=== PATIENT | male | born 1940 | race Caucasian/White ===

== ENCOUNTER → 2017-10-30 | Outpatient (CLI) | payer MEDICARE ==
[~2017-10-30] MED LIST: CIPROFLOXACIN500 MG PO; GLUCOTROL; GLUCOTROL10 MG PO; HUMALOG MI100 UNITS/; IOPAMIDOL 370 MG/ML 200 ML INFUS..BTL INJ ONE; KEFLEX500 MG PO; LOSARTAN POTASS25 MG PO; METFORMIN HCL500 MG PO; METRONIDAZOLE500 MG PO; SIMVASTATIN40 MG PO; SODIUM CHLORIDE 0.9% 50ML 50 ML ONE; VENLAFAXINE HCL75 MG PO; ZOFRAN ODT4 MG PO; [UNRECOGNIZED DRUG - REMARK]
[2017-10-30 14:15] LABS: BLOOD UREA NITROGEN 10 mg/dL (7-26); BUN/CREATININE RATIO 9 (6-25); CREATININE, SERUM 1.06 mg/dL (0.72-1.25); EST GLOMERULAR FILTRATION RATE > 60 ML/MIN (60-)
--- NOTE | 2017-10-31 08:22 | Diagnostic Imaging Report ---
TECHNIQUE: Abdominopelvic and lower extremity CT with and without IV contrast. 3D reconstructions were also performed. COMPARISON: CT abdomen 04/04/2015 (report available but not images not available for review). FINDINGS: Abdominal Vasculature: Extensive calcified and non-calcified atherosclerotic plaque throughout the abdominal aorta and its major branches. The abdominal aorta is normal in caliber without aneurysm. Atherosclerotic changes with mild stenosis of the origin of the celiac artery. The SMA and JASMIN are patent. There are single patent renal arteries bilaterally. Venous phase images are not available for evaluation of the IVC. Kidneys: The kidneys are unremarkable. Abdominal Viscera: The liver, spleen, and adrenal glands are unremarkable on arterial phase images. Mild fatty atrophy of the pancreas. There is no intra-abdominal or retroperitoneal adenopathy. Possible subcentimeter distal periesophageal lymph nodes versus small distal esophageal varices. Mild nonspecific stranding in the small bowel mesentery. Normal appendix. Skeleton: There are no suspicious lytic or blastic lesions. Thorax: The visualized lungs demonstrated patchy dependent atelectasis. There are no pleural effusions. Bilateral lower extremities: The bilateral common femoral artery, superficial femoral artery, and popliteal artery are patent. Mild atherosclerotic changes are noted in the bilateral superficial femoral artery. The bilateral proximal and mid anterior and posterior tibial and peroneal arteries demonstrate atherosclerotic changes with multifocal mild to moderate stenoses, but appear patent; however there is poor opacification of the distal vessels. No delayed images were obtained. IMPRESSION No evidence of aortic aneurysm or dissection. 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 Patent celiac, SMA, and JASMIN. Patent bilateral WIRE DRAWING DIE MAKER, SFA, and popliteal arteries. Patent bilateral proximal and mid anterior and posterior tibial arteries and peroneal arteries, however the distal vessels are not opacified. Delayed images were not obtained, therefore evaluation is limited of this area (lack of opacification may reflect slow flow and evaluation for occlusion is limited). Signed by: Dr. Trina Bailey MD on 10/31/2017 8:19 AM
== END ==
LOC: CT 13:37
PROVIDERS: ATTEND Family Medicine
DX: I73.9 Peripheral vascular disease, unspecified (principal)
CPT/HCPCS: 36415; 75635; 82565; 84520; Q9967

== ENCOUNTER 2018-12-05 16:32 | Observation (INO) | payer MEDICARE ==
[~2018-12-05] VITALS: Ht 177.8 cm; Wt 81.4 kg
[~2018-12-05 16:32] MED LIST changes: -IOPAMIDOL 370 MG/ML 200 ML INFUS..BTL INJ ONE; -SODIUM CHLORIDE 0.9% 50ML 50 ML ONE
--- OUTSIDE RECORDS SUMMARY | 2018-12-05 16:35 | XMS REPORT | Summary of Care ---
Author Author [facility] Organization [facility] Address Unknown Phone Unavailable Encounter HQ Encntr_alias(FIN) [id number] Date(s): 09/21/18 - 09/21/18 [facility] [address] [place] [address]- [phone] Discharge Disposition: Home or Self Care Attending Physician: Etienne Emerson DPM Referring Physician: Etienne Emerson DPM Vital Signs No data available for this section Problem List No data available for this section Allergies, Adverse Reactions, Alerts No data available for this section Medications No data available for this section Results No data available for this section Immunizations No data available for this section Procedures No data available for this section Social History No data available for this section Assessment and Plan No data available for this section
--- OUTSIDE RECORDS SUMMARY | 2018-12-05 16:35 | XMS REPORT | Continuity of Care Document ---
Author Author [facility] [employer] [facility] [employer] Address Unknown Phone Unavailable Care Team Providers Care Hot Dip Galvanizer Name Role Phone [facility] [employer] Unavailable Unavailable Problems Problem Status Onset Date Classification Date Reported Comments Source DX: ULCER LT 1ST Active 09/07/2018 [facility] Medications No Data Provided for This Section Allergies, Adverse Reactions, Alerts No Known Medication Allergies Immunizations No Data Provided for This Section Results No Data Provided for This Section Pathology Reports No Data Provided for This Section Diagnostic Reports Report Value Date Source Foot wo contrast MRI Exam: Left Foot wo contrast MRI Clinical Indication: - L97.412 Non-pressure chronic ulcer of right heel and midfoot with fat layer exposed. Lump on plantar region near 1st metatarsal. Pain and trouble bearing weight. Comparison: None TECHNIQUE: Multiplanar, multisequence noncontrast magnetic resonance imaging of the left forefoot. IV contrast: None. FINDINGS: Bones: Visualized bone marrow signal is within normal limits. No abnormal marrow edema or decreased T1 signal to suggest osteomyelitis. No acute fracture. Soft tissues: Mild diffuse subcutaneous edema present throughout the forefoot. No focal fluid collection identified. No soft tissue mass identified. Muscles: Moderate fatty atrophy of the intrinsic muscles of the foot with mild heterogeneous increased T2/STIR signal most likely relating to chronic denervation/neuropathic change. No intramuscular fluid collection. Tendons: There is nodular thickening along the visualized portion of the plantar fascia consistent with fibromatosis. No other focal tendon signal abnormality, or evidence for tenosynovitis. IMPRESSION: 1. No evidence of osteomyelitis in the left foot. 2. Mild diffuse subcutaneous edema without focal fluid collection. 3. Plantar fascia fibromatosis. 4. Moderate foot muscle atrophy most likely relating to chronic denervation/neuropathic change. SL: [id number] 09/21/2018 [facility] Consultation Notes No Data Provided for This Section Discharge Summaries No Data Provided for This Section History and Physicals No Data Provided for This Section Vital Signs No Data Provided for This Section Encounters Location Location Details Encounter Type Encounter Number Reason For Visit Attending Provider ADM Date DC Date Status Source [facility] [id number] Etienne Emerson 09/21/2018 09/22/2018 [facility] Procedures No Data Provided for This Section Assessment and Plan No Data Provided for This Section Plan of Care No Data Provided for This Section Social History Social History Date Source No data available for this section 09/22/2018 [facility] Family History No Data Provided for This Section Advance Directives No Data Provided for This Section Functional Status No Data Provided for This Section
--- OUTSIDE RECORDS SUMMARY | 2018-12-05 16:35 | XMS REPORT ---
Author Author [facility] Address Unknown Phone Unavailable Care Team Providers Care Precision Dancer Name Role Phone Shelly PONCE Unavailable Unavailable Cristiana HERRERA Unavailable Unavailable Payers Payer Name Policy Type Policy Number Effective Date Expiration Date Problems This patient has no known problems. Allergies, Adverse Reactions, Alerts Allergy Name Allergy Type Status Severity Reaction(s) Onset Date Inactive Date Treating Clinician Comments No Known Allergies DA Active U 2017-04-12 00:00:00 Medications This patient has no known medications. Encounters Start Date/Time End Date/Time Encounter Type Admission Type Attending Clinicians Care Facility Care Department Encounter ID 2018-09-21 18:34:00 2018-09-21 18:34:00 Outpatient [id number] Results Test Description Test Time Test Comments Text Results Atomic Results Result Comments BASIC METABOLIC PANEL 2018-12-04 12:59:00 SODIUM (test code=NA) 140 mmol/L 136-145 POTASSIUM (test code=K) 4.0 mmol/L 3.5-5.1 CHLORIDE (test code=CL) 104.0 mmol/L 98-107 CARBON DIOXIDE (test code=CO2) 25.0 mmol/L 21-32 ANION GAP (test code=GAP) 15.0 10-20 GLUCOSE (test code=GLU) 239 mg/dL 74-106 BLOOD UREA NITROGEN (test code=BUN) 20 mg/dL 7-18 GLOMERULAR FILTRATION RATE (test code=GFR) > 60 mL/min >=60 Estimated GFR by using Modified MDRD formula.Chronic kidney disease is defined as either kidney damageor GFR <60 mL/min/1.73 m2 for >3 months. CREATININE (test code=CREAT) 1.00 mg/dL 0.7-1.3 BUN/CREATININE RATIO (test code=BUN/CREA) 19.2 10-20 CALCIUM (test code=CA) 8.8 mg/dL 8.5-10.1 HEPATIC FUNCTION [id number] 12:59:00* Test Item Value Reference Range Comments TOTAL PROTEIN (test code=PROT) 6.7 gram/dL 6.4-8.2 ALBUMIN (test code=ALB) 3.5 g/dL 3.4-5.0 GLOBULIN (test code=GLOB) 3.2 gram/dL 2.7-4.2 ALBUMIN/GLOBULIN RATIO (test code=A/G) 1.1 0.75-1.50 BILIRUBIN TOTAL (test code=BILT) 0.90 mg/dL 0.0-1.0 BILIRUBIN DIRECT (test code=BILD) 0.27 mg/dL 0.0-0.20 SGOT/AST (test code=AST) 28 IUnit/L 15-37 SGPT/ALT (test code=ALT) 27 IUnit/L 12-78 ALKALINE PHOSPHATASE TOTAL (test code=ALKP) 106 IUnit/L 45-117 Note change in reference range due to change in reagent. [id number] 12:59:00* Test Item Value Reference Range Comments TROPONIN-I (test code=TROPI) <0.015 ng/mL 0-0.045 [id number] 12:55:00* Test Item Value Reference Range Comments AMMONIA (test code=AMM) 21 umol/L 11-32 BASIC METABOLIC [id number] 12:48:00* Test Item Value Reference Range Comments SODIUM (test code=NA) 140 mmol/L 136-145 POTASSIUM (test code=K) 4.0 mmol/L 3.5-5.1 CHLORIDE (test code=CL) 104.0 mmol/L 98-107 CARBON DIOXIDE (test code=CO2) mmol/L 21-32 ANION GAP (test code=GAP) 10-20 GLUCOSE (test code=GLU) mg/dL 74-106 BLOOD UREA NITROGEN (test code=BUN) mg/dL 7-18 GLOMERULAR FILTRATION RATE (test code=GFR) mL/min >=60 CREATININE (test code=CREAT) mg/dL 0.7-1.3 BUN/CREATININE RATIO (test code=BUN/CREA) 10-20 CALCIUM (test code=CA) mg/dL 8.5-10.1 HEPATIC FUNCTION [id number] 12:48:00* Test Item Value Reference Range Comments TOTAL PROTEIN (test code=PROT) gram/dL 6.4-8.2 ALBUMIN (test code=ALB) g/dL 3.4-5.0 GLOBULIN (test code=GLOB) gram/dL 2.7-4.2 ALBUMIN/GLOBULIN RATIO (test code=A/G) 0.75-1.50 BILIRUBIN TOTAL (test code=BILT) mg/dL 0.0-1.0 BILIRUBIN DIRECT (test code=BILD) mg/dL 0.0-0.20 SGOT/AST (test code=AST) IUnit/L 15-37 SGPT/ALT (test code=ALT) IUnit/L 12-78 ALKALINE PHOSPHATASE TOTAL (test code=ALKP) IUnit/L 45-117 [id number] 12:48:00* Test Item Value Reference Range Comments TROPONIN-I (test code=TROPI) ng/mL 0-0.045 CBC W/O [id number] 12:46:00* Test Item Value Reference Range Comments WHITE BLOOD CELL (test code=WBC) 10.6 K/mm3 4.5-12.5 RED BLOOD CELL (test code=RBC) 3.98 mill/mm3 4.0-5.8 HEMOGLOBIN (test code=HGB) 8.7 gram/dL 13.0-17.5 HEMATOCRIT (test code=HCT) 29.6 % 42.0-52.0 MEAN CELL VOLUME (test code=MCV) 74.4 fL 80-98 MEAN CELL HGB (test code=MCH) 21.9 picogram 27.0-33.0 MEAN CELL HGB CONCETRATION (test code=MCHC) 29.4 gram/dL 33.0-36.0 RED CELL DISTRIBUTION WIDTH (test code=RDW) 18.7 % 11.6-16.2 PLATELET COUNT (test code=PLT) 218 K/mm3 150-450 MEAN PLATELET VOLUME (test code=MPV) 10.6 fL 6.7-11.0 - XR CHEST 1 [id number] 11:02:00 FAX: Giuliana Ames [phone] [place]: St: REG FAX: Mulugeta Hadley DO Name: OTILIA ROCKJANE CARRILLO [facility] : 1940 Age/S: 78/M [address] [facility] Unit #: [id number] Loc: [place] [address] Phys: Mulugeta Hadley DO Acct: [id number] Dis Date: Status: REG ER PHONE #: [phone] Exam Date: 12/04/2018 1051 FAX #: [phone] Reason: Altered Mental Status EXAMS: CPT CODE: [id number] XR CHEST 1 V 25472 HISTORY: Confusion. COMPARISON: X-ray from March 15, 2005. No acute infiltrates, effusion or congestion is noted. Hyperinflation. The cardiac and mediastinal silhouette are within normal limits. IMPRESSION: No acute infiltrates, effusion or congestion. at 1102 Reported and signed by: Alphonso Gonzalez M.D. CC: Giuliana Miguel MD; Mulugeta Hadley DO Technologist: HENRY CASTILLO JR Trnscrd Date/Time/By: 12/04/2018 (1102) : By: [email or web address] Orig Print D/T: S: 12/04/2018 (7624) PAGE 1 Signed Report URINALYSIS [id number] 11:01:00* Test Item Value Reference Range Comments UA COLOR (test code=COLU) YELLOW YELLOW UA APPEARANCE (test code=APPU) CLEAR CLEAR UA GLUCOSE DIPSTICK (test code=DGLUU) >1000 (4+) mg/dL NEGATIVE UA BILIRUBIN DIPSTICK (test code=BILU) NEGATIVE mg/dL NEGATIVE UA KETONE DIPSTICK (test code=KETU) 40 (2+) mg/dL NEGATIVE UA SPECIFIC GRAVITY (test code=SGU) 1.033 1.001-1.035 UA BLOOD DIPSTICK (test code=GEORGINA) Negative mg/dL NEGATIVE UA PH DIPSTICK (test code=NARESH) 5.5 5.0-8.0 UA PROTEIN DIPSTICK (test code=PROU) 20 (Trace) mg/dL NEGATIVE UA UROBILINIOGEN DIPSTICK (test code=URO) Normal mg/dL NEGATIVE UA NITRITE DIPSTICK (test code=AMY) NEGATIVE NEGATIVE UA LEUKOCYTE ESTERASE W REFLEX (test code=LEUUR) NEGATIVE Uriel/uL NEGATIVE UA WBC (test code=WBCU) 0-5 per HPF 0-5 UA RBC (test code=RBCU) 0-2 #/HPF 0-5 UA EPITHELIAL CELLS (test code=EPIU) FEW per HPF FEW UA BACTERIA (test code=BACU) FEW #/HPF NONE UA MUCUS (test code=MUCU) FEW #/LPF FEW Urine Source? Clean CatchCTA ABD/PEL/RUN [id number] 07:45:00 [place] [address] Patient Name: CARLITO ROCK MR #: [id number] : 1940 Age/Sex: 77/M Req #: [id number] Adm Physician: Ordered by: LEOLA PONCE MD Report #: [id number] Location: CT Room/Bed: Procedure: [id number] CT/CTA ABD/PEL/RUN OFF Exam Date: 10/30/17 Exam Time: 1450 REPORT STATUS: Signed TECHNIQUE: Abdominopelvic and lower extremity CT with and without IV c ontrast. 3D reconstructions were also performed. COMPARISON: CT abdomen 04/04/2015 (report available but not images not available for review). F INDINGS: Abdominal Vasculature: Extensive calcified and non-calcified atherosc lerotic plaque throughout the abdominal aorta and its major branches. The abd ominal aorta is normal in caliber without aneurysm. Atherosclerotic changes w ith mild stenosis of the origin of the celiac artery. The SMA and JASMIN are jaramillo nt. There are single patent renal arteries bilaterally. Venous phase images a re not available for evaluation of the IVC. Kidneys: The kidneys are unre markable. Abdominal Viscera: The liver, spleen, and adrenal glands are unre markable on arterial phase images. Mild fatty atrophy of the pancreas. There i s no intra-abdominal or retroperitoneal adenopathy. Possible subcentimeter dis travis periesophageal lymph nodes versus small distal esophageal varices. Mild nonspecific stranding in the small bowel mesentery. Normal appendix. Skele ton: There are no suspicious lytic or blastic lesions. Thorax: The visualiz ed lungs demonstrated patchy dependent atelectasis. There are no pleural effus ions. Bilateral lower extremities: The bilateral common femoral artery, s uperficial femoral artery, and popliteal artery are patent. Mild atherosclerot ic changes are noted in the bilateral superficial femoral artery. The bilatera l proximal and mid anterior and posterior tibial and peroneal arteries demonst rate atherosclerotic changes with multifocal mild to moderate stenoses, but ap pear patent; however there is poor opacification of the distal vessels. No del ayed images were obtained. IMPRESSION No evidence of aortic aneurysm or dissection. 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 Patent celiac, S MA, and JASMIN. Patent bilateral MANAGER CONTINUOUS IMPROVEMENT, SFA, and popliteal arteries. Patent nevin ateral proximal and mid anterior and posterior tibial arteries and peroneal ar teries, however the distal vessels are not opacified. Delayed images were not obtained, therefore evaluation is limited of this area (lack of opacification may reflect slow flow and evaluation for occlusion is limited). Signed by : Dr. Chris Ayala MD on 10/31/2017 8:19 AM Dictated By: CHRIS AYALA MD Radha ctronically Signed By: CHRIS AYALA MD on 10/31/17818 Transcribed By: FISH raines 10/31/17818 COPY TO: LEOLA PONCE MD MRI SHOULDER LEFT WO [facility] [address] [address] Patient Name: CARLITO ROCK MR #: [id number] : 1940 Age/Sex: 76/M Req #: [id number] Adm Physician: Ordered by: REDDY HERRERA MD Report #: [id number] Location: MRI Room/Bed: Procedure: [id number] MRI/MRI SHOULDER L EFT WO Exam Date: 03/03/17 Exam Time: 1430 REP ORT STATUS: Signed TECHNIQUE: Magnetic resonance imaging of the LEFT SHOULD ER was performed WITHOUT injected contrast. COMPARISON: None available. HISTORY: Pain FINDINGS: MUSCLES AND TENDONS: Rotator Cuff: Tendons: Large focus of globular bursal surface calcific tendinopathy involving the supraspinatus and infraspinatus extending 3 cm in transverse dimension. Bursal surface fraying without full-thickness rotator cuff tear. Muscles: No focal muscle atrophy. Biceps Tendon: The long head of the biceps tendon is intact and within the intertube rcular groove. GLENOHUMERAL JOINT: Glenoid Labrum: No displaced tea r. Articular Cartilage: No focal defect. AC JOINT AND ACROMION: Mild hypertrophic degenerative changes of the acromioclavicular joint. The acromion is unremarkable. BONE: None No acute fracture. SOFT TISSUES: Subacromial subdeltoid bursitis. IMPRESSION: Large focus of bur tolu surface calcific tendinopathy of the supraspinatus/infraspinatus with burs al surface fraying and subacromial subdeltoid bursitis. No full thickness rotator cuff tear. Signed by: Dr. Nohelia Fuller M.D. on 03/03/2017 3:31 PM Dictated By: NOHELIA FULLER MD 153 Transcribed By: FISH on 03/03/171530 COPY TO: REDDY HERRERA MD SHOULDER LEFT COMPLETE [place] [address] Patient Name: CARLITO ROCK MR #: [id number] : 1940 Age/Sex: 76/M Req #: [id number] Adm Physician: Ordered by: REDDY HERRERA MD Report #: [id number] Location: [facility] Room/Bed: Procedure: [id number] DX/SHOULDER LEFT C OMPLETE Exam Date: 01/20/17 Exam Time: 1210 RE PORT STATUS: Signed PROCEDURE: SHOULDER LEFT COMPLETE TECHNIQUE: Roller Coaster Operator al and external rotation AP views left shoulder INDICATION: Shoulder pain COMPARISON: None. FINDINGS: The left shoulder is intact. Mild glenohum eral joint space narrowing with marginal osteophytosis. Calcification at the greater tubercle soft tissues. Mild acromioclavicular joint space narrowing w ith osteophytosis. Intact regional skeleton. Normal soft tissues. C ONCLUSION: 1. Mild glenohumeral and acromioclavicular degenerative change. 2 . Calcification superior to the greater tubercle suggesting calcific tendinos is Dictated by: Kris Olivas M.D. on 01/20/2017 at 12:42 Electronically approved by: Kris Olivas M.D. on 01/20/2017 at 12:42 Dictated By: KRIS OLIVAS MD 1242 Transcribed By: CLAUDETTE on 01/20/17 1242 COPY TO: REDDY HERRERA MD
[2018-12-05 17:15] VITALS: BP 146/60
[2018-12-05 17:27] LABS: BASOPHILS % 0.2 % (0.0-1.0); EOSINOPHILS # (AUTO) 0.3 (0.0-0.4); EOSINOPHILS % 2.7 % (0.0-6.0); HEMATOCRIT 30.8 % (38.2-49.6); HEMOGLOBIN 8.9 g/dL (14.0-18.0); LYMPHOCYTES # (AUTO) 4.7 (1.0-3.2); LYMPHOCYTES % 36.7 % (18.0-39.1); MEAN CORPUSCULAR HEMOGLOBIN 21.8 pg (28-32); MEAN CORPUSCULAR HGB CONC 28.9 g/dL (31-35); MEAN CORPUSCULAR VOLUME 75.3 fL (81-99); MONOCYTES # (AUTO) 0.8 (0.2-0.8); MONOCYTES % 6.1 % (4.4-11.3); NEUTROPHILS # (AUTO) 6.9 (2.1-6.9); NEUTROPHILS % 53.9 % (38.7-80.0); PLATELET COUNT 223 x10e3/uL (140-360); RED BLOOD COUNT 4.09 x10e6/uL (4.3-5.7); RED CELL DISTRIBUTION WIDTH 19.1 % (11.7-14.4)
[2018-12-05 17:41] VITALS: BP 146/60
[2018-12-05 17:42] VITALS: BP 146/60
[2018-12-05 17:46] LABS: ALANINE AMINOTRANSFERASE 18 IU/L (0-55); ALBUMIN 3.2 g/dL (3.5-5.0); ALBUMIN/GLOBULIN RATIO 1.1 (0.8-2.0); ALKALINE PHOSPHATASE 94 IU/L (40-150); ANION GAP 12.4 mmol/L (8-16); BLOOD UREA NITROGEN 15 mg/dL (7-26); BUN/CREATININE RATIO 15 (6-25); CALCIUM 8.6 mg/dL (8.4-10.2); CARBON DIOXIDE 25 mmol/L (22-29); CHLORIDE 101 mmol/L (98-107); CREATININE, SERUM 0.97 mg/dL (0.72-1.25); EST GLOMERULAR FILTRATION RATE > 60 ML/MIN (60-); GLUCOSE 174 mg/dL (74-118); POTASSIUM 3.4 mmol/L (3.5-5.1); SODIUM 135 mmol/L (136-145)
[2018-12-05] MEDS ORDERED: VITAMIN B-121000 MCG PO (17:48)
[2018-12-05 18:04] LABS: % IRON SATURATION 5 % (15-50); IRON 28 ug/dL (65-175); TOTAL IRON BINDING CAPACITY 587 ug/dL (261-478); TRANSFERRIN 419 mg/dL (174-364)
--- NOTE | 2018-12-05 19:05 | NUR ---
RECEIVED REPORT FROM PREVIOUS NURSE. CALL LIGHT WITHIN REACH. PATIENT IN BED. DAUGHTER AT BEDSIDE
[2018-12-05] MEDS ORDERED: HUMALOG100 UNIT/1 (19:07)
[2018-12-05] MEDS ORDERED: OZEMPIC SQ (19:11)
[2018-12-05] MEDS ORDERED: ZOFRAN4 MG PO (19:16)
[2018-12-05] MEDS ORDERED: DEXTROSE 50% SYRINGE 50 ML IV PRN ×2 (19:30)
[2018-12-05] MEDS ORDERED: ONDANSETRON HCL 4 MG ORAL DISINTEGRATING TAB PO PRN (19:45)
[2018-12-05 20:00] VITALS: BP 163/65
[2018-12-05 20:31] LABS: ANISOCYTOSIS MODERATE; EOSINOPHILS % (MANUAL) 2 % (0-7); LYMPHOCYTES % (MANUAL) 35 % (19-48); MONOCYTES % (MANUAL) 3 % (3.4-9.0); NEUTROPHILS % (MANUAL) 60 % (40-74)
[2018-12-05 20:32] LABS: HYPOCHROMASIA MODERATE; PLATELET ESTIMATE ADEQUATE; PLATELET MORPHOLOGY COMMENT NORMAL; RBC MORPHOLOGY COMMENT ABNORMAL
[2018-12-05 20:44] VITALS: BP 163/65
[2018-12-05] MEDS ORDERED: INSULIN LISPRO 100 UNIT/1 ML 3ML VIAL SQ SCH (21:00)
[2018-12-05] MEDS: INSULIN LISPRO 100 UNIT/1 ML 3ML VIAL SQ SCH (21:04)
[2018-12-05] MEDS ORDERED: SODIUM CHLORIDE 0.9% 50ML 50 ML ONE (23:37)
[2018-12-05] MEDS ORDERED: IOPAMIDOL 370 MG/ML 200 ML INFUS..BTL INJ ONE (23:37)
[2018-12-06] VITALS (7 sets, daily range): BP systolic 141–166; BP diastolic 61–66
--- NOTE | 2018-12-06 00:11 | Consultation ---
DATE OF CONSULTATION: 12/05/2018 GI consult note REASON FOR CONSULT: 1. Microcytic anemia, likely iron deficiency. 2. Cryptogenic liver cirrhosis with esophageal varices. HISTORY OF PRESENT ILLNESS: A 78 years old very pleasant male, who got admitted with probable hepatic encephalopathy, blood work revealed significant anemia with microcytic indices. Hemoglobin 8.9, MCV 75.3. He sees Dr. Mccall, my associate, as an outpatient. No episode of any heparin, hematemesis, hematochezia, or melena reported. The patient denies any abdominal pain. Tolerating oral diet. He has had several loose BM today this morning. REVIEW OF SYSTEMS: 12-point system reviewed, symptomatology is limited as per HPI. PAST MEDICAL HISTORY: Diabetes, hypertension, dyslipidemia, and depression, cryptogenic liver cirrhosis, and esophageal varices. PAST SURGICAL HISTORY: Noncontributory. FAMILY HISTORY: Negative for any GI or DIRECTOR OF STRATEGIC ALLIANCES malignancies. SOCIAL HISTORY: No smoking, alcohol, or any illicit drug use. ALLERGIES: NONE. HOME MEDICATIONS: Vitamin B12, insulin lispro, metformin, Zofran, and venlafaxine. PHYSICAL EXAMINATION: VITAL SIGNS: Temperature 98.2, pulse 58, respirations 17, and blood pressure 163/65, and oxygen saturation 100% on room air. GENERAL: Alert, awake, oriented, and coherent. HEENT: Oral mucosa is moist. Anicteric sclerae. CARDIOVASCULAR SYSTEM: S1, S2. Regular. LUNGS: Bilaterally grossly clear. ABDOMEN: Soft, nontender. No palpable mass or hernia, no palpable shifting dullness. No mass or hernia. Bowel sounds present. EXTREMITIES: Warm. No leg edema. LABORATORY DATA: Sodium 135, potassium 3.4, chloride 101, bicarb 25, BUN 15, creatinine 0.97, and glucose 174. Liver enzymes showed a total bilirubin 0.9, AST 19, ALT 18, alkaline phosphatase 94, and ammonia level 91. Iron profile showed serum iron 28, TIBC of 587, iron saturation 5. No imaging studies performed. IMPRESSION: 1. Microcytic anemia, iron profile suggestive of iron deficiency. 2. Documented cryptogenic liver cirrhosis, (likely due to underlying nonalcoholic steatohepatitis), one of the CT scan performed in 2017 showed idiopathic esophageal varices without radiographic evidence of any liver cirrhosis, ascites, or portal hypertension. PLAN: Check stool for occult blood. If stool for occult blood is positive, then this will warrant further workup with bidirectional endoscopy. This can electively be done as an outpatient. Low-salt diet and lactulose to ensure one or two bowel movement daily. Contrast enhanced CT of the abdomen and pelvis to check liver morphology, ascites and an evidence of any portal hypertension. The patient's platelet count is normal. Therefore, likelihood of portal hypertension is less. However, the patient's platelet count was noted quite low in 2014. Therefore, portal hypertension cannot be completely excluded. I thank Dr. Hickman for allowing me to participate in the care of this patient. Mika Conde MD SA/BART /[id number]
--- NOTE | 2018-12-06 01:33 | Diagnostic Imaging Report ---
EXAM: CT Abdomen and Pelvis WITH contrast INDICATION: ^Liver cirrhosis, portal hypertension , weakness vomiting COMPARISON: Abdominal CT 10/30/2017 TECHNIQUE: Abdomen and pelvis were scanned utilizing a multidetector helical scanner from the lung base to the pubic symphysis after administration of IV contrast. Coronal and sagittal reformations were obtained. Routine protocol was performed. Scan was performed when during portal venous phase. IV CONTRAST: 100 mL of Isovue 370 ORAL CONTRAST: None COMPLICATIONS: None RADIATION DOSE: Total DLP: 434 mGy*cm Estimated effective dose: (DLP x 0.015 x size factor) mSv CTDIvol has been reviewed. It is below the limits set by the Radiation Protocol Committee (RPC). Dose modulation, iterative reconstruction, and/or weight based adjustment of the mA/kV was utilized to reduce the radiation dose to as low as reasonably achievable. FINDINGS: LINES and TUBES: None. LOWER THORAX: There is bibasilar atelectasis. HEPATOBILIARY: Widened hepatic fissure. No focal hepatic lesions. No biliary ductal dilation. GALLBLADDER: A small radiopaque gallstone in the gallbladder neck. No wall thickening. SPLEEN: Mild splenomegaly, measures up to 13 cm in maximum dimension. PANCREAS: No focal masses or ductal dilatation. ADRENALS: No adrenal nodules KIDNEYS/URETERS: Kidneys enhance symmetrically. No hydronephrosis. No cystic or solid mass lesions. No stones. GI TRACT: No abnormal distention, wall thickening, or evidence of bowel obstruction. There are diverticula within the colon without evidence of diverticulitis. Appendix is normal. PELVIC ORGANS/BLADDER: Circumferential bladder wall thickening. Mild prostatomegaly. LYMPH NODES: No lymphadenopathy. VESSELS: Esophageal varices. Calcifications of the abdominal aorta and major branches. Main portal vein measures 1.5 cm in diameter, slightly dilated. PERITONEUM / RETROPERITONEUM: No free air or fluid. BONES: There are degenerative changes in the lumbar spine. SOFT TISSUES: Rectus diastases. IMPRESSION: 1. Findings of hepatic cirrhosis with portal hypertension including gastroesophageal varices and mild splenomegaly. 2. Circumferential urinary bladder wall thickening, correlate for cystitis. Signed by: Buzz Rodríguez DO on 12/06/2018 1:29 AM
--- NOTE | 2018-12-06 07:13 | History and Physical ---
HISTORY OF PRESENT ILLNESS: This is a 78-year-old gentleman who comes in with intractable nausea, vomiting, and has been in the ER recently, was sent home. The patient comes to the office yesterday with nausea, vomiting and excessive tiredness and fatigue. He was admitted directly to the hospital for observation for possible fluids and also for possible endoscopy secondary to microcytic anemia. PAST MEDICAL HISTORY: History of cirrhosis of the liver. The patient has a history of diabetes mellitus, uncontrolled, hypertension, hyperlipidemia, depression and history of esophageal varices about two years ago. FAMILY HISTORY: The patient is positive for diabetes and hypertension. SOCIAL HISTORY: No EtOH. No history of IV drug abuse. No history of alcohol either. ALLERGIES: NO RECORDED ALLERGIES. MEDICATIONS: He takes at home are insulin lispro, insulin Lantus, metformin 500 mg twice a day, Zofran 4 mg was given recently, venlafaxine 75 mg daily. The patient also takes Ozempic 1 unit subcutaneously daily. REVIEW OF SYSTEMS: Negative for chest pain. No shortness of breath. Positive for extreme fatigue. Positive for nausea. Positive for vomiting. No diarrhea. No constipation. No rectal bleeding. No hematochezia. No hematemesis. The patient has no diplopia. No blurry vision. Positive for repeated falls and also decreased sensory perception in the lower extremity with frequent falls. PHYSICAL EXAMINATION: GENERAL: The patient is alert and oriented x3. VITAL SIGNS: The patient's temperature is 99.3, pulse of 66, respirations of 16, and blood pressure is 152/61. HEENT: Normocephalic, atraumatic. Pupils are reactive to light and accommodation. The patient does not have any icterus. CVS: S1, S2 normal. Regular rate and rhythm. ABDOMEN: Nontender, nondistended. EXTREMITIES: No clubbing. No cyanosis. No edema. MENTAL STATUS: Alert and oriented x3. Slow in processing. LAB[place]ATORY [place]: [place] [address], hemoglobin is 8.9, hematocrit of 30.8, platelet count is 223. No left shift present. The patient's chemistry show a sodium of 135, potassium of 3.4, BUN was 15, creatinine 0.97, glucose of 174. Iron was 28, TIBC 587, percent saturation of 5, transferrin is 519. Ammonia was 91. ASSESSMENT: A 78-year-old male with history of cryptogenic cirrhosis with dehydration. PLAN: 1. To give the patient IV fluids with potassium in it, give a L to 2 L. 2. Check labs tomorrow. 3. Dr. Mika Conde has seen the patient for cirrhosis and also probably for idiopathic varices. The patient will probably warrant works for varices. 4. Hepatic encephalopathy. We will continue the patient on lactulose to ensure 2-3 bowel movements a day. 5. CT scan shows cirrhosis and mild splenomegaly. We will continue monitoring the patient's liver status. 6. Diabetes mellitus. Continue on current home medication. We will hold off on Ozempic, this might have caused nausea and vomiting. 7. Portal hypertension secondary to liver with cirrhosis and splenomegaly. We will continue monitoring it. Further recommendation per clinical course. We will continue to monitor the patient. Possible discharge in 1 to 2 days. We will keep the patient on observation. MD JC Hameed/ANATOLIYL /[id number]
--- NOTE | 2018-12-06 07:24 | NUR ---
GAVE REPORT TO ONCOMING NURSE. CALL LIGHT WITHIN REACH. PATIENT IN BED ASLEEP.
[2018-12-06] MEDS: METFORMIN HCL 500 MG TAB PO SCH ×2 (08:35→17:18)
[2018-12-06] MEDS: VENLAFAXINE HCL 75 MG TAB PO SCH (08:36)
[2018-12-06] MEDS: CYANOCOBALAMIN 1,000 MCG TAB PO SCH (08:36)
[2018-12-06] MEDS: IRON SUCROSE 100 MG in SODIUM CHLORIDE 0.9% 100 ML 100 ML IV SCH (08:56)
[2018-12-06] MEDS: KCL 20MEQ/.9 SOD CHL 1,000 ML IV SCH ×2 (08:57→22:28)
[2018-12-06] MEDS: INSULIN LISPRO 100 UNIT/1 ML 3ML VIAL SQ SCH ×4 (09:03→21:26)
[2018-12-06 14:24] LABS: BILIRUBIN,URINE NEGATIVE (NEGATIVE); CLARITY,URINE SL CLOUDY (CLEAR); COLOR,URINE YELLOW (YELLOW); KETONES,URINE NEGATIVE (NEGATIVE); LEUKOCYTE ESTERASE ,URINE NEGATIVE (NEGATIVE); NITRITE,URINE NEGATIVE (NEGATIVE); PROTEIN,URINE DIPSTICK NEGATIVE (NEGATIVE); URINE UROBILINOGEN 0.2 mg/dL (0.2 - 1)
[2018-12-06 14:36] LABS: BACTERIA,URINE MODERATE /HPF; EPITHELIAL CELLS,URINE FEW /LPF; MUCUS,URINE MODERATE (RARE)
--- NOTE | 2018-12-06 19:00 | NUR ---
Received report from previous nurse. call light within reach. patient in bed.
[2018-12-07] VITALS (8 sets, daily range): BP systolic 124–162; BP diastolic 44–73
[2018-12-07 05:29] LABS: BASOPHILS % 0.1 % (0.0-1.0); EOSINOPHILS % 10.5 % (0.0-6.0); HEMOGLOBIN 7.5 g/dL (14.0-18.0); LYMPHOCYTES # (AUTO) 4.6 (1.0-3.2); MEAN CORPUSCULAR HEMOGLOBIN 21.6 pg (28-32); MEAN CORPUSCULAR HGB CONC 28.8 g/dL (31-35); MEAN CORPUSCULAR VOLUME 74.9 fL (81-99); MONOCYTES # (AUTO) 0.7 (0.2-0.8); MONOCYTES % 7.2 % (4.4-11.3); NEUTROPHILS # (AUTO) 3.3 (2.1-6.9); NEUTROPHILS % 33.8 % (38.7-80.0); PLATELET COUNT 188 x10e3/uL (140-360); RED BLOOD COUNT 3.47 x10e6/uL (4.3-5.7); RED CELL DISTRIBUTION WIDTH 19.1 % (11.7-14.4)
[2018-12-07 05:45] LABS: ALANINE AMINOTRANSFERASE 16 IU/L (0-55); ALBUMIN 2.9 g/dL (3.5-5.0); ALBUMIN/GLOBULIN RATIO 1.3 (0.8-2.0); ALKALINE PHOSPHATASE 79 IU/L (40-150); ANION GAP 10.6 mmol/L (8-16); BLOOD UREA NITROGEN 5 mg/dL (7-26); BUN/CREATININE RATIO 7 (6-25); CALCIUM 8.2 mg/dL (8.4-10.2); CARBON DIOXIDE 26 mmol/L (22-29); CHLORIDE 109 mmol/L (98-107); CREATININE, SERUM 0.75 mg/dL (0.72-1.25); EST GLOMERULAR FILTRATION RATE > 60 ML/MIN (60-); GLUCOSE 97 mg/dL (74-118); POTASSIUM 3.6 mmol/L (3.5-5.1); SODIUM 142 mmol/L (136-145)
--- NOTE | 2018-12-07 06:05 | NUR ---
PATIENT RECEIVED FROM [facility] PER WHEEL CHAIR. ALERT AND VERBALLY RESPONSIVE. REQUESTED AND RECEIVED A CUP OF ICE WATER. IN BED WITH CALL LIGHT AT REACH. INSTRUCTED TO CALL FOR ASSISTANCE NEEDED.
--- NOTE | 2018-12-07 07:09 | NUR ---
Gave report to oncoming nurse. call light within reach. patient asleep in bed.
--- NOTE | 2018-12-07 07:14 | Progress Note ---
DATE: SUBJECTIVE: The patient is a 78-year-old male, who comes in with dehydration, hyperkalemia, chronic liver disease, cirrhosis of the liver, and anemia. Currently, the patient is still feeling a little nauseous. No other complaints. No chest pain or shortness of breath. No nausea, vomiting, diarrhea and no constipation. LABORATORY VALUES: White count is down today at 9.6, however, his hemoglobin has dropped a point to 7.5 and hematocrit is 26.7. The patient has microcytic anemia. MCV is 74.9 and MCH 21.6. Chemistry shows sodium of 142, potassium 3.6, BUN of 5 and creatinine 0.75. Iron panel, transferrin is 419, percentage saturation of 5, and TIBC 587. OBJECTIVE: VITAL SIGNS: Temperature is 96.8, pulse of 66, respirations of 16, and blood pressure is 128/62. HEENT: Normocephalic and atraumatic. Pupils are reactive to light and accommodation. CVS: S1 and S2 normal. Regular rate and rhythm. ABDOMEN: Nontender and nondistended. EXTREMITIES: No clubbing. No cyanosis. Positive for trace edema. ASSESSMENT: 1. 78-year-old male with cryptogenic cirrhosis. 2. Dehydration. 3. Anemia. 4. Encephalopathy. 5. Debility. 6. Probable portal hypertension. 7. Diabetes mellitus. PLAN: 1. Discontinue the fluids today. 2. Advance his diet. 3. Check a CBC tomorrow for trend of hemoglobin. 4. Continue with iron infusion. 5. Continue with lactulose to ensure 2-3 bowel movements a day. The patient is progressing. No signs of bleeding noted. Hemoccult was negative. Further recommendation per clinical course. We will continue to monitor the patient and also we will follow up with GI. Possible discharge tomorrow depending on the trend of hemoglobin. MD JC Hameed/ANATOLIYL /[id number]
[2018-12-07] MEDS: INSULIN LISPRO 100 UNIT/1 ML 3ML VIAL SQ SCH ×4 (07:30→21:46)
[2018-12-07 08:01] LABS: EOSINOPHILS % (MANUAL) 9 % (0-7); LYMPHOCYTES % (MANUAL) 55 % (19-48); NEUTROPHILS % (MANUAL) 36 % (40-74)
[2018-12-07 08:02] LABS: PLATELET ESTIMATE MODERATELY DECREASED; RBC MORPHOLOGY COMMENT NORMAL
[2018-12-07 08:13] LABS: ALANINE AMINOTRANSFERASE 17 IU/L (0-55); ALBUMIN 2.9 g/dL (3.5-5.0); ALBUMIN/GLOBULIN RATIO 1.2 (0.8-2.0); ALKALINE PHOSPHATASE 80 IU/L (40-150); ANION GAP 11.6 mmol/L (8-16); BLOOD UREA NITROGEN 5 mg/dL (7-26); BUN/CREATININE RATIO 6 (6-25); CALCIUM 8.5 mg/dL (8.4-10.2); CARBON DIOXIDE 25 mmol/L (22-29); CHLORIDE 108 mmol/L (98-107); CREATININE, SERUM 0.78 mg/dL (0.72-1.25); EST GLOMERULAR FILTRATION RATE > 60 ML/MIN (60-); GLUCOSE 100 mg/dL (74-118); POTASSIUM 3.6 mmol/L (3.5-5.1); SODIUM 141 mmol/L (136-145)
[2018-12-07] MEDS: IRON SUCROSE 100 MG in SODIUM CHLORIDE 0.9% 100 ML 100 ML IV SCH (09:48)
[2018-12-07] MEDS: CYANOCOBALAMIN 1,000 MCG TAB PO SCH (09:48)
[2018-12-07] MEDS: VENLAFAXINE HCL 75 MG TAB PO SCH (09:48)
[2018-12-07] MEDS: METFORMIN HCL 500 MG TAB PO SCH ×2 (09:48→17:36)
[2018-12-08 00:18] VITALS: BP 151/69
--- NOTE | 2018-12-08 01:09 | Progress Note ---
DATE: 12/07/2018 SUBJECTIVE: The patient is much coherent, tolerating oral diet. Regular bowel movement. Denies any abdominal pain. REVIEW OF SYSTEMS: GENERAL: No fever or chills. CVS: No chest pain or palpitation. RESPIRATORY: No cough or expectoration. MEDICATIONS: Reviewed as per JUN. OBJECTIVE: VITAL SIGNS: Temperature 98, pulse 54, respirations 17, blood pressure 129/56, oxygen saturation 97% on room air. GENERAL: Not in any acute distress. HEENT: Oral mucosa is moist. Anicteric sclerae. ABDOMEN: Soft, nondistended. No palpable mass or hernia. No appreciable shifting dullness. Bowel sounds present. LABORATORY DATA: Sodium 141, potassium 3.6, chloride 108, bicarb 25, BUN 5 and creatinine 0.78. Liver enzymes showed AST 27, ALT 17, alkaline phosphatase 80, and total bilirubin 0.6. WBC 9.6, hemoglobin 7.5, down from 8.9, hematocrit 26.0, MCV 74.9, and platelet count 188. Stool occult blood negative. CT of the abdomen and pelvis on 12/05/2018 with IV contrast showed a cirrhotic morphology of the liver, underlying portal hypertension, circumferential urinary bladder wall thickening. IMPRESSION: Microcytic anemia, stool occult blood is negative. Cryptogenic liver cirrhosis. The patient's hemoglobin is relatively stable. No gross GI bleeding. Stool occult is heme negative. We will continue testing stool for occult blood. Dr. Mccall is his library services assistant. Once patient discharged then, he can follow with Dr. Mccall. The patient is having regular BM without any lactulose. Consider lactulose if patient develops any constipation. Mika Conde MD SA/MODL /[id number]
[2018-12-08 05:03] VITALS: BP 133/63
[2018-12-08 05:29] LABS: BASOPHILS % 0.3 % (0.0-1.0); EOSINOPHILS # (AUTO) 1.6 (0.0-0.4); EOSINOPHILS % 14.2 % (0.0-6.0); HEMOGLOBIN 7.8 g/dL (14.0-18.0); LYMPHOCYTES % 44.9 % (18.0-39.1); MEAN CORPUSCULAR HEMOGLOBIN 21.7 pg (28-32); MEAN CORPUSCULAR HGB CONC 28.9 g/dL (31-35); MEAN CORPUSCULAR VOLUME 75.2 fL (81-99); MONOCYTES # (AUTO) 0.6 (0.2-0.8); MONOCYTES % 5.8 % (4.4-11.3); NEUTROPHILS # (AUTO) 3.8 (2.1-6.9); PLATELET COUNT 183 x10e3/uL (140-360); RED BLOOD COUNT 3.59 x10e6/uL (4.3-5.7); RED CELL DISTRIBUTION WIDTH 19.3 % (11.7-14.4)
--- NOTE | 2018-12-08 07:17 | NUR ---
PATIENT IN BED RESTING WITH EYES CLOSED, NO RESPIRATORY DISTRESS OBSERVED. BED IN LOWER POSITION AND LOCKED. CALL LIGHT AT REACH.
[2018-12-08] MEDS: INSULIN LISPRO 100 UNIT/1 ML 3ML VIAL SQ SCH (07:30)
[2018-12-08 07:35] VITALS: BP 143/68
[2018-12-08 07:47] LABS: EOSINOPHILS % (MANUAL) 10 % (0-7); LYMPHOCYTES % (MANUAL) 34 % (19-48); MONOCYTES % (MANUAL) 10 % (3.4-9.0); NEUTROPHILS % (MANUAL) 46 % (40-74)
[2018-12-08 07:51] LABS: ANISOCYTOSIS SLIGHT; MICROCYTOSIS SLIGHT; PLATELET ESTIMATE ADEQUATE; PLATELET MORPHOLOGY COMMENT NORMAL; RBC MORPHOLOGY COMMENT NORMAL
[2018-12-08 08:11] VITALS: BP 143/68
--- NOTE | 2018-12-08 08:41 | Operative Report ---
progress note Joao Hickman MD SUBJECTIVE: This patient comes in with acute mental status changes, dehydration, and anemia. The patient has been seen by Dr. Mika Conde, partner of Dr. Mccall. Endoscopy has been refrained from the patient, coags were negative. The patient was found to have iron deficiency anemia. Venofer has been given to the patient and the patient is feeling better. Discussed with the patient in detail about the need for having 3-4 soft bowel movements a day to decrease the ammonia level. Currently asymptomatic. No chest pain. No shortness of breath. Still wobbly on his feet secondary to diabetic neuropathy. OBJECTIVE: VITAL SIGNS: Temperature is 98.2, pulse of 70, respirations of 18, blood pressure is 133/63, pulse oximetry of 98% and he is on room air. HEENT: Normocephalic, atraumatic. Pupils are reactive to light and accommodation. CVS: S1, S2 normal. Regular rate and rhythm. ABDOMEN: Soft, protuberant. No ascites. EXTREMITIES: No clubbing, no cyanosis. Trace edema. LABORATORY VALUES: The patient's white count is 11,000, hemoglobin of 7.8, hematocrit of 37, platelet count is 183, neutrophil count of 34. Chemistry show a sodium of 141, potassium of 3.6, CO2 of 25, BUN of 5, creatinine 0.78, glucose is 196, calcium 8.5. ALT and AST within normal limits. The patient's iron was 28. The patient's CT scan shows hepatic cirrhosis with portal hypertension and circumferential urinary bladder wall thickening and cholecystitis. ASSESSMENT: A 78-year-old gentleman with: 1. Cryptogenic cirrhosis. 2. Portal hypertension. 3. Dehydration. 4. Iron deficiency anemia. 5. Encephalopathy. 6. Debility. 7. Diabetes mellitus. 8. Portal hypertension. PLAN: Fluids have been discontinued. Diet has been advanced. Again, the patient has been asked to use his lactulose to have 2-3 bowel movements a day, soft. bowel movements discharged on iron nine tablets. For further information, look in the chart. The patient can be discharged today. The patient has no signs of bleeding and will be followed up by Dr. Mccall as an outpatient for possible endoscopy. MD JC Hameed/MODL /[id number] MTDD
--- NOTE | 2018-12-08 08:49 | NUR ---
CHANGED TO OBSERVATION ORDERED AND DISCUSSED WITH HIS DAUGHTER ALFRED JACKSON, AND GALDINO LETTER. VERBAL UNDERSTANDING OBTAINED. PT DISCHARGING HOME TODAY.
[2018-12-08] MEDS: CYANOCOBALAMIN 1,000 MCG TAB PO SCH (09:03)
[2018-12-08] MEDS: VENLAFAXINE HCL 75 MG TAB PO SCH (09:03)
[2018-12-08] MEDS: METFORMIN HCL 500 MG TAB PO SCH (09:03)
[2018-12-08] MEDS: IRON SUCROSE 100 MG in SODIUM CHLORIDE 0.9% 100 ML 100 ML IV SCH (10:00)
--- NOTE | 2018-12-08 11:14 | NUR ---
PATIENT HAS A DISCHARGE ORDER, AWAITING FOR HIS RIDE. IN BED WITH CALL LIGHT AT REACH. INSTRUCTED TO CALL FOR ASSISTANCE NEEDED.
[2018-12-08 12:13] VITALS: BP 138/67
--- NOTE | 2018-12-08 12:25 | NUR ---
PATIENT DISCHARGED HOME. DISCHARGE INSTRUCTIONS AND FOLLOW UP GIVEN TO PATIENT AND DAUGHTER, THEY VERBALIZED UNDERSTANDING. IV TO RIGHT FOREARM REMOVED WITH TIP INTACT. ALL PERSONAL ITEMS TAKEN WITH PATIENT. LEFT UNIT PER WHEEL CHAIR TO FRONT LOBBY IN STABLE CONDITION.
== END 2018-12-08 12:20 | disposition home or self-care (01) ==
LOC: IMCU 16:32 → OBSVTOIN 12-07 12:57 → INTOOBSV 12-07 12:57 → MED/SURG2 12-07 16:01
PROVIDERS: ADMIT Family Medicine; ATTEND Family Medicine
DX: K74.69 Other cirrhosis of liver (principal); E86.0 Dehydration; D50.9 Iron deficiency anemia, unspecified; K72.90 Hepatic failure, unspecified without coma; E11.9 Type 2 diabetes mellitus without complications; I10 Essential (primary) hypertension; E78.5 Hyperlipidemia, unspecified; F32.9 Major depressive disorder, single episode, unspecified; Z83.3 Family history of diabetes mellitus; Z82.49 Family history of ischemic heart disease and other diseases of the circulatory system; Z79.4 Long term (current) use of insulin; R16.1 Splenomegaly, not elsewhere classified; K76.6 Portal hypertension; R53.81 Other malaise
CPT/HCPCS: 36415 ×3; 74177; 80053 ×2; 81001; 82140 ×2; 82270; 82948 ×2; 83540; 84466; 85025 ×3; 87086; G0378 ×4; J1756 ×3; Q9967

== ENCOUNTER 2018-12-19 08:17 | Inpatient (IN) | payer MEDICARE ==
[~2018-12-19] VITALS: Ht 177.8 cm; Wt 81.9 kg
[~2018-12-19 08:17] MED LIST changes: +HUMALOG100 UNIT/1; +OZEMPIC SQ; +VITAMIN B-121000 MCG PO; +ZOFRAN4 MG PO
--- OUTSIDE RECORDS SUMMARY | 2018-12-19 08:20 | XMS REPORT | Continuity of Care Document ---
Author Author [email or web address] [employer] Address Unknown Phone Unavailable Care Team Providers Care Plug Stitcher Name Role Phone [facility] Unavailable Unavailable Problems Problem Status Onset Date Classification Date Reported Comments Source DX: ULCER LT 1ST Active 09/07/2018 [facility] Medications No Data Provided for This Section [...] likely relating to chronic denervation/neuropathic change. SL: [id number] 09/21/2018 [facility] Consultation Notes No Data Provided for This Section Discharge Summaries No Data Provided for This Section History and Physicals No Data Provided for This Section Vital Signs No Data Provided for This Section Encounters Location Location Details Encounter Type Encounter Number Reason For Visit Attending Provider ADM Date DC Date Status Source [facility] Out[facility] [id number] Etienne Emerson 09/21/2018 09/22/2018 [facility] Procedures No Data Provided for This Section Assessment and Plan No Data Provided for This Section Plan of Care No Data Provided for This Section Social History Social History Date Source No data available for this section 09/22/2018 [facility] Family History No Data Provided for This Section Advance Directives No Data Provided for This Section Functional Status No Data Provided for This Section
[2018-12-19] MEDS ORDERED: SODIUM CHLORIDE 0.9% 1000ML 1,000 ML IV STA ×3 (08:45→09:53)
[2018-12-19] MEDS ORDERED: SODIUM CHLORIDE 0.9% 1000ML 1,000 ML IV SCH (08:48)
[2018-12-19 08:58] LABS: BASOPHILS # (AUTO) 0.2 (0.0-0.1); BASOPHILS % 0.6 % (0.0-1.0); EOSINOPHILS # (AUTO) 12.6 (0.0-0.4); HEMATOCRIT 41.5 % (38.2-49.6); HEMOGLOBIN 12.7 g/dL (14.0-18.0); LYMPHOCYTES # (AUTO) 9.6 (1.0-3.2); LYMPHOCYTES % 31.1 % (18.0-39.1); MEAN CORPUSCULAR HEMOGLOBIN 23.6 pg (28-32); MEAN CORPUSCULAR HGB CONC 30.6 g/dL (31-35); MEAN CORPUSCULAR VOLUME 77.1 fL (81-99); MONOCYTES # (AUTO) 1.1 (0.2-0.8); MONOCYTES % 3.6 % (4.4-11.3); NEUTROPHILS # (AUTO) 7.1 (2.1-6.9); NEUTROPHILS % 23.3 % (38.7-80.0); PLATELET COUNT 267 x10e3/uL (140-360); RED BLOOD COUNT 5.38 x10e6/uL (4.3-5.7); RED CELL DISTRIBUTION WIDTH 25.2 % (11.7-14.4)
[2018-12-19] MEDS ORDERED: MORPHINE SULFATE 2 MG/ML SYR 1ML IV PRN (09:00)
[2018-12-19] MEDS ORDERED: ONDANSETRON HCL INJ 2MG/ML 2ML 2 MG/ML VIAL IV PRN (09:00)
[2018-12-19 09:01] LABS: BILIRUBIN,URINE NEGATIVE (NEGATIVE); CLARITY,URINE SL CLOUDY (CLEAR); COLOR,URINE ORANGE (YELLOW); KETONES,URINE 1+ (NEGATIVE); LEUKOCYTE ESTERASE ,URINE NEGATIVE (NEGATIVE); NITRITE,URINE NEGATIVE (NEGATIVE); PROTEIN,URINE DIPSTICK 1+ (NEGATIVE); URINE UROBILINOGEN 0.2 mg/dL (0.2 - 1)
[2018-12-19 09:06] LABS: INR 1.13
[2018-12-19] MEDS: PANTOPRAZOLE 40 MG 10ML VIAL IV SCH (09:06)
[2018-12-19 09:07] LABS: PARTIAL THROMBOPLASTIN TIME 37.2 seconds (23.8-35.5)
--- NOTE | 2018-12-19 09:14 | Diagnostic Imaging Report ---
EXAM: CHEST SINGLE (PORTABLE) DATE: 12/19/2018 8:45 AM INDICATION: Diarrhea, vomiting COMPARISON: None FINDINGS: The trachea is midline. The lungs are symmetrically expanded without evidence for focal consolidation, pneumothorax, or significant pleural effusion. The cardiomediastinal silhouette and pulmonary vasculature are within normal limits. No acute osseous abnormality is identified. IMPRESSION: No acute cardiopulmonary process identified. Signed by: Dr. Rodolfo Hodge MD on 12/19/2018 9:10 AM
[2018-12-19 09:17] LABS: ALBUMIN 3.6 g/dL (3.5-5.0); ANION GAP 17.7 mmol/L (8-16); CALCIUM 10.1 mg/dL (8.4-10.2); CREATININE, SERUM 1.3 mg/dL (0.72-1.25); POTASSIUM 3.7 mmol/L (3.5-5.1)
[2018-12-19] MEDS ORDERED: ONDANSETRON HCL INJ 2MG/ML 2ML 2 MG/ML VIAL IV ONE (09:30)
[2018-12-19] MEDS ORDERED: PANTOPRAZOLE 40 MG 10ML VIAL IV ONE (09:30)
--- OUTSIDE RECORDS SUMMARY | 2018-12-19 09:53 | XMS REPORT | Continuity of Care Document ---
Author Author [facility] [employer] Address Unknown Phone Unavailable Care Team Providers Care Padding Machine Operator Name Role Phone [facility] Unavailable Unavailable Problems Problem Status Onset Date Classification Date Reported Comments Source DX: ULCER LT 1ST Active 09/07/2018 [facility] Medications No Data Provided for This Section [...] likely relating to chronic denervation/neuropathic change. SL: [id number] 09/21/2018 [facility] Consultation Notes No Data Provided for This Section Discharge Summaries No Data Provided for This Section History and Physicals No Data Provided for This Section Vital Signs No Data Provided for This Section Encounters Location Location Details Encounter Type Encounter Number Reason For Visit Attending Provider ADM Date DC Date Status Source [facility] [id number] Etienne Emerson 09/21/2018 09/22/2018 [facility] Procedures No Data Provided for This Section Assessment and Plan No Data Provided for This Section Plan of Care No Data Provided for This Section Social History Social History Date Source No data available for this section 09/22/2018 [facility] Family History No Data Provided for This Section Advance Directives No Data Provided for This Section Functional Status No Data Provided for This Section
[2018-12-19 09:59] LABS: BACTERIA,URINE MODERATE /HPF; EPITHELIAL CELLS,URINE MODERATE /LPF; MUCUS,URINE MANY (RARE); RBC,URINE 0-5 /HPF (0-5)
[2018-12-19] MEDS ORDERED: METRONIDAZOLE 500MG/NS 100ML 100 ML IV ONE (10:30)
[2018-12-19] MEDS ORDERED: LEVOFLOXACIN 500MG/D5W 100ML 100 ML IV ONE (10:30)
[2018-12-19 11:07] LABS: MAGNESIUM 1.7 MG/DL (1.3-2.1)
[2018-12-19 11:13] LABS: CREATINE KINASE MB 1.3 ng/mL (0-5.0)
[2018-12-19 11:38] LABS: EOSINOPHILS % (MANUAL) 26 % (0-7); LYMPHOCYTES % (MANUAL) 26 % (19-48); MONOCYTES % (MANUAL) 1 % (3.4-9.0); NEUTROPHILS % (MANUAL) 47 % (40-74); PLATELET ESTIMATE ADEQUATE; PLATELET MORPHOLOGY COMMENT NORMAL; RBC MORPHOLOGY COMMENT NORMAL
--- NOTE | 2018-12-19 12:12 | Diagnostic Imaging Report ---
CT of the abdomen and pelvis, with contrast. History: Abdominal pain, nausea. Comparison: CT abdomen/pelvis with contrast from 12/05/2018. Technique: Multidetector CT scanning of the abdomen and pelvis was performed from the level of the lung bases to the inferior pubic rami after intravenous and oral administration of contrast. Coronal and sagittal multiplanar reformations were obtained. RADIATION DOSE: Total DLP: 442.21 mGy*cm Dose modulation, iterative reconstruction, and/or weight based adjustment of the mA/kV was utilized to reduce the radiation dose to as low as reasonably achievable. FINDINGS: The visualized lungs are remarkable for bibasilar atelectasis. The imaged portion of the heart demonstrates no significant abnormalities. The liver is normal in size and attenuation without evidence for focal abnormality. The gallbladder is unremarkable. There is no biliary ductal dilatation. The portal venous system, SMV, and splenic vein are patent. Again noted are esophageal varices, similar to the prior examination. The stomach, pancreas, and bilateral adrenal glands are unremarkable. The spleen appears mildly enlarged, similar to the prior examination. The kidneys are normal in size and location concentrate contrast material properly. There is no evidence for hydronephrosis. The ureters are normal in caliber. The urinary bladder demonstrates no significant abnormalities. The prostate is unremarkable. The abdominal aorta is normal in caliber with atherosclerotic calcifications within course and branch vessels. The IVC is unremarkable. Please note evaluation the bowel is limited without the use of enteric contrast material. The visualized small and large bowel demonstrate no evidence of obstruction or inflammation. The appendix is visualized and appears unremarkable. There is no ascites or intraperitoneal free air. No abnormally enlarged lymph nodes are identified within the abdomen or pelvis. The osseous structures demonstrate stable degenerative changes without evidence for acute fracture or destructive process. The extraperitoneal soft tissues are unremarkable. IMPRESSION: No acute abdominopelvic process or significant interval change identified from 12/05/2018. Again identified are esophageal varices and mild splenomegaly which can be seen in the setting of portal hypertension/hepatic dysfunction. Signed by: Dr. Rodolfo Hodge MD on 12/19/2018 12:08 PM
[2018-12-19 13:52] VITALS: BP 127/64
--- NOTE | 2018-12-19 14:02 | NUR ---
Received patient via stretcher from ER. AAOx3 to time, person, place. Respirations even and unlabored. NS 125ml/hr via left AC IV. Tele #[id number]. Oriented patient and daughter to room. Instructed patient to use call light for assistance. Side rails upx2, call light within reach, bed alarm on.
[2018-12-19] MEDS ORDERED: LACTULOSE20 GM/30 M PO (14:17)
[2018-12-19 14:19] VITALS: BP 127/64
[2018-12-19] MEDS ORDERED: IOPAMIDOL 370 MG/ML 200 ML INFUS..BTL INJ ONE (14:23)
[2018-12-19] MEDS ORDERED: SODIUM CHLORIDE 0.9% 50ML 50 ML ONE (14:23)
[2018-12-19 14:27] VITALS: BP 127/64
--- NOTE | 2018-12-19 14:56 | NUR ---
aware of WBC 30.71. See orders. States "I will review medications when I see patient"
[2018-12-19 16:00] VITALS: BP 138/62
[2018-12-19] MEDS: METRONIDAZOLE 500MG/NS 100ML 100 ML IV SCH ×3 (16:00→23:00)
[2018-12-19 18:14] LABS: BASOPHILS # (AUTO) 0.1 (0.0-0.1); BASOPHILS % 0.5 % (0.0-1.0); EOSINOPHILS # (AUTO) 8.7 (0.0-0.4); EOSINOPHILS % 47.4 % (0.0-6.0); HEMATOCRIT 32.2 % (38.2-49.6); HEMOGLOBIN 9.7 g/dL (14.0-18.0); LYMPHOCYTES % 27.6 % (18.0-39.1); MEAN CORPUSCULAR HEMOGLOBIN 23.5 pg (28-32); MEAN CORPUSCULAR HGB CONC 30.1 g/dL (31-35); MONOCYTES # (AUTO) 0.7 (0.2-0.8); MONOCYTES % 3.8 % (4.4-11.3); NEUTROPHILS # (AUTO) 3.7 (2.1-6.9); NEUTROPHILS % 20.5 % (38.7-80.0); PLATELET COUNT 156 x10e3/uL (140-360); RED BLOOD COUNT 4.13 x10e6/uL (4.3-5.7); RED CELL DISTRIBUTION WIDTH 24.7 % (11.7-14.4)
--- NOTE | 2018-12-19 19:00 | NUR ---
received report from day nurse. patient is resting comfortably in bed. bed is in lowest position and call lomeli is within reach. will continue to monitor patient.
--- NOTE | 2018-12-19 19:10 | NUR ---
Report given to oncoming nurse of patient's status. Resting in bed. AAOX3 to time, person, place. Respirations even and unlabored. Side rails upx2, call light within reach, bed alarm on.
[2018-12-19 19:41] LABS: BAND NEUTROPHILS % (MANUAL) 1 %; EOSINOPHILS % (MANUAL) 51 % (0-7); LYMPHOCYTES % (MANUAL) 24 % (19-48); MONOCYTES % (MANUAL) 1 % (3.4-9.0); NEUTROPHILS % (MANUAL) 18 % (40-74)
[2018-12-19 19:42] LABS: ANISOCYTOSIS MODERATE; HYPOCHROMASIA SLIG; PLATELET ESTIMATE ADEQUATE; PLATELET MORPHOLOGY COMMENT NORMAL; POIKILOCYTOSIS SLIGHT; RBC MORPHOLOGY COMMENT ABNORMAL
[2018-12-19] MEDS ORDERED: DEXTROSE 50% SYRINGE 50 ML IV PRN (19:45)
[2018-12-19 20:00] VITALS: BP 127/66
[2018-12-19 21:03] VITALS: BP 127/66
[2018-12-19] MEDS: INSULIN LISPRO 100 UNIT/1 ML 3ML VIAL SQ SCH (21:20)
[2018-12-20] VITALS (8 sets, daily range): BP systolic 125–153; BP diastolic 63–72
--- NOTE | 2018-12-20 02:07 | History and Physical ---
The patient is a 78-year-old male, who comes in with symptoms of nausea, vomiting, and also diarrhea. HISTORY OF PRESENT ILLNESS: Mr. Harpreet Joseph with a history of cirrhosis of the liver, history of anemia, history of depression, and diabetes mellitus, was in his usual state of health until the patient had some seafood on Monday and the patient had a lot of shellfish and felt nauseous, felt that he had an abdominal pain and also had diarrhea and yesterday, the patient was feeling some better and did eat some tuna fish at [employer] and after this, the patient started to have copious amount of diarrhea and also nausea. The patient came into the emergency room, was found to be septic, and also had signs of acute dehydration, and admitted for the same. PAST MEDICAL HISTORY: History of diabetes mellitus, history of anemia, history of depression, history of cirrhosis, history of hepatic encephalopathy, and history of depression. MEDICINES: He takes at home are cyanocobalamin 1000 mcg daily, insulin lispro daily, lactulose 20 mg per 30 mL b.i.d. p.r.n., metformin 500 mg daily, Zofran 4 mg daily and also venlafaxine 75 mg daily. The patient also takes Ozempic 1 unit subcu 7 days. PAST SURGICAL HISTORY: Noncontributory. The patient had an EGD with Dr. Mccall last week. The patient also had cataract surgeries. ALLERGIES: THE PATIENT IS ALLERGIC TO NO DRUG ALLERGIES NOTED. SOCIAL HISTORY: No EtOH, no IV drug abuse and no history of smoking either. REVIEW OF SYSTEMS: Negative for chest pain. No shortness of breath. Positive for nausea, vomiting, and diarrhea is noted. No constipation. No rectal bleeding. No hematochezia. No hematemesis. Positive for some mental status changes that have been ongoing for about one to two years. No diplopia. No blurry vision. No other neurological findings. Positive for sensory neuropathy, secondary to diabetes mellitus. PHYSICAL EXAMINATION: VITAL SIGNS: Temperature is 97.5, pulse 72, respirations of 14, blood pressure is 138/62, and pulse oximetry of 98%. HEENT: Normocephalic and atraumatic. No icterus present. CARDIOVASCULAR SYSTEM: S1 and S2 normal. Regular rate and rhythm. ABDOMEN: Slightly distended. EXTREMITIES: No clubbing. No cyanosis. Decreased vibratory sensation in lower extremities. LABORATORY VALUES: White count is 30,000 on arrival. Second set showed decrease in 18,000. No left shift present, was 23.3, lymphocyte count was 9.6 and repeat was 5.0. The patient's initial chemistry showed a sodium of 136, potassium of 3.7, BUN of 13, creatinine of 1.30 with a lactic acid of 34 with a calcium of 10.1, and bilirubin of 1.4. The patient's repeat lactic acid was 16.5. IMAGING STUDIES: Abdominal CT shows no acute abdominopelvic processes noted. Again, identified is esophageal varices and mild splenomegaly is seen for in the CT. Chest CT shows no acute cardiopulmonary process identified. ASSESSMENT: Here, 1. Gastroenteritis. 2. Sepsis. 3. Leukocytosis, possibly reactive. 4. Dehydration. 5. Cirrhosis of the liver. 6. Esophageal varices. 7. 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 8. Acute kidney injury. PLAN: Continue with hydration. The patient is on Zofran for nausea and vomiting. The patient is also currently on Flagyl and levofloxacin. Clostridium difficile stool has been sent to the lab already. We will monitor CBC and CMP. Further recommendation per clinical course. We will continue to monitor the patient. The patient is clinically stable at this time and further recommendation per clinical course. We will continue the patient on venlafaxine from his home. Otherwise, the patient is on insulin sliding scale. MD DONTRELL HameedJ/MODL /[id number]
--- NOTE | 2018-12-20 02:17 | Consultation ---
DATE OF CONSULTATION: 12/19/2018 HISTORY OF PRESENT ILLNESS: This is a 78-year-old known to me with history of cirrhosis, presented to the hospital because of abdominal pain, nausea, and vomiting. The patient also has some diarrhea apparently, but denies any bleeding along with this problem. His workup revealed that he had leukocytosis with WBC of 30,000 on admissions and mild anemia with hemoglobin of 12. This has dropped to 9.7 with hydration. His chemistry; lactic acid 134, bilirubin 1.4 with normal liver enzymes. He did have a CAT scan of the abdomen and pelvis, which shows esophageal varices, splenomegaly and a normal gallbladder. He has had an EGD recently, which only shows some gastritis. PAST MEDICAL PROBLEM: Significant for history of diabetes, history of anemia, history of depression, history of cirrhosis with encephalopathy. ALLERGIES: NONE. SOCIAL HISTORY: No alcohol. FAMILY HISTORY: Noncontributory. REVIEW OF SYSTEMS: At this point, denies any chest pain or shortness of breath. Denies any dysphagia or odynophagia. Denies any dysuria or hematuria, or any kind of syncopal episodes. CURRENT MEDICATIONS: Including Flagyl, Protonix, and Levaquin. PHYSICAL EXAMINATION: GENERAL: The patient is awake and alert, appears to be stable, in no acute distress at this point. VITAL SIGNS: Afebrile, currently with stable vital signs. HEAD, EYES, EARS, AND THROAT: Normocephalic and atraumatic. Sclerae are anicteric. NECK: Supple. HEART: Regular. ABDOMEN: Soft. There is distention at this point. Nontender at this point. EXTREMITIES: No clubbing or cyanosis. LABORATORY DATA: As of this morning, BUN 13, creatinine 1.3. Lactic acid 34,000. WBC of 30.71, this morning it is down to 18.28, hemoglobin 12.7 this morning down to 9.7 with hydration with MCV of 78, and platelet count was 267, down to 156. CAT scan of the abdomen and pelvis shows evidence of cirrhosis. No acute disease esophageal varices, splenomegaly. IMPRESSION: 1. Abdominal pain. The patient has some nausea, vomiting, and probably some diarrhea. Rule out possibility of acute gastroenteritis. 2. Cirrhosis with portal hypertension. 3. Leukocytosis. 4. Anemia probably mostly from hydration, at this point and antibiotic. Agree with obtaining stool study. Follow labs clinically. MD NONA Taipa/BART /[id number] cc: Joao Hickman MD
[2018-12-20 05:17] LABS: BASOPHILS # (AUTO) 0.1 (0.0-0.1); BASOPHILS % 0.5 % (0.0-1.0); EOSINOPHILS # (AUTO) 9.2 (0.0-0.4); EOSINOPHILS % 52.2 % (0.0-6.0); HEMATOCRIT 29.9 % (38.2-49.6); LYMPHOCYTES # (AUTO) 5.7 (1.0-3.2); LYMPHOCYTES % 32.2 % (18.0-39.1); MEAN CORPUSCULAR HEMOGLOBIN 23.6 pg (28-32); MEAN CORPUSCULAR HGB CONC 30.1 g/dL (31-35); MEAN CORPUSCULAR VOLUME 78.5 fL (81-99); MONOCYTES # (AUTO) 0.7 (0.2-0.8); NEUTROPHILS # (AUTO) 1.9 (2.1-6.9); PLATELET COUNT 146 x10e3/uL (140-360); RED BLOOD COUNT 3.81 x10e6/uL (4.3-5.7)
[2018-12-20] MEDS: METRONIDAZOLE 500MG/NS 100ML 100 ML IV SCH ×3 (05:24→17:01)
[2018-12-20 06:07] LABS: ALANINE AMINOTRANSFERASE 15 IU/L (0-55); ALBUMIN 2.8 g/dL (3.5-5.0); ALBUMIN/GLOBULIN RATIO 1.2 (0.8-2.0); ALKALINE PHOSPHATASE 82 IU/L (40-150); ANION GAP 12.8 mmol/L (8-16); BLOOD UREA NITROGEN 8 mg/dL (7-26); BUN/CREATININE RATIO 9 (6-25); CALCIUM 8.3 mg/dL (8.4-10.2); CARBON DIOXIDE 24 mmol/L (22-29); CHLORIDE 107 mmol/L (98-107); CREATININE, SERUM 0.87 mg/dL (0.72-1.25); EST GLOMERULAR FILTRATION RATE > 60 ML/MIN (60-); GLUCOSE 97 mg/dL (74-118); LIPASE 25 U/L (8-78); POTASSIUM 3.8 mmol/L (3.5-5.1); SODIUM 140 mmol/L (136-145)
--- NOTE | 2018-12-20 06:45 | NUR ---
report given to day nurse. patient is resting comfortably in bed. bed is in lowest position and call lomeli is within reach.
[2018-12-20] MEDS: INSULIN LISPRO 100 UNIT/1 ML 3ML VIAL SQ SCH ×4 (07:30→20:11)
[2018-12-20 07:59] LABS: CREATINE KINASE MB 0.6 ng/mL (0-5.0)
[2018-12-20] MEDS: PANTOPRAZOLE 40 MG 10ML VIAL IV SCH (08:11)
[2018-12-20] MEDS: VENLAFAXINE HCL 75 MG TAB PO SCH (08:11)
[2018-12-20 08:36] LABS: EOSINOPHILS % (MANUAL) 37 % (0-7); LYMPHOCYTES % (MANUAL) 31 % (19-48); MONOCYTES % (MANUAL) 1 % (3.4-9.0); NEUTROPHILS % (MANUAL) 31 % (40-74)
[2018-12-20 08:37] LABS: ANISOCYTOSIS SLIGHT; ELLIPTOCYTE, RBC SLIGHT; OVALOCYTES FEW; PLATELET ESTIMATE ADEQUATE; PLATELET MORPHOLOGY COMMENT NORMAL; POIKILOCYTOSIS MODERATE; RBC MORPHOLOGY COMMENT ABNORMAL
[2018-12-20] MEDS: LEVOFLOXACIN 500MG/D5W 100ML 100 ML IV SCH (10:00)
--- NOTE | 2018-12-20 10:04 | Progress Note ---
DATE: SUBJECTIVE: This is a 78-year-old male, who comes in with acute gastroenteritis, sepsis, nausea, vomiting, and diarrhea. The patient is currently asymptomatic, wanting to eat. The patient has been on clear liquid diet and wants to advance his diet, feeling hungry. No chest pain. No shortness of breath. Diarrhea is limited, no nausea, no vomiting. OBJECTIVE: VITAL SIGNS: Temperature is 97.1, pulse of 64, blood pressure is 153/63, pulse oximetry of 95%. HEENT: Normocephalic, atraumatic. No jaundice present. CVS: S1, S2 normal. Regular rate and rhythm. ABDOMEN: Slightly distended. No abdominal tenderness present. EXTREMITIES: No clubbing, no cyanosis, no edema. LABORATORY VALUES: The patient's white count 17,000 with a hemoglobin of 9.0, hematocrit of 29.2, neutrophil count is 11, and platelets of 146. Chemistries show sodium of 140, potassium is 3.8, BUN of 8, creatinine 0.87. Glucoses have been running in the 170 to 190. Troponins have been negative and trended negative. Lipase is negative. MICROBIOLOGY: Urine culture and blood culture are pending. Urine culture; preliminary culture in progress with re-incubation required. ASSESSMENT: 1. Gastroenteritis. 2. Sepsis. 3. Leukocytosis. 4. Dehydration. 5. Cirrhosis of liver. 6. Esophageal varices. 7. Diabetes with neuropathy. 8. Acute kidney injury. PLAN: Continue with Flagyl and Levaquin. The patient seems to have responded to it. We will continue monitoring his white count for his leukocytosis and continue on his insulin sliding scale for diabetes mellitus and CV medications for his hypertension and hyperlipidemia. Further recommendations per clinical course. We will continue to monitor the patient along with Dr. Mccall, Gastroenterology. Joao Hickman MD ASJ/MODL /[id number]
--- NOTE | 2018-12-20 19:06 | NUR ---
Report given to oncoming nurse of patient's status. Resting in bed, side rails upx2, call light within reach , bed alarm on. No s/s of acute distress noted.
[2018-12-21] VITALS (8 sets, daily range): BP systolic 113–156; BP diastolic 51–64
[2018-12-21] MEDS: METRONIDAZOLE 500MG/NS 100ML 100 ML IV SCH ×4 (05:13→22:05)
[2018-12-21 05:39] LABS: BASOPHILS # (AUTO) 0.1 (0.0-0.1); BASOPHILS % 0.3 % (0.0-1.0); EOSINOPHILS # (AUTO) 9.3 (0.0-0.4); EOSINOPHILS % 57.6 % (0.0-6.0); HEMATOCRIT 30.5 % (38.2-49.6); HEMOGLOBIN 9.3 g/dL (14.0-18.0); LYMPHOCYTES # (AUTO) 4.3 (1.0-3.2); LYMPHOCYTES % 26.7 % (18.0-39.1); MEAN CORPUSCULAR HEMOGLOBIN 23.9 pg (28-32); MEAN CORPUSCULAR HGB CONC 30.5 g/dL (31-35); MEAN CORPUSCULAR VOLUME 78.4 fL (81-99); MONOCYTES # (AUTO) 0.7 (0.2-0.8); MONOCYTES % 4.1 % (4.4-11.3); NEUTROPHILS # (AUTO) 1.8 (2.1-6.9); NEUTROPHILS % 11.2 % (38.7-80.0); PLATELET COUNT 147 x10e3/uL (140-360); RED BLOOD COUNT 3.89 x10e6/uL (4.3-5.7); RED CELL DISTRIBUTION WIDTH 24.9 % (11.7-14.4)
[2018-12-21 06:01] LABS: ANION GAP 11.6 mmol/L (8-16); BLOOD UREA NITROGEN 8 mg/dL (7-26); BUN/CREATININE RATIO 9 (6-25); CALCIUM 8.8 mg/dL (8.4-10.2); CARBON DIOXIDE 23 mmol/L (22-29); CHLORIDE 107 mmol/L (98-107); CREATININE, SERUM 0.86 mg/dL (0.72-1.25); EST GLOMERULAR FILTRATION RATE > 60 ML/MIN (60-); GLUCOSE 134 mg/dL (74-118); POTASSIUM 3.6 mmol/L (3.5-5.1); SODIUM 138 mmol/L (136-145)
--- NOTE | 2018-12-21 06:49 | NUR ---
report given to day nurse. patient is resting comfortably in bed. bed is in lowest position and call light is within reach.
[2018-12-21] MEDS: INSULIN LISPRO 100 UNIT/1 ML 3ML VIAL SQ SCH ×4 (07:30→21:30)
[2018-12-21] MEDS: VENLAFAXINE HCL 75 MG TAB PO SCH (09:56)
[2018-12-21] MEDS: PANTOPRAZOLE 40 MG 10ML VIAL IV SCH (09:56)
[2018-12-21] MEDS: LEVOFLOXACIN 500MG/D5W 100ML 100 ML IV SCH (09:56)
--- NOTE | 2018-12-21 10:27 | Progress Note ---
DATE: SUBJECTIVE: The patient is a 78-year-old male, who comes in with gastroenteritis. The patient is tolerating GI soft diet. Consult with Dr. Miguel was done yesterday. No additional findings. OBJECTIVE: VITAL SIGNS: Temperature is 98, pulse of 72, respirations of 18, blood pressure is 142/62. HEENT: Normocephalic, atraumatic. Pupils are reactive to light and accommodation. Anicteric. CVS: S1, S2 normal. Regular rate and rhythm. ABDOMEN: Nontender, nondistended. EXTREMITIES: No clubbing, no cyanosis, no edema. LABORATORY DATA: [place] [address], hemoglobin of 9.3, hematocrit of 30.5, platelet count is 147, neutrophil count 11.2. Chemistries all within normal limits. Coags; PT 15, INR is 1.13. ASSESSMENT: 1. Gastroenteritis. 2. Sepsis. 3. Leukocytosis. 4. Dehydration. 5. Cirrhosis of the liver and acute kidney injury, which is resolved. PLAN: Continue with Levaquin and Flagyl. The patient seems to be responding well to antibiotics. Leukocytosis is improving. Continue medications. Continue CV medications. The patient has urged to walk today. We will take him off the telemetry monitoring. Further recommendations per clinical course. Plan to discharge soon. MD JC Hameed/MODL /[id number]
--- NOTE | 2018-12-21 11:27 | NUR ---
EDUCATED ABOUT IMM, SIGNED, FILED IN CHART, WITH COPY LEFT WITH FAMILY AT BEDSIDE.
--- NOTE | 2018-12-21 13:07 | NUR ---
Nutrition Screen Note RD Recommendation for Physician: -Rec adding ADA 1800 to GI soft diet Plan of Care: RD following, monitoring for tolerance and adequacy Nutrition reason for involvement: Nutrition risk trigger MST Primary Diagnose(s): gastroenteritis, sepsis, leukocytosis PMH: DM, anemia, depression, cirrhosis, hepatic encephalopathy Ht: 70in Wt: 179lb BMI: 25.7kg/m2 IBW: 166lb +/- 10% RD Assessment: (12/21) Chart reviewed. Labs and meds reviewed. 78yo M, who was admitted for abdominal pain with nausea, diarrhea and vomiting. Visited pt in the room. Pt reported good appetite. PCT recorded average of 100% meal intake. Pt denied any nausea or vomiting today. LBM 12/21. No chewing or swallowing difficulty reported. Pt has had some intentional weight loss within the last 3 months through lifestyle changes; pt was happy with weight loss. No concern at this time. Current Diet: GI soft diet Malnutrition Evaluation (12/21/2018) The patient does not meet criteria for a specified degree of malnutrition at this time. Will re-evaluate at follow-up as appropriate. Diet Education Needs Assessment: Diet education not indicated. Nutrition Care Level: low Signed: Violet Grajeda, MS, RD, LD
[2018-12-22 00:01] VITALS: BP 148/64
[2018-12-22 04:20] VITALS: BP 130/47
[2018-12-22] MEDS: METRONIDAZOLE 500MG/NS 100ML 100 ML IV SCH (05:09)
[2018-12-22 05:56] LABS: BASOPHILS # (AUTO) 0.1 (0.0-0.1); BASOPHILS % 0.4 % (0.0-1.0); EOSINOPHILS # (AUTO) 6.5 (0.0-0.4); HEMATOCRIT 28.9 % (38.2-49.6); HEMOGLOBIN 8.8 g/dL (14.0-18.0); LYMPHOCYTES # (AUTO) 3.1 (1.0-3.2); MEAN CORPUSCULAR HGB CONC 30.4 g/dL (31-35); MEAN CORPUSCULAR VOLUME 78.7 fL (81-99); MONOCYTES # (AUTO) 0.5 (0.2-0.8); MONOCYTES % 4.2 % (4.4-11.3); NEUTROPHILS # (AUTO) 1.3 (2.1-6.9); NEUTROPHILS % 11.3 % (38.7-80.0); PLATELET COUNT 142 x10e3/uL (140-360); RED BLOOD COUNT 3.67 x10e6/uL (4.3-5.7); RED CELL DISTRIBUTION WIDTH 25.1 % (11.7-14.4)
[2018-12-22] MEDS ORDERED: CIPRO500 MG PO (07:10)
[2018-12-22] MEDS ORDERED: FLAGYL250 MG PO (07:11)
[2018-12-22] MEDS ORDERED: ZOFRAN8 MG PO (07:12)
[2018-12-22] MEDS ORDERED: LOMOTIL TABLET1 EACH PO (07:13)
[2018-12-22 07:46] VITALS: BP 142/63
[2018-12-22 08:05] VITALS: BP 142/63
[2018-12-22 08:42] LABS: EOSINOPHILS % (MANUAL) 56 % (0-7); LYMPHOCYTES % (MANUAL) 28 % (19-48); MONOCYTES % (MANUAL) 4 % (3.4-9.0); NEUTROPHILS % (MANUAL) 12 % (40-74); PLATELET ESTIMATE MODERATELY DECREASED; PLATELET MORPHOLOGY COMMENT FEW GIANT
[2018-12-22 08:43] LABS: RBC MORPHOLOGY COMMENT NORMAL
--- NOTE | 2018-12-22 09:10 | Progress Note ---
DATE: SUBJECTIVE: 78-year-old comes in with gastroenteritis with history of cirrhosis, doing well now. No complaints of chest pain. No shortness of breath. No nausea. No vomiting. No diarrhea. The patient is coherent, has been eating a full meal. OBJECTIVE: VITAL SIGNS: Temperature is 97.9, pulse of 66, respirations of 16, and blood pressure is 130/47. HEENT: Normocephalic and atraumatic. Pupils are reactive to light and accommodation. CVS: S1 and S2 normal. Regular rate and rhythm. ABDOMEN: Nontender and nondistended. EXTREMITIES: No clubbing, no cyanosis, no edema. LABORATORY VALUES: White count is down to 11,000, hemoglobin of 8.8, hematocrit 28.7, RDW 25.1. Chemistries; blood sugars are running within normal range. BUN and creatinine is 8 and 0.86. Coags are normal. Microbiology; blood cultures, no growth; urine cultures, mixed lex with contamination. ASSESSMENT: 78-year-old male with. 1. Gastroenteritis. 2. Sepsis. 3. Leukocytosis with leukemoid reaction. 4. Dehydration. 5. Cirrhosis of the liver. 6. Acute kidney injury. 7. Diabetes with neuropathy. PLAN: Continue with medication. The patient can be discharged home on p.o. Flagyl and Levaquin or Cipro. We will continue to monitor the patient as an outpatient and monitor his leukocytosis and leukemoid reaction as an outpatient. Continue with medicines for diabetes mellitus and CV medications for hypertension. Further recommendation per clinical course as an outpatient. We will follow the patient as an outpatient. Follow up with Dr. Mccall, Gastroenterology and Dr. Miguel Hematology has been advised. MD DONTRELL HameedJ/MODL /[id number]
== END 2018-12-22 08:32 | disposition home or self-care (01) | DRG 872 ==
LOC: ER 08:17 → ERHOLD 08:48 → MED/SURG2 14:33
PROVIDERS: ADMIT Family Medicine; ATTEND Family Medicine
DX: A41.9 Sepsis, unspecified organism (principal); K76.6 Portal hypertension; E87.2 Acidosis; I85.00 Esophageal varices without bleeding; N17.9 Acute kidney failure, unspecified; D64.9 Anemia, unspecified; E11.9 Type 2 diabetes mellitus without complications; F32.9 Major depressive disorder, single episode, unspecified; D72.829 Elevated white blood cell count, unspecified; R16.1 Splenomegaly, not elsewhere classified; E11.40 Type 2 diabetes mellitus with diabetic neuropathy, unspecified; K52.9 Noninfective gastroenteritis and colitis, unspecified; E78.5 Hyperlipidemia, unspecified; E86.0 Dehydration; D72.823 Leukemoid reaction; K70.30 Alcoholic cirrhosis of liver without ascites; D73.2 Chronic congestive splenomegaly
CPT/HCPCS: 36415; 71045; 74177; 80048; 80053; 81001; 82140; 82550; 82553; 82948; 83605; 83690; 83735; 83880; 84484; 85025; 85610; 85730; 86850; 86900; 87040; 87086; 87493; 93005; 96372; 99284; J1956; J2405; J7030; Q9967

== ENCOUNTER 2019-05-20 14:33 | Outpatient (RCR) | payer MEDICARE ==
[~2019-05-20 14:33] MED LIST changes: +ASPIR 8181 MG PO; +CIPRO500 MG PO; +CRESTOR10 MG PO; +FLAGYL250 MG PO; +LACTULOSE20 GM/30 M PO; +LOMOTIL TABLET1 EACH PO; +MULTI-VITAMIN1 EACH; +PLAVIX75 MG PO; +ZOFRAN8 MG PO
[2019-05-27] MEDS ORDERED: NOVOLOG100 UNITS1 SC (21:20)
== END 2019-06-15 ==
LOC: PT 14:33
PROVIDERS: ATTEND Family Medicine
DX: I63.341 Cerebral infarction due to thrombosis of right cerebellar artery (principal); M62.81 Muscle weakness (generalized); R26.2 Difficulty in walking, not elsewhere classified

== ENCOUNTER 2019-05-23 10:05 | Emergency (ER) | payer MEDICARE ==
[~2019-05-23] VITALS: Ht 177.8 cm; Wt 79.4 kg
[2019-05-23 11:03] LABS: BASOPHILS % 0.5 % (0.0-1.0); EOSINOPHILS # (AUTO) 0.4 (0.0-0.4); EOSINOPHILS % 6.2 % (0.0-6.0); LYMPHOCYTES # (AUTO) 3.5 (1.0-3.2); LYMPHOCYTES % 51.8 % (18.0-39.1); MEAN CORPUSCULAR HEMOGLOBIN 26.8 pg (28-32); MEAN CORPUSCULAR HGB CONC 29.9 g/dL (31-35); MEAN CORPUSCULAR VOLUME 89.7 fL (81-99); MONOCYTES # (AUTO) 0.4 (0.2-0.8); MONOCYTES % 5.7 % (4.4-11.3); NEUTROPHILS # (AUTO) 2.4 (2.1-6.9); NEUTROPHILS % 35.8 % (38.7-80.0); PLATELET COUNT 158 x10e3/uL (140-360); RED BLOOD COUNT 2.24 x10e6/uL (4.3-5.7); RED CELL DISTRIBUTION WIDTH 14.5 % (11.7-14.4)
[2019-05-23 11:07] LABS: HEMATOCRIT 20.1 % (38.2-49.6)
[2019-05-23 11:16] LABS: ALANINE AMINOTRANSFERASE 29 IU/L (0-55); ALBUMIN 3.2 g/dL (3.5-5.0); ALBUMIN/GLOBULIN RATIO 1.1 (0.8-2.0); ALKALINE PHOSPHATASE 116 IU/L (40-150); BLOOD UREA NITROGEN 11 mg/dL (7-26); BUN/CREATININE RATIO 12 (6-25); CALCIUM 8.6 mg/dL (8.4-10.2); CARBON DIOXIDE 21 mmol/L (22-29); CHLORIDE 105 mmol/L (98-107); CREATININE, SERUM 0.92 mg/dL (0.72-1.25); EST GLOMERULAR FILTRATION RATE > 60 ML/MIN (60-); GLUCOSE 202 mg/dL (74-118); SODIUM 137 mmol/L (136-145)
[2019-05-23 11:38] LABS: INR 1.04; PROTHROMBIN TIME 13.8 seconds (11.9-14.5)
[2019-05-23 11:39] LABS: PARTIAL THROMBOPLASTIN TIME 34.9 seconds (23.8-35.5)
[2019-05-23 13:38] LABS: EOSINOPHILS % (MANUAL) 4 % (0-7); LYMPHOCYTES % (MANUAL) 56 % (19-48); MONOCYTES % (MANUAL) 4 % (3.4-9.0); NEUTROPHILS % (MANUAL) 36 % (40-74)
[2019-05-23] MEDS ORDERED: SODIUM CHLORIDE 0.9% 250ML 250 ML ONE (13:47)
--- NOTE | 2019-05-23 13:52 | NUR ---
sodium chloride 250 mL administered with blood transfusion
[2019-05-23 15:12] VITALS: BP 116/54
--- NOTE | 2019-05-23 15:18 | NUR ---
protonix 40 mg iv ordered by tk nash administered by madhuri carrillo
[2019-05-23] MEDS ORDERED: PANTOPRAZOLE 40 MG 10ML VIAL ONE (15:20)
[2019-05-23 15:48] LABS: BASOPHILS % 0.5 % (0.0-1.0); EOSINOPHILS # (AUTO) 0.4 (0.0-0.4); EOSINOPHILS % 6.5 % (0.0-6.0); HEMATOCRIT 21.8 % (38.2-49.6); LYMPHOCYTES # (AUTO) 3.5 (1.0-3.2); LYMPHOCYTES % 53.9 % (18.0-39.1); MEAN CORPUSCULAR HEMOGLOBIN 27.8 pg (28-32); MEAN CORPUSCULAR HGB CONC 30.7 g/dL (31-35); MEAN CORPUSCULAR VOLUME 90.5 fL (81-99); MONOCYTES # (AUTO) 0.5 (0.2-0.8); MONOCYTES % 8.3 % (4.4-11.3); NEUTROPHILS % 30.6 % (38.7-80.0); PLATELET COUNT 135 x10e3/uL (140-360); RED BLOOD COUNT 2.41 x10e6/uL (4.3-5.7); RED CELL DISTRIBUTION WIDTH 14.3 % (11.7-14.4)
[2019-05-23 16:07] LABS: HEMOGLOBIN 6.7 g/dL (14.0-18.0)
== END 2019-05-23 16:23 | disposition home or self-care (01) ==
LOC: ER 10:05
DX: D64.9 Anemia, unspecified (principal); K92.1 Melena; E11.9 Type 2 diabetes mellitus without complications; I10 Essential (primary) hypertension; B18.2 Chronic viral hepatitis C; K72.90 Hepatic failure, unspecified without coma; K74.60 Unspecified cirrhosis of liver; Z79.4 Long term (current) use of insulin
CPT/HCPCS: 36415; 36430; 80053; 85025; 85610; 85730; 86850; 86900; 86920; 99283; C9113; J7050; P9016

== ENCOUNTER 2019-05-27 18:19 | Observation (INO) | payer MEDICARE ==
[~2019-05-27] VITALS: Ht 177.8 cm; Wt 81.4 kg
[2019-05-27] MEDS ORDERED: LABETALOL HCL 5 MG/ML 20ML VIAL IV ONE (18:51)
[2019-05-27] MEDS ORDERED: FUROSEMIDE INJ 10 MG/ML 2 ML VIAL IV PRN (19:30)
[2019-05-27] MEDS ORDERED: SODIUM CHLORIDE 0.9% 250ML 250 ML IV ONE (19:30)
[2019-05-27 20:00] VITALS: BP 150/61
--- NOTE | 2019-05-27 20:00 | NUR ---
NOTIFIED DR PONCE THAT PATIENT IS HERE AT THE HOSPITAL, ROOM 204. NEW ORDER RECEIVED
[2019-05-27 20:05] LABS: HEMATOCRIT 22.8 % (38.2-49.6); MEAN CORPUSCULAR HEMOGLOBIN 26.2 pg (28-32); MEAN CORPUSCULAR HGB CONC 29.8 g/dL (31-35); MEAN CORPUSCULAR VOLUME 87.7 fL (81-99); PLATELET COUNT 151 x10e3/uL (140-360); RED CELL DISTRIBUTION WIDTH 14.8 % (11.7-14.4)
[2019-05-27 20:08] LABS: HEMOGLOBIN 6.8 g/dL (14.0-18.0)
[2019-05-27 20:15] LABS: PROTHROMBIN TIME 13.8 seconds (11.9-14.5)
[2019-05-27 20:16] LABS: PARTIAL THROMBOPLASTIN TIME 33.7 seconds (23.8-35.5)
[2019-05-27 20:21] LABS: % IRON SATURATION 2 % (15-50); IRON 10 ug/dL (65-175); TOTAL IRON BINDING CAPACITY 568 ug/dL (261-478); TRANSFERRIN 406 mg/dL (174-364)
[2019-05-27] MEDS ORDERED: NOVOLOG100 UNITS1 SC (21:20)
[2019-05-27 21:33] LABS: LYMPHOCYTES % (MANUAL) 67 % (19-48); MONOCYTES % (MANUAL) 3 % (3.4-9.0); NEUTROPHILS % (MANUAL) 30 % (40-74)
[2019-05-27 21:34] VITALS: BP 150/61
[2019-05-27 21:34] LABS: HYPOCHROMASIA SLIGHT; PLATELET ESTIMATE ADEQUATE; PLATELET MORPHOLOGY COMMENT NORMAL; RBC MORPHOLOGY COMMENT NORMAL
[2019-05-27] MEDS ORDERED: SODIUM CHLORIDE 0.9% 250ML 250 ML ONE (22:42)
--- NOTE | 2019-05-27 22:45 | NUR ---
INITIATED TRANSFUSION 1ST UNIT OF BLOOD. VITAL SIGN STABLE. VERIFIED WITH 2RD NURSE. CONTINUE TO MONITOR CLOSELY
[2019-05-27 23:20] VITALS: BP 150/61
[2019-05-28] VITALS (8 sets, daily range): BP systolic 118–138; BP diastolic 55–69
--- NOTE | 2019-05-28 01:00 | NUR ---
INITIATED TRANSFUSION 2ND UNIT OF BLOOD. VITAL SIGN STABLE. VERIFIED WITH 2RD NURSE. CONTINUE TO MONITOR CLOSELY
--- NOTE | 2019-05-28 07:00 | NUR ---
BEDSIDE SHIFT REPORT RECEIVED FROM THE WHEEL LACER AND TRUER RN. EDUCATED PT ABOUT FALL PRECAUTIONS. CALL LIGHT WITH IN EASY REACH. INSTRUCTED PT TO USE CALL LIGHT FOR ALL THE NEEDS. PT VERBALIZED UNDERSTANDING. BED IS LOW AND LOCKED. SIDE RAILS X2. PT DENIES NEEDS AT THIS TIME.
[2019-05-28] MEDS: INSULIN LISPRO 100 UNIT/1 ML 3ML VIAL SQ SCH ×2 (08:00→17:00)
[2019-05-28] MEDS: VENLAFAXINE HCL 37.5 MG TAB PO SCH (08:11)
[2019-05-28] MEDS: METFORMIN HCL 500 MG TAB PO SCH ×2 (08:11→17:14)
[2019-05-28] MEDS ORDERED: VENLAFAXINE HCL 75 MG TAB PO SCH (09:00)
[2019-05-28] MEDS ORDERED: SIMVASTATIN 40 MG TAB PO SCH (09:00)
[2019-05-28 09:59] LABS: BASOPHILS # (AUTO) 0.1 (0.0-0.1); BASOPHILS % 1.4 % (0.0-1.0); EOSINOPHILS # (AUTO) 0.4 (0.0-0.4); EOSINOPHILS % 6.1 % (0.0-6.0); HEMATOCRIT 27.7 % (38.2-49.6); HEMOGLOBIN 8.6 g/dL (14.0-18.0); LYMPHOCYTES % 52.2 % (18.0-39.1); MEAN CORPUSCULAR HEMOGLOBIN 26.8 pg (28-32); MEAN CORPUSCULAR VOLUME 86.3 fL (81-99); MONOCYTES # (AUTO) 0.5 (0.2-0.8); MONOCYTES % 9.4 % (4.4-11.3); NEUTROPHILS # (AUTO) 1.8 (2.1-6.9); NEUTROPHILS % 30.9 % (38.7-80.0); PLATELET COUNT 131 x10e3/uL (140-360); RED BLOOD COUNT 3.21 x10e6/uL (4.3-5.7); RED CELL DISTRIBUTION WIDTH 14.4 % (11.7-14.4)
[2019-05-28 11:08] LABS: INR 1.13; PROTHROMBIN TIME 15.2 seconds (11.9-14.5)
[2019-05-28] MEDS ORDERED: DEXAMETHASONE PHOS 10MG INJ 20 MG in SODIUM CHLORIDE 0.9% 50ML 50 ML IV ONE (11:30)
[2019-05-28] MEDS ORDERED: SODIUM CHLORIDE 0.9% 250ML 250 ML ONE (11:51)
[2019-05-28] MEDS ORDERED: DIPHENHYDRAMINE HCL INJ 25 MG in SODIUM CHLORIDE 0.9% 50ML 50 ML IV ONE (12:00)
[2019-05-28] MEDS ORDERED: FAMOTIDINE INJ 20 MG in SODIUM CHLORIDE 0.9% 50ML 50 ML IV ONE (12:30)
[2019-05-28] MEDS ORDERED: IRON DEXTRAN INJ 50 MG in SODIUM CHLORIDE 0.9% 100 ML IV ONE (13:00)
--- NOTE | 2019-05-28 14:10 | History and Physical ---
HISTORY OF PRESENT ILLNESS: The patient is a 78-year-old male, who came to the hospital about 3 days ago with hemoglobin 6.8. The patient was transfused 1 unit, sent home from the ER, but however the patient started to get more tired, more lethargic. Another repeat H and H post transfusion two days were done, was also again 6.8. The patient was continued on aspirin, clopidogrel. Currently, the patient is feeling down, feeling lethargic, feeling very pale. The patient was seen again and admitted to the hospital for acute GI bleed monitoring. PAST MEDICAL HISTORY: 1. Recent history of cerebrovascular accident. 2. History of cirrhosis of the liver. 3. Hypertension. 4. Hyperlipidemia. 5. Diabetes mellitus. 6. History of hepatitis C. 7. History of chronic alcoholism. SOCIAL HISTORY: At this time. No EtOH. No alcohol abuse. No smoking. No history of drug abuse. MEDICATIONS: Rosuvastatin 10 mg. The patient is on venlafaxine, metformin 1 g twice a day. The patient also is on Humalog 30 units twice a day for his diabetes. Currently taking Plavix and aspirin too. FAMILY HISTORY: Positive for Alzheimer's in father and mother. History of COPD in brother. PAST SURGICAL HISTORY: Two cataract surgeries. REVIEW OF SYSTEMS: Negative for chest pain. Positive for shortness of breath. Positive for some nausea. No vomiting. No diarrhea. No hematochezia. No hematemesis. No black tarry stools. ALLERGIES: NO KNOWN ALLERGIES. Currently the patient is on ADA diet. PHYSICAL EXAMINATION: GENERAL: The patient is alert and oriented x3. VITAL SIGNS: Temp is 96, pulse of 75, respirations 18, blood pressure is 118/55, pulse oximetry of 94%. HEENT: Normocephalic and atraumatic. The patient has pallor. CVS: S1 and S2 normal, regular rhythm. ABDOMEN: Nontender, nondistended. EXTREMITIES: No clubbing, no cyanosis, no edema. LABORATORY VALUES: White count is 5.14, hemoglobin 6.8, hematocrit of 22.8, and platelet count of 151. Chemistry showed a glucose of 295. Iron is 10, TIBC 568, percent saturation 2 and transferrin of 406. ASSESSMENT: 1. Acute GI bleed. 2. Possibly secondary to anticoagulation. 3. Hypertension. 4. Diabetes mellitus. 5. Hyperlipidemia. 6. History of cerebrovascular accident. 7. Cirrhosis. 8. Chronic hepatitis C. PLAN: Guaiac stools. Consult with Dr. Mccall has been done. Consult with Dr. Miguel has been done. The patient needs iron infusions. Plan is to continue to monitor the patient and probably scope him depending on Dr. Mccall's consult. Further recommendation per clinical course. Continue transfusion. MD JC Hameed/MODL /[id number]
[2019-05-28] MEDS ORDERED: IRON DEXTRAN INJ 500 MG in SODIUM CHLORIDE 0.9% 500ML 500 ML IV PRN (15:00)
--- NOTE | 2019-05-28 19:00 | NUR ---
BEDSIDE SHIFT REPORT GIVEN TO THE BRANCH LENDING OFFICER RN. PT DENIED FURTHER NEEDS.
[2019-05-28] MEDS: SIMVASTATIN 20 MG TAB PO SCH (21:24)
[2019-05-29] VITALS (7 sets, daily range): BP systolic 128–145; BP diastolic 65–81
--- NOTE | 2019-05-29 03:38 | Consultation ---
DATE OF CONSULTATION: 05/28/2019 HISTORY OF PRESENT ILLNESS: This 78-year-old who was admitted to the hospital because of problems with anemia. He presented to the ER about three days or so ago with hemoglobin of 6.8, and he was given 1 unit and was sent home from the ER, however, continued to be tired and more lethargic and on admissions, his hemoglobin was again 6.8. He said that he had a black stool about a month or so ago and his iron was 10. He denies any abdominal pain, nausea or vomiting along with this problem. blood transfusions and hemoglobin up to 8.6. His medical problem is significant for history of recent CVA, history of cirrhosis of the liver, history of hypertension, history of hepatitis C, history of diabetes. Medication on admission including rosuvastatin, Venlafaxine, metformin, Humalog, Plavix, and aspirin. FAMILY HISTORY: Alzheimer. SOCIAL HISTORY: No alcohol abuse. FAMILY HISTORY: Noncontributory. ALLERGIES: NONE. REVIEW OF SYSTEMS: At this point, he denies any chest pain. Denies any shortness of breath. Denies any dysphagia, odynophagia. Denies any dysuria, hematuria, or any kind of syncopal episode. PHYSICAL EXAMINATION: GENERAL: Awake, alert, appears to be stable. VITAL SIGNS: Afebrile currently with stable vital signs. HEAD, EYES, EARS, NOSE, AND THROAT: Normocephalic and atraumatic. Sclerae anicteric. NECK: Supple. HEART: Regular. ABDOMEN: Soft. There is no distention at this point and it is nontender. EXTREMITIES: No clubbing. LABORATORY VALUES: WBC 7.73, hemoglobin 8.6, hematocrit 27.7, and iron 10. IMPRESSION: 1. Anemia persistence. 2. History of cerebrovascular accident. 3. Diabetes. RECOMMENDATION: Continue current care at this point. Follow labs. We will proceed with EGD for further evaluation tomorrow and follow clinically. MD NONA Tapia/MODL /[id number] cc: Joao Hickman MD
[2019-05-29 05:25] LABS: BASOPHILS % 0.2 % (0.0-1.0); EOSINOPHILS # (AUTO) 0.1 (0.0-0.4); EOSINOPHILS % 2.3 % (0.0-6.0); HEMATOCRIT 26.8 % (38.2-49.6); HEMOGLOBIN 8.3 g/dL (14.0-18.0); LYMPHOCYTES # (AUTO) 1.7 (1.0-3.2); LYMPHOCYTES % 27.8 % (18.0-39.1); MEAN CORPUSCULAR HEMOGLOBIN 26.9 pg (28-32); MONOCYTES # (AUTO) 0.2 (0.2-0.8); MONOCYTES % 3.2 % (4.4-11.3); PLATELET COUNT 132 x10e3/uL (140-360); RED BLOOD COUNT 3.08 x10e6/uL (4.3-5.7); RED CELL DISTRIBUTION WIDTH 14.4 % (11.7-14.4)
[2019-05-29 05:48] LABS: ALANINE AMINOTRANSFERASE 33 IU/L (0-55); ALBUMIN 2.9 g/dL (3.5-5.0); ALBUMIN/GLOBULIN RATIO 1.1 (0.8-2.0); ALKALINE PHOSPHATASE 104 IU/L (40-150); ANION GAP 14.2 mmol/L (8-16); BLOOD UREA NITROGEN 19 mg/dL (7-26); BUN/CREATININE RATIO 18 (6-25); CALCIUM 8.9 mg/dL (8.4-10.2); CARBON DIOXIDE 21 mmol/L (22-29); CHLORIDE 107 mmol/L (98-107); CREATININE, SERUM 1.06 mg/dL (0.72-1.25); EST GLOMERULAR FILTRATION RATE > 60 ML/MIN (60-); GLUCOSE 314 mg/dL (74-118); POTASSIUM 4.2 mmol/L (3.5-5.1); SODIUM 138 mmol/L (136-145)
--- NOTE | 2019-05-29 07:00 | NUR ---
BEDSIDE SHIFT REPORT RECEIVED FROM THE SUPERVISOR PIPE FINISHING RN. EDUCATED PT ABOUT FALL PRECAUTIONS. CALL LIGHT WITH IN EASY REACH. INSTRUCTED PT TO USE CALL LIGHT FOR ALL THE NEEDS. PT VERBALIZED UNDERSTANDING. BED IS LOW AND LOCKED. SIDE RAILS X2. PT IS ON NPO FOR PROCEDURE. PT DENIES NEEDS AT THIS TIME.
--- NOTE | 2019-05-29 07:08 | Progress Note ---
DATE: SUBJECTIVE: This is a 78-year-old gentleman, who came in with acute GI bleed. The patient is currently status post 2 units of PRBC and is getting iron at this time. The patient has no chest pain, no shortness of breath, no rectal bleeding, no melena. At this time, the patient is scheduled for an EGD today to rule out upper GI bleed. Currently stable. OBJECTIVE: VITAL SIGNS: Temperature 97.0, pulse of 76, respirations of 18, blood pressure is 128/81, pulse oximetry of 91%. The patient is on room air. HEENT: Normocephalic and atraumatic. Pupils are reactive to light and accommodation. CVS: S1 and S2. Normal rate and rhythm. ABDOMEN: Nondistended, soft. EXTREMITIES: No clubbing, no cyanosis, no edema. LABORATORY VALUES: White count is 6, hemoglobin and hematocrit have jumped up to 8.3 and 26.8, and platelet count is 132. Coags; PT 15.2, INR of 1.13 on 05/28. Iron panels were noted yesterday and they are low. The patient is on infusion of iron. MICROBIOLOGY: None done. ASSESSMENT: Mr. Harpreet Joseph is a 78-year-old male with: 1. Acute gastrointestinal bleed. 2. Presence of anticoagulation. 3. Iron deficiency anemia. 4. History of cerebrovascular accident. 5. Cirrhosis of liver. 6. Chronic hepatitis C. PLAN: Guaiac stools positive. The patient is scheduled for EGD today. The patient is getting iron infusion at this time. Continue to monitor the patient and if possible and stable, the patient can be discharged tomorrow depending on consultants. Joao Hickman MD ASJ/MODL /[id number]
[2019-05-29] MEDS: METFORMIN HCL 500 MG TAB PO SCH ×2 (08:00→17:13)
[2019-05-29] MEDS: INSULIN LISPRO 100 UNIT/1 ML 3ML VIAL SQ SCH ×2 (08:00→17:00)
--- NOTE | 2019-05-29 08:30 | NUR ---
PAGED DR. PONCE AND REPORTED PT BLOOD SUGAR [id number]. PT IS ON NPO FOR EGD.
--- NOTE | 2019-05-29 09:00 | NUR ---
HOLD MORNING INSULIN HUMALOG 30 UNITS SINCE THE PT IS ON NPO PER DR. PONCE
--- NOTE | 2019-05-29 09:00 | NUR ---
[email or web address] AND ER REGARDING THE SAME .
--- NOTE | 2019-05-29 11:30 | NUR ---
PAGED OR AND REPORTED PT BLOOD SUGAR [id number]. SPOKE TO CHEMIST BIOLOGICAL. HOLD INSULIN PER THE CHEMIST BIOLOGICAL.
--- NOTE | 2019-05-29 12:00 | NUR ---
PT OFF UNIT FOR PROCEDURE IN SAFE CONDITION.
--- NOTE | 2019-05-29 14:25 | NUR ---
PT BACK TO UNIT AFTER PROCEDURE. FAMILY AT BEDSIDE. PT DENIES NEEDS AT THIS TIME.
[2019-05-29] MEDS: VENLAFAXINE HCL 37.5 MG TAB PO SCH (14:35)
[2019-05-29] MEDS ORDERED: PROPOFOL IV EMULSION 10 MG/ML 20 ML VIAL ONE (17:49)
[2019-05-29] MEDS ORDERED: LIDOCAINE HCL 2% LOCAL INJ 5 ML SDV VIAL INJ ONE (17:49)
[2019-05-29] MEDS ORDERED: FENTANYL CITRATE/PF 100MCG/2 ML INJ ONE (18:44)
--- NOTE | 2019-05-29 19:00 | NUR ---
BEDSIDE SHIFT REPORT GIVEN TO THE MIXER OPERATOR RN. PT DENIED FURTHER NEEDS.
--- NOTE | 2019-05-29 19:05 | NUR ---
Pt visited in room during nursing rounds. Patient alert and oriented x3. Pt ambulatory in room prn. Pt denies any pain or discomfort at this time. Call lomeli within reach. Will monitor pt closely.
--- NOTE | 2019-05-29 19:30 | NUR ---
Pt refused bed alarm. Pt aware of hospital policy.
[2019-05-29] MEDS: SIMVASTATIN 20 MG TAB PO SCH (20:15)
[2019-05-30] VITALS: BP 131/63
[2019-05-30 04:02] VITALS: BP 117/54
[2019-05-30 05:01] LABS: BASOPHILS % 0.3 % (0.0-1.0); EOSINOPHILS % 0.3 % (0.0-6.0); HEMATOCRIT 27.7 % (38.2-49.6); HEMOGLOBIN 8.4 g/dL (14.0-18.0); LYMPHOCYTES # (AUTO) 4.4 (1.0-3.2); LYMPHOCYTES % 38.1 % (18.0-39.1); MEAN CORPUSCULAR HEMOGLOBIN 26.5 pg (28-32); MEAN CORPUSCULAR HGB CONC 30.3 g/dL (31-35); MEAN CORPUSCULAR VOLUME 87.4 fL (81-99); MONOCYTES # (AUTO) 0.7 (0.2-0.8); MONOCYTES % 5.7 % (4.4-11.3); NEUTROPHILS # (AUTO) 6.4 (2.1-6.9); NEUTROPHILS % 55.3 % (38.7-80.0); PLATELET COUNT 157 x10e3/uL (140-360); RED BLOOD COUNT 3.17 x10e6/uL (4.3-5.7); RED CELL DISTRIBUTION WIDTH 14.7 % (11.7-14.4)
[2019-05-30 05:26] LABS: ANION GAP 15.9 mmol/L (8-16); BLOOD UREA NITROGEN 19 mg/dL (7-26); BUN/CREATININE RATIO 23 (6-25); CALCIUM 8.9 mg/dL (8.4-10.2); CARBON DIOXIDE 22 mmol/L (22-29); CHLORIDE 107 mmol/L (98-107); CREATININE, SERUM 0.82 mg/dL (0.72-1.25); EST GLOMERULAR FILTRATION RATE > 60 ML/MIN (60-); GLUCOSE 147 mg/dL (74-118); POTASSIUM 3.9 mmol/L (3.5-5.1); SODIUM 141 mmol/L (136-145)
--- NOTE | 2019-05-30 07:00 | NUR ---
BEDSIDE SHIFT REPORT RECEIVED FROM TALEND ETL DEVELOPER RN. PT DENIES NEEDS AT THIS TIME.
[2019-05-30] MEDS ORDERED: PANTOPRAZOLE SOD 40 MG TABEC PO SCH (07:30)
[2019-05-30 07:42] VITALS: BP 125/53
[2019-05-30 07:47] LABS: LYMPHOCYTES % (MANUAL) 34 % (19-48); MONOCYTES % (MANUAL) 4 % (3.4-9.0); NEUTROPHILS % (MANUAL) 62 % (40-74)
[2019-05-30] MEDS: METFORMIN HCL 500 MG TAB PO SCH (08:38)
[2019-05-30] MEDS: INSULIN LISPRO 100 UNIT/1 ML 3ML VIAL SQ SCH (08:42)
[2019-05-30] MEDS: VENLAFAXINE HCL 37.5 MG TAB PO SCH (09:15)
--- NOTE | 2019-05-30 09:17 | NUR ---
Spoke to Dr. Hickman regarding dc plan. Informed him that pt is day 3 obs. He said pt will discharge today.
[2019-05-30 10:20] VITALS: BP 125/53
[2019-05-30 11:41] VITALS: BP 146/62
[2019-05-30] MEDS ORDERED: PROPRANOLOL HCL 10 MG TAB PO SCH (14:00)
== END 2019-05-30 14:49 | disposition home or self-care (01) ==
LOC: INTOOBSV 18:50 → MED/SURG2 18:50
PROVIDERS: ADMIT Family Medicine; ATTEND Family Medicine
DX: K92.2 Gastrointestinal hemorrhage, unspecified (principal); Z86.73 Personal history of transient ischemic attack (TIA), and cerebral infarction without residual deficits; I10 Essential (primary) hypertension; E11.9 Type 2 diabetes mellitus without complications; K74.60 Unspecified cirrhosis of liver; B18.2 Chronic viral hepatitis C; D50.9 Iron deficiency anemia, unspecified; K29.70 Gastritis, unspecified, without bleeding; K44.9 Diaphragmatic hernia without obstruction or gangrene; I85.00 Esophageal varices without bleeding
CPT/HCPCS: 36415 ×4; 43239; 43244; 80048; 80053; 82140; 82948 ×4; 83540; 84466; 85007; 85025 ×3; 85027; 85610 ×2; 85730; 86850; 86900; 86920; 88305; 88312; G0378 ×4; J1100; J1200; J1750; J1940; J2001; J2704; J3010; J3490; J7040; J7050 ×3; P9016 ×2; S0164; 43255

== ENCOUNTER → 2019-06-24 | Outpatient (CLI) | payer MEDICARE ==
[~2019-06-24] MED LIST changes: +NOVOLOG100 UNITS1 SC
[2019-06-24 16:38] LABS: BASOPHILS % 0.7 % (0.0-1.0); EOSINOPHILS # (AUTO) 0.4 (0.0-0.4); EOSINOPHILS % 8.2 % (0.0-6.0); HEMATOCRIT 32.4 % (38.2-49.6); HEMOGLOBIN 10.2 g/dL (14.0-18.0); LYMPHOCYTES # (AUTO) 1.9 (1.0-3.2); LYMPHOCYTES % 44.8 % (18.0-39.1); MEAN CORPUSCULAR HEMOGLOBIN 28.9 pg (28-32); MEAN CORPUSCULAR HGB CONC 31.5 g/dL (31-35); MEAN CORPUSCULAR VOLUME 91.8 fL (81-99); MONOCYTES # (AUTO) 0.4 (0.2-0.8); MONOCYTES % 8.6 % (4.4-11.3); NEUTROPHILS # (AUTO) 1.6 (2.1-6.9); NEUTROPHILS % 37.7 % (38.7-80.0); PLATELET COUNT 114 x10e3/uL (140-360); RED BLOOD COUNT 3.53 x10e6/uL (4.3-5.7); RED CELL DISTRIBUTION WIDTH 18.9 % (11.7-14.4)
[2019-06-24 16:52] LABS: INR 1.02
[2019-06-24 16:53] LABS: PARTIAL THROMBOPLASTIN TIME 33.7 seconds (23.8-35.5)
[2019-06-24 16:59] LABS: ALANINE AMINOTRANSFERASE 30 IU/L (0-55); ALBUMIN 3.1 g/dL (3.5-5.0); ALBUMIN/GLOBULIN RATIO 1.1 (0.8-2.0); ALKALINE PHOSPHATASE 100 IU/L (40-150); ANION GAP 9.5 mmol/L (8-16); BLOOD UREA NITROGEN 12 mg/dL (7-26); BUN/CREATININE RATIO 10 (6-25); CALCIUM 9.6 mg/dL (8.4-10.2); CARBON DIOXIDE 29 mmol/L (22-29); CHLORIDE 104 mmol/L (98-107); CREATININE, SERUM 1.15 mg/dL (0.72-1.25); EST GLOMERULAR FILTRATION RATE > 60 ML/MIN (60-); GLUCOSE 305 mg/dL (74-118); POTASSIUM 4.5 mmol/L (3.5-5.1); SODIUM 138 mmol/L (136-145)
== END ==
LOC: DX 15:17 → EDSTATUS 06-26 12:30
PROVIDERS: ATTEND Internal Medicine Gastroenterology
DX: Z01.818 Encounter for other preprocedural examination (principal); K70.30 Alcoholic cirrhosis of liver without ascites; I85.00 Esophageal varices without bleeding; E11.9 Type 2 diabetes mellitus without complications; K29.00 Acute gastritis without bleeding; K44.9 Diaphragmatic hernia without obstruction or gangrene; I10 Essential (primary) hypertension; E66.3 Overweight; Z86.010 Personal history of colon polyps; Z87.891 Personal history of nicotine dependence; Z71.3 Dietary counseling and surveillance; Z53.8 Procedure and treatment not carried out for other reasons
CPT/HCPCS: 36415; 80053; 85025; 85610; 85730; 93005

== ENCOUNTER → 2019-09-04 | Day surgery (SDC) | payer MEDICARE, OTHER ==
[2019-08-30 15:40] LABS: BASOPHILS # (AUTO) 0.1 (0.0-0.1); EOSINOPHILS # (AUTO) 0.5 (0.0-0.4); EOSINOPHILS % 7.8 % (0.0-6.0); HEMATOCRIT 35.8 % (38.2-49.6); HEMOGLOBIN 11.2 g/dL (14.0-18.0); LYMPHOCYTES # (AUTO) 3.4 (1.0-3.2); LYMPHOCYTES % 54.8 % (18.0-39.1); MEAN CORPUSCULAR HEMOGLOBIN 28.6 pg (28-32); MEAN CORPUSCULAR HGB CONC 31.3 g/dL (31-35); MEAN CORPUSCULAR VOLUME 91.3 fL (81-99); MONOCYTES # (AUTO) 0.5 (0.2-0.8); NEUTROPHILS # (AUTO) 1.7 (2.1-6.9); NEUTROPHILS % 28.4 % (38.7-80.0); PLATELET COUNT 121 x10e3/uL (140-360); RED BLOOD COUNT 3.92 x10e6/uL (4.3-5.7); RED CELL DISTRIBUTION WIDTH 16.1 % (11.7-14.4)
[2019-08-30 15:49] LABS: INR 0.94; PROTHROMBIN TIME 13.1 seconds (11.9-14.5)
[2019-08-30 15:50] LABS: PARTIAL THROMBOPLASTIN TIME 32.6 seconds (23.8-35.5)
[2019-08-30 16:00] LABS: ALANINE AMINOTRANSFERASE 37 IU/L (0-55); ALBUMIN 3.4 g/dL (3.5-5.0); ALBUMIN/GLOBULIN RATIO 1.2 (0.8-2.0); ALKALINE PHOSPHATASE 104 IU/L (40-150); ANION GAP 13.9 mmol/L (8-16); BLOOD UREA NITROGEN 12 mg/dL (7-26); BUN/CREATININE RATIO 11 (6-25); CALCIUM 9.6 mg/dL (8.4-10.2); CARBON DIOXIDE 25 mmol/L (22-29); CHLORIDE 104 mmol/L (98-107); CREATININE, SERUM 1.13 mg/dL (0.72-1.25); EST GLOMERULAR FILTRATION RATE > 60 ML/MIN (60-); GLUCOSE 308 mg/dL (74-118); POTASSIUM 4.9 mmol/L (3.5-5.1); SODIUM 138 mmol/L (136-145)
[~2019-09-04] MED LIST changes: +FENTANYL CITRATE/PF 100MCG/2 ML INJ ONE; +INSULIN REGULAR, HUMAN 100 UNIT/1 ML 3ML VIAL ONE; +PROPOFOL IV EMULSION 10 MG/ML 20 ML VIAL ONE
[2019-09-04 12:00] VITALS: BP 189/86
--- OUTSIDE RECORDS SUMMARY | 2019-09-05 08:51 | XMS REPORT | Continuity of Care Document ---
Author Author [employer] CARLITO Hernandez [employer] Address Unknown Phone Unavailable Care Team Providers Care Director Of Preclinical Research Name Role Phone [email or web address] Unavailable Un available Problems Problem Status Onset Date Classification Date Reported Comments Source DX: ULCER LT 1ST Active 09/07/2018 [facility] Diabetes Mellitus Active 06/12/2013 [facility] Hypertension Active 06/12/2013 [facility] Hyperlipidemia Active 06/12/2013 [facility] Medications Medication Details Route Status Patient Instructions Ordering Provider Order Date Source Simvastatin 80 MG Oral Tablet (Active) Active [facility] GlipiZIDE XL 10 MG Oral Tablet Extended Release 24 Roderick r (Active) Active [facility] Losartan Potassium 50 MG Oral Tablet (Active) Active [facility] Venlafaxine HCl ER 75 MG Oral Capsule Ex tended Release 24 Hour (Active) A ctive [facility] MetFORMIN HCl 1000 MG Oral Tablet (Active) Active [facility] Desoximetasone 0.25 % External Cream (Active) Active [facility] Cinnamon 500 MG Oral Capsule (Active) Active [facility] Allergies, Adverse Reactions, Alerts Substance Category Reaction Severity Reaction type Status Date Reported Comments Source No Known Drug Allergies drug a llergy drug aller gy Active [facility] Immunizations Immunization Date Given Site Status Last Updated Comments Source Influenza completed [facility] Td completed [facility] Results No Data Provided for This Section Pathology Reports No Data Provided for This Section Diagnostic Reports Report Value Date Source Foot wo contrast MRI Exam: Lef t Foot wo contrast MRI Clinical Indication: - [...] left foot. 2. Mild diffuse subcutaneous edema with out focal fluid collection. 3. Plantar fascia fibromatosis. 4. Moderate foot muscle atrophy most li johnnie relating to chronic denervation/neuropathic change. SL: [id number] 09/21/2018 [facility] Consultation Notes No Data Provided for This Section Discharge Summaries No Data Provided for This Section History and Physicals No Data Provided for This Section Vital Signs No Data Provided for This Section Encounters Location Location Details Encounter Type Encounter Number Reason For Visit Attending Provider ADM Date DC Date Status Source AUDIT [id number] 06/12/2013 06/12/2013 [facility] [id number] Etienne Emerson 09/21/2018 09/22/2018 [facility] Procedures No Data Provided for This Section Assessment and Plan No Data Provided for This Section Plan of Care No Data Provided for This Section Social History Social History Date Source No data available for this section 09/22/2018 [facility] Marital History - Currently (Active) Alcohol Use (Active) No History of Drug Use (Denied) Never A Smoker (Active) Occupation: Retired (Active) 06/12/2013 [facility] Family History Value Date S ource Family history of Alzheimer Disease (Active) Paternal history of Diabetes Mellitus (V18.0); (Active) Maternal history of Hypertension (V17.49); (Active) Maternal history of Colon Cancer (V16.0); (Active) Family history of Asthma (V17.5); (Active) Family history of Depression (Active) 06/12/2013 [facility] Advance Directives Order Name Results Value Date Source Advance Directives Advance Dir ectives No Advance Directives available. 06/12/2013 [facility] Functional Status No Data Provided for This Section
--- OUTSIDE RECORDS SUMMARY | 2019-09-05 08:51 | XMS REPORT ---
Author Author CARLITO Delcid Organization Unknown Address Unknown Phone Care Team Providers Care Results Engineer Name Role Phone Bhavin Loida PP Reason for Referral No Reason for Referral was given. History of Present Illness No HPI available. Problems * Normal Routine History And Physical Senior Citizen (65-80) (V70.0); ( Active) * Diabetes Mellitus (250.00); (Active) * Hypertension (401.9); (Active) * Hyperlipidemia (272.4); (Active) Medication * Simvastatin 80 MG Oral Tablet; TAKE 1 TABLET DAILY. (Active) * GlipiZIDE XL 10 MG Oral Tablet Extended Release 24 Hour; TAKE 1 TABLET DAILY. (Active) * Losartan Potassium 50 MG Oral Tablet; TAKE 1 TABLET DAILY. (Active) * Venlafaxine HCl ER 75 MG Oral Capsule Extended Release 24 Hour; TAKE 1 CAPSULE DAILY. (Active) * MetFORMIN HCl 1000 MG Oral Tablet; TAKE 1 TABLET TWICE DAILY. (Active) * Desoximetasone 0.25 % External Cream (Active) * Cinnamon 500 MG Oral Capsule (Active) Allergies and Adverse Reactions * No Known Drug Allergies (Active) Past Medical History * History of Visit For: Routine Adult H&P (V70.0); (Resolved) Procedures Procedure Procedure Date Date Completed Status Complete Colonoscopy - - Resolved Immunization * Influenza * Td Family History * Family history of Alzheimer Disease (Active) * Paternal history of Diabetes Mellitus (V18.0); (Active) * Maternal history of Hypertension (V17.49); (Active) * Maternal history of Colon Cancer (V16.0); (Active) * Family history of Asthma (V17.5); (Active) * Family history of Depression (Active) Social History * Marital History - Currently (Active) * Alcohol Use (Active) * No History of Drug Use (Denied) * Never A Smoker (Active) * Occupation: Retired (Active) Advance Directives * No Advance Directives available. Encounters * AUDIT 06/12/2013
--- OUTSIDE RECORDS SUMMARY | 2019-09-05 08:52 | XMS REPORT ---
Author Author [facility] t Organization [facility] Address [address] [place] [address] Phone Unavailable Care Team Providers Care Pipe Caulker Name Role Phone Shelly PONCE MD PCP Shelly PONCE Attphys Unavailable Fahad Emerson Attphys Cristiana RIVAS Attphys Unavailable Shelly PONCE Admphys Unavailable Payers Payer Name Policy Type Policy Number Effective Date Expiration Date [facility] [id number] 2016 00:00:00 [facility] [id number] 2016 00:00:00 [facility] [id number] 2016 00:00:00 [facility] [id number] 2016 00:00:00 [facility] [id number] 2016 00:00:00 [facility] [id number] 2016 00:00:00 [facility] [id number] 2016 00:00:00 [facility] Problems Condition Name Condition Details Condition Category Status Onset Date Resolution Date Last Treatment Date Treating Clinician Comments Source DX: ULCER LT 1ST DX: ULCER LT 1ST Active 09/07/2018 [facility] Diagnosis Active 2018-09-07 00:00:00 2018-09-21 18:42:00 [facility] Elevated liver function tests Elevated LFTs Problem Active 201 08-26-17 00:00:00 [facility] Increased serum lipase level Elevated lipase Problem Active 20 31-03-18 00:00:00 [facility] Fever Fever Problem Active 2015-04-03 00:00:00 [facility] Hyponatremia Hyponatremia Problem Active 2015-04-03 00:00:00 [facility] Abdominal pain Abdominal pain Problem Active [facility] Hepatic cirrhosis Cirrhosis Problem Active [facility] Nausea Nausea Problem Active [facility] Volume depletion Volume depletion Problem Active [facility] Cerebrovascular accident (CVA) CVA (cerebral vascular accident) Pro blem Active [facility] Diabetes Mellitus Diab etes Mellitus Active 06/12/2013 [facility] Problem Active 2013-06-12 17:54:05 [facility] Hypertension Hype rtension Active 06/12/2013 [facility] Problem Active 2013-06-12 17:54:05 [facility] Hyperlipidemia Hype rlipidemia Active 06/12/2013 [facility] Problem Active 2013-06-12 17:54:05 [facility] Allergies, Adverse Reactions, Alerts Allergy Name Allergy Type Status Severity Reaction(s) Onset Date Inacti ve Date Treating Clinician Comments Source No Known Allergies DA Active U 2017-04-12 00:00:00 [facility] No Known Drug Allergies No Known Drug Allergies Active [facility] Social History Social Habit Start Date Stop Date Quantity Comments Source Social History 2013-06-12 17:54:05 2013-06-12 17:54:05 [facility] Medications Ordered Medication Name Filled Medication Name Start Date Stop Da te Current Medication? Ordering Clinician Indication Dosage Frequency Signature (SIG) Comments Components Source Ciprofloxacin Hcl 500 Mg Tablet, 500 Mg Oral Ciproflox acin Hcl 500 Mg Tablet, 500 Mg Oral 2015-04-07 00:00:00 2018-12-05 00:00:00 No Flavia Rivas Md 500 Twice A Day [facility] Metronidazole 500 Mg Tablet, 500 Mg Oral Metronidazole 500 Mg Tablet, 500 Mg Oral 2015-04-07 00:00:00 2018-12-05 00:00:00 No Gosia ellis Md 500 Three Times A Day [facility] Ondansetron (Zofran Odt) 4 Mg Tab.rapdis, 4 Mg Oral On dansetron (Zofran Odt) 4 Mg Tab.rapdis, 4 Mg Oral 2015-04-07 00:00:00 2018-12-05 00:00:00 An Rivas Md 4 Every 6 Hours as needed for Nausea A nd Vomiting [facility] Simvastatin 80 MG Oral Tablet 2013-06-12 17:54:05 Yes (Active) [facility] GlipiZIDE XL 10 MG Oral Tablet Extended Release 24 Hour 2013-06-12 17:54:05 Yes (Active) [facility] Losartan Potassium 50 MG Oral Tablet 2013-06-12 17:54:05 Ye s (Active) [facility] Venlafaxine HCl ER 75 MG Oral Capsule Extended Release 24 Ho ur 2013-06-12 17:54:05 Yes (Active) [facility] MetFORMIN HCl 1000 MG Oral Tablet 2013-06-12 17:54:05 Yes (Active) [facility] Desoximetasone 0.25 % External Cream 2013-06-12 17:54:05 Ye s (Active) [facility] Cinnamon 500 MG Oral Capsule 2013-06-12 17:54:05 Yes (Active) [facility] Insulin Aspart (Novolog) 100 Units/1 Ml Inj Insulin As part (Novolog) 100 Units/1 Ml Inj Yes 30 Twice Daily With Meals [facility] Metformin Hcl 500 Mg Tablet Metformin Hcl 500 Mg Tablet Yes 1000 Twice A Day [facility] Multivitamin (Multi-Vitamin Daily) 1 Each Tablet Multi vitamin (Multi-Vitamin Daily) 1 Each Tablet Yes [facility] Rosuvastatin Calcium (Crestor) 10 Mg Tab Rosuvastatin Calcium (Crestor) 10 Mg Tab Yes 20 Daily [facility] Venlafaxine Hcl 75 Mg Tab Venlafaxine Hcl 75 Mg Tab Yes 75 Daily [facility] Aspirin (Aspir 81) 81 Mg Tablet., 81 Mg Oral Aspirin (Aspir 81) 81 Mg Tablet., 81 Mg Oral 2019-05-30 00:00:00 No 81 Da chong [facility] Clopidogrel Bisulfate (Plavix) 75 Mg Tablet, 75 Mg Ora l Clopidogrel Bisulfate (Plavix) 75 Mg Tablet, 75 Mg Oral 2019-05-30 00:00:00 No 75 Daily [facility] Cyanocobalamin (Vitamin B-12) 1,000 Mcg Tab, 1000 Mcg Oral Cyanocobalamin (Vitamin B-12) 1,000 Mcg Tab, 1000 Mcg Oral 2019-05-27 00:00:00 No 1000 Daily [facility] Insulin Lispro (Humalog) 100 Unit/1 Ml Cartridge, Insu francis Lispro (Humalog) 100 Unit/1 Ml Cartridge, 2019-05-27 00:00:00 No Before Meals And At Bedtime [facility] Ciprofloxacin Hcl (Cipro) 500 Mg Tablet, 500 Mg Oral C iprofloxacin Hcl (Cipro) 500 Mg Tablet, 500 Mg Oral 2019-04-18 00:00:00 No 500 Every 12 Hours [facility] Diphenoxylate Hcl/Atropine (Lomotil Tablet) 1 Each Tab let, 1 Tab Oral Diphenoxylate Hcl/Atropine (Lomotil Tablet) 1 Each Tablet, 1 Tab Oral 2019-04-18 00:00:00 No 1 Every 6 Hours as nee ded for Diarrhea [facility] Ozempic , 1 Unit Sub-Q Ozempic , 1 Unit Sub-Q 2018-12-22 00:00:00 No 1 Q7days for Dm [facility] Glipizide (Glucotrol) 10 Mg Tablet, 10 Mg Oral Glipizi de (Glucotrol) 10 Mg Tablet, 10 Mg Oral 2018-12-05 00:00:00 No 10 Daily [facility] Insulin Lisp Protam/Lisp Human (Humalog Mix 75-25 Vial ) 100 Units/Ml Ml, Insulin Lisp Protam/Lisp Human (Humalog Mix 75-25 Vial) 100 Units/Ml Ml, 2018-12-05 00:00:00 No [facility] Losartan Potassium 25 Mg Tablet, 50 Mg Oral Losartan P otassium 25 Mg Tablet, 50 Mg Oral 2018-12-05 00:00:00 No 50 Daily [facility] Simvastatin 40 Mg Tablet, 40 Mg Oral Simvastatin 40 Mg Tablet, 4 0 Mg Oral 2018-12-05 00:00:00 No 40 Today At 9:00PM [facility] Cephalexin Monohydrate (Keflex) 500 Mg Capsule, 500 Mg Oral Cephalexin Monohydrate (Keflex) 500 Mg Capsule, 500 Mg Oral 2015-04-07 00:00:00 No 500 Twice A Day [facility] Glucotrol , Glucotrol , 2015-04-02 00:00:00 [facility] Unk Htn Pill , Unk Htn Pill , 2015-04-02 00:00:00 [facility] Procedures Procedure Date / Time Performed Performing Clinician Sourc e EGD BIOPSY SINGLE/MULTIPLE 2019-05-27 00:00:00 ALFRED MARTINEZ [facility] EGD VARICES LIGATION 2019-05-27 00:00:00 ALFRED MARTINEZ [facility] BLOOD TRANSFUSION SERVICE 2019-05-23 00:00:00 JASE Martines [facility] CT angiography of neck 2019-04-19 00:00:00 SARA OLIVAS [facility] Computed tomography angiography of brain 2019-04-19 00:00:00 SARA DOYLE [facility] Computed tomography of brain without radiopaque contrast 00:00:00 LUCIA SMYTH [facility] Magnetic resonance imaging of brain without contrast 2019-04 00:00:00 DEVANTE COLLINS [facility] Computed tomography of abdomen and pelvis with contrast 2018 00:00:00 SALLIE ANDRE [facility] Computed tomography of abdomen and pelvis with contrast 2018 00:00:00 JUAN RUIZ [facility] Encounters Start Date/Time End Date/Time [facility] ID Source 2019-05-20 14:33:00 2019-06-15 23:59:00 Discharged Recurring [facility] [id number] [facility] 2019-05-27 18:50:00 2019-05-30 14:49:00 Discharged Inpatient (obs) [facility] [id number] [facility] 2019-05-23 10:05:00 2019-05-23 16:23:00 Departed Emergency Room [facility] [id number] [facility] 2019-05-02 15:44:00 2019-05-17 23:59:00 Discharged Recurring [facility] [id number] [facility] 2019-04-19 10:04:00 2019-04-20 15:48:00 Discharged Inpatient 1 LEOLA PONCE [facility] [id number] [facility] 2019-03-21 14:23:00 2019-04-16 23:59:00 Discharged Recurring [facility] [id number] [facility] 2018-12-19 08:48:00 2018-12-22 08:32:00 Discharged Inpatient 1 LEOLA PONCE [facility] [id number] [facility] 2018-12-05 16:32:00 2018-12-08 12:20:00 Discharged Inpatient (obs) 3 LEOLA PONCE [facility] [id number] [facility] 2018-09-21 23:34:00 2018-09-22 04:59:00 Outpatient [facility] [id number] [facility] 2018-09-21 18:34:00 2018-09-21 23:59:00 Outpatient Marianela Emerson [facility] [id number] 2018-09-21 18:34:00 2018-09-21 18:34:00 Outpatient MHSE MHSE [id number] [facility] 2013-06-12 11:54:05 2013-06-12 17:54:05 AUDIT MHIEALT [facility] [id number] [facility] 2013-06-12 11:54:05 2013-06-12 11:54:05 Outpatient MHIEA [facility] [id number] Results Test Description Test Time Test Comments Results Result Comments Source Bedside Glucose 2019-05-30 12:20:00 Test Item Bedside Glucose (test code = 09634-5) 164 70-120 Meter ID: [id number] Hermann [facility] HospitalDifferential Total Cells Dbgqowm1348-19-76 07:50:00* Test Item Value Reference Range Interpretation Comments Differential Total Cells Counted (test code = Differen tial Total Cells Counted) 100 [facility] HospitalNeutrophils % (Manual)2019-05-30 07:50:00 * Test Item Value Reference Range Interpretation Comments Neutrophils % (Manual) (test code = 91380-9) 62 40-74 [facility] HospitalLymphocytes % (Manual)2019-05-30 07:50:00 * Test Item Value Reference Range Interpretation Comments Lymphocytes % (Manual) (test code = 737-7) 34 19-48 [facility] HospitalMonocytes % (Manual)2019-05-30 07:50:00* Test Item Value Reference Range Interpretation Comments Monocytes % (Manual) (test code = 744-3) 4 3.4-9.0 [facility] Tehsv6902-79-01 05:32:00* Test Item Value Reference Range Interpretation Comments Sodium Level (test code = 2951-2) 141 136-145 [facility] HospitalPotassium Qxwmz4113-05-31 05:32:00* Test Item Value Reference Range Interpretation Comments Potassium Level (test code = 2823-3) 3.9 3.5-5.1 [facility] HospitalChloride Hctdg6842-12-24 05:32:00* Test Item Value Reference Range Interpretation Comments Chloride Level (test code = 2075-0) 107 98-107 [facility] HospitalCarbon Dioxide Nwwph7397-82-54 05:32:00* Test Item Value Reference Range Interpretation Comments Carbon Dioxide Level (test code = 2028-9) 22 22-29 [facility] HospitalAnion Eog0332-36-42 05:32:00* Test Item Value Reference Range Interpretation Comments Anion Gap (test code = 94386-0) 15.9 8-16 [facility] HospitalBlood Urea Thufdegf6633-04-22 05:32:00* Test Item Value Reference Range Interpretation Comments Blood Urea Nitrogen (test code = 3094-0) 19 7-26 [facility] HospitalCreatinine2020-02-13 05:32:00* Test Item Value Reference Range Interpretation Comments Creatinine (test code = 2160-0) 0.82 0.72-1.25 [facility] HospitalBUN/Creatinine Owefx1007-67-39 05:32:00* Test Item Value Reference Range Interpretation Comments BUN/Creatinine Ratio (test code = 3097-3) 23 6-25 [facility] HospitalEstimat Glomerular Filtration Rate 2019-05-30 05:32:00* Test Item Value Reference Range Interpretation Comments Estimat Glomerular Filtration Rate (test code = 696558304) > 60 >60 Ranges were taken from the National Kidney Disease Education Program and the [facility] [employer] literature.Reference ranges:60 or greater: Scnrlu27-46 ( for 3 consecutive months): Chronic kidney disease 15 or less: Kidney failureMemorial Hermann Southeast HospitalGlucose Jgleb3981-15-19 05:32:00* Test Item Value Reference Range Interpretation Comments Glucose Level (test code = XPG8727) 147 74-118 [facility] HospitalCalcium Iqekd2634-28-19 05:32:00* Test Item Value Reference Range Interpretation Comments Calcium Level (test code = 96117-8) 8.9 8.4-10.2 [facility] HospitalWhite Blood Qtvnh3272-14-20 05:07:00* Test Item Value Reference Range Interpretation Comments White Blood Count (test code = 6690-2) 11.59 4.8-10.8 [facility] HospitalRed Blood Qypay4192-47-54 05:07:00* Test Item Value Reference Range Interpretation Comments Red Blood Count (test code = 789-8) 3.17 4.3-5.7 [facility] HospitalHemoglobin2020-02-13 05:07:00* Test Item Value Reference Range Interpretation Comments Hemoglobin (test code = 36742-5) 8.4 14.0-18.0 [facility] HospitalHematocrit2020-02-13 05:07:00* Test Item Value Reference Range Interpretation Comments Hematocrit (test code = 4544-3) 27.7 38.2-49.6 [facility] HospitalMean Corpuscular Hxvnzn6587-17-89 05:07:00* Test Item Value Reference Range Interpretation Comments Mean Corpuscular Volume (test code = 787-2) 87.4 81-99 [facility] HospitalMean Corpuscular Vxhhdcnehn6311-69-82 05:07:00* Test Item Value Reference Range Interpretation Comments Mean Corpuscular Hemoglobin (test code = 785-6) 26.5 28-32 [facility] HospitalMean Corpuscular Hemoglobin Concent 2019-05-30 05:07:00* Test Item Value Reference Range Interpretation Comments Mean Corpuscular Hemoglobin Concent (test code = 786-4) 30.3 31-35 [facility] HospitalRed Cell Distribution Rpybm3684-66-96 05:07:00* Test Item Value Reference Range Interpretation Comments Red Cell Distribution Width (test code = 41806-2) 14.7 11.7 -14.4 [facility] HospitalPlatelet Smqlh2525-72-13 05:07:00* Test Item Value Reference Range Interpretation Comments Platelet Count (test code = 777-3) 157 140-360 [facility] HospitalNeutrophils (%) (Auto)2019-05-30 05:07:00 * Test Item Value Reference Range Interpretation Comments Neutrophils (%) (Auto) (test code = 79893-0) 55.3 38.7-80.0 [facility] HospitalLymphocytes (%) (Auto)2019-05-30 05:07:00 * Test Item Value Reference Range Interpretation Comments Lymphocytes (%) (Auto) (test code = 736-9) 38.1 18.0-39.1 [facility] HospitalMonocytes (%) (Auto)2019-05-30 05:07:00* Test Item Value Reference Range Interpretation Comments Monocytes (%) (Auto) (test code = 5905-5) 5.7 4.4-11.3 [facility] HospitalEosinophils (%) (Auto)2019-05-30 05:07:00 * Test Item Value Reference Range Interpretation Comments Eosinophils (%) (Auto) (test code = 713-8) 0.3 0.0-6.0 [facility] HospitalBasophils (%) (Auto)2019-05-30 05:07:00* Test Item Value Reference Range Interpretation Comments Basophils (%) (Auto) (test code = 706-2) 0.3 0.0-1.0 [facility] HospitalIM GRANULOCYTES %2019-05-30 05:07:00* Test Item Value Reference Range Interpretation Comments IM GRANULOCYTES % (test code = IM GRANULOCYTES %) 0.3 0.0- 1.0 [facility] HospitalNeutrophils # (Auto)2019-05-30 05:07:00* Test Item Value Reference Range Interpretation Comments Neutrophils # (Auto) (test code = 751-8) 6.4 2.1-6.9 [facility] HospitalLymphocytes # (Auto)2019-05-30 05:07:00* Test Item Value Reference Range Interpretation Comments Lymphocytes # (Auto) (test code = 72997-8) 4.4 1.0-3.2 [facility] HospitalMonocytes # (Auto)2019-05-30 05:07:00* Test Item Value Reference Range Interpretation Comments Monocytes # (Auto) (test code = 742-7) 0.7 0.2-0.8 [facility] HospitalEosinophils # (Auto)2019-05-30 05:07:00* Test Item Value Reference Range Interpretation Comments Eosinophils # (Auto) (test code = 711-2) 0.0 0.0-0.4 [facility] HospitalBasophils # (Auto)2019-05-30 05:07:00* Test Item Value Reference Range Interpretation Comments Basophils # (Auto) (test code = 704-7) 0.0 0.0-0.1 [facility] HospitalAbsolute Immature Granulocyte (auto 2019-05-30 05:07:00* Test Item Value Reference Range Interpretation Comments Absolute Immature Granulocyte (auto (anurag t code = Absolute Immature Granulocyte (auto) 0.03 0-0.1 [facility] HospitalTotal Gmkvvrhni8860-22-64 05:49:00* Test Item Value Reference Range Interpretation Comments Total Bilirubin (test code = 1975-2) 0.8 0.2-1.2 [facility] HospitalAspartate Amino Transf (AST/SGOT) 2019-05-29 05:49:00* Test Item Value Reference Range Interpretation Comments Aspartate Amino Transf (AST/SGOT) (test code = Aspartate Amino Transf (AST/SGOT)) 33 5-34 [facility] HospitalAlanine Aminotransferase (ALT/SGPT) 2019-05-29 05:49:00* Test Item Value Reference Range Interpretation Comments Alanine Aminotransferase (ALT/SGPT) (test code = 1742-6) 33 0-55 [facility] HospitalTotal Akfeofu0581-26-22 05:49:00* Test Item Value Reference Range Interpretation Comments Total Protein (test code = 2885-2) 5.6 6.5-8.1 [facility] HospitalAlbumin2020-02-12 05:49:00* Test Item Value Reference Range Interpretation Comments Albumin (test code = 1751-7) 2.9 3.5-5.0 [facility] HospitalGlobulin2020-02-12 05:49:00* Test Item Value Reference Range Interpretation Comments Globulin (test code = 36481-4) 2.7 2.3-3.5 [facility] HospitalAlbumin/Globulin Vbhbq4959-46-31 05:49:00 * Test Item Value Reference Range Interpretation Comments Albumin/Globulin Ratio (test code = 1759-0) 1.1 0.8-2.0 [facility] HospitalAlkaline Bpdhzavdwwh9350-92-59 05:49:00* Test Item Value Reference Range Interpretation Comments Alkaline Phosphatase (test code = 6768-6) 104 40-150 [facility] HospitalAmmonia2020-02-11 11:23:00* Test Item Value Reference Range Interpretation Comments Ammonia (test code = 06716-1) 126 31-123 [facility] HospitalProthrombin Nysy6177-05-36 11:11:00* Test Item Value Reference Range Interpretation Comments Prothrombin Time (test code = 5902-2) 15.2 11.9-14.5 [facility] HospitalProthromb Time International Ratio 2019-05-28 11:11:00* Test Item Value Reference Range Interpretation Comments Prothromb Time International Ratio (test code = 6301-6) 1.13 Oral Anticoagulant Therapy INR Values:1. Low Intensity Therapy 1.5 - 2.02 . Moderate Intensity Therapy 2.0 - 3.03. High Intensity Therapy(1) 2.5 - 3. 54. High Intensity Therapy(2) 3.0 - 4.05. Panic Value INR > 5.0 [facility] HospitalPlatelet Chemxblc6684-09-35 21:34:00* Test Item Value Reference Range Interpretation Comments Platelet Estimate (test code = 17394-1) ADEQUATE [facility] HospitalPlatelet Morphology Ifphaoz6434-04-40 21:34:00* Test Item Value Reference Range Interpretation Comments Platelet Morphology Comment (test code = 21150-3) NORMAL [facility] HospitalHypochromasia2020-02-10 21:34:00* Test Item Value Reference Range Interpretation Comments Hypochromasia (test code = 728-6) SLIGHT [facility] HospitalRed Cell Morphology Rzvxjtl3676-61-54 21:34:00* Test Item Value Reference Range Interpretation Comments Red Cell Morphology Comment (test code = 6742-1) NORMAL [facility] HospitalIron Irnxa5194-70-86 20:22:00* Test Item Value Reference Range Interpretation Comments Iron Level (test code = 2498-4) 10 65-175 [facility] HospitalTotal Iron Binding Kpurolfm5524-34-08 20:22:00* Test Item Value Reference Range Interpretation Comments Total Iron Binding Capacity (test code = 2500-7) 568 261-4 78 [facility] HospitalPercent Iron Fgkbxzprcw8242-96-50 20:22:00* Test Item Value Reference Range Interpretation Comments Percent Iron Saturation (test code = 2502-3) 2 15-50 [facility] HospitalTransferrin2020-02-10 20:22:00* Test Item Value Reference Range Interpretation Comments Transferrin (test code = 3034-6) 406 174-364 [facility] HospitalActivated Partial Thromboplast Time 2019-05-27 20:19:00* Test Item Value Reference Range Interpretation Comments Activated Partial Thromboplast Time (test code = 47671-6) 33.7 23.8-35.5 [facility] HospitalEosinophils % (Manual)2019-05-23 13:38:00 * Test Item Value Reference Range Interpretation Comments Eosinophils % (Manual) (test code = 714-6) 4 0-7 [facility] HospitalCTA HPQV6444-92-09 14:49:00 [facility] [address] [address] Patient Name: CARLITO ROCK MR #: [id number] : 1940 Age/Sex: 78/M Req #: [id number] Adm Physician: LEOLA PONCE MD Ordered by: SARA OLIVAS MD Report #: [id number] Location: MED/SURG3 Room/Bed: [facility] Procedure: 0103-[address]/CTA NECK Exam Date: 04/19/19 Exam Time: 1630 REPORT STATUS: Signed EXAMINATION: CT angiogram of the alutiiq of Cid and neck with contrast CLINICAL HIST ORY: Possible stroke, weakness, left leg numbness. COMPARISON: Head CT 0 TECHNIQUE: The head and neck was scanned utilizing a multidetector helical scanner from the thoracic inlet to the vertex after the I.V contrast admini stration of 100 mL of Isovue-370. Multiplanar sagittal and coronal reconstruct ions were performed as well. For optimization of of anatomic evaluation, multi -planar reconstructions, maximum intensity projections, and advanced 3D off-li ne post-processing was obtained and performed on a dedicated stand-alone works tation under the direct supervision of the interpreting physician. Dose m odulation, iterative reconstruction, and/or weight based adjustment of the mA/ kV was utilized to reduce the radiation dose to as low as reasonably achievabl e. CT ANGIOGRAM OF THE CHITIMACHA OF CID FINDINGS: Atherosclerotic calcifi cation of the bilateral pattern of ICA. Otherwise the remaining internal carot id artery segments as well as the middle cerebral and anterior cerebral arteri es are normal in caliber. The vertebro-basilar circulation is normal. No vascu lar malformation or aneurysmal dilatation is seen. The draining venous struc tures are normal and patent. Anatomic variation: Anterior Communicating A rtery: Patent Posterior Communicating Arteries: Not well visualized Vertebra l arteries: Codominant CT ANGIOGRAM OF THE NECK FINDINGS: If present, stenosis of the carotid bulbs is measured based on NASCET criteria i.e area of maximum stenosis compared to the cervical ICA distal to the bulb. Calcified atherosclerotic changes at the origin of the right vertebral artery results in mild stenoses. The origin of the remaining vessels are patent bilaterally. Right Carotid Artery: Soft and calcified atherosclerotic plaque in the right carotid bifurcation and carotid bulb results in mild stenosis (less than 50%). Otherwise the common carotid, internal and external carotid arteries at the level of the neck are normal in caliber, and patent, no evidence of sten oses. Left carotid artery: Soft and calcified atherosclerotic plaque in the left carotid bifurcation and carotid bulb results in mild stenosis (less t giles 50%). Otherwise the common carotid, internal and external carotid arteries at the level of the neck are normal in caliber, and patent, no evidence of st enoses. Vertebral Arteries: Both are normal in morphology and caliber. Kemar th are codominant. No significant stenosis is seen. IMPRESSION: 1. No large vessel occlusion of the intracranial or neck vessels. 2. Mild stenos is of the bilateral carotid bulbs (less than 50%). 3. No vascular malformatio ns or aneurysmal dilatations. Signed by: Dr. Carolann Heath M.D. on 04/20/2019 3:01 PM Dictated By: CAROLANN HEATH MD 1501 Transcribed By: FISH on 04/20/19 1501 COPY TO: SARA OLIVAS MD CTA [id number] 14:49:00 [place] [address] Patient Name: CARLITO ROCK MR #: [id number] : 1940 Age/Sex: 78/M Req #: [id number] Adm Physician: LEOLA PONCE MD Ordered by: SARA OLIVAS MD Report #: [id number] Location: [facility] Room/Bed: [facility] Procedure: 0103-[address]/CTA BRAIN Exam Date: 04/19/19 Exam Time: 1630 REPORT STATUS: Signed EXAMINATION: CT angiogram of the alutiiq of Cid and neck with contrast CLINICAL HIS TORY: Possible stroke, weakness, left leg numbness. COMPARISON: Head CT 04/18/19 TECHNIQUE: The head and neck was scanned utilizing a multidetector helical scanner from the thoracic inlet to the vertex after the I.V contrast admin istration of 100 mL of Isovue-370. Multiplanar sagittal and coronal reconstruc tions were performed as well. For optimization of of anatomic evaluation, mult i-planar reconstructions, maximum intensity projections, and advanced 3D off-l ine post-processing was obtained and performed on a dedicated stand-alone work station under the direct supervision of the interpreting physician. Dose modulation, iterative reconstruction, and/or weight based adjustment of the mA /kV was utilized to reduce the radiation dose to as low as reasonably achievab le. CT ANGIOGRAM OF THE CHITIMACHA OF CID FINDINGS: Atherosclerotic calcif ication of the bilateral pattern of ICA. Otherwise the remaining internal ybarra tid artery segments as well as the middle cerebral and anterior cerebral arter ies are normal in caliber. The vertebro-basilar circulation is normal. No vasc ular malformation or aneurysmal dilatation is seen. The draining venous stru ctures are normal and patent. Anatomic variation: Anterior Communicating Artery: Patent Posterior Communicating Arteries: Not well visualized Vertebr al arteries: Codominant CT ANGIOGRAM OF THE NECK FINDINGS: If present, stenosis of the carotid bulbs is measured based on NASCET criteria i.e area of maximum stenosis compared to the cervical ICA distal to the bulb. Calcified atherosclerotic changes at the origin of the right vertebral artery results in mild stenoses. The origin of the remaining vessels are patent bilaterally. Right Carotid Artery: Soft and calcified atherosclerotic plaque in the right carotid bifurcation and carotid bulb results in mild stenosis (less than 50%). Otherwise the common carotid, internal and external carotid arteries at the level of the neck are normal in caliber, and patent, no evidence of mallory noses. Left carotid artery: Soft and calcified atherosclerotic plaque in the left carotid bifurcation and carotid bulb results in mild stenosis (less than 50%). Otherwise the common carotid, internal and external carotid arterie s at the level of the neck are normal in caliber, and patent, no evidence of s tenoses. Vertebral Arteries: Both are normal in morphology and caliber. B oth are codominant. No significant stenosis is seen. IMPRESSION: 1. No large vessel occlusion of the intracranial or neck vessels. 2. Mild steno sis of the bilateral carotid bulbs (less than 50%). 3. No vascular malformati ons or aneurysmal dilatations. Signed by: Dr. Carolann Heath M.D. on 04/20/2019 3:01 PM Dictated By: CAROLANN HEATH MD 1501 Transcribed By: FISH on 04/20/19 1501 COPY TO: SARA OLIVAS MD Vitamin B12 Ychnt4429-69-88 21:46:00* Test Item Value Reference Range Interpretation Comments Vitamin B12 Level (test code = 65713-7) 1037 213-816 [facility] Hospital[facility]ig[facility] Xlphc3201-86-06 21:02:00* Test Item Value Reference Range Interpretation Comments Triglycerides Level (test code = 2571-8) 101 0-149 [facility] HospitalCholesterol Qkjnt8406-30-58 21:02:00* Test Item Value Reference Range Interpretation Comments Cholesterol Level (test code = 2093-3) 196 0-199 Less than 200 mg/dL Low Rnfl185 - 239 mg/dL Borderline Svlh390 m g/dl and greater High Risk [facility] HospitalLDL Zuodurnxoxk1228-36-84 21:02:00* Test Item Value Reference Range Interpretation Comments LDL Cholesterol (test code = 2089-1) 101 60-130 [facility] HospitalHDL Yjavnurcymm6893-94-21 21:02:00* Test Item Value Reference Range Interpretation Comments HDL Cholesterol (test code = 2085-9) 75 40-60 [facility]Cholesterol/HDL Meqvh4368-98-33 21:02:00 * Test Item Value Reference Range Interpretation Comments Cholesterol/HDL Ratio (test code = 9830-1) 2.6 3.9-4.7 [facility] HospitalMRI BRAIN HH1512-09-76 16:59:00 [facility] [address] [place], [place] [address] Patient Name: CARLITO ROCK MR #: [id number] : 1940 Age/Sex: 78/M Req #: [id number] Adm Physician: LEOLA PONCE MD Ordered by: DEVANTE COLLINS DO Report #: [id number] Location: MED/SURG3 Room/Bed: 293-1 Procedure: MRI/MRI BRAIN WO Exam Date: Exam Time: REPORT STATUS: Signed History: Left leg weakness for one week Comparison studies: CT head 04/18/2019 Techniqu e: Sagittal T2; axial DWI, FLAIR, MPGR, T1, Coronal FLAIR. Intravenous cont rast: None Findings: Scalp: Normal in signal . No masses . Bone estuardo ow: Normal in signal intensity. Extra-axial: No masses or fluid collectio ns. Brain sulci: Mildly prominent. Ventricles: Mild compensatory dilatati on. No hydrocephalus. Parenchyma: 9 mm focus of diffusion restriction wit hin the right parietal kim radiata with associated T2/flair signal elevatio n is consistent with a acute lacunar infarction. No additional foci of diffusi on restriction. No evidence of hemorrhage or mass effect. Patchy T2/FLAIR hy perintensity within the periventricular white matter is consistent with mild c hronic microvascular ischemic changes. No masses or acute or chronic cortical ischemic insults. Suprasellar region: No abnormalities. Craniocervical ju nction: No abnormalities. Patent foramen magnum. No Chiari one malformation. Vessels: Normal flow-voids in the arteries and sinuses. IMPRESSION: Small (subcentimeter) acute lacunar infarct within the right parietal kim radiata. Chronic findings: 1. Mild chronic microvascular ischemic change s. 2. Mild global parenchymal volume loss. A preliminary report was gail tompkins by Neuroradiology fellow Dr. Keller at 5:08 PM on 04/18/2019. I have revie wed the images and agree with findings in the preliminary report. Signed by : Dr. Meche Dougherty M.D. on 04/18/2019 8:02 PM Dictated By: MECHE ANDRADE MD 01 Transcrib ed By: FISH on 04/18/192001 COPY TO: DEVANTE COLLINS DO B- Type Natriuretic Lwvygky4842-53-90 16:46:00* Test Item Value Reference Range Interpretation Comments B-Type Natriuretic Peptide (test code = 36274-3) 34.3 0-100 [facility] HospitalCreatine Kinase TQ8660-30-78 16:46:00* Test Item Value Reference Range Interpretation Comments Creatine Kinase MB (test code = 01650-3) 1.70 0-5.0 [facility] HospitalTroponin Q5252-11-35 16:46:00* Test Item Value Reference Range Interpretation Comments Troponin I (test code = ZIR4843) 0.059 0-0.300 [facility] HospitalCreatine Wyimom9188-15-48 15:53:00* Test Item Value Reference Range Interpretation Comments Creatine Kinase (test code = 2157-6) 50 30-200 [facility] HospitalCHE[facility] SINGLE (PORTABLE)2019-04-18 15:51:00 [place] [address] Patient Name: CARLITO ROCK MR #: [id number] : 1940 Age/Sex: 78/M Req #: [id number] Adm Physician: LEOLA PONCE MD Ordered by: LUCIA SMYTH IT SPECIALIST Report #: [id number] Location: [facility] Room/Bed: [place] [address] Procedure: 010004 2 DX/CHEST SINGLE (PORTABLE) Exam Date: Exam Time: REPORT STATUS: Signed EXAMINATI ON: CHEST SINGLE (PORTABLE) INDICATION: Left leg weakness COMPARI SON: Chest radiograph 12/19/2018 FINDINGS: LINES/TUBES:EKG leads ov erlie the chest. LUNGS:The lungs are well-inflated. No focal consolidation or pulmonary edema. Mild bibasilar subsegmental atelectasis. PLEURA:No pl eural effusion or pneumothorax. MEDIASTINUM:The cardiomediastinal silhouett e appears unchanged in size and shape. BONES/SOFT TISSUES:No acute osseou s injury. ABDOMEN:No free air under the diaphragm. IMPRESSION: M ild bibasilar subsegmental atelectasis. No focal pneumonia or pulmonary edema. Signed by: Stas Matt MD on 04/18/2019 3:52 PM Dictated By: STAS MATT MD 51 Transcribed By: Liliana VEGA on 04/18/191551 COPY TO: LUCIA SMYTH IT SPECIALIST CT BRAIN WO 2019-04-18 14:35:00 [place] [address] Patient Name: CARLITO ROCK MR #: [id number] : 1940 Age/Sex: 78/M Req #: [id number] Adm Physician: Ordered by: LUCIA SMYTH IT SPECIALIST Report #: [id number] Location: ER Room/Bed: Procedure: [id number] CT/CT BRAIN WO Exam Date: Exam Time: REPORT STATUS: Signed Exam: Head CT without c ontrast History: Possible stroke, fall, weakness, left leg numbness. Com parison studies: None Technique: Axial images were obtained from the sku ll base to the vertex. Coronal and sagittal images reconstructed from the axia l data. Dose modulation, iterative reconstruction, and/or weight based adjust ment of the mA/kV was utilized to reduce the radiation dose to as low as reaso nably achievable. Radiation dose: Total DLP: 832 mGy*cm. Estimate d effective dose: DLP x 0.015 Intravenous contrast: None Findings: Scalp: No abnormalities. Bones: No fractures, blastic or lytic lesions. B rain sulci: Mildly prominent. Ventricles: Moderate compensatory dilatation. No hydrocephalus. Extra-axial spaces: No masses, no fluid collection. Pare nchyma: No mass, acute hemorrhage or cortical insult. Small chronic-appearing lacunar infarct is present in the anterior right parietal kim radiata. Sellar/suprasellar region: No abnormalities. Craniocervical junction: Patent foramen magnum. No Chiari one malformation. Incidental findings: Bilate ral lens replacements related to previous cataract surgery. Atherosclerotic ca lcifications in the carotid siphons. IMPRESSION: 1. No acute abnorm alities. 2. Mild generalized parenchymal volume loss. 3. Small chronic-trista earing right parietal kim radiata lacunar infarct. Brain MRI may further evaluate if there remains persistent concern for acute ischemia. Signed by: Dr. Meliza Matias M.D. on 04/18/2019 2:54 PM Dictated By: MELIZA OLIVO MD 1438 Transcrib ed By: FISH on 04/18/19 8502 COPY TO: LUCIA SMYTH NP Blood Aheclax5561-58-57 10:24:00* Test Item Value Reference Range Interpretation Comments Blood Culture (test code = 58641332) NO GROWTH AFTER 5 DAYS, FINAL REPORT [facility] HospitalPoikilocytosis2019-09-05 08:37:00* Test Item Value Reference Range Interpretation Comments Poikilocytosis (test code = 779-9) MODERATE [facility] HospitalAnisocytosis2019-09-05 08:37:00* Test Item Value Reference Range Interpretation Comments Anisocytosis (test code = 702-1) SLIGHT [facility] HospitalOvalocytes2019-09-05 08:37:00* Test Item Value Reference Range Interpretation Comments Ovalocytes (test code = 774-0) FEW [facility] HospitalElliptocytes2019-09-05 08:37:00* Test Item Value Reference Range Interpretation Comments Elliptocytes (test code = 08208-0) SLIGHT [facility] HospitalClostridium Difficile Toxin A & B 2018-12-20 06:33:00* Test Item Value Reference Range Interpretation Comments Clostridium Difficile Toxin A & B (test code = 915571755) NEGATIVE NEGATIVE Testing on stool aspirate specimens is outside assembler trim claims since specime n type not validated on this assay.[facility] HospitalLipase 2018-12-20 06:09:00* Test Item Value Reference Range Interpretation Comments Lipase (test code = 3040-3) 25 8-78 [facility] HospitalBand Neutrophils %2018-12-19 19:42:00* Test Item Value Reference Range Interpretation Comments Band Neutrophils % (test code = 764-1) 1 [facility] HospitalBasophils % (Manual)2018-12-19 19:42:00* Test Item Value Reference Range Interpretation Comments Basophils % (Manual) (test code = 29650-8) 1 0-1.5 [facility] HospitalReactive Wyxkjncyrtx3116-08-83 19:42:00* Test Item Value Reference Range Interpretation Comments Reactive Lymphocytes (test code = 70699-3) 4 [facility] HospitalLactic Acid Esfdl8973-51-34 14:20:00* Test Item Value Reference Range Interpretation Comments Lactic Acid Level (test code = Lactic Acid Level) 16.5 4.5- 19.8 [facility] HospitalCT ABDOMEN/PELVIS A8030-24-54 12:00:00 [facility] [address] [place] [address] Patient Name: CARLITO ROCK MR #: [id number] : 1940 Age/Sex: 78/M Req #: [id number] Adm Physician: LEOLA PONCE MD Ordered by: SALLIE ANDRE MD, MD Report #: [id number] Location: [facility] Room/Bed: [facility]- Procedure: 0904-[address]/CT ABDOMEN/PELVIS W Exam Date: 12/19/18 Exam Time: 1100 REPORT STATUS: Signed CT of the abdomen and pelvis, with contrast. History: Abdominal pain, nausea. Comparison: CT abdomen/pelvis with contrast from 12/05/2018. Te chnique: Multidetector CT scanning of the abdomen and pelvis was performed fro m the level of the lung bases to the inferior pubic rami after intravenous and oral administration of contrast. Coronal and sagittal multiplanar reformatio ns were obtained. RADIATION DOSE: Total DLP: 442.21 mGy*cm Dose modulation, iterative reconstruction, and/or weight based adjustment of the mA/kV was utilized to reduce the radiation dose to as low as reasonably ac hievable. FINDINGS: The visualized lungs are remarkable for bibasilar at electasis. The imaged portion of the heart demonstrates no significant abnorma lities. The liver is normal in size and attenuation without evidence for fo connor abnormality. The gallbladder is unremarkable. There is no biliary ductal dilatation. The portal venous system, SMV, and splenic vein are patent. Again noted are esophageal varices, similar to the prior examination. The stomac h, pancreas, and bilateral adrenal glands are unremarkable. The spleen appears mildly enlarged, similar to the prior examination. The kidneys are normal in size and location concentrate contrast material properly. There is no evide nce for hydronephrosis. The ureters are normal in caliber. The urinary bladder demonstrates no significant abnormalities. The prostate is unremarkable. The abdominal aorta is normal in caliber with atherosclerotic calcifications within course and branch vessels. The IVC is unremarkable. Please note eval uation the bowel is limited without the use of enteric contrast material. The visualized small and large bowel demonstrate no evidence of obstruction or inf lammation. The appendix is visualized and appears unremarkable. There is no as cites or intraperitoneal free air. No abnormally enlarged lymph nodes are iden tified within the abdomen or pelvis. The osseous structures demonstrate sta ble degenerative changes without evidence for acute fracture or destructive pr ocess. The extraperitoneal soft tissues are unremarkable. IMPRESSION: No acute abdominopelvic process or significant interval change identified f rom 12/05/2018. Again identified are esophageal varices and mild splenomeg miranda which can be seen in the setting of portal hypertension/hepatic dysfunctio n. Signed by: Dr. Rodolfo Hodge MD on 12/19/2018 12:08 PM Dictated By: RODOLFO HODGE MD 1208 Tr anscribed By: FISH on 12/19/18 1208 COPY TO: SALLIE ANDRE Magnesium Safhu2119-23-76 11:09:00* Test Item Value Reference Range Interpretation Comments Magnesium Level (test code = 66245-7) 1.7 1.3-2.1 [facility] HospitalUrine UFT6665-34-17 09:59:00* Test Item Value Reference Range Interpretation Comments Urine WBC (test code = 5821-4) 6-10 0-5 [facility] HospitalU[facility] JIL5825-00-78 09:59:00* Test Item Value Reference Range Interpretation Comments Urine RBC (test code = 74034-9) 0-5 0-5 [facility] Hospital[facility] Lebaqxpj6229-59-16 09:59:00* Test Item Value Reference Range Interpretation Comments Urine Bacteria (test code = 91609-2) MODERATE NONE [facility] HospitalU[facility] Epithelial Fvffj5658-25-53 09:59:00 * Test Item Value Reference Range Interpretation Comments Urine Epithelial Cells (test code = 66913-1) MODERATE NONE [facility] HospitalU[facility] Nzjmh8920-88-23 09:59:00* Test Item Value Reference Range Interpretation Comments Urine Mucus (test code = 8247-9) MANY RARE [facility] HospitalU[facility] Hmssr8709-45-90 09:49:00* Test Item Value Reference Range Interpretation Comments Urine Color (test code = 5778-6) ORANGE YELLOW [facility] Hospital[facility] Gptsojp9643-30-89 09:49:00* Test Item Value Reference Range Interpretation Comments Urine Clarity (test code = 07937-6) SL CLOUDY CLEAR [facility] HospitalU[facility] Specific Vatekdp0779-91-21 09:49:00 * Test Item Value Reference Range Interpretation Comments Urine Specific [place] (test code = 5811-5) >=1.030 1.010-1.02 5 [facility] HospitalU[facility] xA6999-03-01 09:49:00* Test Item Value Reference Range Interpretation Comments Urine pH (test code = 69513-1) 6 5-7 [facility] Leukocyte Qoclgluw8000-86-44 09:49:00* Test Item Value Reference Range Interpretation Comments Urine Leukocyte Esterase (test code = 27520-8) NEGATIVE NEGATIV E [facility] Xkavnoj4482-09-96 09:49:00* Test Item Value Reference Range Interpretation Comments Urine Nitrite (test code = 25967-4) NEGATIVE NEGATIVE [facility] Nyiblys3474-87-87 09:49:00* Test Item Value Reference Range Interpretation Comments Urine Protein (test code = 88531-2) 1+ NEGATIVE [facility] HospitalU[facility] Glucose (UA)2018-12-19 09:49:00* Test Item Value Reference Range Interpretation Comments Urine Glucose (UA) (test code = 61957-6) NEGATIVE NEGATIVE [facility] Iogzaoy1086-28-37 09:49:00* Test Item Value Reference Range Interpretation Comments Urine Ketones (test code = 11237-6) 1+ NEGATIVE [facility] Kwlwapcxxmyw7242-53-94 09:49:00* Test Item Value Reference Range Interpretation Comments Urine Urobilinogen (test code = 47730-3) 0.2 0.2-1 [facility] Myievkuza8366-26-44 09:49:00* Test Item Value Reference Range Interpretation Comments Urine Bilirubin (test code = 1977-8) NEGATIVE NEGATIVE [facility] Vayia5219-55-69 09:49:00* Test Item Value Reference Range Interpretation Comments Urine Blood (test code = 15744-5) NEGATIVE NEGATIVE [facility]2018-12-19 09:09:00 [facility] [address] [place] [address] Patient Name: CARLITO ROCK MR #: [id number] : 1940 Age/Sex: 78/M Req #: [id number] Adm Physician: Ordered by: SALLIE ANDRE MD, MD Report #: [id number] Location: ER Room/Bed: Procedure: 0904-002 4 DX/CHEST SINGLE (PORTABLE) Exam Date: 12/19/18 Exa m Time: 851 REPORT STATUS: Signed EXAM: CHEST SINGLE (PORTABLE) DATE: 12/19/2018 8:45 AM INDICATION: Diarrhea, vomiting COMPARISON: None FINDINGS: The trachea is midl ine. The lungs are symmetrically expanded without evidence for focal consolida tion, pneumothorax, or significant pleural effusion. The cardiomediastinal silhouette and pulmonary vasculature are within normal limits. No acute osseou s abnormality is identified. IMPRESSION: No acute cardiopulmonary p rocess identified. Signed by: Dr. Rodolfo Hodge MD on 12/19/2018 9:10 AM Dictated By: RODOLFO HODGE MD 9 COPY TO: SALLIE ANDRE Afjhnrpgphwv3095-12-71 07:52:00* Test Item Value Reference Range Interpretation Comments Microcytosis (test code = 741-9) SLIGHT [facility] Center[facility]rocytosis2019-08-24 07:52:00* Test Item Value Reference Range Interpretation Comments Macrocytosis (test code = 738-5) SLIGHT [facility] Dallastool Occult Sropw1512-06-29 10:48:00* Test Item Value Reference Range Interpretation Comments Stool Occult Blood (test code = 2335-8) NEGATIVE NEGATIVE [facility]/PELVIS Q6975-25-20 01:19:00 [facility] [address] [place] [address] Patient Name: CARLITO ROCK MR #: [id number] : 1940 Age/Sex: 78/M Req #: [id number] Adm Physician: LEOLA PONCE MD Ordered by: JUAN RUIZ MD Report #: [id number] Location: [facility] Room/Bed: [place] [address] Procedure: 5627-3900 CT/ CT ABDOMEN/PELVIS W Exam Date: Exam Time: REPORT STATUS: Signed EXAM: CT Abdomen a nd Pelvis WITH contrast INDICATION: Liver cirrhosis, portal hypertension , weakness vomiting COMPARISON: Abdominal CT 10/30/2017 TECHNIQUE: Abdomen and pelvis were scanned utilizing a multidetector helical scanner from the lung ba se to the pubic symphysis after administration of IV contrast. Coronal and sag ittal reformations were obtained. Routine protocol was performed. Scan was per formed when during portal venous phase. IV CONTRAST: 100 mL of Isovue 370 ORAL CONTRAST: None COMPLICATIONS: None RADIAT ION DOSE: Total DLP: 434 mGy*cm Estimated effective dose: (DLP x 0 .015 x size factor) mSv CTDIvol has been reviewed. It is below the limits set by the Radiation Protocol Committee (RPC). Dose modulation, iterat inez reconstruction, and/or weight based adjustment of the mA/kV was utilized t o reduce the radiation dose to as low as reasonably achievable. FINDINGS : LINES and TUBES: None. LOWER THORAX: There is bibasilar atelectasis . HEPATOBILIARY: Widened hepatic fissure. No focal hepatic lesions. No nevin iary ductal dilation. GALLBLADDER: A small radiopaque gallstone in the g allbladder neck. No wall thickening. SPLEEN: Mild splenomegaly, measures up to 13 cm in maximum dimension. PANCREAS: No focal masses or ductal dil atation. ADRENALS: No adrenal nodules KIDNEYS/URETERS: Kidneys e nhance symmetrically. No hydronephrosis. No cystic or solid mass lesions. No stones. GI TRACT: No abnormal distention, wall thickening, or evidence of bowel obstruction. There are diverticula within the colon without evidence of diverticulitis. Appendix is normal. PELVIC ORGANS/BLADDER: Circumferent ial bladder wall thickening. Mild prostatomegaly. LYMPH NODES: No lymphad enopathy. VESSELS: Esophageal varices. Calcifications of the abdominal aort a and major branches. Main portal vein measures 1.5 cm in diameter, slightly d ilated. PERITONEUM / RETROPERITONEUM: No free air or fluid. BONES: The re are degenerative changes in the lumbar spine. SOFT TISSUES: Rectus diast ases. IMPRESSION: 1. Findings of hepatic cirrhosis with portal hypertension including gastroesophageal varices and mild splenomegaly. 2. Circumferential urinary bladder wall thickening, correlate for cystitis. Signed by: Buzz Goff DO on 12/06/2018 1:29 AM Dictated By: UBZZ GOFF DO 8 Transcribed By: FISH on 12/06/18128 COPY TO: JUAN RUIZ MD Yylbcl6837-75-60 20:32:00* Test Item Value Reference Range Interpretation Comments Dohle Bodies (test code = 7792-5) [facility] METABOLIC PLGHW9703-82-64 12:59:00 * Test Item Value Reference Range Interpretation Comments SODIUM (test code = NA) 140 mmol/L 136-145 N POTASSIUM (test code = K) 4.0 mmol/L 3.5-5.1 N CHLORIDE (test code = CL) 104.0 mmol/L 98-107 N CARBON DIOXIDE (test code = CO2) 25.0 mmol/L 21-32 N ANION GAP (test code = GAP) 15.0 10-20 N GLUCOSE (test code = GLU) 239 mg/dL 74-106 H BLOOD UREA NITROGEN (test code = BUN) 20 mg/dL 7-18 H GLOMERULAR FILTRATION RATE (test code = GFR) > 60 mL/min >=60 Estimated GFR by using Modified MDRD formula.Chronic kidney disease is defined as either kidney damageor GFR <60 mL/min/1.73 m2 for >3 months. CREATININE (test code = CREAT) 1.00 mg/dL 0.7-1.3 N BUN/CREATININE RATIO (test code = BUN/CREA) 19.2 10-20 N CALCIUM (test code = CA) 8.8 mg/dL 8.5-10.1 N HEPATIC FUNCTION [id number] 12:59:00* Test Item Value Reference Range Interpretation Comments TOTAL PROTEIN (test code = PROT) 6.7 gram/dL 6.4-8.2 N ALBUMIN (test code = ALB) 3.5 g/dL 3.4-5.0 N GLOBULIN (test code = GLOB) 3.2 gram/dL 2.7-4.2 N ALBUMIN/GLOBULIN RATIO (test code = A/G) 1.1 0.75-1.50 N BILIRUBIN TOTAL (test code = BILT) 0.90 mg/dL 0.0-1.0 N BILIRUBIN DIRECT (test code = BILD) 0.27 mg/dL 0.0-0.20 H SGOT/AST (test code = AST) 28 IUnit/L 15-37 N SGPT/ALT (test code = ALT) 27 IUnit/L 12-78 N ALKALINE PHOSPHATASE TOTAL (test code = ALKP) 106 IUnit/L 45-117 N Note change in reference range due to change in reagent. [id number] 12:59:00* Test Item Value Reference Range Interpretation Comments TROPONIN-I (test code = TROPI) <0.015 ng/mL 0-0.045 N [id number] 12:55:00* Test Item Value Reference Range Interpretation Comments AMMONIA (test code = AMM) 21 umol/L 11-32 N BASIC METABOLIC [id number] 12:48:00* Test Item Value Reference Range Interpretation Comments SODIUM (test code = NA) 140 mmol/L 136-145 N POTASSIUM (test code = K) 4.0 mmol/L 3.5-5.1 N CHLORIDE (test code = CL) 104.0 mmol/L 98-107 N CARBON DIOXIDE (test code = CO2) mmol/L 21-32 ANION GAP (test code = GAP) 10-20 GLUCOSE (test code = GLU) mg/dL 74-106 BLOOD UREA NITROGEN (test code = BUN) mg/dL 7-18 GLOMERULAR FILTRATION RATE (test code = GFR) mL/min >=60 CREATININE (test code = CREAT) mg/dL 0.7-1.3 BUN/CREATININE RATIO (test code = BUN/CREA) 10-20 CALCIUM (test code = CA) mg/dL 8.5-10.1 HEPATIC FUNCTION [id number] 12:48:00* Test Item Value Reference Range Interpretation Comments TOTAL PROTEIN (test code = PROT) gram/dL 6.4-8.2 ALBUMIN (test code = ALB) g/dL 3.4-5.0 GLOBULIN (test code = GLOB) gram/dL 2.7-4.2 ALBUMIN/GLOBULIN RATIO (test code = A/G) 0.75-1.50 BILIRUBIN TOTAL (test code = BILT) mg/dL 0.0-1.0 BILIRUBIN DIRECT (test code = BILD) mg/dL 0.0-0.20 SGOT/AST (test code = AST) IUnit/L 15-37 SGPT/ALT (test code = ALT) IUnit/L 12-78 ALKALINE PHOSPHATASE TOTAL (test code = ALKP) IUnit/L 45-117 [id number] 12:48:00* Test Item Value Reference Range Interpretation Comments TROPONIN-I (test code = TROPI) ng/mL 0-0.045 CBC W/O [id number] 12:46:00* Test Item Value Reference Range Interpretation Comments WHITE BLOOD CELL (test code = WBC) 10.6 K/mm3 4.5-12.5 N RED BLOOD CELL (test code = RBC) 3.98 mill/mm3 4.0-5.8 L HEMOGLOBIN (test code = HGB) 8.7 gram/dL 13.0-17.5 L HEMATOCRIT (test code = HCT) 29.6 % 42.0-52.0 L MEAN CELL VOLUME (test code = MCV) 74.4 fL 80-98 L MEAN CELL HGB (test code = MCH) 21.9 picogram 27.0-33.0 L MEAN CELL HGB CONCETRATION (test code = MCHC) 29.4 gram/dL 33.0-36. 0 L RED CELL DISTRIBUTION WIDTH (test code = RDW) 18.7 % 11.6-16. 2 H PLATELET COUNT (test code = PLT) 218 K/mm3 150-450 N MEAN PLATELET VOLUME (test code = MPV) 10.6 fL 6.7-11.0 N - XR CHEST 1 [id number] 11:02:00 FAX: Giuliana Ames [phone] [place]: St: [facility] FAX: Mulugeta Hadley DO Name: CARLITO ROCK [facility] [place] : 1940 Age/S: 78/M [address] [facility] Unit #: [id number] Loc: [place] [address] Phys: Mulugeta Hadley DO Acct: [id number] Dis Date: Status: REG ER PHONE #: [phone] Exam Date: 12/04/2018 1051 FAX #: [phone] Reason: Altered Mental Status EXAMS: CPT CODE: [id number] XR CHEST 1 V 44866 HISTORY: Confusion. COMPARISON: X-ray from March 15, 2005. No acute infiltrates, effusion or congestion is noted. Hyperinflation. The cardiac and mediastinal silhouette are within normal limits. IMPRESSION: No acute infiltrates, effusion or congestion. at 1102 Reported and signed by: Alphonso Gonzalez M.D. CC: Giuliana Miguel MD; Mulugeta Hadley DO Technologist: HENRY CASTILLO JR Trnscrd Date/Time/By: 12/04/2018 (1108) : By: [email or web address] Orig Print D/T: S: 12/04/2018 (6452) PAGE 1 Signed Report URINALYSIS [id number] 11:01:00* Test Item Value Reference Range Interpretation Comments UA COLOR (test code = COLU) YELLOW YELLOW UA APPEARANCE (test code = APPU) CLEAR CLEAR UA GLUCOSE DIPSTICK (test code = DGLUU) >1000 (4+) mg/dL NEGATIVE UA BILIRUBIN DIPSTICK (test code = BILU) NEGATIVE mg/dL NEGATIVE UA KETONE DIPSTICK (test code = KETU) 40 (2+) mg/dL NEGATIVE A UA SPECIFIC GRAVITY (test code = SGU) 1.033 1.001-1.035 UA BLOOD DIPSTICK (test code = GEORGINA) Negative mg/dL NEGATIVE UA PH DIPSTICK (test code = NARESH) 5.5 5.0-8.0 UA PROTEIN DIPSTICK (test code = PROU) 20 (Trace) mg/dL NEGATIVE A UA UROBILINIOGEN DIPSTICK (test code = URO) Normal mg/dL NEGATIVE UA NITRITE DIPSTICK (test code = AMY) NEGATIVE NEGATIVE UA LEUKOCYTE ESTERASE W REFLEX (test code = LEUUR) NEGATIVE Uriel/uL NEGATIVE UA WBC (test code = WBCU) 0-5 per HPF 0-5 UA RBC (test code = RBCU) 0-2 #/HPF 0-5 UA EPITHELIAL CELLS (test code = EPIU) FEW per HPF FEW UA BACTERIA (test code = BACU) FEW #/HPF NONE UA MUCUS (test code = MUCU) FEW #/LPF FEW Urine Source? Clean CatchCTA ABD/PEL/RUN [id number] 07:45:00 [place] [address] Patient Name: CARLITO ROCK MR #: [id number] : 1940 Age/Sex: 77/M Req #: [id number] Adm Physician: Ordered by: LEOLA PONCE MD Report #: [id number] Location: CT Room/Bed: Procedure: [id number] CT/CTA ABD/PEL/RUN OFF Exam Date: 10/30/17 Exam [...] celiac, S MA, and JASMIN. Patent bilateral FOOD SALES CLERK, SFA, and popliteal arteries. Patent nevin ateral [...] LEOLA PONCE MD MRI SHOULDER LEFT WO [place] [address] Patient Name: CARLITO ROCK MR #: [id number] : 1940 Age/Sex: 76/M Req #: [id number] Adm Physician: Ordered by: GOSIA RIVAS MD Report #: [id number] Location: MRI Room/Bed: Procedure: [id number] MRI/MRI SHOULDER L EFT WO Exam Date: [...] FULLER MD 153 Transcribed By: FISH on 03/03/17 153 COPY TO: GOSIA RIVAS MD SHOULDER LEFT COMPLETE [place] [address] Patient Name: CARLITO ROCK MR #: [id number] : 1940 Age/Sex: 76/M Req #: [id number] Adm Physician: Ordered by: GOSIA RIVAS MD Report #: [id number] Location: [facility] Room/Bed: Procedure: [id number] DX/SHOULDER LEFT C OMPLETE Exam Date: 01/20/17 Exam Time: 1210 RE PORT STATUS: Signed PROCEDURE: SHOULDER LEFT COMPLETE TECHNIQUE: Marketing Strategy Lead al and external rotation AP views left [...] By: CLAUDETTE on 01/20/17 1242 COPY TO: GOSIA RIVAS MD
== END | disposition home or self-care (01) ==
LOC: OR 08:42
PROVIDERS: ATTEND Internal Medicine Gastroenterology
DX: K70.30 Alcoholic cirrhosis of liver without ascites (principal); K29.00 Acute gastritis without bleeding; I85.10 Secondary esophageal varices without bleeding; K29.50 Unspecified chronic gastritis without bleeding; K76.6 Portal hypertension; K31.89 Other diseases of stomach and duodenum; K44.9 Diaphragmatic hernia without obstruction or gangrene; E11.9 Type 2 diabetes mellitus without complications; Z86.010 Personal history of colon polyps; I10 Essential (primary) hypertension; Z71.3 Dietary counseling and surveillance; E66.3 Overweight; I69.354 Hemiplegia and hemiparesis following cerebral infarction affecting left non-dominant side; I49.1 Atrial premature depolarization; Z01.812 Encounter for preprocedural laboratory examination; Z11.59 Encounter for screening for other viral diseases; Z79.84 Long term (current) use of oral hypoglycemic drugs; Z79.02 Long term (current) use of antithrombotics/antiplatelets; Z79.4 Long term (current) use of insulin; Z68.25 Body mass index [BMI] 25.0-25.9, adult; Z87.891 Personal history of nicotine dependence
CPT/HCPCS: 36415 ×2; 43239; 43244; 80053; 82948; 85025; 85610; 85730; 87635; J2704; J3010; 43255; J1817

== ENCOUNTER → 2019-11-15 | Outpatient (RCR) | payer MEDICARE ==
[~2019-11-15] MED LIST changes: -FENTANYL CITRATE/PF 100MCG/2 ML INJ ONE; -INSULIN REGULAR, HUMAN 100 UNIT/1 ML 3ML VIAL ONE; -PROPOFOL IV EMULSION 10 MG/ML 20 ML VIAL ONE
== END ==
LOC: PT 11-08 10:42
PROVIDERS: ATTEND Family Medicine
DX: I69.341 Monoplegia of lower limb following cerebral infarction affecting right dominant side (principal); R26.81 Unsteadiness on feet; M62.81 Muscle weakness (generalized)

== ENCOUNTER 2019-11-29 14:58 | Outpatient (RCR) | payer MEDICARE | END 2019-12-16 | LOC: PT 14:58 | PROVIDERS: ATTEND Family Medicine | DX: I69.342 Monoplegia of lower limb following cerebral infarction affecting left dominant side (principal); R26.81 Unsteadiness on feet; M62.81 Muscle weakness (generalized) ==

== ENCOUNTER 2020-02-01 10:50 | Observation (INO) | payer MEDICARE ==
[~2020-02-01] VITALS: Ht 177.8 cm; Wt 81.2 kg
[2020-02-01] VITALS (7 sets, daily range): BP systolic 125–142; BP diastolic 49–58
[2020-02-01] MEDS ORDERED: ONDANSETRON HCL INJ 2MG/ML 2ML 2 MG/ML VIAL IV ONE (10:52)
[2020-02-01] MEDS ORDERED: PANTOPRAZOLE 40 MG 10ML VIAL IV ONE (10:52)
[2020-02-01] MEDS ORDERED: FUROSEMIDE INJ 10 MG/ML 2 ML VIAL IV PRN (11:00)
[2020-02-01] MEDS ORDERED: SODIUM CHLORIDE 0.9% 250ML 250 ML IV ONE (11:00)
[2020-02-01 11:54] LABS: BASOPHILS % 0.6 % (0.0-1.0); EOSINOPHILS # (AUTO) 0.7 (0.0-0.4); EOSINOPHILS % 15.1 % (0.0-6.0); LYMPHOCYTES % 41.9 % (18.0-39.1); MEAN CORPUSCULAR HGB CONC 29.3 g/dL (31-35); MEAN CORPUSCULAR VOLUME 85.4 fL (81-99); MONOCYTES # (AUTO) 0.4 (0.2-0.8); MONOCYTES % 9.4 % (4.4-11.3); NEUTROPHILS # (AUTO) 1.6 (2.1-6.9); PLATELET COUNT 141 x10e3/uL (140-360); RED BLOOD COUNT 2.12 x10e6/uL (4.3-5.7); RED CELL DISTRIBUTION WIDTH 14.8 % (11.7-14.4)
[2020-02-01] MEDS ORDERED: ONDANSETRON HCL INJ 2MG/ML 2ML 2 MG/ML VIAL IV PRN (12:00)
[2020-02-01 12:07] LABS: INR 1.04; PROTHROMBIN TIME 14.1 seconds (11.9-14.5)
[2020-02-01 12:08] LABS: HEMATOCRIT 18.1 % (38.2-49.6); HEMOGLOBIN 5.3 g/dL (14.0-18.0); PARTIAL THROMBOPLASTIN TIME 27.5 seconds (23.8-35.5)
[2020-02-01 12:15] LABS: ALANINE AMINOTRANSFERASE 30 IU/L (0-55); ALBUMIN 2.9 g/dL (3.5-5.0); ALBUMIN/GLOBULIN RATIO 1.1 (0.8-2.0); ALKALINE PHOSPHATASE 89 IU/L (40-150); ANION GAP 12.7 mmol/L (8-16); BLOOD UREA NITROGEN 12 mg/dL (7-26); BUN/CREATININE RATIO 12 (6-25); CALCIUM 8.6 mg/dL (8.4-10.2); CARBON DIOXIDE 23 mmol/L (22-29); CHLORIDE 107 mmol/L (98-107); CREATINE KINASE 73 IU/L (30-200); CREATININE, SERUM 0.99 mg/dL (0.72-1.25); EST GLOMERULAR FILTRATION RATE > 60 ML/MIN (60-); GLUCOSE 220 mg/dL (74-118); POTASSIUM 4.7 mmol/L (3.5-5.1); SODIUM 138 mmol/L (136-145)
--- NOTE | 2020-02-01 12:15 | Emergency Department Note ---
History of Present Illnes History of Present Illness Chief Complaint: General Medicine Complaints History of Present Illness This is a 79 year old male HAD LABS DRAWN ON MONDAY AND WAS TOLD TO COME TO THE ER FOR A BLOOD TRANSFUSION. C/O WEAKNESS, FATIGUE Historian: Patient Arrival Mode: Car Additional Treatment POULTRY OFFAL ICER: N/A Molder Wax Ball Required: No Onset (how long ago): week(s) Location: GENERALIZED Quality: WEAK, FATIGUE Severity: mild Onset quality: gradual Timing of current episode: constant Progression: worsening Chronicity: new Context: Denies recent illness Relieving factors: none Exacerbating factors: none Associated symptoms: Reports denies other symptoms, Reports malaise, Reports weakness Past Medical/Family History Physician Review I have reviewed the patient's past medical and family history. Any updates have been documented here. Past Medical History Recent Fever: No Clinical Suspicion of Infectio: No New/Unexplained Change in Ment: No Past Medical History: Hypertension, Diabetes, Hepatitis C, Liver Disease, Anemia Other Medical History: CIHRROSIS HEPATIC ENCEPHALOPATHY GI BLEEDS Past Surgical History: Cataract Removal Other Surgery: cataracs; Social History Smoking Cessation: Never Smoker Counseling Performed: No Alcohol Use: None Any Illegal Drug Use: No TB Exposure/Symptoms: No Physically hurt or threatened: No Family History Family history of heart diseas: No Other Last Tetanus: 3 years Any Pre-Existing Lines (PICC,: No Review of Systems Review of Systems Constitutional: Reports malaise, Reports weakness EENTM: Reports no symptoms Cardiovascular: Reports no symptoms Respiratory: Reports no symptoms Gastrointestinal: Reports no symptoms Genitourinary: Reports no symptoms Musculoskeletal: Reports no symptoms Integumentary: Reports no symptoms Neurological: Reports as per HPI, Reports weakness Psychological: Reports no symptoms Endocrine: Reports no symptoms Hematological/Lymphatic: Reports no symptoms Physical Exam Related Data Allergies: Coded Allergies: No Known Allergies (Unverified , 04/02/15) Triage Vital Signs Vital Signs Date Time Temp Pulse Resp B/P (MAP) Pulse Ox O2 Delivery O2 Flow Rate FiO2 02/01/20 11:08 98.3 82 16 153/56 100 Room Air Vital signs reviewed: Yes Physical Exam CONSTITUTIONAL Constitutional: Present well-developed, Present well-nourished HENT HENT: Present normocephalic, Present atraumatic, Present oropharynx clear/moist, Present nose normal HENT L/R: Present left ext ear normal, Present right ext ear normal EYES Eyes: Reports PERRL, Reports conjunctivae normal NECK Neck: Present ROM normal PULMONARY Pulmonary: Present effort normal, Present breath sounds normal CARDIOVASCULAR Cardiovascular: Present regular rhythm, Present heart sounds normal, Present capillary refill normal, Present normal rate GASTROINTESTINAL Abdominal: Present soft, Present nontender, Present bowel sounds normal GENITOURINARY Genitourinary: Present exam deferred SKIN Skin: Present warm, Present dry MUSCULOSKELETAL Musculoskeletal: Present ROM normal NEUROLOGICAL Neurological: Present alert, Present oriented x 3, Present weakness (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) PSYCHOLOGICAL Psychological: Present mood/affect normal, Present judgement normal Results Laboratory Result Diagram: 02/01/20 1145 Laboratory Laboratory Tests Test 02/01/20 11:45 White Blood Count 4.70 x10e3/uL (4.8-10.8) Red Blood Count 2.12 x10e6/uL (4.3-5.7) Hemoglobin 5.3 g/dL (14.0-18.0) Hematocrit 18.1 % (38.2-49.6) Mean Corpuscular Volume 85.4 fL (81-99) Mean Corpuscular Hemoglobin 25.0 pg (28-32) Mean Corpuscular Hemoglobin Concent 29.3 g/dL (31-35) Red Cell Distribution Width 14.8 % (11.7-14.4) Platelet Count 141 x10e3/uL (140-360) Neutrophils (%) (Auto) 33.0 % (38.7-80.0) Lymphocytes (%) (Auto) 41.9 % (18.0-39.1) Monocytes (%) (Auto) 9.4 % (4.4-11.3) Eosinophils (%) (Auto) 15.1 % (0.0-6.0) Basophils (%) (Auto) 0.6 % (0.0-1.0) Neutrophils # (Auto) 1.6 (2.1-6.9) Lymphocytes # (Auto) 2.0 (1.0-3.2) Monocytes # (Auto) 0.4 (0.2-0.8) Eosinophils # (Auto) 0.7 (0.0-0.4) Basophils # (Auto) 0.0 (0.0-0.1) Absolute Immature Granulocyte (auto 0 x10e3/uL (0-0.1) Prothrombin Time 14.1 seconds (11.9-14.5) Prothromb Time International Ratio 1.04 Activated Partial Thromboplast Time 27.5 seconds (23.8-35.5) Lab results reviewed: Yes Imaging Imaging results reviewed: Yes Procedures 12 Lead ECG Interpretation ECG Interpretation : ECG: ECG 1 Molder Wax Ball: Interpreted by ED physician Date: Feb 11, 2020 Time: 11:56 Rhythm: sinus rhythm Rate: normal BPM: 76 QRS axis: normal ST segments normal: Yes T waves normal: Yes Clinical Impression: non-specific ECG Additional Comments poor RWP Assessment & Plan Medical Decision Making MDM weak, fatigue, told he needed to come for a blood transfusion - check cbc, chem, T&C, cxr, ecg, cardiacs - eval for anemia, renal failure, stemi/nstemi Reassessment Reassessment ADMIT TO DR PONCE Assessment & Plan Final Impression: (1) Anemia Depart Disposition: ADMITTED Last Vital Signs Date Time Temp Pulse Resp B/P (MAP) Pulse Ox O2 Delivery O2 Flow Rate FiO2 02/01/20 11:08 98.3 82 16 153/56 100 Room Air Home Meds Reported Medications Simvastatin (SIMVASTATIN) 40 Mg Tablet, 40 MG PO 2100, #30 TAB 02/01/20 Insulin Aspart (NOVOLOG) 100 Units/1 Ml Inj, 30 UNITS SC BIDWM 05/27/19 Multivitamin (MULTI-VITAMIN DAILY) 1 Each Tablet 04/18/19 Venlafaxine Hcl (VENLAFAXINE HCL) 75 Mg Tab, 75 MG PO DAILY, #30 TAB 04/02/15 Metformin Hcl (METFORMIN HCL) 500 Mg Tablet, 1000 MG PO BID, #60 TAB 04/02/15 Medications in the ED Pantoprazole Sodium 40 mg ONCE ONCE IV Last administered on 02/01/20at 12:09; Admin Dose 40 MG; Start 02/01/20 at 10:52; Stop 02/01/20 at 10:59; Status DC Ondansetron HCl 4 mg ONCE ONCE IV ; Start 02/01/20 at 10:52; Stop 02/01/20 at 10:59; Status DC Sodium Chloride 250 ml @ 0 mls/hr ONCE ONCE IV ; Start 02/01/20 at 11:00; Stop 02/01/20 at 11:01; Status DC Furosemide 20 mg UD PRN IV SHORTNESS OF BREATH; Start 02/01/20 at 11:00; Stop 03/02/20 at 10:59 Ondansetron HCl 4 mg Q4H PRN IV NAUSEA AND VOMITING; Start 02/01/20 at 12:00; Stop 03/02/20 at 11:59 Sodium Chloride 1,000 ml @ 75 mls/hr [id number] IV ; Start 02/01/20 at 12:00; Stop 03/02/20 at 11:59 DERRELL VILCHIS MD Feb 01, 2020 12:15
--- OUTSIDE RECORDS SUMMARY | 2020-02-01 12:56 | XMS REPORT | Continuity of Care Document ---
Author Author Estefany Sunset Stadius CARLITO Hernandez Organization [employer] Address Unknown Phone Unavailable Care Team Providers Care Pulp And Paper Tester Name Role Phone [employer] Information AdKeeper Unavailable Un available Problems Problem Status Onset Date Classification Date Reported Comments Source DX: ULCER LT 1ST Active 09/07/2018 [facility] Diabetes Mellitus Active 06/12/2013 [facility] Hypertension Active 06/12/2013 [facility] Hyperlipidemia Active 06/12/2013 [facility] Medications Medication Details Route Status Patient Instructions Ordering Provider Order Date Source Simvastatin 80 MG Oral Tablet (Active) Active [facility] GlipiZIDE XL 10 MG Oral Tablet Extended Release 24 Roderick r (Active) Active [facility] Losartan Potassium 50 MG Oral Tablet [...] drug a llergy drug aller gy Active [facility] Immunizations Immunization Date Given Site Status Last Updated Comments Source Influenza completed [facility] Td completed [facility] Results No Data Provided for This [...] johnnie relating to chronic denervation/neuropathic change. SL: [id number] 09/21/2018 [facility] Consultation Notes No Data Provided for This Section Discharge Summaries No Data Provided for This Section History and Physicals No Data Provided for This Section Vital Signs No Data Provided for This Section Encounters Location Location Details Encounter Type Encounter Number Reason For Visit Attending Provider ADM Date DC Date Status Source AUDIT [id number] 06/12/2013 06/12/2013 [facility] Outpatient [id number] Etienne Emerson 09/21/2018 09/22/2018 [facility] Procedures No Data Provided for This Section Assessment and Plan No Data Provided for This Section Plan of Care No Data Provided for This Section Social History Social History Date Source No data available for this section 09/22/2018 [facility] Marital History - Currently (Active) Alcohol Use (Active) No History of Drug Use (Denied) Never A Smoker (Active) Occupation: Retired (Active) 06/12/2013 [facility] Family History Value Date S ource Family history of Alzheimer Disease (Active) Paternal history of Diabetes Mellitus (V18.0); (Active) Maternal history of Hypertension (V17.49); (Active) Maternal history of Colon Cancer (V16.0); (Active) Family history of Asthma (V17.5); (Active) Family history of Depression (Active) 06/12/2013 [facility] Advance Directives Order Name Results Value Date Source Advance Directives Advance Dir ectives No Advance Directives available. 06/12/2013 [facility] Functional Status No Data Provided for This Section
--- OUTSIDE RECORDS SUMMARY | 2020-02-01 12:57 | XMS REPORT | Continuity of Care Document ---
Author Author [facility] t Organization [facility] Address 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 Name Role Phone MD Shelly PONCE MD PCP Shelly PONCE Attphys Unavailable Fahad Emerson Attphys Cristiana HERRERA Attphys Unavailable Shelly PONCE Admphys Unavailable Payers Payer Name Policy Type Policy Number Effective Date Expiration Date dez [facility] [id number] 2016 00:00:00 [facility] Problems Condition Name Condition Details Condition Category Status Onset Date Resolution Date Last Treatment Date Treating Clinician Comments Source DX: ULCER LT 1ST DX: ULCER LT 1ST Active 09/07/2018 [facility] Active 2018-09-07 00:00:00 2018-09-21 18:42:00 [facility] Elevated liver function tests Elevated LFTs Problem Active 201 08-26-17 00:00:00 [facility] Fever Fever Problem Active 2015-04-03 00:00:00 [facility] Hyponatremia Hyponatremia Problem Active 2015-04-03 00:00:00 [facility] Increased serum lipase level Problem Active 2015-04-03 00:00:00 [facility] Diabetes Mellitus Diab etes Mellitus Active 06/12/2013 [facility] Problem Active 2013-06-12 17:54:05 M emorirao Saldana Hypertension Hype rtension Active 06/12/2013 [facility] Problem Active 2013-06-12 17:54:05 Meet Yiann Hyperlipidemia Hype rlipidemia Active 06/12/2013 [facility] Problem Active 2013-06-12 17:54:05 M linda Yiann Abdominal pain Abdominal pain Problem Active [facility] Hepatic cirrhosis Cirrhosis Problem Active [facility] Nausea Nausea Problem Active [facility] Cerebrovascular accident (CVA) CVA (cerebral vascular accident) Pro blem Active [facility] Volume depletion Problem Active [facility] Allergies, Adverse Reactions, Alerts Allergy Name Allergy Type Status Severity Reaction(s) Onset Date Inacti ve Date Treating Clinician Comments Source No Known Allergies DA Active U 2017-04-12 00:00:00 [facility] No Known Drug Allergies No Known Drug Allergies Active [facility] Family History Family Member Diagnosis Comments Start Date Stop Date Source Unknown Family Member Family History 2013-06-12 17:54:05 2 17:54:05 [facility] Social History Social Habit Start Date Stop Date Quantity Comments Source Social History 2013-06-12 17:54:05 2013-06-12 17:54:05 [facility] Sex Assigned At 1940 00:00:00 1940 00:00:00 Male [facility] Medications Ordered Medication Name Filled Medication Name Start Date Stop Da te Current Medication? Ordering Clinician Indication Dosage Frequency Signature (SIG) Comments Components Source Ciprofloxacin Hcl Ciprofloxacin Hcl 2015-04-07 11:25:00 2018-12-05 00 :00:00 No 500 Twice A Day [facility] Metronidazole Metronidazole 2015-04-07 11:25:00 2018-12-05 00:00:00 No 500 Three Times A Day [facility] Ondansetron (Zofran Odt) 4 Mg TAB.RAPDIS Ondansetron ( Zofran Odt) 4 Mg TAB.RAPDIS 2015-04-07 11:25:00 2018-12-05 00:00:00 No 4 Every 6 Hours as needed for Nausea And Vomiting [facility] Simvastatin 80 MG Oral Tablet 2013-06-12 17:54:05 Yes (Active) Estefany Saldana GlipiZIDE XL 10 MG Oral Tablet Extended Release 24 Hour 2013-06-12 17:54:05 Yes (Active) Estefany Wright nn Losartan Potassium 50 MG Oral Tablet 2013-06-12 17:54:05 Ye s (Active) Estefany Saldana Venlafaxine HCl ER 75 MG Oral Capsule Extended Release 24 Ho ur 2013-06-12 17:54:05 Yes (Active) Mikeivan Saldana MetFORMIN HCl 1000 MG Oral Tablet 2013-06-12 17:54:05 Yes (Active) Estefany Saldana Desoximetasone 0.25 % External Cream 2013-06-12 17:54:05 Ye s (Active) Estefany Saldana Cinnamon 500 MG Oral Capsule 2013-06-12 17:54:05 Yes (Active) Estefany Yiann Clopidogrel Bisulfate (Plavix) 75 Mg TABLET Clopidogre l Bisulfate (Plavix) 75 Mg TABLET Yes 75 Daily [facility] Insulin Aspart (Novolog) 100 Units/1 Ml INJ Insulin As part (Novolog) 100 Units/1 Ml INJ Yes 30 Twice Daily With Meals [facility] Metformin Hcl Metformin Hcl Yes 1000 Twice A Day [facility] Multivitamin (Multi-Vitamin Daily) 1 Each TABLET Multi vitamin (Multi-Vitamin Daily) 1 Each TABLET Yes [facility] Rosuvastatin Calcium (Crestor) 10 Mg TAB Rosuvastatin Calcium (Crestor) 10 Mg TAB Yes 20 Daily [facility] Venlafaxine Hcl Venlafaxine Hcl Yes 75 Daily [facility] Aspirin (Aspir 81) 81 Mg TABLET. Aspirin (Aspir 81) 81 Mg TABL ET. 2019-05-30 00:00:00 No 81 Daily [facility] Clopidogrel Bisulfate (Plavix) 75 Mg TABLET Clopidogre l Bisulfate (Plavix) 75 Mg TABLET 2019-05-30 00:00:00 No 75 Daily [facility] Cyanocobalamin (Vitamin B-12) 1,000 Mcg TAB Cyanocobal simeon (Vitamin B-12) 1,000 Mcg TAB 2019-05-27 00:00:00 No 1000 Daily [facility] Insulin Lispro (Humalog) 100 Unit/1 Ml CARTRIDGE Insul in Lispro (Humalog) 100 Unit/1 Ml CARTRIDGE 2019-05-27 00:00:00 No Before Meals And At Bedtime [facility] Ciprofloxacin Hcl (Cipro) 500 Mg TABLET Ciprofloxacin Hcl (C ipro) 500 Mg TABLET 2019-04-18 00:00:00 No 500 Every 12 Hours [facility] Diphenoxylate Hcl/Atropine (Lomotil Tablet) 1 Each TAB LET Diphenoxylate Hcl/Atropine (Lomotil Tablet) 1 Each TABLET 2019-04-18 00:00:00 No 1 Every 6 Hours as needed for Diarrhea [facility] Ozempic Ozempic 2018-12-22 00:00:00 No 1 Q7days fo r Dm [facility] Glipizide (Glucotrol) 10 Mg TABLET Glipizide (Glucotrol) 10 Mg T ABLET 2018-12-05 00:00:00 No 10 Daily [facility] Insulin Lisp Protam/Lisp Human (Humalog Mix 75-25 Vial ) 100 Units/Ml ML Insulin Lisp Protam/Lisp Human (Humalog Mix 75-25 Vial) 100 Units/Ml ML 2018-12-05 00:00:00 No [facility] Losartan Potassium Losartan Potassium 2018-12-05 00:00:00 No 50 Daily [facility] Simvastatin Simvastatin 2018-12-05 00:00:00 No 40 T katie At 9:00PM [facility] Cephalexin Monohydrate (Keflex) 500 Mg CAPSULE Cephale jaime Monohydrate (Keflex) 500 Mg CAPSULE 2015-04-07 00:00:00 No 500 Twice A D ay [facility] Glucotrol Glucotrol 2015-04-02 00:00:00 No [facility] Unk Htn Pill Unk Htn Pill 2015-04-02 00:00:00 No [facility] Vital Signs Vital Name Observation Time Observation Value Comments Source Body Temperature 2019-09-04 11:32:00 98.3 [degF] [facility] Procedures Procedure Date / Time Performed Performing Clinician Sourliliana e EGD BIOPSY SINGLE/MULTIPLE 2019-09-04 00:00:00 C [facility] EGD VARICES LIGATION 2019-09-04 00:00:00 [facility] EGD BIOPSY SINGLE/MULTIPLE 2019-05-27 00:00:00 C [facility] EGD VARICES LIGATION 2019-05-27 00:00:00 [facility] BLOOD TRANSFUSION SERVICE 2019-05-23 00:00:00 CH I [facility] CT angiography of neck 2019-04-19 00:00:00 SARA OLIVAS [facility] Computed tomography angiography of brain 2019-04-19 00:00:00 SARA DOYLE [facility] Computed tomography of brain without radiopaque contrast 00:00:00 LUCIA SMYTH [facility] Magnetic resonance imaging of brain without contrast 2019-04 00:00:00 DEVANTE COLLINS [facility] Encounters Start Date/Time End Date/Time Encounter Type [facility] Care Department Encounter ID Source 2019-11-29 14:58:00 2019-12-16 23:59:00 Discharged Recurring [facility] [id number] [facility] 2019-11-08 10:42:00 2019-11-15 23:59:00 Discharged Recurring [facility] [id number] [facility] 2019-09-04 08:42:00 2019-09-04 08:42:00 Registered Surgical Day Care [facility] [id number] [facility] 2019-06-24 15:17:00 2019-06-24 15:17:00 Registered Clinic [facility] [id number] [facility] 2019-05-20 13:33:00 2019-06-15 22:59:00 Discharged Recurring [facility] [id number] [facility] 2019-05-27 17:50:00 2019-05-30 13:49:00 Discharged Inpatient (obs) [facility] [id number] [facility] 2019-05-23 09:05:00 2019-05-23 15:23:00 Departed Emergency Room [facility] [id number] [facility] 2019-05-02 14:44:00 2019-05-17 22:59:00 Discharged Recurring [facility] [id number] [facility] 2019-04-19 09:04:00 2019-04-20 14:48:00 Discharged Inpatient 1 KYLE PONCEAHAM [facility] [id number] [facility] 2019-03-21 13:23:00 2019-04-16 22:59:00 Discharged Recurring [facility] [id number] [facility] 2018-12-19 08:48:00 2018-12-22 08:32:00 [facility] [id number] [facility] 2018-12-05 16:32:00 2018-12-08 12:20:00 Discharged Inpatient (obs) [address] [facility] [id number] [facility] 2018-09-21 18:34:00 2018-09-21 23:59:00 Outpatient Marianela Emerson [facility] [id number] 2018-09-21 18:34:00 2018-09-21 18:34:00 Outpatient [id number] 2013-06-12 11:54:2013-06-12 11:54:05 [id number] Results Test Description Test Time Test Comments Results Result Comments Source Capillary blood glucose measurement by glucometer (mas s/volume) 2019-09-04 11:47:00 Test Item Bedside Glucose (test code = 53239-1) 218 70-120 Meter ID: [id number] [facility] by glucometer (mass/volume)2019-09-04 11:47:00* Test Item Value Reference Range Interpretation Comments Bedside Glucose (test code = 90788-8) 218 70-120 Meter ID: [id number] [facility]or[facility] procedure less than one hour [id number] 15:45:00* Test Item Value Reference Range Interpretation Comments Coronavirus (PCR) (test code = Coronavirus (PCR)) NOT DETECTED NOTD ETECTED SARS-COV-2 (COVID19), HIGHRISK, RT-PCRNegative results do not preclude SARS-CoV- 2 infection and should not be used as the sole basis for patient management deci sions. Negative results must be combined with clinical observations, patient his tory, and epidemiological information. Optimum specimen types and timing for pea k viral levels during infections caused by SARS-CoV-2 have not been determined. Collection of multiple specimens ot types of specimens may be necessary to detec t virus. Improper specimen collection and handling, sequence variability under p rimers/probes, or organism present below the limit of detection may lead to fals e negative results. Positive and negative predictive values of testing are highl y dependent on prevalance. False negative test results are more likely when prev alence is high.The expected result is negative (not detected).The SARS-CoV-2 anurag t is intended for the qualitative detection of nucleic acid from SARS-CoV-2 in n asopharyngeal and oropharyngeal swab samples from patients who meet COVID-19 cli nical and or epidemiological criteria. For lower respiratory tract specimens, th e assay is submitted for authoriztion by FDA under an Emergency Use Authorizatio n (EUA). Testing methodology is real time RT-PCR. If received as separate collec tion devices, nasopharygeal and oropharyngeal specimens are combined for analysi s. Additional specimens may be split to a separate accession for analysi and rep orting as this test includes a single unit of service.Test results must be corre lated with clinical presentation and evaluated in the context of other laborator y and epidemiologic data. Test performance can be affected because the epidemiol ogy and clinical spectrum of infection caused by SARS-CoV-2 is not fully known. For example, the optimum types of specimens to collect and when during the cours e of infection these specimens are most likely to contain detectable viral RNA m ay not be known.This test has not been Food and Drug Administration (FDA) cleare d or approved and has been authorized by FDA under an Emergency Use Authorizatio n (EUA). The test is only authorized for the duration of the declaration that ci rcumstances exist justifying the authorization of emergency use of in vitro diag nostic tests for detection and/or diagnosis of SARS-CoV-2 under section 564(b) o f the Act, 21 U.S.C. section 360bbb-3(b)(1), unless the authorization is termina anju or revoked sooner. [facility] are certified under the C linical Laboratory Improvement Amendments of 1988 (CLIA), 42 U.S.C. section 263a , to perform high complexity tests.Testing performed by [facility] [id number] [phone] Director: Etienne Jeffery M.D.CLIA # [id number] [facility] Fluoroscopic procedure less than one hour [id number] 15:45:00* Test Item Value Reference Range Interpretation Comments Coronavirus (PCR) (test code = Coronavirus (PCR)) NOT DETECTED NOTD ETECTED SARS-COV-2 (COVID19), HIGHRISK, RT-PCRNegative results do not preclude SARS-CoV- 2 infection and should not be used as the sole basis for patient management deci sions. Negative results must be combined with clinical observations, patient his tory, and epidemiological information. Optimum specimen types and timing for pea k viral levels during infections caused by SARS-CoV-2 have not been determined. Collection of multiple specimens ot types of specimens may be necessary to detec t virus. Improper specimen collection and handling, sequence variability under p rimers/probes, or organism present below the limit of detection may lead to fals e negative results. Positive and negative predictive values of testing are highl y dependent on prevalance. False negative test results are more likely when prev alence is high.The expected result is negative (not detected).The SARS-CoV-2 anurag t is intended for the qualitative detection of nucleic acid from SARS-CoV-2 in n asopharyngeal and oropharyngeal swab samples from patients who meet COVID-19 cli nical and or epidemiological criteria. For lower respiratory tract specimens, th e assay is submitted for authoriztion by FDA under an Emergency Use Authorizatio n (EUA). Testing methodology is real time RT-PCR. If received as separate collec tion devices, nasopharygeal and oropharyngeal specimens are combined for analysi s. Additional specimens may be split to a separate accession for analysi and rep orting as this test includes a single unit of service.Test results must be corre lated with clinical presentation and evaluated in the context of other laborator y and epidemiologic data. Test performance can be affected because the epidemiol ogy and clinical spectrum of infection caused by SARS-CoV-2 is not fully known. For example, the optimum types of specimens to collect and when during the cours e of infection these specimens are most likely to contain detectable viral RNA m ay not be known.This test has not been Food and Drug Administration (FDA) cleare d or approved and has been authorized by FDA under an Emergency Use Authorizatio n (EUA). The test is only authorized for the duration of the declaration that ci rcumstances exist justifying the authorization of emergency use of in vitro diag nostic tests for detection and/or diagnosis of SARS-CoV-2 under section 564(b) o f the Act, 21 U.S.C. section 360bbb-3(b)(1), unless the authorization is termina anju or revoked sooner. [facility] are certified under the C linical Laboratory Improvement Amendments of 1988 (CLIA), 42 U.S.C. section 263a , to perform high complexity tests.Testing performed by [facility] [address] [phone] Director: Etienne Jeffery M.D.CLIA # [id number] HospitalBlood leukocytes automated count (number/volume)2019-08-30 15:27:00* Test Item Value Reference Range Interpretation Comments White Blood Count (test code = 6690-2) 6.13 4.8-10.8 [facility] erythrocytes automated count (number/volume)2019-08-30 15:27:00* Test Item Value Reference Range Interpretation Comments Red Blood Count (test code = 789-8) 3.92 4.3-5.7 [facility] hemoglobin measurement (moles/volume)2019-08-30 15:27:00* Test Item Value Reference Range Interpretation Comments Hemoglobin (test code = 27712-1) 11.2 14.0-18.0 [facility] HospitalAutomated blood hematocrit (volume fraction)2019-08-30 15:27:00* Test Item Value Reference Range Interpretation Comments Hematocrit (test code = 4544-3) 35.8 38.2-49.6 [facility] HospitalAutomated erythrocyte mean corpuscular [id number] 15:27:00* Test Item Value Reference Range Interpretation Comments Mean Corpuscular Volume (test code = 787-2) 91.3 81-99 [facility] erythrocyte mean corpuscular hemoglobin (mass per erythrocyte)2019-08-30 15:27:00* Test Item Value Reference Range Interpretation Comments Mean Corpuscular Hemoglobin (test code = 785-6) 28.6 28-32 [facility]Autom[facility] erythrocyte mean corpuscular hemoglobin concentration measurement (mass/volume)2019-08-30 15:27:00* Test Item Value Reference Range Interpretation Comments Mean Corpuscular Hemoglobin Concent (test code = 786-4) 31.3 31-35 [facility] HospitalRDW [id number] 15:27:00* Test Item Value Reference Range Interpretation Comments Red Cell Distribution Width (test code = 12325-1) 16.1 11.7 -14.4 [facility] platelet count (count/volume)2019-08-30 15:27:00* Test Item Value Reference Range Interpretation Comments Platelet Count (test code = 777-3) 121 140-360 [facility]Autom[facility] blood segmented neutrophil count as percentage of total [id number] 15:27:00* Test Item Value Reference Range Interpretation Comments Neutrophils (%) (Auto) (test code = 28554-7) 28.4 38.7-80.0 [facility] HospitalAutom[facility] blood lymphocyte count as percentage ot total [id number] 15:27:00* Test Item Value Reference Range Interpretation Comments Lymphocytes (%) (Auto) (test code = 736-9) 54.8 18.0-39.1 [facility]Autom[facility] blood monocyte count as percentage of total [id number] 15:27:00* Test Item Value Reference Range Interpretation Comments Monocytes (%) (Auto) (test code = 5905-5) 8.0 4.4-11.3 [facility]Autom[facility] blood eosinophil count as percentage of total [id number] 15:27:00* Test Item Value Reference Range Interpretation Comments Eosinophils (%) (Auto) (test code = 713-8) 7.8 0.0-6.0 [facility]Autom[facility] blood basophil count as percentage of total [id number] 15:27:00* Test Item Value Reference Range Interpretation Comments Basophils (%) (Auto) (test code = 706-2) 1.0 0.0-1.0 [facility] HospitalFluoroscopic procedure less than one hour [id number] 15:27:00* Test Item Value Reference Range Interpretation Comments IM GRANULOCYTES % (test code = IM GRANULOCYTES %) 0.0 0.0- 1.0 [facility] neutrophil count 2019-08-30 15:27:00* Test Item Value Reference Range Interpretation Comments Neutrophils # (Auto) (test code = 751-8) 1.7 2.1-6.9 [facility]Blood lymphocytes count (number/volume) 2019-08-30 15:27:00* Test Item Value Reference Range Interpretation Comments Lymphocytes # (Auto) (test code = 09018-9) 3.4 1.0-3.2 [facility]Blood monocytes automated count (number/volume)2019-08-30 15:27:00* Test Item Value Reference Range Interpretation Comments Monocytes # (Auto) (test code = 742-7) 0.5 0.2-0.8 [facility]Autom[facility] blood eosinophil count 2019-08-30 15:27:00* Test Item Value Reference Range Interpretation Comments Eosinophils # (Auto) (test code = 711-2) 0.5 0.0-0.4 [facility] HospitalAutom[facility] blood basophil count (count/volume)2019-08-30 15:27:00* Test Item Value Reference Range Interpretation Comments Basophils # (Auto) (test code = 704-7) 0.1 0.0-0.1 [facility] HospitalFluoroscopic procedure less than one hour [id number] 15:27:00* Test Item Value Reference Range Interpretation Comments Absolute Immature Granulocyte (auto (anurag t code = Absolute Immature Granulocyte (auto) 0 0-0.1 [facility] HospitalProthrombin time (PT) in platelet poor plasma by coagulation [id number] 15:27:00* Test Item Value Reference Range Interpretation Comments Prothrombin Time (test code = 5902-2) 13.1 11.9-14.5 [facility] HospitalINR in Platelet poor plasma by Coagulation [id number] 15:27:00* Test Item Value Reference Range Interpretation Comments Prothromb Time International Ratio (test code = 6301-6) 0.94 Oral Anticoagulant Therapy INR Values:1. Low Intensity Therapy 1.5 - 2.02 . Moderate Intensity Therapy 2.0 - 3.03. High Intensity Therapy(1) 2.5 - 3. 54. High Intensity Therapy(2) 3.0 - 4.05. Panic Value INR > 5.0 [facility] HospitalActivated partial thromboplastin time (aPTT) in platelet poor plasma by coagulation [id number] 15:27:00* Test Item Value Reference Range Interpretation Comments Activated Partial Thromboplast Time (test code = 63093-7) 32.6 23.8-35.5 [facility] sodium [facility] (moles/volume)2019-08-30 15:27:00* Test Item Value Reference Range Interpretation Comments Sodium Level (test code = 2951-2) 138 136-145 [facility] potassium measurement (moles/volume)2019-08-30 15:27:00* Test Item Value Reference Range Interpretation Comments Potassium Level (test code = 2823-3) 4.9 3.5-5.1 [facility] plasma chloride measurement (moles/volume)2019-08-30 15:27:00* Test Item Value Reference Range Interpretation Comments Chloride Level (test code = 2075-0) 104 98-107 [facility] or plasma carbon dioxide, total measurement (moles/volume)2019-08-30 15:27:00* Test Item Value Reference Range Interpretation Comments Carbon Dioxide Level (test code = 2028-9) 25 22-29 [facility] or plasma anion [id number] 15:27:00* Test Item Value Reference Range Interpretation Comments Anion Gap (test code = 25487-0) 13.9 8-16 [facility] urea nitrogen measurement (mass/volume)2019-08-30 15:27:00* Test Item Value Reference Range Interpretation Comments Blood Urea Nitrogen (test code = 3094-0) 12 7-26 [facility] plasma creatinine measurement (mass/volume)2019-08-30 15:27:00* Test Item Value Reference Range Interpretation Comments Creatinine (test code = 2160-0) 1.13 0.72-1.25 [facility] urea nitrogen/creatinine mass mzjsw9147-73-43 15:27:00* Test Item Value Reference Range Interpretation Comments BUN/Creatinine Ratio (test code = 3097-3) 11 6-25 [facility] HospitalEstimated glomerular filtration rate (GFR) dexcxjtzlwiuu4548-91-60 15:27:00* Test Item Value Reference Range Interpretation Comments Estimat Glomerular Filtration Rate (test code = 841946727) > 60 >60 Ranges were taken from the National Kidney Disease Education Program and the [facility] Kidney Foundation literature.Reference ranges:60 or greater: Bkvbge63-84 ( for 3 consecutive months): Chronic kidney disease 15 or less: Kidney failureEastland Memorial HospitalGlucose myerkfayhaf8732-86-69 15:27:00* Test Item Value Reference Range Interpretation Comments Glucose Level (test code = QHM4665) 308 74-118 [facility] calcium measurement (mass/volume)2019-08-30 15:27:00* Test Item Value Reference Range Interpretation Comments Calcium Level (test code = 49349-6) 9.6 8.4-10.2 [facility]ere[facility] or plasma total bilirubin measurement (mass/volume)2019-08-30 15:27:00* Test Item Value Reference Range Interpretation Comments Total Bilirubin (test code = 1975-2) 0.6 0.2-1.2 [facility] HospitalFluoroscopic procedure less than one hour ralyjwpr3631-95-16 15:27:00* Test Item Value Reference Range Interpretation Comments Aspartate Amino Transf (AST/SGOT) (test code = Aspartate Amino Transf (AST/SGOT)) 37 5-34 [facility]ererum or plasma alanine aminotransferase measurement (enzymatic activity/volume)2019-08-30 15:27:00* Test Item Value Reference Range Interpretation Comments Alanine Aminotransferase (ALT/SGPT) (test code = 1742-6) 37 0-55 [facility] protein measurement (mass/volume)2019-08-30 15:27:00* Test Item Value Reference Range Interpretation Comments Total Protein (test code = 2885-2) 6.3 6.5-8.1 [facility]ererum [facility] albumin measurement (mass/volume)2019-08-30 15:27:00* Test Item Value Reference Range Interpretation Comments Albumin (test code = 1751-7) 3.4 3.5-5.0 [facility] HospitalPlasma globulin measurement (mass/volume) 2019-08-30 15:27:00* Test Item Value Reference Range Interpretation Comments Globulin (test code = 87321-6) 2.9 2.3-3.5 [facility]ere[facility] or plasma albumin/globulin mass bkzjg2492-45-30 15:27:00* Test Item Value Reference Range Interpretation Comments Albumin/Globulin Ratio (test code = 1759-0) 1.2 0.8-2.0 [facility]ererum or plasma alkaline phosphatase measurement (enzymatic activity/volume)2019-08-30 15:27:00* Test Item Value Reference Range Interpretation Comments Alkaline Phosphatase (test code = 6768-6) 104 40-150 [facility] HospitalBlood leukocytes automated count (number/volume)2019-08-30 15:27:00* Test Item Value Reference Range Interpretation Comments White Blood Count (test code = 6690-2) 6.13 4.8-10.8 [facility] HospitalBlwase[facility] erythrocytes automated count (number/volume)2019-08-30 15:27:00* Test Item Value Reference Range Interpretation Comments Red Blood Count (test code = 789-8) 3.92 4.3-5.7 [facility] HospitalBlood hemoglobin measurement (moles/volume)2019-08-30 15:27:00* Test Item Value Reference Range Interpretation Comments Hemoglobin (test code = 71447-5) 11.2 14.0-18.0 [facility] HospitalAutomated blood hematocrit (volume fraction)2019-08-30 15:27:00* Test Item Value Reference Range Interpretation Comments Hematocrit (test code = 4544-3) 35.8 38.2-49.6 [facility] HospitalAutomated erythrocyte mean corpuscular okhyrr9302-27-90 15:27:00* Test Item Value Reference Range Interpretation Comments Mean Corpuscular Volume (test code = 787-2) 91.3 81-99 [facility] HospitalAutomated erythrocyte mean corpuscular hemoglobin (mass per erythrocyte)2019-08-30 15:27:00* Test Item Value Reference Range Interpretation Comments Mean Corpuscular Hemoglobin (test code = 785-6) 28.6 28-32 [facility] HospitalAutomated erythrocyte mean corpuscular hemoglobin concentration measurement (mass/volume)2019-08-30 15:27:00* Test Item Value Reference Range Interpretation Comments Mean Corpuscular Hemoglobin Concent (test code = 786-4) 31.3 31-35 [facility] HospitalRDW ZwdXo-Gpg7341-75-15 15:27:00* Test Item Value Reference Range Interpretation Comments Red Cell Distribution Width (test code = 89967-7) 16.1 11.7 -14.4 [facility] HospitalAutomated blood platelet count (count/volume)2019-08-30 15:27:00* Test Item Value Reference Range Interpretation Comments Platelet Count (test code = 777-3) 121 140-360 [facility] HospitalAutomated blood segmented neutrophil count as percentage of total kipdiinbpe3824-81-69 15:27:00* Test Item Value Reference Range Interpretation Comments Neutrophils (%) (Auto) (test code = 94128-4) 28.4 38.7-80.0 [facility] HospitalAutomated blood lymphocyte count as percentage ot total ndeyhibtfa2483-56-78 15:27:00* Test Item Value Reference Range Interpretation Comments Lymphocytes (%) (Auto) (test code = 736-9) 54.8 18.0-39.1 [facility] HospitalAutomated blood monocyte count as percentage of total ftkwwgbovi2392-44-04 15:27:00* Test Item Value Reference Range Interpretation Comments Monocytes (%) (Auto) (test code = 5905-5) 8.0 4.4-11.3 [facility] HospitalAutomated blood eosinophil count as percentage of total zpeejxkbnp4221-14-54 15:27:00* Test Item Value Reference Range Interpretation Comments Eosinophils (%) (Auto) (test code = 713-8) 7.8 0.0-6.0 [facility] HospitalAutomated blood basophil count as percentage of total wucevfdsuu0238-60-47 15:27:00* Test Item Value Reference Range Interpretation Comments Basophils (%) (Auto) (test code = 706-2) 1.0 0.0-1.0 [facility] HospitalFluoroscopic procedure less than one hour uwedpexm8977-01-69 15:27:00* Test Item Value Reference Range Interpretation Comments IM GRANULOCYTES % (test code = IM GRANULOCYTES %) 0.0 0.0- 1.0 [facility] HospitalAutomated blood neutrophil count 2019-08-30 15:27:00* Test Item Value Reference Range Interpretation Comments Neutrophils # (Auto) (test code = 751-8) 1.7 2.1-6.9 [facility] HospitalBlood lymphocytes count (number/volume) 2019-08-30 15:27:00* Test Item Value Reference Range Interpretation Comments Lymphocytes # (Auto) (test code = 21471-6) 3.4 1.0-3.2 [facility] HospitalBlwaseca [facility] monocytes automated count (number/volume)2019-08-30 15:27:00* Test Item Value Reference Range Interpretation Comments Monocytes # (Auto) (test code = 742-7) 0.5 0.2-0.8 [facility] HospitalAutomated blood eosinophil count 2019-08-30 15:27:00* Test Item Value Reference Range Interpretation Comments Eosinophils # (Auto) (test code = 711-2) 0.5 0.0-0.4 [facility] HospitalAutomated blood basophil count (count/volume)2019-08-30 15:27:00* Test Item Value Reference Range Interpretation Comments Basophils # (Auto) (test code = 704-7) 0.1 0.0-0.1 [facility] HospitalFluoroscopic procedure less than one hour tzmsxiwh1084-14-24 15:27:00* Test Item Value Reference Range Interpretation Comments Absolute Immature Granulocyte (auto (anurag t code = Absolute Immature Granulocyte (auto) 0 0-0.1 [facility] HospitalProthrombin time (PT) in platelet poor plasma by coagulation vqygi1128-89-25 15:27:00* Test Item Value Reference Range Interpretation Comments Prothrombin Time (test code = 5902-2) 13.1 11.9-14.5 [facility] HospitalINR in Platelet poor plasma by Coagulation amaeu0085-77-02 15:27:00* Test Item Value Reference Range Interpretation Comments Prothromb Time International Ratio (test code = 6301-6) 0.94 Oral Anticoagulant Therapy INR Values:1. Low Intensity Therapy 1.5 - 2.02 . Moderate Intensity Therapy 2.0 - 3.03. High Intensity Therapy(1) 2.5 - 3. 54. High Intensity Therapy(2) 3.0 - 4.05. Panic Value INR > 5.0 [facility] HospitalActivated partial thromboplastin time (aPTT) in platelet poor plasma by coagulation arfip1068-46-87 15:27:00* Test Item Value Reference Range Interpretation Comments Activated Partial Thromboplast Time (test code = 91698-6) 32.6 23.8-35.5 [facility] sodium measurement (moles/volume)2019-08-30 15:27:00* Test Item Value Reference Range Interpretation Comments Sodium Level (test code = 2951-2) 138 136-145 [facility]ererum or plasma potassium measurement (moles/volume)2019-08-30 15:27:00* Test Item Value Reference Range Interpretation Comments Potassium Level (test code = 2823-3) 4.9 3.5-5.1 [facility]ererum or plasma chloride measurement (moles/volume)2019-08-30 15:27:00* Test Item Value Reference Range Interpretation Comments Chloride Level (test code = 2075-0) 104 98-107 [facility]ererum or plasma carbon dioxide, total measurement (moles/volume)2019-08-30 15:27:00* Test Item Value Reference Range Interpretation Comments Carbon Dioxide Level (test code = 2028-9) 25 22-29 [facility]ererum or plasma anion egz0028-74-82 15:27:00* Test Item Value Reference Range Interpretation Comments Anion Gap (test code = 50185-3) 13.9 8-16 [facility]ererum or plasma urea nitrogen measurement (mass/volume)2019-08-30 15:27:00* Test Item Value Reference Range Interpretation Comments Blood Urea Nitrogen (test code = 3094-0) 12 7-26 [facility]ererum or plasma creatinine measurement (mass/volume)2019-08-30 15:27:00* Test Item Value Reference Range Interpretation Comments Creatinine (test code = 2160-0) 1.13 0.72-1.25 [facility]ererum or plasma urea nitrogen/creatinine mass rychn0832-90-29 15:27:00* Test Item Value Reference Range Interpretation Comments BUN/Creatinine Ratio (test code = 3097-3) 11 6-25 [facility] HospitalEstimated glomerular filtration rate (GFR) xsrpflwkvdupf3187-69-21 15:27:00* Test Item Value Reference Range Interpretation Comments Estimat Glomerular Filtration Rate (test code = 457341701) > 60 >60 Ranges were taken from the National Kidney Disease Education Program and the [facility] Kidney Foundation literature.Reference ranges:60 or greater: Zhbvvt67-37 ( for 3 consecutive months): Chronic kidney disease 15 or less: Kidney failureEastland Memorial HospitalGlucose magrfmaokct7443-95-54 15:27:00* Test Item Value Reference Range Interpretation Comments Glucose Level (test code = DRO9607) 308 74-118 [facility] plasma calcium measurement (mass/volume)2019-08-30 15:27:00* Test Item Value Reference Range Interpretation Comments Calcium Level (test code = 09224-1) 9.6 8.4-10.2 [facility]ererum or plasma total bilirubin measurement (mass/volume)2019-08-30 15:27:00* Test Item Value Reference Range Interpretation Comments Total Bilirubin (test code = 1975-2) 0.6 0.2-1.2 [facility] HospitalFluoroscopic procedure less than one hour hhtoxwxo4862-37-33 15:27:00* Test Item Value Reference Range Interpretation Comments Aspartate Amino Transf (AST/SGOT) (test code = Aspartate Amino Transf (AST/SGOT)) 37 5-34 [facility]ererum or plasma alanine aminotransferase measurement (enzymatic activity/volume)2019-08-30 15:27:00* Test Item Value Reference Range Interpretation Comments Alanine Aminotransferase (ALT/SGPT) (test code = 1742-6) 37 0-55 [facility]ererum or plasma protein measurement (mass/volume)2019-08-30 15:27:00* Test Item Value Reference Range Interpretation Comments Total Protein (test code = 2885-2) 6.3 6.5-8.1 [facility]ererum or plasma albumin measurement (mass/volume)2019-08-30 15:27:00* Test Item Value Reference Range Interpretation Comments Albumin (test code = 1751-7) 3.4 3.5-5.0 [facility] HospitalPlasma globulin measurement (mass/volume) 2019-08-30 15:27:00* Test Item Value Reference Range Interpretation Comments Globulin (test code = 10795-1) 2.9 2.3-3.5 [facility]ererum or plasma albumin/globulin mass bzmuy6126-39-57 15:27:00* Test Item Value Reference Range Interpretation Comments Albumin/Globulin Ratio (test code = 1759-0) 1.2 0.8-2.0 [facility]ererum or plasma alkaline phosphatase measurement (enzymatic activity/volume)2019-08-30 15:27:00* Test Item Value Reference Range Interpretation Comments Alkaline Phosphatase (test code = 6768-6) 104 40-150 [facility] Lxgwmed9821-44-90 12:20:00* Test Item Value Reference Range Interpretation Comments Bedside Glucose (test code = 81487-9) 164 70-120 H Meter ID: [id number] Glucose 2019-05-30 12:20:00* Test Item Value Reference Range Interpretation Comments Bedside Glucose (test code = 01590-4) 164 70-120 H Meter ID: [id number] Memorial HospitalDifferential Total Cells Uverwmn8154-17-17 07:50:00* Test Item Value Reference Range Interpretation Comments Differential Total Cells Counted (test code = Differen tial Total Cells Counted) 100 [facility] HospitalNeutrophils % (Manual)2019-05-30 07:50:00 * Test Item Value Reference Range Interpretation Comments Neutrophils % (Manual) (test code = 62674-7) 62 40-74 [facility] HospitalLymphocytes % (Manual)2019-05-30 07:50:00 * Test Item Value Reference Range Interpretation Comments Lymphocytes % (Manual) (test code = 737-7) 34 19-48 [facility] HospitalMonocytes % (Manual)2019-05-30 07:50:00* Test Item Value Reference Range Interpretation Comments Monocytes % (Manual) (test code = 744-3) 4 3.4-9.0 [facility] HospitalDifferential Total Cells Counted 2019-05-30 07:50:00* Test Item Value Reference Range Interpretation Comments Differential Total Cells Counted (test code = Differbipin tial Total Cells Counted) 100 [facility] HospitalNeutrophils % (Manual)2019-05-30 07:50:00 * Test Item Value Reference Range Interpretation Comments Neutrophils % (Manual) (test code = 73603-2) 62 40-74 [facility] HospitalLymphocytes % (Manual)2019-05-30 07:50:00 * Test Item Value Reference Range Interpretation Comments Lymphocytes % (Manual) (test code = 737-7) 34 19-48 [facility] HospitalMonocytes % (Manual)2019-05-30 07:50:00* Test Item Value Reference Range Interpretation Comments Monocytes % (Manual) (test code = 744-3) 4 3.4-9.0 [facility] Centerodium Aqbxx4850-18-72 05:32:00* Test Item Value Reference Range Interpretation Comments Sodium Level (test code = 2951-2) 141 136-145 [facility] HospitalPotassium Yrift8358-11-99 05:32:00* Test Item Value Reference Range Interpretation Comments Potassium Level (test code = 2823-3) 3.9 3.5-5.1 [facility] HospitalChloride Ihjmx5470-88-23 05:32:00* Test Item Value Reference Range Interpretation Comments Chloride Level (test code = 2075-0) 107 98-107 [facility] HospitalCarbon Dioxide Wvqic1107-67-61 05:32:00* Test Item Value Reference Range Interpretation Comments Carbon Dioxide Level (test code = 2028-9) 22 22-29 [facility] HospitalAnion Tnt1674-18-91 05:32:00* Test Item Value Reference Range Interpretation Comments Anion Gap (test code = 62697-3) 15.9 8-16 [facility] HospitalBlood Urea Jybkveru9246-44-70 05:32:00* Test Item Value Reference Range Interpretation Comments Blood Urea Nitrogen (test code = 3094-0) 19 7-26 [facility] HospitalCreatinine2020-02-13 05:32:00* Test Item Value Reference Range Interpretation Comments Creatinine (test code = 2160-0) 0.82 0.72-1.25 [facility] HospitalBUN/Creatinine Ypvzn2294-38-33 05:32:00* Test Item Value Reference Range Interpretation Comments BUN/Creatinine Ratio (test code = 3097-3) 23 6- [facility] HospitalEstimat Glomerular Filtration Rate 2019-05-30 05:32:00* Test Item Value Reference Range Interpretation Comments Estimat Glomerular Filtration Rate (test code = 539225350) > 60 >60 Ranges were taken from the National Kidney Disease Education Program and the [facility] Kidney Foundation literature.Reference ranges:60 or greater: Unvhlt12-13 ( for 3 consecutive months): Chronic kidney disease 15 or less: Kidney failureEastland Memorial HospitalGlucose Mawsm6286-45-75 05:32:00* Test Item Value Reference Range Interpretation Comments Glucose Level (test code = RBY9701) 147 74-118 H [facility] HospitalCalcium Jgknp7611-30-66 05:32:00* Test Item Value Reference Range Interpretation Comments Calcium Level (test code = 14770-8) 8.9 8.4-10.2 [facility] Centerodium Vjpel9509-62-20 05:32:00* Test Item Value Reference Range Interpretation Comments Sodium Level (test code = 2951-2) 141 136-145 [facility] HospitalPotassium Lozey7089-90-82 05:32:00* Test Item Value Reference Range Interpretation Comments Potassium Level (test code = 2823-3) 3.9 3.5-5.1 [facility] HospitalChloride Rdthe9340-84-31 05:32:00* Test Item Value Reference Range Interpretation Comments Chloride Level (test code = 2075-0) 107 98-107 [facility] HospitalCarbon Dioxide Cwmyb8139-61-74 05:32:00* Test Item Value Reference Range Interpretation Comments Carbon Dioxide Level (test code = 2028-9) 22 22-29 [facility] HospitalAnion Vlp7351-24-91 05:32:00* Test Item Value Reference Range Interpretation Comments Anion Gap (test code = 65511-2) 15.9 8-16 [facility] HospitalBlood Urea Pjlphird9987-40-98 05:32:00* Test Item Value Reference Range Interpretation Comments Blood Urea Nitrogen (test code = 3094-0) 19 7-26 [facility] HospitalCreatinine2020-02-13 05:32:00* Test Item Value Reference Range Interpretation Comments Creatinine (test code = 2160-0) 0.82 0.72-1.25 [facility] HospitalBUN/Creatinine Waezm1286-12-77 05:32:00* Test Item Value Reference Range Interpretation Comments BUN/Creatinine Ratio (test code = 3097-3) 23 6- [facility] HospitalEstimat Glomerular Filtration Rate 2019-05-30 05:32:00* Test Item Value Reference Range Interpretation Comments Estimat Glomerular Filtration Rate (test code = 323797892) > 60 >60 Ranges were taken from the National Kidney Disease Education Program and the [facility] Kidney Foundation literature.Reference ranges:60 or greater: Shxxkw30-67 ( for 3 consecutive months): Chronic kidney disease 15 or less: Kidney failureEastland Memorial HospitalGlucose Bvrxb7043-68-83 05:32:00* Test Item Value Reference Range Interpretation Comments Glucose Level (test code = ATF9346) 147 74-118 H [facility] HospitalCalcium Uaoib0743-83-66 05:32:00* Test Item Value Reference Range Interpretation Comments Calcium Level (test code = 86818-6) 8.9 8.4-10.2 [facility] HospitalWhite Blood Pplcy6390-46-63 05:07:00* Test Item Value Reference Range Interpretation Comments White Blood Count (test code = 6690-2) 11.59 4.8-10.8 H [facility] HospitalRed Blood Ikeox8756-48-70 05:07:00* Test Item Value Reference Range Interpretation Comments Red Blood Count (test code = 789-8) 3.17 4.3-5.7 L [facility] HospitalHemoglobin2020-02-13 05:07:00* Test Item Value Reference Range Interpretation Comments Hemoglobin (test code = 24930-0) 8.4 14.0-18.0 L [facility] HospitalHematocrit2020-02-13 05:07:00* Test Item Value Reference Range Interpretation Comments Hematocrit (test code = 4544-3) 27.7 38.2-49.6 L [facility] HospitalMean Corpuscular Gmyurt2560-78-00 05:07:00* Test Item Value Reference Range Interpretation Comments Mean Corpuscular Volume (test code = 787-2) 87.4 81-99 [facility] HospitalMean Corpuscular Gsexzqybjt9387-29-95 05:07:00* Test Item Value Reference Range Interpretation Comments Mean Corpuscular Hemoglobin (test code = 785-6) 26.5 28-32 L [facility] HospitalMean Corpuscular Hemoglobin Concent 2019-05-30 05:07:00* Test Item Value Reference Range Interpretation Comments Mean Corpuscular Hemoglobin Concent (test code = 786-4) 30.3 31-35 L [facility] HospitalRed Cell Distribution Oubpm7067-77-71 05:07:00* Test Item Value Reference Range Interpretation Comments Red Cell Distribution Width (test code = 85624-1) 14.7 11.7 -14.4 H [facility] HospitalPlatelet Tuwca6713-76-71 05:07:00* Test Item Value Reference Range Interpretation Comments Platelet Count (test code = 777-3) 157 140-360 [facility] HospitalNeutrophils (%) (Auto)2019-05-30 05:07:00 * Test Item Value Reference Range Interpretation Comments Neutrophils (%) (Auto) (test code = 51317-1) 55.3 38.7-80.0 [facility] HospitalLymphocytes (%) (Auto)2019-05-30 05:07:00 * Test Item Value Reference Range Interpretation Comments Lymphocytes (%) (Auto) (test code = 736-9) 38.1 18.0-39.1 [facility] HospitalMonocytes (%) (Auto)2019-05-30 05:07:00* Test Item Value Reference Range Interpretation Comments Monocytes (%) (Auto) (test code = 5905-5) 5.7 4.4-11.3 [facility] HospitalEosinophils (%) (Auto)2019-05-30 05:07:00 * Test Item Value Reference Range Interpretation Comments Eosinophils (%) (Auto) (test code = 713-8) 0.3 0.0-6.0 [facility] HospitalBasophils (%) (Auto)2019-05-30 05:07:00* Test Item Value Reference Range Interpretation Comments Basophils (%) (Auto) (test code = 706-2) 0.3 0.0-1.0 [facility] HospitalIM GRANULOCYTES %2019-05-30 05:07:00* Test Item Value Reference Range Interpretation Comments IM GRANULOCYTES % (test code = IM GRANULOCYTES %) 0.3 0.0- 1.0 [facility] HospitalNeutrophils # (Auto)2019-05-30 05:07:00* Test Item Value Reference Range Interpretation Comments Neutrophils # (Auto) (test code = 751-8) 6.4 2.1-6.9 [facility] HospitalLymphocytes # (Auto)2019-05-30 05:07:00* Test Item Value Reference Range Interpretation Comments Lymphocytes # (Auto) (test code = 34623-7) 4.4 1.0-3.2 H [facility] HospitalMonocytes # (Auto)2019-05-30 05:07:00* Test Item Value Reference Range Interpretation Comments Monocytes # (Auto) (test code = 742-7) 0.7 0.2-0.8 [facility] HospitalEosinophils # (Auto)2019-05-30 05:07:00* Test Item Value Reference Range Interpretation Comments Eosinophils # (Auto) (test code = 711-2) 0.0 0.0-0.4 [facility] HospitalBasophils # (Auto)2019-05-30 05:07:00* Test Item Value Reference Range Interpretation Comments Basophils # (Auto) (test code = 704-7) 0.0 0.0-0.1 [facility] HospitalAbsolute Immature Granulocyte (auto 2019-05-30 05:07:00* Test Item Value Reference Range Interpretation Comments Absolute Immature Granulocyte (auto (anurag t code = Absolute Immature Granulocyte (auto) 0.03 0-0.1 [facility] HospitalWhite Blood Psveg9420-31-23 05:07:00* Test Item Value Reference Range Interpretation Comments White Blood Count (test code = 6690-2) 11.59 4.8-10.8 H [facility] HospitalRed Blood Vothe2491-58-76 05:07:00* Test Item Value Reference Range Interpretation Comments Red Blood Count (test code = 789-8) 3.17 4.3-5.7 L [facility] HospitalHemoglobin2020-02-13 05:07:00* Test Item Value Reference Range Interpretation Comments Hemoglobin (test code = 03778-2) 8.4 14.0-18.0 L [facility] HospitalHematocrit2020-02-13 05:07:00* Test Item Value Reference Range Interpretation Comments Hematocrit (test code = 4544-3) 27.7 38.2-49.6 L [facility] HospitalMean Corpuscular Ggjzmx0364-49-30 05:07:00* Test Item Value Reference Range Interpretation Comments Mean Corpuscular Volume (test code = 787-2) 87.4 81-99 [facility] HospitalMean Corpuscular Nhjkmsojvi3363-29-13 05:07:00* Test Item Value Reference Range Interpretation Comments Mean Corpuscular Hemoglobin (test code = 785-6) 26.5 28-32 L [facility] HospitalMean Corpuscular Hemoglobin Concent 2019-05-30 05:07:00* Test Item Value Reference Range Interpretation Comments Mean Corpuscular Hemoglobin Concent (test code = 786-4) 30.3 31-35 L [facility] HospitalRed Cell Distribution Qmdrk8580-84-61 05:07:00* Test Item Value Reference Range Interpretation Comments Red Cell Distribution Width (test code = 78205-4) 14.7 11.7 -14.4 H [facility] HospitalPlatelet Cqgwk6438-00-41 05:07:00* Test Item Value Reference Range Interpretation Comments Platelet Count (test code = 777-3) 157 140-360 [facility] HospitalNeutrophils (%) (Auto)2019-05-30 05:07:00 * Test Item Value Reference Range Interpretation Comments Neutrophils (%) (Auto) (test code = 81231-5) 55.3 38.7-80.0 [facility] HospitalLymphocytes (%) (Auto)2019-05-30 05:07:00 * Test Item Value Reference Range Interpretation Comments Lymphocytes (%) (Auto) (test code = 736-9) 38.1 18.0-39.1 [facility] HospitalMonocytes (%) (Auto)2019-05-30 05:07:00* Test Item Value Reference Range Interpretation Comments Monocytes (%) (Auto) (test code = 5905-5) 5.7 4.4-11.3 [facility] HospitalEosinophils (%) (Auto)2019-05-30 05:07:00 * Test Item Value Reference Range Interpretation Comments Eosinophils (%) (Auto) (test code = 713-8) 0.3 0.0-6.0 [facility] HospitalBasophils (%) (Auto)2019-05-30 05:07:00* Test Item Value Reference Range Interpretation Comments Basophils (%) (Auto) (test code = 706-2) 0.3 0.0-1.0 [facility] HospitalIM GRANULOCYTES %2019-05-30 05:07:00* Test Item Value Reference Range Interpretation Comments IM GRANULOCYTES % (test code = IM GRANULOCYTES %) 0.3 0.0- 1.0 [facility] HospitalNeutrophils # (Auto)2019-05-30 05:07:00* Test Item Value Reference Range Interpretation Comments Neutrophils # (Auto) (test code = 751-8) 6.4 2.1-6.9 [facility] HospitalLymphocytes # (Auto)2019-05-30 05:07:00* Test Item Value Reference Range Interpretation Comments Lymphocytes # (Auto) (test code = 31169-3) 4.4 1.0-3.2 H [facility] HospitalMonocytes # (Auto)2019-05-30 05:07:00* Test Item Value Reference Range Interpretation Comments Monocytes # (Auto) (test code = 742-7) 0.7 0.2-0.8 [facility] HospitalEosinophils # (Auto)2019-05-30 05:07:00* Test Item Value Reference Range Interpretation Comments Eosinophils # (Auto) (test code = 711-2) 0.0 0.0-0.4 [facility] HospitalBasophils # (Auto)2019-05-30 05:07:00* Test Item Value Reference Range Interpretation Comments Basophils # (Auto) (test code = 704-7) 0.0 0.0-0.1 [facility] HospitalAbsolute Immature Granulocyte (auto 2019-05-30 05:07:00* Test Item Value Reference Range Interpretation Comments Absolute Immature Granulocyte (auto (anurag t code = Absolute Immature Granulocyte (auto) 0.03 0-0.1 [facility] HospitalFluoroscopic procedure less than one hour shfrdgke2665-07-35 03:45:00* Test Item Value Reference Range Interpretation Comments Differential Total Cells Counted (test code = Differen tial Total Cells Counted) 100 [facility] HospitalManual blood neutrophils/100 leukocytes 2019-05-30 03:45:00* Test Item Value Reference Range Interpretation Comments Neutrophils % (Manual) (test code = 82204-2) 62 40-74 [facility] blood lymphocytes/100 leukocytes 2019-05-30 03:45:00* Test Item Value Reference Range Interpretation Comments Lymphocytes % (Manual) (test code = 737-7) 34 19-48 [facility] HospitalManual blood monocytes/100 leukocytes 2019-05-30 03:45:00* Test Item Value Reference Range Interpretation Comments Monocytes % (Manual) (test code = 744-3) 4 3.4-9.0 [facility] HospitalFluoroscopic procedure less than one hour nxcixmaq7713-87-60 03:45:00* Test Item Value Reference Range Interpretation Comments Differential Total Cells Counted (test code = Differen tial Total Cells Counted) 100 [facility] leukocytes 2019-05-30 03:45:00* Test Item Value Reference Range Interpretation Comments Neutrophils % (Manual) (test code = 76401-8) 62 40-74 [facility] lymphocytes/100 leukocytes 2019-05-30 03:45:00* Test Item Value Reference Range Interpretation Comments Lymphocytes % (Manual) (test code = 737-7) 34 19-48 [facility] HospitalManual blood monocytes/100 leukocytes 2019-05-30 03:45:00* Test Item Value Reference Range Interpretation Comments Monocytes % (Manual) (test code = 744-3) 4 3.4-9.0 [facility] Pdjtbixlk4848-78-33 05:49:00* Test Item Value Reference Range Interpretation Comments Total Bilirubin (test code = 1975-2) 0.8 0.2-1.2 [facility] HospitalAspartate Amino Transf (AST/SGOT) 2019-05-29 05:49:00* Test Item Value Reference Range Interpretation Comments Aspartate Amino Transf (AST/SGOT) (test code = Aspartate Amino Transf (AST/SGOT)) 33 5-34 [facility] HospitalAlanine Aminotransferase (ALT/SGPT) 2019-05-29 05:49:00* Test Item Value Reference Range Interpretation Comments Alanine Aminotransferase (ALT/SGPT) (test code = 1742-6) 33 0-55 [facility] Dgeiytb8341-55-50 05:49:00* Test Item Value Reference Range Interpretation Comments Total Protein (test code = 2885-2) 5.6 6.5-8.1 L [facility] HospitalAlbumin2020-02-12 05:49:00* Test Item Value Reference Range Interpretation Comments Albumin (test code = 1751-7) 2.9 3.5-5.0 L [facility] HospitalGlobulin2020-02-12 05:49:00* Test Item Value Reference Range Interpretation Comments Globulin (test code = 82552-6) 2.7 2.3-3.5 [facility] HospitalAlbumin/Globulin Pvhlp2554-46-97 05:49:00 * Test Item Value Reference Range Interpretation Comments Albumin/Globulin Ratio (test code = 1759-0) 1.1 0.8-2.0 [facility] HospitalAlkaline Uopmycuhnwn7406-23-78 05:49:00* Test Item Value Reference Range Interpretation Comments Alkaline Phosphatase (test code = 6768-6) 104 40-150 [facility] HospitalTotal Bdjqqyjei1359-46-63 05:49:00* Test Item Value Reference Range Interpretation Comments Total Bilirubin (test code = 1975-2) 0.8 0.2-1.2 [facility] HospitalAspartate Amino Transf (AST/SGOT) 2019-05-29 05:49:00* Test Item Value Reference Range Interpretation Comments Aspartate Amino Transf (AST/SGOT) (test code = Aspartate Amino Transf (AST/SGOT)) 33 5-34 [facility] HospitalAlanine Aminotransferase (ALT/SGPT) 2019-05-29 05:49:00* Test Item Value Reference Range Interpretation Comments Alanine Aminotransferase (ALT/SGPT) (test code = 1742-6) 33 0-55 [facility] HospitalTotal Yeousof1045-09-40 05:49:00* Test Item Value Reference Range Interpretation Comments Total Protein (test code = 2885-2) 5.6 6.5-8.1 L [facility] HospitalAlbumin2020-02-12 05:49:00* Test Item Value Reference Range Interpretation Comments Albumin (test code = 1751-7) 2.9 3.5-5.0 L [facility] HospitalGlobulin2020-02-12 05:49:00* Test Item Value Reference Range Interpretation Comments Globulin (test code = 00390-0) 2.7 2.3-3.5 [facility] HospitalAlbumin/Globulin Csick0483-45-34 05:49:00 * Test Item Value Reference Range Interpretation Comments Albumin/Globulin Ratio (test code = 1759-0) 1.1 0.8-2.0 [facility] HospitalAlkaline Biyeixsqbzr4032-19-11 05:49:00* Test Item Value Reference Range Interpretation Comments Alkaline Phosphatase (test code = 6768-6) 104 40-150 [facility]2020-02-11 11:23:00* Test Item Value Reference Range Interpretation Comments Ammonia (test code = 25935-0) 126 31-123 H [facility]2020-02-11 11:23:00* Test Item Value Reference Range Interpretation Comments Ammonia (test code = 04197-9) 126 31-123 H [facility] HospitalProthrombin Rqaq3792-34-69 11:11:00* Test Item Value Reference Range Interpretation Comments Prothrombin Time (test code = 5902-2) 15.2 11.9-14.5 H [facility] HospitalProthromb Time International Ratio 2019-05-28 11:11:00* Test Item Value Reference Range Interpretation Comments Prothromb Time International Ratio (test code = 6301-6) 1.13 Oral Anticoagulant Therapy INR Values:1. Low Intensity Therapy 1.5 - 2.02 . Moderate Intensity Therapy 2.0 - 3.03. High Intensity Therapy(1) 2.5 - 3. 54. High Intensity Therapy(2) 3.0 - 4.05. Panic Value INR > 5.0 [facility] HospitalProthrombin Umqk2170-74-52 11:11:00* Test Item Value Reference Range Interpretation Comments Prothrombin Time (test code = 5902-2) 15.2 11.9-14.5 H [facility] HospitalProthromb Time International Ratio 2019-05-28 11:11:00* Test Item Value Reference Range Interpretation Comments Prothromb Time International Ratio (test code = 6301-6) 1.13 Oral Anticoagulant Therapy INR Values:1. Low Intensity Therapy 1.5 - 2.02 . Moderate Intensity Therapy 2.0 - 3.03. High Intensity Therapy(1) 2.5 - 3. 54. High Intensity Therapy(2) 3.0 - 4.05. Panic Value INR > 5.0 [facility]2020-02-11 09:50:00* Test Item Value Reference Range Interpretation Comments Ammonia (test code = 99375-3) 126 31-123 [facility]2020-02-11 09:50:00* Test Item Value Reference Range Interpretation Comments Ammonia (test code = 35047-0) 126 31-123 [facility] HospitalPlatelet Ptzzliqy0637-85-71 21:34:00* Test Item Value Reference Range Interpretation Comments Platelet Estimate (test code = 03196-4) ADEQUATE [facility] HospitalPlatelet Morphology Uwebrls6527-42-75 21:34:00* Test Item Value Reference Range Interpretation Comments Platelet Morphology Comment (test code = 14854-2) NORMAL [facility] HospitalHypochromasia2020-02-10 21:34:00* Test Item Value Reference Range Interpretation Comments Hypochromasia (test code = 728-6) SLIGHT [facility] HospitalRed Cell Morphology Lrptouk6046-72-86 21:34:00* Test Item Value Reference Range Interpretation Comments Red Cell Morphology Comment (test code = 6742-1) NORMAL [facility] HospitalPlatelet Ejlukdrh9560-08-38 21:34:00* Test Item Value Reference Range Interpretation Comments Platelet Estimate (test code = 09588-7) ADEQUATE [facility] HospitalPlatelet Morphology Wrpjskk0488-19-28 21:34:00* Test Item Value Reference Range Interpretation Comments Platelet Morphology Comment (test code = 28288-6) NORMAL [facility] HospitalHypochromasia2020-02-10 21:34:00* Test Item Value Reference Range Interpretation Comments Hypochromasia (test code = 728-6) SLIGHT [facility] HospitalRed Cell Morphology Rfugvxi1693-26-70 21:34:00* Test Item Value Reference Range Interpretation Comments Red Cell Morphology Comment (test code = 6742-1) NORMAL [facility]2020-02-10 20:22:00* Test Item Value Reference Range Interpretation Comments Iron Level (test code = 2498-4) 10 65-175 L [facility] HospitalTotal Iron Binding Zbutehoe2696-27-03 20:22:00* Test Item Value Reference Range Interpretation Comments Total Iron Binding Capacity (test code = 2500-7) 568 261-4 78 H [facility] HospitalPercent Iron Hyyaphrwkh8512-39-09 20:22:00* Test Item Value Reference Range Interpretation Comments Percent Iron Saturation (test code = 2502-3) 2 15-50 L [facility] HospitalTransferrin2020-02-10 20:22:00* Test Item Value Reference Range Interpretation Comments Transferrin (test code = 3034-6) 406 174-364 [facility] Pylxt3250-07-97 20:22:00* Test Item Value Reference Range Interpretation Comments Iron Level (test code = 2498-4) 10 65-175 L [facility] HospitalTotal Iron Binding Gfnwnjrt2026-91-86 20:22:00* Test Item Value Reference Range Interpretation Comments Total Iron Binding Capacity (test code = 2500-7) 568 261-4 78 H [facility] HospitalPercent Iron Ojxflilphr3900-85-00 20:22:00* Test Item Value Reference Range Interpretation Comments Percent Iron Saturation (test code = 2502-3) 2 15-50 L [facility] HospitalTransferrin2020-02-10 20:22:00* Test Item Value Reference Range Interpretation Comments Transferrin (test code = 3034-6) 406 174-364 H [facility] HospitalActivated Partial Thromboplast Time 2019-05-27 20:19:00* Test Item Value Reference Range Interpretation Comments Activated Partial Thromboplast Time (test code = 76621-7) 33.7 23.8-35.5 [facility] HospitalActivated Partial Thromboplast Time 2019-05-27 20:19:00* Test Item Value Reference Range Interpretation Comments Activated Partial Thromboplast Time (test code = 28366-8) 33.7 23.8-35.5 [facility] HospitalBlw[facility] platelets count by estimate (number/volume)2019-05-27 18:55:00* Test Item Value Reference Range Interpretation Comments Platelet Estimate (test code = 48823-0) ADEQUATE [facility] HospitalPlatelet bdexanizul6084-69-80 18:55:00* Test Item Value Reference Range Interpretation Comments Platelet Morphology Comment (test code = 93336-9) NORMAL [facility] hypochromia detection by light mcmtibqutf4373-55-45 18:55:00* Test Item Value Reference Range Interpretation Comments Hypochromasia (test code = 728-6) SLIGHT [facility] HospitalRB wdlucourso8867-39-02 18:55:00* Test Item Value Reference Range Interpretation Comments Red Cell Morphology Comment (test code = 6742-1) NORMAL [facility] iron [facility] (mass/volume)2019-05-27 18:55:00* Test Item Value Reference Range Interpretation Comments Iron Level (test code = 2498-4) 10 65-175 [facility] iron binding capacity measurement (mass/volume)2019-05-27 18:55:00* Test Item Value Reference Range Interpretation Comments Total Iron Binding Capacity (test code = 2500-7) 568 261-4 78 [facility]ererum [facility] plasma iron saturation measurement (mass fraction)2019-05-27 18:55:00* Test Item Value Reference Range Interpretation Comments Percent Iron Saturation (test code = 2502-3) 2 15-50 [facility]ererum [facility] plasma transferrin measurement (mass/volume)2019-05-27 18:55:00* Test Item Value Reference Range Interpretation Comments Transferrin (test code = 3034-6) 406 174-364 [facility] HospitalBlw[facility] platelets count by estimate (number/volume)2019-05-27 18:55:00* Test Item Value Reference Range Interpretation Comments Platelet Estimate (test code = 93284-0) ADEQUATE [facility] HospitalPlatelet lpshsktixu1774-08-88 18:55:00* Test Item Value Reference Range Interpretation Comments Platelet Morphology Comment (test code = 69847-0) NORMAL [facility] HospitalBlood hypochromia detection by light zcrzceohfj9435-28-28 18:55:00* Test Item Value Reference Range Interpretation Comments Hypochromasia (test code = 728-6) SLIGHT [facility] HospitalRBC mtvjqlnvlh7871-56-56 18:55:00* Test Item Value Reference Range Interpretation Comments Red Cell Morphology Comment (test code = 6742-1) NORMAL [facility] iron measurement (mass/volume)2019-05-27 18:55:00* Test Item Value Reference Range Interpretation Comments Iron Level (test code = 2498-4) 10 65-175 [facility]ererum [facility] iron binding capacity measurement (mass/volume)2019-05-27 18:55:00* Test Item Value Reference Range Interpretation Comments Total Iron Binding Capacity (test code = 2500-7) 568 261-4 78 [facility]ererum [facility] plasma iron saturation measurement (mass fraction)2019-05-27 18:55:00* Test Item Value Reference Range Interpretation Comments Percent Iron Saturation (test code = 2502-3) 2 15-50 [facility]ererum or plasma transferrin measurement (mass/volume)2019-05-27 18:55:00* Test Item Value Reference Range Interpretation Comments Transferrin (test code = 3034-6) 406 174-364 [facility] HospitalWhite Blood Hoitk9309-13-44 16:07:00* Test Item Value Reference Range Interpretation Comments White Blood Count (test code = 6690-2) 6.51 4.8-10.8 [facility] HospitalRed Blood Bbsxw3273-50-11 16:07:00* Test Item Value Reference Range Interpretation Comments Red Blood Count (test code = 789-8) 2.41 4.3-5.7 L [facility] HospitalHemoglobin2020-02-06 16:07:00* Test Item Value Reference Range Interpretation Comments Hemoglobin (test code = 63604-1) 6.7 14.0-18.0 LL Results called to ALEC MOORE at 1606 on 05/23/19 by NILTON RAMIREZ. RB O K.[facility] HospitalHematocrit2020-02-06 16:07:00* Test Item Value Reference Range Interpretation Comments Hematocrit (test code = 4544-3) 21.8 38.2-49.6 L [facility] HospitalMean Corpuscular Lipjie2054-12-03 16:07:00* Test Item Value Reference Range Interpretation Comments Mean Corpuscular Volume (test code = 787-2) 90.5 81-99 [facility] HospitalMean Corpuscular Obivzxxvqm6473-15-68 16:07:00* Test Item Value Reference Range Interpretation Comments Mean Corpuscular Hemoglobin (test code = 785-6) 27.8 28-32 L [facility] HospitalMean Corpuscular Hemoglobin Concent 2019-05-23 16:07:00* Test Item Value Reference Range Interpretation Comments Mean Corpuscular Hemoglobin Concent (test code = 786-4) 30.7 31-35 L [facility] HospitalRed Cell Distribution Scghj2461-23-69 16:07:00* Test Item Value Reference Range Interpretation Comments Red Cell Distribution Width (test code = 56332-5) 14.3 11.7 -14.4 [facility] HospitalPlatelet Wqedz6162-01-58 16:07:00* Test Item Value Reference Range Interpretation Comments Platelet Count (test code = 777-3) 135 140-360 L [facility] HospitalNeutrophils (%) (Auto)2019-05-23 16:07:00 * Test Item Value Reference Range Interpretation Comments Neutrophils (%) (Auto) (test code = 70904-2) 30.6 38.7-80.0 L [facility] HospitalLymphocytes (%) (Auto)2019-05-23 16:07:00 * Test Item Value Reference Range Interpretation Comments Lymphocytes (%) (Auto) (test code = 736-9) 53.9 18.0-39.1 H [facility] HospitalMonocytes (%) (Auto)2019-05-23 16:07:00* Test Item Value Reference Range Interpretation Comments Monocytes (%) (Auto) (test code = 5905-5) 8.3 4.4-11.3 [facility] HospitalEosinophils (%) (Auto)2019-05-23 16:07:00 * Test Item Value Reference Range Interpretation Comments Eosinophils (%) (Auto) (test code = 713-8) 6.5 0.0-6.0 H [facility] HospitalBasophils (%) (Auto)2019-05-23 16:07:00* Test Item Value Reference Range Interpretation Comments Basophils (%) (Auto) (test code = 706-2) 0.5 0.0-1.0 [facility] HospitalIM GRANULOCYTES %2019-05-23 16:07:00* Test Item Value Reference Range Interpretation Comments IM GRANULOCYTES % (test code = IM GRANULOCYTES %) 0.2 0.0- 1.0 [facility] HospitalNeutrophils # (Auto)2019-05-23 16:07:00* Test Item Value Reference Range Interpretation Comments Neutrophils # (Auto) (test code = 751-8) 2.0 2.1-6.9 L [facility] HospitalLymphocytes # (Auto)2019-05-23 16:07:00* Test Item Value Reference Range Interpretation Comments Lymphocytes # (Auto) (test code = 50757-8) 3.5 1.0-3.2 H [facility] HospitalMonocytes # (Auto)2019-05-23 16:07:00* Test Item Value Reference Range Interpretation Comments Monocytes # (Auto) (test code = 742-7) 0.5 0.2-0.8 [facility] HospitalEosinophils # (Auto)2019-05-23 16:07:00* Test Item Value Reference Range Interpretation Comments Eosinophils # (Auto) (test code = 711-2) 0.4 0.0-0.4 [facility] HospitalBasophils # (Auto)2019-05-23 16:07:00* Test Item Value Reference Range Interpretation Comments Basophils # (Auto) (test code = 704-7) 0.0 0.0-0.1 [facility] HospitalAbsolute Immature Granulocyte (auto 2019-05-23 16:07:00* Test Item Value Reference Range Interpretation Comments Absolute Immature Granulocyte (auto (anurag t code = Absolute Immature Granulocyte (auto) 0.01 0-0.1 [facility] HospitalDifferential Total Cells Counted 2019-05-23 13:38:00* Test Item Value Reference Range Interpretation Comments Differential Total Cells Counted (test code = Differen tial Total Cells Counted) 100 [facility] HospitalNeutrophils % (Manual)2019-05-23 13:38:00 * Test Item Value Reference Range Interpretation Comments Neutrophils % (Manual) (test code = 44475-3) 36 40-74 L [facility] HospitalLymphocytes % (Manual)2019-05-23 13:38:00 * Test Item Value Reference Range Interpretation Comments Lymphocytes % (Manual) (test code = 737-7) 56 19-48 H [facility] HospitalMonocytes % (Manual)2019-05-23 13:38:00* Test Item Value Reference Range Interpretation Comments Monocytes % (Manual) (test code = 744-3) 4 3.4-9.0 [facility] HospitalEosinophils % (Manual)2019-05-23 13:38:00 * Test Item Value Reference Range Interpretation Comments Eosinophils % (Manual) (test code = 714-6) 4 0-7 [facility] HospitalEosinophils % (Manual)2019-05-23 13:38:00 * Test Item Value Reference Range Interpretation Comments Eosinophils % (Manual) (test code = 714-6) 4 0-7 [facility] HospitalEosinophils % (Manual)2019-05-23 13:38:00 * Test Item Value Reference Range Interpretation Comments Eosinophils % (Manual) (test code = 714-6) 4 0-7 [facility] HospitalProthrombin Oazc6640-43-73 11:50:00* Test Item Value Reference Range Interpretation Comments Prothrombin Time (test code = 5902-2) 13.8 11.9-14.5 [facility] HospitalProthromb Time International Ratio 2019-05-23 11:50:00* Test Item Value Reference Range Interpretation Comments Prothromb Time International Ratio (test code = 6301-6) 1.04 Oral Anticoagulant Therapy INR Values:1. Low Intensity Therapy 1.5 - 2.02 . Moderate Intensity Therapy 2.0 - 3.03. High Intensity Therapy(1) 2.5 - 3. 54. High Intensity Therapy(2) 3.0 - 4.05. Panic Value INR > 5.0 [facility] HospitalActivated Partial Thromboplast Time 2019-05-23 11:50:00* Test Item Value Reference Range Interpretation Comments Activated Partial Thromboplast Time (test code = 83800-7) 34.9 23.8-35.5 [facility]odium Ailpe7986-14-56 11:17:00* Test Item Value Reference Range Interpretation Comments Sodium Level (test code = 2951-2) 137 136-145 [facility] HospitalPotassium Zfxbo4240-64-85 11:17:00* Test Item Value Reference Range Interpretation Comments Potassium Level (test code = 2823-3) 4.0 3.5-5.1 [facility] HospitalChloride Elfpt4283-11-55 11:17:00* Test Item Value Reference Range Interpretation Comments Chloride Level (test code = 2075-0) 105 98-107 [facility] HospitalCarbon Dioxide Gvjwo0160-74-83 11:17:00* Test Item Value Reference Range Interpretation Comments Carbon Dioxide Level (test code = 2028-9) 21 22-29 L [facility] HospitalAnion Frm4251-35-48 11:17:00* Test Item Value Reference Range Interpretation Comments Anion Gap (test code = 07305-2) 15.0 8-16 [facility] HospitalBlood Urea Cxasuxxf1273-63-19 11:17:00* Test Item Value Reference Range Interpretation Comments Blood Urea Nitrogen (test code = 3094-0) 11 7-26 [facility] HospitalCreatinine2020-02-06 11:17:00* Test Item Value Reference Range Interpretation Comments Creatinine (test code = 2160-0) 0.92 0.72-1.25 [facility] HospitalBUN/Creatinine Wgfzb1675-61-51 11:17:00* Test Item Value Reference Range Interpretation Comments BUN/Creatinine Ratio (test code = 3097-3) 12 6-25 [facility] HospitalEstimat Glomerular Filtration Rate 2019-05-23 11:17:00* Test Item Value Reference Range Interpretation Comments Estimat Glomerular Filtration Rate (test code = 871448143) > 60 >60 Ranges were taken from the National Kidney Disease Education Program and the [facility] Kidney Foundation literature.Reference ranges:60 or greater: Imjarx75-56 ( for 3 consecutive months): Chronic kidney disease 15 or less: Kidney failureEastland Memorial HospitalGlucose Hmjem4412-54-57 11:17:00* Test Item Value Reference Range Interpretation Comments Glucose Level (test code = CXA7854) 202 74-118 H [facility] HospitalCalcium Ewmnr8369-43-45 11:17:00* Test Item Value Reference Range Interpretation Comments Calcium Level (test code = 35529-5) 8.6 8.4-10.2 [facility] HospitalTotal Rodpnsiha6896-23-00 11:17:00* Test Item Value Reference Range Interpretation Comments Total Bilirubin (test code = 1975-2) 0.6 0.2-1.2 [facility] HospitalAspartate Amino Transf (AST/SGOT) 2019-05-23 11:17:00* Test Item Value Reference Range Interpretation Comments Aspartate Amino Transf (AST/SGOT) (test code = Aspartate Amino Transf (AST/SGOT)) 35 5-34 H [facility] HospitalAlanine Aminotransferase (ALT/SGPT) 2019-05-23 11:17:00* Test Item Value Reference Range Interpretation Comments Alanine Aminotransferase (ALT/SGPT) (test code = 1742-6) 29 0-55 [facility] HospitalTotal Modzwum6093-91-72 11:17:00* Test Item Value Reference Range Interpretation Comments Total Protein (test code = 2885-2) 6.1 6.5-8.1 L [facility] HospitalAlbumin2020-02-06 11:17:00* Test Item Value Reference Range Interpretation Comments Albumin (test code = 1751-7) 3.2 3.5-5.0 L [facility] HospitalGlobulin2020-02-06 11:17:00* Test Item Value Reference Range Interpretation Comments Globulin (test code = 82210-6) 2.9 2.3-3.5 [facility] HospitalAlbumin/Globulin Pdwmy8089-40-39 11:17:00 * Test Item Value Reference Range Interpretation Comments Albumin/Globulin Ratio (test code = 1759-0) 1.1 0.8-2.0 [facility] HospitalAlkaline Eevhtnkkrox2771-91-19 11:17:00* Test Item Value Reference Range Interpretation Comments Alkaline Phosphatase (test code = 6768-6) 116 40-150 [facility] count as percentage of total bsodsbhuuj0663-10-90 09:40:00* Test Item Value Reference Range Interpretation Comments Eosinophils % (Manual) (test code = 714-6) 4 0-7 [facility] blood eosinophil count as percentage of total fregbdazdl3432-01-35 09:40:00* Test Item Value Reference Range Interpretation Comments Eosinophils % (Manual) (test code = 714-6) 4 0-7 [facility] Vdvmgfb2387-58-75 15:08:00* Test Item Value Reference Range Interpretation Comments Bedside Glucose (test code = 64964-5) 333 70-120 H Meter ID: [id number] Glucose 2019-04-20 15:08:00* Test Item Value Reference Range Interpretation Comments Bedside Glucose (test code = 29321-1) 333 70-120 H Meter ID: [id number] Regional [facility] Center Glucose 2019-04-20 15:08:00* Test Item Value Reference Range Interpretation Comments Bedside Glucose (test code = 79552-9) 333 70-120 H Meter ID: [id number] Hospitals of Providence Sierra CampusCTA TOPE5512-11-89 14:49:00 [facility] [address] [place] [address] Patient Name: CARLITO ROCK MR #: [id number] : 1940 Age/Sex: 78/M Req #: [id number] [facility] Physician: LEOLA PONCE MD Ordered by: SARA OLIVAS MD Report #: [id number] Location: [place] [address] Room/Bed: 2931 Procedure: 0103-[address]/CTA NECK Exam Date: 04/19/19 Exam Time: 1630 REPORT STATUS: Signed EXAMINATION: CT angiogram of the [place] and neck with contrast CLINICAL [...] reasonably achievabl e. CT ANGIOGRAM OF THE NIGHTM[place] OF CID FINDINGS: Atherosclerotic calcifi cation of [...] the cervical ICA distal to the bulb. Calcifie d atherosclerotic changes at the origin of the right vertebral artery results in mild stenoses. The origin of the remaining vessels are patent bilaterally. Right Carotid Artery: Soft and calcified atherosclerotic plaque in the right carotid bifurcation and carotid bulb results in mild stenosis (less anjali n 50%). Otherwise the common carotid, internal and external carotid arteries a t the level of the neck are normal [...] 1501 COPY TO: SARA OLIVAS MD CTA KHYAG8571-21-94 14:49:00 [place] [address] Patient Name: CARLITO ROCK MR #: [id number] : 1940 Age/Sex: 78/M Req #: [id number] Adm Physician: LEOLA PONCE MD Ordered by: SARA OLIVAS MD Report #: [id number] Location: MED/SURG3 Room/Bed: 293 Procedure: 0103-[address]/CTA BRAIN Exam Date: 04/19/19 Exam Time: 1630 REPORT STATUS: Signed EXAMINATION : CT angiogram of the [place] and neck with contrast CLINICAL [...] reasonably achievab le. CT ANGIOGRAM OF THE [place] OF CID FINDINGS: Atherosclerotic calcif ication of [...] measured based on NASCET criteria i.e area o f maximum stenosis compared to the cervical ICA distal to the bulb. Calcifi ed atherosclerotic changes at the origin of the right vertebral artery results in mild stenoses. The origin of the remaining vessels are patent bilaterally. Right Carotid Artery: Soft and calcified atherosclerotic plaque in th e right carotid bifurcation and carotid bulb results in mild stenosis (less th an 50%). Otherwise the common carotid, internal and [...] COPY TO: SARA OLIVAS MD Vitamin B12 Diwxa4914-75-37 21:46:00* Test Item Value Reference Range Interpretation Comments Vitamin B12 Level (test code = 85449-0) [facility] 213-816 H [facility] HospitalVitamin B12 Hsvck1764-33-00 21:46:00* Test Item Value Reference Range Interpretation Comments Vitamin B12 Level (test code = 43025-3) 1037 213-816 H [facility] HospitalVitamin B12 Hmbaw8650-28-00 21:46:00* Test Item Value Reference Range Interpretation Comments Vitamin B12 Level (test code = 50427-3) 1036 213-816 H [facility] HospitalVitamin B12 Abxle0070-28-72 21:46:00* Test Item Value Reference Range Interpretation Comments Vitamin B12 Level (test code = 45830-6) 1037 213-816 H [facility] HospitalVitamin B12 Eosiv8924-43-08 21:46:00* Test Item Value Reference Range Interpretation Comments Vitamin B12 Level (test code = 15679-7) 1037 213-816 H [facility] HospitalTriglycerides Eveqq7519-40-10 21:02:00* Test Item Value Reference Range Interpretation Comments Triglycerides Level (test code = 2571-8) 101 0-149 [facility] HospitalCholesterol Ufvmw0999-12-04 21:02:00* Test Item Value Reference Range Interpretation Comments Cholesterol Level (test code = 2093-3) 196 0-199 Less than 200 mg/dL Low Evpl500 - 239 mg/dL Borderline Njox464 m g/dl and greater High Risk [facility] HospitalLDL Zqekfgfvodf8834-88-72 21:02:00* Test Item Value Reference Range Interpretation Comments LDL Cholesterol (test code = 2089-1) 101 60-130 [facility] HospitalHDL Ksqphllhmdz0785-58-85 21:02:00* Test Item Value Reference Range Interpretation Comments HDL Cholesterol (test code = 2085-9) 75 40-60 H [facility] HospitalCholesterol/HDL Cfzsp6571-45-70 21:02:00 * Test Item Value Reference Range Interpretation Comments Cholesterol/HDL Ratio (test code = 9830-1) 2.6 3.9-4.7 L [facility] HospitalTriglycerides Jjuni9623-24-71 21:02:00* Test Item Value Reference Range Interpretation Comments Triglycerides Level (test code = 2571-8) 101 0-149 [facility] HospitalCholesterol Wzphu6973-58-42 21:02:00* Test Item Value Reference Range Interpretation Comments Cholesterol Level (test code = 2093-3) 196 0-199 Less than 200 mg/dL Low Exhy180 - 239 mg/dL Borderline Wooz395 m g/dl and greater High Risk [facility] HospitalLDL Sgxpxhttskb5751-74-03 21:02:00* Test Item Value Reference Range Interpretation Comments LDL Cholesterol (test code = 2089-1) 101 60-130 [facility] Szhuyxnfhde4096-97-80 21:02:00* Test Item Value Reference Range Interpretation Comments HDL Cholesterol (test code = 2085-9) 75 40-60 H [facility] HospitalCholesterol/HDL Vnuhe8332-02-58 21:02:00 * Test Item Value Reference Range Interpretation Comments Cholesterol/HDL Ratio (test code = 9830-1) 2.6 3.9-4.7 L [facility] HospitalTriglycerides Mkzaa9049-92-88 21:02:00* Test Item Value Reference Range Interpretation Comments Triglycerides Level (test code = 2571-8) 101 0-149 [facility] HospitalCholesterol Wexvu3721-92-20 21:02:00* Test Item Value Reference Range Interpretation Comments Cholesterol Level (test code = 2093-3) 196 0-199 Less than 200 mg/dL Low Elpa745 - 239 mg/dL Borderline Tcjv492 m g/dl and greater High Risk [facility] HospitalLDL Gpapwdpvjlx0371-81-71 21:02:00* Test Item Value Reference Range Interpretation Comments LDL Cholesterol (test code = 2089-1) 101 60-130 [facility] Qvmfjemqztu4365-15-01 21:02:00* Test Item Value Reference Range Interpretation Comments HDL Cholesterol (test code = 2085-9) 75 40-60 H [facility] HospitalCholesterol/HDL Wuooy4938-50-39 21:02:00 * Test Item Value Reference Range Interpretation Comments Cholesterol/HDL Ratio (test code = 9830-1) 2.6 3.9-4.7 L [facility] HospitalTriglycerides Wmfpj5245-43-12 21:02:00* Test Item Value Reference Range Interpretation Comments Triglycerides Level (test code = 2571-8) 101 0-149 [facility] HospitalCholesterol Giqan1635-33-12 21:02:00* Test Item Value Reference Range Interpretation Comments Cholesterol Level (test code = 2093-3) 196 0-199 Less than 200 mg/dL Low Skmb945 - 239 mg/dL Borderline Wzhp821 m g/dl and greater High Risk [facility] HospitalLDL Rrtlkgmtwfk8828-94-00 21:02:00* Test Item Value Reference Range Interpretation Comments LDL Cholesterol (test code = 2089-1) 101 60-130 [facility] Abevluiqgkn4548-48-86 21:02:00* Test Item Value Reference Range Interpretation Comments HDL Cholesterol (test code = 2085-9) 75 40-60 H [facility] HospitalCholesterol/HDL Uezye0150-73-38 21:02:00 * Test Item Value Reference Range Interpretation Comments Cholesterol/HDL Ratio (test code = 9830-1) 2.6 3.9-4.7 L [facility] HospitalTriglycerides Cqxzi7542-09-21 21:02:00* Test Item Value Reference Range Interpretation Comments Triglycerides Level (test code = 2571-8) 101 0-149 [facility] HospitalCholesterol Zhcpy4863-30-12 21:02:00* Test Item Value Reference Range Interpretation Comments Cholesterol Level (test code = 2093-3) 196 0-199 Less than 200 mg/dL Low Hbjr261 - 239 mg/dL Borderline Cewt090 m g/dl and greater High Risk [facility] HospitalLDL Pmwnddjukfa9015-57-74 21:02:00* Test Item Value Reference Range Interpretation Comments LDL Cholesterol (test code = 2089-1) 101 60-130 [facility] HospitalHDL Uyiepalcrbh3355-50-63 21:02:00* Test Item Value Reference Range Interpretation Comments HDL Cholesterol (test code = 2085-9) 75 40-60 H [facility] HospitalCholesterol/HDL Jlaiu3094-17-50 21:02:00 * Test Item Value Reference Range Interpretation Comments Cholesterol/HDL Ratio (test code = 9830-1) 2.6 3.9-4.7 L [facility] HospitalMRI BRAIN IX4467-34-69 16:59:00 [facility] [address] [place] [address] Patient Name: CARLITO ROCK MR #: [id number] : 1940 Age/Sex: 78/M Req #: [id number] Adm Physician: LEOLA PONCE MD Ordered by: DEVANTE COLLINS DO Report #: [id number] Location: MED/SURG3 [facility] Procedure: 0102-00 06 MRI/MRI BRAIN WO Exam Date: Exam Time: [...] parenchymal volume loss. A preliminary report was g leda by Neuroradiology fellow Dr. Keller at 5:08 PM on 04/18/2019. I have revie wed the images and agree with findings in the preliminary report. Signed by : Dr. Maryann Dougherty M.D. on 04/18/2019 8:02 PM Dictated By: MARYANN ANDRADE MD 01 Transcrib ed By: FISH on 04/18/192001 COPY TO: DEVANTE COLLINS DO B- Type Natriuretic Plvdpja7834-86-34 16:46:00* Test Item Value Reference Range Interpretation Comments B-Type Natriuretic Peptide (test code = 37519-2) 34.3 0-100 [facility] HospitalCreatine Kinase SY4369-55-10 16:46:00* Test Item Value Reference Range Interpretation Comments Creatine Kinase MB (test code = 34847-8) 1.70 0-5.0 [place] 08503020-01-02 16:46:00* Test Item Value Reference Range Interpretation Comments Troponin I (test code = IQP7724) 0.059 0-0.300 [facility] HospitalB-Type Natriuretic Zaqumib3801-84-28 16:46:00* Test Item Value Reference Range Interpretation Comments B-Type Natriuretic Peptide (test code = 88821-1) 34.3 0-100 [facility] HospitalCreatine Kinase KP9283-20-57 16:46:00* Test Item Value Reference Range Interpretation Comments Creatine Kinase MB (test code = 32234-6) 1.70 0-5.0 [place] 08[address]3020-01-02 16:46:00* Test Item Value Reference Range Interpretation Comments Troponin I (test code = QQE1642) 0.059 0-0.300 [facility] HospitalB-Type Natriuretic Fkjmdiy1319-51-80 16:46:00* Test Item Value Reference Range Interpretation Comments B-Type Natriuretic Peptide (test code = 76786-6) 34.3 0-100 [facility] HospitalCreatine Kinase LK5146-83-29 16:46:00* Test Item Value Reference Range Interpretation Comments Creatine Kinase MB (test code = 08817-7) 1.70 0-5.0 [place] [address]3020-01-02 16:46:00* Test Item Value Reference Range Interpretation Comments Troponin I (test code = WFQ1512) 0.059 0-0.300 [facility] HospitalB-Type Natriuretic Evbkkhh4316-80-69 16:46:00* Test Item Value Reference Range Interpretation Comments B-Type Natriuretic Peptide (test code = 01379-6) 34.3 0-100 [facility] HospitalCreatine Kinase CN5495-62-80 16:46:00* Test Item Value Reference Range Interpretation Comments Creatine Kinase MB (test code = 29405-8) 1.70 0-5.0 [facility] HospitalTroponin I2619-01-24 16:46:00* Test Item Value Reference Range Interpretation Comments Troponin I (test code = FOO3342) 0.059 0-0.300 [facility] HospitalB-Type Natriuretic Sysmwsr5636-58-68 16:46:00* Test Item Value Reference Range Interpretation Comments B-Type Natriuretic Peptide (test code = 76436-3) 34.3 0-100 [facility] HospitalCreatine Kinase GM8058-84-75 16:46:00* Test Item Value Reference Range Interpretation Comments Creatine Kinase MB (test code = 99975-7) 1.70 0-5.0 [facility] S2930-83-79 16:46:00* Test Item Value Reference Range Interpretation Comments Troponin I (test code = PON5390) 0.059 0-0.300 [facility] Ekgpn1701-91-67 15:53:00* Test Item Value Reference Range Interpretation Comments Sodium Level (test code = 2951-2) 139 136-145 [facility] HospitalPotassium Dydmu2239-85-30 15:53:00* Test Item Value Reference Range Interpretation Comments Potassium Level (test code = 2823-3) 3.6 3.5-5.1 [facility] HospitalChloride Rsocp6385-03-07 15:53:00* Test Item Value Reference Range Interpretation Comments Chloride Level (test code = 2075-0) 102 98-107 [facility] HospitalCarbon Dioxide Usztr0669-96-35 15:53:00* Test Item Value Reference Range Interpretation Comments Carbon Dioxide Level (test code = 2028-9) 25 22-29 [facility] HospitalAnion Puj2272-67-22 15:53:00* Test Item Value Reference Range Interpretation Comments Anion Gap (test code = 22130-2) 15.6 8-16 [facility] HospitalBlood Urea Clrufbwz6720-54-07 15:53:00* Test Item Value Reference Range Interpretation Comments Blood Urea Nitrogen (test code = 3094-0) 9 7-26 [facility] HospitalCreatinine2020-01-02 15:53:00* Test Item Value Reference Range Interpretation Comments Creatinine (test code = 2160-0) 0.86 0.72-1.25 [facility] HospitalBUN/Creatinine Zwjkq3826-27-72 15:53:00* Test Item Value Reference Range Interpretation Comments BUN/Creatinine Ratio (test code = 3097-3) 10 6-25 [facility] HospitalEstimat Glomerular Filtration Rate 2019-04-18 15:53:00* Test Item Value Reference Range Interpretation Comments Estimat Glomerular Filtration Rate (test code = 025617548) > 60 >60 Ranges were taken from the National Kidney Disease Education Program and the [facility] Kid[facility] Foundation literature.Reference ranges:60 or greater: Fkoook50-15 ( for 3 consecutive months): Chronic kidney disease 15 or less: Kidney failureEastland Memorial HospitalGlucose Yrxlf9738-29-23 15:53:00* Test Item Value Reference Range Interpretation Comments Glucose Level (test code = OOZ6376) 95 74-118 [facility] HospitalCalcium Xoijw6441-10-82 15:53:00* Test Item Value Reference Range Interpretation Comments Calcium Level (test code = 51011-3) 9.6 8.4-10.2 [facility] HospitalTotal Tqmilpeps1683-02-59 15:53:00* Test Item Value Reference Range Interpretation Comments Total Bilirubin (test code = 1975-2) 0.7 0.2-1.2 [facility] HospitalAspartate Amino Transf (AST/SGOT) 2019-04-18 15:53:00* Test Item Value Reference Range Interpretation Comments Aspartate Amino Transf (AST/SGOT) (test code = Aspartate Amino Transf (AST/SGOT)) 51 5-34 H [facility] HospitalAlanine Aminotransferase (ALT/SGPT) 2019-04-18 15:53:00* Test Item Value Reference Range Interpretation Comments Alanine Aminotransferase (ALT/SGPT) (test code = 1742-6) 51 0-55 [facility] HospitalTotal Nulaeyg3031-62-30 15:53:00* Test Item Value Reference Range Interpretation Comments Total Protein (test code = 2885-2) 6.9 6.5-8.1 [facility] HospitalAlbumin2020-01-02 15:53:00* Test Item Value Reference Range Interpretation Comments Albumin (test code = 1751-7) 3.5 3.5-5.0 [facility] HospitalGlobulin2020-01-02 15:53:00* Test Item Value Reference Range Interpretation Comments Globulin (test code = 35026-8) 3.4 2.3-3.5 [facility] HospitalAlbumin/Globulin Csqfw5495-59-63 15:53:00 * Test Item Value Reference Range Interpretation Comments Albumin/Globulin Ratio (test code = 1759-0) 1.0 0.8-2.0 [facility] HospitalAlkaline Tmnsyofcekp7994-19-93 15:53:00* Test Item Value Reference Range Interpretation Comments Alkaline Phosphatase (test code = 6768-6) 117 40-150 [facility] HospitalCreatine Ikggwm1960-18-08 15:53:00* Test Item Value Reference Range Interpretation Comments Creatine Kinase (test code = 2157-6) 50 30-200 [facility] Centerodium Wwiwu2981-04-10 15:53:00* Test Item Value Reference Range Interpretation Comments Sodium Level (test code = 2951-2) 139 136-145 [facility] HospitalPotassium Uhvjl8940-08-67 15:53:00* Test Item Value Reference Range Interpretation Comments Potassium Level (test code = 2823-3) 3.6 3.5-5.1 [facility] HospitalChloride Tofpb9876-14-66 15:53:00* Test Item Value Reference Range Interpretation Comments Chloride Level (test code = 2075-0) 102 98-107 [facility] HospitalCarbon Dioxide Xehuq4664-73-55 15:53:00* Test Item Value Reference Range Interpretation Comments Carbon Dioxide Level (test code = 2028-9) 25 22-29 [facility] HospitalAnion Qux0558-15-42 15:53:00* Test Item Value Reference Range Interpretation Comments Anion Gap (test code = 66743-2) 15.6 8-16 [facility] HospitalBlood Urea Hrvinkbc6729-02-36 15:53:00* Test Item Value Reference Range Interpretation Comments Blood Urea Nitrogen (test code = 3094-0) 9 7-26 [facility] HospitalCreatinine2020-01-02 15:53:00* Test Item Value Reference Range Interpretation Comments Creatinine (test code = 2160-0) 0.86 0.72-1.25 [facility] HospitalBUN/Creatinine Eyxoh2048-24-72 15:53:00* Test Item Value Reference Range Interpretation Comments BUN/Creatinine Ratio (test code = 3097-3) 10 6-25 [facility] HospitalEstimat Glomerular Filtration Rate 2019-04-18 15:53:00* Test Item Value Reference Range Interpretation Comments Estimat Glomerular Filtration Rate (test code = 888530263) > 60 >60 Ranges were taken from the National Kidney Disease Education Program and the [place] Kid[employer] Foundation literature.Reference ranges:60 or greater: Dsotcv64-90 ( for 3 consecutive months): Chronic kidney disease 15 or less: Kidney failureEastland Memorial HospitalGlucose Tfrtw2252-73-80 15:53:00* Test Item Value Reference Range Interpretation Comments Glucose Level (test code = SVI0906) 95 74-118 [facility] HospitalCalcium Caahe9901-14-86 15:53:00* Test Item Value Reference Range Interpretation Comments Calcium Level (test code = 40326-8) 9.6 8.4-10.2 [facility] HospitalTotal Neexpvawa4686-53-98 15:53:00* Test Item Value Reference Range Interpretation Comments Total Bilirubin (test code = 1975-2) 0.7 0.2-1.2 [facility] HospitalAspartate Amino Transf (AST/SGOT) 2019-04-18 15:53:00* Test Item Value Reference Range Interpretation Comments Aspartate Amino Transf (AST/SGOT) (test code = Aspartate Amino Transf (AST/SGOT)) 51 5-34 H [facility] HospitalAlanine Aminotransferase (ALT/SGPT) 2019-04-18 15:53:00* Test Item Value Reference Range Interpretation Comments Alanine Aminotransferase (ALT/SGPT) (test code = 1742-6) 51 0-55 [facility] HospitalTotal Clxmtop1150-96-62 15:53:00* Test Item Value Reference Range Interpretation Comments Total Protein (test code = 2885-2) 6.9 6.5-8.1 [facility] HospitalAlbumin2020-01-02 15:53:00* Test Item Value Reference Range Interpretation Comments Albumin (test code = 1751-7) 3.5 3.5-5.0 [facility] HospitalGlobulin2020-01-02 15:53:00* Test Item Value Reference Range Interpretation Comments Globulin (test code = 46251-4) 3.4 2.3-3.5 [facility] HospitalAlbumin/Globulin Racti0877-83-04 15:53:00 * Test Item Value Reference Range Interpretation Comments Albumin/Globulin Ratio (test code = 1759-0) 1.0 0.8-2.0 [facility] HospitalAlkaline Mvkmpgsuilu3302-00-09 15:53:00* Test Item Value Reference Range Interpretation Comments Alkaline Phosphatase (test code = 6768-6) 117 40-150 [facility] HospitalCreatine Obizdf4644-02-42 15:53:00* Test Item Value Reference Range Interpretation Comments Creatine Kinase (test code = 2157-6) 50 30-200 [facility] HospitalCreatine Wbuyye2259-77-95 15:53:00* Test Item Value Reference Range Interpretation Comments Creatine Kinase (test code = 2157-6) 50 30-200 [facility] HospitalCreatine Hpoyvh4048-59-89 15:53:00* Test Item Value Reference Range Interpretation Comments Creatine Kinase (test code = 2157-6) 50 30-200 [facility] HospitalCreatine Khbajk1854-45-80 15:53:00* Test Item Value Reference Range Interpretation Comments Creatine Kinase (test code = 2157-6) 50 30-200 [facility] SINGLE (PORTABLE)2019-04-18 15:51:00 [facility] [address] [place] [address] Patient Name: CARLITO ROCK MR #: [id number] : 1940 Age/Sex: 78/M Req #: [id number] Adm Physician: LEOLA PONCE MD Ordered by: LUCIA SMYTH MACHINE II CUTTER Report #: [id number] [facility]: [facility] Room/Bed: [place] [address] Procedure: 0102-004 2 DX/CHEST SINGLE (PORTABLE) Exam Date: Exam [...] VEGA on 04/18/191551 COPY TO: LUCIA SMYTH MACHINE II CUTTER Activated Partial Thromboplast Sfgu9771-72-09 15:43:00* Test Item Value Reference Range Interpretation Comments Activated Partial Thromboplast Time (test code = 02791-1) 32.9 23.8-35.5 [facility] HospitalActivated Partial Thromboplast Time 2019-04-18 15:43:00* Test Item Value Reference Range Interpretation Comments Activated Partial Thromboplast Time (test code = 80014-3) 32.9 23.8-35.5 [facility] HospitalProthrombin Ffph1319-84-62 15:41:00* Test Item Value Reference Range Interpretation Comments Prothrombin Time (test code = 5902-2) 12.9 11.9-14.5 [facility] HospitalProthromb Time International Ratio 2019-04-18 15:41:00* Test Item Value Reference Range Interpretation Comments Prothromb Time International Ratio (test code = 6301-6) 0.92 Oral Anticoagulant Therapy INR Values:1. Low Intensity Therapy 1.5 - 2.02 . Moderate Intensity Therapy 2.0 - 3.03. High Intensity Therapy(1) 2.5 - 3. 54. High Intensity Therapy(2) 3.0 - 4.05. Panic Value INR > 5.0 [facility] HospitalProthrombin Goxz3107-96-12 15:41:00* Test Item Value Reference Range Interpretation Comments Prothrombin Time (test code = 5902-2) 12.9 11.9-14.5 [facility] HospitalProthromb Time International Ratio 2019-04-18 15:41:00* Test Item Value Reference Range Interpretation Comments Prothromb Time International Ratio (test code = 6301-6) 0.92 Oral Anticoagulant Therapy INR Values:1. Low Intensity Therapy 1.5 - 2.02 . Moderate Intensity Therapy 2.0 - 3.03. High Intensity Therapy(1) 2.5 - 3. 54. High Intensity Therapy(2) 3.0 - 4.05. Panic Value INR > 5.0 [facility] HospitalWhite Blood Dbjwp9386-66-28 15:36:00* Test Item Value Reference Range Interpretation Comments White Blood Count (test code = 6690-2) 7.03 4.8-10.8 [facility] HospitalRed Blood Gfaoo1277-93-01 15:36:00* Test Item Value Reference Range Interpretation Comments Red Blood Count (test code = 789-8) 3.90 4.3-5.7 L [facility] HospitalHemoglobin2020-01-02 15:36:00* Test Item Value Reference Range Interpretation Comments Hemoglobin (test code = 41207-1) 12.0 14.0-18.0 L [facility] HospitalHematocrit2020-01-02 15:36:00* Test Item Value Reference Range Interpretation Comments Hematocrit (test code = 4544-3) 36.6 38.2-49.6 L [facility] HospitalMean Corpuscular Oadkib9540-09-35 15:36:00* Test Item Value Reference Range Interpretation Comments Mean Corpuscular Volume (test code = 787-2) 93.8 81-99 [facility] HospitalMean Corpuscular Dbbzrrsiwc6116-51-80 15:36:00* Test Item Value Reference Range Interpretation Comments Mean Corpuscular Hemoglobin (test code = 785-6) 30.8 28-32 [facility] HospitalMean Corpuscular Hemoglobin Concent 2019-04-18 15:36:00* Test Item Value Reference Range Interpretation Comments Mean Corpuscular Hemoglobin Concent (test code = 786-4) 32.8 31-35 [facility] HospitalRed Cell Distribution Dkoyh8010-43-06 15:36:00* Test Item Value Reference Range Interpretation Comments Red Cell Distribution Width (test code = 92268-1) 13.8 11.7 -14.4 [facility] HospitalPlatelet Xaatr1879-27-18 15:36:00* Test Item Value Reference Range Interpretation Comments Platelet Count (test code = 777-3) 145 140-360 [facility]Neutrophils (%) (Auto)2019-04-18 15:36:00 * Test Item Value Reference Range Interpretation Comments Neutrophils (%) (Auto) (test code = 03035-4) 39.0 38.7-80.0 [facility] HospitalLymphocytes (%) (Auto)2019-04-18 15:36:00 * Test Item Value Reference Range Interpretation Comments Lymphocytes (%) (Auto) (test code = 736-9) 47.5 18.0-39.1 H [facility] HospitalMonocytes (%) (Auto)2019-04-18 15:36:00* Test Item Value Reference Range Interpretation Comments Monocytes (%) (Auto) (test code = 5905-5) 7.8 4.4-11.3 [facility] HospitalEosinophils (%) (Auto)2019-04-18 15:36:00 * Test Item Value Reference Range Interpretation Comments Eosinophils (%) (Auto) (test code = 713-8) 4.7 0.0-6.0 [facility] HospitalBasophils (%) (Auto)2019-04-18 15:36:00* Test Item Value Reference Range Interpretation Comments Basophils (%) (Auto) (test code = 706-2) 0.9 0.0-1.0 [facility] HospitalIM GRANULOCYTES %2019-04-18 15:36:00* Test Item Value Reference Range Interpretation Comments IM GRANULOCYTES % (test code = IM GRANULOCYTES %) 0.1 0.0- 1.0 [facility] HospitalNeutrophils # (Auto)2019-04-18 15:36:00* Test Item Value Reference Range Interpretation Comments Neutrophils # (Auto) (test code = 751-8) 2.7 2.1-6.9 [facility] HospitalLymphocytes # (Auto)2019-04-18 15:36:00* Test Item Value Reference Range Interpretation Comments Lymphocytes # (Auto) (test code = 43492-0) 3.3 1.0-3.2 H [facility] HospitalMonocytes # (Auto)2019-04-18 15:36:00* Test Item Value Reference Range Interpretation Comments Monocytes # (Auto) (test code = 742-7) 0.6 0.2-0.8 [facility] HospitalEosinophils # (Auto)2019-04-18 15:36:00* Test Item Value Reference Range Interpretation Comments Eosinophils # (Auto) (test code = 711-2) 0.3 0.0-0.4 [facility] HospitalBasophils # (Auto)2019-04-18 15:36:00* Test Item Value Reference Range Interpretation Comments Basophils # (Auto) (test code = 704-7) 0.1 0.0-0.1 [facility] HospitalAbsolute Immature Granulocyte (auto 2019-04-18 15:36:00* Test Item Value Reference Range Interpretation Comments Absolute Immature Granulocyte (auto (anurag t code = Absolute Immature Granulocyte (auto) 0.01 0-0.1 [facility] HospitalWhite Blood Omkwe2509-35-97 15:36:00* Test Item Value Reference Range Interpretation Comments White Blood Count (test code = 6690-2) 7.03 4.8-10.8 [facility] HospitalRed Blood Wuhpx5997-13-71 15:36:00* Test Item Value Reference Range Interpretation Comments Red Blood Count (test code = 789-8) 3.90 4.3-5.7 L [facility] HospitalHemoglobin2020-01-02 15:36:00* Test Item Value Reference Range Interpretation Comments Hemoglobin (test code = 75649-3) 12.0 14.0-18.0 L [facility] HospitalHematocrit2020-01-02 15:36:00* Test Item Value Reference Range Interpretation Comments Hematocrit (test code = 4544-3) 36.6 38.2-49.6 L [facility] HospitalMean Corpuscular Cbdtbg9766-81-48 15:36:00* Test Item Value Reference Range Interpretation Comments Mean Corpuscular Volume (test code = 787-2) 93.8 81-99 [facility] HospitalMean Corpuscular Fpgzwzditw6870-28-66 15:36:00* Test Item Value Reference Range Interpretation Comments Mean Corpuscular Hemoglobin (test code = 785-6) 30.8 28-32 [facility] HospitalMean Corpuscular Hemoglobin Concent 2019-04-18 15:36:00* Test Item Value Reference Range Interpretation Comments Mean Corpuscular Hemoglobin Concent (test code = 786-4) 32.8 31-35 [facility] HospitalRed Cell Distribution Zzzlh6501-06-98 15:36:00* Test Item Value Reference Range Interpretation Comments Red Cell Distribution Width (test code = 53335-1) 13.8 11.7 -14.4 [facility] HospitalPlatelet Esvkr7986-17-43 15:36:00* Test Item Value Reference Range Interpretation Comments Platelet Count (test code = 777-3) 145 140-360 [facility] HospitalNeutrophils (%) (Auto)2019-04-18 15:36:00 * Test Item Value Reference Range Interpretation Comments Neutrophils (%) (Auto) (test code = 84564-8) 39.0 38.7-80.0 [facility] HospitalLymphocytes (%) (Auto)2019-04-18 15:36:00 * Test Item Value Reference Range Interpretation Comments Lymphocytes (%) (Auto) (test code = 736-9) 47.5 18.0-39.1 H [facility] HospitalMonocytes (%) (Auto)2019-04-18 15:36:00* Test Item Value Reference Range Interpretation Comments Monocytes (%) (Auto) (test code = 5905-5) 7.8 4.4-11.3 [facility] HospitalEosinophils (%) (Auto)2019-04-18 15:36:00 * Test Item Value Reference Range Interpretation Comments Eosinophils (%) (Auto) (test code = 713-8) 4.7 0.0-6.0 [facility] HospitalBasophils (%) (Auto)2019-04-18 15:36:00* Test Item Value Reference Range Interpretation Comments Basophils (%) (Auto) (test code = 706-2) 0.9 0.0-1.0 [facility] HospitalIM GRANULOCYTES %2019-04-18 15:36:00* Test Item Value Reference Range Interpretation Comments IM GRANULOCYTES % (test code = IM GRANULOCYTES %) 0.1 0.0- 1.0 [facility] HospitalNeutrophils # (Auto)2019-04-18 15:36:00* Test Item Value Reference Range Interpretation Comments Neutrophils # (Auto) (test code = 751-8) 2.7 2.1-6.9 [facility] HospitalLymphocytes # (Auto)2019-04-18 15:36:00* Test Item Value Reference Range Interpretation Comments Lymphocytes # (Auto) (test code = 72281-5) 3.3 1.0-3.2 H [facility] HospitalMonocytes # (Auto)2019-04-18 15:36:00* Test Item Value Reference Range Interpretation Comments Monocytes # (Auto) (test code = 742-7) 0.6 0.2-0.8 [facility] HospitalEosinophils # (Auto)2019-04-18 15:36:00* Test Item Value Reference Range Interpretation Comments Eosinophils # (Auto) (test code = 711-2) 0.3 0.0-0.4 [facility] HospitalBasophils # (Auto)2019-04-18 15:36:00* Test Item Value Reference Range Interpretation Comments Basophils # (Auto) (test code = 704-7) 0.1 0.0-0.1 [facility] HospitalAbsolute Immature Granulocyte (auto 2019-04-18 15:36:00* Test Item Value Reference Range Interpretation Comments Absolute Immature Granulocyte (auto (anurag t code = Absolute Immature Granulocyte (auto) 0.01 0-0.1 [facility] HospitalCT BRAIN AT0442-08-61 14:35:00 [facility] [address] [place] [address] Patient Name: CARLITO ROCK MR #: [id number] : 1940 Age/Sex: 78/M Req #: [id number] Adm Physician: Ordered by: LUCIA SMYTH NP Report #: [id number] Location: ER Room/Bed: Procedure: [id number] CT/CT BRAIN WO Exam Date: Exam Time: [...] for acute ischemia. Signed by: Dr. Meliza aMtias M.D. on 04/18/2019 2:54 PM Dictated By: MELIZA OLIVO MD [id number] Transcrib ed By: FISH on 04/18/19 8190 COPY TO: LUCIA SMYTH NP Serum or plasma triglyceride measurement (mass/volume)2019-04-18 13:42:00* Test Item Value Reference Range Interpretation Comments Triglycerides Level (test code = 2571-8) 101 0-149 [facility] (mass/volume)2019-04-18 13:42:00* Test Item Value Reference Range Interpretation Comments Cholesterol Level (test code = 2093-3) 196 0-199 Less than 200 mg/dL Low Qqgq690 - 239 mg/dL Borderline Rhjs516 m g/dl and greater High Risk [facility]rum [facility] cholesterol in LDL measurement (mass/volume) 2019-04-18 13:42:00* Test Item Value Reference Range Interpretation Comments LDL Cholesterol (test code = 2089-1) 101 60-130 [facility]rum [facility] cholesterol in HDL measurement (mass/volume)2019-04-18 13:42:00* Test Item Value Reference Range Interpretation Comments HDL Cholesterol (test code = 2085-9) 75 40-60 [facility]rum [facility] total cholesterol/cholesterol in HDL mass epzcn5419-82-90 13:42:00* Test Item Value Reference Range Interpretation Comments Cholesterol/HDL Ratio (test code = 9830-1) 2.6 3.9-4.7 [facility] HospitalBNP Pvk-uDfx1587-74-02 13:42:00* Test Item Value Reference Range Interpretation Comments B-Type Natriuretic Peptide (test code = 08772-3) 34.3 0-100 [facility] creatine kinase measurement (enzymatic activity/volume)2019-04-18 13:42:00* Test Item Value Reference Range Interpretation Comments Creatine Kinase (test code = 2157-6) 50 30-200 [facility]ererum [facility] plasma creatine kinase MB measurement (mass/volume)2019-04-18 13:42:00* Test Item Value Reference Range Interpretation Comments Creatine Kinase MB (test code = 70101-2) 1.70 0-5.0 [facility] HospitalTroponin I measurement by highly sensitive enzyme pktynbbojfu4701-64-65 13:42:00* Test Item Value Reference Range Interpretation Comments Troponin I (test code = 70269-5) 0.059 0-0.300 [facility] HospitalBlood cobalamin (vitamin B12) measurement (mass/volume)2019-04-18 13:42:00* Test Item Value Reference Range Interpretation Comments Vitamin B12 Level (test code = 96511-8) 1037 213-816 [facility]ererum [facility] triglyceride measurement (mass/volume)2019-04-18 13:42:00* Test Item Value Reference Range Interpretation Comments Triglycerides Level (test code = 2571-8) 101 0-149 [facility] cholesterol measurement (mass/volume)2019-04-18 13:42:00* Test Item Value Reference Range Interpretation Comments Cholesterol Level (test code = 2093-3) 196 0-199 Less than 200 mg/dL Low Yaad707 - 239 mg/dL Borderline Jtlj816 m g/dl and greater High Risk [facility]ererum [facility] cholesterol in LDL measurement (mass/volume) 2019-04-18 13:42:00* Test Item Value Reference Range Interpretation Comments LDL Cholesterol (test code = 2089-1) 101 60-130 [facility]ererum [facility] cholesterol in HDL measurement (mass/volume)2019-04-18 13:42:00* Test Item Value Reference Range Interpretation Comments HDL Cholesterol (test code = 2085-9) 75 40-60 [facility]ererum [facility] plasma total cholesterol/cholesterol in HDL mass ivsrm8017-45-44 13:42:00* Test Item Value Reference Range Interpretation Comments Cholesterol/HDL Ratio (test code = 9830-1) 2.6 3.9-4.7 [facility] HospitalBNP Vzh-wRqo9509-94-02 13:42:00* Test Item Value Reference Range Interpretation Comments B-Type Natriuretic Peptide (test code = 80823-0) 34.3 0-100 [facility]ererum [facility] creatine kinase measurement (enzymatic activity/volume)2019-04-18 13:42:00* Test Item Value Reference Range Interpretation Comments Creatine Kinase (test code = 2157-6) 50 30-200 [facility]ererum or plasma creatine kinase MB measurement (mass/volume)2019-04-18 13:42:00* Test Item Value Reference Range Interpretation Comments Creatine Kinase MB (test code = 09566-6) 1.70 0-5.0 [facility] HospitalTroponin I measurement by highly sensitive enzyme aobzlkyaqxs8935-81-39 13:42:00* Test Item Value Reference Range Interpretation Comments Troponin I (test code = 65701-6) 0.059 0-0.300 [facility] cobalamin (vitamin B12) measurement (mass/volume)2019-04-18 13:42:00* Test Item Value Reference Range Interpretation Comments Vitamin B12 Level (test code = 33449-3) 1037 213816 [facility] Vjwyank1096-76-06 10:24:00* Test Item Value Reference Range Interpretation Comments Blood Culture (test code = 07924838) NO GROWTH AFTER 5 DAYS, FINAL REPORT [facility] Tzymyte5140-56-44 10:24:00* Test Item Value Reference Range Interpretation Comments Blood Culture (test code = 44845457) NO GROWTH AFTER 5 DAYS, FINAL REPORT [facility] Ilapscg6160-98-26 10:24:00* Test Item Value Reference Range Interpretation Comments Blood Culture (test code = 92591683) NO GROWTH AFTER 5 DAYS, FINAL REPORT [facility] Srnwchv2225-15-84 10:24:00* Test Item Value Reference Range Interpretation Comments Blood Culture (test code = 49642492) NO GROWTH AFTER 5 DAYS, FINAL REPORT [facility] Iezbujg9828-83-64 10:24:00* Test Item Value Reference Range Interpretation Comments Blood Culture (test code = 80781692) NO GROWTH AFTER 5 DAYS, FINAL REPORT [facility] Itkmktk5611-48-33 10:24:00* Test Item Value Reference Range Interpretation Comments Blood Culture (test code = 98280726) NO GROWTH AFTER 5 DAYS, FINAL REPORT [facility] HospitalDifferential Total Cells Counted 2018-12-22 08:43:00* Test Item Value Reference Range Interpretation Comments Differential Total Cells Counted (test code = Differen tial Total Cells Counted) 100 [facility] HospitalNeutrophils % (Manual)2018-12-22 08:43:00 * Test Item Value Reference Range Interpretation Comments Neutrophils % (Manual) (test code = 71296-7) 12 40-74 L [facility] HospitalLymphocytes % (Manual)2018-12-22 08:43:00 * Test Item Value Reference Range Interpretation Comments Lymphocytes % (Manual) (test code = 737-7) 28 19-48 [facility] ([facility])2018-12-22 08:43:00* Test Item Value Reference Range Interpretation Comments Monocytes % (Manual) (test code = 744-3) 4 3.4-9.0 [facility] HospitalEosinophils % (Manual)2018-12-22 08:43:00 * Test Item Value Reference Range Interpretation Comments Eosinophils % (Manual) (test code = 714-6) 56 0-7 H [facility] HospitalPlatelet Wtyfigvk3421-52-33 08:43:00* Test Item Value Reference Range Interpretation Comments Platelet Estimate (test code = 28693-0) MODERATELY DECREASED [facility] HospitalPlatelet Morphology Hsbdmyt0521-72-34 08:43:00* Test Item Value Reference Range Interpretation Comments Platelet Morphology Comment (test code = 30625-7) FEW GIANT [facility] HospitalRed Cell Morphology Hbhiiyw8273-06-32 08:43:00* Test Item Value Reference Range Interpretation Comments Red Cell Morphology Comment (test code = 6742-1) NORMAL [facility] HospitalDifferential Total Cells Counted 2018-12-22 08:43:00* Test Item Value Reference Range Interpretation Comments Differential Total Cells Counted (test code = Differbipin tial Total Cells Counted) 100 [facility] HospitalNeutrophils % (Manual)2018-12-22 08:43:00 * Test Item Value Reference Range Interpretation Comments Neutrophils % (Manual) (test code = 55708-0) 12 40-74 L [facility] HospitalLymphocytes % (Manual)2018-12-22 08:43:00 * Test Item Value Reference Range Interpretation Comments Lymphocytes % (Manual) (test code = 737-7) 28 19-48 [facility] CenterMon[facility] % (Manual)2018-12-22 08:43:00* Test Item Value Reference Range Interpretation Comments Monocytes % (Manual) (test code = 744-3) 4 3.4-9.0 [facility] HospitalEosinophils % (Manual)2018-12-22 08:43:00 * Test Item Value Reference Range Interpretation Comments Eosinophils % (Manual) (test code = 714-6) 56 0-7 H [facility] HospitalPlatelet Ojzswpdk4064-17-25 08:43:00* Test Item Value Reference Range Interpretation Comments Platelet Estimate (test code = 36665-4) MODERATELY DECREASED [facility] HospitalPlatelet Morphology Erbitpy4140-34-07 08:43:00* Test Item Value Reference Range Interpretation Comments Platelet Morphology Comment (test code = 16989-0) FEW GIANT [facility] HospitalRed Cell Morphology Rlcectq4959-73-38 08:43:00* Test Item Value Reference Range Interpretation Comments Red Cell Morphology Comment (test code = 6742-1) NORMAL [facility] HospitalDifferential Total Cells Counted 2018-12-22 08:43:00* Test Item Value Reference Range Interpretation Comments Differential Total Cells Counted (test code = Differbipin tial Total Cells Counted) 100 [facility] HospitalNeutrophils % (Manual)2018-12-22 08:43:00 * Test Item Value Reference Range Interpretation Comments Neutrophils % (Manual) (test code = 22079-7) 12 40-74 L [facility] HospitalLymphocytes % (Manual)2018-12-22 08:43:00 * Test Item Value Reference Range Interpretation Comments Lymphocytes % (Manual) (test code = 737-7) 28 19-48 [facility] HospitalMonocytes % (Manual)2018-12-22 08:43:00* Test Item Value Reference Range Interpretation Comments Monocytes % (Manual) (test code = 744-3) 4 3.4-9.0 [facility] HospitalEosinophils % (Manual)2018-12-22 08:43:00 * Test Item Value Reference Range Interpretation Comments Eosinophils % (Manual) (test code = 714-6) 56 0-7 H [facility] HospitalPlatelet Lrormxsb3105-06-70 08:43:00* Test Item Value Reference Range Interpretation Comments Platelet Estimate (test code = 02275-6) MODERATELY DECREASED [facility] HospitalPlatelet Morphology Hjialsb2712-20-70 08:43:00* Test Item Value Reference Range Interpretation Comments Platelet Morphology Comment (test code = 66104-7) FEW GIANT [facility] HospitalRed Cell Morphology Giyryiq6480-68-92 08:43:00* Test Item Value Reference Range Interpretation Comments Red Cell Morphology Comment (test code = 6742-1) NORMAL [facility] HospitalDifferential Total Cells Counted 2018-12-22 08:43:00* Test Item Value Reference Range Interpretation Comments Differential Total Cells Counted (test code = Differbipin tial Total Cells Counted) 100 [facility] HospitalNeutrophils % (Manual)2018-12-22 08:43:00 * Test Item Value Reference Range Interpretation Comments Neutrophils % (Manual) (test code = 58739-8) 12 40-74 L [facility] HospitalLymphocytes % (Manual)2018-12-22 08:43:00 * Test Item Value Reference Range Interpretation Comments Lymphocytes % (Manual) (test code = 737-7) 28 19-48 [facility] HospitalMonocytes % (Manual)2018-12-22 08:43:00* Test Item Value Reference Range Interpretation Comments Monocytes % (Manual) (test code = 744-3) 4 3.4-9.0 [facility] HospitalEosinophils % (Manual)2018-12-22 08:43:00 * Test Item Value Reference Range Interpretation Comments Eosinophils % (Manual) (test code = 714-6) 56 0-7 H [facility] HospitalPlatelet Avbtdjqt8081-91-46 08:43:00* Test Item Value Reference Range Interpretation Comments Platelet Estimate (test code = 95191-1) MODERATELY DECREASED [facility] HospitalPlatelet Morphology Amaclez3779-81-54 08:43:00* Test Item Value Reference Range Interpretation Comments Platelet Morphology Comment (test code = 61631-6) FEW GIANT [facility] HospitalRed Cell Morphology Slbdhiu7145-46-16 08:43:00* Test Item Value Reference Range Interpretation Comments Red Cell Morphology Comment (test code = 6742-1) NORMAL [facility] HospitalPlatelet Ymbsyuod6079-07-90 08:43:00* Test Item Value Reference Range Interpretation Comments Platelet Estimate (test code = 69088-0) MODERATELY DECREASED [facility] HospitalPlatelet Morphology Lllrnij0813-57-73 08:43:00* Test Item Value Reference Range Interpretation Comments Platelet Morphology Comment (test code = 46839-9) FEW GIANT [facility] HospitalRed Cell Morphology Hersioo5047-87-64 08:43:00* Test Item Value Reference Range Interpretation Comments Red Cell Morphology Comment (test code = 6742-1) NORMAL [facility] HospitalWhite Blood Bthyc3426-47-66 06:18:00* Test Item Value Reference Range Interpretation Comments White Blood Count (test code = 6690-2) 11.36 4.8-10.8 H [facility] HospitalRed Blood Pjfrj8335-23-57 06:18:00* Test Item Value Reference Range Interpretation Comments Red Blood Count (test code = 789-8) 3.67 4.3-5.7 L [facility] HospitalHemoglobin2019-09-07 06:18:00* Test Item Value Reference Range Interpretation Comments Hemoglobin (test code = 94676-7) 8.8 14.0-18.0 L [facility] HospitalHematocrit2019-09-07 06:18:00* Test Item Value Reference Range Interpretation Comments Hematocrit (test code = 4544-3) 28.9 38.2-49.6 L [facility] HospitalMean Corpuscular Kgdmxh5202-55-81 06:18:00* Test Item Value Reference Range Interpretation Comments Mean Corpuscular Volume (test code = 787-2) 78.7 81-99 L [facility] HospitalMean Corpuscular Ehrfjvvwje4387-35-09 06:18:00* Test Item Value Reference Range Interpretation Comments Mean Corpuscular Hemoglobin (test code = 785-6) 24.0 28-32 L [facility] HospitalMean Corpuscular Hemoglobin Concent 2018-12-22 06:18:00* Test Item Value Reference Range Interpretation Comments Mean Corpuscular Hemoglobin Concent (test code = 786-4) 30.4 31-35 L [facility] HospitalRed Cell Distribution Zomku3500-40-99 06:18:00* Test Item Value Reference Range Interpretation Comments Red Cell Distribution Width (test code = 26561-9) 25.1 11.7 -14.4 H [facility] HospitalPlatelet Tgzyd6879-91-10 06:18:00* Test Item Value Reference Range Interpretation Comments Platelet Count (test code = 777-3) 142 140-360 [facility] HospitalNeutrophils (%) (Auto)2018-12-22 06:18:00 * Test Item Value Reference Range Interpretation Comments Neutrophils (%) (Auto) (test code = 91461-1) 11.3 38.7-80.0 L [facility] HospitalLymphocytes (%) (Auto)2018-12-22 06:18:00 * Test Item Value Reference Range Interpretation Comments Lymphocytes (%) (Auto) (test code = 736-9) 27.0 18.0-39.1 [facility] HospitalMonocytes (%) (Auto)2018-12-22 06:18:00* Test Item Value Reference Range Interpretation Comments Monocytes (%) (Auto) (test code = 5905-5) 4.2 4.4-11.3 L [facility] HospitalEosinophils (%) (Auto)2018-12-22 06:18:00 * Test Item Value Reference Range Interpretation Comments Eosinophils (%) (Auto) (test code = 713-8) 57.0 0.0-6.0 H [facility] HospitalBasophils (%) (Auto)2018-12-22 06:18:00* Test Item Value Reference Range Interpretation Comments Basophils (%) (Auto) (test code = 706-2) 0.4 0.0-1.0 [facility] HospitalIM GRANULOCYTES %2018-12-22 06:18:00* Test Item Value Reference Range Interpretation Comments IM GRANULOCYTES % (test code = IM GRANULOCYTES %) 0.1 0.0- 1.0 [facility] HospitalNeutrophils # (Auto)2018-12-22 06:18:00* Test Item Value Reference Range Interpretation Comments Neutrophils # (Auto) (test code = 751-8) 1.3 2.1-6.9 L [facility] HospitalLymphocytes # (Auto)2018-12-22 06:18:00* Test Item Value Reference Range Interpretation Comments Lymphocytes # (Auto) (test code = 74136-7) 3.1 1.0-3.2 [facility] HospitalMonocytes # (Auto)2018-12-22 06:18:00* Test Item Value Reference Range Interpretation Comments Monocytes # (Auto) (test code = 742-7) 0.5 0.2-0.8 [facility] HospitalEosinophils # (Auto)2018-12-22 06:18:00* Test Item Value Reference Range Interpretation Comments Eosinophils # (Auto) (test code = 711-2) 6.5 0.0-0.4 H [facility] HospitalBasophils # (Auto)2018-12-22 06:18:00* Test Item Value Reference Range Interpretation Comments Basophils # (Auto) (test code = 704-7) 0.1 0.0-0.1 [facility] HospitalAbsolute Immature Granulocyte (auto 2018-12-22 06:18:00* Test Item Value Reference Range Interpretation Comments Absolute Immature Granulocyte (auto (anurag t code = Absolute Immature Granulocyte (auto) 0.01 0-0.1 [facility] HospitalWhite Blood Jbrlm3687-99-80 06:18:00* Test Item Value Reference Range Interpretation Comments White Blood Count (test code = 6690-2) 11.36 4.8-10.8 H [facility] HospitalRed Blood Drndn1792-66-58 06:18:00* Test Item Value Reference Range Interpretation Comments Red Blood Count (test code = 789-8) 3.67 4.3-5.7 L [facility] HospitalHemoglobin2019-09-07 06:18:00* Test Item Value Reference Range Interpretation Comments Hemoglobin (test code = 47281-6) 8.8 14.0-18.0 L [facility] HospitalHematocrit2019-09-07 06:18:00* Test Item Value Reference Range Interpretation Comments Hematocrit (test code = 4544-3) 28.9 38.2-49.6 L [facility] HospitalMean Corpuscular Uymdud9971-86-55 06:18:00* Test Item Value Reference Range Interpretation Comments Mean Corpuscular Volume (test code = 787-2) 78.7 81-99 L [facility] HospitalMean Corpuscular Sqcjzqunrl6933-17-36 06:18:00* Test Item Value Reference Range Interpretation Comments Mean Corpuscular Hemoglobin (test code = 785-6) 24.0 28-32 L [facility] HospitalMean Corpuscular Hemoglobin Concent 2018-12-22 06:18:00* Test Item Value Reference Range Interpretation Comments Mean Corpuscular Hemoglobin Concent (test code = 786-4) 30.4 31-35 L [facility] HospitalRed Cell Distribution Ssfer7793-29-79 06:18:00* Test Item Value Reference Range Interpretation Comments Red Cell Distribution Width (test code = 00054-9) 25.1 11.7 -14.4 H [facility] HospitalPlatelet Vmcsh9625-20-63 06:18:00* Test Item Value Reference Range Interpretation Comments Platelet Count (test code = 777-3) 142 140-360 [facility] [facility] ([facility])2018-12-22 06:18:00 * Test Item Value Reference Range Interpretation Comments Neutrophils (%) (Auto) (test code = 21956-2) 11.3 38.7-80.0 L [facility] HospitalLymphocytes (%) (Auto)2018-12-22 06:18:00 * Test Item Value Reference Range Interpretation Comments Lymphocytes (%) (Auto) (test code = 736-9) 27.0 18.0-39.1 [facility] HospitalMonocytes (%) (Auto)2018-12-22 06:18:00* Test Item Value Reference Range Interpretation Comments Monocytes (%) (Auto) (test code = 5905-5) 4.2 4.4-11.3 L [facility] HospitalEosinophils (%) (Auto)2018-12-22 06:18:00 * Test Item Value Reference Range Interpretation Comments Eosinophils (%) (Auto) (test code = 713-8) 57.0 0.0-6.0 H [facility] HospitalBasophils (%) (Auto)2018-12-22 06:18:00* Test Item Value Reference Range Interpretation Comments Basophils (%) (Auto) (test code = 706-2) 0.4 0.0-1.0 [facility] HospitalIM GRANULOCYTES %2018-12-22 06:18:00* Test Item Value Reference Range Interpretation Comments IM GRANULOCYTES % (test code = IM GRANULOCYTES %) 0.1 0.0- 1.0 [facility] HospitalNeutrophils # (Auto)2018-12-22 06:18:00* Test Item Value Reference Range Interpretation Comments Neutrophils # (Auto) (test code = 751-8) 1.3 2.1-6.9 L [facility] HospitalLymphocytes # (Auto)2018-12-22 06:18:00* Test Item Value Reference Range Interpretation Comments Lymphocytes # (Auto) (test code = 65301-3) 3.1 1.0-3.2 [facility] HospitalMonocytes # (Auto)2018-12-22 06:18:00* Test Item Value Reference Range Interpretation Comments Monocytes # (Auto) (test code = 742-7) 0.5 0.2-0.8 [facility] HospitalEosinophils # (Auto)2018-12-22 06:18:00* Test Item Value Reference Range Interpretation Comments Eosinophils # (Auto) (test code = 711-2) 6.5 0.0-0.4 H [facility] HospitalBasophils # (Auto)2018-12-22 06:18:00* Test Item Value Reference Range Interpretation Comments Basophils # (Auto) (test code = 704-7) 0.1 0.0-0.1 [facility] HospitalAbsolute Immature Granulocyte (auto 2018-12-22 06:18:00* Test Item Value Reference Range Interpretation Comments Absolute Immature Granulocyte (auto (anurag t code = Absolute Immature Granulocyte (auto) 0.01 0-0.1 [facility] Yvoejhk7625-39-07 20:16:00* Test Item Value Reference Range Interpretation Comments Bedside Glucose (test code = 94006-8) 238 70-120 H Meter ID: [id number] Medical Centerside Glucose 2018-12-21 20:16:00* Test Item Value Reference Range Interpretation Comments Bedside Glucose (test code = 13488-9) 238 70-120 H Meter ID: [id number] Memorial HospitalBlood Culture 2018-12-21 10:25:00* Test Item Value Reference Range Interpretation Comments Blood Culture (test code = 81531977) NO GROWTH AFTER 48 HOURS [facility] Leozo4737-98-01 06:03:00* Test Item Value Reference Range Interpretation Comments Sodium Level (test code = 2951-2) 138 136-145 [facility] HospitalPotassium Gkpox5510-97-60 06:03:00* Test Item Value Reference Range Interpretation Comments Potassium Level (test code = 2823-3) 3.6 3.5-5.1 [facility] HospitalChloride Dngjz6633-14-26 06:03:00* Test Item Value Reference Range Interpretation Comments Chloride Level (test code = 2075-0) 107 98-107 [facility] HospitalCarbon Dioxide Ggnxv3914-66-51 06:03:00* Test Item Value Reference Range Interpretation Comments Carbon Dioxide Level (test code = 2028-9) 23 22-29 [facility] HospitalAnion Nfb3756-82-51 06:03:00* Test Item Value Reference Range Interpretation Comments Anion Gap (test code = 41990-4) 11.6 8-16 [facility] HospitalBlood Urea Vqvcvjem4233-83-04 06:03:00* Test Item Value Reference Range Interpretation Comments Blood Urea Nitrogen (test code = 3094-0) 8 7-26 [facility] HospitalCreatinine2019-09-06 06:03:00* Test Item Value Reference Range Interpretation Comments Creatinine (test code = 2160-0) 0.86 0.72-1.25 [facility] HospitalBUN/Creatinine Qaodr9124-22-93 06:03:00* Test Item Value Reference Range Interpretation Comments BUN/Creatinine Ratio (test code = 3097-3) 9 6-25 [facility] HospitalEstimat Glomerular Filtration Rate 2018-12-21 06:03:00* Test Item Value Reference Range Interpretation Comments Estimat Glomerular Filtration Rate (test code = 760813413) > 60 >60 Ranges were taken from the National Kidney Disease Education Program and the [facility] Kidney Foundation literature.Reference ranges:60 or greater: Ftrzuy52-06 ( for 3 consecutive months): Chronic kidney disease 15 or less: Kidney failureEastland Memorial HospitalGlucose Vvmza3786-87-98 06:03:00* Test Item Value Reference Range Interpretation Comments Glucose Level (test code = KOS5567) 134 74-118 H [facility] HospitalCalcium Cozlg5296-92-67 06:03:00* Test Item Value Reference Range Interpretation Comments Calcium Level (test code = 04641-0) 8.8 8.4-10.2 [facility]odium Ukjam6073-38-86 06:03:00* Test Item Value Reference Range Interpretation Comments Sodium Level (test code = 2951-2) 138 136-145 [facility] HospitalPotassium Wdxvs1248-18-05 06:03:00* Test Item Value Reference Range Interpretation Comments Potassium Level (test code = 2823-3) 3.6 3.5-5.1 [facility] HospitalChloride Pvgto6109-65-77 06:03:00* Test Item Value Reference Range Interpretation Comments Chloride Level (test code = 2075-0) 107 98-107 [facility] HospitalCarbon Dioxide Vgsjv2579-08-07 06:03:00* Test Item Value Reference Range Interpretation Comments Carbon Dioxide Level (test code = 2028-9) 23 22-29 [facility] HospitalAnion Tig6197-19-22 06:03:00* Test Item Value Reference Range Interpretation Comments Anion Gap (test code = 57997-1) 11.6 8-16 [facility] HospitalBlood Urea Zkcnhtgf5524-60-71 06:03:00* Test Item Value Reference Range Interpretation Comments Blood Urea Nitrogen (test code = 3094-0) 8 7-26 [facility] HospitalCreatinine2019-09-06 06:03:00* Test Item Value Reference Range Interpretation Comments Creatinine (test code = 2160-0) 0.86 0.72-1.25 [facility] HospitalBUN/Creatinine Mvjpc3062-58-60 06:03:00* Test Item Value Reference Range Interpretation Comments BUN/Creatinine Ratio (test code = 3097-3) 9 6- [facility] HospitalEstimat Glomerular Filtration Rate 2018-12-21 06:03:00* Test Item Value Reference Range Interpretation Comments Estimat Glomerular Filtration Rate (test code = 624398145) > 60 >60 Ranges were taken from the National Kidney Disease Education Program and the [facility] Kidney Foundation literature.Reference ranges:60 or greater: Xysehy14-65 ( for 3 consecutive months): Chronic kidney disease 15 or less: Kidney failureEastland Memorial HospitalGlucose Oalko8610-90-90 06:03:00* Test Item Value Reference Range Interpretation Comments Glucose Level (test code = LQG6412) 134 74-118 H [facility] HospitalCalcium Nwnhs5080-38-50 06:03:00* Test Item Value Reference Range Interpretation Comments Calcium Level (test code = 51651-8) 8.8 8.4-10.2 [facility] HospitalPoikilocytosis2019-09-05 08:37:00* Test Item Value Reference Range Interpretation Comments Poikilocytosis (test code = 779-9) MODERATE [facility] HospitalAnisocytosis2019-09-05 08:37:00* Test Item Value Reference Range Interpretation Comments Anisocytosis (test code = 702-1) SLIGHT [facility] HospitalOvalocytes2019-09-05 08:37:00* Test Item Value Reference Range Interpretation Comments Ovalocytes (test code = 774-0) FEW [facility] HospitalElliptocytes2019-09-05 08:37:00* Test Item Value Reference Range Interpretation Comments Elliptocytes (test code = 36533-3) SLIGHT [facility] HospitalPoikilocytosis2019-09-05 08:37:00* Test Item Value Reference Range Interpretation Comments Poikilocytosis (test code = 779-9) MODERATE [facility] HospitalAnisocytosis2019-09-05 08:37:00* Test Item Value Reference Range Interpretation Comments Anisocytosis (test code = 702-1) SLIGHT [facility]2019-09-05 08:37:00* Test Item Value Reference Range Interpretation Comments Ovalocytes (test code = 774-0) FEW [facility]2019-09-05 08:37:00* Test Item Value Reference Range Interpretation Comments Elliptocytes (test code = 06513-5) SLIGHT [facility] HospitalPoikilocytosis2019-09-05 08:37:00* Test Item Value Reference Range Interpretation Comments Poikilocytosis (test code = 779-9) [facility]ATE [facility] 08:37:00* Test Item Value Reference Range Interpretation Comments Anisocytosis (test code = 702-1) SLIGHT [facility] HospitalOvalocytes2019-09-05 08:37:00* Test Item Value Reference Range Interpretation Comments Ovalocytes (test code = 774-0) FEW [facility] HospitalElliptocytes2019-09-05 08:37:00* Test Item Value Reference Range Interpretation Comments Elliptocytes (test code = 50380-3) [facility]IGHT [facility] 08:37:00* Test Item Value Reference Range Interpretation Comments Poikilocytosis (test code = 779-9) MODERATE [facility]2019-09-05 08:37:00* Test Item Value Reference Range Interpretation Comments Anisocytosis (test code = 702-1) SLIGHT [facility] HospitalOvalocytes2019-09-05 08:37:00* Test Item Value Reference Range Interpretation Comments Ovalocytes (test code = 774-0) FEW [facility] HospitalElliptocytes2019-09-05 08:37:00* Test Item Value Reference Range Interpretation Comments Elliptocytes (test code = 62944-5) SLIGHT [facility] HospitalPoikilocytosis2019-09-05 08:37:00* Test Item Value Reference Range Interpretation Comments Poikilocytosis (test code = 779-9) MODERATE [facility] HospitalAnisocytosis2019-09-05 08:37:00* Test Item Value Reference Range Interpretation Comments Anisocytosis (test code = 702-1) SLIGHT [facility]2019-09-05 08:37:00* Test Item Value Reference Range Interpretation Comments Ovalocytes (test code = 774-0) FEW [facility] HospitalElliptocytes2019-09-05 08:37:00* Test Item Value Reference Range Interpretation Comments Elliptocytes (test code = 42702-0) SLIGHT [facility] 08:37:00* Test Item Value Reference Range Interpretation Comments Poikilocytosis (test code = 779-9) MODERATE [facility]ocytosis2019-09-05 08:37:00* Test Item Value Reference Range Interpretation Comments Anisocytosis (test code = 702-1) SLIGHT [facility] HospitalOvalocytes2019-09-05 08:37:00* Test Item Value Reference Range Interpretation Comments Ovalocytes (test code = 774-0) FEW [facility] HospitalElliptocytes2019-09-05 08:37:00* Test Item Value Reference Range Interpretation Comments Elliptocytes (test code = 03293-6) SLIGHT [facility]2019-09-05 08:37:00* Test Item Value Reference Range Interpretation Comments Poikilocytosis (test code = 779-9) MODERATE [facility] HospitalAnisocytosis2019-09-05 08:37:00* Test Item Value Reference Range Interpretation Comments Anisocytosis (test code = 702-1) SLIGHT [facility] HospitalOvalocytes2019-09-05 08:37:00* Test Item Value Reference Range Interpretation Comments Ovalocytes (test code = 774-0) FEW [facility] HospitalElliptocytes2019-09-05 08:37:00* Test Item Value Reference Range Interpretation Comments Elliptocytes (test code = 42527-5) SLIGHT [facility] HospitalCreatine Kinase [id number] 07:59:00* Test Item Value Reference Range Interpretation Comments Creatine Kinase MB (test code = 08303-4) 0.60 0-5.0 [facility] HospitalTroponin Q7131-00-30 07:59:00* Test Item Value Reference Range Interpretation Comments Troponin I (test code = GBT1103) 0.006 0-0.300 [facility] HospitalCreatine Kinase RW0692-12-66 07:59:00* Test Item Value Reference Range Interpretation Comments Creatine Kinase MB (test code = 10395-4) 0.60 0-5.0 [place] 08503019-09-05 07:59:00* Test Item Value Reference Range Interpretation Comments Troponin I (test code = MRL2987) 0.006 0-0.300 [facility] HospitalCreatine Wuhcvz5703-16-58 07:53:00* Test Item Value Reference Range Interpretation Comments Creatine Kinase (test code = 2157-6) 46 30-200 [facility] HospitalCreatine Qnruqk4478-59-85 07:53:00* Test Item Value Reference Range Interpretation Comments Creatine Kinase (test code = 2157-6) 46 30-200 [facility] HospitalClostridium Difficile Toxin A & B 2018-12-20 06:33:00* Test Item Value Reference Range Interpretation Comments Clostridium Difficile Toxin A & B (test code = 447070920) NEGATIVE NEGATIVE Testing on stool aspirate specimens is outside director client claims since specime n type not validated on this assay.[facility] Clostridium Difficile Toxin A & [id number] 06:33:00* Test Item Value Reference Range Interpretation Comments Clostridium Difficile Toxin A & B (test code = 263590573) NEGATIVE NEGATIVE Testing on stool aspirate specimens is outside director client claims since specime n type not validated on this assay.[facility] Clostridium Difficile Toxin A & [id number] 06:33:00* Test Item Value Reference Range Interpretation Comments Clostridium Difficile Toxin A & B (test code = 649708163) NEGATIVE NEGATIVE Testing on stool aspirate specimens is outside director client claims since specime n type not validated on this assay.[facility] Clostridium Difficile Toxin A & [id number] 06:33:00* Test Item Value Reference Range Interpretation Comments Clostridium Difficile Toxin A & B (test code = 290591058) NEGATIVE NEGATIVE Testing on stool aspirate specimens is outside director client claims since specime n type not validated on this assay.[facility] Clostridium Difficile Toxin A & [id number] 06:33:00* Test Item Value Reference Range Interpretation Comments Clostridium Difficile Toxin A & B (test code = 943214293) NEGATIVE NEGATIVE Testing on stool aspirate specimens is outside director client claims since specime n type not validated on this assay.[facility] Clostridium Difficile Toxin A & [id number] 06:33:00* Test Item Value Reference Range Interpretation Comments Clostridium Difficile Toxin A & B (test code = 929864336) NEGATIVE NEGATIVE Testing on stool aspirate specimens is outside director client claims since specime n type not validated on this assay.[facility] Clostridium Difficile Toxin A & [id number] 06:33:00* Test Item Value Reference Range Interpretation Comments Clostridium Difficile Toxin A & B (test code = 462487686) NEGATIVE NEGATIVE Testing on stool aspirate specimens is outside director client claims since specime n type not validated on this assay.[facility] HospitalTotal Morufduzp9481-47-81 06:09:00* Test Item Value Reference Range Interpretation Comments Total Bilirubin (test code = 1975-2) 1.0 0.2-1.2 [facility] HospitalAspartate Amino Transf (AST/SGOT) 2018-12-20 06:09:00* Test Item Value Reference Range Interpretation Comments Aspartate Amino Transf (AST/SGOT) (test code = Aspartate Amino Transf (AST/SGOT)) 20 5-34 [facility] HospitalAlanine Aminotransferase (ALT/SGPT) 2018-12-20 06:09:00* Test Item Value Reference Range Interpretation Comments Alanine Aminotransferase (ALT/SGPT) (test code = 1742-6) 15 0-55 [facility] HospitalTotal Muyvhku0781-56-30 06:09:00* Test Item Value Reference Range Interpretation Comments Total Protein (test code = 2885-2) 5.2 6.5-8.1 L [facility] HospitalAlbumin2019-09-05 06:09:00* Test Item Value Reference Range Interpretation Comments Albumin (test code = 1751-7) 2.8 3.5-5.0 L [facility] HospitalGlobulin2019-09-05 06:09:00* Test Item Value Reference Range Interpretation Comments Globulin (test code = 68811-5) 2.4 2.3-3.5 [facility] HospitalAlbumin/Globulin Btpdt7717-75-95 06:09:00 * Test Item Value Reference Range Interpretation Comments Albumin/Globulin Ratio (test code = 1759-0) 1.2 0.8-2.0 [facility] HospitalAlkaline Vktpafzoabd0426-91-03 06:09:00* Test Item Value Reference Range Interpretation Comments Alkaline Phosphatase (test code = 6768-6) 82 40-150 [facility] HospitalLipase2019-09-05 06:09:00* Test Item Value Reference Range Interpretation Comments Lipase (test code = 3040-3) 25 8-78 [facility] HospitalTotal Yoyhotobb0883-80-76 06:09:00* Test Item Value Reference Range Interpretation Comments Total Bilirubin (test code = 1975-2) 1.0 0.2-1.2 [facility] HospitalAspartate Amino Transf (AST/SGOT) 2018-12-20 06:09:00* Test Item Value Reference Range Interpretation Comments Aspartate Amino Transf (AST/SGOT) (test code = Aspartate Amino Transf (AST/SGOT)) 20 5-34 [facility] HospitalAlanine Aminotransferase (ALT/SGPT) 2018-12-20 06:09:00* Test Item Value Reference Range Interpretation Comments Alanine Aminotransferase (ALT/SGPT) (test code = 1742-6) 15 0-55 [facility] HospitalTotal Rnuxcmi0516-61-71 06:09:00* Test Item Value Reference Range Interpretation Comments Total Protein (test code = 2885-2) 5.2 6.5-8.1 L [facility] HospitalAlbumin2019-09-05 06:09:00* Test Item Value Reference Range Interpretation Comments Albumin (test code = 1751-7) 2.8 3.5-5.0 L [facility] HospitalGlobulin2019-09-05 06:09:00* Test Item Value Reference Range Interpretation Comments Globulin (test code = 64786-2) 2.4 2.3-3.5 [facility] HospitalAlbumin/Globulin Fkcsf3018-19-54 06:09:00 * Test Item Value Reference Range Interpretation Comments Albumin/Globulin Ratio (test code = 1759-0) 1.2 0.8-2.0 [facility] HospitalAlkaline Eqrtmnjieaj0427-31-50 06:09:00* Test Item Value Reference Range Interpretation Comments Alkaline Phosphatase (test code = 6768-6) 82 40-150 [facility] HospitalLipase2019-09-05 06:09:00* Test Item Value Reference Range Interpretation Comments Lipase (test code = 3040-3) [facility] HospitalLipase2019-09-05 06:09:00* Test Item Value Reference Range Interpretation Comments Lipase (test code = 3040-3) [facility] HospitalLipase2019-09-05 06:09:00* Test Item Value Reference Range Interpretation Comments Lipase (test code = 3040-3) [facility] HospitalLipase2019-09-05 06:09:00* Test Item Value Reference Range Interpretation Comments Lipase (test code = 3040-3) [facility] HospitalLipase2019-09-05 06:09:00* Test Item Value Reference Range Interpretation Comments Lipase (test code = 3040-3) [facility] HospitalLipase2019-09-05 06:09:00* Test Item Value Reference Range Interpretation Comments Lipase (test code = 3040-3) [facility] HospitalBand Neutrophils %2018-12-19 19:42:00* Test Item Value Reference Range Interpretation Comments Band Neutrophils % (test code = 764-1) 1 [facility] HospitalBasophils % (Manual)2018-12-19 19:42:00* Test Item Value Reference Range Interpretation Comments Basophils % (Manual) (test code = 12385-7) 1 0-1.5 [facility] HospitalReactive Brlzzjcnelc1525-02-29 19:42:00* Test Item Value Reference Range Interpretation Comments Reactive Lymphocytes (test code = 60857-5) 4 [facility] HospitalHypochromasia2019-09-04 19:42:00* Test Item Value Reference Range Interpretation Comments Hypochromasia (test code = 728-6) [facility]-19 19:42:00* Test Item Value Reference Range Interpretation Comments Band Neutrophils % (test code = 764-1) 1 [facility] HospitalBasophils % (Manual)2018-12-19 19:42:00* Test Item Value Reference Range Interpretation Comments Basophils % (Manual) (test code = 82101-1) 1 0-1.5 [facility] HospitalReactive Qauwefsqjup7940-40-74 19:42:00* Test Item Value Reference Range Interpretation Comments Reactive Lymphocytes (test code = 74823-8) 4 [facility] 19:42:00* Test Item Value Reference Range Interpretation Comments Hypochromasia (test code = 728-6) [facility]Band [facility] %2018-12-19 19:42:00* Test Item Value Reference Range Interpretation Comments Band Neutrophils % (test code = 764-1) 1 [facility] HospitalBasophils % (Manual)2018-12-19 19:42:00* Test Item Value Reference Range Interpretation Comments Basophils % (Manual) (test code = 87063-8) 1 0-1.5 [facility] HospitalReactive Uwkehfetiul7425-31-59 19:42:00* Test Item Value Reference Range Interpretation Comments Reactive Lymphocytes (test code = 49380-1) 4 [facility] HospitalHypochromasia2019-09-04 19:42:00* Test Item Value Reference Range Interpretation Comments Hypochromasia (test code = 728-6) [facility] %2018-12-19 19:42:00* Test Item Value Reference Range Interpretation Comments Band Neutrophils % (test code = 764-1) 1 [facility] HospitalBasophils % (Manual)2018-12-19 19:42:00* Test Item Value Reference Range Interpretation Comments Basophils % (Manual) (test code = 55186-2) 1 0-1.5 [facility] HospitalRe[facility] Haxrutjuqqv8063-11-45 19:42:00* Test Item Value Reference Range Interpretation Comments Reactive Lymphocytes (test code = 90129-4) 4 [facility]* Test Item Value Reference Range Interpretation Comments Hypochromasia (test code = 728-6) [facility]ils %2018-12-19 19:42:00* Test Item Value Reference Range Interpretation Comments Band Neutrophils % (test code = 764-1) 1 [facility] HospitalBasophils % (Manual)2018-12-19 19:42:00* Test Item Value Reference Range Interpretation Comments Basophils % (Manual) (test code = 42715-3) 1 0-1.5 [facility] HospitalReactive Myyqegeovxl1591-05-21 19:42:00* Test Item Value Reference Range Interpretation Comments Reactive Lymphocytes (test code = 57934-2) 4 [facility] HospitalHypochromasia2019-09-04 19:42:00* Test Item Value Reference Range Interpretation Comments Hypochromasia (test code = 728-6) SLIG [facility] HospitalBand Neutrophils %2018-12-19 19:42:00* Test Item Value Reference Range Interpretation Comments Band Neutrophils % (test code = 764-1) 1 [facility] HospitalBasophils % (Manual)2018-12-19 19:42:00* Test Item Value Reference Range Interpretation Comments Basophils % (Manual) (test code = 91862-3) 1 0-1.5 [facility] HospitalReactive Xhxuttqxqkm3538-16-92 19:42:00* Test Item Value Reference Range Interpretation Comments Reactive Lymphocytes (test code = 20949-9) 4 [facility] HospitalBand Neutrophils %2018-12-19 19:42:00* Test Item Value Reference Range Interpretation Comments Band Neutrophils % (test code = 764-1) 1 [facility] HospitalBasophils % (Manual)2018-12-19 19:42:00* Test Item Value Reference Range Interpretation Comments Basophils % (Manual) (test code = 63507-9) 1 0-1.5 [facility] HospitalReactive Hcajgpcvjgg4956-17-71 19:42:00* Test Item Value Reference Range Interpretation Comments Reactive Lymphocytes (test code = 39480-2) 4 [facility] HospitalLactic Acid Vfrtg6245-82-42 14:20:00* Test Item Value Reference Range Interpretation Comments Lactic Acid Level (test code = Lactic Acid Level) 16.5 4.5- 19.8 [facility] HospitalLactic Acid Bgfub9556-15-90 14:20:00* Test Item Value Reference Range Interpretation Comments Lactic Acid Level (test code = Lactic Acid Level) 16.5 4.5- 19.8 [facility] HospitalLactic Acid Vbjvx9091-65-97 14:20:00* Test Item Value Reference Range Interpretation Comments Lactic Acid Level (test code = Lactic Acid Level) 16.5 4.5- 19.8 [facility] HospitalLactic Acid Fcdzu5064-42-04 14:20:00* Test Item Value Reference Range Interpretation Comments Lactic Acid Level (test code = Lactic Acid Level) 16.5 4.5- 19.8 [facility] HospitalLactic Acid Hwvrp0067-91-84 14:20:00* Test Item Value Reference Range Interpretation Comments Lactic Acid Level (test code = Lactic Acid Level) 16.5 4.5- 19.8 [facility] HospitalLakyic Acid Vlmrd3740-03-04 14:20:00* Test Item Value Reference Range Interpretation Comments Lactic Acid Level (test code = Lactic Acid Level) 16.5 4.5- 19.8 [facility] HospitalLakyic Acid Zcntt7186-50-07 14:20:00* Test Item Value Reference Range Interpretation Comments Lactic Acid Level (test code = Lactic Acid Level) 16.5 4.5- 19.8 [facility] [id number] 12:00:00 [facility] [address] [place] [address] Patient Name: CARLITO ROCK MR #: [id number] : 942 Age/Sex: 78/M Req #: [id number] Adm Physician: LEOLA PONCE MD Ordered by: SALLIE ANDRE MD, MD Report #: [id number] Location: [facility] Room/Bed: [place] [address] Procedure: 0904-[address]/CT ABDOMEN/PELVIS W Exam [...] 12/19/18 1208 COPY TO: SALLIE ANDRE Magnesium Nezyq9203-12-26 11:09:00* Test Item Value Reference Range Interpretation Comments Magnesium Level (test code = 69460-9) 1.7 1.3-2.1 [facility]2019-09-04 11:09:00* Test Item Value Reference Range Interpretation Comments Magnesium Level (test code = 10569-1) 1.7 1.3-2.1 [facility]2019-09-04 11:09:00* Test Item Value Reference Range Interpretation Comments Magnesium Level (test code = 70594-7) 1.7 1.3-2.1 [facility]2019-09-04 11:09:00* Test Item Value Reference Range Interpretation Comments Magnesium Level (test code = 47144-9) 1.7 1.3-2.1 [facility]2019-09-04 11:09:00* Test Item Value Reference Range Interpretation Comments Magnesium Level (test code = 57375-4) 1.7 1.3-2.1 [facility]2019-09-04 11:09:00* Test Item Value Reference Range Interpretation Comments Magnesium Level (test code = 56927-8) 1.7 1.3-2.1 [facility]2019-09-04 11:09:00* Test Item Value Reference Range Interpretation Comments Magnesium Level (test code = 60437-1) 1.7 1.3-2.1 [facility] Bycuazu1486-58-29 10:56:00* Test Item Value Reference Range Interpretation Comments B-Type Natriuretic Peptide (test code = 51808-6) 16.0 0-100 [facility] Rlqodif0133-20-22 10:56:00* Test Item Value Reference Range Interpretation Comments B-Type Natriuretic Peptide (test code = 11438-2) 16.0 0-100 [facility] RWD7231-35-36 09:59:00* Test Item Value Reference Range Interpretation Comments Urine WBC (test code = 5821-4) 6-10 0-5 H [facility] ILY2960-58-06 09:59:00* Test Item Value Reference Range Interpretation Comments Urine RBC (test code = 16090-5) 0-5 0-5 [facility] Lozyluai4983-48-16 09:59:00* Test Item Value Reference Range Interpretation Comments Urine Bacteria (test code = 26522-8) MODERATE NONE [facility] Epithelial Keaxf1065-79-09 09:59:00 * Test Item Value Reference Range Interpretation Comments Urine Epithelial Cells (test code = 70575-0) MODERATE NONE [facility] Kxmzw2978-45-47 09:59:00* Test Item Value Reference Range Interpretation Comments Urine Mucus (test code = 8247-9) MANY RARE H [facility] JHW1917-06-96 09:59:00* Test Item Value Reference Range Interpretation Comments Urine WBC (test code = 5821-4) 6-10 0-5 [facility] SXZ1121-79-75 09:59:00* Test Item Value Reference Range Interpretation Comments Urine RBC (test code = 43504-9) 0-5 0-5 [facility] Xbaetodo1769-34-68 09:59:00* Test Item Value Reference Range Interpretation Comments Urine Bacteria (test code = 65898-1) MODERATE NONE [facility] Ijcko0175-70-75 09:59:00 * Test Item Value Reference Range Interpretation Comments Urine Epithelial Cells (test code = 79672-5) MODERATE NONE [facility] Ohcji4748-60-22 09:59:00* Test Item Value Reference Range Interpretation Comments Urine Mucus (test code = 8247-9) MANY RARE H [facility] TPB1753-34-85 09:59:00* Test Item Value Reference Range Interpretation Comments Urine WBC (test code = 5821-4) 6-10 0-5 [facility] DKX3617-06-81 09:59:00* Test Item Value Reference Range Interpretation Comments Urine RBC (test code = 97925-2) 0-5 0-5 [facility] Otxneknu0052-40-57 09:59:00* Test Item Value Reference Range Interpretation Comments Urine Bacteria (test code = 47117-3) MODERATE NONE [facility] Epithelial Xazov2027-49-75 09:59:00 * Test Item Value Reference Range Interpretation Comments Urine Epithelial Cells (test code = 54076-3) MODERATE NONE [facility] Jnaqv6638-53-15 09:59:00* Test Item Value Reference Range Interpretation Comments Urine Mucus (test code = 8247-9) MANY RARE H [facility] LNO7335-70-83 09:59:00* Test Item Value Reference Range Interpretation Comments Urine WBC (test code = 5821-4) 6-10 0-5 [facility] ESY5158-89-30 09:59:00* Test Item Value Reference Range Interpretation Comments Urine RBC (test code = 34987-1) 0-5 0-5 [facility] Lcznrzsq2135-46-10 09:59:00* Test Item Value Reference Range Interpretation Comments Urine Bacteria (test code = 26225-7) MODERATE NONE [facility] Epithelial Stqas1482-73-65 09:59:00 * Test Item Value Reference Range Interpretation Comments Urine Epithelial Cells (test code = 68975-3) MODERATE NONE [facility] Ujzsk8099-62-97 09:59:00* Test Item Value Reference Range Interpretation Comments Urine Mucus (test code = 8247-9) MANY RARE H [facility] BYG5194-44-62 09:59:00* Test Item Value Reference Range Interpretation Comments Urine WBC (test code = 5821-4) 6-10 0-5 [facility] EPM9400-83-15 09:59:00* Test Item Value Reference Range Interpretation Comments Urine RBC (test code = 62560-8) 0-5 0-5 [facility] Ymtdoxzy4384-97-44 09:59:00* Test Item Value Reference Range Interpretation Comments Urine Bacteria (test code = 18012-3) MODERATE NONE [facility]helial Mztcu6376-76-20 09:59:00 * Test Item Value Reference Range Interpretation Comments Urine Epithelial Cells (test code = 86701-0) MODERATE NONE [facility] Bzqqw3824-70-00 09:59:00* Test Item Value Reference Range Interpretation Comments Urine Mucus (test code = 8247-9) MANY RARE H [facility] RBI4207-35-86 09:59:00* Test Item Value Reference Range Interpretation Comments Urine WBC (test code = 5821-4) 6-10 0-5 [facility] XBK2661-66-40 09:59:00* Test Item Value Reference Range Interpretation Comments Urine RBC (test code = 18983-6) 0-5 0-5 [facility] Hsjipkqk9843-16-63 09:59:00* Test Item Value Reference Range Interpretation Comments Urine Bacteria (test code = 59402-2) MODERATE NONE [facility]helial Rzlxc4227-67-48 09:59:00 * Test Item Value Reference Range Interpretation Comments Urine Epithelial Cells (test code = 26160-3) MODERATE NONE [facility] Mxhkb9633-75-26 09:59:00* Test Item Value Reference Range Interpretation Comments Urine Mucus (test code = 8247-9) MANY RARE H [facility] QEF0250-40-96 09:59:00* Test Item Value Reference Range Interpretation Comments Urine WBC (test code = 5821-4) 6-10 0-5 [facility] WRT0208-77-35 09:59:00* Test Item Value Reference Range Interpretation Comments Urine RBC (test code = 04113-9) 0-5 0-5 [facility] Bjapoyge4641-47-06 09:59:00* Test Item Value Reference Range Interpretation Comments Urine Bacteria (test code = 58428-4) MODERATE NONE [facility] Ep[facility]helial Vohvz2496-47-83 09:59:00 * Test Item Value Reference Range Interpretation Comments Urine Epithelial Cells (test code = 51812-2) MODERATE NONE [facility] Enwvm0495-74-93 09:59:00* Test Item Value Reference Range Interpretation Comments Urine Mucus (test code = 8247-9) MANY RARE H [facility] Tbmjs1989-72-41 09:49:00* Test Item Value Reference Range Interpretation Comments Urine Color (test code = 5778-6) OR[facility] YELLOW [facility] Xhrsobn6502-99-36 09:49:00* Test Item Value Reference Range Interpretation Comments Urine Clarity (test code = 74047-6) SL CLOUDY CLEAR [facility] Specific Cuhrgyb1118-97-39 09:49:00 * Test Item Value Reference Range Interpretation Comments Urine Specific [place] (test code = 5811-5) >=1.030 1.010-1.02 5 [facility] wN9131-99-65 09:49:00* Test Item Value Reference Range Interpretation Comments Urine pH (test code = 60417-1) 6 5-7 [facility] Leukocyte Hfsfsgvh0336-06-98 09:49:00* Test Item Value Reference Range Interpretation Comments Urine Leukocyte Esterase (test code = 64110-0) NEGATIVE NEGATIV E [facility] Xmchbbp4554-42-90 09:49:00* Test Item Value Reference Range Interpretation Comments Urine Nitrite (test code = 31817-3) NEGATIVE NEGATIVE [facility] Fbinfts5808-36-61 09:49:00* Test Item Value Reference Range Interpretation Comments Urine Protein (test code = 48404-1) 1+ NEGATIVE H [facility] Glucose (UA)2018-12-19 09:49:00* Test Item Value Reference Range Interpretation Comments Urine Glucose (UA) (test code = 83022-8) NEGATIVE NEGATIVE [facility] Kmnirqt8510-70-36 09:49:00* Test Item Value Reference Range Interpretation Comments Urine Ketones (test code = 90141-5) 1+ NEGATIVE H [facility] Fdiwhxryydnh0890-70-02 09:49:00* Test Item Value Reference Range Interpretation Comments Urine Urobilinogen (test code = 06633-6) 0.2 0.2-1 [facility] Bhlwaptvk5290-03-61 09:49:00* Test Item Value Reference Range Interpretation Comments Urine Bilirubin (test code = 1977-8) NEGATIVE NEGATIVE [facility] Baivc2188-64-66 09:49:00* Test Item Value Reference Range Interpretation Comments Urine Blood (test code = 96017-7) NEGATIVE NEGATIVE [facility] Cbjtr5098-10-36 09:49:00* Test Item Value Reference Range Interpretation Comments Urine Color (test code = 5778-6) ORANGE YELLOW H [facility] Zbfwjiz6112-90-10 09:49:00* Test Item Value Reference Range Interpretation Comments Urine Clarity (test code = 07670-8) SL CLOUDY CLEAR H [facility] Specific Nulfnor0451-69-52 09:49:00 * Test Item Value Reference Range Interpretation Comments Urine Specific [place] (test code = 5811-5) >=1.030 1.010-1.02 5 [facility] eB2918-22-23 09:49:00* Test Item Value Reference Range Interpretation Comments Urine pH (test code = 52848-8) 6 5-7 [facility] Leukocyte Mfaxuxqa6712-78-06 09:49:00* Test Item Value Reference Range Interpretation Comments Urine Leukocyte Esterase (test code = 12868-9) NEGATIVE NEGATIV E [facility] Hqouddy4682-82-77 09:49:00* Test Item Value Reference Range Interpretation Comments Urine Nitrite (test code = 74475-6) NEGATIVE NEGATIVE [facility] Wgamsru3472-60-49 09:49:00* Test Item Value Reference Range Interpretation Comments Urine Protein (test code = 66283-1) 1+ NEGATIVE H [facility] Glucose (UA)2018-12-19 09:49:00* Test Item Value Reference Range Interpretation Comments Urine Glucose (UA) (test code = 70960-1) NEGATIVE NEGATIVE [facility] Gnqzjlg5105-60-56 09:49:00* Test Item Value Reference Range Interpretation Comments Urine Ketones (test code = 98476-8) 1+ NEGATIVE H [facility] Tknzkqwfcbhk6675-67-02 09:49:00* Test Item Value Reference Range Interpretation Comments Urine Urobilinogen (test code = 86095-2) 0.2 0.2-1 [facility] Mlvpeoikj9468-64-49 09:49:00* Test Item Value Reference Range Interpretation Comments Urine Bilirubin (test code = 1977-8) NEGATIVE NEGATIVE [facility] Rxahr2073-38-95 09:49:00* Test Item Value Reference Range Interpretation Comments Urine Blood (test code = 46558-2) NEGATIVE NEGATIVE [facility] Ptwfz0383-85-33 09:49:00* Test Item Value Reference Range Interpretation Comments Urine Color (test code = 5778-6) ORANGE YELLOW H [facility] Pavxgfk0018-19-18 09:49:00* Test Item Value Reference Range Interpretation Comments Urine Clarity (test code = 79502-4) SL CLOUDY CLEAR H [facility] Specific Stgxlxb6157-95-22 09:49:00 * Test Item Value Reference Range Interpretation Comments Urine Specific [place] (test code = 5811-5) >=1.030 1.010-1.02 5 [facility] gD9045-74-34 09:49:00* Test Item Value Reference Range Interpretation Comments Urine pH (test code = 84838-7) 6 5-7 [facility] Leukocyte Cpnovadl8409-70-39 09:49:00* Test Item Value Reference Range Interpretation Comments Urine Leukocyte Esterase (test code = 87830-5) NEGATIVE NEGATIV E [facility] Outtwjy3664-68-82 09:49:00* Test Item Value Reference Range Interpretation Comments Urine Nitrite (test code = 14936-9) NEGATIVE NEGATIVE [facility] Zlckysy3953-71-64 09:49:00* Test Item Value Reference Range Interpretation Comments Urine Protein (test code = 86786-5) 1+ NEGATIVE H [facility] Glucose (UA)2018-12-19 09:49:00* Test Item Value Reference Range Interpretation Comments Urine Glucose (UA) (test code = 10477-1) NEGATIVE NEGATIVE [facility] Hscdabt1085-34-99 09:49:00* Test Item Value Reference Range Interpretation Comments Urine Ketones (test code = 48631-5) 1+ NEGATIVE H [facility] Nzulqzhdauno8970-89-31 09:49:00* Test Item Value Reference Range Interpretation Comments Urine Urobilinogen (test code = 61683-1) 0.2 0.2-1 [facility] Rmixdrnzs2000-84-63 09:49:00* Test Item Value Reference Range Interpretation Comments Urine Bilirubin (test code = 1977-8) NEGATIVE NEGATIVE [facility] Olirr4161-97-92 09:49:00* Test Item Value Reference Range Interpretation Comments Urine Blood (test code = 98294-6) NEGATIVE NEGATIVE [facility] Dhoyz2704-03-46 09:49:00* Test Item Value Reference Range Interpretation Comments Urine Color (test code = 5778-6) ORANGE YELLOW H [facility] Oaupvtz4687-73-86 09:49:00* Test Item Value Reference Range Interpretation Comments Urine Clarity (test code = 96056-3) SL CLOUDY CLEAR H [facility] Specific Peiblyz9318-42-20 09:49:00 * Test Item Value Reference Range Interpretation Comments Urine Specific [place] (test code = 5811-5) >=1.030 1.010-1.02 5 [facility] tR2830-98-88 09:49:00* Test Item Value Reference Range Interpretation Comments Urine pH (test code = 65213-7) 6 5-7 [facility] Leukocyte Rloyhsyw2104-32-61 09:49:00* Test Item Value Reference Range Interpretation Comments Urine Leukocyte Esterase (test code = 36579-1) NEGATIVE NEGATIV E [facility] Joyddvk7797-47-01 09:49:00* Test Item Value Reference Range Interpretation Comments Urine Nitrite (test code = 25490-1) NEGATIVE NEGATIVE [facility] Puugblp8774-54-52 09:49:00* Test Item Value Reference Range Interpretation Comments Urine Protein (test code = 32972-2) 1+ NEGATIVE H [facility] Glucose (UA)2018-12-19 09:49:00* Test Item Value Reference Range Interpretation Comments Urine Glucose (UA) (test code = 75616-6) NEGATIVE NEGATIVE [facility] Ajogvyw7104-39-17 09:49:00* Test Item Value Reference Range Interpretation Comments Urine Ketones (test code = 71743-5) 1+ NEGATIVE H [facility] Nyiodqcfbfxw2971-00-79 09:49:00* Test Item Value Reference Range Interpretation Comments Urine Urobilinogen (test code = 25568-0) 0.2 0.2-1 [facility] Tjojlyzpl5736-75-96 09:49:00* Test Item Value Reference Range Interpretation Comments Urine Bilirubin (test code = 1977-8) NEGATIVE NEGATIVE [facility] Wuevw6129-55-47 09:49:00* Test Item Value Reference Range Interpretation Comments Urine Blood (test code = 38284-2) NEGATIVE NEGATIVE [facility] Bfrvu8751-23-65 09:49:00* Test Item Value Reference Range Interpretation Comments Urine Color (test code = 5778-6) ORANGE YELLOW H [facility] Behwyoh7020-65-79 09:49:00* Test Item Value Reference Range Interpretation Comments Urine Clarity (test code = 20439-8) SL CLOUDY CLEAR [facility] Specific Ikmnaow8485-67-73 09:49:00 * Test Item Value Reference Range Interpretation Comments Urine Specific [place] (test code = 5811-5) >=1.030 1.010-1.02 5 [facility] oA2241-70-73 09:49:00* Test Item Value Reference Range Interpretation Comments Urine pH (test code = 06627-0) 6 5-7 [facility] Leukocyte Yfjqjpdn4403-58-37 09:49:00* Test Item Value Reference Range Interpretation Comments Urine Leukocyte Esterase (test code = 80857-5) NEGATIVE NEGATIV E [facility] Fskibnb9872-18-05 09:49:00* Test Item Value Reference Range Interpretation Comments Urine Nitrite (test code = 55169-2) NEGATIVE NEGATIVE [facility] Fokilyd5878-28-17 09:49:00* Test Item Value Reference Range Interpretation Comments Urine Protein (test code = 95653-0) 1+ NEGATIVE H [facility] Glucose (UA)2018-12-19 09:49:00* Test Item Value Reference Range Interpretation Comments Urine Glucose (UA) (test code = 57576-3) NEGATIVE NEGATIVE [facility] Ynykrzq5471-12-75 09:49:00* Test Item Value Reference Range Interpretation Comments Urine Ketones (test code = 64989-5) 1+ NEGATIVE H [facility] Olfbqovhciyy0382-32-75 09:49:00* Test Item Value Reference Range Interpretation Comments Urine Urobilinogen (test code = 86933-6) 0.2 0.2-1 [facility] Tppvhjeol2361-06-29 09:49:00* Test Item Value Reference Range Interpretation Comments Urine Bilirubin (test code = 1977-8) NEGATIVE NEGATIVE [facility] Qqrhs7068-99-31 09:49:00* Test Item Value Reference Range Interpretation Comments Urine Blood (test code = 32036-9) NEGATIVE NEGATIVE [facility] Helps8765-25-96 09:49:00* Test Item Value Reference Range Interpretation Comments Urine Color (test code = 5778-6) ORANGE YELLOW H [facility] Tfinzlr4712-45-67 09:49:00* Test Item Value Reference Range Interpretation Comments Urine Clarity (test code = 31157-3) SL CLOUDY CLEAR H [facility] Specific Bcwvdon9263-11-75 09:49:00 * Test Item Value Reference Range Interpretation Comments Urine Specific [place] (test code = 5811-5) >=1.030 1.010-1.02 5 [facility] pL2343-20-01 09:49:00* Test Item Value Reference Range Interpretation Comments Urine pH (test code = 01943-2) 6 5-7 [facility] Leukocyte Oxwwbjht1908-41-69 09:49:00* Test Item Value Reference Range Interpretation Comments Urine Leukocyte Esterase (test code = 64103-0) NEGATIVE NEGATIV E [facility] Nwwmkkc4682-15-54 09:49:00* Test Item Value Reference Range Interpretation Comments Urine Nitrite (test code = 20180-2) NEGATIVE NEGATIVE [facility] Wlzspck8157-43-97 09:49:00* Test Item Value Reference Range Interpretation Comments Urine Protein (test code = 70209-2) 1+ NEGATIVE H [facility] Glucose (UA)2018-12-19 09:49:00* Test Item Value Reference Range Interpretation Comments Urine Glucose (UA) (test code = 76609-1) NEGATIVE NEGATIVE [facility] Uenggwd2628-57-61 09:49:00* Test Item Value Reference Range Interpretation Comments Urine Ketones (test code = 73504-9) 1+ NEGATIVE H [facility] Cgvfookuczaq8922-09-60 09:49:00* Test Item Value Reference Range Interpretation Comments Urine Urobilinogen (test code = 05190-5) 0.2 0.2-1 [facility] Dfzpdoewg5193-64-58 09:49:00* Test Item Value Reference Range Interpretation Comments Urine Bilirubin (test code = 1977-8) NEGATIVE NEGATIVE [facility] Wsprj9389-19-54 09:49:00* Test Item Value Reference Range Interpretation Comments Urine Blood (test code = 19873-3) NEGATIVE NEGATIVE [facility] Buhfk9183-63-11 09:49:00* Test Item Value Reference Range Interpretation Comments Urine Color (test code = 5778-6) ORANGE YELLOW H [facility] Zsetoae3742-26-26 09:49:00* Test Item Value Reference Range Interpretation Comments Urine Clarity (test code = 68011-8) SL CLOUDY CLEAR H [facility] Specific Hybbbiw5771-01-19 09:49:00 * Test Item Value Reference Range Interpretation Comments Urine Specific [place] (test code = 5811-5) >=1.030 1.010-1.02 5 [facility] pP7059-11-91 09:49:00* Test Item Value Reference Range Interpretation Comments Urine pH (test code = 58782-4) 6 5-7 [facility] Leukocyte Tnflqwoq6263-62-58 09:49:00* Test Item Value Reference Range Interpretation Comments Urine Leukocyte Esterase (test code = 39538-3) NEGATIVE NEGATIV E [facility] Pmvsham2565-76-87 09:49:00* Test Item Value Reference Range Interpretation Comments Urine Nitrite (test code = 99771-4) NEGATIVE NEGATIVE [facility] Bnftxmw4214-30-35 09:49:00* Test Item Value Reference Range Interpretation Comments Urine Protein (test code = 34751-9) 1+ NEGATIVE H [facility] Glucose (UA)2018-12-19 09:49:00* Test Item Value Reference Range Interpretation Comments Urine Glucose (UA) (test code = 21106-0) NEGATIVE NEGATIVE [facility] Ygqfikw7502-90-53 09:49:00* Test Item Value Reference Range Interpretation Comments Urine Ketones (test code = 43452-5) 1+ NEGATIVE H [facility] Ddoaulpxgzcj6885-49-04 09:49:00* Test Item Value Reference Range Interpretation Comments Urine Urobilinogen (test code = 85898-8) 0.2 0.2-1 [facility] Zeanmzoxi0904-14-83 09:49:00* Test Item Value Reference Range Interpretation Comments Urine Bilirubin (test code = 1977-8) NEGATIVE NEGATIVE [facility] Ineqw3462-58-73 09:49:00* Test Item Value Reference Range Interpretation Comments Urine Blood (test code = 07596-2) [facility]GATIVE [facility] 09:47:00* Test Item Value Reference Range Interpretation Comments Ammonia (test code = 16583-6) 112 -123 [facility]2019-09-04 09:47:00* Test Item Value Reference Range Interpretation Comments Ammonia (test code = 40986-4) 112 -123 [facility]2019-09-04 09:47:00* Test Item Value Reference Range Interpretation Comments Ammonia (test code = 92659-1) 112 123 [facility]2019-09-04 09:47:00* Test Item Value Reference Range Interpretation Comments Ammonia (test code = 92187-2) 112 123 [facility]2019-09-04 09:47:00* Test Item Value Reference Range Interpretation Comments Ammonia (test code = 43791-0) 112 123 [facility]2018-12-19 09:09:00 [facility] [address] [place] [address] Patient Name: CARLITO ROCK MR #: [id number] : 1940 Age/Sex: 78/M Req #: [id number] Adm Physician: Ordered by: THAI BOWSER, SALLIE BOWSER Report #: [id number] Location: ER Room/Bed: Procedure: 4 DX/CHEST SINGLE (PORTABLE) Exam Date: 12/19/18 Exa m Time: 0852 REPORT STATUS: Signed EXAM: CHEST SINGLE (PORTABLE) [...] HODGE MD 9 COPY TO: SALLIE ANDRE Prothrombin Baou9437-26-69 09:08:00* Test Item Value Reference Range Interpretation Comments Prothrombin Time (test code = 5902-2) 15.0 11.9-14.5 H [facility] Time International Ratio 2018-12-19 09:08:00* Test Item Value Reference Range Interpretation Comments Prothromb Time International Ratio (test code = 6301-6) 1.13 Oral Anticoagulant Therapy INR Values:1. Low Intensity Therapy 1.5 - 2.02 . Moderate Intensity Therapy 2.0 - 3.03. High Intensity Therapy(1) 2.5 - 3. 54. High Intensity Therapy(2) 3.0 - 4.05. Panic Value INR > 5.0 [facility] Thromboplast Time 2018-12-19 09:08:00* Test Item Value Reference Range Interpretation Comments Activated Partial Thromboplast Time (test code = 94198-4) 37.2 23.8-35.5 H [facility] HospitalProthrombin Xzsg0523-38-41 09:08:00* Test Item Value Reference Range Interpretation Comments Prothrombin Time (test code = 5902-2) 15.0 11.9-14.5 H [facility] HospitalProthromb Time International Ratio 2018-12-19 09:08:00* Test Item Value Reference Range Interpretation Comments Prothromb Time International Ratio (test code = 6301-6) 1.13 Oral Anticoagulant Therapy INR Values:1. Low Intensity Therapy 1.5 - 2.02 . Moderate Intensity Therapy 2.0 - 3.03. High Intensity Therapy(1) 2.5 - 3. 54. High Intensity Therapy(2) 3.0 - 4.05. Panic Value INR > 5.0 [facility] HospitalActivated Partial Thromboplast Time 2018-12-19 09:08:00* Test Item Value Reference Range Interpretation Comments Activated Partial Thromboplast Time (test code = 81679-2) 37.2 23.8-35.5 H [facility] HospitalBedside Qzqbofo4059-78-94 08:14:00* Test Item Value Reference Range Interpretation Comments Bedside Glucose (test code = 66981-7) 136 70-120 H Meter ID: [id number] [facility]Different[facility] Total Cells Sbboeiv7011-27-37 07:52:00* Test Item Value Reference Range Interpretation Comments Differential Total Cells Counted (test code = Differbipin tial Total Cells Counted) 100 [facility] HospitalNeutrophils % (Manual)2018-12-08 07:52:00 * Test Item Value Reference Range Interpretation Comments Neutrophils % (Manual) (test code = 81220-3) 46 40-74 [facility] HospitalLymphocytes % (Manual)2018-12-08 07:52:00 * Test Item Value Reference Range Interpretation Comments Lymphocytes % (Manual) (test code = 737-7) 34 19-48 [facility] HospitalMonocytes % (Manual)2018-12-08 07:52:00* Test Item Value Reference Range Interpretation Comments Monocytes % (Manual) (test code = 744-3) 10 3.4-9.0 [facility] HospitalEosinophils % (Manual)2018-12-08 07:52:00 * Test Item Value Reference Range Interpretation Comments Eosinophils % (Manual) (test code = 714-6) 10 0-7 H [facility] HospitalPlatelet Rqwcecjn6570-76-34 07:52:00* Test Item Value Reference Range Interpretation Comments Platelet Estimate (test code = 50684-3) ADEQUATE [facility] HospitalPlatelet Morphology Gkqjcym2302-42-08 07:52:00* Test Item Value Reference Range Interpretation Comments Platelet Morphology Comment (test code = 01088-6) NORMAL [facility] HospitalAnisocytosis2019-08-24 07:52:00* Test Item Value Reference Range Interpretation Comments Anisocytosis (test code = 702-1) SLIGHT [facility] HospitalMicrocytosis2019-08-24 07:52:00* Test Item Value Reference Range Interpretation Comments Microcytosis (test code = 741-9) SLIGHT [facility] HospitalMacrocytosis2019-08-24 07:52:00* Test Item Value Reference Range Interpretation Comments Macrocytosis (test code = 738-5) SLIGHT [facility] HospitalRed Cell Morphology Yigcogv5507-37-46 07:52:00* Test Item Value Reference Range Interpretation Comments Red Cell Morphology Comment (test code = 6742-1) NORMAL [facility] HospitalMicrocytosis2019-08-24 07:52:00* Test Item Value Reference Range Interpretation Comments Microcytosis (test code = 741-9) SLIGHT [facility] HospitalMacrocytosis2019-08-24 07:52:00* Test Item Value Reference Range Interpretation Comments Macrocytosis (test code = 738-5) SLIGHT [facility] HospitalMicrocytosis2019-08-24 07:52:00* Test Item Value Reference Range Interpretation Comments Microcytosis (test code = 741-9) SLIGHT [facility] HospitalMacrocytosis2019-08-24 07:52:00* Test Item Value Reference Range Interpretation Comments Macrocytosis (test code = 738-5) SLIGHT [facility] HospitalMicrocytosis2019-08-24 07:52:00* Test Item Value Reference Range Interpretation Comments Microcytosis (test code = 741-9) SLIGHT [facility] HospitalMacrocytosis2019-08-24 07:52:00* Test Item Value Reference Range Interpretation Comments Macrocytosis (test code = 738-5) SLIGHT [facility] HospitalMicrocytosis2019-08-24 07:52:00* Test Item Value Reference Range Interpretation Comments Microcytosis (test code = 741-9) [facility] 07:52:00* Test Item Value Reference Range Interpretation Comments Macrocytosis (test code = 738-5) [facility]2019-08-24 07:52:00* Test Item Value Reference Range Interpretation Comments Microcytosis (test code = 741-9) SLIGHT [facility]2019-08-24 07:52:00* Test Item Value Reference Range Interpretation Comments Macrocytosis (test code = 738-5) [facility]2019-08-24 07:52:00* Test Item Value Reference Range Interpretation Comments Microcytosis (test code = 741-9) SLIGHT [facility] 07:52:00* Test Item Value Reference Range Interpretation Comments Macrocytosis (test code = 738-5) [facility]IGHT [facility] 07:52:00* Test Item Value Reference Range Interpretation Comments Microcytosis (test code = 741-9) SLIGHT [facility]2019-08-24 07:52:00* Test Item Value Reference Range Interpretation Comments Macrocytosis (test code = 738-5) SLIGHT [facility] HospitalAmmonia2019-08-24 05:42:00* Test Item Value Reference Range Interpretation Comments Ammonia (test code = 17464-1) 106 31-123 [facility] HospitalWhite Blood Wzhom6383-22-58 05:37:00* Test Item Value Reference Range Interpretation Comments White Blood Count (test code = 6690-2) 11.02 4.8-10.8 H [facility] HospitalRed Blood Ukvkf8414-15-72 05:37:00* Test Item Value Reference Range Interpretation Comments Red Blood Count (test code = 789-8) 3.59 4.3-5.7 L [facility] HospitalHemoglobin2019-08-24 05:37:00* Test Item Value Reference Range Interpretation Comments Hemoglobin (test code = 16583-3) 7.8 14.0-18.0 L [facility] HospitalHematocrit2019-08-24 05:37:00* Test Item Value Reference Range Interpretation Comments Hematocrit (test code = 4544-3) 27.0 38.2-49.6 L [facility] HospitalMean Corpuscular Ihaqgv0972-49-53 05:37:00* Test Item Value Reference Range Interpretation Comments Mean Corpuscular Volume (test code = 787-2) 75.2 81-99 L [facility] HospitalMean Corpuscular Gjdrvwdsnb9599-32-06 05:37:00* Test Item Value Reference Range Interpretation Comments Mean Corpuscular Hemoglobin (test code = 785-6) 21.7 28-32 L [facility] HospitalMean Corpuscular Hemoglobin Concent 2018-12-08 05:37:00* Test Item Value Reference Range Interpretation Comments Mean Corpuscular Hemoglobin Concent (test code = 786-4) 28.9 31-35 L [facility] HospitalRed Cell Distribution Kzocp1910-59-91 05:37:00* Test Item Value Reference Range Interpretation Comments Red Cell Distribution Width (test code = 69237-5) 19.3 11.7 -14.4 H [facility] HospitalPlatelet Sjxfd7865-85-98 05:37:00* Test Item Value Reference Range Interpretation Comments Platelet Count (test code = 777-3) 183 140-360 [facility] HospitalNeutrophils (%) (Auto)2018-12-08 05:37:00 * Test Item Value Reference Range Interpretation Comments Neutrophils (%) (Auto) (test code = 82488-5) 34.0 38.7-80.0 L [facility] HospitalLymphocytes (%) (Auto)2018-12-08 05:37:00 * Test Item Value Reference Range Interpretation Comments Lymphocytes (%) (Auto) (test code = 736-9) 44.9 18.0-39.1 H [facility] HospitalMonocytes (%) (Auto)2018-12-08 05:37:00* Test Item Value Reference Range Interpretation Comments Monocytes (%) (Auto) (test code = 5905-5) 5.8 4.4-11.3 [facility] HospitalEosinophils (%) (Auto)2018-12-08 05:37:00 * Test Item Value Reference Range Interpretation Comments Eosinophils (%) (Auto) (test code = 713-8) 14.2 0.0-6.0 H [facility] HospitalBasophils (%) (Auto)2018-12-08 05:37:00* Test Item Value Reference Range Interpretation Comments Basophils (%) (Auto) (test code = 706-2) 0.3 0.0-1.0 [facility] HospitalIM GRANULOCYTES %2018-12-08 05:37:00* Test Item Value Reference Range Interpretation Comments IM GRANULOCYTES % (test code = IM GRANULOCYTES %) 0.8 0.0- 1.0 [facility] HospitalNeutrophils # (Auto)2018-12-08 05:37:00* Test Item Value Reference Range Interpretation Comments Neutrophils # (Auto) (test code = 751-8) 3.8 2.1-6.9 [facility] HospitalLymphocytes # (Auto)2018-12-08 05:37:00* Test Item Value Reference Range Interpretation Comments Lymphocytes # (Auto) (test code = 30537-3) 5.0 1.0-3.2 H [facility] HospitalMonocytes # (Auto)2018-12-08 05:37:00* Test Item Value Reference Range Interpretation Comments Monocytes # (Auto) (test code = 742-7) 0.6 0.2-0.8 [facility] HospitalEosinophils # (Auto)2018-12-08 05:37:00* Test Item Value Reference Range Interpretation Comments Eosinophils # (Auto) (test code = 711-2) 1.6 0.0-0.4 H [facility] HospitalBasophils # (Auto)2018-12-08 05:37:00* Test Item Value Reference Range Interpretation Comments Basophils # (Auto) (test code = 704-7) 0.0 0.0-0.1 [facility] HospitalAbsolute Immature Granulocyte (auto 2018-12-08 05:37:00* Test Item Value Reference Range Interpretation Comments Absolute Immature Granulocyte (auto (anurag t code = Absolute Immature Granulocyte (auto) 0.09 0-0.1 [facility] Yafqw8405-71-30 08:13:00* Test Item Value Reference Range Interpretation Comments Sodium Level (test code = 2951-2) 141 136-145 [facility] HospitalPotassium Lifwm2999-97-31 08:13:00* Test Item Value Reference Range Interpretation Comments Potassium Level (test code = 2823-3) 3.6 3.5-5.1 [facility] HospitalChloride Wnrww6521-64-54 08:13:00* Test Item Value Reference Range Interpretation Comments Chloride Level (test code = 2075-0) 108 98-107 H [facility] HospitalCarbon Dioxide Inufx4550-26-51 08:13:00* Test Item Value Reference Range Interpretation Comments Carbon Dioxide Level (test code = 2028-9) 25 22-29 [facility] HospitalAnion Uwb1733-01-34 08:13:00* Test Item Value Reference Range Interpretation Comments Anion Gap (test code = 27099-4) 11.6 8-16 [facility] HospitalBlood Urea Qaucammj8274-26-36 08:13:00* Test Item Value Reference Range Interpretation Comments Blood Urea Nitrogen (test code = 3094-0) 5 7-26 L [facility] HospitalCreatinine2019-08-23 08:13:00* Test Item Value Reference Range Interpretation Comments Creatinine (test code = 2160-0) 0.78 0.72-1.25 [facility] HospitalBUN/Creatinine Ewhoc1142-22-15 08:13:00* Test Item Value Reference Range Interpretation Comments BUN/Creatinine Ratio (test code = 3097-3) 6 6-25 [facility] HospitalEstimat Glomerular Filtration Rate 2018-12-07 08:13:00* Test Item Value Reference Range Interpretation Comments Estimat Glomerular Filtration Rate (test code = 266184445) > 60 >60 Ranges were taken from the National Kidney Disease Education Program and the [facility] Kidney Foundation literature.Reference ranges:60 or greater: Cneqan69-16 ( for 3 consecutive months): Chronic kidney disease 15 or less: Kidney failureEastland Memorial HospitalGlucose Hzmxz5055-27-41 08:13:00* Test Item Value Reference Range Interpretation Comments Glucose Level (test code = MRV6878) 100 74-118 [facility] HospitalCalcium Fwybg9170-49-39 08:13:00* Test Item Value Reference Range Interpretation Comments Calcium Level (test code = 20882-7) 8.5 8.4-10.2 [facility] HospitalTotal Axhxogqab1622-08-96 08:13:00* Test Item Value Reference Range Interpretation Comments Total Bilirubin (test code = 1975-2) 0.6 0.2-1.2 [facility] HospitalAspartate Amino Transf (AST/SGOT) 2018-12-07 08:13:00* Test Item Value Reference Range Interpretation Comments Aspartate Amino Transf (AST/SGOT) (test code = Aspartate Amino Transf (AST/SGOT)) 27 5-34 [facility] HospitalAlanine Aminotransferase (ALT/SGPT) 2018-12-07 08:13:00* Test Item Value Reference Range Interpretation Comments Alanine Aminotransferase (ALT/SGPT) (test code = 1742-6) 17 0-55 [facility] HospitalTotal Nwefuje5247-45-81 08:13:00* Test Item Value Reference Range Interpretation Comments Total Protein (test code = 2885-2) 5.3 6.5-8.1 L [facility] HospitalAlbumin2019-08-23 08:13:00* Test Item Value Reference Range Interpretation Comments Albumin (test code = 1751-7) 2.9 3.5-5.0 L [facility] HospitalGlobulin2019-08-23 08:13:00* Test Item Value Reference Range Interpretation Comments Globulin (test code = 80805-6) 2.4 2.3-3.5 [facility] HospitalAlbumin/Globulin Yxmst0915-98-18 08:13:00 * Test Item Value Reference Range Interpretation Comments Albumin/Globulin Ratio (test code = 1759-0) 1.2 0.8-2.0 [facility] HospitalAlkaline Urewhuumrcy8344-37-06 08:13:00* Test Item Value Reference Range Interpretation Comments Alkaline Phosphatase (test code = 6768-6) 80 40-150 [facility] HospitalUrine NXW5389-12-96 14:36:00* Test Item Value Reference Range Interpretation Comments Urine WBC (test code = 5821-4) NONE 0-5 [facility] HospitalUrine MJJ3299-83-46 14:36:00* Test Item Value Reference Range Interpretation Comments Urine RBC (test code = 41671-1) NONE 0-5 [facility] HospitalUrine Bsumodzx9366-53-25 14:36:00* Test Item Value Reference Range Interpretation Comments Urine Bacteria (test code = 16687-4) MODERATE NONE H [facility] HospitalUrine Epithelial Ehkqt8572-45-49 14:36:00 * Test Item Value Reference Range Interpretation Comments Urine Epithelial Cells (test code = 96647-8) FEW NONE [facility] HospitalUrine Aikpo3547-08-21 14:36:00* Test Item Value Reference Range Interpretation Comments Urine Mucus (test code = 8247-9) MODERATE RARE H [facility] HospitalUrine Wdtia6616-09-22 14:25:00* Test Item Value Reference Range Interpretation Comments Urine Color (test code = 5778-6) YELLOW YELLOW [facility] HospitalUrine Wdwpxez4117-67-29 14:25:00* Test Item Value Reference Range Interpretation Comments Urine Clarity (test code = 60202-3) SL CLOUDY CLEAR H [facility] HospitalUrine Specific Mhxmzym4732-33-02 14:25:00 * Test Item Value Reference Range Interpretation Comments Urine Specific [place] (test code = 5811-5) 1.025 1.010-1.02 5 [facility] HospitalUrine tS7303-47-94 14:25:00* Test Item Value Reference Range Interpretation Comments Urine pH (test code = 65159-5) 6 5-7 [facility] HospitalUrine Leukocyte Jeczawyt1105-45-86 14:25:00* Test Item Value Reference Range Interpretation Comments Urine Leukocyte Esterase (test code = 37901-6) NEGATIVE NEGATIV E [facility] HospitalUrine Hwjcrdn0660-86-88 14:25:00* Test Item Value Reference Range Interpretation Comments Urine Nitrite (test code = 52991-6) NEGATIVE NEGATIVE [facility] HospitalUrine Haeihas6134-56-82 14:25:00* Test Item Value Reference Range Interpretation Comments Urine Protein (test code = 57491-7) NEGATIVE NEGATIVE [facility] HospitalUrine Glucose (UA)2018-12-06 14:25:00* Test Item Value Reference Range Interpretation Comments Urine Glucose (UA) (test code = 14413-1) 3+ NEGATIVE [facility] HospitalUrine Fqwfusq0820-61-96 14:25:00* Test Item Value Reference Range Interpretation Comments Urine Ketones (test code = 63578-0) NEGATIVE NEGATIVE [facility] HospitalUrine Lojtmthxhfws2442-96-91 14:25:00* Test Item Value Reference Range Interpretation Comments Urine Urobilinogen (test code = 82225-6) 0.2 0.2-1 [facility] HospitalUrine Fkylqjuzs8482-35-40 14:25:00* Test Item Value Reference Range Interpretation Comments Urine Bilirubin (test code = 1977-8) NEGATIVE NEGATIVE [facility] HospitalUrine Kmkph8042-63-08 14:25:00* Test Item Value Reference Range Interpretation Comments Urine Blood (test code = 57179-0) NEGATIVE NEGATIVE [facility] Occult Mskgf0788-93-66 10:48:00* Test Item Value Reference Range Interpretation Comments Stool Occult Blood (test code = 2335-8) NEGATIVE NEGATIVE [facility] Occult Jbyub8402-46-20 10:48:00* Test Item Value Reference Range Interpretation Comments Stool Occult Blood (test code = 2335-8) NEGATIVE NEGATIVE [facility] Occult Unlgw9863-23-06 10:48:00* Test Item Value Reference Range Interpretation Comments Stool Occult Blood (test code = 2335-8) NEGATIVE NEGATIVE [facility] Occult Lldci0367-05-22 10:48:00* Test Item Value Reference Range Interpretation Comments Stool Occult Blood (test code = 2335-8) NEGATIVE NEGATIVE [facility] Occult Mtkma5859-76-42 10:48:00* Test Item Value Reference Range Interpretation Comments Stool Occult Blood (test code = 2335-8) NEGATIVE NEGATIVE [facility] Occult Fclfe5070-05-06 10:48:00* Test Item Value Reference Range Interpretation Comments Stool Occult Blood (test code = 2335-8) NEGATIVE NEGATIVE [facility] Occult Sohow3786-94-46 10:48:00* Test Item Value Reference Range Interpretation Comments Stool Occult Blood (test code = 2335-8) NEGATIVE NEGATIVE [facility] Occult Ahjum9569-01-00 10:48:00* Test Item Value Reference Range Interpretation Comments Stool Occult Blood (test code = 2335-8) NEGATIVE NEGATIVE [facility] HospitalCT [facility]PELVIS O4384-00-11 01:19:00 [facility] [address] [place] [address] Patient Name: CARLITO ROCK MR #: [id number] : [id number] Age/Sex: 78/M Req #: [id number] [facility] Physician: LEOLA PONCE MD Ordered by: JUAN RUIZ MD Report #: [id number] Location: [facility] Room/Bed: [place] [address] Procedure: [id number] CT/ CT ABDOMEN/PELVIS W Exam Date: Exam [...] DO on 12/06/2018 1:29 AM Dictated By: CORBIN GOFF DO 8 Transcribed By: FISH on 12/06/18128 COPY TO: JUAN RUIZ MD Unsvrmcvhnepx8290-95-68 20:32:00* Test Item Value Reference Range Interpretation Comments Hypochromasia (test code = 728-6) MODERATE [facility]2019-08-21 20:32:00* Test Item Value Reference Range Interpretation Comments Dohle Bodies (test code = 7792-5) FEW [facility]2019-08-21 20:32:00* Test Item Value Reference Range Interpretation Comments Dohle Bodies (test code = 7792-5) FEW [facility]2019-08-21 20:32:00* Test Item Value Reference Range Interpretation Comments Dohle Bodies (test code = 7792-5) FEW [facility]2019-08-21 20:32:00* Test Item Value Reference Range Interpretation Comments Dohle Bodies (test code = 7792-5) FEW [facility]2019-08-21 20:32:00* Test Item Value Reference Range Interpretation Comments Dohle Bodies (test code = 7792-5) FEW [facility]2019-08-21 20:32:00* Test Item Value Reference Range Interpretation Comments Dohle Bodies (test code = 7792-5) FEW [facility]2019-08-21 20:32:00* Test Item Value Reference Range Interpretation Comments Dohle Bodies (test code = 7792-5) FEW [facility]2019-08-21 20:32:00* Test Item Value Reference Range Interpretation Comments Dohle Bodies (test code = 7792-5) FEW [facility] HospitalIron Lqwhg8465-77-73 18:07:00* Test Item Value Reference Range Interpretation Comments Iron Level (test code = 2498-4) 28 65-[address] [facility] Iron Binding Vzskrmad1021-89-57 18:07:00* Test Item Value Reference Range Interpretation Comments Total Iron Binding Capacity (test code = 2500-7) 587 261-4 78 H [facility] HospitalPercent Iron Zldlznoqcj1374-71-75 18:07:00* Test Item Value Reference Range Interpretation Comments Percent Iron Saturation (test code = 2502-3) 5 15-50 L [facility] HospitalTransferrin2019-08-21 18:07:00* Test Item Value Reference Range Interpretation Comments Transferrin (test code = 3034-6) 419 174-364 H [facility]2019-08-21 18:07:00* Test Item Value Reference Range Interpretation Comments Iron Level (test code = 2498-4) 28 65-[address] [facility] Iron Binding Pteoagcx4859-35-75 18:07:00* Test Item Value Reference Range Interpretation Comments Total Iron Binding Capacity (test code = 2500-7) 587 261-4 78 H [facility] Iron Edzeixjxsz4282-93-69 18:07:00* Test Item Value Reference Range Interpretation Comments Percent Iron Saturation (test code = 2502-3) 5 15-50 L [facility] HospitalTransferrin2019-08-21 18:07:00* Test Item Value Reference Range Interpretation Comments Transferrin (test code = 3034-6) 419 174-364 H [facility]2019-08-21 18:07:00* Test Item Value Reference Range Interpretation Comments Iron Level (test code = 2498-4) 28 65-[address] [facility] Iron Binding Zpkvaohm6687-71-73 18:07:00* Test Item Value Reference Range Interpretation Comments Total Iron Binding Capacity (test code = 2500-7) 587 261-4 78 H [facility] HospitalPercent Iron Stamjrkrwh9878-28-68 18:07:00* Test Item Value Reference Range Interpretation Comments Percent Iron Saturation (test code = 2502-3) 5 15-50 L [facility]2019-08-21 18:07:00* Test Item Value Reference Range Interpretation Comments Transferrin (test code = 3034-6) 419 174-364 H [facility]2019-08-21 18:07:00* Test Item Value Reference Range Interpretation Comments Iron Level (test code = 2498-4) 28 65-175 L [facility] Iron Binding Laibbheg1410-93-97 18:07:00* Test Item Value Reference Range Interpretation Comments Total Iron Binding Capacity (test code = 2500-7) 587 261-4 78 H [facility] Iron Ynygsomxbm2011-93-57 18:07:00* Test Item Value Reference Range Interpretation Comments Percent Iron Saturation (test code = 2502-3) 5 15-50 L [facility]2019-08-21 18:07:00* Test Item Value Reference Range Interpretation Comments Transferrin (test code = 3034-6) 419 174-364 H [facility]2019-08-21 18:07:00* Test Item Value Reference Range Interpretation Comments Iron Level (test code = 2498-4) 28 65-[address] [facility] Iron Binding Hxuwphiz9480-12-92 18:07:00* Test Item Value Reference Range Interpretation Comments Total Iron Binding Capacity (test code = 2500-7) 587 261-4 78 H [facility] Iron Fjkwzzfuah4647-65-79 18:07:00* Test Item Value Reference Range Interpretation Comments Percent Iron Saturation (test code = 2502-3) 5 15-50 L [facility] HospitalTransferrin2019-08-21 18:07:00* Test Item Value Reference Range Interpretation Comments Transferrin (test code = 3034-6) 419 174-364 H [facility]2019-08-21 18:07:00* Test Item Value Reference Range Interpretation Comments Iron Level (test code = 2498-4) 28 65-[address] [facility] Iron Binding Raaynvdc0388-15-90 18:07:00* Test Item Value Reference Range Interpretation Comments Total Iron Binding Capacity (test code = 2500-7) 587 261-4 78 H [facility] HospitalPercent Iron Jkluejofaf7062-30-63 18:07:00* Test Item Value Reference Range Interpretation Comments Percent Iron Saturation (test code = 2502-3) 5 15-50 L [facility] HospitalTransferrin2019-08-21 18:07:00* Test Item Value Reference Range Interpretation Comments Transferrin (test code = 3034-6) 419 174-364 H [facility] HospitalBASIC METABOLIC PAPNS3042-95-62 12:59:00 * Test Item Value Reference Range [...] CA) 8.8 mg/dL 8.5-10.1 N HEPATIC FUNCTION OXEFO6143-31-29 12:59:00* Test Item Value Reference Range Interpretation [...] reference range due to change in reagent. IDTSRIGO-P7041-92-20 12:59:00* Test Item Value Reference Range Interpretation Comments TROPONIN-I (test code = TROPI) <0.015 ng/mL 0-0.045 N TRCWPSU2381-44-36 12:55:00* Test Item Value Reference Range Interpretation Comments AMMONIA (test code = AMM) 21 umol/L 11-32 N BASIC METABOLIC DDINM7409-91-55 12:48:00* Test Item Value Reference Range Interpretation [...] code = CA) mg/dL 8.5-10.1 HEPATIC FUNCTION YENTT0765-36-01 12:48:00* Test Item Value Reference Range Interpretation [...] TOTAL (test code = ALKP) IUnit/L 45-117 DLSLDLRK-H6026-00-20 12:48:00* Test Item Value Reference Range Interpretation Comments TROPONIN-I (test code = TROPI) ng/mL 0-0.045 CBC W/O [id number] 12:46:00* Test Item Value Reference Range Interpretation [...] fL 6.7-11.0 N - XR CHEST 1 [id number] 11:02:00 FAX: Giuliana Ames [phone] [place]: B St: [facility] FAX: Mulugeta Hadley DO Name: CARLITO ROCK JR [facility] : 1940 Age/S: 78/M Marissa Carter [facility]ly [facility] Unit #: [id number] Loc: [place] [address] Phys: Mulugeta Hadley DO Acct: [id number] Dis Date: Status: REG ER PHONE #: [phone] Exam Date: 12/04/2018 1051 FAX #: [phone] Reason: Altered Mental Status EXAMS: CPT CODE: [id number] XR CHEST 1 V 40261 HISTORY: Confusion. COMPARISON: X-ray from March 15, 2005. No acute infiltrates, effusion or congestion is noted. Hyperinflation. The cardiac and mediastinal silhouette are within normal limits. IMPRESSION: No acute infiltrates, effusion or congestion. at 1102 Reported and signed by: Alphonso Gonzalez M.D. CC: Giuliana Miguel MD; Mulugeta Hadley DO Technologist: HENRY CASTILLO JR Trnscrd Date/Time/By: 12/04/2018 (3699) : By: [email or web address] Orig Print D/T: S: 12/04/2018 (8341) PAGE 1 Signed Report URINALYSIS [id number] 11:01:00* Test Item Value Reference Range Interpretation [...] #/LPF FEW Urine Source? Clean CatchCTA ABD/PEL/RUN [id number] 07:45:00 [place] [address] Patient Name: CARLITO ROCK MR #: [id number] : 1940 Age/Sex: 77/M Req #: [id number] Adm Physician: Ordered by: LEOLA PONCE MD Report #: [id number] Location: CT Room/Bed: Procedure: [id number] CT/CTA ABD/PEL/RUN OFF Exam Date: 10/30/17 Exam [...] celiac, S MA, and JASMIN. 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 Patent nevin ateral [...] LEOLA PONCE MD MRI SHOULDER LEFT WO [place] [address] Patient Name: CARLITO ROCK MR #: [id number] : 1940 Age/Sex: 76/M Req #: [id number] Adm Physician : Ordered by: REDDY HERRERA MD Report #: [id number] Location: M RI Room/Bed: Procedure: [id number] MRI/MRI SHOULDER L EFT WO Exam Date: 03/03/17 Exam Time: 1430 REP ORT STATUS: Signed TECHNIQUE: Magnetic resonance imaging of the LEFT SHOULD ER was performed WITHOUT injected contrast. COMPARISON: None available. HISTORY: Pain FINDINGS: MUSCLES AND TENDONS: Rotator Cuff: Tendons: Large focus of globular bursal surface calcific tendinopat hy involving the supraspinatus and infraspinatus extending 3 [...] 3:31 PM Dictated By: NOHELIA FULLER MD 1531 Transcribed By: FISH on 03/03/17 1531 COPY TO: REDDY HERRERA MD SHOULDER LEFT COMPLETE [place] [address] Patient Name: CARLITO ROCK MR #: [id number] : 1940 Age/Sex: 76/M Req #: [id number] Adm Physician: Ordered by: REDDY HERRERA MD Report #: [id number] Location: [facility] Room/Bed: Procedure: [id number] DX/SHOULDER LEFT C OMPLETE Exam Date: 01/20/17 Exam Time: 1210 RE PORT STATUS: Signed PROCEDURE: SHOULDER LEFT COMPLETE TECHNIQUE: Liquor Blender al and external rotation AP views left [...]
--- OUTSIDE RECORDS SUMMARY | 2020-02-01 13:02 | XMS REPORT | Continuity of Care Document ---
Author Author Estefany Piseco [employer] CARLITO Hernandez Organization [employer] 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 09/07/2018 [facility] Diabetes Mellitus Active 06/12/2013 [facility] Hypertension Active 06/12/2013 [facility] Hyperlipidemia Active 06/12/2013 [facility] Medications Medication Details Route Status Patient Instructions Ordering Provider Order Date Source Simvastatin 80 MG Oral Tablet (Active) Active [facility] GlipiZIDE XL 10 MG Oral Tablet Extended Release 24 Roderick r (Active) Active [facility] Losartan Potassium 50 MG Oral Tablet [...] drug a llergy drug aller gy Active [facility] Immunizations Immunization Date Given Site Status Last Updated Comments Source Influenza completed [facility] Td completed [facility] Results No Data Provided for This [...] johnnie relating to chronic denervation/neuropathic change. SL: [id number] 09/21/2018 [facility] Consultation Notes No Data Provided for This Section Discharge Summaries No Data Provided for This Section History and Physicals No Data Provided for This Section Vital Signs No Data Provided for This Section Encounters Location Location Details Encounter Type Encounter Number Reason For Visit Attending Provider ADM Date DC Date Status Source AUDIT [id number] 06/12/2013 06/12/[address] [facility] Outpatient [id number] Etienne Emerson 09/21/2018 09/22/2018 [facility] Procedures No Data Provided for This Section Assessment and Plan No Data Provided for This Section Plan of Care No Data Provided for This Section Social History Social History Date Source No data available for this section 09/22/2018 [facility] Marital History - Currently (Active) Alcohol Use (Active) No History of Drug Use (Denied) Never A Smoker (Active) Occupation: Retired (Active) 06/12/2013 [facility] Family History Value Date S ource Family history of Alzheimer Disease (Active) Paternal history of Diabetes Mellitus (V18.0); (Active) Maternal history of Hypertension (V17.49); (Active) Maternal history of Colon Cancer (V16.0); (Active) Family history of Asthma (V17.5); (Active) Family history of Depression (Active) 06/12/2013 [facility] Advance Directives Order Name Results Value Date Source Advance Directives Advance Dir ectives No Advance Directives available. 06/12/2013 [facility] Functional Status No Data Provided for This Section
--- OUTSIDE RECORDS SUMMARY | 2020-02-01 13:04 | XMS REPORT | Continuity of Care Document ---
Author Author [facility] t Organization [facility] Address [address] [place] [address] Phone Unavailable Care Team Providers Care Chief Steward/Stewardess Name Role Phone MD Shelly PONCE MD PCP Shelly PONCE Attphys Unavailable Fahad Emerson Attphys Cristiana HERRERA Attphys Unavailable Shelly PONCE Admphys Unavailable Payers Payer Name Policy Type Policy Number Effective Date Expiration Date dez [facility] [id number] 2016 00:00:00 [facility] Problems Condition Name Condition Details Condition Category Status Onset Date Resolution Date Last Treatment Date Treating Clinician Comments Source DX: ULCER LT 1ST DX: ULCER LT 1ST Active 09/07/2018 [facility] Active 2018-09-07 00:00:00 2018-09-21 18:42:00 [facility] Elevated liver function tests Elevated LFTs Problem Active 201 08-26-17 00:00:00 [facility] Fever Fever Problem Active 2015-04-03 00:00:00 [facility] Hyponatremia Hyponatremia Problem Active 2015-04-03 00:00:00 [facility] Increased serum lipase level Problem Active 2015-04-03 00:00:00 [facility] Abdominal pain Abdominal pain Problem Active [facility] Hepatic cirrhosis Cirrhosis Problem Active [facility] Nausea Nausea Problem Active [facility] Cerebrovascular accident (CVA) CVA (cerebral vascular accident) Pro blem Active [facility] Volume depletion Problem Active [facility] Diabetes Mellitus Diab etes Mellitus Active 06/12/2013 [facility] Problem Active 2013-06-12 17:54:05 M linda Saldana Hypertension Hype rtension Active 06/12/2013 [facility] Problem Active 2013-06-12 17:54:05 Meetaddy Saldana Hyperlipidemia Hype rlipidemia Active 06/12/2013 [facility] Problem Active 2013-06-12 17:54:05 M linda Saldana Allergies, Adverse Reactions, Alerts Allergy Name Allergy Type Status Severity Reaction(s) Onset Date Inacti ve Date Treating Clinician Comments Source No Known Allergies DA Active U 2017-04-12 00:00:00 [facility] No Known Drug Allergies No Known Drug Allergies Active [facility] Family History Family Member Diagnosis Comments Start Date Stop Date Source Unknown Family Member Family History 2013-06-12 17:54:05 2 17:54:05 [facility] Social History Social Habit Start Date Stop Date Quantity Comments Source Social History 2013-06-12 17:54:05 2013-06-12 17:54:05 [facility] Sex Assigned At 1940 00:00:00 1940 00:00:00 Male [facility] Medications Ordered Medication Name Filled Medication Name Start Date Stop Da te Current Medication? Ordering Clinician Indication Dosage Frequency Signature (SIG) Comments Components Source Ciprofloxacin Hcl Ciprofloxacin Hcl 2015-04-07 11:25:00 2018-12-05 00 :00:00 No 500 Twice A Day [facility] Metronidazole Metronidazole 2015-04-07 11:25:00 2018-12-05 00:00:00 No 500 Three Times A Day [facility] Ondansetron (Zofran Odt) 4 Mg TAB.RAPDIS Ondansetron ( Zofran Odt) 4 Mg TAB.RAPDIS 2015-04-07 11:25:00 2018-12-05 00:00:00 No 4 Every 6 Hours as needed for Nausea And Vomiting [facility] Simvastatin 80 MG Oral Tablet 2013-06-12 [...] (Plavix) 75 Mg TABLET Yes 75 Daily [facility] Insulin Aspart (Novolog) 100 Units/1 Ml INJ Insulin As part (Novolog) 100 Units/1 Ml INJ Yes 30 Twice Daily With Meals [facility] Metformin Hcl Metformin Hcl Yes 1000 Twice A Day [facility] Multivitamin (Multi-Vitamin Daily) 1 Each TABLET Multi vitamin (Multi-Vitamin Daily) 1 Each TABLET Yes [facility] Rosuvastatin Calcium (Crestor) 10 Mg TAB Rosuvastatin Calcium (Crestor) 10 Mg TAB Yes 20 Daily [facility] Venlafaxine Hcl Venlafaxine Hcl Yes 75 Daily [facility] Aspirin (Aspir 81) 81 Mg TABLET. Aspirin (Aspir 81) 81 Mg TABL ET. 2019-05-30 00:00:00 No 81 Daily [facility] Clopidogrel Bisulfate (Plavix) 75 Mg TABLET Clopidogre l Bisulfate (Plavix) 75 Mg TABLET 2019-05-30 00:00:00 No 75 Daily [facility] Cyanocobalamin (Vitamin B-12) 1,000 Mcg TAB Cyanocobal simeon (Vitamin B-12) 1,000 Mcg TAB 2019-05-27 00:00:00 No 1000 Daily [facility] Insulin Lispro (Humalog) 100 Unit/1 Ml CARTRIDGE Insul in Lispro (Humalog) 100 Unit/1 Ml CARTRIDGE 2019-05-27 00:00:00 No Before Meals And At Bedtime [facility] Ciprofloxacin Hcl (Cipro) 500 Mg TABLET Ciprofloxacin Hcl (C ipro) 500 Mg TABLET 2019-04-18 00:00:00 No 500 Every 12 Hours [facility] Diphenoxylate Hcl/Atropine (Lomotil Tablet) 1 Each TAB LET Diphenoxylate Hcl/Atropine (Lomotil Tablet) 1 Each TABLET 2019-04-18 00:00:00 No 1 Every 6 Hours as needed for Diarrhea [facility] Ozempic Ozempic 2018-12-22 00:00:00 No 1 Q7days fo r Dm [facility] Glipizide (Glucotrol) 10 Mg TABLET Glipizide (Glucotrol) 10 Mg T ABLET 2018-12-05 00:00:00 No 10 Daily [facility] Insulin Lisp Protam/Lisp Human (Humalog Mix 75-25 Vial ) 100 Units/Ml ML Insulin Lisp Protam/Lisp Human (Humalog Mix 75-25 Vial) 100 Units/Ml ML 2018-12-05 00:00:00 No [facility] Losartan Potassium Losartan Potassium 2018-12-05 00:00:00 No 50 Daily [facility] Simvastatin Simvastatin 2018-12-05 00:00:00 No 40 T katie At 9:00PM [facility] Cephalexin Monohydrate (Keflex) 500 Mg CAPSULE Cephale jaime Monohydrate (Keflex) 500 Mg CAPSULE 2015-04-07 00:00:00 No 500 Twice A D ay [facility] Glucotrol Glucotrol 2015-04-02 00:00:00 No [facility] Unk Htn Pill Unk Htn Pill 2015-04-02 00:00:00 No [facility] Vital Signs Vital Name Observation Time Observation Value Comments Source Body Temperature 2019-09-04 11:32:00 98.3 [degF] [facility] Procedures Procedure Date / Time Performed Performing Clinician Sourliliana e EGD BIOPSY SINGLE/MULTIPLE 2019-09-04 00:00:00 [facility] EGD VARICES LIGATION 2019-09-04 00:00:00 [facility] EGD BIOPSY SINGLE/MULTIPLE 2019-05-27 00:00:00 C [facility] EGD VARICES LIGATION 2019-05-27 00:00:00 [facility] BLOOD TRANSFUSION SERVICE 2019-05-23 00:00:00 [facility] CT angiography of neck 2019-04-19 00:00:00 SARA OLIVAS [facility] Computed tomography angiography of brain 2019-04-19 00:00:00 SARA DOYLE [facility] Computed tomography of brain without radiopaque contrast 00:00:00 LUCIA SMYTH [facility] Magnetic resonance imaging of brain without contrast 2019-04 00:00:00 DEVANTE COLLINS [facility] Encounters Start Date/Time End Date/Time Encounter Type Ad[facility] Type [facility] Department Encounter ID Source 2019-11-29 14:58:00 2019-12-16 23:59:00 [facility] [id number] [facility] 2019-11-08 10:42:00 2019-11-15 23:59:00 Discharged Recurring [facility] [id number] [facility] 2019-09-04 08:42:00 2019-09-04 08:42:00 Registered Surgical Day Care [facility] [id number] [facility] 2019-06-24 15:17:00 2019-06-24 15:17:00 Registered Clinic [facility] [id number] [facility] 2019-05-20 13:33:00 2019-06-15 22:59:00 Discharged Recurring [facility] [id number] [facility] 2019-05-27 17:50:00 2019-05-30 13:49:00 Discharged Inpatient (obs) [facility] [id number] [facility] 2019-05-23 09:05:00 2019-05-23 15:23:00 Departed Emergency Room [facility] [id number] [facility] 2019-05-02 14:44:00 2019-05-17 22:59:00 Discharged Recurring [facility] [id number] [facility] 2019-04-19 09:04:00 2019-04-20 14:48:00 Discharged Inpatient 1 KYLE PONCEAHAM [facility] [id number] [facility] 2019-03-21 13:23:00 2019-04-16 22:59:00 Discharged Recurring [facility] [id number] [facility] 2018-12-19 08:48:00 2018-12-22 08:32:00 [id number] 2018-12-05 16:32:00 2018-12-08 12:20:00 Discharged Inpatient (obs) 3 KYLE PONCEAHAM [facility] [id number] [facility] 2018-09-21 18:34:00 2018-09-21 23:59:00 Outpatient Marianela Emerson [facility] [id number] 2018-09-21 18:34:00 2018-09-21 18:34:00 Outpatient [id number] 2013-06-12 11:54:2013-06-12 11:54:05 [id number] Results Test Description Test Time Test Comments Results Result Comments Source Capillary blood glucose measurement by glucometer (mas s/volume) 2019-09-04 11:47:00 Test Item Bedside Glucose (test code = 69818-3) 218 70-120 Meter ID: [id number] [facility] by glucom[facility] (mass/volume)2019-09-04 11:47:00* Test Item Value Reference Range Interpretation Comments Bedside Glucose (test code = 50819-6) 218 70-120 Meter ID: [id number] [facility] procedure less than one hour vnjngfhb3678-53-47 15:45:00* Test Item Value Reference Range Interpretation [...] complexity tests.Testing performed by [facility] [id number] [phone] Director: Etienne Jeffery M.D.CLIA # [id number] [facility] Fluoroscopic procedure less than one hour kmdzycsc3660-23-13 15:45:00* Test Item Value Reference Range Interpretation [...] complexity tests.Testing performed by [facility] [address] [phone] Director: Etienne Jeffery M.D.CLIA # [id number]'s Medical Center DallasBlood leukocytes automated count (number/volume)2019-08-30 15:27:00* Test Item Value Reference Range Interpretation Comments White Blood Count (test code = 6690-2) 6.13 4.8-10.8 [facility] erythrocytes automated count (number/volume)2019-08-30 15:27:00* Test Item Value Reference Range Interpretation Comments Red Blood Count (test code = 789-8) 3.92 4.3-5.7 [facility] hemoglobin measurement (moles/volume)2019-08-30 15:27:00* Test Item Value Reference Range Interpretation Comments Hemoglobin (test code = 99994-4) 11.2 14.0-18.0 [facility] DallasAutomated blood hematocrit (volume fraction)2019-08-30 15:27:00* Test Item Value Reference Range Interpretation Comments Hematocrit (test code = 4544-3) 35.8 38.2-49.6 [facility] DallasAutomated erythrocyte mean corpuscular uermnn5032-80-18 15:27:00* Test Item Value Reference Range Interpretation Comments Mean Corpuscular Volume (test code = 787-2) 91.3 81-99 [facility] DallasAutom[facility] erythrocyte mean corpuscular hemoglobin (mass per erythrocyte)2019-08-30 15:27:00* Test Item Value Reference Range Interpretation Comments Mean Corpuscular Hemoglobin (test code = 785-6) 28.6 28-32 [facility] DallasAutom[facility] erythrocyte mean corpuscular hemoglobin concentration measurement (mass/volume)2019-08-30 15:27:00* Test Item Value Reference Range Interpretation Comments Mean Corpuscular Hemoglobin Concent (test code = 786-4) 31.3 31-35 [facility] DallasRDW VvfCf-Bcz5179-39-15 15:27:00* Test Item Value Reference Range Interpretation Comments Red Cell Distribution Width (test code = 28501-2) 16.1 11.7 -14.4 [facility] DallasAutom[facility] blood platelet count (count/volume)2019-08-30 15:27:00* Test Item Value Reference Range Interpretation Comments Platelet Count (test code = 777-3) 121 140-360 [facility] DallasAutom[facility] blood segmented neutrophil count as percentage of total fgaacmqjpz3601-69-90 15:27:00* Test Item Value Reference Range Interpretation Comments Neutrophils (%) (Auto) (test code = 31421-1) 28.4 38.7-80.0 [facility] DallasAutom[facility] blood lymphocyte count as percentage ot total bukqebufvv5802-54-08 15:27:00* Test Item Value Reference Range Interpretation Comments Lymphocytes (%) (Auto) (test code = 736-9) 54.8 18.0-39.1 [facility] DallasAutom[facility] blood monocyte count as percentage of total qlcrvwfvru6463-40-19 15:27:00* Test Item Value Reference Range Interpretation Comments Monocytes (%) (Auto) (test code = 5905-5) 8.0 4.4-11.3 [facility] DallasAutom[facility] blood eosinophil count as percentage of total lvvgarbkry6840-95-87 15:27:00* Test Item Value Reference Range Interpretation Comments Eosinophils (%) (Auto) (test code = 713-8) 7.8 0.0-6.0 [facility] DallasAutom[facility] blood basophil count as percentage of total vbglejvjox7514-03-73 15:27:00* Test Item Value Reference Range Interpretation Comments Basophils (%) (Auto) (test code = 706-2) 1.0 0.0-1.0 [facility] DallasFluoroscopic procedure less than one hour ymmjoapw2383-36-18 15:27:00* Test Item Value Reference Range Interpretation Comments IM GRANULOCYTES % (test code = IM GRANULOCYTES %) 0.0 0.0- 1.0 [facility] DallasAutom[facility] blood neutrophil count 2019-08-30 15:27:00* Test Item Value Reference Range Interpretation Comments Neutrophils # (Auto) (test code = 751-8) 1.7 2.1-6.9 [facility] DallasBlood lymphocytes count (number/volume) 2019-08-30 15:27:00* Test Item Value Reference Range Interpretation Comments Lymphocytes # (Auto) (test code = 36446-7) 3.4 1.0-3.2 [facility] DallasBlood monocytes automated count (number/volume)2019-08-30 15:27:00* Test Item Value Reference Range Interpretation Comments Monocytes # (Auto) (test code = 742-7) 0.5 0.2-0.8 [facility] DallasAutom[facility] blood eosinophil count 2019-08-30 15:27:00* Test Item Value Reference Range Interpretation Comments Eosinophils # (Auto) (test code = 711-2) 0.5 0.0-0.4 [facility] DallasAutom[facility] blood basophil count (count/volume)2019-08-30 15:27:00* Test Item Value Reference Range Interpretation Comments Basophils # (Auto) (test code = 704-7) 0.1 0.0-0.1 [facility] DallasFluoroscopic procedure less than one hour oyowagvk9014-60-95 15:27:00* Test Item Value Reference Range Interpretation Comments Absolute Immature Granulocyte (auto (anurag t code = Absolute Immature Granulocyte (auto) 0 0-0.1 [facility] DallasProthrombin time (PT) in platelet poor plasma by coagulation pxubo1101-82-00 15:27:00* Test Item Value Reference Range Interpretation Comments Prothrombin Time (test code = 5902-2) 13.1 11.9-14.5 [facility] DallasINR in Platelet poor plasma by Coagulation iizoj7974-41-83 15:27:00* Test Item Value Reference Range Interpretation Comments Prothromb Time International Ratio (test code = 6301-6) 0.94 Oral Anticoagulant Therapy INR Values:1. Low Intensity Therapy 1.5 - 2.02 . Moderate Intensity Therapy 2.0 - 3.03. High Intensity Therapy(1) 2.5 - 3. 54. High Intensity Therapy(2) 3.0 - 4.05. Panic Value INR > 5.0 [facility] DallasActivated partial thromboplastin time (aPTT) in platelet poor plasma by coagulation ctbic2113-29-81 15:27:00* Test Item Value Reference Range Interpretation Comments Activated Partial Thromboplast Time (test code = 88325-3) 32.6 23.8-35.[address] [facility] sodium measurement (moles/volume)2019-08-30 15:27:00* Test Item Value Reference Range Interpretation Comments Sodium Level (test code = 2951-2) 138 136-[address] [facility] [facility] plasma potassium measurement (moles/volume)2019-08-30 15:27:00* Test Item Value Reference Range Interpretation Comments Potassium Level (test code = 2823-3) 4.9 3.5-5.[address] [facility] or plasma chloride measurement (moles/volume)2019-08-30 15:27:00* Test Item Value Reference Range Interpretation Comments Chloride Level (test code = 2075-0) 104 98-[address] [facility] or plasma carbon dioxide, total measurement (moles/volume)2019-08-30 15:27:00* Test Item Value Reference Range Interpretation Comments Carbon Dioxide Level (test code = 2028-9) 25 22-[address] [facility] or plasma anion [id number] 15:27:00* Test Item Value Reference Range Interpretation Comments Anion Gap (test code = 31469-1) 13.9 8-[address] [facility] or plasma urea nitrogen measurement (mass/volume)2019-08-30 15:27:00* Test Item Value Reference Range Interpretation Comments Blood Urea Nitrogen (test code = 3094-0) 12 7-[address] [facility] or plasma creatinine measurement (mass/volume)2019-08-30 15:27:00* Test Item Value Reference Range Interpretation Comments Creatinine (test code = 2160-0) 1.13 0.72-1.[address] [facility] or plasma urea nitrogen/creatinine mass pkibc1480-62-06 15:27:00* Test Item Value Reference Range Interpretation Comments BUN/Creatinine Ratio (test code = 3097-3) 11 6-25 [facility] DallasEstimated glomerular filtration rate (GFR) aogqahzfmvqfc3316-91-38 15:27:00* Test Item Value Reference Range Interpretation Comments Estimat Glomerular Filtration Rate (test code = 543212941) > 60 >60 Ranges were taken from the National Kidney Disease Education Program and the [facility] Kidney Foundation literature.Reference ranges:60 or greater: Wtknot05-20 ( for 3 consecutive months): Chronic kidney disease 15 or less: Kidney failureChildren's Medical Center DallasGlucose oaqdnfyutar2895-93-82 15:27:00* Test Item Value Reference Range Interpretation Comments Glucose Level (test code = AVF2366) 308 74-[address] [facility] or plasma calcium measurement (mass/volume)2019-08-30 15:27:00* Test Item Value Reference Range Interpretation Comments Calcium Level (test code = 28818-6) 9.6 8.4-10.[address] [facility] or plasma total bilirubin measurement (mass/volume)2019-08-30 15:27:00* Test Item Value Reference Range Interpretation Comments Total Bilirubin (test code = 1975-2) 0.6 0.2-1.2 [facility] DallasFluoroscopic procedure less than one hour ddqsezyf2516-78-00 15:27:00* Test Item Value Reference Range Interpretation Comments Aspartate Amino Transf (AST/SGOT) (test code = Aspartate Amino Transf (AST/SGOT)) 37 5-[address] [facility] or plasma alanine aminotransferase measurement (enzymatic activity/volume)2019-08-30 15:27:00* Test Item Value Reference Range Interpretation Comments Alanine Aminotransferase (ALT/SGPT) (test code = 1742-6) 37 0-[address] [facility] or plasma protein measurement (mass/volume)2019-08-30 15:27:00* Test Item Value Reference Range Interpretation Comments Total Protein (test code = 2885-2) 6.3 6.5-8.[address] [facility] plasma albumin measurement (mass/volume)2019-08-30 15:27:00* Test Item Value Reference Range Interpretation Comments Albumin (test code = 1751-7) 3.4 3.5-5.0 [facility] DallasPlasma globulin measurement (mass/volume) 2019-08-30 15:27:00* Test Item Value Reference Range Interpretation Comments Globulin (test code = 11075-3) 2.9 2.3-3.[address] [facility] or plasma albumin/globulin mass fyjbs3093-86-17 15:27:00* Test Item Value Reference Range Interpretation Comments Albumin/Globulin Ratio (test code = 1759-0) 1.2 0.8-2.[address] [facility] or plasma alkaline phosphatase measurement (enzymatic activity/volume)2019-08-30 15:27:00* Test Item Value Reference Range Interpretation Comments Alkaline Phosphatase (test code = 6768-6) 104 40-150 [facility] DallasBlood leukocytes automated count (number/volume)2019-08-30 15:27:00* Test Item Value Reference Range Interpretation Comments White Blood Count (test code = 6690-2) 6.13 4.8-10.8 [facility] erythrocytes automated count (number/volume)2019-08-30 15:27:00* Test Item Value Reference Range Interpretation Comments Red Blood Count (test code = 789-8) 3.92 4.3-5.7 [facility] DallasBlood hemoglobin measurement (moles/volume)2019-08-30 15:27:00* Test Item Value Reference Range Interpretation Comments Hemoglobin (test code = 04837-8) 11.2 14.0-18.0 [facility] DallasAutomated blood hematocrit (volume fraction)2019-08-30 15:27:00* Test Item Value Reference Range Interpretation Comments Hematocrit (test code = 4544-3) 35.8 38.2-49.6 [facility] DallasAutomated erythrocyte mean corpuscular mkumnd5013-17-43 15:27:00* Test Item Value Reference Range Interpretation Comments Mean Corpuscular Volume (test code = 787-2) 91.3 81-99 [facility] DallasAutomated erythrocyte mean corpuscular hemoglobin (mass per erythrocyte)2019-08-30 15:27:00* Test Item Value Reference Range Interpretation Comments Mean Corpuscular Hemoglobin (test code = 785-6) 28.6 28-32 [facility] DallasAutomated erythrocyte mean corpuscular hemoglobin concentration measurement (mass/volume)2019-08-30 15:27:00* Test Item Value Reference Range Interpretation Comments Mean Corpuscular Hemoglobin Concent (test code = 786-4) 31.3 31-35 [facility] DallasRDW JoaMq-Mrt6488-04-15 15:27:00* Test Item Value Reference Range Interpretation Comments Red Cell Distribution Width (test code = 36568-5) 16.1 11.7 -14.4 [facility] DallasAutomated blood platelet count (count/volume)2019-08-30 15:27:00* Test Item Value Reference Range Interpretation Comments Platelet Count (test code = 777-3) 121 140-360 [facility] DallasAutomated blood segmented neutrophil count as percentage of total yngrujbdau7364-94-41 15:27:00* Test Item Value Reference Range Interpretation Comments Neutrophils (%) (Auto) (test code = 95771-4) 28.4 38.7-80.0 [facility] DallasAutomated blood lymphocyte count as percentage ot total erkoihezei2992-24-15 15:27:00* Test Item Value Reference Range Interpretation Comments Lymphocytes (%) (Auto) (test code = 736-9) 54.8 18.0-39.1 [facility] DallasAutomated blood monocyte count as percentage of total etcnpuwegh2527-03-01 15:27:00* Test Item Value Reference Range Interpretation Comments Monocytes (%) (Auto) (test code = 5905-5) 8.0 4.4-11.3 [facility] DallasAutomated blood eosinophil count as percentage of total gkbrdxzloy3174-45-88 15:27:00* Test Item Value Reference Range Interpretation Comments Eosinophils (%) (Auto) (test code = 713-8) 7.8 0.0-6.0 [facility] [place]Autom[place] basophil count as percentage of total zrjpurlgkq6564-22-13 15:27:00* Test Item Value Reference Range Interpretation Comments Basophils (%) (Auto) (test code = 706-2) 1.0 0.0-1.0 [facility] DallasFluoroscopic procedure less than one hour xglqkfvn4100-19-70 15:27:00* Test Item Value Reference Range Interpretation Comments IM GRANULOCYTES % (test code = IM GRANULOCYTES %) 0.0 0.0- 1.0 [facility] DallasAutomated blood neutrophil count 2019-08-30 15:27:00* Test Item Value Reference Range Interpretation Comments Neutrophils # (Auto) (test code = 751-8) 1.7 2.1-6.9 [facility] DallasBlood lymphocytes count (number/volume) 2019-08-30 15:27:00* Test Item Value Reference Range Interpretation Comments Lymphocytes # (Auto) (test code = 78044-3) 3.4 1.0-3.2 [facility] monocytes automated count (number/volume)2019-08-30 15:27:00* Test Item Value Reference Range Interpretation Comments Monocytes # (Auto) (test code = 742-7) 0.5 0.2-0.8 [facility] DallasAutomated blood eosinophil count 2019-08-30 15:27:00* Test Item Value Reference Range Interpretation Comments Eosinophils # (Auto) (test code = 711-2) 0.5 0.0-0.4 [facility] DallasAutomated blood basophil count (count/volume)2019-08-30 15:27:00* Test Item Value Reference Range Interpretation Comments Basophils # (Auto) (test code = 704-7) 0.1 0.0-0.1 [facility] DallasFluoroscopic procedure less than one hour vywxtqal4232-08-08 15:27:00* Test Item Value Reference Range Interpretation Comments Absolute Immature Granulocyte (auto (anurag t code = Absolute Immature Granulocyte (auto) 0 0-0.1 [facility] DallasProthrombin time (PT) in platelet poor plasma by coagulation mkcor7251-73-54 15:27:00* Test Item Value Reference Range Interpretation Comments Prothrombin Time (test code = 5902-2) 13.1 11.9-14.5 [facility] DallasINR in Platelet poor plasma by Coagulation nycrn9713-59-77 15:27:00* Test Item Value Reference Range Interpretation Comments Prothromb Time International Ratio (test code = 6301-6) 0.94 Oral Anticoagulant Therapy INR Values:1. Low Intensity Therapy 1.5 - 2.02 . Moderate Intensity Therapy 2.0 - 3.03. High Intensity Therapy(1) 2.5 - 3. 54. High Intensity Therapy(2) 3.0 - 4.05. Panic Value INR > 5.0 [facility] DallasActivated partial thromboplastin time (aPTT) in platelet poor plasma by coagulation pagyn1235-93-91 15:27:00* Test Item Value Reference Range Interpretation Comments Activated Partial Thromboplast Time (test code = 53832-3) 32.6 23.8-35.[address] [facility] or plasma sodium measurement (moles/volume)2019-08-30 15:27:00* Test Item Value Reference Range Interpretation Comments Sodium Level (test code = 2951-2) 138 136-[address] [facility] [facility] or plasma potassium measurement (moles/volume)2019-08-30 15:27:00* Test Item Value Reference Range Interpretation Comments Potassium Level (test code = 2823-3) 4.9 3.5-5.[address] [facility] Hospitalerum or plasma chloride measurement (moles/volume)2019-08-30 15:27:00* Test Item Value Reference Range Interpretation Comments Chloride Level (test code = 2075-0) 104 98-[address] [facility] Hospitalerum or plasma carbon dioxide, total measurement (moles/volume)2019-08-30 15:27:00* Test Item Value Reference Range Interpretation Comments Carbon Dioxide Level (test code = 2028-9) 25 22-[address] [facility] Hospitalerum or plasma anion byj9241-27-30 15:27:00* Test Item Value Reference Range Interpretation Comments Anion Gap (test code = 32404-8) 13.9 8-[address] [facility] [facility] Hospitalerum or plasma urea nitrogen measurement (mass/volume)2019-08-30 15:27:00* Test Item Value Reference Range Interpretation Comments Blood Urea Nitrogen (test code = 3094-0) 12 7-[address] [facility] Hospitalerum or plasma creatinine measurement (mass/volume)2019-08-30 15:27:00* Test Item Value Reference Range Interpretation Comments Creatinine (test code = 2160-0) 1.13 0.72-1.[address] [facility] Hospitalerum or plasma urea nitrogen/creatinine mass uqrcq8893-80-86 15:27:00* Test Item Value Reference Range Interpretation Comments BUN/Creatinine Ratio (test code = 3097-3) 11 6-25 [facility] DallasEstimated glomerular filtration rate (GFR) vlylbfzrfherz1161-59-99 15:27:00* Test Item Value Reference Range Interpretation Comments Estimat Glomerular Filtration Rate (test code = 490601324) > 60 >60 Ranges were taken from the National Kidney Disease Education Program and the [facility] Kidney Foundation literature.Reference ranges:60 or greater: Lhwlxu27-41 ( for 3 consecutive months): Chronic kidney disease 15 or less: Kidney failureChildren's Medical Center DallasGlucose yprwicidpsr4650-33-75 15:27:00* Test Item Value Reference Range Interpretation Comments Glucose Level (test code = LYI8100) 308 74-[address] [facility] Hospitalerum or plasma calcium measurement (mass/volume)2019-08-30 15:27:00* Test Item Value Reference Range Interpretation Comments Calcium Level (test code = 03963-4) 9.6 8.4-10.[address] [facility] Hospitalerum or plasma total bilirubin measurement (mass/volume)2019-08-30 15:27:00* Test Item Value Reference Range Interpretation Comments Total Bilirubin (test code = 1975-2) 0.6 0.2-1.2 [facility] DallasFluoroscopic procedure less than one hour ibpzshcc8343-11-75 15:27:00* Test Item Value Reference Range Interpretation Comments Aspartate Amino Transf (AST/SGOT) (test code = Aspartate Amino Transf (AST/SGOT)) 37 5-[address] [facility] Hospitalerum or plasma alanine aminotransferase measurement (enzymatic activity/volume)2019-08-30 15:27:00* Test Item Value Reference Range Interpretation Comments Alanine Aminotransferase (ALT/SGPT) (test code = 1742-6) 37 0-[address] [facility] [facility] Hospitalerum or plasma protein measurement (mass/volume)2019-08-30 15:27:00* Test Item Value Reference Range Interpretation Comments Total Protein (test code = 2885-2) 6.3 6.5-8.[address] [facility] Hospitalerum or plasma albumin measurement (mass/volume)2019-08-30 15:27:00* Test Item Value Reference Range Interpretation Comments Albumin (test code = 1751-7) 3.4 3.5-5.0 [facility] DallasPlasma globulin measurement (mass/volume) 2019-08-30 15:27:00* Test Item Value Reference Range Interpretation Comments Globulin (test code = 85952-9) 2.9 2.3-3.[address] [facility] Hospitalerum or plasma albumin/globulin mass apzus5100-71-77 15:27:00* Test Item Value Reference Range Interpretation Comments Albumin/Globulin Ratio (test code = 1759-0) 1.2 0.8-2.[address] [facility] Hospitalerum or plasma alkaline phosphatase measurement (enzymatic activity/volume)2019-08-30 15:27:00* Test Item Value Reference Range Interpretation Comments Alkaline Phosphatase (test code = 6768-6) 104 40-150 [facility] Fxjjdco3350-96-26 12:20:00* Test Item Value Reference Range Interpretation Comments Bedside Glucose (test code = 14143-6) 164 70-120 H Meter ID: [id number] Glucose 2019-05-30 12:20:00* Test Item Value Reference Range Interpretation Comments Bedside Glucose (test code = 78471-4) 164 70-120 H Meter ID: [id number]'s Medical Center DallasDifferential Total Cells Opvucvi0309-09-97 07:50:00* Test Item Value Reference Range Interpretation Comments Differential Total Cells Counted (test code = Differen tial Total Cells Counted) 100 [facility] DallasNeutrophils % (Manual)2019-05-30 07:50:00 * Test Item Value Reference Range Interpretation Comments Neutrophils % (Manual) (test code = 07257-4) 62 40-74 [facility] DallasLymphocytes % (Manual)2019-05-30 07:50:00 * Test Item Value Reference Range Interpretation Comments Lymphocytes % (Manual) (test code = 737-7) 34 19-48 [facility] DallasMonocytes % (Manual)2019-05-30 07:50:00* Test Item Value Reference Range Interpretation Comments Monocytes % (Manual) (test code = 744-3) 4 3.4-9.0 [facility] DallasDifferential Total Cells Counted 2019-05-30 07:50:00* Test Item Value Reference Range Interpretation Comments Differential Total Cells Counted (test code = Differbipin tial Total Cells Counted) 100 [facility] DallasNeutrophils % (Manual)2019-05-30 07:50:00 * Test Item Value Reference Range Interpretation Comments Neutrophils % (Manual) (test code = 31334-2) 62 40-74 [facility] DallasLymphocytes % (Manual)2019-05-30 07:50:00 * Test Item Value Reference Range Interpretation Comments Lymphocytes % (Manual) (test code = 737-7) 34 19-48 [facility] DallasMonocytes % (Manual)2019-05-30 07:50:00* Test Item Value Reference Range Interpretation Comments Monocytes % (Manual) (test code = 744-3) 4 3.4-9.[address] [facility] Hospitalodium Ongzg0273-81-04 05:32:00* Test Item Value Reference Range Interpretation Comments Sodium Level (test code = 2951-2) 141 136-145 [facility] DallasPotassium Rlszk1473-65-31 05:32:00* Test Item Value Reference Range Interpretation Comments Potassium Level (test code = 2823-3) 3.9 3.5-5.1 [facility] DallasChloride Ywjdq3751-77-87 05:32:00* Test Item Value Reference Range Interpretation Comments Chloride Level (test code = 2075-0) 107 98-107 [facility] DallasCarbon Dioxide Jxwlh7218-06-78 05:32:00* Test Item Value Reference Range Interpretation Comments Carbon Dioxide Level (test code = 2028-9) 22 22-29 [facility] DallasAnion Fbj5394-77-78 05:32:00* Test Item Value Reference Range Interpretation Comments Anion Gap (test code = 03229-6) 15.9 8-16 [facility] DallasBlood Urea Qvqyrgky6339-45-02 05:32:00* Test Item Value Reference Range Interpretation Comments Blood Urea Nitrogen (test code = 3094-0) 19 7-26 [facility] DallasCreatinine2020-02-13 05:32:00* Test Item Value Reference Range Interpretation Comments Creatinine (test code = 2160-0) 0.82 0.72-1.25 [facility] DallasBUN/Creatinine Haqvx2405-15-26 05:32:00* Test Item Value Reference Range Interpretation Comments BUN/Creatinine Ratio (test code = 3097-3) 23 6- [facility] DallasEstimat Glomerular Filtration Rate 2019-05-30 05:32:00* Test Item Value Reference Range Interpretation Comments Estimat Glomerular Filtration Rate (test code = 514008850) > 60 >60 Ranges were taken from the National Kidney Disease Education Program and the [facility] Kidney Foundation literature.Reference ranges:60 or greater: Hwfcqa86-97 ( for 3 consecutive months): Chronic kidney disease 15 or less: Kidney failureChildren's Medical Center DallasGlucose Rkymx7124-93-26 05:32:00* Test Item Value Reference Range Interpretation Comments Glucose Level (test code = XXF8220) 147 74-118 H [facility] DallasCalcium Yuznr8722-29-87 05:32:00* Test Item Value Reference Range Interpretation Comments Calcium Level (test code = 93476-3) 8.9 8.4-10.[address] [facility] Hospitalodium Wysjc3154-61-73 05:32:00* Test Item Value Reference Range Interpretation Comments Sodium Level (test code = 2951-2) 141 136-145 [facility] DallasPotassium Udszx8799-88-24 05:32:00* Test Item Value Reference Range Interpretation Comments Potassium Level (test code = 2823-3) 3.9 3.5-5.1 [facility] DallasChloride Sjwol4500-64-74 05:32:00* Test Item Value Reference Range Interpretation Comments Chloride Level (test code = 2075-0) 107 98-107 [facility] DallasCarbon Dioxide Rxlll0093-62-84 05:32:00* Test Item Value Reference Range Interpretation Comments Carbon Dioxide Level (test code = 2028-9) 22 22-29 [facility] DallasAnion Kan6631-00-78 05:32:00* Test Item Value Reference Range Interpretation Comments Anion Gap (test code = 01317-0) 15.9 8-16 [facility] DallasBlood Urea Gchglxzc9622-68-51 05:32:00* Test Item Value Reference Range Interpretation Comments Blood Urea Nitrogen (test code = 3094-0) 19 7-26 [facility] DallasCreatinine2020-02-13 05:32:00* Test Item Value Reference Range Interpretation Comments Creatinine (test code = 2160-0) 0.82 0.72-1.25 [facility] DallasBUN/Creatinine Jcszg3519-76-08 05:32:00* Test Item Value Reference Range Interpretation Comments BUN/Creatinine Ratio (test code = 3097-3) 23 6- [facility] DallasEstimat Glomerular Filtration Rate 2019-05-30 05:32:00* Test Item Value Reference Range Interpretation Comments Estimat Glomerular Filtration Rate (test code = 911187666) > 60 >60 Ranges were taken from the National Kidney Disease Education Program and the [facility] Kidney Foundation literature.Reference ranges:60 or greater: Eacmpm70-35 ( for 3 consecutive months): Chronic kidney disease 15 or less: Kidney failureChildren's Medical Center DallasGlucose Gwknd5175-25-45 05:32:00* Test Item Value Reference Range Interpretation Comments Glucose Level (test code = NBF9568) 147 74-118 H [facility] DallasCalcium Ioywh1496-84-99 05:32:00* Test Item Value Reference Range Interpretation Comments Calcium Level (test code = 01965-3) 8.9 8.4-10.2 [facility] DallasWhite Blood Vayvq4412-75-81 05:07:00* Test Item Value Reference Range Interpretation Comments White Blood Count (test code = 6690-2) 11.59 4.8-10.8 H [facility] DallasRed Blood Ygcku7095-49-73 05:07:00* Test Item Value Reference Range Interpretation Comments Red Blood Count (test code = 789-8) 3.17 4.3-5.7 L [facility] DallasHemoglobin2020-02-13 05:07:00* Test Item Value Reference Range Interpretation Comments Hemoglobin (test code = 44451-0) 8.4 14.0-18.0 L [facility] DallasHematocrit2020-02-13 05:07:00* Test Item Value Reference Range Interpretation Comments Hematocrit (test code = 4544-3) 27.7 38.2-49.6 L [facility] DallasMean Corpuscular Czxpte7859-59-37 05:07:00* Test Item Value Reference Range Interpretation Comments Mean Corpuscular Volume (test code = 787-2) 87.4 81-99 [facility] DallasMean Corpuscular Cmqclbximw7749-05-55 05:07:00* Test Item Value Reference Range Interpretation Comments Mean Corpuscular Hemoglobin (test code = 785-6) 26.5 28-32 L [facility] DallasMean Corpuscular Hemoglobin Concent 2019-05-30 05:07:00* Test Item Value Reference Range Interpretation Comments Mean Corpuscular Hemoglobin Concent (test code = 786-4) 30.3 31-35 L [facility] DallasRed Cell Distribution Xzcgx6784-80-95 05:07:00* Test Item Value Reference Range Interpretation Comments Red Cell Distribution Width (test code = 70428-9) 14.7 11.7 -14.4 H [facility] DallasPlatelet Inbeo0616-11-81 05:07:00* Test Item Value Reference Range Interpretation Comments Platelet Count (test code = 777-3) 157 140-360 [facility] DallasNeutrophils (%) (Auto)2019-05-30 05:07:00 * Test Item Value Reference Range Interpretation Comments Neutrophils (%) (Auto) (test code = 69296-7) 55.3 38.7-80.0 [facility] DallasLymphocytes (%) (Auto)2019-05-30 05:07:00 * Test Item Value Reference Range Interpretation Comments Lymphocytes (%) (Auto) (test code = 736-9) 38.1 18.0-39.1 [facility] DallasMonocytes (%) (Auto)2019-05-30 05:07:00* Test Item Value Reference Range Interpretation Comments Monocytes (%) (Auto) (test code = 5905-5) 5.7 4.4-11.3 [facility] DallasEosinophils (%) (Auto)2019-05-30 05:07:00 * Test Item Value Reference Range Interpretation Comments Eosinophils (%) (Auto) (test code = 713-8) 0.3 0.0-6.0 [facility] DallasBasophils (%) (Auto)2019-05-30 05:07:00* Test Item Value Reference Range Interpretation Comments Basophils (%) (Auto) (test code = 706-2) 0.3 0.0-1.0 [facility] DallasIM GRANULOCYTES %2019-05-30 05:07:00* Test Item Value Reference Range Interpretation Comments IM GRANULOCYTES % (test code = IM GRANULOCYTES %) 0.3 0.0- 1.0 [facility] DallasNeutrophils # (Auto)2019-05-30 05:07:00* Test Item Value Reference Range Interpretation Comments Neutrophils # (Auto) (test code = 751-8) 6.4 2.1-6.9 [facility] DallasLymphocytes # (Auto)2019-05-30 05:07:00* Test Item Value Reference Range Interpretation Comments Lymphocytes # (Auto) (test code = 15874-2) 4.4 1.0-3.2 H [facility] DallasMonocytes # (Auto)2019-05-30 05:07:00* Test Item Value Reference Range Interpretation Comments Monocytes # (Auto) (test code = 742-7) 0.7 0.2-0.8 [facility] DallasEosinophils # (Auto)2019-05-30 05:07:00* Test Item Value Reference Range Interpretation Comments Eosinophils # (Auto) (test code = 711-2) 0.0 0.0-0.4 [facility] DallasBasophils # (Auto)2019-05-30 05:07:00* Test Item Value Reference Range Interpretation Comments Basophils # (Auto) (test code = 704-7) 0.0 0.0-0.1 [facility] DallasAbsolute Immature Granulocyte (auto 2019-05-30 05:07:00* Test Item Value Reference Range Interpretation Comments Absolute Immature Granulocyte (auto (anurag t code = Absolute Immature Granulocyte (auto) 0.03 0-0.1 [facility] DallasWhite Blood Icwjk5927-28-63 05:07:00* Test Item Value Reference Range Interpretation Comments White Blood Count (test code = 6690-2) 11.59 4.8-10.8 H [facility] DallasRed Blood Bfmez4775-86-06 05:07:00* Test Item Value Reference Range Interpretation Comments Red Blood Count (test code = 789-8) 3.17 4.3-5.7 L [facility] DallasHemoglobin2020-02-13 05:07:00* Test Item Value Reference Range Interpretation Comments Hemoglobin (test code = 94473-3) 8.4 14.0-18.0 L [facility] DallasHematocrit2020-02-13 05:07:00* Test Item Value Reference Range Interpretation Comments Hematocrit (test code = 4544-3) 27.7 38.2-49.6 L [facility] DallasMean Corpuscular Rccvqb7967-27-61 05:07:00* Test Item Value Reference Range Interpretation Comments Mean Corpuscular Volume (test code = 787-2) 87.4 81-99 [facility] DallasMean Corpuscular Wqkgdofxjh1008-97-39 05:07:00* Test Item Value Reference Range Interpretation Comments Mean Corpuscular Hemoglobin (test code = 785-6) 26.5 28-32 L [facility] DallasMean Corpuscular Hemoglobin Concent 2019-05-30 05:07:00* Test Item Value Reference Range Interpretation Comments Mean Corpuscular Hemoglobin Concent (test code = 786-4) 30.3 31-35 L [facility] DallasRed Cell Distribution Tgokl8615-41-55 05:07:00* Test Item Value Reference Range Interpretation Comments Red Cell Distribution Width (test code = 82039-4) 14.7 11.7 -14.4 H [facility] DallasPlatelet Qxtxq8990-99-29 05:07:00* Test Item Value Reference Range Interpretation Comments Platelet Count (test code = 777-3) 157 140-360 [facility] DallasNeutrophils (%) (Auto)2019-05-30 05:07:00 * Test Item Value Reference Range Interpretation Comments Neutrophils (%) (Auto) (test code = 24415-2) 55.3 38.7-80.0 [facility] DallasLymphocytes (%) (Auto)2019-05-30 05:07:00 * Test Item Value Reference Range Interpretation Comments Lymphocytes (%) (Auto) (test code = 736-9) 38.1 18.0-39.1 [facility] DallasMonocytes (%) (Auto)2019-05-30 05:07:00* Test Item Value Reference Range Interpretation Comments Monocytes (%) (Auto) (test code = 5905-5) 5.7 4.4-11.3 [facility] DallasEosinophils (%) (Auto)2019-05-30 05:07:00 * Test Item Value Reference Range Interpretation Comments Eosinophils (%) (Auto) (test code = 713-8) 0.3 0.0-6.0 [facility] DallasBasophils (%) (Auto)2019-05-30 05:07:00* Test Item Value Reference Range Interpretation Comments Basophils (%) (Auto) (test code = 706-2) 0.3 0.0-1.0 [facility] DallasIM GRANULOCYTES %2019-05-30 05:07:00* Test Item Value Reference Range Interpretation Comments IM GRANULOCYTES % (test code = IM GRANULOCYTES %) 0.3 0.0- 1.0 [facility] DallasNeutrophils # (Auto)2019-05-30 05:07:00* Test Item Value Reference Range Interpretation Comments Neutrophils # (Auto) (test code = 751-8) 6.4 2.1-6.9 [facility] DallasLymphocytes # (Auto)2019-05-30 05:07:00* Test Item Value Reference Range Interpretation Comments Lymphocytes # (Auto) (test code = 27454-5) 4.4 1.0-3.2 H [facility] DallasMonocytes # (Auto)2019-05-30 05:07:00* Test Item Value Reference Range Interpretation Comments Monocytes # (Auto) (test code = 742-7) 0.7 0.2-0.8 [facility] DallasEosinophils # (Auto)2019-05-30 05:07:00* Test Item Value Reference Range Interpretation Comments Eosinophils # (Auto) (test code = 711-2) 0.0 0.0-0.4 [facility] DallasBasophils # (Auto)2019-05-30 05:07:00* Test Item Value Reference Range Interpretation Comments Basophils # (Auto) (test code = 704-7) 0.0 0.0-0.1 [facility] DallasAbsolute Immature Granulocyte (auto 2019-05-30 05:07:00* Test Item Value Reference Range Interpretation Comments Absolute Immature Granulocyte (auto (anurag t code = Absolute Immature Granulocyte (auto) 0.03 0-0.1 [facility] DallasFluoroscopic procedure less than one hour aljuacdl0739-19-92 03:45:00* Test Item Value Reference Range Interpretation Comments Differential Total Cells Counted (test code = Differen tial Total Cells Counted) 100 [facility] DallasManual blood neutrophils/100 leukocytes 2019-05-30 03:45:00* Test Item Value Reference Range Interpretation Comments Neutrophils % (Manual) (test code = 32488-8) 62 40-74 [facility] blood lymphocytes/100 leukocytes 2019-05-30 03:45:00* Test Item Value Reference Range Interpretation Comments Lymphocytes % (Manual) (test code = 737-7) 34 19-48 [facility] DallasManual blood monocytes/100 leukocytes 2019-05-30 03:45:00* Test Item Value Reference Range Interpretation Comments Monocytes % (Manual) (test code = 744-3) 4 3.4-9.0 [facility] DallasFluoroscopic procedure less than one hour nlmegmzu6183-68-25 03:45:00* Test Item Value Reference Range Interpretation Comments Differential Total Cells Counted (test code = Differen tial Total Cells Counted) 100 [facility] leukocytes 2019-05-30 03:45:00* Test Item Value Reference Range Interpretation Comments Neutrophils % (Manual) (test code = 67132-6) 62 40-74 [facility]ual [facility] lymphocytes/100 leukocytes 2019-05-30 03:45:00* Test Item Value Reference Range Interpretation Comments Lymphocytes % (Manual) (test code = 737-7) 34 19-48 [facility] DallasManual blood monocytes/100 leukocytes 2019-05-30 03:45:00* Test Item Value Reference Range Interpretation Comments Monocytes % (Manual) (test code = 744-3) 4 3.4-9.0 [facility] DallasToshriners hospitals for [facility] Kixeomgls8204-24-37 05:49:00* Test Item Value Reference Range Interpretation Comments Total Bilirubin (test code = 1975-2) 0.8 0.2-1.2 [facility] DallasAspartate Amino Transf (AST/SGOT) 2019-05-29 05:49:00* Test Item Value Reference Range Interpretation Comments Aspartate Amino Transf (AST/SGOT) (test code = Aspartate Amino Transf (AST/SGOT)) 33 5-34 [facility] DallasAlanine Aminotransferase (ALT/SGPT) 2019-05-29 05:49:00* Test Item Value Reference Range Interpretation Comments Alanine Aminotransferase (ALT/SGPT) (test code = 1742-6) 33 0-55 [facility] Iztsrjh3550-64-07 05:49:00* Test Item Value Reference Range Interpretation Comments Total Protein (test code = 2885-2) 5.6 6.5-8.1 L [facility] DallasAlbumin2020-02-12 05:49:00* Test Item Value Reference Range Interpretation Comments Albumin (test code = 1751-7) 2.9 3.5-5.0 L [facility] [facility] DallasGlobulin[facility] 05:49:00* Test Item Value Reference Range Interpretation Comments Globulin (test code = 73593-1) 2.7 2.3-3.5 [facility] DallasAlbumin/Globulin Wmmra7321-37-18 05:49:00 * Test Item Value Reference Range Interpretation Comments Albumin/Globulin Ratio (test code = 1759-0) 1.1 0.8-2.0 [facility] DallasAlkaline Npemmgbjosp4054-78-41 05:49:00* Test Item Value Reference Range Interpretation Comments Alkaline Phosphatase (test code = 6768-6) 104 40-150 [facility] DallasTotal Rvwivnlkj1857-18-85 05:49:00* Test Item Value Reference Range Interpretation Comments Total Bilirubin (test code = 1975-2) 0.8 0.2-1.2 [facility] DallasAspartate Amino Transf (AST/SGOT) 2019-05-29 05:49:00* Test Item Value Reference Range Interpretation Comments Aspartate Amino Transf (AST/SGOT) (test code = Aspartate Amino Transf (AST/SGOT)) 33 5-34 [facility] DallasAlanine Aminotransferase (ALT/SGPT) 2019-05-29 05:49:00* Test Item Value Reference Range Interpretation Comments Alanine Aminotransferase (ALT/SGPT) (test code = 1742-6) 33 0-55 [facility] DallasTotal Nkfxbjm4577-13-69 05:49:00* Test Item Value Reference Range Interpretation Comments Total Protein (test code = 2885-2) 5.6 6.5-8.1 L [facility] DallasAlbumin2020-02-12 05:49:00* Test Item Value Reference Range Interpretation Comments Albumin (test code = 1751-7) 2.9 3.5-5.0 L [facility] DallasGlobulin2020-02-12 05:49:00* Test Item Value Reference Range Interpretation Comments Globulin (test code = 37094-3) 2.7 2.3-3.5 [facility] DallasAlbumin/Globulin Xvqbs7905-66-27 05:49:00 * Test Item Value Reference Range Interpretation Comments Albumin/Globulin Ratio (test code = 1759-0) 1.1 0.8-2.0 [facility] DallasAlkaline Alexcgimrzg5157-58-88 05:49:00* Test Item Value Reference Range Interpretation Comments Alkaline Phosphatase (test code = 6768-6) 104 40-150 [facility]2020-02-11 11:23:00* Test Item Value Reference Range Interpretation Comments Ammonia (test code = 54994-5) 126 31-123 [facility]2020-02-11 11:23:00* Test Item Value Reference Range Interpretation Comments Ammonia (test code = 15555-7) 126 31-123 H [facility] DallasProthrombin Hknb1544-62-07 11:11:00* Test Item Value Reference Range Interpretation Comments Prothrombin Time (test code = 5902-2) 15.2 11.9-14.5 H [facility] DallasProthromb Time International Ratio 2019-05-28 11:11:00* Test Item Value Reference Range Interpretation Comments Prothromb Time International Ratio (test code = 6301-6) 1.13 Oral Anticoagulant Therapy INR Values:1. Low Intensity Therapy 1.5 - 2.02 . Moderate Intensity Therapy 2.0 - 3.03. High Intensity Therapy(1) 2.5 - 3. 54. High Intensity Therapy(2) 3.0 - 4.05. Panic Value INR > 5.0 [facility] DallasProthrombin Hxjc3419-28-66 11:11:00* Test Item Value Reference Range Interpretation Comments Prothrombin Time (test code = 5902-2) 15.2 11.9-14.5 H [facility] DallasProthromb Time International Ratio 2019-05-28 11:11:00* Test Item Value Reference Range Interpretation Comments Prothromb Time International Ratio (test code = 6301-6) 1.13 Oral Anticoagulant Therapy INR Values:1. Low Intensity Therapy 1.5 - 2.02 . Moderate Intensity Therapy 2.0 - 3.03. High Intensity Therapy(1) 2.5 - 3. 54. High Intensity Therapy(2) 3.0 - 4.05. Panic Value INR > 5.0 [facility]2020-02-11 09:50:00* Test Item Value Reference Range Interpretation Comments Ammonia (test code = 44886-1) 126 31-123 [facility] [place]2020-02-11 09:50:00* Test Item Value Reference Range Interpretation Comments Ammonia (test code = 35544-5) 126 31-123 [facility] DallasPlatelet Bunfkwtj7901-25-40 21:34:00* Test Item Value Reference Range Interpretation Comments Platelet Estimate (test code = 35939-1) ADEQUATE [facility] DallasPlatelet Morphology Dteedwt4972-59-57 21:34:00* Test Item Value Reference Range Interpretation Comments Platelet Morphology Comment (test code = 00258-1) NORMAL [facility] DallasHypochromasia2020-02-10 21:34:00* Test Item Value Reference Range Interpretation Comments Hypochromasia (test code = 728-6) SLIGHT [facility] DallasRed Cell Morphology Ydgftud2391-90-43 21:34:00* Test Item Value Reference Range Interpretation Comments Red Cell Morphology Comment (test code = 6742-1) NORMAL [facility] DallasPlatelet Xubojnrr0893-67-92 21:34:00* Test Item Value Reference Range Interpretation Comments Platelet Estimate (test code = 09410-9) ADEQUATE [facility] DallasPlatelet Morphology Tagvlej4066-61-07 21:34:00* Test Item Value Reference Range Interpretation Comments Platelet Morphology Comment (test code = 81384-1) NORMAL [facility] DallasHypochromasia2020-02-10 21:34:00* Test Item Value Reference Range Interpretation Comments Hypochromasia (test code = 728-6) SLIGHT [facility] DallasRed Cell Morphology Bvzssmb4390-47-35 21:34:00* Test Item Value Reference Range Interpretation Comments Red Cell Morphology Comment (test code = 6742-1) NORMAL [facility]2020-02-10 20:22:00* Test Item Value Reference Range Interpretation Comments Iron Level (test code = 2498-4) 10 65-175 L [facility] DallasTotal Iron Binding Yzovcucd4219-28-85 20:22:00* Test Item Value Reference Range Interpretation Comments Total Iron Binding Capacity (test code = 2500-7) 568 261-4 78 H [facility] DallasPercent Iron Kpdehovuml7629-78-63 20:22:00* Test Item Value Reference Range Interpretation Comments Percent Iron Saturation (test code = 2502-3) 2 15-50 L [facility] DallasTransferrin2020-02-10 20:22:00* Test Item Value Reference Range Interpretation Comments Transferrin (test code = 3034-6) 406 174-364 H [facility] Votky8911-46-73 20:22:00* Test Item Value Reference Range Interpretation Comments Iron Level (test code = 2498-4) 10 65-175 L [facility] DallasTotal Iron Binding Udvgbqsu6295-30-03 20:22:00* Test Item Value Reference Range Interpretation Comments Total Iron Binding Capacity (test code = 2500-7) 568 261-4 78 H [facility] DallasPercent Iron Uzpkrfuztw0433-96-07 20:22:00* Test Item Value Reference Range Interpretation Comments Percent Iron Saturation (test code = 2502-3) 2 15-50 L [facility] DallasTransferrin2020-02-10 20:22:00* Test Item Value Reference Range Interpretation Comments Transferrin (test code = 3034-6) 406 174-364 H [facility] DallasActivated Partial Thromboplast Time 2019-05-27 20:19:00* Test Item Value Reference Range Interpretation Comments Activated Partial Thromboplast Time (test code = 07878-2) 33.7 23.8-35.5 [facility] DallasActivated Partial Thromboplast Time 2019-05-27 20:19:00* Test Item Value Reference Range Interpretation Comments Activated Partial Thromboplast Time (test code = 95385-2) 33.7 23.8-35.5 [facility] DallasBlol[facility] platelets count by estimate (number/volume)2019-05-27 18:55:00* Test Item Value Reference Range Interpretation Comments Platelet Estimate (test code = 20106-2) ADEQUATE [facility] DallasPlatelet edidutjedv4842-63-63 18:55:00* Test Item Value Reference Range Interpretation Comments Platelet Morphology Comment (test code = 14710-4) NORMAL [facility] hypochromia detection by light uvgjolhkfy1280-56-85 18:55:00* Test Item Value Reference Range Interpretation Comments Hypochromasia (test code = 728-6) SLIGHT [facility] DallasRB ljbulmdxyb3210-44-15 18:55:00* Test Item Value Reference Range Interpretation Comments Red Cell Morphology Comment (test code = 6742-1) NORMAL [facility] iron measurement (mass/volume)2019-05-27 18:55:00* Test Item Value Reference Range Interpretation Comments Iron Level (test code = 2498-4) 10 65-[address] [facility] or plasma iron binding capacity measurement (mass/volume)2019-05-27 18:55:00* Test Item Value Reference Range Interpretation Comments Total Iron Binding Capacity (test code = 2500-7) 568 261-[address] [facility] or plasma iron saturation measurement (mass fraction)2019-05-27 18:55:00* Test Item Value Reference Range Interpretation Comments Percent Iron Saturation (test code = 2502-3) 2 15-[address] [facility] or plasma transferrin measurement (mass/volume)2019-05-27 18:55:00* Test Item Value Reference Range Interpretation Comments Transferrin (test code = 3034-6) 406 174-364 [facility] DallasBlol[facility] platelets count by estimate (number/volume)2019-05-27 18:55:00* Test Item Value Reference Range Interpretation Comments Platelet Estimate (test code = 39359-3) ADEQUATE [facility] DallasPlatelet srdgcwavmj3855-23-52 18:55:00* Test Item Value Reference Range Interpretation Comments Platelet Morphology Comment (test code = 25639-9) NORMAL [facility] DallasBlood hypochromia detection by light pxndkqbrsx9116-40-21 18:55:00* Test Item Value Reference Range Interpretation Comments Hypochromasia (test code = 728-6) SLIGHT [facility] DallasRBC bwldmsjjpa1796-38-42 18:55:00* Test Item Value Reference Range Interpretation Comments Red Cell Morphology Comment (test code = 6742-1) NORMAL [facility] or plasma iron measurement (mass/volume)2019-05-27 18:55:00* Test Item Value Reference Range Interpretation Comments Iron Level (test code = 2498-4) 10 65-[address] [facility] or plasma iron binding capacity measurement (mass/volume)2019-05-27 18:55:00* Test Item Value Reference Range Interpretation Comments Total Iron Binding Capacity (test code = 2500-7) 568 261-[address] [facility]er[facility] or plasma iron saturation measurement (mass fraction)2019-05-27 18:55:00* Test Item Value Reference Range Interpretation Comments Percent Iron Saturation (test code = 2502-3) 2 15-[address] [facility]erum or plasma transferrin measurement (mass/volume)2019-05-27 18:55:00* Test Item Value Reference Range Interpretation Comments Transferrin (test code = 3034-6) 406 174-364 [facility] DallasWhite Blood Xhcro4949-08-56 16:07:00* Test Item Value Reference Range Interpretation Comments White Blood Count (test code = 6690-2) 6.51 4.8-10.8 [facility] DallasRed Blood Thmju2555-52-97 16:07:00* Test Item Value Reference Range Interpretation Comments Red Blood Count (test code = 789-8) 2.41 4.3-5.7 L [facility] DallasHemoglobin2020-02-06 16:07:00* Test Item Value Reference Range Interpretation Comments Hemoglobin (test code = 95287-4) 6.7 14.0-18.0 LL Results called to ALEC MOORE at 1606 on 05/23/19 by NILTON RAMIREZ. RB O K.[facility] DallasHematocrit2020-02-06 16:07:00* Test Item Value Reference Range Interpretation Comments Hematocrit (test code = 4544-3) 21.8 38.2-49.6 L [facility] DallasMean Corpuscular Gyixlm6585-85-12 16:07:00* Test Item Value Reference Range Interpretation Comments Mean Corpuscular Volume (test code = 787-2) 90.5 81-99 [facility] DallasMean Corpuscular Qngfkslgzn8818-62-16 16:07:00* Test Item Value Reference Range Interpretation Comments Mean Corpuscular Hemoglobin (test code = 785-6) 27.8 28-32 L [facility] DallasMean Corpuscular Hemoglobin Concent 2019-05-23 16:07:00* Test Item Value Reference Range Interpretation Comments Mean Corpuscular Hemoglobin Concent (test code = 786-4) 30.7 31-35 L [facility] DallasRed Cell Distribution Ksgry0827-98-11 16:07:00* Test Item Value Reference Range Interpretation Comments Red Cell Distribution Width (test code = 89635-2) 14.3 11.7 -14.4 [facility] DallasPlatelet Csfvt9757-76-95 16:07:00* Test Item Value Reference Range Interpretation Comments Platelet Count (test code = 777-3) 135 140-360 L [facility] DallasNeutrophils (%) (Auto)2019-05-23 16:07:00 * Test Item Value Reference Range Interpretation Comments Neutrophils (%) (Auto) (test code = 98954-6) 30.6 38.7-80.0 L [facility] DallasLymphocytes (%) (Auto)2019-05-23 16:07:00 * Test Item Value Reference Range Interpretation Comments Lymphocytes (%) (Auto) (test code = 736-9) 53.9 18.0-39.1 H [facility] DallasMonocytes (%) (Auto)2019-05-23 16:07:00* Test Item Value Reference Range Interpretation Comments Monocytes (%) (Auto) (test code = 5905-5) 8.3 4.4-11.3 [facility] DallasEosinophils (%) (Auto)2019-05-23 16:07:00 * Test Item Value Reference Range Interpretation Comments Eosinophils (%) (Auto) (test code = 713-8) 6.5 0.0-6.0 H [facility] DallasBasophils (%) (Auto)2019-05-23 16:07:00* Test Item Value Reference Range Interpretation Comments Basophils (%) (Auto) (test code = 706-2) 0.5 0.0-1.0 [facility] DallasIM GRANULOCYTES %2019-05-23 16:07:00* Test Item Value Reference Range Interpretation Comments IM GRANULOCYTES % (test code = IM GRANULOCYTES %) 0.2 0.0- 1.0 [facility] DallasNeutrophils # (Auto)2019-05-23 16:07:00* Test Item Value Reference Range Interpretation Comments Neutrophils # (Auto) (test code = 751-8) 2.0 2.1-6.9 L [facility] DallasLymphocytes # (Auto)2019-05-23 16:07:00* Test Item Value Reference Range Interpretation Comments Lymphocytes # (Auto) (test code = 71008-1) 3.5 1.0-3.2 H [facility] DallasMonocytes # (Auto)2019-05-23 16:07:00* Test Item Value Reference Range Interpretation Comments Monocytes # (Auto) (test code = 742-7) 0.5 0.2-0.8 [facility] DallasEosinophils # (Auto)2019-05-23 16:07:00* Test Item Value Reference Range Interpretation Comments Eosinophils # (Auto) (test code = 711-2) 0.4 0.0-0.4 [facility] DallasBasophils # (Auto)2019-05-23 16:07:00* Test Item Value Reference Range Interpretation Comments Basophils # (Auto) (test code = 704-7) 0.0 0.0-0.1 [facility] DallasAbsolute Immature Granulocyte (auto 2019-05-23 16:07:00* Test Item Value Reference Range Interpretation Comments Absolute Immature Granulocyte (auto (anurag t code = Absolute Immature Granulocyte (auto) 0.01 0-0.1 [facility] DallasDifferential Total Cells Counted 2019-05-23 13:38:00* Test Item Value Reference Range Interpretation Comments Differential Total Cells Counted (test code = Differen tial Total Cells Counted) 100 [facility] DallasNeutrophils % (Manual)2019-05-23 13:38:00 * Test Item Value Reference Range Interpretation Comments Neutrophils % (Manual) (test code = 47645-0) 36 40-74 L [facility] DallasLymphocytes % (Manual)2019-05-23 13:38:00 * Test Item Value Reference Range Interpretation Comments Lymphocytes % (Manual) (test code = 737-7) 56 19-48 H [facility] DallasMonocytes % (Manual)2019-05-23 13:38:00* Test Item Value Reference Range Interpretation Comments Monocytes % (Manual) (test code = 744-3) 4 3.4-9.0 [facility] DallasEosinophils % (Manual)2019-05-23 13:38:00 * Test Item Value Reference Range Interpretation Comments Eosinophils % (Manual) (test code = 714-6) 4 0-7 [facility] DallasEosinophils % (Manual)2019-05-23 13:38:00 * Test Item Value Reference Range Interpretation Comments Eosinophils % (Manual) (test code = 714-6) 4 0-7 [facility] DallasEosinophils % (Manual)2019-05-23 13:38:00 * Test Item Value Reference Range Interpretation Comments Eosinophils % (Manual) (test code = 714-6) 4 0-7 [facility] DallasProthrombin Skmf4893-30-91 11:50:00* Test Item Value Reference Range Interpretation Comments Prothrombin Time (test code = 5902-2) 13.8 11.9-14.5 [facility] DallasProthromb Time International Ratio 2019-05-23 11:50:00* Test Item Value Reference Range Interpretation Comments Prothromb Time International Ratio (test code = 6301-6) 1.04 Oral Anticoagulant Therapy INR Values:1. Low Intensity Therapy 1.5 - 2.02 . Moderate Intensity Therapy 2.0 - 3.03. High Intensity Therapy(1) 2.5 - 3. 54. High Intensity Therapy(2) 3.0 - 4.05. Panic Value INR > 5.0 [facility] DallasActivated Partial Thromboplast Time 2019-05-23 11:50:00* Test Item Value Reference Range Interpretation Comments Activated Partial Thromboplast Time (test code = 02635-8) 34.9 23.8-35.[address] [facility] Hospitalodium Ryoxx4694-47-45 11:17:00* Test Item Value Reference Range Interpretation Comments Sodium Level (test code = 2951-2) 137 136-145 [facility] DallasPotassium Iuvaw6301-63-90 11:17:00* Test Item Value Reference Range Interpretation Comments Potassium Level (test code = 2823-3) 4.0 3.5-5.1 [facility] DallasChloride Kxotn9375-85-87 11:17:00* Test Item Value Reference Range Interpretation Comments Chloride Level (test code = 2075-0) 105 98-107 [facility] DallasCarbon Dioxide Plkll2630-77-39 11:17:00* Test Item Value Reference Range Interpretation Comments Carbon Dioxide Level (test code = 2028-9) 21 22-29 L [facility] DallasAnion Bcg1007-06-29 11:17:00* Test Item Value Reference Range Interpretation Comments Anion Gap (test code = 66032-7) 15.0 8-16 [facility] DallasBlood Urea Vwrgiirh8609-69-25 11:17:00* Test Item Value Reference Range Interpretation Comments Blood Urea Nitrogen (test code = 3094-0) 11 7-26 [facility] DallasCreatinine2020-02-06 11:17:00* Test Item Value Reference Range Interpretation Comments Creatinine (test code = 2160-0) 0.92 0.72-1.25 [facility] DallasBUN/Creatinine Mmvtb9318-14-30 11:17:00* Test Item Value Reference Range Interpretation Comments BUN/Creatinine Ratio (test code = 3097-3) 12 6-25 [facility] DallasEstimat Glomerular Filtration Rate 2019-05-23 11:17:00* Test Item Value Reference Range Interpretation Comments Estimat Glomerular Filtration Rate (test code = 661514743) > 60 >60 Ranges were taken from the National Kidney Disease Education Program and the [facility] Kidney Foundation literature.Reference ranges:60 or greater: Elymbz50-39 ( for 3 consecutive months): Chronic kidney disease 15 or less: Kidney failureChildren's Medical Center DallasGlucose Cybax6158-13-10 11:17:00* Test Item Value Reference Range Interpretation Comments Glucose Level (test code = IOI8045) 202 74-118 H [facility] DallasCalcium Asvpr9477-44-02 11:17:00* Test Item Value Reference Range Interpretation Comments Calcium Level (test code = 98661-9) 8.6 8.4-10.2 [facility] DallasTotal Kyuinyfcp7728-99-36 11:17:00* Test Item Value Reference Range Interpretation Comments Total Bilirubin (test code = 1975-2) 0.6 0.2-1.2 [facility] DallasAspartate Amino Transf (AST/SGOT) 2019-05-23 11:17:00* Test Item Value Reference Range Interpretation Comments Aspartate Amino Transf (AST/SGOT) (test code = Aspartate Amino Transf (AST/SGOT)) 35 5-34 H [facility] DallasAlanine Aminotransferase (ALT/SGPT) 2019-05-23 11:17:00* Test Item Value Reference Range Interpretation Comments Alanine Aminotransferase (ALT/SGPT) (test code = 1742-6) 29 0-55 [facility] DallasTotal Cyihwsg1456-18-60 11:17:00* Test Item Value Reference Range Interpretation Comments Total Protein (test code = 2885-2) 6.1 6.5-8.1 L [facility] DallasAlbumin2020-02-06 11:17:00* Test Item Value Reference Range Interpretation Comments Albumin (test code = 1751-7) 3.2 3.5-5.0 L [facility] DallasGlobulin2020-02-06 11:17:00* Test Item Value Reference Range Interpretation Comments Globulin (test code = 21807-0) 2.9 2.3-3.5 [facility] DallasAlbumin/Globulin Qyitu8512-18-35 11:17:00 * Test Item Value Reference Range Interpretation Comments Albumin/Globulin Ratio (test code = 1759-0) 1.1 0.8-2.0 [facility] DallasAlkaline Rraebugadsl5703-20-81 11:17:00* Test Item Value Reference Range Interpretation Comments Alkaline Phosphatase (test code = 6768-6) 116 40-150 [facility] eosinophil count as percentage of total uvossorjlb8404-97-43 09:40:00* Test Item Value Reference Range Interpretation Comments Eosinophils % (Manual) (test code = 714-6) 4 0-7 [facility] blood eosinophil count as percentage of total xeieapytdg3906-68-10 09:40:00* Test Item Value Reference Range Interpretation Comments Eosinophils % (Manual) (test code = 714-6) 4 0-7 [facility] Wojfybp8887-88-01 15:08:00* Test Item Value Reference Range Interpretation Comments Bedside Glucose (test code = 17365-7) 333 70-120 H Meter ID: [id number] Glucose 2019-04-20 15:08:00* Test Item Value Reference Range Interpretation Comments Bedside Glucose (test code = 51582-0) 333 70-120 H Meter ID: [id number] [facility] Glucose 2019-04-20 15:08:00* Test Item Value Reference Range Interpretation Comments Bedside Glucose (test code = 68283-2) 333 70-120 H Meter ID: [id number] Plains Memorial HospitalCTA RQZM3671-88-64 14:49:00 [facility] [address] [place] [address] Patient Name: CARLITO ROCK MR #: [id number] : 1940 Age/Sex: 78/M Req #: [id number] [facility] Physician: LEOLA PONCE MD Ordered by: SARA OLIVAS MD Report #: [id number] Location: [place] [address] Room/Bed: 2931 Procedure: [id number]/CTA NECK Exam Date: 04/19/19 Exam Time: 1630 REPORT STATUS: Signed EXAMINATION: CT angiogram of the ambler of Cid and neck with contrast CLINICAL [...] reasonably achievabl e. CT ANGIOGRAM OF THE RED CLIFF OF CID FINDINGS: Atherosclerotic calcifi cation of [...] 1501 COPY TO: SARA OLIVAS MD CTA LHKTD0697-47-15 14:49:00 [place] [address] Patient Name: CARLITO ROCK MR #: [id number] : 1940 Age/Sex: 78/M Req #: [id number] Adm Physician: LEOLA PONCE MD Ordered by: SARA OLIVAS MD Report #: [id number] Location: MED/SURG3 Room/Bed: 293 Procedure: [id number]/CTA BRAIN Exam Date: 04/19/19 Exam Time: 1630 REPORT STATUS: Signed EXAMINATION : CT angiogram of the ambler of Cid and neck with contrast CLINICAL [...] reasonably achievab le. CT ANGIOGRAM OF THE RED CLIFF OF CID FINDINGS: Atherosclerotic calcif ication of [...] COPY TO: SARA OLIVAS MD Vitamin B12 Hcawp4538-40-06 21:46:00* Test Item Value Reference Range Interpretation Comments Vitamin B12 Level (test code = 64188-7) [facility] 213-816 H [facility] DallasVitamin B12 Muvzj2073-91-20 21:46:00* Test Item Value Reference Range Interpretation Comments Vitamin B12 Level (test code = 83384-4) 1037 213-816 H [facility] DallasVitamin B12 Qlwdz8956-95-32 21:46:00* Test Item Value Reference Range Interpretation Comments Vitamin B12 Level (test code = 03377-4) 1036 213-816 H [facility] DallasVitamin B12 Fixsb7106-19-22 21:46:00* Test Item Value Reference Range Interpretation Comments Vitamin B12 Level (test code = 42617-6) 1037 213-816 H [facility] DallasVitamin B12 Ekuac1685-79-02 21:46:00* Test Item Value Reference Range Interpretation Comments Vitamin B12 Level (test code = 56746-0) 1037 213-816 H [facility] DallasTriglycerides Liqwn3371-82-50 21:02:00* Test Item Value Reference Range Interpretation Comments Triglycerides Level (test code = 2571-8) 101 0-149 [facility] DallasCholesterol Lzfrc6610-01-76 21:02:00* Test Item Value Reference Range Interpretation Comments Cholesterol Level (test code = 2093-3) 196 0-199 Less than 200 mg/dL Low Gbmi766 - 239 mg/dL Borderline Xxwg756 m g/dl and greater High Risk [facility] DallasLDL Oanrncngjrb1782-39-92 21:02:00* Test Item Value Reference Range Interpretation Comments LDL Cholesterol (test code = 2089-1) 101 60-130 [facility]HDL Qhoydnwdqdj0297-92-65 21:02:00* Test Item Value Reference Range Interpretation Comments HDL Cholesterol (test code = 2085-9) 75 40-60 H [facility] DallasCholesterol/HDL Nnoiy6185-65-28 21:02:00 * Test Item Value Reference Range Interpretation Comments Cholesterol/HDL Ratio (test code = 9830-1) 2.6 3.9-4.7 L [facility] DallasTriglycerides Wobvh4231-51-36 21:02:00* Test Item Value Reference Range Interpretation Comments Triglycerides Level (test code = 2571-8) 101 0-149 [facility] DallasCholesterol Nhbzq2271-01-59 21:02:00* Test Item Value Reference Range Interpretation Comments Cholesterol Level (test code = 2093-3) 196 0-199 Less than 200 mg/dL Low Axee217 - 239 mg/dL Borderline Bnxi762 m g/dl and greater High Risk [facility] DallasLDL Doxlugymlfk9128-83-61 21:02:00* Test Item Value Reference Range Interpretation Comments LDL Cholesterol (test code = 2089-1) 101 60-130 [facility] Vlnnrieehyq8625-47-37 21:02:00* Test Item Value Reference Range Interpretation Comments HDL Cholesterol (test code = 2085-9) 75 40-60 H [facility] DallasCh[facility]/HDL Vraak9210-20-67 21:02:00 * Test Item Value Reference Range Interpretation Comments Cholesterol/HDL Ratio (test code = 9830-1) 2.6 3.9-4.7 L [facility] DallasTriglycerides Gbpqx8969-32-76 21:02:00* Test Item Value Reference Range Interpretation Comments Triglycerides Level (test code = 2571-8) 101 0-149 [facility] DallasCholesterol Ndawb7780-18-80 21:02:00* Test Item Value Reference Range Interpretation Comments Cholesterol Level (test code = 2093-3) 196 0-199 Less than 200 mg/dL Low Hfjk844 - 239 mg/dL Borderline Ljur996 m g/dl and greater High Risk [facility] DallasLDL Elvqtboezox0660-77-39 21:02:00* Test Item Value Reference Range Interpretation Comments LDL Cholesterol (test code = 2089-1) 101 60-130 [facility] Iwkgutktuak9360-40-20 21:02:00* Test Item Value Reference Range Interpretation Comments HDL Cholesterol (test code = 2085-9) 75 40-60 H [facility] DallasCholesterol/HDL Oasaw9891-39-95 21:02:00 * Test Item Value Reference Range Interpretation Comments Cholesterol/HDL Ratio (test code = 9830-1) 2.6 3.9-4.7 L [facility] DallasTriglycerides Dodis3450-69-09 21:02:00* Test Item Value Reference Range Interpretation Comments Triglycerides Level (test code = 2571-8) 101 0-149 [facility] DallasCholesterol Dbzar5248-67-78 21:02:00* Test Item Value Reference Range Interpretation Comments Cholesterol Level (test code = 2093-3) 196 0-199 Less than 200 mg/dL Low Gbty746 - 239 mg/dL Borderline Lzae262 m g/dl and greater High Risk [facility] DallasLDL Dmkihnsvpdy9236-68-34 21:02:00* Test Item Value Reference Range Interpretation Comments LDL Cholesterol (test code = 2089-1) 101 60-130 [facility] Fndevrigcby3283-88-82 21:02:00* Test Item Value Reference Range Interpretation Comments HDL Cholesterol (test code = 2085-9) 75 40-60 H [facility] DallasCh[facility]/HDL Akaxs7352-41-96 21:02:00 * Test Item Value Reference Range Interpretation Comments Cholesterol/HDL Ratio (test code = 9830-1) 2.6 3.9-4.7 L [facility] DallasTriglycerides Eekua4015-38-53 21:02:00* Test Item Value Reference Range Interpretation Comments Triglycerides Level (test code = 2571-8) 101 0-149 [facility] DallasCholesterol Hbmay6581-25-18 21:02:00* Test Item Value Reference Range Interpretation Comments Cholesterol Level (test code = 2093-3) 196 0-199 Less than 200 mg/dL Low Alnh802 - 239 mg/dL Borderline Eqae772 m g/dl and greater High Risk [facility] DallasLDL Nfpznonpgjx5895-05-97 21:02:00* Test Item Value Reference Range Interpretation Comments LDL Cholesterol (test code = 2089-1) 101 60-130 [facility] DallasHDL Wyfabhfypjh6973-25-46 21:02:00* Test Item Value Reference Range Interpretation Comments HDL Cholesterol (test code = 2085-9) 75 40-60 H [facility] DallasCholesterol/HDL Skjtq5060-52-67 21:02:00 * Test Item Value Reference Range Interpretation Comments Cholesterol/HDL Ratio (test code = 9830-1) 2.6 3.9-4.7 L [facility] DallasMRI BRAIN BH2632-78-45 16:59:00 [facility] [address] [address] Patient Name: CARLITO ROCK MR #: [id number] : 1940 Age/Sex: 78/M Req #: [id number] Adm Physician: LEOLA PONCE MD Ordered by: DEVANTE COLLINS DO Report #: [id number] Location: MED/SURG3 Room/Bed: [facility] Procedure: 0102-00 06 MRI/MRI BRAIN WO Exam [...] TO: DEVANTE COLLINS DO B- Type Natriuretic Ebglyff2279-06-20 16:46:00* Test Item Value Reference Range Interpretation Comments B-Type Natriuretic Peptide (test code = 25870-6) 34.3 0-100 [facility] DallasCreatine Kinase CS1531-24-28 16:46:00* Test Item Value Reference Range Interpretation Comments Creatine Kinase MB (test code = 85116-9) 1.70 0-5.0 [place] 19196020-01-02 16:46:00* Test Item Value Reference Range Interpretation Comments Troponin I (test code = VZG5127) 0.059 0-0.300 [facility] DallasB[facility]Type Nat[facility]tic Rlrftkj1147-39-91 16:46:00* Test Item Value Reference Range Interpretation Comments B-Type Natriuretic Peptide (test code = 40467-6) 34.3 0-100 [facility] DallasCreatine Kinase SK1831-43-11 16:46:00* Test Item Value Reference Range Interpretation Comments Creatine Kinase MB (test code = 12219-0) 1.70 0-5.0 [place] 19196020-01-02 16:46:00* Test Item Value Reference Range Interpretation Comments Troponin I (test code = UVP7758) 0.059 0-0.300 [facility] DallasB[facility]Type Natri[facility]tic Tntiwqk0087-61-22 16:46:00* Test Item Value Reference Range Interpretation Comments B-Type Natriuretic Peptide (test code = 64056-1) 34.3 0-100 [facility] DallasCreatine Kinase YZ1380-49-73 16:46:00* Test Item Value Reference Range Interpretation Comments Creatine Kinase MB (test code = 67864-7) 1.70 0-5.0 [place] 19196020-01-02 16:46:00* Test Item Value Reference Range Interpretation Comments Troponin I (test code = GNJ9313) 0.059 0-0.300 [facility] DallasB[facility]Type Natriuretic Laqrngw4336-31-13 16:46:00* Test Item Value Reference Range Interpretation Comments B-Type Natriuretic Peptide (test code = 69606-7) 34.3 0-100 [facility] DallasCreatine Kinase DD7272-61-48 16:46:00* Test Item Value Reference Range Interpretation Comments Creatine Kinase MB (test code = 49335-5) 1.70 0-5.0 [facility] DallasTroponin Q8424-75-87 16:46:00* Test Item Value Reference Range Interpretation Comments Troponin I (test code = HAD5115) 0.059 0-0.300 [facility] DallasB[facility]Type Natriuretic Ldlpxmz1373-31-39 16:46:00* Test Item Value Reference Range Interpretation Comments B-Type Natriuretic Peptide (test code = 81640-6) 34.3 0-100 [facility] DallasCreatine Kinase KP6583-28-60 16:46:00* Test Item Value Reference Range Interpretation Comments Creatine Kinase MB (test code = 91417-9) 1.70 0-5.0 [facility] S2469-21-56 16:46:00* Test Item Value Reference Range Interpretation Comments Troponin I (test code = KSC6732) 0.059 0-0.[address] [facility] Ympop4406-58-56 15:53:00* Test Item Value Reference Range Interpretation Comments Sodium Level (test code = 2951-2) 139 136-145 [facility] DallasPotassium Nwvrr5244-91-28 15:53:00* Test Item Value Reference Range Interpretation Comments Potassium Level (test code = 2823-3) 3.6 3.5-5.1 [facility] DallasChloride Galtd5613-96-87 15:53:00* Test Item Value Reference Range Interpretation Comments Chloride Level (test code = 2075-0) 102 98-107 [facility] DallasCarbon Dioxide Tpgsc3646-43-96 15:53:00* Test Item Value Reference Range Interpretation Comments Carbon Dioxide Level (test code = 2028-9) 25 22-29 [facility] DallasAnion Zii6884-90-96 15:53:00* Test Item Value Reference Range Interpretation Comments Anion Gap (test code = 17157-2) 15.6 8-16 [facility] DallasBlood Urea Rbgalcrm1929-17-04 15:53:00* Test Item Value Reference Range Interpretation Comments Blood Urea Nitrogen (test code = 3094-0) 9 7-26 [facility] DallasCreatinine2020-01-02 15:53:00* Test Item Value Reference Range Interpretation Comments Creatinine (test code = 2160-0) 0.86 0.72-1.25 [facility] DallasBUN/Creatinine Wvtog4237-70-97 15:53:00* Test Item Value Reference Range Interpretation Comments BUN/Creatinine Ratio (test code = 3097-3) 10 6-25 [facility] DallasEstimat Glomerular Filtration Rate 2019-04-18 15:53:00* Test Item Value Reference Range Interpretation Comments Estimat Glomerular Filtration Rate (test code = 656637317) > 60 >60 Ranges were taken from the National Kidney Disease Education Program and the [facility] Foundation literature.Reference ranges:60 or greater: Mpcdqu23-45 ( for 3 consecutive months): Chronic kidney disease 15 or less: Kidney failureChildren's Medical Center DallasGlucose Mjbom5626-61-96 15:53:00* Test Item Value Reference Range Interpretation Comments Glucose Level (test code = IQM3310) 95 74-118 [facility] DallasCalcium Xtubi2249-09-83 15:53:00* Test Item Value Reference Range Interpretation Comments Calcium Level (test code = 88548-2) 9.6 8.4-10.2 [facility] DallasTotal Iqivnqfhe9476-38-40 15:53:00* Test Item Value Reference Range Interpretation Comments Total Bilirubin (test code = 1975-2) 0.7 0.2-1.2 [facility] DallasAspartate Amino Transf (AST/SGOT) 2019-04-18 15:53:00* Test Item Value Reference Range Interpretation Comments Aspartate Amino Transf (AST/SGOT) (test code = Aspartate Amino Transf (AST/SGOT)) 51 5-34 H [facility] DallasAlanine Aminotransferase (ALT/SGPT) 2019-04-18 15:53:00* Test Item Value Reference Range Interpretation Comments Alanine Aminotransferase (ALT/SGPT) (test code = 1742-6) 51 0-55 [facility] DallasTotal Joedsac3228-40-69 15:53:00* Test Item Value Reference Range Interpretation Comments Total Protein (test code = 2885-2) 6.9 6.5-8.1 [facility] DallasAlbumin2020-01-02 15:53:00* Test Item Value Reference Range Interpretation Comments Albumin (test code = 1751-7) 3.5 3.5-5.0 [facility] DallasGlobulin2020-01-02 15:53:00* Test Item Value Reference Range Interpretation Comments Globulin (test code = 39359-2) 3.4 2.3-3.5 [facility] DallasAlbumin/Globulin Mpmvp7539-76-63 15:53:00 * Test Item Value Reference Range Interpretation Comments Albumin/Globulin Ratio (test code = 1759-0) 1.0 0.8-2.0 [facility] DallasAlkaline Dvcnrgsosen2194-79-36 15:53:00* Test Item Value Reference Range Interpretation Comments Alkaline Phosphatase (test code = 6768-6) 117 40-150 [facility] DallasCreatine Qhwevg5551-22-18 15:53:00* Test Item Value Reference Range Interpretation Comments Creatine Kinase (test code = 2157-6) 50 30-[address] [facility]odium Snjec8625-82-63 15:53:00* Test Item Value Reference Range Interpretation Comments Sodium Level (test code = 2951-2) 139 136-145 [facility] DallasPotassium Bdpjn1315-64-29 15:53:00* Test Item Value Reference Range Interpretation Comments Potassium Level (test code = 2823-3) 3.6 3.5-5.1 [facility] DallasChloride Swijm5596-49-23 15:53:00* Test Item Value Reference Range Interpretation Comments Chloride Level (test code = 2075-0) 102 98-107 [facility] DallasCarbon Dioxide Naous3318-69-51 15:53:00* Test Item Value Reference Range Interpretation Comments Carbon Dioxide Level (test code = 2028-9) 25 22-29 [facility] DallasAnion Gqu3328-58-40 15:53:00* Test Item Value Reference Range Interpretation Comments Anion Gap (test code = 34535-6) 15.6 8-16 [facility] DallasBlood Urea Aljhojor2175-86-31 15:53:00* Test Item Value Reference Range Interpretation Comments Blood Urea Nitrogen (test code = 3094-0) 9 7-26 [facility] DallasCreatinine2020-01-02 15:53:00* Test Item Value Reference Range Interpretation Comments Creatinine (test code = 2160-0) 0.86 0.72-1.25 [facility] DallasBUN/Creatinine Jfwbl4937-40-44 15:53:00* Test Item Value Reference Range Interpretation Comments BUN/Creatinine Ratio (test code = 3097-3) 10 6-25 [facility] DallasEstimat Glomerular Filtration Rate 2019-04-18 15:53:00* Test Item Value Reference Range Interpretation Comments Estimat Glomerular Filtration Rate (test code = 822364314) > 60 >60 Ranges were taken from the National Kidney Disease Education Program and the [facility] literature.Reference ranges:60 or greater: Pkcrid97-85 ( for 3 consecutive months): Chronic kidney disease 15 or less: Kidney failureChildren's Medical Center DallasGlucose Ppqdx2190-32-96 15:53:00* Test Item Value Reference Range Interpretation Comments Glucose Level (test code = CNO9694) 95 74-118 [facility] DallasCalcium Jdctd4146-26-07 15:53:00* Test Item Value Reference Range Interpretation Comments Calcium Level (test code = 33492-6) 9.6 8.4-10.2 [facility] DallasTotal Dxkgkmwvp4940-13-97 15:53:00* Test Item Value Reference Range Interpretation Comments Total Bilirubin (test code = 1975-2) 0.7 0.2-1.2 [facility] DallasAspartate Amino Transf (AST/SGOT) 2019-04-18 15:53:00* Test Item Value Reference Range Interpretation Comments Aspartate Amino Transf (AST/SGOT) (test code = Aspartate Amino Transf (AST/SGOT)) 51 5-34 H [facility] DallasAlanine Aminotransferase (ALT/SGPT) 2019-04-18 15:53:00* Test Item Value Reference Range Interpretation Comments Alanine Aminotransferase (ALT/SGPT) (test code = 1742-6) 51 0-55 [facility] DallasTotal Tooupkx6827-51-16 15:53:00* Test Item Value Reference Range Interpretation Comments Total Protein (test code = 2885-2) 6.9 6.5-8.1 [facility] DallasAlbumin2020-01-02 15:53:00* Test Item Value Reference Range Interpretation Comments Albumin (test code = 1751-7) 3.5 3.5-5.0 [facility] DallasGlobulin2020-01-02 15:53:00* Test Item Value Reference Range Interpretation Comments Globulin (test code = 64828-3) 3.4 2.3-3.5 [facility] DallasAlbumin/Globulin Ymplj4360-31-43 15:53:00 * Test Item Value Reference Range Interpretation Comments Albumin/Globulin Ratio (test code = 1759-0) 1.0 0.8-2.0 [facility] DallasAlkaline Ewlnukxtajl2647-46-59 15:53:00* Test Item Value Reference Range Interpretation Comments Alkaline Phosphatase (test code = 6768-6) 117 40-150 [facility] DallasCreatine Wrhzau1455-21-73 15:53:00* Test Item Value Reference Range Interpretation Comments Creatine Kinase (test code = 2157-6) 50 30-200 [facility] DallasCreatine Slrrbi9525-33-64 15:53:00* Test Item Value Reference Range Interpretation Comments Creatine Kinase (test code = 2157-6) 50 30-200 [facility] DallasCreatine Ttnxyy0890-32-76 15:53:00* Test Item Value Reference Range Interpretation Comments Creatine Kinase (test code = 2157-6) 50 30-200 [facility] DallasCreatine Brcwmt6932-16-24 15:53:00* Test Item Value Reference Range Interpretation Comments Creatine Kinase (test code = 2157-6) 50 30-200 [facility] SINGLE (PORTABLE)2019-04-18 15:51:00 [facility] [address] [address] Patient Name: CARLITO ROCK MR #: [id number] : 1940 Age/Sex: 78/M Req #: [id number] Adm Physician: LEOLA PONCE MD Ordered by: LUCIA SMYTH ARMATURE WINDER Report #: [id number] Location: [facility] Room/Bed: [address] [address] Procedure: 0102-004 2 DX/CHEST SINGLE (PORTABLE) Exam [...] VEGA on 04/18/191551 COPY TO: LUCIA SMYTH ARMATURE WINDER Activated Partial Thromboplast Oavb0003-73-76 15:43:00* Test Item Value Reference Range Interpretation Comments Activated Partial Thromboplast Time (test code = 83820-2) 32.9 23.8-35.5 [facility] DallasActivated Partial Thromboplast Time 2019-04-18 15:43:00* Test Item Value Reference Range Interpretation Comments Activated Partial Thromboplast Time (test code = 10763-8) 32.9 23.8-35.5 [facility] DallasProthrombin Nyaa0400-97-12 15:41:00* Test Item Value Reference Range Interpretation Comments Prothrombin Time (test code = 5902-2) 12.9 11.9-14.5 [facility] DallasProthromb Time International Ratio 2019-04-18 15:41:00* Test Item Value Reference Range Interpretation Comments Prothromb Time International Ratio (test code = 6301-6) 0.92 Oral Anticoagulant Therapy INR Values:1. Low Intensity Therapy 1.5 - 2.02 . Moderate Intensity Therapy 2.0 - 3.03. High Intensity Therapy(1) 2.5 - 3. 54. High Intensity Therapy(2) 3.0 - 4.05. Panic Value INR > 5.0 [facility] DallasProthrombin Idke2455-75-54 15:41:00* Test Item Value Reference Range Interpretation Comments Prothrombin Time (test code = 5902-2) 12.9 11.9-14.5 [facility] DallasProthromb Time International Ratio 2019-04-18 15:41:00* Test Item Value Reference Range Interpretation Comments Prothromb Time International Ratio (test code = 6301-6) 0.92 Oral Anticoagulant Therapy INR Values:1. Low Intensity Therapy 1.5 - 2.02 . Moderate Intensity Therapy 2.0 - 3.03. High Intensity Therapy(1) 2.5 - 3. 54. High Intensity Therapy(2) 3.0 - 4.05. Panic Value INR > 5.0 [facility] DallasWhite Blood Mpvzh0983-54-21 15:36:00* Test Item Value Reference Range Interpretation Comments White Blood Count (test code = 6690-2) 7.03 4.8-10.8 [facility] DallasRed Blood Djnbm1862-49-17 15:36:00* Test Item Value Reference Range Interpretation Comments Red Blood Count (test code = 789-8) 3.90 4.3-5.7 L [facility] DallasHemoglobin2020-01-02 15:36:00* Test Item Value Reference Range Interpretation Comments Hemoglobin (test code = 72499-3) 12.0 14.0-18.0 L [facility] DallasHematocrit2020-01-02 15:36:00* Test Item Value Reference Range Interpretation Comments Hematocrit (test code = 4544-3) 36.6 38.2-49.6 L [facility] DallasMean Corpuscular Kibfmj9480-46-86 15:36:00* Test Item Value Reference Range Interpretation Comments Mean Corpuscular Volume (test code = 787-2) 93.8 81-99 [facility] DallasMean Corpuscular Vgwdorztfx3711-39-51 15:36:00* Test Item Value Reference Range Interpretation Comments Mean Corpuscular Hemoglobin (test code = 785-6) 30.8 28-32 [facility] DallasMean Corpuscular Hemoglobin Concent 2019-04-18 15:36:00* Test Item Value Reference Range Interpretation Comments Mean Corpuscular Hemoglobin Concent (test code = 786-4) 32.8 31-35 [facility] DallasRed Cell Distribution Ghzdb2067-63-05 15:36:00* Test Item Value Reference Range Interpretation Comments Red Cell Distribution Width (test code = 05689-6) 13.8 11.7 -14.4 [facility] DallasPlatelet Mxaqz1137-76-61 15:36:00* Test Item Value Reference Range Interpretation Comments Platelet Count (test code = 777-3) 145 140-360 [facility] DallasNeutrophils (%) (Auto)2019-04-18 15:36:00 * Test Item Value Reference Range Interpretation Comments Neutrophils (%) (Auto) (test code = 10062-6) 39.0 38.7-80.0 [facility] DallasLymphocytes (%) (Auto)2019-04-18 15:36:00 * Test Item Value Reference Range Interpretation Comments Lymphocytes (%) (Auto) (test code = 736-9) 47.5 18.0-39.1 H [facility] DallasMonocytes (%) (Auto)2019-04-18 15:36:00* Test Item Value Reference Range Interpretation Comments Monocytes (%) (Auto) (test code = 5905-5) 7.8 4.4-11.3 [facility] DallasEosinophils (%) (Auto)2019-04-18 15:36:00 * Test Item Value Reference Range Interpretation Comments Eosinophils (%) (Auto) (test code = 713-8) 4.7 0.0-6.0 [facility] DallasBasophils (%) (Auto)2019-04-18 15:36:00* Test Item Value Reference Range Interpretation Comments Basophils (%) (Auto) (test code = 706-2) 0.9 0.0-1.0 [facility] DallasIM GRANULOCYTES %2019-04-18 15:36:00* Test Item Value Reference Range Interpretation Comments IM GRANULOCYTES % (test code = IM GRANULOCYTES %) 0.1 0.0- 1.0 [facility] DallasNeutrophils # (Auto)2019-04-18 15:36:00* Test Item Value Reference Range Interpretation Comments Neutrophils # (Auto) (test code = 751-8) 2.7 2.1-6.9 [facility] DallasLymphocytes # (Auto)2019-04-18 15:36:00* Test Item Value Reference Range Interpretation Comments Lymphocytes # (Auto) (test code = 32261-2) 3.3 1.0-3.2 H [facility] DallasMonocytes # (Auto)2019-04-18 15:36:00* Test Item Value Reference Range Interpretation Comments Monocytes # (Auto) (test code = 742-7) 0.6 0.2-0.8 [facility] DallasEosinophils # (Auto)2019-04-18 15:36:00* Test Item Value Reference Range Interpretation Comments Eosinophils # (Auto) (test code = 711-2) 0.3 0.0-0.4 [facility] DallasBasophils # (Auto)2019-04-18 15:36:00* Test Item Value Reference Range Interpretation Comments Basophils # (Auto) (test code = 704-7) 0.1 0.0-0.1 [facility] DallasAbsolute Immature Granulocyte (auto 2019-04-18 15:36:00* Test Item Value Reference Range Interpretation Comments Absolute Immature Granulocyte (auto (anurag t code = Absolute Immature Granulocyte (auto) 0.01 0-0.1 [facility] DallasWhite Blood Gtjsb1878-98-24 15:36:00* Test Item Value Reference Range Interpretation Comments White Blood Count (test code = 6690-2) 7.03 4.8-10.8 [facility] DallasRed Blood Ditjf5638-74-19 15:36:00* Test Item Value Reference Range Interpretation Comments Red Blood Count (test code = 789-8) 3.90 4.3-5.7 L [facility] DallasHemoglobin2020-01-02 15:36:00* Test Item Value Reference Range Interpretation Comments Hemoglobin (test code = 19015-3) 12.0 14.0-18.0 L [facility] DallasHematocrit2020-01-02 15:36:00* Test Item Value Reference Range Interpretation Comments Hematocrit (test code = 4544-3) 36.6 38.2-49.6 L [facility] DallasMean Corpuscular Ucrudk2854-79-54 15:36:00* Test Item Value Reference Range Interpretation Comments Mean Corpuscular Volume (test code = 787-2) 93.8 81-99 [facility] DallasMean Corpuscular Nxrodeikoc9434-64-94 15:36:00* Test Item Value Reference Range Interpretation Comments Mean Corpuscular Hemoglobin (test code = 785-6) 30.8 28-32 [facility] DallasMean Corpuscular Hemoglobin Concent 2019-04-18 15:36:00* Test Item Value Reference Range Interpretation Comments Mean Corpuscular Hemoglobin Concent (test code = 786-4) 32.8 31-35 [facility] DallasRed Cell Distribution Gnuwc4543-35-49 15:36:00* Test Item Value Reference Range Interpretation Comments Red Cell Distribution Width (test code = 01857-2) 13.8 11.7 -14.4 [facility] DallasPlatelet Wqphf3226-36-11 15:36:00* Test Item Value Reference Range Interpretation Comments Platelet Count (test code = 777-3) 145 140-360 [facility] DallasNeutrophils (%) (Auto)2019-04-18 15:36:00 * Test Item Value Reference Range Interpretation Comments Neutrophils (%) (Auto) (test code = 69807-3) 39.0 38.7-80.0 [facility] DallasLymphocytes (%) (Auto)2019-04-18 15:36:00 * Test Item Value Reference Range Interpretation Comments Lymphocytes (%) (Auto) (test code = 736-9) 47.5 18.0-39.1 H [facility] DallasMonocytes (%) (Auto)2019-04-18 15:36:00* Test Item Value Reference Range Interpretation Comments Monocytes (%) (Auto) (test code = 5905-5) 7.8 4.4-11.3 [facility] DallasEosinophils (%) (Auto)2019-04-18 15:36:00 * Test Item Value Reference Range Interpretation Comments Eosinophils (%) (Auto) (test code = 713-8) 4.7 0.0-6.0 [facility] DallasBasophils (%) (Auto)2019-04-18 15:36:00* Test Item Value Reference Range Interpretation Comments Basophils (%) (Auto) (test code = 706-2) 0.9 0.0-1.0 [facility]IM [facility]ULOC[facility] %2019-04-18 15:36:00* Test Item Value Reference Range Interpretation Comments IM GRANULOCYTES % (test code = IM GRANULOCYTES %) 0.1 0.0- 1.0 [facility] DallasNeutrophils # (Auto)2019-04-18 15:36:00* Test Item Value Reference Range Interpretation Comments Neutrophils # (Auto) (test code = 751-8) 2.7 2.1-6.9 [facility] DallasLymphocytes # (Auto)2019-04-18 15:36:00* Test Item Value Reference Range Interpretation Comments Lymphocytes # (Auto) (test code = 67210-7) 3.3 1.0-3.2 H [facility] DallasMonocytes # (Auto)2019-04-18 15:36:00* Test Item Value Reference Range Interpretation Comments Monocytes # (Auto) (test code = 742-7) 0.6 0.2-0.8 [facility] DallasEosinophils # (Auto)2019-04-18 15:36:00* Test Item Value Reference Range Interpretation Comments Eosinophils # (Auto) (test code = 711-2) 0.3 0.0-0.4 [facility] DallasBasophils # (Auto)2019-04-18 15:36:00* Test Item Value Reference Range Interpretation Comments Basophils # (Auto) (test code = 704-7) 0.1 0.0-0.1 [facility] DallasAbsolute Immature Granulocyte (auto 2019-04-18 15:36:00* Test Item Value Reference Range Interpretation Comments Absolute Immature Granulocyte (auto (anurag t code = Absolute Immature Granulocyte (auto) 0.01 0-0.1 [facility] DallasCT BRAIN ST3552-29-25 14:35:00 [facility] [address] [place] [address] Patient Name: CARLITO ROCK MR #: [id number] : 1940 Age/Sex: 78/M Req #: [id number] Adm Physician: Ordered by: LUCIA SMYTH NP Report #: [id number] Location: ER Room/Bed: Procedure: [id number] CT/CT BRAIN WO Exam Date: Exam Time: [...] 2:54 PM Dictated By: MELIZA OLIVO MD 2608 Transcrib ed By: FISH on 04/18/19 3556 COPY TO: LUCIA SMYTH NP Serum or plasma triglyceride measurement (mass/volume)2019-04-18 13:42:00* Test Item Value Reference Range Interpretation Comments Triglycerides Level (test code = 2571-8) 101 0-[address] [facility] or plasma cholesterol measurement (mass/volume)2019-04-18 13:42:00* Test Item Value Reference Range Interpretation Comments Cholesterol Level (test code = 2093-3) 196 0-199 Less than 200 mg/dL Low Oozm228 - 239 mg/dL Borderline Avab174 m g/dl and greater High Risk [facility] plasma cholesterol in LDL measurement (mass/volume) 2019-04-18 13:42:00* Test Item Value Reference Range Interpretation Comments LDL Cholesterol (test code = 2089-1) 101 60-[address] [facility] [facility] or plasma cholesterol in HDL measurement (mass/volume)2019-04-18 13:42:00* Test Item Value Reference Range Interpretation Comments HDL Cholesterol (test code = 2085-9) 75 40-[address] [facility]um or plasma total cholesterol/cholesterol in HDL mass hmhkt8967-55-21 13:42:00* Test Item Value Reference Range Interpretation Comments Cholesterol/HDL Ratio (test code = 9830-1) 2.6 3.9-4.7 [facility] DallasBNP Daq-xOxp0420-14-02 13:42:00* Test Item Value Reference Range Interpretation Comments B-Type Natriuretic Peptide (test code = 00010-2) 34.3 0-[address] [facility]erum or plasma creatine kinase measurement (enzymatic activity/volume)2019-04-18 13:42:00* Test Item Value Reference Range Interpretation Comments Creatine Kinase (test code = 2157-6) 50 30-[address] [facility] Hospitalerum or plasma creatine kinase MB measurement (mass/volume)2019-04-18 13:42:00* Test Item Value Reference Range Interpretation Comments Creatine Kinase MB (test code = 35340-8) 1.70 0-5.0 [facility] DallasTroponin I measurement by highly sensitive enzyme wygpixbvhdk2936-50-99 13:42:00* Test Item Value Reference Range Interpretation Comments Troponin I (test code = 78437-8) 0.059 0-0.300 [facility] DallasBlood cobalamin (vitamin B12) measurement (mass/volume)2019-04-18 13:42:00* Test Item Value Reference Range Interpretation Comments Vitamin B12 Level (test code = 95463-5) 1037 213-[address] [facility] [facility] or plasma triglyceride measurement (mass/volume)2019-04-18 13:42:00* Test Item Value Reference Range Interpretation Comments Triglycerides Level (test code = 2571-8) 101 0-[address] [facility] or plasma cholesterol measurement (mass/volume)2019-04-18 13:42:00* Test Item Value Reference Range Interpretation Comments Cholesterol Level (test code = 2093-3) 196 0-199 Less than 200 mg/dL Low Oear483 - 239 mg/dL Borderline Gqpx216 m g/dl and greater High [facility] or plasma cholesterol in LDL measurement (mass/volume) 2019-04-18 13:42:00* Test Item Value Reference Range Interpretation Comments LDL Cholesterol (test code = 2089-1) 101 60-[address] [facility] or plasma cholesterol in HDL measurement (mass/volume)2019-04-18 13:42:00* Test Item Value Reference Range Interpretation Comments HDL Cholesterol (test code = 2085-9) 75 40-[address] [facility]um or plasma total cholesterol/cholesterol in HDL mass ckfjx0321-56-76 13:42:00* Test Item Value Reference Range Interpretation Comments Cholesterol/HDL Ratio (test code = 9830-1) 2.6 3.9-4.7 [facility] DallasBNP Gwq-gGol6974-51-02 13:42:00* Test Item Value Reference Range Interpretation Comments B-Type Natriuretic Peptide (test code = 15302-0) 34.3 0-[address] [facility]erum or plasma creatine kinase measurement (enzymatic activity/volume)2019-04-18 13:42:00* Test Item Value Reference Range Interpretation Comments Creatine Kinase (test code = 2157-6) 50 30-[address] [facility]erum or plasma creatine kinase MB measurement (mass/volume)2019-04-18 13:42:00* Test Item Value Reference Range Interpretation Comments Creatine Kinase MB (test code = 77595-7) 1.70 0-5.0 [facility] DallasTroponin I measurement by highly sensitive enzyme xmhpemrfxcx0403-91-24 13:42:00* Test Item Value Reference Range Interpretation Comments Troponin I (test code = 82663-6) 0.059 0-0.300 [facility] cobalamin (vitamin B12) measurement (mass/volume)2019-04-18 13:42:00* Test Item Value Reference Range Interpretation Comments Vitamin B12 Level (test code = 80247-3) 1037 213816 [facility] Djgxloc2188-33-76 10:24:00* Test Item Value Reference Range Interpretation Comments Blood Culture (test code = 11652596) NO GROWTH AFTER 5 DAYS, FINAL REPORT [facility] Shetlrl9147-21-98 10:24:00* Test Item Value Reference Range Interpretation Comments Blood Culture (test code = 68934975) NO GROWTH AFTER 5 DAYS, FINAL REPORT [facility] Whgdfpy0154-34-21 10:24:00* Test Item Value Reference Range Interpretation Comments Blood Culture (test code = 97941868) NO GROWTH AFTER 5 DAYS, FINAL REPORT [facility] Qyfajcc8700-64-36 10:24:00* Test Item Value Reference Range Interpretation Comments Blood Culture (test code = 41974603) NO GROWTH AFTER 5 DAYS, FINAL REPORT [facility] Ccqnnpj7476-31-56 10:24:00* Test Item Value Reference Range Interpretation Comments Blood Culture (test code = 22054946) NO GROWTH AFTER 5 DAYS, FINAL REPORT [facility] Oskwsyi1698-79-69 10:24:00* Test Item Value Reference Range Interpretation Comments Blood Culture (test code = 03452231) NO GROWTH AFTER 5 DAYS, FINAL REPORT [facility] DallasDifferential Total Cells Counted 2018-12-22 08:43:00* Test Item Value Reference Range Interpretation Comments Differential Total Cells Counted (test code = Differen tial Total Cells Counted) 100 [facility] DallasNeutrophils % (Manual)2018-12-22 08:43:00 * Test Item Value Reference Range Interpretation Comments Neutrophils % (Manual) (test code = 14695-8) 12 40-74 L [facility] DallasLymphocytes % (Manual)2018-12-22 08:43:00 * Test Item Value Reference Range Interpretation Comments Lymphocytes % (Manual) (test code = 737-7) 28 19-48 [facility] CenterMonocytes % (Manual)2018-12-22 08:43:00* Test Item Value Reference Range Interpretation Comments Monocytes % (Manual) (test code = 744-3) 4 3.4-9.0 [facility] DallasEosinophils % (Manual)2018-12-22 08:43:00 * Test Item Value Reference Range Interpretation Comments Eosinophils % (Manual) (test code = 714-6) 56 0-7 H [facility] DallasPlatelet Yojwqdos9668-48-87 08:43:00* Test Item Value Reference Range Interpretation Comments Platelet Estimate (test code = 93215-8) MODERATELY DECREASED [facility] DallasPlatelet Morphology Ftzwooj3781-80-83 08:43:00* Test Item Value Reference Range Interpretation Comments Platelet Morphology Comment (test code = 62734-5) FEW GIANT [facility] DallasRed Cell Morphology Aoqisus0043-57-06 08:43:00* Test Item Value Reference Range Interpretation Comments Red Cell Morphology Comment (test code = 6742-1) NORMAL [facility] DallasDifferential Total Cells Counted 2018-12-22 08:43:00* Test Item Value Reference Range Interpretation Comments Differential Total Cells Counted (test code = Differbipin tial Total Cells Counted) 100 [facility] DallasNeutrophils % (Manual)2018-12-22 08:43:00 * Test Item Value Reference Range Interpretation Comments Neutrophils % (Manual) (test code = 56509-7) 12 40-74 L [facility] DallasLymphocytes % (Manual)2018-12-22 08:43:00 * Test Item Value Reference Range Interpretation Comments Lymphocytes % (Manual) (test code = 737-7) 28 19-48 [facility] CenterMonocytes % (Manual)2018-12-22 08:43:00* Test Item Value Reference Range Interpretation Comments Monocytes % (Manual) (test code = 744-3) 4 3.4-9.0 [facility] DallasEosinophils % (Manual)2018-12-22 08:43:00 * Test Item Value Reference Range Interpretation Comments Eosinophils % (Manual) (test code = 714-6) 56 0-7 H [facility] DallasPlatelet Fnhfqxza6258-48-19 08:43:00* Test Item Value Reference Range Interpretation Comments Platelet Estimate (test code = 17717-5) MODERATELY DECREASED [facility] DallasPlatelet Morphology Grbuwyr6704-64-71 08:43:00* Test Item Value Reference Range Interpretation Comments Platelet Morphology Comment (test code = 22521-6) FEW GIANT [facility] DallasRed Cell Morphology Kejrdeb4705-05-35 08:43:00* Test Item Value Reference Range Interpretation Comments Red Cell Morphology Comment (test code = 6742-1) NORMAL [facility] DallasDifferential Total Cells Counted 2018-12-22 08:43:00* Test Item Value Reference Range Interpretation Comments Differential Total Cells Counted (test code = Differbipin tial Total Cells Counted) 100 [facility] DallasNeutrophils % (Manual)2018-12-22 08:43:00 * Test Item Value Reference Range Interpretation Comments Neutrophils % (Manual) (test code = 61574-1) 12 40-74 L [facility] DallasLymphocytes % (Manual)2018-12-22 08:43:00 * Test Item Value Reference Range Interpretation Comments Lymphocytes % (Manual) (test code = 737-7) 28 19-48 [facility] DallasMonocytes % (Manual)2018-12-22 08:43:00* Test Item Value Reference Range Interpretation Comments Monocytes % (Manual) (test code = 744-3) 4 3.4-9.0 [facility] DallasEosinophils % (Manual)2018-12-22 08:43:00 * Test Item Value Reference Range Interpretation Comments Eosinophils % (Manual) (test code = 714-6) 56 0-7 H [facility] DallasPlatelet Upqomlvl4877-17-95 08:43:00* Test Item Value Reference Range Interpretation Comments Platelet Estimate (test code = 36179-7) MODERATELY DECREASED [facility] DallasPlatelet Morphology Yzubqju8043-61-64 08:43:00* Test Item Value Reference Range Interpretation Comments Platelet Morphology Comment (test code = 89809-5) FEW GIANT [facility] DallasRed Cell Morphology Lihkzjj0320-83-05 08:43:00* Test Item Value Reference Range Interpretation Comments Red Cell Morphology Comment (test code = 6742-1) NORMAL [facility] DallasDifferential Total Cells Counted 2018-12-22 08:43:00* Test Item Value Reference Range Interpretation Comments Differential Total Cells Counted (test code = Differbipin tial Total Cells Counted) 100 [facility] DallasNeutrophils % (Manual)2018-12-22 08:43:00 * Test Item Value Reference Range Interpretation Comments Neutrophils % (Manual) (test code = 51422-3) 12 40-74 L [facility] DallasLymphocytes % (Manual)2018-12-22 08:43:00 * Test Item Value Reference Range Interpretation Comments Lymphocytes % (Manual) (test code = 737-7) 28 19-48 [facility] DallasMonocytes % (Manual)2018-12-22 08:43:00* Test Item Value Reference Range Interpretation Comments Monocytes % (Manual) (test code = 744-3) 4 3.4-9.0 [facility] DallasEosinophils % (Manual)2018-12-22 08:43:00 * Test Item Value Reference Range Interpretation Comments Eosinophils % (Manual) (test code = 714-6) 56 0-7 H [facility] DallasPlatelet Xfhmesca0892-68-68 08:43:00* Test Item Value Reference Range Interpretation Comments Platelet Estimate (test code = 12254-0) MODERATELY DECREASED [facility] DallasPlatelet Morphology Whdcoqa8272-49-85 08:43:00* Test Item Value Reference Range Interpretation Comments Platelet Morphology Comment (test code = 61701-3) FEW GIANT [facility] DallasRed Cell Morphology Qwumhlw5713-00-83 08:43:00* Test Item Value Reference Range Interpretation Comments Red Cell Morphology Comment (test code = 6742-1) NORMAL [facility] DallasPlatelet Qhqjnkzs8499-86-96 08:43:00* Test Item Value Reference Range Interpretation Comments Platelet Estimate (test code = 44442-1) MODERATELY DECREASED [facility] DallasPlatelet Morphology Fttlqlm5801-46-82 08:43:00* Test Item Value Reference Range Interpretation Comments Platelet Morphology Comment (test code = 36511-7) FEW GIANT [facility] DallasRed Cell Morphology Renihiy3685-71-47 08:43:00* Test Item Value Reference Range Interpretation Comments Red Cell Morphology Comment (test code = 6742-1) NORMAL [facility] DallasWhite Blood Aaonu7746-02-18 06:18:00* Test Item Value Reference Range Interpretation Comments White Blood Count (test code = 6690-2) 11.36 4.8-10.8 H [facility] DallasRed Blood Rmkuo0832-56-69 06:18:00* Test Item Value Reference Range Interpretation Comments Red Blood Count (test code = 789-8) 3.67 4.3-5.7 L [facility] DallasHemoglobin2019-09-07 06:18:00* Test Item Value Reference Range Interpretation Comments Hemoglobin (test code = 53744-6) 8.8 14.0-18.0 L [facility] DallasHematocrit2019-09-07 06:18:00* Test Item Value Reference Range Interpretation Comments Hematocrit (test code = 4544-3) 28.9 38.2-49.6 L [facility] DallasMean Corpuscular Aqxzqm9506-35-23 06:18:00* Test Item Value Reference Range Interpretation Comments Mean Corpuscular Volume (test code = 787-2) 78.7 81-99 L [facility] DallasMean Corpuscular Ozdjytnuqm6869-92-02 06:18:00* Test Item Value Reference Range Interpretation Comments Mean Corpuscular Hemoglobin (test code = 785-6) 24.0 28-32 L [facility] DallasMean Corpuscular Hemoglobin Concent 2018-12-22 06:18:00* Test Item Value Reference Range Interpretation Comments Mean Corpuscular Hemoglobin Concent (test code = 786-4) 30.4 31-35 L [facility] DallasRed Cell Distribution Mvdtx6473-34-63 06:18:00* Test Item Value Reference Range Interpretation Comments Red Cell Distribution Width (test code = 26015-0) 25.1 11.7 -14.4 H [facility] DallasPlatelet Rhuyu0958-13-04 06:18:00* Test Item Value Reference Range Interpretation Comments Platelet Count (test code = 777-3) 142 140-360 [facility] DallasNeutrophils (%) (Auto)2018-12-22 06:18:00 * Test Item Value Reference Range Interpretation Comments Neutrophils (%) (Auto) (test code = 84387-0) 11.3 38.7-80.0 L [facility] DallasLymphocytes (%) (Auto)2018-12-22 06:18:00 * Test Item Value Reference Range Interpretation Comments Lymphocytes (%) (Auto) (test code = 736-9) 27.0 18.0-39.1 [facility] DallasMonocytes (%) (Auto)2018-12-22 06:18:00* Test Item Value Reference Range Interpretation Comments Monocytes (%) (Auto) (test code = 5905-5) 4.2 4.4-11.3 L [facility] DallasEosinophils (%) (Auto)2018-12-22 06:18:00 * Test Item Value Reference Range Interpretation Comments Eosinophils (%) (Auto) (test code = 713-8) 57.0 0.0-6.0 H [facility] DallasBasophils (%) (Auto)2018-12-22 06:18:00* Test Item Value Reference Range Interpretation Comments Basophils (%) (Auto) (test code = 706-2) 0.4 0.0-1.0 [facility] DallasIM GRANULOCYTES %2018-12-22 06:18:00* Test Item Value Reference Range Interpretation Comments IM GRANULOCYTES % (test code = IM GRANULOCYTES %) 0.1 0.0- 1.0 [facility] DallasNeutrophils # (Auto)2018-12-22 06:18:00* Test Item Value Reference Range Interpretation Comments Neutrophils # (Auto) (test code = 751-8) 1.3 2.1-6.9 L [facility] DallasLymphocytes # (Auto)2018-12-22 06:18:00* Test Item Value Reference Range Interpretation Comments Lymphocytes # (Auto) (test code = 75138-2) 3.1 1.0-3.2 [facility] DallasMonocytes # (Auto)2018-12-22 06:18:00* Test Item Value Reference Range Interpretation Comments Monocytes # (Auto) (test code = 742-7) 0.5 0.2-0.8 [facility] DallasEosinophils # (Auto)2018-12-22 06:18:00* Test Item Value Reference Range Interpretation Comments Eosinophils # (Auto) (test code = 711-2) 6.5 0.0-0.4 H [facility] DallasBasophils # (Auto)2018-12-22 06:18:00* Test Item Value Reference Range Interpretation Comments Basophils # (Auto) (test code = 704-7) 0.1 0.0-0.1 [facility] DallasAbsolute Immature Granulocyte (auto 2018-12-22 06:18:00* Test Item Value Reference Range Interpretation Comments Absolute Immature Granulocyte (auto (anurag t code = Absolute Immature Granulocyte (auto) 0.01 0-0.1 [facility] DallasWhite Blood Qahsg7498-73-25 06:18:00* Test Item Value Reference Range Interpretation Comments White Blood Count (test code = 6690-2) 11.36 4.8-10.8 H [facility] DallasRed Blood Tdkgk0807-22-55 06:18:00* Test Item Value Reference Range Interpretation Comments Red Blood Count (test code = 789-8) 3.67 4.3-5.7 L [facility] DallasHemoglobin2019-09-07 06:18:00* Test Item Value Reference Range Interpretation Comments Hemoglobin (test code = 53371-6) 8.8 14.0-18.0 L [facility] DallasHematocrit2019-09-07 06:18:00* Test Item Value Reference Range Interpretation Comments Hematocrit (test code = 4544-3) 28.9 38.2-49.6 L [facility] DallasMean Corpuscular Oavaoy3543-11-51 06:18:00* Test Item Value Reference Range Interpretation Comments Mean Corpuscular Volume (test code = 787-2) 78.7 81-99 L [facility] DallasMean Corpuscular Utvqsshgmy5326-49-69 06:18:00* Test Item Value Reference Range Interpretation Comments Mean Corpuscular Hemoglobin (test code = 785-6) 24.0 28-32 L [facility] DallasMean Corpuscular Hemoglobin Concent 2018-12-22 06:18:00* Test Item Value Reference Range Interpretation Comments Mean Corpuscular Hemoglobin Concent (test code = 786-4) 30.4 31-35 L [facility] DallasRed Cell Distribution Piahc1880-09-12 06:18:00* Test Item Value Reference Range Interpretation Comments Red Cell Distribution Width (test code = 37958-3) 25.1 11.7 -14.4 H [facility] DallasPlatelet Mpfrw0209-07-73 06:18:00* Test Item Value Reference Range Interpretation Comments Platelet Count (test code = 777-3) 142 140-360 [facility] DallasNeutrophils (%) (Auto)2018-12-22 06:18:00 * Test Item Value Reference Range Interpretation Comments Neutrophils (%) (Auto) (test code = 79504-8) 11.3 38.7-80.0 L [facility] DallasLymphocytes (%) (Auto)2018-12-22 06:18:00 * Test Item Value Reference Range Interpretation Comments Lymphocytes (%) (Auto) (test code = 736-9) 27.0 18.0-39.1 [facility] DallasMonocytes (%) (Auto)2018-12-22 06:18:00* Test Item Value Reference Range Interpretation Comments Monocytes (%) (Auto) (test code = 5905-5) 4.2 4.4-11.3 L [facility] DallasEosinophils (%) (Auto)2018-12-22 06:18:00 * Test Item Value Reference Range Interpretation Comments Eosinophils (%) (Auto) (test code = 713-8) 57.0 0.0-6.0 H [facility] DallasBasophils (%) (Auto)2018-12-22 06:18:00* Test Item Value Reference Range Interpretation Comments Basophils (%) (Auto) (test code = 706-2) 0.4 0.0-1.0 [facility] DallasIM GRANULOCYTES %2018-12-22 06:18:00* Test Item Value Reference Range Interpretation Comments IM GRANULOCYTES % (test code = IM GRANULOCYTES %) 0.1 0.0- 1.0 [facility] DallasNeutrophils # (Auto)2018-12-22 06:18:00* Test Item Value Reference Range Interpretation Comments Neutrophils # (Auto) (test code = 751-8) 1.3 2.1-6.9 L [facility] DallasLymphocytes # (Auto)2018-12-22 06:18:00* Test Item Value Reference Range Interpretation Comments Lymphocytes # (Auto) (test code = 53627-8) 3.1 1.0-3.2 [facility] DallasMonocytes # (Auto)2018-12-22 06:18:00* Test Item Value Reference Range Interpretation Comments Monocytes # (Auto) (test code = 742-7) 0.5 0.2-0.8 [facility] DallasEosinophils # (Auto)2018-12-22 06:18:00* Test Item Value Reference Range Interpretation Comments Eosinophils # (Auto) (test code = 711-2) 6.5 0.0-0.4 H [facility] DallasBasophils # (Auto)2018-12-22 06:18:00* Test Item Value Reference Range Interpretation Comments Basophils # (Auto) (test code = 704-7) 0.1 0.0-0.1 [facility] DallasAbsolute Immature Granulocyte (auto 2018-12-22 06:18:00* Test Item Value Reference Range Interpretation Comments Absolute Immature Granulocyte (auto (anurag t code = Absolute Immature Granulocyte (auto) 0.01 0-0.1 [facility] Ztyjumu1725-25-54 20:16:00* Test Item Value Reference Range Interpretation Comments Bedside Glucose (test code = 61104-6) 238 70-120 H Meter ID: [id number] Glucose 2018-12-21 20:16:00* Test Item Value Reference Range Interpretation Comments Bedside Glucose (test code = 84201-2) 238 70-120 H Meter ID: [id number]'s Medical Center DallasBlood Culture 2018-12-21 10:25:00* Test Item Value Reference Range Interpretation Comments Blood Culture (test code = 33085418) NO GROWTH AFTER [address] Shrtu8303-23-83 06:03:00* Test Item Value Reference Range Interpretation Comments Sodium Level (test code = 2951-2) 138 136-145 [facility] DallasPotassium Gtqdq2320-35-33 06:03:00* Test Item Value Reference Range Interpretation Comments Potassium Level (test code = 2823-3) 3.6 3.5-5.1 [facility] DallasChloride Fmlae7770-31-08 06:03:00* Test Item Value Reference Range Interpretation Comments Chloride Level (test code = 2075-0) 107 98-107 [facility] DallasCarbon Dioxide Mkxja2082-86-44 06:03:00* Test Item Value Reference Range Interpretation Comments Carbon Dioxide Level (test code = 2028-9) 23 22-29 [facility] DallasAnion Xqh8089-38-97 06:03:00* Test Item Value Reference Range Interpretation Comments Anion Gap (test code = 43610-0) 11.6 8-16 [facility] DallasBlood Urea Pawhaowk9209-47-07 06:03:00* Test Item Value Reference Range Interpretation Comments Blood Urea Nitrogen (test code = 3094-0) 8 7-26 [facility] DallasCreatinine2019-09-06 06:03:00* Test Item Value Reference Range Interpretation Comments Creatinine (test code = 2160-0) 0.86 0.72-1.25 [facility] DallasBUN/Creatinine Jchvu8171-68-32 06:03:00* Test Item Value Reference Range Interpretation Comments BUN/Creatinine Ratio (test code = 3097-3) 9 6-25 [facility] DallasEstimat Glomerular Filtration Rate 2018-12-21 06:03:00* Test Item Value Reference Range Interpretation Comments Estimat Glomerular Filtration Rate (test code = 494423368) > 60 >60 Ranges were taken from the National Kidney Disease Education Program and the [facility] Foundation literature.Reference ranges:60 or greater: Vabdtz42-96 ( for 3 consecutive months): Chronic kidney disease 15 or less: Kidney failureChildren[facility] Medical Center DallasGlucose Ozdwl1851-04-68 06:03:00* Test Item Value Reference Range Interpretation Comments Glucose Level (test code = QRE9848) 134 74-118 H [facility] DallasCalcium Qoezg8965-10-88 06:03:00* Test Item Value Reference Range Interpretation Comments Calcium Level (test code = 42128-7) 8.8 8.4-10.[address] [facility] Jwrlh1733-08-01 06:03:00* Test Item Value Reference Range Interpretation Comments Sodium Level (test code = 2951-2) 138 136-145 [facility] DallasPotassium Spdja3212-29-53 06:03:00* Test Item Value Reference Range Interpretation Comments Potassium Level (test code = 2823-3) 3.6 3.5-5.1 [facility] DallasChloride Nrvcq7366-26-00 06:03:00* Test Item Value Reference Range Interpretation Comments Chloride Level (test code = 2075-0) 107 98-107 [facility] DallasCarbon Dioxide Stgzo5231-75-09 06:03:00* Test Item Value Reference Range Interpretation Comments Carbon Dioxide Level (test code = 2028-9) 23 22-29 [facility] DallasAnion Gdh0567-59-56 06:03:00* Test Item Value Reference Range Interpretation Comments Anion Gap (test code = 10227-8) 11.6 8-16 [facility] DallasBlood Urea Tyfyildl4494-60-61 06:03:00* Test Item Value Reference Range Interpretation Comments Blood Urea Nitrogen (test code = 3094-0) 8 7-26 [facility] DallasCreatinine2019-09-06 06:03:00* Test Item Value Reference Range Interpretation Comments Creatinine (test code = 2160-0) 0.86 0.72-1.25 [facility] DallasBUN/Creatinine Izldq4672-54-50 06:03:00* Test Item Value Reference Range Interpretation Comments BUN/Creatinine Ratio (test code = 3097-3) 9 6- [facility] DallasEstimat Glomerular Filtration Rate 2018-12-21 06:03:00* Test Item Value Reference Range Interpretation Comments Estimat Glomerular Filtration Rate (test code = 281901775) > 60 >60 Ranges were taken from the National Kidney Disease Education Program and the [facility] Foundation literature.Reference ranges:60 or greater: Izqqhy89-34 ( for 3 consecutive months): Chronic kidney disease 15 or less: Kidney failureChildren's Medical Center DallasGlucose Qabmj3241-82-68 06:03:00* Test Item Value Reference Range Interpretation Comments Glucose Level (test code = WQL5202) 134 74-118 H [facility] DallasCalcium Puyej8977-01-02 06:03:00* Test Item Value Reference Range Interpretation Comments Calcium Level (test code = 22409-4) 8.8 8.4-10.2 [facility] DallasPoikilocytosis2019-09-05 08:37:00* Test Item Value Reference Range Interpretation Comments Poikilocytosis (test code = 779-9) MODERATE [facility] DallasAnisocytosis2019-09-05 08:37:00* Test Item Value Reference Range Interpretation Comments Anisocytosis (test code = 702-1) SLIGHT [facility] DallasOvalocytes2019-09-05 08:37:00* Test Item Value Reference Range Interpretation Comments Ovalocytes (test code = 774-0) FEW [facility] DallasElliptocytes2019-09-05 08:37:00* Test Item Value Reference Range Interpretation Comments Elliptocytes (test code = 83528-2) SLIGHT [facility] DallasPoikilocytosis2019-09-05 08:37:00* Test Item Value Reference Range Interpretation Comments Poikilocytosis (test code = 779-9) MODERATE [facility] DallasAnisocytosis2019-09-05 08:37:00* Test Item Value Reference Range Interpretation Comments Anisocytosis (test code = 702-1) SLIGHT [facility]2019-09-05 08:37:00* Test Item Value Reference Range Interpretation Comments Ovalocytes (test code = 774-0) FEW [facility]2019-09-05 08:37:00* Test Item Value Reference Range Interpretation Comments Elliptocytes (test code = 58972-4) SLIGHT [facility] DallasPoikilocytosis2019-09-05 08:37:00* Test Item Value Reference Range Interpretation Comments Poikilocytosis (test code = 779-9) [facility] Test Item Value Reference Range Interpretation Comments Anisocytosis (test code = 702-1) SLIGHT [facility] DallasOvalocytes2019-09-05 08:37:00* Test Item Value Reference Range Interpretation Comments Ovalocytes (test code = 774-0) FEW [facility] DallasElliptocytes2019-09-05 08:37:00* Test Item Value Reference Range Interpretation Comments Elliptocytes (test code = 57563-1) SLIGHT [facility] 08:37:00* Test Item Value Reference Range Interpretation Comments Poikilocytosis (test code = 779-9) MODERATE [facility]2019-09-05 08:37:00* Test Item Value Reference Range Interpretation Comments Anisocytosis (test code = 702-1) SLIGHT [facility] DallasOvalocytes2019-09-05 08:37:00* Test Item Value Reference Range Interpretation Comments Ovalocytes (test code = 774-0) FEW [facility] DallasElliptocytes2019-09-05 08:37:00* Test Item Value Reference Range Interpretation Comments Elliptocytes (test code = 05491-5) SLIGHT [facility] DallasPoikilocytosis2019-09-05 08:37:00* Test Item Value Reference Range Interpretation Comments Poikilocytosis (test code = 779-9) MODERATE [facility] DallasAnisocytosis2019-09-05 08:37:00* Test Item Value Reference Range Interpretation Comments Anisocytosis (test code = 702-1) SLIGHT [facility]2019-09-05 08:37:00* Test Item Value Reference Range Interpretation Comments Ovalocytes (test code = 774-0) FEW [facility] DallasElliptocytes2019-09-05 08:37:00* Test Item Value Reference Range Interpretation Comments Elliptocytes (test code = 74909-9) SLIGHT [facility]-05 08:37:00* Test Item Value Reference Range Interpretation Comments Poikilocytosis (test code = 779-9) [facility]ATE [facility] 08:37:00* Test Item Value Reference Range Interpretation Comments Anisocytosis (test code = 702-1) SLIGHT [facility] DallasOvalocytes2019-09-05 08:37:00* Test Item Value Reference Range Interpretation Comments Ovalocytes (test code = 774-0) FEW [facility] DallasElliptocytes2019-09-05 08:37:00* Test Item Value Reference Range Interpretation Comments Elliptocytes (test code = 38208-7) SLIGHT [facility]2019-09-05 08:37:00* Test Item Value Reference Range Interpretation Comments Poikilocytosis (test code = 779-9) MODERATE [facility] DallasAnisocytosis2019-09-05 08:37:00* Test Item Value Reference Range Interpretation Comments Anisocytosis (test code = 702-1) SLIGHT [facility] DallasOvalocytes2019-09-05 08:37:00* Test Item Value Reference Range Interpretation Comments Ovalocytes (test code = 774-0) FEW [facility] DallasElliptocytes2019-09-05 08:37:00* Test Item Value Reference Range Interpretation Comments Elliptocytes (test code = 05173-1) SLIGHT [facility] DallasCreatine Kinase JN4734-50-27 07:59:00* Test Item Value Reference Range Interpretation Comments Creatine Kinase MB (test code = 76080-0) 0.60 0-5.0 [facility] DallasTroponin P4867-29-63 07:59:00* Test Item Value Reference Range Interpretation Comments Troponin I (test code = OFT2306) 0.006 0-0.300 [facility] DallasCreatine Kinase UW0856-07-81 07:59:00* Test Item Value Reference Range Interpretation Comments Creatine Kinase MB (test code = 15963-6) 0.60 0-5.0 [place] 19196019-09-05 07:59:00* Test Item Value Reference Range Interpretation Comments Troponin I (test code = EMY5064) 0.006 0-0.300 [facility] DallasCreatine Wxtqmd9500-42-81 07:53:00* Test Item Value Reference Range Interpretation Comments Creatine Kinase (test code = 2157-6) 46 30-200 [facility] DallasCreatine Qphmkv2935-72-96 07:53:00* Test Item Value Reference Range Interpretation Comments Creatine Kinase (test code = 2157-6) 46 30-200 [facility] DallasClostridium Difficile Toxin A & B 2018-12-20 06:33:00* Test Item Value Reference Range Interpretation Comments Clostridium Difficile Toxin A & B (test code = 446585388) NEGATIVE NEGATIVE Testing on stool aspirate specimens is outside vocational case manager claims since specime n type not validated on this assay.[facility] Clostridium Difficile Toxin A & B2938-10-36 06:33:00* Test Item Value Reference Range Interpretation Comments Clostridium Difficile Toxin A & B (test code = 314736879) NEGATIVE NEGATIVE Testing on stool aspirate specimens is outside vocational case manager claims since specime n type not validated on this assay.[facility] Clostridium Difficile Toxin A & [id number] 06:33:00* Test Item Value Reference Range Interpretation Comments Clostridium Difficile Toxin A & B (test code = 146296062) NEGATIVE NEGATIVE Testing on stool aspirate specimens is outside vocational case manager claims since specime n type not validated on this assay.[facility] Clostridium Difficile Toxin A & E5275-84-08 06:33:00* Test Item Value Reference Range Interpretation Comments Clostridium Difficile Toxin A & B (test code = 810960934) NEGATIVE NEGATIVE Testing on stool aspirate specimens is outside vocational case manager claims since specime n type not validated on this assay.[facility] Clostridium Difficile Toxin A & [id number] 06:33:00* Test Item Value Reference Range Interpretation Comments Clostridium Difficile Toxin A & B (test code = 922288336) NEGATIVE NEGATIVE Testing on stool aspirate specimens is outside vocational case manager claims since specime n type not validated on this assay.[facility] Clostridium Difficile Toxin A & [id number] 06:33:00* Test Item Value Reference Range Interpretation Comments Clostridium Difficile Toxin A & B (test code = 163770264) NEGATIVE NEGATIVE Testing on stool aspirate specimens is outside vocational case manager claims since specime n type not validated on this assay.[facility] Clostridium Difficile Toxin A & [id number] 06:33:00* Test Item Value Reference Range Interpretation Comments Clostridium Difficile Toxin A & B (test code = 448861261) NEGATIVE NEGATIVE Testing on stool aspirate specimens is outside vocational case manager claims since specime n type not validated on this assay.[facility] DallasTotal Chrjhayjm2600-78-19 06:09:00* Test Item Value Reference Range Interpretation Comments Total Bilirubin (test code = 1975-2) 1.0 0.2-1.2 [facility] DallasAspartate Amino Transf (AST/SGOT) 2018-12-20 06:09:00* Test Item Value Reference Range Interpretation Comments Aspartate Amino Transf (AST/SGOT) (test code = Aspartate Amino Transf (AST/SGOT)) 20 5-34 [facility] DallasAlanine Aminotransferase (ALT/SGPT) 2018-12-20 06:09:00* Test Item Value Reference Range Interpretation Comments Alanine Aminotransferase (ALT/SGPT) (test code = 1742-6) 15 0-55 [facility] DallasTotal Xxzlxkx2678-01-82 06:09:00* Test Item Value Reference Range Interpretation Comments Total Protein (test code = 2885-2) 5.2 6.5-8.1 L [facility] DallasAlbumin2019-09-05 06:09:00* Test Item Value Reference Range Interpretation Comments Albumin (test code = 1751-7) 2.8 3.5-5.0 L [facility] DallasGlobulin2019-09-05 06:09:00* Test Item Value Reference Range Interpretation Comments Globulin (test code = 01860-9) 2.4 2.3-3.5 [facility] DallasAlbumin/Globulin Sitwa1435-20-66 06:09:00 * Test Item Value Reference Range Interpretation Comments Albumin/Globulin Ratio (test code = 1759-0) 1.2 0.8-2.0 [facility] DallasAlkaline Vzridogvdag7080-75-60 06:09:00* Test Item Value Reference Range Interpretation Comments Alkaline Phosphatase (test code = 6768-6) 82 40-150 [facility] DallasLipase2019-09-05 06:09:00* Test Item Value Reference Range Interpretation Comments Lipase (test code = 3040-3) 25 8-78 [facility] DallasTotal Pjsveyqyf2953-17-88 06:09:00* Test Item Value Reference Range Interpretation Comments Total Bilirubin (test code = 1975-2) 1.0 0.2-1.2 [facility] DallasAspartate Amino Transf (AST/SGOT) 2018-12-20 06:09:00* Test Item Value Reference Range Interpretation Comments Aspartate Amino Transf (AST/SGOT) (test code = Aspartate Amino Transf (AST/SGOT)) 20 5-34 [facility] DallasAlanine Aminotransferase (ALT/SGPT) 2018-12-20 06:09:00* Test Item Value Reference Range Interpretation Comments Alanine Aminotransferase (ALT/SGPT) (test code = 1742-6) 15 0-55 [facility] DallasTotal Stabnlo4494-02-69 06:09:00* Test Item Value Reference Range Interpretation Comments Total Protein (test code = 2885-2) 5.2 6.5-8.1 L [facility] DallasAlbumin2019-09-05 06:09:00* Test Item Value Reference Range Interpretation Comments Albumin (test code = 1751-7) 2.8 3.5-5.0 L [facility] DallasGlobulin2019-09-05 06:09:00* Test Item Value Reference Range Interpretation Comments Globulin (test code = 29291-3) 2.4 2.3-3.5 [facility] DallasAlbumin/Globulin Dhxgj2781-81-85 06:09:00 * Test Item Value Reference Range Interpretation Comments Albumin/Globulin Ratio (test code = 1759-0) 1.2 0.8-2.0 [facility] DallasAlkaline Nxdnfrgycxg8427-16-27 06:09:00* Test Item Value Reference Range Interpretation Comments Alkaline Phosphatase (test code = 6768-6) 82 40-150 [facility] DallasLipase2019-09-05 06:09:00* Test Item Value Reference Range Interpretation Comments Lipase (test code = 3040-3) [facility] DallasLipase2019-09-05 06:09:00* Test Item Value Reference Range Interpretation Comments Lipase (test code = 3040-3) [facility] DallasLipase2019-09-05 06:09:00* Test Item Value Reference Range Interpretation Comments Lipase (test code = 3040-3) [facility] DallasLipase2019-09-05 06:09:00* Test Item Value Reference Range Interpretation Comments Lipase (test code = 3040-3) [facility] DallasLipase2019-09-05 06:09:00* Test Item Value Reference Range Interpretation Comments Lipase (test code = 3040-3) [facility] DallasLipase2019-09-05 06:09:00* Test Item Value Reference Range Interpretation Comments Lipase (test code = 3040-3) [facility] DallasBand Neutrophils %2018-12-19 19:42:00* Test Item Value Reference Range Interpretation Comments Band Neutrophils % (test code = 764-1) 1 [facility] DallasBasophils % (Manual)2018-12-19 19:42:00* Test Item Value Reference Range Interpretation Comments Basophils % (Manual) (test code = 29532-9) 1 0-1.5 [facility] DallasReactive Qcjbdemufcw6028-56-20 19:42:00* Test Item Value Reference Range Interpretation Comments Reactive Lymphocytes (test code = 74300-8) 4 [facility] DallasHypochromasia2019-09-04 19:42:00* Test Item Value Reference Range Interpretation Comments Hypochromasia (test code = 728-6) [facility] 19:42:00* Test Item Value Reference Range Interpretation Comments Band Neutrophils % (test code = 764-1) 1 [facility] DallasBasophils % (Manual)2018-12-19 19:42:00* Test Item Value Reference Range Interpretation Comments Basophils % (Manual) (test code = 56755-6) 1 0-1.5 [facility] DallasReactive Sjnglisdjyj3828-23-43 19:42:00* Test Item Value Reference Range Interpretation Comments Reactive Lymphocytes (test code = 17214-2) 4 [facility] 19:42:00* Test Item Value Reference Range Interpretation Comments Hypochromasia (test code = 728-6) [facility] %2018-12-19 19:42:00* Test Item Value Reference Range Interpretation Comments Band Neutrophils % (test code = 764-1) 1 [facility] DallasBasophils % (Manual)2018-12-19 19:42:00* Test Item Value Reference Range Interpretation Comments Basophils % (Manual) (test code = 48467-1) 1 0-1.5 [facility] DallasReactive Pceabcoklkf0098-26-55 19:42:00* Test Item Value Reference Range Interpretation Comments Reactive Lymphocytes (test code = 31492-1) 4 [facility] DallasHypochromasia2019-09-04 19:42:00* Test Item Value Reference Range Interpretation Comments Hypochromasia (test code = 728-6) [facility]2018-[facility]-19 19:42:00* Test Item Value Reference Range Interpretation Comments Band Neutrophils % (test code = 764-1) 1 [facility] DallasBasophils % (Manual)2018-12-19 19:42:00* Test Item Value Reference Range Interpretation Comments Basophils % (Manual) (test code = 92139-6) 1 0-1.5 [facility]Re[facility] Mjitjjmnljj6429-59-13 19:42:00* Test Item Value Reference Range Interpretation Comments Reactive Lymphocytes (test code = 62157-9) 4 [facility] 19:42:[facility]* Test Item Value Reference Range Interpretation Comments Hypochromasia (test code = 728-6) [facility] %2018-12-19 19:42:00* Test Item Value Reference Range Interpretation Comments Band Neutrophils % (test code = 764-1) 1 [facility] DallasBasophils % (Manual)2018-12-19 19:42:00* Test Item Value Reference Range Interpretation Comments Basophils % (Manual) (test code = 28902-8) 1 0-1.5 [facility] DallasReactive Tvibghqtuve9907-88-06 19:42:00* Test Item Value Reference Range Interpretation Comments Reactive Lymphocytes (test code = 65261-0) 4 [facility] DallasHypochromasia2019-09-04 19:42:00* Test Item Value Reference Range Interpretation Comments Hypochromasia (test code = 728-6) SLIG [facility] DallasBand Neutrophils %2018-12-19 19:42:00* Test Item Value Reference Range Interpretation Comments Band Neutrophils % (test code = 764-1) 1 [facility] DallasBasophils % (Manual)2018-12-19 19:42:00* Test Item Value Reference Range Interpretation Comments Basophils % (Manual) (test code = 66590-5) 1 0-1.5 [facility] DallasReactive Bgkbbcxvsah7872-52-78 19:42:00* Test Item Value Reference Range Interpretation Comments Reactive Lymphocytes (test code = 79623-7) 4 [facility] DallasBand Neutrophils %2018-12-19 19:42:00* Test Item Value Reference Range Interpretation Comments Band Neutrophils % (test code = 764-1) 1 [facility] DallasBasophils % (Manual)2018-12-19 19:42:00* Test Item Value Reference Range Interpretation Comments Basophils % (Manual) (test code = 72888-4) 1 0-1.5 [facility] DallasReactive Jykifhfdnmz1440-24-44 19:42:00* Test Item Value Reference Range Interpretation Comments Reactive Lymphocytes (test code = 86397-2) 4 [facility] DallasLactic Acid Pshsg9189-56-35 14:20:00* Test Item Value Reference Range Interpretation Comments Lactic Acid Level (test code = Lactic Acid Level) 16.5 4.5- 19.8 [facility] DallasLactic Acid Vpgvr0412-85-93 14:20:00* Test Item Value Reference Range Interpretation Comments Lactic Acid Level (test code = Lactic Acid Level) 16.5 4.5- 19.8 [facility] DallasLactic Acid Qfkqp0884-01-85 14:20:00* Test Item Value Reference Range Interpretation Comments Lactic Acid Level (test code = Lactic Acid Level) 16.5 4.5- 19.8 [facility] DallasLactic Acid Cfwom2085-26-03 14:20:00* Test Item Value Reference Range Interpretation Comments Lactic Acid Level (test code = Lactic Acid Level) 16.5 4.5- 19.8 [facility] DallasLactic Acid Yjfga8374-05-68 14:20:00* Test Item Value Reference Range Interpretation Comments Lactic Acid Level (test code = Lactic Acid Level) 16.5 4.5- 19.8 [facility] DallasLawvic Acid Fjlui1459-65-71 14:20:00* Test Item Value Reference Range Interpretation Comments Lactic Acid Level (test code = Lactic Acid Level) 16.5 4.5- 19.8 [facility] DallasLawvic Acid Gbyqr6647-15-77 14:20:00* Test Item Value Reference Range Interpretation Comments Lactic Acid Level (test code = Lactic Acid Level) 16.5 4.5- 19.8 [facility] DallasCT ABDOMEN/PELVIS P7807-81-73 12:00:00 [facility] [address] [place] [address] Patient Name: CARLITO ROCK MR #: [id number] : [id number] Age/Sex: 78/M Req #: [id number] Adm Physician: LEOLA PONCE MD Ordered by: SALLIE ANDRE MD, MD Report #: [id number] Location: [facility] Room/Bed: [place] [address] Procedure: 0904-[address]/CT ABDOMEN/PELVIS W Exam [...] 12/19/18 1208 COPY TO: SALLIE ANDRE Magnesium Vzcag6653-61-63 11:09:00* Test Item Value Reference Range Interpretation Comments Magnesium Level (test code = 94549-2) 1.7 1.3-2.1 [facility]2019-09-04 11:09:00* Test Item Value Reference Range Interpretation Comments Magnesium Level (test code = 55142-3) 1.7 1.3-2.1 [facility]2019-09-04 11:09:00* Test Item Value Reference Range Interpretation Comments Magnesium Level (test code = 85799-1) 1.7 1.3-2.1 [facility]2019-09-04 11:09:00* Test Item Value Reference Range Interpretation Comments Magnesium Level (test code = 98694-4) 1.7 1.3-2.1 [facility]2019-09-04 11:09:00* Test Item Value Reference Range Interpretation Comments Magnesium Level (test code = 89142-1) 1.7 1.3-2.1 [facility]2019-09-04 11:09:00* Test Item Value Reference Range Interpretation Comments Magnesium Level (test code = 16782-3) 1.7 1.3-2.1 [facility]2019-09-04 11:09:00* Test Item Value Reference Range Interpretation Comments Magnesium Level (test code = 11223-7) 1.7 1.3-2.1 [facility] DallasB-Type Natriuretic Tygoqso9164-32-86 10:56:00* Test Item Value Reference Range Interpretation Comments B-Type Natriuretic Peptide (test code = 21933-5) 16.0 0-100 [facility] DallasB-[facility] Natriuretic Twmzdfe2547-26-51 10:56:00* Test Item Value Reference Range Interpretation Comments B-Type Natriuretic Peptide (test code = 89769-0) 16.0 0-100 [facility] YMO7508-86-44 09:59:00* Test Item Value Reference Range Interpretation Comments Urine WBC (test code = 5821-4) 6-10 0-5 H [facility] YJX7938-47-22 09:59:00* Test Item Value Reference Range Interpretation Comments Urine RBC (test code = 39688-2) 0-5 0-5 [facility] Zpnluwly3111-31-73 09:59:00* Test Item Value Reference Range Interpretation Comments Urine Bacteria (test code = 51825-7) MODERATE NONE H [facility] Epithelial Mbtuo9251-01-53 09:59:00 * Test Item Value Reference Range Interpretation Comments Urine Epithelial Cells (test code = 48243-0) MODERATE NONE [facility] Uzdff5370-69-30 09:59:00* Test Item Value Reference Range Interpretation Comments Urine Mucus (test code = 8247-9) MANY RARE H [facility] [id number] 09:59:00* Test Item Value Reference Range Interpretation Comments Urine WBC (test code = 5821-4) 6-10 0-5 H [facility] ISR5808-75-65 09:59:00* Test Item Value Reference Range Interpretation Comments Urine RBC (test code = 33677-5) 0-5 0-5 [facility] Knydybxe9380-68-87 09:59:00* Test Item Value Reference Range Interpretation Comments Urine Bacteria (test code = 47541-0) MODERATE NONE [facility] Esmvs3768-95-73 09:59:00 * Test Item Value Reference Range Interpretation Comments Urine Epithelial Cells (test code = 56495-6) MODERATE NONE [facility] Ekffo7229-38-73 09:59:00* Test Item Value Reference Range Interpretation Comments Urine Mucus (test code = 8247-9) MANY RARE H [facility] OZI0759-46-71 09:59:00* Test Item Value Reference Range Interpretation Comments Urine WBC (test code = 5821-4) 6-10 0-5 H [facility] DWZ5792-55-41 09:59:00* Test Item Value Reference Range Interpretation Comments Urine RBC (test code = 21062-4) 0-5 0-5 [facility] Sqmyszad1978-62-94 09:59:00* Test Item Value Reference Range Interpretation Comments Urine Bacteria (test code = 55602-5) MODERATE NONE H [facility] Epithelial Rtwxf4088-35-32 09:59:00 * Test Item Value Reference Range Interpretation Comments Urine Epithelial Cells (test code = 80371-1) MODERATE NONE [facility] Xruiz3453-23-40 09:59:00* Test Item Value Reference Range Interpretation Comments Urine Mucus (test code = 8247-9) MANY RARE H [facility] NEA3179-15-39 09:59:00* Test Item Value Reference Range Interpretation Comments Urine WBC (test code = 5821-4) 6-10 0-5 H [facility] JXZ9417-33-18 09:59:00* Test Item Value Reference Range Interpretation Comments Urine RBC (test code = 99126-1) 0-5 0-5 [facility] Nqprstmy8386-52-86 09:59:00* Test Item Value Reference Range Interpretation Comments Urine Bacteria (test code = 91888-1) MODERATE NONE H [facility] Epithelial Ejdjr5366-80-47 09:59:00 * Test Item Value Reference Range Interpretation Comments Urine Epithelial Cells (test code = 91301-6) MODERATE NONE [facility] Wrben0867-26-38 09:59:00* Test Item Value Reference Range Interpretation Comments Urine Mucus (test code = 8247-9) MANY RARE H [facility] BKL7766-16-59 09:59:00* Test Item Value Reference Range Interpretation Comments Urine WBC (test code = 5821-4) 6-10 0-5 H [facility] KQI9505-87-01 09:59:00* Test Item Value Reference Range Interpretation Comments Urine RBC (test code = 60196-3) 0-5 0-5 [facility] Vorjxdta8983-03-39 09:59:00* Test Item Value Reference Range Interpretation Comments Urine Bacteria (test code = 12185-5) MODERATE NONE [facility] Yfvtj5617-48-09 09:59:00 * Test Item Value Reference Range Interpretation Comments Urine Epithelial Cells (test code = 52898-2) MODERATE NONE [facility] Rovjz5550-80-84 09:59:00* Test Item Value Reference Range Interpretation Comments Urine Mucus (test code = 8247-9) MANY RARE H [facility] CAW6835-96-28 09:59:00* Test Item Value Reference Range Interpretation Comments Urine WBC (test code = 5821-4) 6-10 0-5 H [facility] HYF1472-82-22 09:59:00* Test Item Value Reference Range Interpretation Comments Urine RBC (test code = 49982-5) 0-5 0-5 [facility] Jgquwgnr7724-97-52 09:59:00* Test Item Value Reference Range Interpretation Comments Urine Bacteria (test code = 87175-1) MODERATE NONE [facility] Ep[facility]helial Psmwb0860-96-20 09:59:00 * Test Item Value Reference Range Interpretation Comments Urine Epithelial Cells (test code = 34027-5) MODERATE NONE [facility] Qtoce6826-00-10 09:59:00* Test Item Value Reference Range Interpretation Comments Urine Mucus (test code = 8247-9) MANY RARE H [facility] BRA7060-48-06 09:59:00* Test Item Value Reference Range Interpretation Comments Urine WBC (test code = 5821-4) 6-10 0-5 H [facility] QFH8917-91-15 09:59:00* Test Item Value Reference Range Interpretation Comments Urine RBC (test code = 49353-2) 0-5 0-5 [facility] Ewdfifsi9042-74-62 09:59:00* Test Item Value Reference Range Interpretation Comments Urine Bacteria (test code = 92261-0) MODERATE NONE [facility] Jirxy7643-43-36 09:59:00 * Test Item Value Reference Range Interpretation Comments Urine Epithelial Cells (test code = 48397-8) MODERATE NONE [facility] Zntya9740-45-76 09:59:00* Test Item Value Reference Range Interpretation Comments Urine Mucus (test code = 8247-9) MANY RARE H [facility] Qilcc6786-52-06 09:49:00* Test Item Value Reference Range Interpretation Comments Urine Color (test code = 5778-6) ORANGE YELLOW [facility] Bxzivgs4881-78-26 09:49:00* Test Item Value Reference Range Interpretation Comments Urine Clarity (test code = 53320-2) SL CLOUDY CLEAR [facility] Specific Nbmtucq7505-60-17 09:49:00 * Test Item Value Reference Range Interpretation Comments Urine Specific [place] (test code = 5811-5) >=1.030 1.010-1.02 5 [facility] bO5184-45-58 09:49:00* Test Item Value Reference Range Interpretation Comments Urine pH (test code = 08343-8) 6 5-7 [facility] Leukocyte Hnhhxrcl7464-45-32 09:49:00* Test Item Value Reference Range Interpretation Comments Urine Leukocyte Esterase (test code = 06066-0) NEGATIVE NEGATIV E [facility] Poeqxpv8228-40-74 09:49:00* Test Item Value Reference Range Interpretation Comments Urine Nitrite (test code = 75876-4) NEGATIVE NEGATIVE [facility] Lyyrmxs6185-32-45 09:49:00* Test Item Value Reference Range Interpretation Comments Urine Protein (test code = 59136-0) 1+ NEGATIVE [facility] Glucose (UA)2018-12-19 09:49:00* Test Item Value Reference Range Interpretation Comments Urine Glucose (UA) (test code = 53161-9) NEGATIVE NEGATIVE [facility] Sapaxul3446-27-52 09:49:00* Test Item Value Reference Range Interpretation Comments Urine Ketones (test code = 86831-9) 1+ NEGATIVE [facility] Tbcmuqutinar4659-31-97 09:49:00* Test Item Value Reference Range Interpretation Comments Urine Urobilinogen (test code = 47629-0) 0.2 0.2-1 [facility] Qkdqzeevo7022-47-14 09:49:00* Test Item Value Reference Range Interpretation Comments Urine Bilirubin (test code = 1977-8) NEGATIVE NEGATIVE [facility] Zasfn4308-19-19 09:49:00* Test Item Value Reference Range Interpretation Comments Urine Blood (test code = 90728-8) NEGATIVE NEGATIVE [facility] Rptdr7694-37-28 09:49:00* Test Item Value Reference Range Interpretation Comments Urine Color (test code = 5778-6) ORANGE YELLOW [facility] Qwuirvu1005-46-02 09:49:00* Test Item Value Reference Range Interpretation Comments Urine Clarity (test code = 11399-2) SL CLOUDY CLEAR [facility] Specific Mhchtts0308-56-86 09:49:00 * Test Item Value Reference Range Interpretation Comments Urine Specific [place] (test code = 5811-5) >=1.030 1.010-1.02 5 [facility] pC9493-02-63 09:49:00* Test Item Value Reference Range Interpretation Comments Urine pH (test code = 06452-8) 6 5-7 [facility] Leukocyte Qvusxduf6447-02-79 09:49:00* Test Item Value Reference Range Interpretation Comments Urine Leukocyte Esterase (test code = 37390-3) NEGATIVE NEGATIV E [facility] Jfemgbj6446-05-68 09:49:00* Test Item Value Reference Range Interpretation Comments Urine Nitrite (test code = 93656-6) NEGATIVE NEGATIVE [facility] Mfxvnmr1319-25-50 09:49:00* Test Item Value Reference Range Interpretation Comments Urine Protein (test code = 91083-7) 1+ NEGATIVE [facility] Glucose (UA)2018-12-19 09:49:00* Test Item Value Reference Range Interpretation Comments Urine Glucose (UA) (test code = 71076-0) NEGATIVE NEGATIVE [facility] Lhhleuv9566-04-02 09:49:00* Test Item Value Reference Range Interpretation Comments Urine Ketones (test code = 08824-3) 1+ NEGATIVE H [facility] Ssxftlabpgqe9581-41-66 09:49:00* Test Item Value Reference Range Interpretation Comments Urine Urobilinogen (test code = 84352-0) 0.2 0.2-1 [facility] Wupaotiic8521-86-17 09:49:00* Test Item Value Reference Range Interpretation Comments Urine Bilirubin (test code = 1977-8) NEGATIVE NEGATIVE [facility] Jkubm4551-11-29 09:49:00* Test Item Value Reference Range Interpretation Comments Urine Blood (test code = 35394-8) NEGATIVE NEGATIVE [facility] Jdsmx1884-88-35 09:49:00* Test Item Value Reference Range Interpretation Comments Urine Color (test code = 5778-6) ORANGE YELLOW [facility] Dxzudfv3607-08-58 09:49:00* Test Item Value Reference Range Interpretation Comments Urine Clarity (test code = 06891-8) SL CLOUDY CLEAR [facility] Specific Oqxvspa4093-48-62 09:49:00 * Test Item Value Reference Range Interpretation Comments Urine Specific [place] (test code = 5811-5) >=1.030 1.010-1.02 5 [facility] eX4951-26-70 09:49:00* Test Item Value Reference Range Interpretation Comments Urine pH (test code = 30837-8) 6 5-7 [facility] Leukocyte Rekanfmo1187-78-00 09:49:00* Test Item Value Reference Range Interpretation Comments Urine Leukocyte Esterase (test code = 77095-3) NEGATIVE NEGATIV E [facility] Ikzhrxd6486-93-10 09:49:00* Test Item Value Reference Range Interpretation Comments Urine Nitrite (test code = 47837-6) NEGATIVE NEGATIVE [facility] Chzieyc0380-74-66 09:49:00* Test Item Value Reference Range Interpretation Comments Urine Protein (test code = 79771-9) 1+ NEGATIVE [facility] Glucose (UA)2018-12-19 09:49:00* Test Item Value Reference Range Interpretation Comments Urine Glucose (UA) (test code = 82830-1) NEGATIVE NEGATIVE [facility] Ltrhson8546-02-29 09:49:00* Test Item Value Reference Range Interpretation Comments Urine Ketones (test code = 07075-4) 1+ NEGATIVE H [facility] Bajcpczocnvq8334-81-19 09:49:00* Test Item Value Reference Range Interpretation Comments Urine Urobilinogen (test code = 31352-4) 0.2 0.2-1 [facility] Wemdasjhg6908-46-65 09:49:00* Test Item Value Reference Range Interpretation Comments Urine Bilirubin (test code = 1977-8) NEGATIVE NEGATIVE [facility] Ozkeu5409-93-91 09:49:00* Test Item Value Reference Range Interpretation Comments Urine Blood (test code = 95253-3) NEGATIVE NEGATIVE [facility] Zbkdd8102-08-83 09:49:00* Test Item Value Reference Range Interpretation Comments Urine Color (test code = 5778-6) ORANGE YELLOW [facility] Rdafons7543-42-21 09:49:00* Test Item Value Reference Range Interpretation Comments Urine Clarity (test code = 39767-8) SL CLOUDY CLEAR [facility] Specific Etocjkc5707-44-60 09:49:00 * Test Item Value Reference Range Interpretation Comments Urine Specific [place] (test code = 5811-5) >=1.030 1.010-1.02 5 [facility] aR8746-06-89 09:49:00* Test Item Value Reference Range Interpretation Comments Urine pH (test code = 17332-7) 6 5-7 [facility] Leukocyte Sbgqsdgt5924-67-16 09:49:00* Test Item Value Reference Range Interpretation Comments Urine Leukocyte Esterase (test code = 65367-6) NEGATIVE NEGATIV E [facility] Jrxdqrs5537-19-83 09:49:00* Test Item Value Reference Range Interpretation Comments Urine Nitrite (test code = 87580-0) NEGATIVE NEGATIVE [facility] Rxeslka1224-00-14 09:49:00* Test Item Value Reference Range Interpretation Comments Urine Protein (test code = 13535-9) 1+ NEGATIVE [facility] Glucose (UA)2018-12-19 09:49:00* Test Item Value Reference Range Interpretation Comments Urine Glucose (UA) (test code = 94032-9) NEGATIVE NEGATIVE [facility] Uepodwq0141-39-67 09:49:00* Test Item Value Reference Range Interpretation Comments Urine Ketones (test code = 98863-6) 1+ NEGATIVE [facility] Hmsjvgholbqn6780-61-98 09:49:00* Test Item Value Reference Range Interpretation Comments Urine Urobilinogen (test code = 59534-9) 0.2 0.2-1 [facility] Ezgsgwhls9831-74-58 09:49:00* Test Item Value Reference Range Interpretation Comments Urine Bilirubin (test code = 1977-8) NEGATIVE NEGATIVE [facility] Laiwn5642-97-39 09:49:00* Test Item Value Reference Range Interpretation Comments Urine Blood (test code = 54021-3) NEGATIVE NEGATIVE [facility] Axbom4209-94-02 09:49:00* Test Item Value Reference Range Interpretation Comments Urine Color (test code = 5778-6) ORANGE YELLOW [facility] Dwkshha1501-28-96 09:49:00* Test Item Value Reference Range Interpretation Comments Urine Clarity (test code = 55483-7) SL CLOUDY CLEAR [facility] Specific Grncpta0921-47-41 09:49:00 * Test Item Value Reference Range Interpretation Comments Urine Specific [place] (test code = 5811-5) >=1.030 1.010-1.02 5 [facility] fJ3441-22-81 09:49:00* Test Item Value Reference Range Interpretation Comments Urine pH (test code = 01603-6) 6 5-7 [facility] Leukocyte Lfnzzypt8151-77-61 09:49:00* Test Item Value Reference Range Interpretation Comments Urine Leukocyte Esterase (test code = 12597-2) NEGATIVE NEGATIV E [facility] Qrhalac4621-71-82 09:49:00* Test Item Value Reference Range Interpretation Comments Urine Nitrite (test code = 22497-2) NEGATIVE NEGATIVE [facility] Ktbhtdj2733-43-16 09:49:00* Test Item Value Reference Range Interpretation Comments Urine Protein (test code = 38737-5) 1+ NEGATIVE H [facility] Glucose (UA)2018-12-19 09:49:00* Test Item Value Reference Range Interpretation Comments Urine Glucose (UA) (test code = 34484-1) NEGATIVE NEGATIVE [facility] Adrlcam6020-59-04 09:49:00* Test Item Value Reference Range Interpretation Comments Urine Ketones (test code = 10475-9) 1+ NEGATIVE H [facility] Tderwcqllmyr6371-95-16 09:49:00* Test Item Value Reference Range Interpretation Comments Urine Urobilinogen (test code = 81901-7) 0.2 0.2-1 [facility] Ciwutlvnq0097-16-71 09:49:00* Test Item Value Reference Range Interpretation Comments Urine Bilirubin (test code = 1977-8) NEGATIVE NEGATIVE [facility] Avwag1591-86-67 09:49:00* Test Item Value Reference Range Interpretation Comments Urine Blood (test code = 03475-1) NEGATIVE NEGATIVE [facility] Rlrqy4982-07-06 09:49:00* Test Item Value Reference Range Interpretation Comments Urine Color (test code = 5778-6) ORANGE YELLOW [facility] Wchuzcc7057-29-33 09:49:00* Test Item Value Reference Range Interpretation Comments Urine Clarity (test code = 39340-1) SL CLOUDY CLEAR [facility] Specific Jxosjyg9667-44-95 09:49:00 * Test Item Value Reference Range Interpretation Comments Urine Specific [place] (test code = 5811-5) >=1.030 1.010-1.02 5 [facility] kG7319-30-36 09:49:00* Test Item Value Reference Range Interpretation Comments Urine pH (test code = 30931-4) 6 5-7 [facility] Leukocyte Gcxzdvsg2596-73-52 09:49:00* Test Item Value Reference Range Interpretation Comments Urine Leukocyte Esterase (test code = 45937-6) NEGATIVE NEGATIV E [facility] Acshjna5997-01-11 09:49:00* Test Item Value Reference Range Interpretation Comments Urine Nitrite (test code = 35783-1) NEGATIVE NEGATIVE [facility] Wffdcxx5111-81-48 09:49:00* Test Item Value Reference Range Interpretation Comments Urine Protein (test code = 10626-3) 1+ NEGATIVE [facility] Glucose (UA)2018-12-19 09:49:00* Test Item Value Reference Range Interpretation Comments Urine Glucose (UA) (test code = 77342-2) NEGATIVE NEGATIVE [facility] Cuslhai7059-52-15 09:49:00* Test Item Value Reference Range Interpretation Comments Urine Ketones (test code = 03121-6) 1+ NEGATIVE H [facility] Saflvagqdkeq9557-41-93 09:49:00* Test Item Value Reference Range Interpretation Comments Urine Urobilinogen (test code = 68626-8) 0.2 0.2-1 [facility] Ecpnlhgqs7709-58-56 09:49:00* Test Item Value Reference Range Interpretation Comments Urine Bilirubin (test code = 1977-8) NEGATIVE NEGATIVE [facility] Mtkil6910-90-03 09:49:00* Test Item Value Reference Range Interpretation Comments Urine Blood (test code = 78836-7) NEGATIVE NEGATIVE [facility] Tmedj1383-08-07 09:49:00* Test Item Value Reference Range Interpretation Comments Urine Color (test code = 5778-6) ORANGE YELLOW [facility] Pgvejac6125-85-03 09:49:00* Test Item Value Reference Range Interpretation Comments Urine Clarity (test code = 94956-7) SL CLOUDY CLEAR [facility] Specific Gxtwkxy5461-84-62 09:49:00 * Test Item Value Reference Range Interpretation Comments Urine Specific [place] (test code = 5811-5) >=1.030 1.010-1.02 5 [facility] kW4586-07-96 09:49:00* Test Item Value Reference Range Interpretation Comments Urine pH (test code = 79215-7) 6 5-7 [facility] Leukocyte Nlszufnq0831-73-33 09:49:00* Test Item Value Reference Range Interpretation Comments Urine Leukocyte Esterase (test code = 63928-6) NEGATIVE NEGATIV E [facility] Seypkse9838-71-68 09:49:00* Test Item Value Reference Range Interpretation Comments Urine Nitrite (test code = 88556-7) NEGATIVE NEGATIVE [facility] Eoeptxz0447-58-81 09:49:00* Test Item Value Reference Range Interpretation Comments Urine Protein (test code = 78234-3) 1+ NEGATIVE [facility] Glucose (UA)2018-12-19 09:49:00* Test Item Value Reference Range Interpretation Comments Urine Glucose (UA) (test code = 21366-8) NEGATIVE NEGATIVE [facility] Adipdps8278-05-06 09:49:00* Test Item Value Reference Range Interpretation Comments Urine Ketones (test code = 26669-8) 1+ NEGATIVE H [facility] Exazaxqbojsw6392-37-76 09:49:00* Test Item Value Reference Range Interpretation Comments Urine Urobilinogen (test code = 68136-2) 0.2 0.2-1 [facility] Ielcmnfks7354-19-05 09:49:00* Test Item Value Reference Range Interpretation Comments Urine Bilirubin (test code = 1977-8) NEGATIVE NEGATIVE [facility] Fevor2601-08-33 09:49:00* Test Item Value Reference Range Interpretation Comments Urine Blood (test code = 39184-0) NEGATIVE NEGATIVE [facility]2019-09-04 09:47:00* Test Item Value Reference Range Interpretation Comments Ammonia (test code = 01386-5) 112 -123 [facility]2019-09-04 09:47:00* Test Item Value Reference Range Interpretation Comments Ammonia (test code = 46464-1) 112 -123 [facility]2019-09-04 09:47:00* Test Item Value Reference Range Interpretation Comments Ammonia (test code = 99957-9) 112 123 [facility]2019-09-04 09:47:00* Test Item Value Reference Range Interpretation Comments Ammonia (test code = 90472-1) 112 123 [facility]2019-09-04 09:47:00* Test Item Value Reference Range Interpretation Comments Ammonia (test code = 33497-4) 112 123 [facility]2018-12-19 09:09:00 [facility] [address] [place] [address] Patient Name: CARLITO ROCK MR #: [id number] : 1940 Age/Sex: 78/M Req #: [id number] Adm Physician: Ordered by: THAI BOWSER, SALLIE BOWSER Report #: [id number] Location: ER Room/Bed: Procedure: 4 DX/CHEST SINGLE [...] MD 9 COPY TO: SALLIE ANDRE Prothrombin Cpnz8897-51-63 09:08:00* Test Item Value Reference Range Interpretation Comments Prothrombin Time (test code = 5902-2) 15.0 11.9-14.5 H [facility] International Ratio 2018-12-19 09:08:00* Test Item Value Reference Range Interpretation Comments Prothromb Time International Ratio (test code = 6301-6) 1.13 Oral Anticoagulant Therapy INR Values:1. Low Intensity Therapy 1.5 - 2.02 . Moderate Intensity Therapy 2.0 - 3.03. High Intensity Therapy(1) 2.5 - 3. 54. High Intensity Therapy(2) 3.0 - 4.05. Panic Value INR > 5.0 [facility] Partial Thromboplast Time 2018-12-19 09:08:00* Test Item Value Reference Range Interpretation Comments Activated Partial Thromboplast Time (test code = 73798-7) 37.2 23.8-35.5 H [facility] Dallas[facility]th[facility]bin Qowy9293-43-52 09:08:00* Test Item Value Reference Range Interpretation Comments Prothrombin Time (test code = 5902-2) 15.0 11.9-14.5 H [facility] Dallas[facility] Time International Ratio 2018-12-19 09:08:00* Test Item Value Reference Range Interpretation Comments Prothromb Time International Ratio (test code = 6301-6) 1.13 Oral Anticoagulant Therapy INR Values:1. Low Intensity Therapy 1.5 - 2.02 . Moderate Intensity Therapy 2.0 - 3.03. High Intensity Therapy(1) 2.5 - 3. 54. High Intensity Therapy(2) 3.0 - 4.05. Panic Value INR > 5.0 [facility] Partial Thromboplast Time 2018-12-19 09:08:00* Test Item Value Reference Range Interpretation Comments Activated Partial Thromboplast Time (test code = 02798-1) 37.2 23.8-35.5 H [facility] Dallas[facility] Vzvmmhe0436-57-65 08:14:00* Test Item Value Reference Range Interpretation Comments Bedside Glucose (test code = 57288-1) 136 70-120 H Meter ID: [id number] [facility] Tyzibmv2809-81-75 07:52:00* Test Item Value Reference Range Interpretation Comments Differential Total Cells Counted (test code = Differbipin tial Total Cells Counted) 100 [facility] DallasNe[facility] % (Manual)2018-12-08 07:52:00 * Test Item Value Reference Range Interpretation Comments Neutrophils % (Manual) (test code = 96428-6) 46 40-74 [facility] DallasLymph[facility] % (Manual)2018-12-08 07:52:00 * Test Item Value Reference Range Interpretation Comments Lymphocytes % (Manual) (test code = 737-7) 34 19-48 [facility] Dallas[facility] % (Manual)2018-12-08 07:52:00* Test Item Value Reference Range Interpretation Comments Monocytes % (Manual) (test code = 744-3) 10 3.4-9.0 H [facility] Dallas[facility] % (Manual)2018-12-08 07:52:00 * Test Item Value Reference Range Interpretation Comments Eosinophils % (Manual) (test code = 714-6) 10 0-7 H [facility] DallasPlatelet Iwrvherl8766-90-59 07:52:00* Test Item Value Reference Range Interpretation Comments Platelet Estimate (test code = 70660-6) ADEQUATE [facility] Morphology Goxxpcp3932-30-59 07:52:00* Test Item Value Reference Range Interpretation Comments Platelet Morphology Comment (test code = 48737-1) NORMAL [facility] DallasAnisocytosis2019-08-24 07:52:00* Test Item Value Reference Range Interpretation Comments Anisocytosis (test code = 702-1) SLIGHT [facility] DallasMicrocytosis2019-08-24 07:52:00* Test Item Value Reference Range Interpretation Comments Microcytosis (test code = 741-9) SLIGHT [facility] DallasMacrocytosis2019[facility] 07:52:00* Test Item Value Reference Range Interpretation Comments Macrocytosis (test code = 738-5) SLIGHT [facility] DallasRed Cell Morphology Cdhyidd3549-58-53 07:52:00* Test Item Value Reference Range Interpretation Comments Red Cell Morphology Comment (test code = 6742-1) NORMAL [facility] DallasMicrocytosis2019-08-24 07:52:00* Test Item Value Reference Range Interpretation Comments Microcytosis (test code = 741-9) SLIGHT [facility] DallasMacrocytosis2019-08-24 07:52:00* Test Item Value Reference Range Interpretation Comments Macrocytosis (test code = 738-5) SLIGHT [facility] DallasMicrocytosis2019-08-24 07:52:00* Test Item Value Reference Range Interpretation Comments Microcytosis (test code = 741-9) SLIGHT [facility] DallasMacrocytosis2019-08-24 07:52:00* Test Item Value Reference Range Interpretation Comments Macrocytosis (test code = 738-5) SLIGHT [facility] DallasMicrocytosis2019-08-24 07:52:00* Test Item Value Reference Range Interpretation Comments Microcytosis (test code = 741-9) SLIGHT [facility] DallasMacrocytosis2019-08-24 07:52:00* Test Item Value Reference Range Interpretation Comments Macrocytosis (test code = 738-5) SLIGHT [facility] DallasMicrocytosis2019-08-24 07:52:00* Test Item Value Reference Range Interpretation Comments Microcytosis (test code = 741-9) SLIGHT [facility] Districtytosis2019-08-24 07:52:00* Test Item Value Reference Range Interpretation Comments Macrocytosis (test code = 738-5) SLIGHT [facility]2019-08-24 07:52:00* Test Item Value Reference Range Interpretation Comments Microcytosis (test code = 741-9) SLIGHT [facility]2019-08-24 07:52:00* Test Item Value Reference Range Interpretation Comments Macrocytosis (test code = 738-5) SLIGHT [facility]2019-08-24 07:52:00* Test Item Value Reference Range Interpretation Comments Microcytosis (test code = 741-9) SLIGHT [facility] Districtytosis2019-08-24 07:52:00* Test Item Value Reference Range Interpretation Comments Macrocytosis (test code = 738-5) [facility] 07:52[facility]* Test Item Value Reference Range Interpretation Comments Microcytosis (test code = 741-9) SLIGHT [facility]2019-08-24 07:52:00* Test Item Value Reference Range Interpretation Comments Macrocytosis (test code = 738-5) SLIGHT [facility] DallasAmmonia2019-08-24 05:42:00* Test Item Value Reference Range Interpretation Comments Ammonia (test code = 20851-8) 106 31-123 [facility] DallasWhite Blood Cvcgz6369-46-14 05:37:00* Test Item Value Reference Range Interpretation Comments White Blood Count (test code = 6690-2) 11.02 4.8-10.8 H [facility] DallasRed Blood Jytrt3909-84-39 05:37:00* Test Item Value Reference Range Interpretation Comments Red Blood Count (test code = 789-8) 3.59 4.3-5.7 L [facility] DallasHemoglobin2019-08-24 05:37:00* Test Item Value Reference Range Interpretation Comments Hemoglobin (test code = 23322-8) 7.8 14.0-18.0 L [facility] DallasHematocrit2019-08-24 05:37:00* Test Item Value Reference Range Interpretation Comments Hematocrit (test code = 4544-3) 27.0 38.2-49.6 L [facility] DallasMean Corpuscular Aswncn3409-60-19 05:37:00* Test Item Value Reference Range Interpretation Comments Mean Corpuscular Volume (test code = 787-2) 75.2 81-99 L [facility] DallasMean Corpuscular Wpvytoblit0645-31-63 05:37:00* Test Item Value Reference Range Interpretation Comments Mean Corpuscular Hemoglobin (test code = 785-6) 21.7 28-32 L [facility] DallasMean Corpuscular Hemoglobin Concent 2018-12-08 05:37:00* Test Item Value Reference Range Interpretation Comments Mean Corpuscular Hemoglobin Concent (test code = 786-4) 28.9 31-35 L [facility] DallasRed Cell Distribution Uikaa3872-24-82 05:37:00* Test Item Value Reference Range Interpretation Comments Red Cell Distribution Width (test code = 38490-0) 19.3 11.7 -14.4 H [facility] DallasPlatelet Cqgfh3617-09-60 05:37:00* Test Item Value Reference Range Interpretation Comments Platelet Count (test code = 777-3) 183 140-360 [facility] DallasNeutrophils (%) (Auto)2018-12-08 05:37:00 * Test Item Value Reference Range Interpretation Comments Neutrophils (%) (Auto) (test code = 96478-9) 34.0 38.7-80.0 L [facility] DallasLymphocytes (%) (Auto)2018-12-08 05:37:00 * Test Item Value Reference Range Interpretation Comments Lymphocytes (%) (Auto) (test code = 736-9) 44.9 18.0-39.1 H [facility] DallasMonocytes (%) (Auto)2018-12-08 05:37:00* Test Item Value Reference Range Interpretation Comments Monocytes (%) (Auto) (test code = 5905-5) 5.8 4.4-11.3 [facility] DallasEosinophils (%) (Auto)2018-12-08 05:37:00 * Test Item Value Reference Range Interpretation Comments Eosinophils (%) (Auto) (test code = 713-8) 14.2 0.0-6.0 H [facility] DallasBasophils (%) (Auto)2018-12-08 05:37:00* Test Item Value Reference Range Interpretation Comments Basophils (%) (Auto) (test code = 706-2) 0.3 0.0-1.0 [facility] DallasIM GRANULOCYTES %2018-12-08 05:37:00* Test Item Value Reference Range Interpretation Comments IM GRANULOCYTES % (test code = IM GRANULOCYTES %) 0.8 0.0- 1.0 [facility] DallasNeutrophils # (Auto)2018-12-08 05:37:00* Test Item Value Reference Range Interpretation Comments Neutrophils # (Auto) (test code = 751-8) 3.8 2.1-6.9 [facility] DallasLymphocytes # (Auto)2018-12-08 05:37:00* Test Item Value Reference Range Interpretation Comments Lymphocytes # (Auto) (test code = 22806-0) 5.0 1.0-3.2 H [facility] DallasMonocytes # (Auto)2018-12-08 05:37:00* Test Item Value Reference Range Interpretation Comments Monocytes # (Auto) (test code = 742-7) 0.6 0.2-0.8 [facility] DallasEosinophils # (Auto)2018-12-08 05:37:00* Test Item Value Reference Range Interpretation Comments Eosinophils # (Auto) (test code = 711-2) 1.6 0.0-0.4 H [facility] DallasBasophils # (Auto)2018-12-08 05:37:00* Test Item Value Reference Range Interpretation Comments Basophils # (Auto) (test code = 704-7) 0.0 0.0-0.1 [facility] DallasAbsolute Immature Granulocyte (auto 2018-12-08 05:37:00* Test Item Value Reference Range Interpretation Comments Absolute Immature Granulocyte (auto (anurag t code = Absolute Immature Granulocyte (auto) 0.09 0-0.[address] [facility] Twjpy4777-55-05 08:13:00* Test Item Value Reference Range Interpretation Comments Sodium Level (test code = 2951-2) 141 136-145 [facility] DallasPotassium Hoyxy0502-47-07 08:13:00* Test Item Value Reference Range Interpretation Comments Potassium Level (test code = 2823-3) 3.6 3.5-5.1 [facility] DallasChloride Zmcbh8540-74-31 08:13:00* Test Item Value Reference Range Interpretation Comments Chloride Level (test code = 2075-0) 108 98-107 H [facility] DallasCarbon Dioxide Tulpv6478-89-51 08:13:00* Test Item Value Reference Range Interpretation Comments Carbon Dioxide Level (test code = 2028-9) 25 22-29 [facility] DallasAnion Lqy8425-85-49 08:13:00* Test Item Value Reference Range Interpretation Comments Anion Gap (test code = 23307-0) 11.6 8-16 [facility] DallasBlood Urea Fyiusyzp4682-62-90 08:13:00* Test Item Value Reference Range Interpretation Comments Blood Urea Nitrogen (test code = 3094-0) 5 7-26 L [facility] DallasCreatinine2019-08-23 08:13:00* Test Item Value Reference Range Interpretation Comments Creatinine (test code = 2160-0) 0.78 0.72-1.25 [facility] DallasBUN/Creatinine Iukij8872-68-40 08:13:00* Test Item Value Reference Range Interpretation Comments BUN/Creatinine Ratio (test code = 3097-3) 6 6-25 [facility] DallasEstimat Glomerular Filtration Rate 2018-12-07 08:13:00* Test Item Value Reference Range Interpretation Comments Estimat Glomerular Filtration Rate (test code = 772475807) > 60 >60 Ranges were taken from the National Kidney Disease Education Program and the [facility] Kidney Foundation literature.Reference ranges:60 or greater: Cardww52-85 ( for 3 consecutive months): Chronic kidney disease 15 or less: Kidney failureChildren's Medical Center DallasGlucose Vbnkp9323-18-57 08:13:00* Test Item Value Reference Range Interpretation Comments Glucose Level (test code = AHM6369) 100 74-118 [facility] DallasCalcium Ygphz5142-99-94 08:13:00* Test Item Value Reference Range Interpretation Comments Calcium Level (test code = 63547-6) 8.5 8.4-10.2 [facility] DallasTotal Sysyypomh2196-33-17 08:13:00* Test Item Value Reference Range Interpretation Comments Total Bilirubin (test code = 1975-2) 0.6 0.2-1.2 [facility] DallasAspartate Amino Transf (AST/SGOT) 2018-12-07 08:13:00* Test Item Value Reference Range Interpretation Comments Aspartate Amino Transf (AST/SGOT) (test code = Aspartate Amino Transf (AST/SGOT)) 27 5-34 [facility] DallasAlanine Aminotransferase (ALT/SGPT) 2018-12-07 08:13:00* Test Item Value Reference Range Interpretation Comments Alanine Aminotransferase (ALT/SGPT) (test code = 1742-6) 17 0-55 [facility] DallasTotal Lcfcgul6196-88-92 08:13:00* Test Item Value Reference Range Interpretation Comments Total Protein (test code = 2885-2) 5.3 6.5-8.1 L [facility] DallasAlbumin2019-08-23 08:13:00* Test Item Value Reference Range Interpretation Comments Albumin (test code = 1751-7) 2.9 3.5-5.0 L [facility] DallasGlobulin2019-08-23 08:13:00* Test Item Value Reference Range Interpretation Comments Globulin (test code = 91686-3) 2.4 2.3-3.5 [facility] DallasAlbumin/Globulin Zjtiy5347-04-93 08:13:00 * Test Item Value Reference Range Interpretation Comments Albumin/Globulin Ratio (test code = 1759-0) 1.2 0.8-2.0 [facility] DallasAlkaline Mopmyzniiji1103-64-83 08:13:00* Test Item Value Reference Range Interpretation Comments Alkaline Phosphatase (test code = 6768-6) 80 40-150 [facility] DallasUrine NEB7618-63-20 14:36:00* Test Item Value Reference Range Interpretation Comments Urine WBC (test code = 5821-4) NONE 0-5 [facility] DallasUrine XUD5254-48-96 14:36:00* Test Item Value Reference Range Interpretation Comments Urine RBC (test code = 87867-1) NONE 0-5 [facility] DallasUrine Zqhtoygy5361-10-95 14:36:00* Test Item Value Reference Range Interpretation Comments Urine Bacteria (test code = 27533-7) MODERATE NONE H [facility] DallasUrine Epithelial Zesnq5816-98-97 14:36:00 * Test Item Value Reference Range Interpretation Comments Urine Epithelial Cells (test code = 40793-6) FEW NONE [facility] DallasUrine Nlual3732-10-75 14:36:00* Test Item Value Reference Range Interpretation Comments Urine Mucus (test code = 8247-9) MODERATE RARE H [facility] DallasUrine Ssljt8227-87-31 14:25:00* Test Item Value Reference Range Interpretation Comments Urine Color (test code = 5778-6) YELLOW YELLOW [facility] DallasUrine Qdubvcv8472-73-71 14:25:00* Test Item Value Reference Range Interpretation Comments Urine Clarity (test code = 44326-8) SL CLOUDY CLEAR H [facility] DallasUrine Specific Gmlbtvp2583-60-19 14:25:00 * Test Item Value Reference Range Interpretation Comments Urine Specific [place] (test code = 5811-5) 1.025 1.010-1.02 5 [facility] DallasUrine oJ8113-11-61 14:25:00* Test Item Value Reference Range Interpretation Comments Urine pH (test code = 84221-4) 6 5-7 [facility] DallasUrine Leukocyte Uxkjtnfu8098-14-67 14:25:00* Test Item Value Reference Range Interpretation Comments Urine Leukocyte Esterase (test code = 50162-9) NEGATIVE NEGATIV E [facility] DallasUrine Sapdgwf5254-10-55 14:25:00* Test Item Value Reference Range Interpretation Comments Urine Nitrite (test code = 68082-0) NEGATIVE NEGATIVE [facility] DallasUrine Rwmselx7856-41-26 14:25:00* Test Item Value Reference Range Interpretation Comments Urine Protein (test code = 62467-5) NEGATIVE NEGATIVE [facility] DallasUrine Glucose (UA)2018-12-06 14:25:00* Test Item Value Reference Range Interpretation Comments Urine Glucose (UA) (test code = 93259-9) 3+ NEGATIVE [facility] DallasUrine Ifwdxxr8315-99-57 14:25:00* Test Item Value Reference Range Interpretation Comments Urine Ketones (test code = 67824-0) NEGATIVE NEGATIVE [facility] DallasUrine Rwiluwuqcplu8444-94-01 14:25:00* Test Item Value Reference Range Interpretation Comments Urine Urobilinogen (test code = 11895-2) 0.2 0.2-1 [facility] DallasUrine Lrwdtoyak7144-92-07 14:25:00* Test Item Value Reference Range Interpretation Comments Urine Bilirubin (test code = 1977-8) NEGATIVE NEGATIVE [facility] DallasUrine Kyqxj4822-76-02 14:25:00* Test Item Value Reference Range Interpretation Comments Urine Blood (test code = 75294-9) NEGATIVE NEGATIVE [facility] Occult Mbhjw7276-05-27 10:48:00* Test Item Value Reference Range Interpretation Comments Stool Occult Blood (test code = 2335-8) NEGATIVE NEGATIVE [facility] Occult Zgnqz4413-01-13 10:48:00* Test Item Value Reference Range Interpretation Comments Stool Occult Blood (test code = 2335-8) NEGATIVE NEGATIVE [facility] Occult Gefay3356-18-06 10:48:00* Test Item Value Reference Range Interpretation Comments Stool Occult Blood (test code = 2335-8) NEGATIVE NEGATIVE [facility] Occult Beaxi6978-75-21 10:48:00* Test Item Value Reference Range Interpretation Comments Stool Occult Blood (test code = 2335-8) NEGATIVE NEGATIVE [facility] Occult Xsmoe7318-60-81 10:48:00* Test Item Value Reference Range Interpretation Comments Stool Occult Blood (test code = 2335-8) NEGATIVE NEGATIVE [facility] Occult Typih6126-64-42 10:48:00* Test Item Value Reference Range Interpretation Comments Stool Occult Blood (test code = 2335-8) NEGATIVE NEGATIVE [facility] Occult Hqpsr1866-15-67 10:48:00* Test Item Value Reference Range Interpretation Comments Stool Occult Blood (test code = 2335-8) NEGATIVE NEGATIVE [facility] Occult Yjvmj0543-69-01 10:48:00* Test Item Value Reference Range Interpretation Comments Stool Occult Blood (test code = 2335-8) NEGATIVE NEGATIVE [facility] DallasCT ABDOMEN/PELVIS E7710-93-51 01:19:00 [facility] [address] [place] [address] Patient Name: CARLITO ROCK MR #: [id number] : 9[birth year] Age/Sex: 78/M Req #: [id number] [facility] Physician: LEOLA PONCE MD Ordered by: JUAN RUIZ MD Report #: [id number] Location: [facility] Room/Bed: [place] [address] Procedure: [id number] CT/ CT ABDOMEN/PELVIS W Exam Date: Exam [...] thickening, correlate for cystitis. Signed by: Buzz Gfof DO on 12/06/2018 1:29 AM Dictated By: CORBIN GOFF DO 8 Transcribed By: FISH on 12/06/18128 COPY TO: JUAN RUIZ MD Ubqjmxidzlvis1313-98-95 20:32:00* Test Item Value Reference Range Interpretation Comments Hypochromasia (test code = 728-6) MODERATE [facility]2019-08-21 20:32:00* Test Item Value Reference Range Interpretation Comments Dohle Bodies (test code = 7792-5) FEW [facility]2019-08-21 20:32:00* Test Item Value Reference Range Interpretation Comments Dohle Bodies (test code = 7792-5) FEW [facility]2019-08-21 20:32:00* Test Item Value Reference Range Interpretation Comments Dohle Bodies (test code = 7792-5) FEW [facility]2019-08-21 20:32:00* Test Item Value Reference Range Interpretation Comments Dohle Bodies (test code = 7792-5) FEW [facility]2019-08-21 20:32:00* Test Item Value Reference Range Interpretation Comments Dohle Bodies (test code = 7792-5) FEW [facility]2019-08-21 20:32:00* Test Item Value Reference Range Interpretation Comments Dohle Bodies (test code = 7792-5) FEW [facility]2019-08-21 20:32:00* Test Item Value Reference Range Interpretation Comments Dohle Bodies (test code = 7792-5) FEW [facility]2019-08-21 20:32:00* Test Item Value Reference Range Interpretation Comments Dohle Bodies (test code = 7792-5) FEW [facility] DallasIron Hpeln9735-51-86 18:07:00* Test Item Value Reference Range Interpretation Comments Iron Level (test code = 2498-4) 28 65-175 L [facility] Iron Binding Tqwmtfgj1362-17-61 18:07:00* Test Item Value Reference Range Interpretation Comments Total Iron Binding Capacity (test code = 2500-7) 587 261-4 78 H [facility] DallasPercent Iron Bsuwnegxuh1152-10-85 18:07:00* Test Item Value Reference Range Interpretation Comments Percent Iron Saturation (test code = 2502-3) 5 15-50 L [facility] DallasTransferrin2019-08-21 18:07:00* Test Item Value Reference Range Interpretation Comments Transferrin (test code = 3034-6) 419 174-364 H [facility]2019-08-21 18:07:00* Test Item Value Reference Range Interpretation Comments Iron Level (test code = 2498-4) 28 65-175 L [facility] Iron Binding Ypgjfdse4399-70-31 18:07:00* Test Item Value Reference Range Interpretation Comments Total Iron Binding Capacity (test code = 2500-7) 587 261-4 78 H [facility] Iron Czhplrlhux1644-16-77 18:07:00* Test Item Value Reference Range Interpretation Comments Percent Iron Saturation (test code = 2502-3) 5 15-50 L [facility] DallasTransferrin2019-08-21 18:07:00* Test Item Value Reference Range Interpretation Comments Transferrin (test code = 3034-6) 419 174-364 H [facility]2019-08-21 18:07:00* Test Item Value Reference Range Interpretation Comments Iron Level (test code = 2498-4) 28 65-175 L [facility] Iron Binding Zaraqbjp3778-44-20 18:07:00* Test Item Value Reference Range Interpretation Comments Total Iron Binding Capacity (test code = 2500-7) 587 261-4 78 H [facility] DallasPercent Iron Avheqlrgzj5798-70-01 18:07:00* Test Item Value Reference Range Interpretation Comments Percent Iron Saturation (test code = 2502-3) 5 15-50 L [facility]2019-08-21 18:07:00* Test Item Value Reference Range Interpretation Comments Transferrin (test code = 3034-6) 419 174-364 H [facility]2019-08-21 18:07:00* Test Item Value Reference Range Interpretation Comments Iron Level (test code = 2498-4) 28 65-175 L [facility] DallasToshriners [facility] Iron Binding Qnesocja7165-63-92 18:07:00* Test Item Value Reference Range Interpretation Comments Total Iron Binding Capacity (test code = 2500-7) 587 261-4 78 H [facility] Iron Tehtfbpjet8927-89-41 18:07:00* Test Item Value Reference Range Interpretation Comments Percent Iron Saturation (test code = 2502-3) 5 15-50 L [facility]2019-08-21 18:07:00* Test Item Value Reference Range Interpretation Comments Transferrin (test code = 3034-6) 419 174-364 H [facility]2019-08-21 18:07:00* Test Item Value Reference Range Interpretation Comments Iron Level (test code = 2498-4) 28 65-175 L [facility] Iron Binding Iolafuaz1843-53-49 18:07:00* Test Item Value Reference Range Interpretation Comments Total Iron Binding Capacity (test code = 2500-7) 587 261-4 78 H [facility] Iron Aexhyvpxwo6283-37-24 18:07:00* Test Item Value Reference Range Interpretation Comments Percent Iron Saturation (test code = 2502-3) 5 15-50 L [facility] DallasTransferrin2019-08-21 18:07:00* Test Item Value Reference Range Interpretation Comments Transferrin (test code = 3034-6) 419 174-364 H [facility]2019-08-21 18:07:00* Test Item Value Reference Range Interpretation Comments Iron Level (test code = 2498-4) 28 65-175 L [facility] Iron Binding Mrpxmldb2165-59-67 18:07:00* Test Item Value Reference Range Interpretation Comments Total Iron Binding Capacity (test code = 2500-7) 587 261-4 78 H [facility] DallasPercent Iron Gbpixayqfe6900-49-50 18:07:00* Test Item Value Reference Range Interpretation Comments Percent Iron Saturation (test code = 2502-3) 5 15-50 L [facility] DallasTransferrin2019-08-21 18:07:00* Test Item Value Reference Range Interpretation Comments Transferrin (test code = 3034-6) 419 174-364 H [facility] DallasBASIC METABOLIC EYDIA4363-67-93 12:59:00 * Test Item Value Reference Range [...] CA) 8.8 mg/dL 8.5-10.1 N HEPATIC FUNCTION GBJRF3434-84-13 12:59:00* Test Item Value Reference Range Interpretation [...] reference range due to change in reagent. WQGIFDUD-V1399-47-20 12:59:00* Test Item Value Reference Range Interpretation Comments TROPONIN-I (test code = TROPI) <0.015 ng/mL 0-0.045 N TSCTSUR6742-20-58 12:55:00* Test Item Value Reference Range Interpretation Comments AMMONIA (test code = AMM) 21 umol/L 11-32 N BASIC METABOLIC XCBBZ7198-52-97 12:48:00* Test Item Value Reference Range Interpretation [...] code = CA) mg/dL 8.5-10.1 HEPATIC FUNCTION VLJDY6975-50-45 12:48:00* Test Item Value Reference Range Interpretation [...] TOTAL (test code = ALKP) IUnit/L 45-117 CCKFLIHY-I8974-35-20 12:48:00* Test Item Value Reference Range Interpretation Comments TROPONIN-I (test code = TROPI) ng/mL 0-0.045 CBC W/O DQGJ7627-32-84 12:46:00* Test Item Value Reference Range Interpretation [...] fL 6.7-11.0 N - XR CHEST 1 C1330-38-86 11:02:00 FAX: Giuliana Ames [phone] [place]: B St: [facility] FAX: Mulugeta Hadley DO Name: CARLITO ROCK [facility] : 1940 Age/S: 78/M Marissa Carter [facility] Unit #: [id number] Loc: [place] [address] Phys: Mulugeta Hadley DO Acct: [id number] Dis Date: Status: REG ER PHONE #: [phone] Exam Date: 12/04/2018 1051 FAX #: [phone] Reason: Altered Mental Status EXAMS: CPT CODE: [id number] XR CHEST 1 V 66384 HISTORY: Confusion. COMPARISON: X-ray from March 15, 2005. No acute infiltrates, effusion or congestion is noted. Hyperinflation. The cardiac and mediastinal silhouette are within normal limits. IMPRESSION: No acute infiltrates, effusion or congestion. at 1102 Reported and signed by: Alphonso Gonzalez M.D. CC: Giuliana Miguel MD; Mulugeta Hadley DO Technologist: HENRY CASTILLO JR Trnscrd Date/Time/By: 12/04/2018 (3688) : By: [email or web address] Orig Print D/T: S: 12/04/2018 (5997) PAGE 1 Signed Report URINALYSIS AHRUNCJE3964-38-86 11:01:00* Test Item Value Reference Range Interpretation [...] #/LPF FEW Urine Source? Clean CatchCTA ABD/PEL/RUN LDG6463-73-66 07:45:00 [place] [address] Patient Name: CARLITO ROCK MR #: [id number] : 1940 Age/Sex: 77/M Req #: [id number] Adm Physician: Ordered by: LEOLA PONCE MD Report #: [id number] Location: CT Room/Bed: Procedure: [id number] CT/CTA ABD/PEL/RUN OFF Exam Date: 10/30/17 Exam [...] celiac, S MA, and JASMIN. 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 Patent nevin ateral [...] LEOLA PONCE MD MRI SHOULDER LEFT WO [place] [address] Patient Name: CARLITO ROCK MR #: [id number] : 1940 Age/Sex: 76/M Req #: [id number] Adm Physician : Ordered by: REDDY HERRERA MD Report #: [id number] Location: M [place] Room/Bed: Procedure: [id number] MRI/MRI SHOULDER L EFT WO Exam Date: [...] TO: REDDY HERRERA MD SHOULDER LEFT COMPLETE [place] [address] Patient Name: CARLIOT ROCK MR #: [id number] : 1940 Age/Sex: 76/M Req #: [id number] Adm Physician: Ordered by: REDDY HERRERA MD Report #: [id number] Location: [facility] Room/Bed: Procedure: [id number] DX/SHOULDER LEFT C OMPLETE Exam Date: 01/20/17 Exam Time: 1210 RE PORT STATUS: Signed PROCEDURE: SHOULDER LEFT COMPLETE TECHNIQUE: Manager Talent Management al and external rotation AP views left [...]
--- OUTSIDE RECORDS SUMMARY | 2020-02-01 13:08 | XMS REPORT | Continuity of Care Document ---
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 09/07/2018 [facility] Diabetes Mellitus Active 06/12/2013 [facility] Hypertension Active 06/12/2013 [facility] Hyperlipidemia Active 06/12/2013 [facility] Medications Medication Details Route Status Patient Instructions Ordering Provider Order Date Source Simvastatin 80 MG Oral Tablet (Active) Active [facility] GlipiZIDE XL 10 MG Oral Tablet Extended Release 24 Orderick r (Active) Active [facility] Losartan Potassium 50 MG Oral Tablet [...] drug a llergy drug aller gy Active [facility] Immunizations Immunization Date Given Site Status Last Updated Comments Source Influenza completed [facility] Td completed [facility] Results No Data Provided for This [...] johnnie relating to chronic denervation/neuropathic change. SL: [id number] 09/21/2018 [facility] Consultation Notes No Data Provided for This Section Discharge Summaries No Data Provided for This Section History and Physicals No Data Provided for This Section Vital Signs No Data Provided for This Section Encounters Location Location Details Encounter Type Encounter Number Reason For Visit Attending Provider ADM Date DC Date Status Source AUDIT [id number] 06/12/2013 06/12/2013 [facility] [id number] Etienne Emerson 09/21/2018 09/22/2018 [facility] Procedures No Data Provided for This Section Assessment and Plan No Data Provided for This Section Plan of Care No Data Provided for This Section Social History Social History Date Source No data available for this section 09/22/2018 [facility] Marital History - Currently (Active) Alcohol Use (Active) No History of Drug Use (Denied) Never A Smoker (Active) Occupation: Retired (Active) 06/12/2013 [facility] Family History Value Date S ource Family history of Alzheimer Disease (Active) Paternal history of Diabetes Mellitus (V18.0); (Active) Maternal history of Hypertension (V17.49); (Active) Maternal history of Colon Cancer (V16.0); (Active) Family history of Asthma (V17.5); (Active) Family history of Depression (Active) 06/12/2013 [facility] Advance Directives Order Name Results Value Date Source Advance Directives Advance Dir ectives No Advance Directives available. 06/12/2013 [facility] Functional Status No Data Provided for This Section
--- OUTSIDE RECORDS SUMMARY | 2020-02-01 13:09 | XMS REPORT | Continuity of Care Document ---
Author Author [facility] t Organization [facility] Address [address] [place] [address] Phone Unavailable Care Team Providers Care Ross Carrier Driver Name Role Phone MD Shelly PONCE MD PCP Shelly PONCE Attphys Unavailable Fahad Emerson Attphys Cristiana HERRERA Attphys Unavailable Shelly PONCE Admphys Unavailable Payers Payer Name Policy Type Policy Number Effective Date Expiration Date dez [facility] [id number] 2016 00:00:00 [facility] Problems Condition Name Condition Details Condition Category Status Onset Date Resolution Date Last Treatment Date Treating Clinician Comments Source DX: ULCER LT 1ST DX: ULCER LT 1ST Active 09/07/2018 [facility] Active 2018-09-07 00:00:00 2018-09-21 18:42:00 [facility] Elevated liver function tests Elevated LFTs Problem Active 201 08-26-17 00:00:00 [facility] Fever Fever Problem Active 2015-04-03 00:00:00 [facility] Hyponatremia Hyponatremia Problem Active 2015-04-03 00:00:00 [facility] Increased serum lipase level Problem Active 2015-04-03 00:00:00 [facility] Diabetes Mellitus Diab etes Mellitus Active 06/12/2013 [facility] Problem Active 2013-06-12 17:54:05 M emorirao Saldana Hypertension Hype rtension Active 06/12/2013 [facility] Problem Active 2013-06-12 17:54:05 Meet Yiann Hyperlipidemia Hype rlipidemia Active 06/12/2013 [facility] Problem Active 2013-06-12 17:54:05 M linda Yiann Abdominal pain Abdominal pain Problem Active [facility] Hepatic cirrhosis Cirrhosis Problem Active [facility] Nausea Nausea Problem Active [facility] Cerebrovascular accident (CVA) CVA (cerebral vascular accident) Pro blem Active [facility] Volume depletion Problem Active [facility] Allergies, Adverse Reactions, Alerts Allergy Name Allergy Type Status Severity Reaction(s) Onset Date Inacti ve Date Treating Clinician Comments Source No Known Allergies DA Active U 2017-04-12 00:00:00 [facility] No Known Drug Allergies No Known Drug Allergies Active [facility] Family History Family Member Diagnosis Comments Start Date Stop Date Source Unknown Family Member Family History 2013-06-12 17:54:05 2 17:54:05 [facility] Social History Social Habit Start Date Stop Date Quantity Comments Source Social History 2013-06-12 17:54:05 2013-06-12 17:54:05 [facility] Sex Assigned At 1940 00:00:00 1940 00:00:00 Male [facility] Medications Ordered Medication Name Filled Medication Name Start Date Stop Da te Current Medication? Ordering Clinician Indication Dosage Frequency Signature (SIG) Comments Components Source Ciprofloxacin Hcl Ciprofloxacin Hcl 2015-04-07 11:25:00 2018-12-05 00 :00:00 No 500 Twice A Day [facility] Metronidazole Metronidazole 2015-04-07 11:25:00 2018-12-05 00:00:00 No 500 Three Times A Day [facility] Ondansetron (Zofran Odt) 4 Mg TAB.RAPDIS Ondansetron ( Zofran Odt) 4 Mg TAB.RAPDIS 2015-04-07 11:25:00 2018-12-05 00:00:00 No 4 Every 6 Hours as needed for Nausea And Vomiting [facility] Simvastatin 80 MG Oral Tablet 2013-06-12 17:54:05 [...] (Plavix) 75 Mg TABLET Yes 75 Daily [facility] Insulin Aspart (Novolog) 100 Units/1 Ml INJ Insulin As part (Novolog) 100 Units/1 Ml INJ Yes 30 Twice Daily With Meals [facility] Metformin Hcl Metformin Hcl Yes 1000 Twice A Day [facility] Multivitamin (Multi-Vitamin Daily) 1 Each TABLET Multi vitamin (Multi-Vitamin Daily) 1 Each TABLET Yes [facility] Rosuvastatin Calcium (Crestor) 10 Mg TAB Rosuvastatin Calcium (Crestor) 10 Mg TAB Yes 20 Daily [facility] Venlafaxine Hcl Venlafaxine Hcl Yes 75 Daily [facility] Aspirin (Aspir 81) 81 Mg TABLET. Aspirin (Aspir 81) 81 Mg TABL ET. 2019-05-30 00:00:00 No 81 Daily [facility] Clopidogrel Bisulfate (Plavix) 75 Mg TABLET Clopidogre l Bisulfate (Plavix) 75 Mg TABLET 2019-05-30 00:00:00 No 75 Daily [facility] Cyanocobalamin (Vitamin B-12) 1,000 Mcg TAB Cyanocobal simeon (Vitamin B-12) 1,000 Mcg TAB 2019-05-27 00:00:00 No 1000 Daily [facility] Insulin Lispro (Humalog) 100 Unit/1 Ml CARTRIDGE Insul in Lispro (Humalog) 100 Unit/1 Ml CARTRIDGE 2019-05-27 00:00:00 No Before Meals And At Bedtime [facility] Ciprofloxacin Hcl (Cipro) 500 Mg TABLET Ciprofloxacin Hcl (C ipro) 500 Mg TABLET 2019-04-18 00:00:00 No 500 Every 12 Hours [facility] Diphenoxylate Hcl/Atropine (Lomotil Tablet) 1 Each TAB LET Diphenoxylate Hcl/Atropine (Lomotil Tablet) 1 Each TABLET 2019-04-18 00:00:00 No 1 Every 6 Hours as needed for Diarrhea [facility] Ozempic Ozempic 2018-12-22 00:00:00 No 1 Q7days fo r Dm [facility] Glipizide (Glucotrol) 10 Mg TABLET Glipizide (Glucotrol) 10 Mg T ABLET 2018-12-05 00:00:00 No 10 Daily [facility] Insulin Lisp Protam/Lisp Human (Humalog Mix 75-25 Vial ) 100 Units/Ml ML Insulin Lisp Protam/Lisp Human (Humalog Mix 75-25 Vial) 100 Units/Ml ML 2018-12-05 00:00:00 No [facility] Losartan Potassium Losartan Potassium 2018-12-05 00:00:00 No 50 Daily [facility] Simvastatin Simvastatin 2018-12-05 00:00:00 No 40 T katie At 9:00PM [facility] Cephalexin Monohydrate (Keflex) 500 Mg CAPSULE Cephale jaime Monohydrate (Keflex) 500 Mg CAPSULE 2015-04-07 00:00:00 No 500 Twice A D ay [facility] Glucotrol Glucotrol 2015-04-02 00:00:00 No [facility] Unk Htn Pill Unk Htn Pill 2015-04-02 00:00:00 No [facility] Vital Signs Vital Name Observation Time Observation Value Comments Source Body Temperature 2019-09-04 11:32:00 98.3 [degF] [facility] Procedures Procedure Date / Time Performed Performing Clinician Sourliliana e EGD BIOPSY SINGLE/MULTIPLE 2019-09-04 00:00:00 [facility] EGD VARICES LIGATION 2019-09-04 00:00:00 [facility] EGD BIOPSY SINGLE/MULTIPLE 2019-05-27 00:00:00 C [facility] EGD VARICES LIGATION 2019-05-27 00:00:00 [facility] BLOOD TRANSFUSION SERVICE 2019-05-23 00:00:00 CH I [facility] CT angiography of neck 2019-04-19 00:00:00 SARA OLIVAS [facility] Computed tomography angiography of brain 2019-04-19 00:00:00 SARA DOYLE [facility] Computed tomography of brain without radiopaque contrast 00:00:00 LUCIA SMYTH [facility] Magnetic resonance imaging of brain without contrast 2019-04 00:00:00 DEVANTE COLLINS [facility] Encounters Start Date/Time End Date/Time Encounter Type [facility] Care Department Encounter ID Source 2019-11-29 14:58:00 2019-12-16 23:59:00 [facility] [id number] [facility] 2019-11-08 10:42:00 2019-11-15 23:59:00 Discharged Recurring [facility] [id number] [facility] 2019-09-04 08:42:00 2019-09-04 08:42:00 Registered Surgical Day Care [facility] [id number] [facility] 2019-06-24 15:17:00 2019-06-24 15:17:00 Registered Clinic [facility] [id number] [facility] 2019-05-20 13:33:00 2019-06-15 22:59:00 Discharged Recurring [facility] [id number] [facility] 2019-05-27 17:50:00 2019-05-30 13:49:00 Discharged Inpatient (obs) [facility] [id number] [facility] 2019-05-23 09:05:00 2019-05-23 15:23:00 Departed Emergency Room [facility] [id number] [facility] 2019-05-02 14:44:00 2019-05-17 22:59:00 Discharged Recurring [facility] [id number] [facility] 2019-04-19 09:04:00 2019-04-20 14:48:00 Discharged Inpatient 1 KYLE PONCEAHAM [facility] [id number] [facility] 2019-03-21 13:23:00 2019-04-16 22:59:00 Discharged Recurring [facility] [id number] [facility] 2018-12-19 08:48:00 2018-12-22 08:32:00 [facility] [id number] 2018-12-05 16:32:00 2018-12-08 12:20:00 Discharged Inpatient (obs) 3 [facility]CEAH[facility] [id number] [facility] 2018-09-21 18:34:00 2018-09-21 23:59:00 Outpatient Marianela Emerson [facility]SE [id number] 2018-09-21 18:34:00 2018-09-21 18:34:00 Outpatient [id number] 2013-06-12 11:54:2013-06-12 11:54:05 [id number] Results Test Description Test Time Test Comments Results Result Comments Source Capillary blood glucose measurement by glucometer (mas s/volume) 2019-09-04 11:47:00 Test Item Bedside Glucose (test code = 00422-5) 218 70-120 Meter ID: [id number] [facility] glucose measurement by glucometer (mass/volume)2019-09-04 11:47:00* Test Item Value Reference Range Interpretation Comments Bedside Glucose (test code = 93229-5) 218 70-120 Meter ID: [id number] [facility]or[facility] procedure less than one hour lqfzacvd3426-42-30 15:45:00* Test Item Value Reference Range Interpretation [...] complexity tests.Testing performed by Clinical Pathology Labor [id number] [phone] Director: Etienne Jeffery M.D.CLIA # [id number] [facility] Fluoroscopic procedure less than one hour mauaficl9669-04-39 15:45:00* Test Item Value Reference Range Interpretation [...] complexity tests.Testing performed by [facility] Labor [address] [phone] Director: Etienne Jeffery M.D.CLIA # [id number] [facility]roeBlood leukocytes automated count (number/volume)2019-08-30 15:27:00* Test Item Value Reference Range Interpretation Comments White Blood Count (test code = 6690-2) 6.13 4.8-10.8 [facility] erythrocytes automated count (number/volume)2019-08-30 15:27:00* Test Item Value Reference Range Interpretation Comments Red Blood Count (test code = 789-8) 3.92 4.3-5.7 [facility] hemoglobin measurement (moles/volume)2019-08-30 15:27:00* Test Item Value Reference Range Interpretation Comments Hemoglobin (test code = 60115-9) 11.2 14.0-18.0 [facility]roeAutomated blood hematocrit (volume fraction)2019-08-30 15:27:00* Test Item Value Reference Range Interpretation Comments Hematocrit (test code = 4544-3) 35.8 38.2-49.6 [facility]roeAutomated erythrocyte mean corpuscular [id number] 15:27:00* Test Item Value Reference Range Interpretation Comments Mean Corpuscular Volume (test code = 787-2) 91.3 81-99 [facility]roeAutomated erythrocyte mean corpuscular hemoglobin (mass per erythrocyte)2019-08-30 15:27:00* Test Item Value Reference Range Interpretation Comments Mean Corpuscular Hemoglobin (test code = 785-6) 28.6 28-32 [facility]roeAutomated erythrocyte mean corpuscular hemoglobin concentration measurement (mass/volume)2019-08-30 15:27:00* Test Item Value Reference Range Interpretation Comments Mean Corpuscular Hemoglobin Concent (test code = 786-4) 31.3 31-35 [facility]roeRDW ShbSp-Rcy2032-19-15 15:27:00* Test Item Value Reference Range Interpretation Comments Red Cell Distribution Width (test code = 95970-3) 16.1 11.7 -14.4 [facility]roeAutomated blood platelet count (count/volume)2019-08-30 15:27:00* Test Item Value Reference Range Interpretation Comments Platelet Count (test code = 777-3) 121 140-360 [facility]roeAutomated blood segmented neutrophil count as percentage of total ifvtokvrrk2087-74-75 15:27:00* Test Item Value Reference Range Interpretation Comments Neutrophils (%) (Auto) (test code = 03771-9) 28.4 38.7-80.0 [facility]roeAutomated blood lymphocyte count as percentage ot total jlpeixjfec5992-27-63 15:27:00* Test Item Value Reference Range Interpretation Comments Lymphocytes (%) (Auto) (test code = 736-9) 54.8 18.0-39.1 [facility]roeAutomated blood monocyte count as percentage of total tbsaxrskej7100-23-24 15:27:00* Test Item Value Reference Range Interpretation Comments Monocytes (%) (Auto) (test code = 5905-5) 8.0 4.4-11.3 [facility]roeAutomated blood eosinophil count as percentage of total zpzhhtnoyu7709-11-37 15:27:00* Test Item Value Reference Range Interpretation Comments Eosinophils (%) (Auto) (test code = 713-8) 7.8 0.0-6.0 [facility]roeAutomated blood basophil count as percentage of total qvjwghenpu1365-22-13 15:27:00* Test Item Value Reference Range Interpretation Comments Basophils (%) (Auto) (test code = 706-2) 1.0 0.0-1.0 [facility]roeFluoroscopic procedure less than one hour tilxlgbu3380-82-02 15:27:00* Test Item Value Reference Range Interpretation Comments IM GRANULOCYTES % (test code = IM GRANULOCYTES %) 0.0 0.0- 1.0 [facility]roe[facility] blood neutrophil count 2019-08-30 15:27:00* Test Item Value Reference Range Interpretation Comments Neutrophils # (Auto) (test code = 751-8) 1.7 2.1-6.9 [facility] lymphocytes count (number/volume) 2019-08-30 15:27:00* Test Item Value Reference Range Interpretation Comments Lymphocytes # (Auto) (test code = 21174-5) 3.4 1.0-3.2 [facility]roeBlood monocytes automated count (number/volume)2019-08-30 15:27:00* Test Item Value Reference Range Interpretation Comments Monocytes # (Auto) (test code = 742-7) 0.5 0.2-0.8 [facility]ated blood eosinophil count 2019-08-30 15:27:00* Test Item Value Reference Range Interpretation Comments Eosinophils # (Auto) (test code = 711-2) 0.5 0.0-0.4 [facility]roeAutomated blood basophil count (count/volume)2019-08-30 15:27:00* Test Item Value Reference Range Interpretation Comments Basophils # (Auto) (test code = 704-7) 0.1 0.0-0.1 [facility]roeFluoroscopic procedure less than one hour ecmcvexi1333-17-63 15:27:00* Test Item Value Reference Range Interpretation Comments Absolute Immature Granulocyte (auto (anurag t code = Absolute Immature Granulocyte (auto) 0 0-0.1 [facility]roeProthrombin time (PT) in platelet poor plasma by coagulation [id number] 15:27:00* Test Item Value Reference Range Interpretation Comments Prothrombin Time (test code = 5902-2) 13.1 11.9-14.5 [facility]roeINR in Platelet poor plasma by Coagulation iwflm9976-33-58 15:27:00* Test Item Value Reference Range Interpretation Comments Prothromb Time International Ratio (test code = 6301-6) 0.94 Oral Anticoagulant Therapy INR Values:1. Low Intensity Therapy 1.5 - 2.02 . Moderate Intensity Therapy 2.0 - 3.03. High Intensity Therapy(1) 2.5 - 3. 54. High Intensity Therapy(2) 3.0 - 4.05. Panic Value INR > 5.0 [facility]roeActivated partial thromboplastin time (aPTT) in platelet poor plasma by coagulation dtnzx1915-26-87 15:27:00* Test Item Value Reference Range Interpretation Comments Activated Partial Thromboplast Time (test code = 53310-5) 32.6 23.8-35.[address] plasma sodium measurement (moles/volume)2019-08-30 15:27:00* Test Item Value Reference Range Interpretation Comments Sodium Level (test code = 2951-2) 138 136-[address] [facility] [facility] or plasma potassium measurement (moles/volume)2019-08-30 15:27:00* Test Item Value Reference Range Interpretation Comments Potassium Level (test code = 2823-3) 4.9 3.5-5.[address] [facility] or plasma chloride measurement (moles/volume)2019-08-30 15:27:00* Test Item Value Reference Range Interpretation Comments Chloride Level (test code = 2075-0) 104 98-[address] [facility] or plasma carbon dioxide, total measurement (moles/volume)2019-08-30 15:27:00* Test Item Value Reference Range Interpretation Comments Carbon Dioxide Level (test code = 2028-9) 25 22-[address] [facility]um or plasma anion sxy9202-07-03 15:27:00* Test Item Value Reference Range Interpretation Comments Anion Gap (test code = 99331-7) 13.9 8-[address] [facility] or plasma urea nitrogen measurement (mass/volume)2019-08-30 15:27:00* Test Item Value Reference Range Interpretation Comments Blood Urea Nitrogen (test code = 3094-0) 12 7-[address] [facility] or plasma creatinine measurement (mass/volume)2019-08-30 15:27:00* Test Item Value Reference Range Interpretation Comments Creatinine (test code = 2160-0) 1.13 0.72-1.[address] [facility] or plasma urea nitrogen/creatinine mass [id number] 15:27:00* Test Item Value Reference Range Interpretation Comments BUN/Creatinine Ratio (test code = 3097-3) 11 6-25 [facility]roeEstimated glomerular filtration rate (GFR) ynermwqqabxnt3177-16-35 15:27:00* Test Item Value Reference Range Interpretation Comments Estimat Glomerular Filtration Rate (test code = 489991245) > 60 >60 Ranges were taken from the National Kidney Disease Education Program and the [facility] Kidney Foundation literature.Reference ranges:60 or greater: Ximlzl58-82 ( for 3 consecutive months): Chronic kidney disease 15 or less: Kidney failureHCA Houston Healthcare ConroeGlucose xtpcvlbnykv0237-20-43 15:27:00* Test Item Value Reference Range Interpretation Comments Glucose Level (test code = FBS9904) 308 74-[address] [facility] or plasma calcium measurement (mass/volume)2019-08-30 15:27:00* Test Item Value Reference Range Interpretation Comments Calcium Level (test code = 26475-0) 9.6 8.4-10.[address] [facility] or plasma total bilirubin measurement (mass/volume)2019-08-30 15:27:00* Test Item Value Reference Range Interpretation Comments Total Bilirubin (test code = 1975-2) 0.6 0.2-1.2 [facility]roeFluoroscopic procedure less than one hour yjtyfefm4656-63-38 15:27:00* Test Item Value Reference Range Interpretation Comments Aspartate Amino Transf (AST/SGOT) (test code = Aspartate Amino Transf (AST/SGOT)) 37 5-[address] [facility]um or plasma alanine aminotransferase measurement (enzymatic activity/volume)2019-08-30 15:27:00* Test Item Value Reference Range Interpretation Comments Alanine Aminotransferase (ALT/SGPT) (test code = 1742-6) 37 0-[address] [facility] or plasma protein measurement (mass/volume)2019-08-30 15:27:00* Test Item Value Reference Range Interpretation Comments Total Protein (test code = 2885-2) 6.3 6.5-8.[address] [facility] or plasma albumin measurement (mass/volume)2019-08-30 15:27:00* Test Item Value Reference Range Interpretation Comments Albumin (test code = 1751-7) 3.4 3.5-5.0 [facility]roePlasma globulin measurement (mass/volume) 2019-08-30 15:27:00* Test Item Value Reference Range Interpretation Comments Globulin (test code = 55396-6) 2.9 2.3-3.[address] [facility] or plasma albumin/globulin mass jltfo1765-53-31 15:27:00* Test Item Value Reference Range Interpretation Comments Albumin/Globulin Ratio (test code = 1759-0) 1.2 0.8-2.[address] [facility]um or plasma alkaline phosphatase measurement (enzymatic activity/volume)2019-08-30 15:27:00* Test Item Value Reference Range Interpretation Comments Alkaline Phosphatase (test code = 6768-6) 104 40-150 [facility]roeBlood leukocytes automated count (number/volume)2019-08-30 15:27:00* Test Item Value Reference Range Interpretation Comments White Blood Count (test code = 6690-2) 6.13 4.8-10.8 [facility] erythrocytes automated count (number/volume)2019-08-30 15:27:00* Test Item Value Reference Range Interpretation Comments Red Blood Count (test code = 789-8) 3.92 4.3-5.7 [facility]roeBlood hemoglobin measurement (moles/volume)2019-08-30 15:27:00* Test Item Value Reference Range Interpretation Comments Hemoglobin (test code = 13113-8) 11.2 14.0-18.0 [facility]roeAutomated blood hematocrit (volume fraction)2019-08-30 15:27:00* Test Item Value Reference Range Interpretation Comments Hematocrit (test code = 4544-3) 35.8 38.2-49.6 [facility]roeAutomated erythrocyte mean corpuscular xpsdqj8539-09-80 15:27:00* Test Item Value Reference Range Interpretation Comments Mean Corpuscular Volume (test code = 787-2) 91.3 81-99 [facility]roeAutomated erythrocyte mean corpuscular hemoglobin (mass per erythrocyte)2019-08-30 15:27:00* Test Item Value Reference Range Interpretation Comments Mean Corpuscular Hemoglobin (test code = 785-6) 28.6 28-32 [facility]roeAutomated erythrocyte mean corpuscular hemoglobin concentration measurement (mass/volume)2019-08-30 15:27:00* Test Item Value Reference Range Interpretation Comments Mean Corpuscular Hemoglobin Concent (test code = 786-4) 31.3 31-35 [facility]roeRDW ZtsMe-Mfr0565-22-15 15:27:00* Test Item Value Reference Range Interpretation Comments Red Cell Distribution Width (test code = 86758-9) 16.1 11.7 -14.4 [facility]roeAutomated blood platelet count (count/volume)2019-08-30 15:27:00* Test Item Value Reference Range Interpretation Comments Platelet Count (test code = 777-3) 121 140-360 [facility] ConroeAutomated blood segmented neutrophil count as percentage of total flyhmldagt9353-03-70 15:27:00* Test Item Value Reference Range Interpretation Comments Neutrophils (%) (Auto) (test code = 07323-3) 28.4 38.7-80.0 [facility] ConroeAutomated blood lymphocyte count as percentage ot total unwabybuey5197-12-78 15:27:00* Test Item Value Reference Range Interpretation Comments Lymphocytes (%) (Auto) (test code = 736-9) 54.8 18.0-39.1 [facility]roeAutomated blood monocyte count as percentage of total vbvivcultz9236-59-71 15:27:00* Test Item Value Reference Range Interpretation Comments Monocytes (%) (Auto) (test code = 5905-5) 8.0 4.4-11.3 [facility]roeAutomated blood eosinophil count as percentage of total ivrlejbspk6572-61-92 15:27:00* Test Item Value Reference Range Interpretation Comments Eosinophils (%) (Auto) (test code = 713-8) 7.8 0.0-6.0 [facility]roeAutomated blood basophil count as percentage of total smmdapesei6110-70-83 15:27:00* Test Item Value Reference Range Interpretation Comments Basophils (%) (Auto) (test code = 706-2) 1.0 0.0-1.0 [facility]roeFluoroscopic procedure less than one hour kayroguf5080-21-32 15:27:00* Test Item Value Reference Range Interpretation Comments IM GRANULOCYTES % (test code = IM GRANULOCYTES %) 0.0 0.0- 1.0 [facility] ConroeAutomated blood neutrophil count 2019-08-30 15:27:00* Test Item Value Reference Range Interpretation Comments Neutrophils # (Auto) (test code = 751-8) 1.7 2.1-6.9 [facility]roeBlood lymphocytes count (number/volume) 2019-08-30 15:27:00* Test Item Value Reference Range Interpretation Comments Lymphocytes # (Auto) (test code = 24441-6) 3.4 1.0-3.2 [facility] monocytes automated count (number/volume)2019-08-30 15:27:00* Test Item Value Reference Range Interpretation Comments Monocytes # (Auto) (test code = 742-7) 0.5 0.2-0.8 [facility] ConroeAutomated blood eosinophil count 2019-08-30 15:27:00* Test Item Value Reference Range Interpretation Comments Eosinophils # (Auto) (test code = 711-2) 0.5 0.0-0.4 [facility] ConroeAutomated blood basophil count (count/volume)2019-08-30 15:27:00* Test Item Value Reference Range Interpretation Comments Basophils # (Auto) (test code = 704-7) 0.1 0.0-0.1 [facility] ConroeFluoroscopic procedure less than one hour unquymhk9202-77-03 15:27:00* Test Item Value Reference Range Interpretation Comments Absolute Immature Granulocyte (auto (anurag t code = Absolute Immature Granulocyte (auto) 0 0-0.1 [facility] ConroeProthrombin time (PT) in platelet poor plasma by coagulation dficx6574-46-29 15:27:00* Test Item Value Reference Range Interpretation Comments Prothrombin Time (test code = 5902-2) 13.1 11.9-14.5 [facility] ConroeINR in Platelet poor plasma by Coagulation vqhtg1131-78-72 15:27:00* Test Item Value Reference Range Interpretation Comments Prothromb Time International Ratio (test code = 6301-6) 0.94 Oral Anticoagulant Therapy INR Values:1. Low Intensity Therapy 1.5 - 2.02 . Moderate Intensity Therapy 2.0 - 3.03. High Intensity Therapy(1) 2.5 - 3. 54. High Intensity Therapy(2) 3.0 - 4.05. Panic Value INR > 5.0 [facility] ConroeActivated partial thromboplastin time (aPTT) in platelet poor plasma by coagulation ekgpg8482-48-00 15:27:00* Test Item Value Reference Range Interpretation Comments Activated Partial Thromboplast Time (test code = 01069-1) 32.6 23.8-35.[address] [facility] or plasma sodium measurement (moles/volume)2019-08-30 15:27:00* Test Item Value Reference Range Interpretation Comments Sodium Level (test code = 2951-2) 138 136-[address] [facility] [facility] Hospitalerum or plasma potassium measurement (moles/volume)2019-08-30 15:27:00* Test Item Value Reference Range Interpretation Comments Potassium Level (test code = 2823-3) 4.9 3.5-5.[address] [facility] Hospitalerum or plasma chloride measurement (moles/volume)2019-08-30 15:27:00* Test Item Value Reference Range Interpretation Comments Chloride Level (test code = 2075-0) 104 98-[address] [facility] Hospitalerum or plasma carbon dioxide, total measurement (moles/volume)2019-08-30 15:27:00* Test Item Value Reference Range Interpretation Comments Carbon Dioxide Level (test code = 2028-9) 25 22-[address] [facility] Hospitalerum or plasma anion owe9655-19-77 15:27:00* Test Item Value Reference Range Interpretation Comments Anion Gap (test code = 49108-7) 13.9 8-[address] [facility] Hospitalerum or plasma urea nitrogen measurement (mass/volume)2019-08-30 15:27:00* Test Item Value Reference Range Interpretation Comments Blood Urea Nitrogen (test code = 3094-0) 12 7-[address] [facility] Hospitalerum or plasma creatinine measurement (mass/volume)2019-08-30 15:27:00* Test Item Value Reference Range Interpretation Comments Creatinine (test code = 2160-0) 1.13 0.72-1.[address] [facility] Hospitalerum or plasma urea nitrogen/creatinine mass xtoos9948-78-41 15:27:00* Test Item Value Reference Range Interpretation Comments BUN/Creatinine Ratio (test code = 3097-3) 11 6-25 [facility] ConroeEstimated glomerular filtration rate (GFR) alueikkdjoxju2071-30-99 15:27:00* Test Item Value Reference Range Interpretation Comments Estimat Glomerular Filtration Rate (test code = 142056426) > 60 >60 Ranges were taken from the National Kidney Disease Education Program and the [facility] Kidney Foundation literature.Reference ranges:60 or greater: Iknvgf62-16 ( for 3 consecutive months): Chronic kidney disease 15 or less: Kidney failureHCA Houston Healthcare ConroeGlucose xmdpkxpdzph0531-71-09 15:27:00* Test Item Value Reference Range Interpretation Comments Glucose Level (test code = ICS9279) 308 74-[address] [facility] Hospitalerum or plasma calcium measurement (mass/volume)2019-08-30 15:27:00* Test Item Value Reference Range Interpretation Comments Calcium Level (test code = 85610-4) 9.6 8.4-10.[address] [facility] Hospitalerum or plasma total bilirubin measurement (mass/volume)2019-08-30 15:27:00* Test Item Value Reference Range Interpretation Comments Total Bilirubin (test code = 1975-2) 0.6 0.2-1.2 [facility] ConroeFluoroscopic procedure less than one hour ihskgidn1906-68-38 15:27:00* Test Item Value Reference Range Interpretation Comments Aspartate Amino Transf (AST/SGOT) (test code = Aspartate Amino Transf (AST/SGOT)) 37 5-[address] [facility] Hospitalerum or plasma alanine aminotransferase measurement (enzymatic activity/volume)2019-08-30 15:27:00* Test Item Value Reference Range Interpretation Comments Alanine Aminotransferase (ALT/SGPT) (test code = 1742-6) 37 0-[address] [facility] Hospitalerum or plasma protein measurement (mass/volume)2019-08-30 15:27:00* Test Item Value Reference Range Interpretation Comments Total Protein (test code = 2885-2) 6.3 6.5-8.[address] [facility] Hospitalerum or plasma albumin measurement (mass/volume)2019-08-30 15:27:00* Test Item Value Reference Range Interpretation Comments Albumin (test code = 1751-7) 3.4 3.5-5.0 [facility] ConroePlasma globulin measurement (mass/volume) 2019-08-30 15:27:00* Test Item Value Reference Range Interpretation Comments Globulin (test code = 60485-1) 2.9 2.3-3.[address] [facility] Hospitalerum or plasma albumin/globulin mass ypyuy4276-47-99 15:27:00* Test Item Value Reference Range Interpretation Comments Albumin/Globulin Ratio (test code = 1759-0) 1.2 0.8-2.[address] [facility] Hospitalerum or plasma alkaline phosphatase measurement (enzymatic activity/volume)2019-08-30 15:27:00* Test Item Value Reference Range Interpretation Comments Alkaline Phosphatase (test code = 6768-6) 104 40-150 [facility] Ydsuing3934-16-31 12:20:00* Test Item Value Reference Range Interpretation Comments Bedside Glucose (test code = 80664-7) 164 70-120 H Meter ID: [id number] [facility] Glucose 2019-05-30 12:20:00* Test Item Value Reference Range Interpretation Comments Bedside Glucose (test code = 67745-9) 164 70-120 H Meter ID: [id number] Houston Healthcare ConroeDifferential Total Cells Yyfqifh4928-00-67 07:50:00* Test Item Value Reference Range Interpretation Comments Differential Total Cells Counted (test code = Differen tial Total Cells Counted) 100 [facility] ConroeNeutrophils % (Manual)2019-05-30 07:50:00 * Test Item Value Reference Range Interpretation Comments Neutrophils % (Manual) (test code = 50877-0) 62 40-74 [facility] ConroeLymphocytes % (Manual)2019-05-30 07:50:00 * Test Item Value Reference Range Interpretation Comments Lymphocytes % (Manual) (test code = 737-7) 34 19-48 [facility]roeMonocytes % (Manual)2019-05-30 07:50:00* Test Item Value Reference Range Interpretation Comments Monocytes % (Manual) (test code = 744-3) 4 3.4-9.0 [facility] ConroeDifferential Total Cells Counted 2019-05-30 07:50:00* Test Item Value Reference Range Interpretation Comments Differential Total Cells Counted (test code = Differbipin tial Total Cells Counted) 100 [facility]roeNeutrophils % (Manual)2019-05-30 07:50:00 * Test Item Value Reference Range Interpretation Comments Neutrophils % (Manual) (test code = 10687-7) 62 40-74 [facility]roeLymphocytes % (Manual)2019-05-30 07:50:00 * Test Item Value Reference Range Interpretation Comments Lymphocytes % (Manual) (test code = 737-7) 34 19-48 [facility]roeMonocytes % (Manual)2019-05-30 07:50:00* Test Item Value Reference Range Interpretation Comments Monocytes % (Manual) (test code = 744-3) 4 3.4-9.[address] [facility] Hospitalodium Cpqck4637-91-34 05:32:00* Test Item Value Reference Range Interpretation Comments Sodium Level (test code = 2951-2) 141 136-145 [facility]roePotassium Jdkli1526-66-62 05:32:00* Test Item Value Reference Range Interpretation Comments Potassium Level (test code = 2823-3) 3.9 3.5-5.1 [facility] ConroeChloride Slcxq5506-17-65 05:32:00* Test Item Value Reference Range Interpretation Comments Chloride Level (test code = 2075-0) 107 98-107 [facility] ConroeCarbon Dioxide Mmjrg4361-00-07 05:32:00* Test Item Value Reference Range Interpretation Comments Carbon Dioxide Level (test code = 2028-9) 22 22-29 [facility] ConroeAnion Ysv4199-22-63 05:32:00* Test Item Value Reference Range Interpretation Comments Anion Gap (test code = 32649-9) 15.9 8-16 [facility]roeBlood Urea Zbzriwln4798-80-39 05:32:00* Test Item Value Reference Range Interpretation Comments Blood Urea Nitrogen (test code = 3094-0) 19 7-26 [facility] ConroeCreatinine2020-02-13 05:32:00* Test Item Value Reference Range Interpretation Comments Creatinine (test code = 2160-0) 0.82 0.72-1.25 [facility]roeBUN/Creatinine Lxwsd1189-48-16 05:32:00* Test Item Value Reference Range Interpretation Comments BUN/Creatinine Ratio (test code = 3097-3) 23 6- [facility] ConroeEstimat Glomerular Filtration Rate 2019-05-30 05:32:00* Test Item Value Reference Range Interpretation Comments Estimat Glomerular Filtration Rate (test code = 308591019) > 60 >60 Ranges were taken from the National Kidney Disease Education Program and the [facility] Kidney Foundation literature.Reference ranges:60 or greater: Fldvuo24-84 ( for 3 consecutive months): Chronic kidney disease 15 or less: Kidney failureHCA Houston Healthcare ConroeGlucose Ollcj9594-17-64 05:32:00* Test Item Value Reference Range Interpretation Comments Glucose Level (test code = REP6599) 147 74-118 H [facility] ConroeCalcium Pqfdn0525-48-65 05:32:00* Test Item Value Reference Range Interpretation Comments Calcium Level (test code = 28110-4) 8.9 8.4-10.[address] [facility] Hospitalodium Wndlj2090-80-20 05:32:00* Test Item Value Reference Range Interpretation Comments Sodium Level (test code = 2951-2) 141 136-145 [facility]roePotassium Nfzfa9574-14-84 05:32:00* Test Item Value Reference Range Interpretation Comments Potassium Level (test code = 2823-3) 3.9 3.5-5.1 [facility] ConroeChloride Vekxm5227-41-28 05:32:00* Test Item Value Reference Range Interpretation Comments Chloride Level (test code = 2075-0) 107 98-107 [facility] ConroeCarbon Dioxide Iinjb4096-86-14 05:32:00* Test Item Value Reference Range Interpretation Comments Carbon Dioxide Level (test code = 2028-9) 22 22-29 [facility] ConroeAnion Zrv3838-03-09 05:32:00* Test Item Value Reference Range Interpretation Comments Anion Gap (test code = 53547-0) 15.9 8-16 [facility]roeBlood Urea Schemhan2698-83-69 05:32:00* Test Item Value Reference Range Interpretation Comments Blood Urea Nitrogen (test code = 3094-0) 19 7-26 [facility] ConroeCreatinine2020-02-13 05:32:00* Test Item Value Reference Range Interpretation Comments Creatinine (test code = 2160-0) 0.82 0.72-1.25 [facility]roeBUN/Creatinine Ndkwy6309-83-31 05:32:00* Test Item Value Reference Range Interpretation Comments BUN/Creatinine Ratio (test code = 3097-3) 23 6- [facility] ConroeEstimat Glomerular Filtration Rate 2019-05-30 05:32:00* Test Item Value Reference Range Interpretation Comments Estimat Glomerular Filtration Rate (test code = 281492969) > 60 >60 Ranges were taken from the National Kidney Disease Education Program and the [facility] Kidney Foundation literature.Reference ranges:60 or greater: Hdursf55-91 ( for 3 consecutive months): Chronic kidney disease 15 or less: Kidney failureHCA [facility] Healthcare ConroeGlucose Jdcih2576-81-95 05:32:00* Test Item Value Reference Range Interpretation Comments Glucose Level (test code = ZVJ9616) 147 74-118 H [facility] ConroeCalcium Jhcih2582-25-00 05:32:00* Test Item Value Reference Range Interpretation Comments Calcium Level (test code = 70805-1) 8.9 8.4-10.2 [facility] ConroeWhite Blood Gofki3538-65-67 05:07:00* Test Item Value Reference Range Interpretation Comments White Blood Count (test code = 6690-2) 11.59 4.8-10.8 H [facility] ConroeRed Blood Rivzc4912-53-22 05:07:00* Test Item Value Reference Range Interpretation Comments Red Blood Count (test code = 789-8) 3.17 4.3-5.7 L [facility] ConroeHemoglobin2020-02-13 05:07:00* Test Item Value Reference Range Interpretation Comments Hemoglobin (test code = 51443-6) 8.4 14.0-18.0 L [facility] ConroeHematocrit2020-02-13 05:07:00* Test Item Value Reference Range Interpretation Comments Hematocrit (test code = 4544-3) 27.7 38.2-49.6 L [facility] ConroeMean Corpuscular Wjwmio2577-65-54 05:07:00* Test Item Value Reference Range Interpretation Comments Mean Corpuscular Volume (test code = 787-2) 87.4 81-99 [facility] ConroeMean Corpuscular Pjtyglblom4432-69-17 05:07:00* Test Item Value Reference Range Interpretation Comments Mean Corpuscular Hemoglobin (test code = 785-6) 26.5 28-32 L [facility] ConroeMean Corpuscular Hemoglobin Concent 2019-05-30 05:07:00* Test Item Value Reference Range Interpretation Comments Mean Corpuscular Hemoglobin Concent (test code = 786-4) 30.3 31-35 L [facility] ConroeRed Cell Distribution Kgesj6822-01-13 05:07:00* Test Item Value Reference Range Interpretation Comments Red Cell Distribution Width (test code = 20781-9) 14.7 11.7 -14.4 H [facility] ConroePlatelet Mjqxa5544-37-14 05:07:00* Test Item Value Reference Range Interpretation Comments Platelet Count (test code = 777-3) 157 140-360 [facility]roeNeutrophils (%) (Auto)2019-05-30 05:07:00 * Test Item Value Reference Range Interpretation Comments Neutrophils (%) (Auto) (test code = 41018-2) 55.3 38.7-80.0 [facility] ConroeLymphocytes (%) (Auto)2019-05-30 05:07:00 * Test Item Value Reference Range Interpretation Comments Lymphocytes (%) (Auto) (test code = 736-9) 38.1 18.0-39.1 [facility]roeMonocytes (%) (Auto)2019-05-30 05:07:00* Test Item Value Reference Range Interpretation Comments Monocytes (%) (Auto) (test code = 5905-5) 5.7 4.4-11.3 [facility]roeEosinophils (%) (Auto)2019-05-30 05:07:00 * Test Item Value Reference Range Interpretation Comments Eosinophils (%) (Auto) (test code = 713-8) 0.3 0.0-6.0 [facility] ConroeBasophils (%) (Auto)2019-05-30 05:07:00* Test Item Value Reference Range Interpretation Comments Basophils (%) (Auto) (test code = 706-2) 0.3 0.0-1.0 [facility] ConroeIM GRANULOCYTES %2019-05-30 05:07:00* Test Item Value Reference Range Interpretation Comments IM GRANULOCYTES % (test code = IM GRANULOCYTES %) 0.3 0.0- 1.0 [facility] ConroeNeutrophils # (Auto)2019-05-30 05:07:00* Test Item Value Reference Range Interpretation Comments Neutrophils # (Auto) (test code = 751-8) 6.4 2.1-6.9 [facility]roeLymphocytes # (Auto)2019-05-30 05:07:00* Test Item Value Reference Range Interpretation Comments Lymphocytes # (Auto) (test code = 95657-7) 4.4 1.0-3.2 H [facility] ConroeMonocytes # (Auto)2019-05-30 05:07:00* Test Item Value Reference Range Interpretation Comments Monocytes # (Auto) (test code = 742-7) 0.7 0.2-0.8 [facility]roeEosinophils # (Auto)2019-05-30 05:07:00* Test Item Value Reference Range Interpretation Comments Eosinophils # (Auto) (test code = 711-2) 0.0 0.0-0.4 [facility]roeBasophils # (Auto)2019-05-30 05:07:00* Test Item Value Reference Range Interpretation Comments Basophils # (Auto) (test code = 704-7) 0.0 0.0-0.1 [facility] ConroeAbsolute Immature Granulocyte (auto 2019-05-30 05:07:00* Test Item Value Reference Range Interpretation Comments Absolute Immature Granulocyte (auto (anurag t code = Absolute Immature Granulocyte (auto) 0.03 0-0.1 [facility]roeWhite Blood Lkizc9899-06-20 05:07:00* Test Item Value Reference Range Interpretation Comments White Blood Count (test code = 6690-2) 11.59 4.8-10.8 H [facility] ConroeRed Blood Eiyle4120-38-94 05:07:00* Test Item Value Reference Range Interpretation Comments Red Blood Count (test code = 789-8) 3.17 4.3-5.7 L [facility] ConroeHemoglobin2020-02-13 05:07:00* Test Item Value Reference Range Interpretation Comments Hemoglobin (test code = 46705-2) 8.4 14.0-18.0 L [facility] ConroeHematocrit2020-02-13 05:07:00* Test Item Value Reference Range Interpretation Comments Hematocrit (test code = 4544-3) 27.7 38.2-49.6 L [facility] ConroeMean Corpuscular Vkzqzt2906-97-43 05:07:00* Test Item Value Reference Range Interpretation Comments Mean Corpuscular Volume (test code = 787-2) 87.4 81-99 [facility] ConroeMean Corpuscular Slydfvvlci8349-20-58 05:07:00* Test Item Value Reference Range Interpretation Comments Mean Corpuscular Hemoglobin (test code = 785-6) 26.5 28-32 L [facility] ConroeMean Corpuscular Hemoglobin Concent 2019-05-30 05:07:00* Test Item Value Reference Range Interpretation Comments Mean Corpuscular Hemoglobin Concent (test code = 786-4) 30.3 31-35 L [facility] ConroeRed Cell Distribution Jlrhe7162-90-46 05:07:00* Test Item Value Reference Range Interpretation Comments Red Cell Distribution Width (test code = 80957-3) 14.7 11.7 -14.4 H [facility] ConroePlatelet Dwnhz6413-59-73 05:07:00* Test Item Value Reference Range Interpretation Comments Platelet Count (test code = 777-3) 157 140-360 [facility]roeNeutrophils (%) (Auto)2019-05-30 05:07:00 * Test Item Value Reference Range Interpretation Comments Neutrophils (%) (Auto) (test code = 63635-7) 55.3 38.7-80.0 [facility]roeLymphocytes (%) (Auto)2019-05-30 05:07:00 * Test Item Value Reference Range Interpretation Comments Lymphocytes (%) (Auto) (test code = 736-9) 38.1 18.0-39.1 [facility]roeMonocytes (%) (Auto)2019-05-30 05:07:00* Test Item Value Reference Range Interpretation Comments Monocytes (%) (Auto) (test code = 5905-5) 5.7 4.4-11.3 [facility]roeEosinophils (%) (Auto)2019-05-30 05:07:00 * Test Item Value Reference Range Interpretation Comments Eosinophils (%) (Auto) (test code = 713-8) 0.3 0.0-6.0 [facility]roeBasophils (%) (Auto)2019-05-30 05:07:00* Test Item Value Reference Range Interpretation Comments Basophils (%) (Auto) (test code = 706-2) 0.3 0.0-1.0 [facility]roeIM GRANULOCYTES %2019-05-30 05:07:00* Test Item Value Reference Range Interpretation Comments IM GRANULOCYTES % (test code = IM GRANULOCYTES %) 0.3 0.0- 1.0 [facility]roeNeutrophils # (Auto)2019-05-30 05:07:00* Test Item Value Reference Range Interpretation Comments Neutrophils # (Auto) (test code = 751-8) 6.4 2.1-6.9 [facility]roeLymphocytes # (Auto)2019-05-30 05:07:00* Test Item Value Reference Range Interpretation Comments Lymphocytes # (Auto) (test code = 20408-5) 4.4 1.0-3.2 H [facility]roeMonocytes # (Auto)2019-05-30 05:07:00* Test Item Value Reference Range Interpretation Comments Monocytes # (Auto) (test code = 742-7) 0.7 0.2-0.8 [facility]roeEosinophils # (Auto)2019-05-30 05:07:00* Test Item Value Reference Range Interpretation Comments Eosinophils # (Auto) (test code = 711-2) 0.0 0.0-0.4 [facility]roeBasophils # (Auto)2019-05-30 05:07:00* Test Item Value Reference Range Interpretation Comments Basophils # (Auto) (test code = 704-7) 0.0 0.0-0.1 [facility] ConroeAbsolute Immature Granulocyte (auto 2019-05-30 05:07:00* Test Item Value Reference Range Interpretation Comments Absolute Immature Granulocyte (auto (anurag t code = Absolute Immature Granulocyte (auto) 0.03 0-0.1 [facility] ConroeFluoroscopic procedure less than one hour vesbwcfq8362-89-57 03:45:00* Test Item Value Reference Range Interpretation Comments Differential Total Cells Counted (test code = Differen tial Total Cells Counted) 100 [facility] ConroeManual blood neutrophils/100 leukocytes 2019-05-30 03:45:00* Test Item Value Reference Range Interpretation Comments Neutrophils % (Manual) (test code = 68170-7) 62 40-74 [facility] blood lymphocytes/100 leukocytes 2019-05-30 03:45:00* Test Item Value Reference Range Interpretation Comments Lymphocytes % (Manual) (test code = 737-7) 34 19-48 [facility] ConroeManual blood monocytes/100 leukocytes 2019-05-30 03:45:00* Test Item Value Reference Range Interpretation Comments Monocytes % (Manual) (test code = 744-3) 4 3.4-9.0 [facility] ConroeFluoroscopic procedure less than one hour edszgwig1145-74-73 03:45:00* Test Item Value Reference Range Interpretation Comments Differential Total Cells Counted (test code = Differen tial Total Cells Counted) [facility] 2019-05-30 03:45:00* Test Item Value Reference Range Interpretation Comments Neutrophils % (Manual) (test code = 20473-6) 62 40-74 [facility]ual [facility]/100 leukocytes 2019-05-30 03:45:00* Test Item Value Reference Range Interpretation Comments Lymphocytes % (Manual) (test code = 737-7) 34 19-48 [facility] ConroeManual blood monocytes/100 leukocytes 2019-05-30 03:45:00* Test Item Value Reference Range Interpretation Comments Monocytes % (Manual) (test code = 744-3) 4 3.4-9.0 [facility] Qqxaeqdmb2768-21-30 05:49:00* Test Item Value Reference Range Interpretation Comments Total Bilirubin (test code = 1975-2) 0.8 0.2-1.2 [facility] ConroeAspartate Amino Transf (AST/SGOT) 2019-05-29 05:49:00* Test Item Value Reference Range Interpretation Comments Aspartate Amino Transf (AST/SGOT) (test code = Aspartate Amino Transf (AST/SGOT)) 33 5-34 [facility] ConroeAlanine Aminotransferase (ALT/SGPT) 2019-05-29 05:49:00* Test Item Value Reference Range Interpretation Comments Alanine Aminotransferase (ALT/SGPT) (test code = 1742-6) 33 0-55 [facility] Jdivwph8273-41-03 05:49:00* Test Item Value Reference Range Interpretation Comments Total Protein (test code = 2885-2) 5.6 6.5-8.1 L [facility] ConroeAlbumin2020-02-12 05:49:00* Test Item Value Reference Range Interpretation Comments Albumin (test code = 1751-7) 2.9 3.5-5.0 L [facility] ConroeGlobulin2020-02-12 05:49:00* Test Item Value Reference Range Interpretation Comments Globulin (test code = 69982-9) 2.7 2.3-3.5 [facility] ConroeAlbumin/Globulin Dtndo1879-36-92 05:49:00 * Test Item Value Reference Range Interpretation Comments Albumin/Globulin Ratio (test code = 1759-0) 1.1 0.8-2.0 [facility] ConroeAlkaline Ipkewlimoqa6887-96-92 05:49:00* Test Item Value Reference Range Interpretation Comments Alkaline Phosphatase (test code = 6768-6) 104 40-150 [facility]roeTotal Kcmstozjj0409-87-42 05:49:00* Test Item Value Reference Range Interpretation Comments Total Bilirubin (test code = 1975-2) 0.8 0.2-1.2 [facility] ConroeAspartate Amino Transf (AST/SGOT) 2019-05-29 05:49:00* Test Item Value Reference Range Interpretation Comments Aspartate Amino Transf (AST/SGOT) (test code = Aspartate Amino Transf (AST/SGOT)) 33 5-34 [facility]roeAlanine Aminotransferase (ALT/SGPT) 2019-05-29 05:49:00* Test Item Value Reference Range Interpretation Comments Alanine Aminotransferase (ALT/SGPT) (test code = 1742-6) 33 0-55 [facility]Total Osialzv7663-58-94 05:49:00* Test Item Value Reference Range Interpretation Comments Total Protein (test code = 2885-2) 5.6 6.5-8.1 L [facility]roeAlbumin2020-02-12 05:49:00* Test Item Value Reference Range Interpretation Comments Albumin (test code = 1751-7) 2.9 3.5-5.0 L [facility]roeGlobulin2020-02-12 05:49:00* Test Item Value Reference Range Interpretation Comments Globulin (test code = 30657-3) 2.7 2.3-3.5 [facility]roeAlbumin/Globulin Wyfkj7682-78-76 05:49:00 * Test Item Value Reference Range Interpretation Comments Albumin/Globulin Ratio (test code = 1759-0) 1.1 0.8-2.0 [facility] ConroeAlkaline Tuthsolcobw1436-33-45 05:49:00* Test Item Value Reference Range Interpretation Comments Alkaline Phosphatase (test code = 6768-6) 104 40-150 [facility]2020-02-11 11:23:00* Test Item Value Reference Range Interpretation Comments Ammonia (test code = 66444-5) 126 31-123 H [facility]2020-02-11 11:23:00* Test Item Value Reference Range Interpretation Comments Ammonia (test code = 53419-5) 126 31-123 H [facility]roeProthrombin Nprh1717-02-43 11:11:00* Test Item Value Reference Range Interpretation Comments Prothrombin Time (test code = 5902-2) 15.2 11.9-14.5 H [facility] ConroeProthromb Time International Ratio 2019-05-28 11:11:00* Test Item Value Reference Range Interpretation Comments Prothromb Time International Ratio (test code = 6301-6) 1.13 Oral Anticoagulant Therapy INR Values:1. Low Intensity Therapy 1.5 - 2.02 . Moderate Intensity Therapy 2.0 - 3.03. High Intensity Therapy(1) 2.5 - 3. 54. High Intensity Therapy(2) 3.0 - 4.05. Panic Value INR > 5.0 [facility]roeProthrombin Taxc8173-14-47 11:11:00* Test Item Value Reference Range Interpretation Comments Prothrombin Time (test code = 5902-2) 15.2 11.9-14.5 H [facility]roeProthromb Time International Ratio 2019-05-28 11:11:00* Test Item Value Reference Range Interpretation Comments Prothromb Time International Ratio (test code = 6301-6) 1.13 Oral Anticoagulant Therapy INR Values:1. Low Intensity Therapy 1.5 - 2.02 . Moderate Intensity Therapy 2.0 - 3.03. High Intensity Therapy(1) 2.5 - 3. 54. High Intensity Therapy(2) 3.0 - 4.05. Panic Value INR > 5.0 [facility]2020-02-11 09:50:00* Test Item Value Reference Range Interpretation Comments Ammonia (test code = 59910-6) 126 31-123 [facility]2020-02-11 09:50:00* Test Item Value Reference Range Interpretation Comments Ammonia (test code = 75666-6) 126 31-123 [facility] ConroePlatelet Kjcguhnh3403-18-84 21:34:00* Test Item Value Reference Range Interpretation Comments Platelet Estimate (test code = 99852-6) ADEQUATE [facility] ConroePlatelet Morphology Vjcacmj5066-01-01 21:34:00* Test Item Value Reference Range Interpretation Comments Platelet Morphology Comment (test code = 44559-9) NORMAL [facility]roeHypochromasia2020-02-10 21:34:00* Test Item Value Reference Range Interpretation Comments Hypochromasia (test code = 728-6) SLIGHT [facility]roeRed Cell Morphology Tyfbxcm7924-83-19 21:34:00* Test Item Value Reference Range Interpretation Comments Red Cell Morphology Comment (test code = 6742-1) NORMAL [facility] ConroePlatelet Prigifxd4137-28-10 21:34:00* Test Item Value Reference Range Interpretation Comments Platelet Estimate (test code = 35342-4) ADEQUATE [facility] ConroePlatelet Morphology Llxqekv2049-07-20 21:34:00* Test Item Value Reference Range Interpretation Comments Platelet Morphology Comment (test code = 06732-9) NORMAL [facility]roeHypochromasia2020-02-10 21:34:00* Test Item Value Reference Range Interpretation Comments Hypochromasia (test code = 728-6) SLIGHT [facility]roeRed Cell Morphology Gugqqll1865-64-90 21:34:00* Test Item Value Reference Range Interpretation Comments Red Cell Morphology Comment (test code = 6742-1) NORMAL [facility]2020-02-10 20:22:00* Test Item Value Reference Range Interpretation Comments Iron Level (test code = 2498-4) 10 65-175 L [facility]roeTotal Iron Binding Tfidelnt5002-70-90 20:22:00* Test Item Value Reference Range Interpretation Comments Total Iron Binding Capacity (test code = 2500-7) 568 261-4 78 H [facility] ConroePercent Iron Mrtvywbyel4131-92-26 20:22:00* Test Item Value Reference Range Interpretation Comments Percent Iron Saturation (test code = 2502-3) 2 15-50 L [facility] ConroeTransferrin2020-02-10 20:22:00* Test Item Value Reference Range Interpretation Comments Transferrin (test code = 3034-6) 406 174-[address] [facility] Lgrza6975-09-25 20:22:00* Test Item Value Reference Range Interpretation Comments Iron Level (test code = 2498-4) 10 65-175 L [facility]roeTotal Iron Binding Bgidstbo7756-08-79 20:22:00* Test Item Value Reference Range Interpretation Comments Total Iron Binding Capacity (test code = 2500-7) 568 261-4 78 H [facility]roePercent Iron Eissrgaiyl6826-65-15 20:22:00* Test Item Value Reference Range Interpretation Comments Percent Iron Saturation (test code = 2502-3) 2 15-50 L [facility] ConroeTransferrin2020-02-10 20:22:00* Test Item Value Reference Range Interpretation Comments Transferrin (test code = 3034-6) 406 174-364 H [facility] ConroeActivated Partial Thromboplast Time 2019-05-27 20:19:00* Test Item Value Reference Range Interpretation Comments Activated Partial Thromboplast Time (test code = 59055-2) 33.7 23.8-35.5 [facility]roeActivated Partial Thromboplast Time 2019-05-27 20:19:00* Test Item Value Reference Range Interpretation Comments Activated Partial Thromboplast Time (test code = 21836-5) 33.7 23.8-35.5 [facility] count by estimate (number/volume)2019-05-27 18:55:00* Test Item Value Reference Range Interpretation Comments Platelet Estimate (test code = 46901-4) ADEQUATE [facility] ConroePlatelet hfspucnbfx7489-32-46 18:55:00* Test Item Value Reference Range Interpretation Comments Platelet Morphology Comment (test code = 73661-1) NORMAL [facility] hypochromia detection by light ekfewqlspn2785-97-08 18:55:00* Test Item Value Reference Range Interpretation Comments Hypochromasia (test code = 728-6) SLIGHT [facility]roeRB uxnxqkmxqu8810-84-48 18:55:00* Test Item Value Reference Range Interpretation Comments Red Cell Morphology Comment (test code = 6742-1) NORMAL [facility] plasma iron measurement (mass/volume)2019-05-27 18:55:00* Test Item Value Reference Range Interpretation Comments Iron Level (test code = 2498-4) 10 65-[address] [facility]er[facility] or plasma iron binding capacity measurement (mass/volume)2019-05-27 18:55:00* Test Item Value Reference Range Interpretation Comments Total Iron Binding Capacity (test code = 2500-7) 568 261-[address] [facility] Hospitalerum or plasma iron saturation measurement (mass fraction)2019-05-27 18:55:00* Test Item Value Reference Range Interpretation Comments Percent Iron Saturation (test code = 2502-3) 2 15-[address] [facility] Hospitalerum or plasma transferrin measurement (mass/volume)2019-05-27 18:55:00* Test Item Value Reference Range Interpretation Comments Transferrin (test code = 3034-6) 406 174-364 [facility] platelets count by estimate (number/volume)2019-05-27 18:55:00* Test Item Value Reference Range Interpretation Comments Platelet Estimate (test code = 92218-2) ADEQUATE [facility] ConroePlatelet fwqkwemkcc0444-23-71 18:55:00* Test Item Value Reference Range Interpretation Comments Platelet Morphology Comment (test code = 74250-3) NORMAL [facility]roeBlood hypochromia detection by light kfwnmzzqbz3107-24-59 18:55:00* Test Item Value Reference Range Interpretation Comments Hypochromasia (test code = 728-6) SLIGHT [facility] ConroeRBC httrlmwuwy4173-11-13 18:55:00* Test Item Value Reference Range Interpretation Comments Red Cell Morphology Comment (test code = 6742-1) NORMAL [facility] or plasma iron measurement (mass/volume)2019-05-27 18:55:00* Test Item Value Reference Range Interpretation Comments Iron Level (test code = 2498-4) 10 65-[address] [facility] Hospitalerum or plasma iron binding capacity measurement (mass/volume)2019-05-27 18:55:00* Test Item Value Reference Range Interpretation Comments Total Iron Binding Capacity (test code = 2500-7) 568 261-[address] [facility] Hospitalerum or plasma iron saturation measurement (mass fraction)2019-05-27 18:55:00* Test Item Value Reference Range Interpretation Comments Percent Iron Saturation (test code = 2502-3) 2 15-[address] [facility] Hospitalerum or plasma transferrin measurement (mass/volume)2019-05-27 18:55:00* Test Item Value Reference Range Interpretation Comments Transferrin (test code = 3034-6) 406 174-364 [facility]roeWhite Blood Yzcqd4197-82-01 16:07:00* Test Item Value Reference Range Interpretation Comments White Blood Count (test code = 6690-2) 6.51 4.8-10.8 [facility]roeRed Blood Tjigv4017-85-43 16:07:00* Test Item Value Reference Range Interpretation Comments Red Blood Count (test code = 789-8) 2.41 4.3-5.7 L [facility]roeHemoglobin2020-02-06 16:07:00* Test Item Value Reference Range Interpretation Comments Hemoglobin (test code = 45619-0) 6.7 14.0-18.0 LL Results called to ALEC MOORE at 1606 on 05/23/19 by NILTON RAMIREZ. RB O K.[facility]roeHematocrit2020-02-06 16:07:00* Test Item Value Reference Range Interpretation Comments Hematocrit (test code = 4544-3) 21.8 38.2-49.6 L [facility]roeMean Corpuscular Hzlryu7851-57-09 16:07:00* Test Item Value Reference Range Interpretation Comments Mean Corpuscular Volume (test code = 787-2) 90.5 81-99 [facility]roeMean Corpuscular Vtirltheui7883-06-15 16:07:00* Test Item Value Reference Range Interpretation Comments Mean Corpuscular Hemoglobin (test code = 785-6) 27.8 28-32 L [facility]roeMean Corpuscular Hemoglobin Concent 2019-05-23 16:07:00* Test Item Value Reference Range Interpretation Comments Mean Corpuscular Hemoglobin Concent (test code = 786-4) 30.7 31-35 L [facility] ConroeRed Cell Distribution Mcgom8201-25-88 16:07:00* Test Item Value Reference Range Interpretation Comments Red Cell Distribution Width (test code = 41843-8) 14.3 11.7 -14.4 [facility] ConroePlatelet Aqisz4721-55-77 16:07:00* Test Item Value Reference Range Interpretation Comments Platelet Count (test code = 777-3) 135 140-360 L [facility]roeNeutrophils (%) (Auto)2019-05-23 16:07:00 * Test Item Value Reference Range Interpretation Comments Neutrophils (%) (Auto) (test code = 95374-3) 30.6 38.7-80.0 L [facility]roeLymphocytes (%) (Auto)2019-05-23 16:07:00 * Test Item Value Reference Range Interpretation Comments Lymphocytes (%) (Auto) (test code = 736-9) 53.9 18.0-39.1 H [facility] ConroeMonocytes (%) (Auto)2019-05-23 16:07:00* Test Item Value Reference Range Interpretation Comments Monocytes (%) (Auto) (test code = 5905-5) 8.3 4.4-11.3 [facility]roeEosinophils (%) (Auto)2019-05-23 16:07:00 * Test Item Value Reference Range Interpretation Comments Eosinophils (%) (Auto) (test code = 713-8) 6.5 0.0-6.0 H [facility]roeBasophils (%) (Auto)2019-05-23 16:07:00* Test Item Value Reference Range Interpretation Comments Basophils (%) (Auto) (test code = 706-2) 0.5 0.0-1.0 [facility] ConroeIM GRANULOCYTES %2019-05-23 16:07:00* Test Item Value Reference Range Interpretation Comments IM GRANULOCYTES % (test code = IM GRANULOCYTES %) 0.2 0.0- 1.0 [facility]roeNeutrophils # (Auto)2019-05-23 16:07:00* Test Item Value Reference Range Interpretation Comments Neutrophils # (Auto) (test code = 751-8) 2.0 2.1-6.9 L [facility]roeLymphocytes # (Auto)2019-05-23 16:07:00* Test Item Value Reference Range Interpretation Comments Lymphocytes # (Auto) (test code = 43908-1) 3.5 1.0-3.2 H [facility] ConroeMonocytes # (Auto)2019-05-23 16:07:00* Test Item Value Reference Range Interpretation Comments Monocytes # (Auto) (test code = 742-7) 0.5 0.2-0.8 [facility]roeEosinophils # (Auto)2019-05-23 16:07:00* Test Item Value Reference Range Interpretation Comments Eosinophils # (Auto) (test code = 711-2) 0.4 0.0-0.4 [facility]roeBasophils # (Auto)2019-05-23 16:07:00* Test Item Value Reference Range Interpretation Comments Basophils # (Auto) (test code = 704-7) 0.0 0.0-0.1 [facility] ConroeAbsolute Immature Granulocyte (auto 2019-05-23 16:07:00* Test Item Value Reference Range Interpretation Comments Absolute Immature Granulocyte (auto (anurag t code = Absolute Immature Granulocyte (auto) 0.01 0-0.1 [facility] ConroeDifferential Total Cells Counted 2019-05-23 13:38:00* Test Item Value Reference Range Interpretation Comments Differential Total Cells Counted (test code = Differen tial Total Cells Counted) 100 [facility]roeNeutrophils % (Manual)2019-05-23 13:38:00 * Test Item Value Reference Range Interpretation Comments Neutrophils % (Manual) (test code = 89218-7) 36 40-74 L [facility] ConroeLymphocytes % (Manual)2019-05-23 13:38:00 * Test Item Value Reference Range Interpretation Comments Lymphocytes % (Manual) (test code = 737-7) 56 19-48 H [facility] ConroeMonocytes % (Manual)2019-05-23 13:38:00* Test Item Value Reference Range Interpretation Comments Monocytes % (Manual) (test code = 744-3) 4 3.4-9.0 [facility]roeEosinophils % (Manual)2019-05-23 13:38:00 * Test Item Value Reference Range Interpretation Comments Eosinophils % (Manual) (test code = 714-6) 4 0-7 [facility]roeEosinophils % (Manual)2019-05-23 13:38:00 * Test Item Value Reference Range Interpretation Comments Eosinophils % (Manual) (test code = 714-6) 4 0-7 [facility]roeEosinophils % (Manual)2019-05-23 13:38:00 * Test Item Value Reference Range Interpretation Comments Eosinophils % (Manual) (test code = 714-6) 4 0-7 [facility] ConroeProthrombin Bser7167-13-34 11:50:00* Test Item Value Reference Range Interpretation Comments Prothrombin Time (test code = 5902-2) 13.8 11.9-14.5 [facility] ConroeProthromb Time International Ratio 2019-05-23 11:50:00* Test Item Value Reference Range Interpretation Comments Prothromb Time International Ratio (test code = 6301-6) 1.04 Oral Anticoagulant Therapy INR Values:1. Low Intensity Therapy 1.5 - 2.02 . Moderate Intensity Therapy 2.0 - 3.03. High Intensity Therapy(1) 2.5 - 3. 54. High Intensity Therapy(2) 3.0 - 4.05. Panic Value INR > 5.0 [facility] ConroeActivated Partial Thromboplast Time 2019-05-23 11:50:00* Test Item Value Reference Range Interpretation Comments Activated Partial Thromboplast Time (test code = 30085-1) 34.9 23.8-35.[address] [facility] Hospitalodium Rsqjg1458-04-89 11:17:00* Test Item Value Reference Range Interpretation Comments Sodium Level (test code = 2951-2) 137 136-145 [facility]roePotassium Cusjf6294-37-40 11:17:00* Test Item Value Reference Range Interpretation Comments Potassium Level (test code = 2823-3) 4.0 3.5-5.1 [facility] ConroeChloride Apyxj9961-84-47 11:17:00* Test Item Value Reference Range Interpretation Comments Chloride Level (test code = 2075-0) 105 98-107 [facility] ConroeCarbon Dioxide Bapli0714-16-02 11:17:00* Test Item Value Reference Range Interpretation Comments Carbon Dioxide Level (test code = 2028-9) 21 22-29 L [facility] ConroeAnion Mbu1531-03-50 11:17:00* Test Item Value Reference Range Interpretation Comments Anion Gap (test code = 59232-3) 15.0 8-16 [facility]roeBlood Urea Abwpanph6954-52-40 11:17:00* Test Item Value Reference Range Interpretation Comments Blood Urea Nitrogen (test code = 3094-0) 11 7-26 [facility] ConroeCreatinine2020-02-06 11:17:00* Test Item Value Reference Range Interpretation Comments Creatinine (test code = 2160-0) 0.92 0.72-1.25 [facility]roeBUN/Creatinine Kheyh2179-37-69 11:17:00* Test Item Value Reference Range Interpretation Comments BUN/Creatinine Ratio (test code = 3097-3) 12 6-25 [facility] ConroeEstimat Glomerular Filtration Rate 2019-05-23 11:17:00* Test Item Value Reference Range Interpretation Comments Estimat Glomerular Filtration Rate (test code = 544096694) > 60 >60 Ranges were taken from the National Kidney Disease Education Program and the [facility]ney Foundation literature.Reference ranges:60 or greater: Tvvvqc28-41 ( for 3 consecutive months): Chronic kidney disease 15 or less: Kidney failureHCA [facility] Healthcare ConroeGlucose Iyqov4179-68-02 11:17:00* Test Item Value Reference Range Interpretation Comments Glucose Level (test code = QYP5582) 202 74-118 H [facility] ConroeCalcium Xaxdq8144-76-99 11:17:00* Test Item Value Reference Range Interpretation Comments Calcium Level (test code = 70705-5) 8.6 8.4-10.2 [facility]roeTotal Opumwyzjs6551-55-77 11:17:00* Test Item Value Reference Range Interpretation Comments Total Bilirubin (test code = 1975-2) 0.6 0.2-1.2 [facility] ConroeAspartate Amino Transf (AST/SGOT) 2019-05-23 11:17:00* Test Item Value Reference Range Interpretation Comments Aspartate Amino Transf (AST/SGOT) (test code = Aspartate Amino Transf (AST/SGOT)) 35 5-34 H [facility] ConroeAlanine Aminotransferase (ALT/SGPT) 2019-05-23 11:17:00* Test Item Value Reference Range Interpretation Comments Alanine Aminotransferase (ALT/SGPT) (test code = 1742-6) 29 0-55 [facility]roeTotal Dphuloi7746-25-85 11:17:00* Test Item Value Reference Range Interpretation Comments Total Protein (test code = 2885-2) 6.1 6.5-8.1 L [facility] ConroeAlbumin2020-02-06 11:17:00* Test Item Value Reference Range Interpretation Comments Albumin (test code = 1751-7) 3.2 3.5-5.0 L [facility] ConroeGlobulin2020-02-06 11:17:00* Test Item Value Reference Range Interpretation Comments Globulin (test code = 81234-1) 2.9 2.3-3.5 [facility]roeAlbumin/Globulin Vpgkm7253-57-04 11:17:00 * Test Item Value Reference Range Interpretation Comments Albumin/Globulin Ratio (test code = 1759-0) 1.1 0.8-2.0 [facility] ConroeAlkaline Gujzprrzigf2601-67-66 11:17:00* Test Item Value Reference Range Interpretation Comments Alkaline Phosphatase (test code = 6768-6) 116 40-150 [facility] as percentage of total udhcsxqhtg8600-03-75 09:40:00* Test Item Value Reference Range Interpretation Comments Eosinophils % (Manual) (test code = 714-6) 4 0-7 [facility] blood eosinophil count as percentage of total totmumimvn6856-00-46 09:40:00* Test Item Value Reference Range Interpretation Comments Eosinophils % (Manual) (test code = 714-6) 4 0-7 [facility] Aoitpmi9454-41-49 15:08:00* Test Item Value Reference Range Interpretation Comments Bedside Glucose (test code = 11043-0) 333 70-120 H Meter ID: [id number] [facility] Hospital Glucose 2019-04-20 15:08:00* Test Item Value Reference Range Interpretation Comments Bedside Glucose (test code = 71067-1) 333 70-120 H Meter ID: [id number] Memorial Hospital Glucose 2019-04-20 15:08:00* Test Item Value Reference Range Interpretation Comments Bedside Glucose (test code = 82972-2) 333 70-120 H Meter ID: [id number] [facility] HospitalCTA VHJC0886-98-66 14:49:00 [facility] [address] [place] [address] Patient Name: CARLITO ROCK MR #: [id number] : 1940 Age/Sex: 78/M Req #: [id number] [facility] Physician: LEOLA PONCE MD Ordered by: SARA OLIVAS MD Report #: [id number] Location: [place] [address] Room/Bed: 2931 Procedure: 0103-[address]/CTA NECK Exam Date: 04/19/19 Exam Time: 1630 REPORT STATUS: Signed EXAMINATION: CT angiogram of the [place] of [place] and neck with contrast CLINICAL [...] reasonably achievabl e. CT ANGIOGRAM OF THE [place] OF CID FINDINGS: Atherosclerotic calcifi cation of [...] 1501 COPY TO: SARA OLIVAS MD CTA SXTHA6621-27-22 14:49:00 [place] [address] Patient Name: CARLITO ROCK MR #: [id number] : 1940 Age/Sex: 78/M Req #: [id number] Adm Physician: LEOLA PONCE MD Ordered by: SARA OLIVAS MD Report #: [id number] Location: MED/SURG3 Room/Bed: 293 Procedure: 0103-[address]/CTA BRAIN Exam Date: 04/19/19 Exam Time: 1630 REPORT STATUS: Signed EXAMINATION : CT angiogram of the [place] of [place] and neck with contrast CLINICAL [...] reasonably achievab le. CT ANGIOGRAM OF THE [place] OF CID FINDINGS: Atherosclerotic calcif ication of [...] COPY TO: SARA OLIVAS MD Vitamin B12 Fygpo8645-83-85 21:46:00* Test Item Value Reference Range Interpretation Comments Vitamin B12 Level (test code = 07444-5) [facility] 213-816 H [facility] ConroeVitamin B12 Mpsjc8527-85-78 21:46:00* Test Item Value Reference Range Interpretation Comments Vitamin B12 Level (test code = 51934-4) 1037 213-816 H [facility] ConroeVitamin B12 Brjsd3030-69-64 21:46:00* Test Item Value Reference Range Interpretation Comments Vitamin B12 Level (test code = 51320-0) 1036 213-816 H [facility] ConroeVitamin B12 Fnpvj0091-82-37 21:46:00* Test Item Value Reference Range Interpretation Comments Vitamin B12 Level (test code = 50145-6) 1037 213-816 H [facility] ConroeVitamin B12 Sycjj1241-83-94 21:46:00* Test Item Value Reference Range Interpretation Comments Vitamin B12 Level (test code = 32527-7) 1037 213-816 H [facility] ConroeTriglycerides Dtfip8154-48-71 21:02:00* Test Item Value Reference Range Interpretation Comments Triglycerides Level (test code = 2571-8) 101 0-149 [facility] ConroeCholesterol Wxpnz2871-76-38 21:02:00* Test Item Value Reference Range Interpretation Comments Cholesterol Level (test code = 2093-3) 196 0-199 Less than 200 mg/dL Low Iyfa221 - 239 mg/dL Borderline Kfzm309 m g/dl and greater High Risk [facility] ConroeLDL Izkljxynimd1117-99-28 21:02:00* Test Item Value Reference Range Interpretation Comments LDL Cholesterol (test code = 2089-1) 101 60-130 [facility] ConroeHDL Pwkrlbfuwas5985-32-55 21:02:00* Test Item Value Reference Range Interpretation Comments HDL Cholesterol (test code = 2085-9) 75 40-60 H [facility] ConroeCholesterol/HDL Gkzmf9502-99-59 21:02:00 * Test Item Value Reference Range Interpretation Comments Cholesterol/HDL Ratio (test code = 9830-1) 2.6 3.9-4.7 L [facility] ConroeTriglycerides Uewst6923-08-76 21:02:00* Test Item Value Reference Range Interpretation Comments Triglycerides Level (test code = 2571-8) 101 0-149 [facility] ConroeCholesterol Aygds8728-25-17 21:02:00* Test Item Value Reference Range Interpretation Comments Cholesterol Level (test code = 2093-3) 196 0-199 Less than 200 mg/dL Low Lrwr378 - 239 mg/dL Borderline Frar741 m g/dl and greater High Risk [facility]LDL Sorkkcdwsza5636-67-09 21:02:00* Test Item Value Reference Range Interpretation Comments LDL Cholesterol (test code = 2089-1) 101 60-130 [facility] Wdehixvlrck6763-16-91 21:02:00* Test Item Value Reference Range Interpretation Comments HDL Cholesterol (test code = 2085-9) 75 40-60 H [facility]roeCholesterol/HDL Sclen0346-81-23 21:02:00 * Test Item Value Reference Range Interpretation Comments Cholesterol/HDL Ratio (test code = 9830-1) 2.6 3.9-4.7 L [facility]roeTriglycerides Iyosd1396-61-00 21:02:00* Test Item Value Reference Range Interpretation Comments Triglycerides Level (test code = 2571-8) 101 0-149 [facility]roeCholesterol Qzpim2078-25-83 21:02:00* Test Item Value Reference Range Interpretation Comments Cholesterol Level (test code = 2093-3) 196 0-199 Less than 200 mg/dL Low Tyzi114 - 239 mg/dL Borderline Umky639 m g/dl and greater High Risk [facility]LDL Qcblzpdmvty4780-90-96 21:02:00* Test Item Value Reference Range Interpretation Comments LDL Cholesterol (test code = 2089-1) 101 60-130 [facility] Cedfiztfqcz3767-92-73 21:02:00* Test Item Value Reference Range Interpretation Comments HDL Cholesterol (test code = 2085-9) 75 40-60 H [facility]Cholesterol/HDL Ajgzc4082-12-16 21:02:00 * Test Item Value Reference Range Interpretation Comments Cholesterol/HDL Ratio (test code = 9830-1) 2.6 3.9-4.7 L [facility]roeTriglycerides Fzhqc0253-34-32 21:02:00* Test Item Value Reference Range Interpretation Comments Triglycerides Level (test code = 2571-8) 101 0-149 [facility]roeCholesterol Jsxqe7817-29-24 21:02:00* Test Item Value Reference Range Interpretation Comments Cholesterol Level (test code = 2093-3) 196 0-199 Less than 200 mg/dL Low Gwww365 - 239 mg/dL Borderline Zsik556 m g/dl and greater High Risk [facility]LDL Zyketzthgtx8090-88-02 21:02:00* Test Item Value Reference Range Interpretation Comments LDL Cholesterol (test code = 2089-1) 101 60-130 [facility] Mppfefkbfue1645-05-62 21:02:00* Test Item Value Reference Range Interpretation Comments HDL Cholesterol (test code = 2085-9) 75 40-60 H [facility]roeCholesterol/HDL Rawqr9968-36-77 21:02:00 * Test Item Value Reference Range Interpretation Comments Cholesterol/HDL Ratio (test code = 9830-1) 2.6 3.9-4.7 L [facility]roeTriglycerides Vayvy7528-03-36 21:02:00* Test Item Value Reference Range Interpretation Comments Triglycerides Level (test code = 2571-8) 101 0-149 [facility]roeCholesterol Zfxpg5311-40-72 21:02:00* Test Item Value Reference Range Interpretation Comments Cholesterol Level (test code = 2093-3) 196 0-199 Less than 200 mg/dL Low Pfue912 - 239 mg/dL Borderline Kvgc372 m g/dl and greater High Risk [facility]LDL Vntnziuhqdg1241-29-57 21:02:00* Test Item Value Reference Range Interpretation Comments LDL Cholesterol (test code = 2089-1) 101 60-130 [facility]roeHDL Ocvzlvpiava5002-63-14 21:02:00* Test Item Value Reference Range Interpretation Comments HDL Cholesterol (test code = 2085-9) 75 40-60 H [facility]roeCholesterol/HDL Ruick8353-69-38 21:02:00 * Test Item Value Reference Range Interpretation Comments Cholesterol/HDL Ratio (test code = 9830-1) 2.6 3.9-4.7 L [facility]roeMRI BRAIN QW2060-11-09 16:59:00 [facility] [address] [address] Patient Name: CARLITO ROCK MR #: [id number] : 1940 Age/Sex: 78/M Req #: [id number] Adm Physician: LEOLA PONCE MD Ordered by: DEVANTE COLLINS DO Report #: [id number] Location: MED/SURG3 Room/Bed: [facility] Procedure: 0102-00 06 MRI/MRI BRAIN WO [...] TO: DEVANTE COLLINS DO B- Type Natriuretic Oyxbcss0488-34-49 16:46:00* Test Item Value Reference Range Interpretation Comments B-Type Natriuretic Peptide (test code = 85895-2) 34.3 0-100 [facility]roeCreatine Kinase XO8558-91-51 16:46:00* Test Item Value Reference Range Interpretation Comments Creatine Kinase MB (test code = 78847-1) 1.70 0-5.0 [place] 02058020-01-02 16:46:00* Test Item Value Reference Range Interpretation Comments Troponin I (test code = DGR0274) 0.059 0-0.300 [facility]roeB-Type Natriuretic Pbpnlht1624-39-65 16:46:00* Test Item Value Reference Range Interpretation Comments B-Type Natriuretic Peptide (test code = 01358-0) 34.3 0-100 [facility]roeCreatine Kinase BS4186-21-49 16:46:00* Test Item Value Reference Range Interpretation Comments Creatine Kinase MB (test code = 21925-0) 1.70 0-5.0 [place] 02058020-01-02 16:46:00* Test Item Value Reference Range Interpretation Comments Troponin I (test code = MFJ1231) 0.059 0-0.300 [facility]roeB-Type Natriuretic Wlmqhqi3934-07-55 16:46:00* Test Item Value Reference Range Interpretation Comments B-Type Natriuretic Peptide (test code = 79539-4) 34.3 0-100 [facility]roeCreatine Kinase QE7538-83-36 16:46:00* Test Item Value Reference Range Interpretation Comments Creatine Kinase MB (test code = 52596-7) 1.70 0-5.0 [place] 02058020-01-02 16:46:00* Test Item Value Reference Range Interpretation Comments Troponin I (test code = ZYK6821) 0.059 0-0.300 [facility]roeB-Type Natriuretic Yvsmkmq5059-85-38 16:46:00* Test Item Value Reference Range Interpretation Comments B-Type Natriuretic Peptide (test code = 19034-9) 34.3 0-100 [facility]roeCreatine Kinase VC9036-19-34 16:46:00* Test Item Value Reference Range Interpretation Comments Creatine Kinase MB (test code = 68438-5) 1.70 0-5.0 [facility] ConroeTroponin M5424-14-77 16:46:00* Test Item Value Reference Range Interpretation Comments Troponin I (test code = VNF8347) 0.059 0-0.300 [facility]roeB-Type Natriuretic Adqohmn0287-50-15 16:46:00* Test Item Value Reference Range Interpretation Comments B-Type Natriuretic Peptide (test code = 19074-3) 34.3 0-100 [facility] ConroeCreatine Kinase RR0838-69-97 16:46:00* Test Item Value Reference Range Interpretation Comments Creatine Kinase MB (test code = 63131-1) 1.70 [facility] 16:46:00* Test Item Value Reference Range Interpretation Comments Troponin I (test code = WQS5108) 0.059 0-0.[address] [facility]odium Kvmpo1256-87-12 15:53:00* Test Item Value Reference Range Interpretation Comments Sodium Level (test code = 2951-2) 139 136-145 [facility]roePotassium Fdbsm7982-41-96 15:53:00* Test Item Value Reference Range Interpretation Comments Potassium Level (test code = 2823-3) 3.6 3.5-5.1 [facility]roeChloride Lsftb5653-06-46 15:53:00* Test Item Value Reference Range Interpretation Comments Chloride Level (test code = 2075-0) 102 98-107 [facility] ConroeCarbon Dioxide Bqtct2002-30-37 15:53:00* Test Item Value Reference Range Interpretation Comments Carbon Dioxide Level (test code = 2028-9) 25 22-29 [facility] ConroeAnion Bcz1531-91-06 15:53:00* Test Item Value Reference Range Interpretation Comments Anion Gap (test code = 56260-5) 15.6 8-16 [facility]roeBlood Urea Vgvaucjl4022-98-61 15:53:00* Test Item Value Reference Range Interpretation Comments Blood Urea Nitrogen (test code = 3094-0) 9 7-26 [facility] ConroeCreatinine2020-01-02 15:53:00* Test Item Value Reference Range Interpretation Comments Creatinine (test code = 2160-0) 0.86 0.72-1.25 [facility]roeBUN/Creatinine Rukdd6961-29-04 15:53:00* Test Item Value Reference Range Interpretation Comments BUN/Creatinine Ratio (test code = 3097-3) 10 6-25 [facility] ConroeEstimat Glomerular Filtration Rate 2019-04-18 15:53:00* Test Item Value Reference Range Interpretation Comments Estimat Glomerular Filtration Rate (test code = 019013953) > 60 >60 Ranges were taken from the National Kidney Disease Education Program and the [facility]al Kidney Foundation literature.Reference ranges:60 or greater: Xcsuhy99-03 ( for 3 consecutive months): Chronic kidney disease 15 or less: Kidney failureHCA [facility] Healthcare ConroeGlucose Qtllh3512-73-18 15:53:00* Test Item Value Reference Range Interpretation Comments Glucose Level (test code = BDG1364) 95 74-118 [facility]roeCalcium Ltxjg9745-43-97 15:53:00* Test Item Value Reference Range Interpretation Comments Calcium Level (test code = 20097-9) 9.6 8.4-10.2 [facility] ConroeTotal Autmgmrhw2117-25-67 15:53:00* Test Item Value Reference Range Interpretation Comments Total Bilirubin (test code = 1975-2) 0.7 0.2-1.2 [facility] ConroeAspartate Amino Transf (AST/SGOT) 2019-04-18 15:53:00* Test Item Value Reference Range Interpretation Comments Aspartate Amino Transf (AST/SGOT) (test code = Aspartate Amino Transf (AST/SGOT)) 51 5-34 H [facility] ConroeAlanine Aminotransferase (ALT/SGPT) 2019-04-18 15:53:00* Test Item Value Reference Range Interpretation Comments Alanine Aminotransferase (ALT/SGPT) (test code = 1742-6) 51 0-55 [facility]roeTotal Obhrwwk2821-94-33 15:53:00* Test Item Value Reference Range Interpretation Comments Total Protein (test code = 2885-2) 6.9 6.5-8.1 [facility] ConroeAlbumin2020-01-02 15:53:00* Test Item Value Reference Range Interpretation Comments Albumin (test code = 1751-7) 3.5 3.5-5.0 [facility] ConroeGlobulin2020-01-02 15:53:00* Test Item Value Reference Range Interpretation Comments Globulin (test code = 29180-2) 3.4 2.3-3.5 [facility]roeAlbumin/Globulin Clcwq4753-72-41 15:53:00 * Test Item Value Reference Range Interpretation Comments Albumin/Globulin Ratio (test code = 1759-0) 1.0 0.8-2.0 [facility] ConroeAlkaline Ckbzrmyhzbb6872-88-21 15:53:00* Test Item Value Reference Range Interpretation Comments Alkaline Phosphatase (test code = 6768-6) 117 40-150 [facility] ConroeCreatine Tmrdzp8369-74-69 15:53:00* Test Item Value Reference Range Interpretation Comments Creatine Kinase (test code = 2157-6) 50 30-[address] [facility] Hospitalodium Pfjnh7838-89-29 15:53:00* Test Item Value Reference Range Interpretation Comments Sodium Level (test code = 2951-2) 139 136-145 [facility]roePotassium Gmzpx7884-14-09 15:53:00* Test Item Value Reference Range Interpretation Comments Potassium Level (test code = 2823-3) 3.6 3.5-5.1 [facility] ConroeChloride Cvbyo5458-44-57 15:53:00* Test Item Value Reference Range Interpretation Comments Chloride Level (test code = 2075-0) 102 98-107 [facility] ConroeCarbon Dioxide Lutdc3242-28-24 15:53:00* Test Item Value Reference Range Interpretation Comments Carbon Dioxide Level (test code = 2028-9) 25 22-29 [facility] ConroeAnion Opr4484-51-29 15:53:00* Test Item Value Reference Range Interpretation Comments Anion Gap (test code = 81382-9) 15.6 8-16 [facility]roeBlood Urea Yzjvgwxd0415-63-17 15:53:00* Test Item Value Reference Range Interpretation Comments Blood Urea Nitrogen (test code = 3094-0) 9 7-26 [facility] ConroeCreatinine2020-01-02 15:53:00* Test Item Value Reference Range Interpretation Comments Creatinine (test code = 2160-0) 0.86 0.72-1.25 [facility]roeBUN/Creatinine Rzkrv9308-13-55 15:53:00* Test Item Value Reference Range Interpretation Comments BUN/Creatinine Ratio (test code = 3097-3) 10 6-25 [facility] ConroeEstimat Glomerular Filtration Rate 2019-04-18 15:53:00* Test Item Value Reference Range Interpretation Comments Estimat Glomerular Filtration Rate (test code = 978062460) > 60 >60 Ranges were taken from the National Kidney Disease Education Program and the [facility] Kid[facility] Foundation literature.Reference ranges:60 or greater: Ndtjxk45-15 ( for 3 consecutive months): Chronic kidney disease 15 or less: Kidney failureHCA [facility] Healthcare ConroeGlucose Gvhdx7468-05-58 15:53:00* Test Item Value Reference Range Interpretation Comments Glucose Level (test code = MUC1960) 95 74-118 [facility] ConroeCalcium Bqcgy2767-07-81 15:53:00* Test Item Value Reference Range Interpretation Comments Calcium Level (test code = 27273-9) 9.6 8.4-10.2 [facility]roeTotal Wydwdmocq6898-28-23 15:53:00* Test Item Value Reference Range Interpretation Comments Total Bilirubin (test code = 1975-2) 0.7 0.2-1.2 [facility] ConroeAspartate Amino Transf (AST/SGOT) 2019-04-18 15:53:00* Test Item Value Reference Range Interpretation Comments Aspartate Amino Transf (AST/SGOT) (test code = Aspartate Amino Transf (AST/SGOT)) 51 5-34 H [facility] ConroeAlanine Aminotransferase (ALT/SGPT) 2019-04-18 15:53:00* Test Item Value Reference Range Interpretation Comments Alanine Aminotransferase (ALT/SGPT) (test code = 1742-6) 51 0-55 [facility] ConroeTotal Wuuasho3944-59-57 15:53:00* Test Item Value Reference Range Interpretation Comments Total Protein (test code = 2885-2) 6.9 6.5-8.1 [facility] ConroeAlbumin2020-01-02 15:53:00* Test Item Value Reference Range Interpretation Comments Albumin (test code = 1751-7) 3.5 3.5-5.0 [facility] ConroeGlobulin2020-01-02 15:53:00* Test Item Value Reference Range Interpretation Comments Globulin (test code = 96405-4) 3.4 2.3-3.5 [facility] ConroeAlbumin/Globulin Kxmra0707-10-74 15:53:00 * Test Item Value Reference Range Interpretation Comments Albumin/Globulin Ratio (test code = 1759-0) 1.0 0.8-2.0 [facility] ConroeAlkaline Mwtzsdeoizi1190-09-80 15:53:00* Test Item Value Reference Range Interpretation Comments Alkaline Phosphatase (test code = 6768-6) 117 40-150 [facility] ConroeCreatine Lpssvc7410-94-54 15:53:00* Test Item Value Reference Range Interpretation Comments Creatine Kinase (test code = 2157-6) 50 30-200 [facility] ConroeCreatine Odecsu5778-46-03 15:53:00* Test Item Value Reference Range Interpretation Comments Creatine Kinase (test code = 2157-6) 50 30-200 [facility] ConroeCreatine Nrnrgd2065-16-07 15:53:00* Test Item Value Reference Range Interpretation Comments Creatine Kinase (test code = 2157-6) 50 30-200 [facility] ConroeCreatine Xjuntq6905-52-36 15:53:00* Test Item Value Reference Range Interpretation Comments Creatine Kinase (test code = 2157-6) 50 30-[address] [facility] SINGLE (PORTABLE)2019-04-18 15:51:00 [facility] [address] [address] Patient Name: CARLITO ROCK MR #: [id number] : 1940 Age/Sex: 78/M Req #: [id number] Adm Physician: LEOLA PONCE MD Ordered by: LUCIA SMYTH GEOMORPHOLOGY TEACHER Report #: [id number] Location: [facility] Room/Bed: [place] [address] Procedure: 0102-004 2 DX/CHEST SINGLE (PORTABLE) Exam [...] VEGA on 04/18/191551 COPY TO: LUCIA SMYTH GEOMORPHOLOGY TEACHER Activated Partial Thromboplast Fhtf4151-38-17 15:43:00* Test Item Value Reference Range Interpretation Comments Activated Partial Thromboplast Time (test code = 25640-1) 32.9 23.8-35.5 [facility] ConroeActivated Partial Thromboplast Time 2019-04-18 15:43:00* Test Item Value Reference Range Interpretation Comments Activated Partial Thromboplast Time (test code = 50486-0) 32.9 23.8-35.5 [facility] ConroeProthrombin Tzoj4279-30-90 15:41:00* Test Item Value Reference Range Interpretation Comments Prothrombin Time (test code = 5902-2) 12.9 11.9-14.5 [facility] ConroeProthromb Time International Ratio 2019-04-18 15:41:00* Test Item Value Reference Range Interpretation Comments Prothromb Time International Ratio (test code = 6301-6) 0.92 Oral Anticoagulant Therapy INR Values:1. Low Intensity Therapy 1.5 - 2.02 . Moderate Intensity Therapy 2.0 - 3.03. High Intensity Therapy(1) 2.5 - 3. 54. High Intensity Therapy(2) 3.0 - 4.05. Panic Value INR > 5.0 [facility] ConroeProthrombin Rxyw7226-79-39 15:41:00* Test Item Value Reference Range Interpretation Comments Prothrombin Time (test code = 5902-2) 12.9 11.9-14.5 [facility] ConroeProthromb Time International Ratio 2019-04-18 15:41:00* Test Item Value Reference Range Interpretation Comments Prothromb Time International Ratio (test code = 6301-6) 0.92 Oral Anticoagulant Therapy INR Values:1. Low Intensity Therapy 1.5 - 2.02 . Moderate Intensity Therapy 2.0 - 3.03. High Intensity Therapy(1) 2.5 - 3. 54. High Intensity Therapy(2) 3.0 - 4.05. Panic Value INR > 5.0 [facility]roeWhite Blood Lzzjg8052-08-56 15:36:00* Test Item Value Reference Range Interpretation Comments White Blood Count (test code = 6690-2) 7.03 4.8-10.8 [facility]roeRed Blood Ugufs6062-27-72 15:36:00* Test Item Value Reference Range Interpretation Comments Red Blood Count (test code = 789-8) 3.90 4.3-5.7 L [facility] ConroeHemoglobin2020-01-02 15:36:00* Test Item Value Reference Range Interpretation Comments Hemoglobin (test code = 26925-1) 12.0 14.0-18.0 L [facility] ConroeHematocrit2020-01-02 15:36:00* Test Item Value Reference Range Interpretation Comments Hematocrit (test code = 4544-3) 36.6 38.2-49.6 L [facility] ConroeMean Corpuscular Cyikma7771-98-49 15:36:00* Test Item Value Reference Range Interpretation Comments Mean Corpuscular Volume (test code = 787-2) 93.8 81-99 [facility]roeMean Corpuscular Xeqedppxba8165-13-14 15:36:00* Test Item Value Reference Range Interpretation Comments Mean Corpuscular Hemoglobin (test code = 785-6) 30.8 28-32 [facility] ConroeMean Corpuscular Hemoglobin Concent 2019-04-18 15:36:00* Test Item Value Reference Range Interpretation Comments Mean Corpuscular Hemoglobin Concent (test code = 786-4) 32.8 31-35 [facility] ConroeRed Cell Distribution Ihwzb9364-26-17 15:36:00* Test Item Value Reference Range Interpretation Comments Red Cell Distribution Width (test code = 53905-9) 13.8 11.7 -14.4 [facility] ConroePlatelet Smkzz7784-05-02 15:36:00* Test Item Value Reference Range Interpretation Comments Platelet Count (test code = 777-3) 145 140-360 [facility] ConroeNeutrophils (%) (Auto)2019-04-18 15:36:00 * Test Item Value Reference Range Interpretation Comments Neutrophils (%) (Auto) (test code = 57197-9) 39.0 38.7-80.0 [facility] ConroeLymphocytes (%) (Auto)2019-04-18 15:36:00 * Test Item Value Reference Range Interpretation Comments Lymphocytes (%) (Auto) (test code = 736-9) 47.5 18.0-39.1 H [facility] ConroeMonocytes (%) (Auto)2019-04-18 15:36:00* Test Item Value Reference Range Interpretation Comments Monocytes (%) (Auto) (test code = 5905-5) 7.8 4.4-11.3 [facility]roeEosinophils (%) (Auto)2019-04-18 15:36:00 * Test Item Value Reference Range Interpretation Comments Eosinophils (%) (Auto) (test code = 713-8) 4.7 0.0-6.0 [facility]roeBasophils (%) (Auto)2019-04-18 15:36:00* Test Item Value Reference Range Interpretation Comments Basophils (%) (Auto) (test code = 706-2) 0.9 0.0-1.0 [facility] ConroeIM GRANULOCYTES %2019-04-18 15:36:00* Test Item Value Reference Range Interpretation Comments IM GRANULOCYTES % (test code = IM GRANULOCYTES %) 0.1 0.0- 1.0 [facility]roeNeutrophils # (Auto)2019-04-18 15:36:00* Test Item Value Reference Range Interpretation Comments Neutrophils # (Auto) (test code = 751-8) 2.7 2.1-6.9 [facility] ConroeLymphocytes # (Auto)2019-04-18 15:36:00* Test Item Value Reference Range Interpretation Comments Lymphocytes # (Auto) (test code = 30788-7) 3.3 1.0-3.2 H [facility] ConroeMonocytes # (Auto)2019-04-18 15:36:00* Test Item Value Reference Range Interpretation Comments Monocytes # (Auto) (test code = 742-7) 0.6 0.2-0.8 [facility]roeEosinophils # (Auto)2019-04-18 15:36:00* Test Item Value Reference Range Interpretation Comments Eosinophils # (Auto) (test code = 711-2) 0.3 0.0-0.4 [facility]roeBasophils # (Auto)2019-04-18 15:36:00* Test Item Value Reference Range Interpretation Comments Basophils # (Auto) (test code = 704-7) 0.1 0.0-0.1 [facility] ConroeAbsolute Immature Granulocyte (auto 2019-04-18 15:36:00* Test Item Value Reference Range Interpretation Comments Absolute Immature Granulocyte (auto (anurag t code = Absolute Immature Granulocyte (auto) 0.01 0-0.1 [facility]roeWhite Blood Tjfpi0015-14-70 15:36:00* Test Item Value Reference Range Interpretation Comments White Blood Count (test code = 6690-2) 7.03 4.8-10.8 [facility]roeRed Blood Hgoay8538-68-44 15:36:00* Test Item Value Reference Range Interpretation Comments Red Blood Count (test code = 789-8) 3.90 4.3-5.7 L [facility] ConroeHemoglobin2020-01-02 15:36:00* Test Item Value Reference Range Interpretation Comments Hemoglobin (test code = 26428-2) 12.0 14.0-18.0 L [facility] ConroeHematocrit2020-01-02 15:36:00* Test Item Value Reference Range Interpretation Comments Hematocrit (test code = 4544-3) 36.6 38.2-49.6 L [facility] ConroeMean Corpuscular Ighkqj7112-39-23 15:36:00* Test Item Value Reference Range Interpretation Comments Mean Corpuscular Volume (test code = 787-2) 93.8 81-99 [facility]roeMean Corpuscular Hzqafjaefz6643-46-18 15:36:00* Test Item Value Reference Range Interpretation Comments Mean Corpuscular Hemoglobin (test code = 785-6) 30.8 28-32 [facility] ConroeMean Corpuscular Hemoglobin Concent 2019-04-18 15:36:00* Test Item Value Reference Range Interpretation Comments Mean Corpuscular Hemoglobin Concent (test code = 786-4) 32.8 31-35 [facility] ConroeRed Cell Distribution Bhdzy7300-73-18 15:36:00* Test Item Value Reference Range Interpretation Comments Red Cell Distribution Width (test code = 00023-5) 13.8 11.7 -14.4 [facility] ConroePlatelet Jagdz8567-82-62 15:36:00* Test Item Value Reference Range Interpretation Comments Platelet Count (test code = 777-3) 145 140-360 [facility] ConroeNeutrophils (%) (Auto)2019-04-18 15:36:00 * Test Item Value Reference Range Interpretation Comments Neutrophils (%) (Auto) (test code = 11436-0) 39.0 38.7-80.0 [facility] ConroeLymphocytes (%) (Auto)2019-04-18 15:36:00 * Test Item Value Reference Range Interpretation Comments Lymphocytes (%) (Auto) (test code = 736-9) 47.5 18.0-39.1 H [facility] ConroeMonocytes (%) (Auto)2019-04-18 15:36:00* Test Item Value Reference Range Interpretation Comments Monocytes (%) (Auto) (test code = 5905-5) 7.8 4.4-11.3 [facility]roeEosinophils (%) (Auto)2019-04-18 15:36:00 * Test Item Value Reference Range Interpretation Comments Eosinophils (%) (Auto) (test code = 713-8) 4.7 0.0-6.0 [facility] ConroeBasophils (%) (Auto)2019-04-18 15:36:00* Test Item Value Reference Range Interpretation Comments Basophils (%) (Auto) (test code = 706-2) 0.9 0.0-1.0 [facility] ConroeIM GRANULOCYTES %2019-04-18 15:36:00* Test Item Value Reference Range Interpretation Comments IM GRANULOCYTES % (test code = IM GRANULOCYTES %) 0.1 0.0- 1.0 [facility] ConroeNeutrophils # (Auto)2019-04-18 15:36:00* Test Item Value Reference Range Interpretation Comments Neutrophils # (Auto) (test code = 751-8) 2.7 2.1-6.9 [facility] ConroeLymphocytes # (Auto)2019-04-18 15:36:00* Test Item Value Reference Range Interpretation Comments Lymphocytes # (Auto) (test code = 51104-7) 3.3 1.0-3.2 H [facility] ConroeMonocytes # (Auto)2019-04-18 15:36:00* Test Item Value Reference Range Interpretation Comments Monocytes # (Auto) (test code = 742-7) 0.6 0.2-0.8 [facility] ConroeEosinophils # (Auto)2019-04-18 15:36:00* Test Item Value Reference Range Interpretation Comments Eosinophils # (Auto) (test code = 711-2) 0.3 0.0-0.4 [facility]Basophils # (Auto)2019-04-18 15:36:00* Test Item Value Reference Range Interpretation Comments Basophils # (Auto) (test code = 704-7) 0.1 0.0-0.1 [facility]roeAbsolute Immature Granulocyte (auto 2019-04-18 15:36:00* Test Item Value Reference Range Interpretation Comments Absolute Immature Granulocyte (auto (anurag t code = Absolute Immature Granulocyte (auto) 0.01 0-0.1 [facility]roeCT BRAIN [id number] 14:35:00 [facility] [address] [place] [address] Patient Name: CARLITO ROCK MR #: [id number] : 1940 Age/Sex: 78/M Req #: [id number] Adm Physician: Ordered by: LUCIA SMYTH NP Report #: [id number] Location: ER Room/Bed: Procedure: [id number] CT/CT BRAIN WO Exam Date: Exam Time: [...] 2:54 PM Dictated By: MELIZA OLIVO MD 1220 Transcrib ed By: FISH on 04/18/19 1847 COPY TO: LCUIA SMYTH NP Serum or plasma triglyceride measurement (mass/volume)2019-04-18 13:42:00* Test Item Value Reference Range Interpretation Comments Triglycerides Level (test code = 2571-8) 101 0-[address] [facility]um or plasma cholesterol measurement (mass/volume)2019-04-18 13:42:00* Test Item Value Reference Range Interpretation Comments Cholesterol Level (test code = 2093-3) 196 0-199 Less than 200 mg/dL Low Trgs450 - 239 mg/dL Borderline Cgnt444 m g/dl and greater High Risk [facility]um or plasma cholesterol in LDL measurement (mass/volume) 2019-04-18 13:42:00* Test Item Value Reference Range Interpretation Comments LDL Cholesterol (test code = 2089-1) 101 60-[address] [facility]erum or plasma cholesterol in HDL measurement (mass/volume)2019-04-18 13:42:00* Test Item Value Reference Range Interpretation Comments HDL Cholesterol (test code = 2085-9) 75 40-[address] [facility] Hospitalerum or plasma total cholesterol/cholesterol in HDL mass iumus5438-50-66 13:42:00* Test Item Value Reference Range Interpretation Comments Cholesterol/HDL Ratio (test code = 9830-1) 2.6 3.9-4.7 [facility]roeBNP Ccq-rFsy4954-27-02 13:42:00* Test Item Value Reference Range Interpretation Comments B-Type Natriuretic Peptide (test code = 93379-6) 34.3 0-[address] [facility] Hospitalerum or plasma creatine kinase measurement (enzymatic activity/volume)2019-04-18 13:42:00* Test Item Value Reference Range Interpretation Comments Creatine Kinase (test code = 2157-6) 50 30-[address] [facility] Hospitalerum or plasma creatine kinase MB measurement (mass/volume)2019-04-18 13:42:00* Test Item Value Reference Range Interpretation Comments Creatine Kinase MB (test code = 91789-8) 1.70 0-5.0 [facility] ConroeTroponin I measurement by highly sensitive enzyme tzpigrxfflf7218-29-07 13:42:00* Test Item Value Reference Range Interpretation Comments Troponin I (test code = 38665-5) 0.059 0-0.300 [facility]roeBlood cobalamin (vitamin B12) measurement (mass/volume)2019-04-18 13:42:00* Test Item Value Reference Range Interpretation Comments Vitamin B12 Level (test code = 92560-0) 1037 213-[address] [facility]erum or plasma triglyceride measurement (mass/volume)2019-04-18 13:42:00* Test Item Value Reference Range Interpretation Comments Triglycerides Level (test code = 2571-8) 101 0-[address] [facility] Hospitalerum or plasma cholesterol measurement (mass/volume)2019-04-18 13:42:00* Test Item Value Reference Range Interpretation Comments Cholesterol Level (test code = 2093-3) 196 0-199 Less than 200 mg/dL Low Iwpk496 - 239 mg/dL Borderline Czkg234 m g/dl and greater High [facility]um or plasma cholesterol in LDL measurement (mass/volume) 2019-04-18 13:42:00* Test Item Value Reference Range Interpretation Comments LDL Cholesterol (test code = 2089-1) 101 60-[address] [facility] Hospitalerum or plasma cholesterol in HDL measurement (mass/volume)2019-04-18 13:42:00* Test Item Value Reference Range Interpretation Comments HDL Cholesterol (test code = 2085-9) 75 40-[address] [facility] Hospitalerum or plasma total cholesterol/cholesterol in HDL mass xczbs1312-68-82 13:42:00* Test Item Value Reference Range Interpretation Comments Cholesterol/HDL Ratio (test code = 9830-1) 2.6 3.9-4.7 [facility]roeBNP Wrk-hInh4753-07-02 13:42:00* Test Item Value Reference Range Interpretation Comments B-Type Natriuretic Peptide (test code = 21889-0) 34.3 0-[address] [facility] Hospitalerum or plasma creatine kinase measurement (enzymatic activity/volume)2019-04-18 13:42:00* Test Item Value Reference Range Interpretation Comments Creatine Kinase (test code = 2157-6) 50 30-[address] [facility] Hospitalerum or plasma creatine kinase MB measurement (mass/volume)2019-04-18 13:42:00* Test Item Value Reference Range Interpretation Comments Creatine Kinase MB (test code = 01290-7) 1.70 0-5.0 [facility]roeTroponin I measurement by highly sensitive enzyme pibhmvsctik9034-58-45 13:42:00* Test Item Value Reference Range Interpretation Comments Troponin I (test code = 11377-7) 0.059 0-0.[address] [facility] cobalamin (vitamin B12) measurement (mass/volume)2019-04-18 13:42:00* Test Item Value Reference Range Interpretation Comments Vitamin B12 Level (test code = 24259-4) [address] [facility] Jcmxslm8327-38-98 10:24:00* Test Item Value Reference Range Interpretation Comments Blood Culture (test code = 55418234) NO GROWTH AFTER 5 DAYS, FINAL REPORT [facility] Psoezim5379-26-93 10:24:00* Test Item Value Reference Range Interpretation Comments Blood Culture (test code = 91191007) NO GROWTH AFTER 5 DAYS, FINAL REPORT [facility] Tvqjbxi3140-09-37 10:24:00* Test Item Value Reference Range Interpretation Comments Blood Culture (test code = 81652388) NO GROWTH AFTER 5 DAYS, FINAL REPORT [facility] Ftbcivn8129-33-09 10:24:00* Test Item Value Reference Range Interpretation Comments Blood Culture (test code = 49267939) NO GROWTH AFTER 5 DAYS, FINAL REPORT [facility] Gcixqen8447-58-84 10:24:00* Test Item Value Reference Range Interpretation Comments Blood Culture (test code = 61793607) NO GROWTH AFTER 5 DAYS, FINAL REPORT [facility] Shjlmmz6509-00-16 10:24:00* Test Item Value Reference Range Interpretation Comments Blood Culture (test code = 39807874) NO GROWTH AFTER 5 DAYS, FINAL REPORT [facility]roeDifferential Total Cells Counted 2018-12-22 08:43:00* Test Item Value Reference Range Interpretation Comments Differential Total Cells Counted (test code = Differen tial Total Cells Counted) 100 [facility]roeNeutrophils % (Manual)2018-12-22 08:43:00 * Test Item Value Reference Range Interpretation Comments Neutrophils % (Manual) (test code = 19345-4) 12 40-74 L [facility] ConroeLymphocytes % (Manual)2018-12-22 08:43:00 * Test Item Value Reference Range Interpretation Comments Lymphocytes % (Manual) (test code = 737-7) 28 19-48 [facility] CenterMonocytes % (Manual)2018-12-22 08:43:00* Test Item Value Reference Range Interpretation Comments Monocytes % (Manual) (test code = 744-3) 4 3.4-9.0 [facility]roeEosinophils % (Manual)2018-12-22 08:43:00 * Test Item Value Reference Range Interpretation Comments Eosinophils % (Manual) (test code = 714-6) 56 0-7 H [facility] ConroePlatelet Uqyoujga2804-94-59 08:43:00* Test Item Value Reference Range Interpretation Comments Platelet Estimate (test code = 80343-7) MODERATELY DECREASED [facility] ConroePlatelet Morphology Odgydzo6938-28-55 08:43:00* Test Item Value Reference Range Interpretation Comments Platelet Morphology Comment (test code = 71210-4) FEW GIANT [facility] ConroeRed Cell Morphology Klnirya7538-41-04 08:43:00* Test Item Value Reference Range Interpretation Comments Red Cell Morphology Comment (test code = 6742-1) NORMAL [facility] ConroeDifferential Total Cells Counted 2018-12-22 08:43:00* Test Item Value Reference Range Interpretation Comments Differential Total Cells Counted (test code = Differbipin tial Total Cells Counted) 100 [facility]roeNeutrophils % (Manual)2018-12-22 08:43:00 * Test Item Value Reference Range Interpretation Comments Neutrophils % (Manual) (test code = 56179-8) 12 40-74 L [facility]roeLymphocytes % (Manual)2018-12-22 08:43:00 * Test Item Value Reference Range Interpretation Comments Lymphocytes % (Manual) (test code = 737-7) 28 19-48 [facility] CenterMonocytes % (Manual)2018-12-22 08:43:00* Test Item Value Reference Range Interpretation Comments Monocytes % (Manual) (test code = 744-3) 4 3.4-9.0 [facility]roeEosinophils % (Manual)2018-12-22 08:43:00 * Test Item Value Reference Range Interpretation Comments Eosinophils % (Manual) (test code = 714-6) 56 0-7 H [facility] ConroePlatelet Dridpflk4320-02-44 08:43:00* Test Item Value Reference Range Interpretation Comments Platelet Estimate (test code = 54476-9) MODERATELY DECREASED [facility] ConroePlatelet Morphology Txmkqon2102-80-52 08:43:00* Test Item Value Reference Range Interpretation Comments Platelet Morphology Comment (test code = 56332-9) FEW GIANT [facility]roeRed Cell Morphology Dhlnosn7480-26-37 08:43:00* Test Item Value Reference Range Interpretation Comments Red Cell Morphology Comment (test code = 6742-1) NORMAL [facility] ConroeDifferential Total Cells Counted 2018-12-22 08:43:00* Test Item Value Reference Range Interpretation Comments Differential Total Cells Counted (test code = Differbipin tial Total Cells Counted) 100 [facility]roeNeutrophils % (Manual)2018-12-22 08:43:00 * Test Item Value Reference Range Interpretation Comments Neutrophils % (Manual) (test code = 11688-7) 12 40-74 L [facility]roeLymphocytes % (Manual)2018-12-22 08:43:00 * Test Item Value Reference Range Interpretation Comments Lymphocytes % (Manual) (test code = 737-7) 28 19-48 [facility]roeMonocytes % (Manual)2018-12-22 08:43:00* Test Item Value Reference Range Interpretation Comments Monocytes % (Manual) (test code = 744-3) 4 3.4-9.0 [facility]roeEosinophils % (Manual)2018-12-22 08:43:00 * Test Item Value Reference Range Interpretation Comments Eosinophils % (Manual) (test code = 714-6) 56 0-7 H [facility] ConroePlatelet Ihcfpxsv7458-68-11 08:43:00* Test Item Value Reference Range Interpretation Comments Platelet Estimate (test code = 39078-7) MODERATELY DECREASED [facility] ConroePlatelet Morphology Ctqacoo1860-12-75 08:43:00* Test Item Value Reference Range Interpretation Comments Platelet Morphology Comment (test code = 70399-3) FEW GIANT [facility]roeRed Cell Morphology Tbaftap9038-57-88 08:43:00* Test Item Value Reference Range Interpretation Comments Red Cell Morphology Comment (test code = 6742-1) NORMAL [facility] ConroeDifferential Total Cells Counted 2018-12-22 08:43:00* Test Item Value Reference Range Interpretation Comments Differential Total Cells Counted (test code = Differbipin tial Total Cells Counted) 100 [facility]roeNeutrophils % (Manual)2018-12-22 08:43:00 * Test Item Value Reference Range Interpretation Comments Neutrophils % (Manual) (test code = 31086-8) 12 40-74 L [facility]roeLymphocytes % (Manual)2018-12-22 08:43:00 * Test Item Value Reference Range Interpretation Comments Lymphocytes % (Manual) (test code = 737-7) 28 19-48 [facility]roeMonocytes % (Manual)2018-12-22 08:43:00* Test Item Value Reference Range Interpretation Comments Monocytes % (Manual) (test code = 744-3) 4 3.4-9.0 [facility]roeEosinophils % (Manual)2018-12-22 08:43:00 * Test Item Value Reference Range Interpretation Comments Eosinophils % (Manual) (test code = 714-6) 56 0-7 H [facility] ConroePlatelet Brxjkmvg2600-75-15 08:43:00* Test Item Value Reference Range Interpretation Comments Platelet Estimate (test code = 30898-4) MODERATELY DECREASED [facility] ConroePlatelet Morphology Doislak8301-53-73 08:43:00* Test Item Value Reference Range Interpretation Comments Platelet Morphology Comment (test code = 47830-1) FEW GIANT [facility]roeRed Cell Morphology Mcidqsq8879-70-18 08:43:00* Test Item Value Reference Range Interpretation Comments Red Cell Morphology Comment (test code = 6742-1) NORMAL [facility] ConroePlatelet Jjtbbtcx1214-62-34 08:43:00* Test Item Value Reference Range Interpretation Comments Platelet Estimate (test code = 05637-7) MODERATELY DECREASED [facility] ConroePlatelet Morphology Tvmepgt2279-28-45 08:43:00* Test Item Value Reference Range Interpretation Comments Platelet Morphology Comment (test code = 12308-0) FEW GIANT [facility]roeRed Cell Morphology Cxltqhc6280-48-90 08:43:00* Test Item Value Reference Range Interpretation Comments Red Cell Morphology Comment (test code = 6742-1) NORMAL [facility]roeWhite Blood Yzlnf4015-22-35 06:18:00* Test Item Value Reference Range Interpretation Comments White Blood Count (test code = 6690-2) 11.36 4.8-10.8 H [facility] ConroeRed Blood Wrlja2219-41-47 06:18:00* Test Item Value Reference Range Interpretation Comments Red Blood Count (test code = 789-8) 3.67 4.3-5.7 L [facility]roeHemoglobin2019-09-07 06:18:00* Test Item Value Reference Range Interpretation Comments Hemoglobin (test code = 41038-2) 8.8 14.0-18.0 L [facility]roeHematocrit2019-09-07 06:18:00* Test Item Value Reference Range Interpretation Comments Hematocrit (test code = 4544-3) 28.9 38.2-49.6 L [facility] ConroeMean Corpuscular Bconqh6657-13-52 06:18:00* Test Item Value Reference Range Interpretation Comments Mean Corpuscular Volume (test code = 787-2) 78.7 81-99 L [facility]roeMean Corpuscular Ezvcjjfbmh9995-88-72 06:18:00* Test Item Value Reference Range Interpretation Comments Mean Corpuscular Hemoglobin (test code = 785-6) 24.0 28-32 L [facility]roeMean Corpuscular Hemoglobin Concent 2018-12-22 06:18:00* Test Item Value Reference Range Interpretation Comments Mean Corpuscular Hemoglobin Concent (test code = 786-4) 30.4 31-35 L [facility]roeRed Cell Distribution Zolnx6412-12-07 06:18:00* Test Item Value Reference Range Interpretation Comments Red Cell Distribution Width (test code = 52816-3) 25.1 11.7 -14.4 H [facility] ConroePlatelet Bglsf9865-72-29 06:18:00* Test Item Value Reference Range Interpretation Comments Platelet Count (test code = 777-3) 142 140-360 [facility]roeNeutrophils (%) (Auto)2018-12-22 06:18:00 * Test Item Value Reference Range Interpretation Comments Neutrophils (%) (Auto) (test code = 65954-8) 11.3 38.7-80.0 L [facility]roeLymphocytes (%) (Auto)2018-12-22 06:18:00 * Test Item Value Reference Range Interpretation Comments Lymphocytes (%) (Auto) (test code = 736-9) 27.0 18.0-39.1 [facility]roeMonocytes (%) (Auto)2018-12-22 06:18:00* Test Item Value Reference Range Interpretation Comments Monocytes (%) (Auto) (test code = 5905-5) 4.2 4.4-11.3 L [facility]roeEosinophils (%) (Auto)2018-12-22 06:18:00 * Test Item Value Reference Range Interpretation Comments Eosinophils (%) (Auto) (test code = 713-8) 57.0 0.0-6.0 H [facility]roeBasophils (%) (Auto)2018-12-22 06:18:00* Test Item Value Reference Range Interpretation Comments Basophils (%) (Auto) (test code = 706-2) 0.4 0.0-1.0 [facility]roeIM GRANULOCYTES %2018-12-22 06:18:00* Test Item Value Reference Range Interpretation Comments IM GRANULOCYTES % (test code = IM GRANULOCYTES %) 0.1 0.0- 1.0 [facility]roeNeutrophils # (Auto)2018-12-22 06:18:00* Test Item Value Reference Range Interpretation Comments Neutrophils # (Auto) (test code = 751-8) 1.3 2.1-6.9 L [facility]roeLymphocytes # (Auto)2018-12-22 06:18:00* Test Item Value Reference Range Interpretation Comments Lymphocytes # (Auto) (test code = 95995-9) 3.1 1.0-3.2 [facility]roeMonocytes # (Auto)2018-12-22 06:18:00* Test Item Value Reference Range Interpretation Comments Monocytes # (Auto) (test code = 742-7) 0.5 0.2-0.8 [facility]roeEosinophils # (Auto)2018-12-22 06:18:00* Test Item Value Reference Range Interpretation Comments Eosinophils # (Auto) (test code = 711-2) 6.5 0.0-0.4 H [facility]roeBasophils # (Auto)2018-12-22 06:18:00* Test Item Value Reference Range Interpretation Comments Basophils # (Auto) (test code = 704-7) 0.1 0.0-0.1 [facility]roeAbsolute Immature Granulocyte (auto 2018-12-22 06:18:00* Test Item Value Reference Range Interpretation Comments Absolute Immature Granulocyte (auto (anurag t code = Absolute Immature Granulocyte (auto) 0.01 0-0.1 [facility]roeWhite Blood Wdqeu4791-96-55 06:18:00* Test Item Value Reference Range Interpretation Comments White Blood Count (test code = 6690-2) 11.36 4.8-10.8 H [facility] ConroeRed Blood Ovfcg0575-43-04 06:18:00* Test Item Value Reference Range Interpretation Comments Red Blood Count (test code = 789-8) 3.67 4.3-5.7 L [facility]roeHemoglobin2019-09-07 06:18:00* Test Item Value Reference Range Interpretation Comments Hemoglobin (test code = 68430-6) 8.8 14.0-18.0 L [facility]roeHematocrit2019-09-07 06:18:00* Test Item Value Reference Range Interpretation Comments Hematocrit (test code = 4544-3) 28.9 38.2-49.6 L [facility]roeMean Corpuscular Hzsdvx1529-55-32 06:18:00* Test Item Value Reference Range Interpretation Comments Mean Corpuscular Volume (test code = 787-2) 78.7 81-99 L [facility]roeMean Corpuscular Hkxxmoxvux2500-31-51 06:18:00* Test Item Value Reference Range Interpretation Comments Mean Corpuscular Hemoglobin (test code = 785-6) 24.0 28-32 L [facility] ConroeMean Corpuscular Hemoglobin Concent 2018-12-22 06:18:00* Test Item Value Reference Range Interpretation Comments Mean Corpuscular Hemoglobin Concent (test code = 786-4) 30.4 31-35 L [facility] ConroeRed Cell Distribution Pquhf8451-08-73 06:18:00* Test Item Value Reference Range Interpretation Comments Red Cell Distribution Width (test code = 89967-1) 25.1 11.7 -14.4 H [facility] ConroePlatelet Pfsfq8052-61-58 06:18:00* Test Item Value Reference Range Interpretation Comments Platelet Count (test code = 777-3) 142 140-360 [facility]roeNeutrophils (%) (Auto)2018-12-22 06:18:00 * Test Item Value Reference Range Interpretation Comments Neutrophils (%) (Auto) (test code = 18425-3) 11.3 38.7-80.0 L [facility]roeLymphocytes (%) (Auto)2018-12-22 06:18:00 * Test Item Value Reference Range Interpretation Comments Lymphocytes (%) (Auto) (test code = 736-9) 27.0 18.0-39.1 [facility]roeMonocytes (%) (Auto)2018-12-22 06:18:00* Test Item Value Reference Range Interpretation Comments Monocytes (%) (Auto) (test code = 5905-5) 4.2 4.4-11.3 L [facility]roeEosinophils (%) (Auto)2018-12-22 06:18:00 * Test Item Value Reference Range Interpretation Comments Eosinophils (%) (Auto) (test code = 713-8) 57.0 0.0-6.0 H [facility]roeBasophils (%) (Auto)2018-12-22 06:18:00* Test Item Value Reference Range Interpretation Comments Basophils (%) (Auto) (test code = 706-2) 0.4 0.0-1.0 [facility]roeIM GRANULOCYTES %2018-12-22 06:18:00* Test Item Value Reference Range Interpretation Comments IM GRANULOCYTES % (test code = IM GRANULOCYTES %) 0.1 0.0- 1.0 [facility]roeNeutrophils # (Auto)2018-12-22 06:18:00* Test Item Value Reference Range Interpretation Comments Neutrophils # (Auto) (test code = 751-8) 1.3 2.1-6.9 L [facility]roeLymphocytes # (Auto)2018-12-22 06:18:00* Test Item Value Reference Range Interpretation Comments Lymphocytes # (Auto) (test code = 29514-6) 3.1 1.0-3.2 [facility]roeMonocytes # (Auto)2018-12-22 06:18:00* Test Item Value Reference Range Interpretation Comments Monocytes # (Auto) (test code = 742-7) 0.5 0.2-0.8 [facility]roeEosinophils # (Auto)2018-12-22 06:18:00* Test Item Value Reference Range Interpretation Comments Eosinophils # (Auto) (test code = 711-2) 6.5 0.0-0.4 H [facility]roeBasophils # (Auto)2018-12-22 06:18:00* Test Item Value Reference Range Interpretation Comments Basophils # (Auto) (test code = 704-7) 0.1 0.0-0.1 [facility]roeAbsolute Immature Granulocyte (auto 2018-12-22 06:18:00* Test Item Value Reference Range Interpretation Comments Absolute Immature Granulocyte (auto (anurag t code = Absolute Immature Granulocyte (auto) 0.01 0-0.1 [facility] Eokuxot9344-73-79 20:16:00* Test Item Value Reference Range Interpretation Comments Bedside Glucose (test code = 58171-5) 238 70-120 H Meter ID: [id number] Regional Medical Centerside Glucose 2018-12-21 20:16:00* Test Item Value Reference Range Interpretation Comments Bedside Glucose (test code = 23249-0) 238 70-120 H Meter ID: [id number] [facility] Healthcare ConroeBlood Culture 2018-12-21 10:25:00* Test Item Value Reference Range Interpretation Comments Blood Culture (test code = 87833297) NO GROWTH AFTER [address] Hospitalodium Ntsde1097-60-66 06:03:00* Test Item Value Reference Range Interpretation Comments Sodium Level (test code = 2951-2) 138 136-145 [facility]roePotassium Vtkft6878-63-61 06:03:00* Test Item Value Reference Range Interpretation Comments Potassium Level (test code = 2823-3) 3.6 3.5-5.1 [facility] ConroeChloride Hikgd3410-36-25 06:03:00* Test Item Value Reference Range Interpretation Comments Chloride Level (test code = 2075-0) 107 98-107 [facility] ConroeCarbon Dioxide Yuflb8379-45-43 06:03:00* Test Item Value Reference Range Interpretation Comments Carbon Dioxide Level (test code = 2028-9) 23 22-29 [facility] ConroeAnion Fzv4906-43-83 06:03:00* Test Item Value Reference Range Interpretation Comments Anion Gap (test code = 39784-6) 11.6 8-16 [facility]roeBlood Urea Glfswkuq5624-11-55 06:03:00* Test Item Value Reference Range Interpretation Comments Blood Urea Nitrogen (test code = 3094-0) 8 7-26 [facility] ConroeCreatinine2019-09-06 06:03:00* Test Item Value Reference Range Interpretation Comments Creatinine (test code = 2160-0) 0.86 0.72-1.25 [facility] ConroeBUN/Creatinine Ldroc5873-97-26 06:03:00* Test Item Value Reference Range Interpretation Comments BUN/Creatinine Ratio (test code = 3097-3) 9 6-25 [facility] ConroeEstimat Glomerular Filtration Rate 2018-12-21 06:03:00* Test Item Value Reference Range Interpretation Comments Estimat Glomerular Filtration Rate (test code = 140728829) > 60 >60 Ranges were taken from the National Kidney Disease Education Program and the [facility] Foundation literature.Reference ranges:60 or greater: Uujwkb90-48 ( for 3 consecutive months): Chronic kidney disease 15 or less: Kidney failureHCA Houston Healthcare ConroeGlucose Frzky3025-17-77 06:03:00* Test Item Value Reference Range Interpretation Comments Glucose Level (test code = LHD2190) 134 74-118 H [facility] ConroeCalcium Rltwd3665-79-43 06:03:00* Test Item Value Reference Range Interpretation Comments Calcium Level (test code = 45668-4) 8.8 8.4-10.[address] [facility] Hospitalodium Rigci6935-75-85 06:03:00* Test Item Value Reference Range Interpretation Comments Sodium Level (test code = 2951-2) 138 136-145 [facility] [facility]roePotassium Zpiat3140-47-55 06:03:00* Test Item Value Reference Range Interpretation Comments Potassium Level (test code = 2823-3) 3.6 3.5-5.1 [facility]roeChloride Mghdj6761-04-71 06:03:00* Test Item Value Reference Range Interpretation Comments Chloride Level (test code = 2075-0) 107 98-107 [facility]roeCarbon Dioxide Nbqjj8645-47-22 06:03:00* Test Item Value Reference Range Interpretation Comments Carbon Dioxide Level (test code = 2028-9) 23 22-29 [facility]roeAnion Yet5534-59-91 06:03:00* Test Item Value Reference Range Interpretation Comments Anion Gap (test code = 56716-1) 11.6 8-16 [facility]roeBlood Urea Rkvtlooq9186-33-90 06:03:00* Test Item Value Reference Range Interpretation Comments Blood Urea Nitrogen (test code = 3094-0) 8 7-26 [facility]roeCreatinine2019-09-06 06:03:00* Test Item Value Reference Range Interpretation Comments Creatinine (test code = 2160-0) 0.86 0.72-1.25 [facility]roeBUN/Creatinine Tijhu7603-03-17 06:03:00* Test Item Value Reference Range Interpretation Comments BUN/Creatinine Ratio (test code = 3097-3) 9 6- [facility] ConroeEstimat Glomerular Filtration Rate 2018-12-21 06:03:00* Test Item Value Reference Range Interpretation Comments Estimat Glomerular Filtration Rate (test code = 282086628) > 60 >60 Ranges were taken from the National Kidney Disease Education Program and the [facility] Foundation literature.Reference ranges:60 or greater: Mnvscd70-70 ( for 3 consecutive months): Chronic kidney disease 15 or less: Kidney failureHCA [facility] Healthcare ConroeGlucose Xsijv7559-55-17 06:03:00* Test Item Value Reference Range Interpretation Comments Glucose Level (test code = KCT6125) 134 74-118 H [facility]roeCalcium Kjaod1593-59-91 06:03:00* Test Item Value Reference Range Interpretation Comments Calcium Level (test code = 54742-5) 8.8 8.4-10.2 [facility]roePoikilocytosis2019-09-05 08:37:00* Test Item Value Reference Range Interpretation Comments Poikilocytosis (test code = 779-9) MODERATE [facility]roeAnisocytosis2019-09-05 08:37:00* Test Item Value Reference Range Interpretation Comments Anisocytosis (test code = 702-1) SLIGHT [facility] ConroeOvalocytes2019-09-05 08:37:00* Test Item Value Reference Range Interpretation Comments Ovalocytes (test code = 774-0) FEW [facility]roeElliptocytes2019-09-05 08:37:00* Test Item Value Reference Range Interpretation Comments Elliptocytes (test code = 56517-9) SLIGHT [facility]roePoikilocytosis2019-09-05 08:37:00* Test Item Value Reference Range Interpretation Comments Poikilocytosis (test code = 779-9) MODERATE [facility]roeAnisocytosis2019-09-05 08:37:00* Test Item Value Reference Range Interpretation Comments Anisocytosis (test code = 702-1) SLIGHT [facility]2019-09-05 08:37:00* Test Item Value Reference Range Interpretation Comments Ovalocytes (test code = 774-0) FEW [facility]2019-09-05 08:37:00* Test Item Value Reference Range Interpretation Comments Elliptocytes (test code = 86858-1) SLIGHT [facility]roePoikilocytosis2019-09-05 08:37:00* Test Item Value Reference Range Interpretation Comments Poikilocytosis (test code = 779-9) [facility]ERATE [facility] 08:37:00* Test Item Value Reference Range Interpretation Comments Anisocytosis (test code = 702-1) SLIGHT [facility]roeOvalocytes2019-09-05 08:37:00* Test Item Value Reference Range Interpretation Comments Ovalocytes (test code = 774-0) FEW [facility]roeElliptocytes2019-09-05 08:37:00* Test Item Value Reference Range Interpretation Comments Elliptocytes (test code = 96915-7) [facility]IGHT [facility] 08:37:00* Test Item Value Reference Range Interpretation Comments Poikilocytosis (test code = 779-9) MODERATE [facility]2019-09-05 08:37:00* Test Item Value Reference Range Interpretation Comments Anisocytosis (test code = 702-1) SLIGHT [facility]roeOvalocytes2019-09-05 08:37:00* Test Item Value Reference Range Interpretation Comments Ovalocytes (test code = 774-0) FEW [facility]roeElliptocytes2019-09-05 08:37:00* Test Item Value Reference Range Interpretation Comments Elliptocytes (test code = 58214-0) SLIGHT [facility]roePoikilocytosis2019-09-05 08:37:00* Test Item Value Reference Range Interpretation Comments Poikilocytosis (test code = 779-9) MODERATE [facility]roeAnisocytosis2019-09-05 08:37:00* Test Item Value Reference Range Interpretation Comments Anisocytosis (test code = 702-1) SLIGHT [facility]2019-09-05 08:37:00* Test Item Value Reference Range Interpretation Comments Ovalocytes (test code = 774-0) FEW [facility]roeElliptocytes2019-09-05 08:37:00* Test Item Value Reference Range Interpretation Comments Elliptocytes (test code = 49257-4) SLIGHT [facility] 08:37:00* Test Item Value Reference Range Interpretation Comments Poikilocytosis (test code = 779-9) MODERATE [facility] Azlesocytosis2019-09-05 08:37:00* Test Item Value Reference Range Interpretation Comments Anisocytosis (test code = 702-1) SLIGHT [facility]roeOvalocytes2019-09-05 08:37:00* Test Item Value Reference Range Interpretation Comments Ovalocytes (test code = 774-0) FEW [facility]roeElliptocytes2019-09-05 08:37:00* Test Item Value Reference Range Interpretation Comments Elliptocytes (test code = 75391-4) SLIGHT [facility]2019-09-05 08:37:00* Test Item Value Reference Range Interpretation Comments Poikilocytosis (test code = 779-9) MODERATE [facility]roeAnisocytosis2019-09-05 08:37:00* Test Item Value Reference Range Interpretation Comments Anisocytosis (test code = 702-1) SLIGHT [facility]roeOvalocytes2019-09-05 08:37:00* Test Item Value Reference Range Interpretation Comments Ovalocytes (test code = 774-0) FEW [facility]roeElliptocytes2019-09-05 08:37:00* Test Item Value Reference Range Interpretation Comments Elliptocytes (test code = 03700-6) SLIGHT [facility]roeCreatine Kinase ML6005-90-27 07:59:00* Test Item Value Reference Range Interpretation Comments Creatine Kinase MB (test code = 00799-0) 0.60 0-5.0 [facility]roeTroponin [id number] 07:59:00* Test Item Value Reference Range Interpretation Comments Troponin I (test code = CIA6051) 0.006 0-0.300 [facility]roeCreatine Kinase [id number] 07:59:00* Test Item Value Reference Range Interpretation Comments Creatine Kinase MB (test code = 15958-1) 0.60 0-5.0 [place] 02058019-09-05 07:59:00* Test Item Value Reference Range Interpretation Comments Troponin I (test code = JYC4473) 0.006 0-0.300 [facility]roeCreatine Gerbse3424-06-81 07:53:00* Test Item Value Reference Range Interpretation Comments Creatine Kinase (test code = 2157-6) 46 30-200 [facility]roeCreatine Gfqzjn6278-60-34 07:53:00* Test Item Value Reference Range Interpretation Comments Creatine Kinase (test code = 2157-6) 46 30-200 [facility] ConroeClostridium Difficile Toxin A & B 2018-12-20 06:33:00* Test Item Value Reference Range Interpretation Comments Clostridium Difficile Toxin A & B (test code = 911917153) NEGATIVE NEGATIVE Testing on stool aspirate specimens is outside executive director global brand marketing claims since specime n type not validated on this assay.[facility] Clostridium Difficile Toxin A & [id number] 06:33:00* Test Item Value Reference Range Interpretation Comments Clostridium Difficile Toxin A & B (test code = 266735449) NEGATIVE NEGATIVE Testing on stool aspirate specimens is outside executive director global brand marketing claims since specime n type not validated on this assay.[facility] Clostridium Difficile Toxin A & [id number] 06:33:00* Test Item Value Reference Range Interpretation Comments Clostridium Difficile Toxin A & B (test code = 978116272) NEGATIVE NEGATIVE Testing on stool aspirate specimens is outside executive director global brand marketing claims since specime n type not validated on this assay.[facility] Clostridium Difficile Toxin A & [id number] 06:33:00* Test Item Value Reference Range Interpretation Comments Clostridium Difficile Toxin A & B (test code = 332131576) NEGATIVE NEGATIVE Testing on stool aspirate specimens is outside executive director global brand marketing claims since specime n type not validated on this assay.[facility] Clostridium Difficile Toxin A & [id number] 06:33:00* Test Item Value Reference Range Interpretation Comments Clostridium Difficile Toxin A & B (test code = 694441856) NEGATIVE NEGATIVE Testing on stool aspirate specimens is outside executive director global brand marketing claims since specime n type not validated on this assay.[facility] Clostridium Difficile Toxin A & [id number] 06:33:00* Test Item Value Reference Range Interpretation Comments Clostridium Difficile Toxin A & B (test code = 204454031) NEGATIVE NEGATIVE Testing on stool aspirate specimens is outside executive director global brand marketing claims since specime n type not validated on this assay.[facility] Clostridium Difficile Toxin A & [id number] 06:33:00* Test Item Value Reference Range Interpretation Comments Clostridium Difficile Toxin A & B (test code = 572289921) NEGATIVE NEGATIVE Testing on stool aspirate specimens is outside executive director global brand marketing claims since specime n type not validated on this assay.[facility]roeTotal Zorgmiild7370-85-51 06:09:00* Test Item Value Reference Range Interpretation Comments Total Bilirubin (test code = 1975-2) 1.0 0.2-1.2 [facility] ConroeAspartate Amino Transf (AST/SGOT) 2018-12-20 06:09:00* Test Item Value Reference Range Interpretation Comments Aspartate Amino Transf (AST/SGOT) (test code = Aspartate Amino Transf (AST/SGOT)) 20 5-34 [facility]roeAlanine Aminotransferase (ALT/SGPT) 2018-12-20 06:09:00* Test Item Value Reference Range Interpretation Comments Alanine Aminotransferase (ALT/SGPT) (test code = 1742-6) 15 0-55 [facility]roeTotal Vmfxhnr4263-49-43 06:09:00* Test Item Value Reference Range Interpretation Comments Total Protein (test code = 2885-2) 5.2 6.5-8.1 L [facility]roeAlbumin2019-09-05 06:09:00* Test Item Value Reference Range Interpretation Comments Albumin (test code = 1751-7) 2.8 3.5-5.0 L [facility]roeGlobulin2019-09-05 06:09:00* Test Item Value Reference Range Interpretation Comments Globulin (test code = 33963-8) 2.4 2.3-3.5 [facility]roeAlbumin/Globulin Rdgqk2608-15-62 06:09:00 * Test Item Value Reference Range Interpretation Comments Albumin/Globulin Ratio (test code = 1759-0) 1.2 0.8-2.0 [facility]roeAlkaline Gcdybmssmnm1465-45-42 06:09:00* Test Item Value Reference Range Interpretation Comments Alkaline Phosphatase (test code = 6768-6) 82 40-150 [facility]roeLipase2019-09-05 06:09:00* Test Item Value Reference Range Interpretation Comments Lipase (test code = 3040-3) 25 8-78 [facility]roeTotal Fyhtuvqny0738-63-93 06:09:00* Test Item Value Reference Range Interpretation Comments Total Bilirubin (test code = 1975-2) 1.0 0.2-1.2 [facility]roeAspartate Amino Transf (AST/SGOT) 2018-12-20 06:09:00* Test Item Value Reference Range Interpretation Comments Aspartate Amino Transf (AST/SGOT) (test code = Aspartate Amino Transf (AST/SGOT)) 20 5-34 [facility]roeAlanine Aminotransferase (ALT/SGPT) 2018-12-20 06:09:00* Test Item Value Reference Range Interpretation Comments Alanine Aminotransferase (ALT/SGPT) (test code = 1742-6) 15 0-55 [facility]roeTotal Ytzlbrd6281-63-72 06:09:00* Test Item Value Reference Range Interpretation Comments Total Protein (test code = 2885-2) 5.2 6.5-8.1 L [facility]roeAlbumin2019-09-05 06:09:00* Test Item Value Reference Range Interpretation Comments Albumin (test code = 1751-7) 2.8 3.5-5.0 L [facility]roeGlobulin2019-09-05 06:09:00* Test Item Value Reference Range Interpretation Comments Globulin (test code = 33786-0) 2.4 2.3-3.5 [facility]roeAlbumin/Globulin Wywvd4752-95-53 06:09:00 * Test Item Value Reference Range Interpretation Comments Albumin/Globulin Ratio (test code = 1759-0) 1.2 0.8-2.0 [facility]roeAlkaline Zweaokezwql3504-82-11 06:09:00* Test Item Value Reference Range Interpretation Comments Alkaline Phosphatase (test code = 6768-6) 82 40-150 [facility]roeLipase2019-09-05 06:09:00* Test Item Value Reference Range Interpretation Comments Lipase (test code = 3040-3) [facility]roeLipase2019-09-05 06:09:00* Test Item Value Reference Range Interpretation Comments Lipase (test code = 3040-3) [facility]roeLipase2019-09-05 06:09:00* Test Item Value Reference Range Interpretation Comments Lipase (test code = 3040-3) [facility]roeLipase2019-09-05 06:09:00* Test Item Value Reference Range Interpretation Comments Lipase (test code = 3040-3) [facility]roeLipase2019-09-05 06:09:00* Test Item Value Reference Range Interpretation Comments Lipase (test code = 3040-3) [facility]roeLipase2019-09-05 06:09:00* Test Item Value Reference Range Interpretation Comments Lipase (test code = 3040-3) [facility]roeBand Neutrophils %2018-12-19 19:42:00* Test Item Value Reference Range Interpretation Comments Band Neutrophils % (test code = 764-1) 1 [facility]roeBasophils % (Manual)2018-12-19 19:42:00* Test Item Value Reference Range Interpretation Comments Basophils % (Manual) (test code = 92036-8) 1 0-1.5 [facility] ConroeReactive Otjfplvoxbe3631-17-22 19:42:00* Test Item Value Reference Range Interpretation Comments Reactive Lymphocytes (test code = 52716-4) 4 [facility] ConroeHypochromasia2019-09-04 19:42:00* Test Item Value Reference Range Interpretation Comments Hypochromasia (test code = 728-6) [facility]-19 19:42:00* Test Item Value Reference Range Interpretation Comments Band Neutrophils % (test code = 764-1) 1 [facility]Basophils % (Manual)2018-12-19 19:42:00* Test Item Value Reference Range Interpretation Comments Basophils % (Manual) (test code = 26999-6) 1 0-1.5 [facility]roeReactive Zluzuwxjqqu3038-46-42 19:42:00* Test Item Value Reference Range Interpretation Comments Reactive Lymphocytes (test code = 48317-8) 4 [facility] 19:42[facility]* Test Item Value Reference Range Interpretation Comments Hypochromasia (test code = 728-6) [facility] %2018-12-19 19:42:00* Test Item Value Reference Range Interpretation Comments Band Neutrophils % (test code = 764-1) 1 [facility]Basophils % (Manual)2018-12-19 19:42:00* Test Item Value Reference Range Interpretation Comments Basophils % (Manual) (test code = 07358-3) 1 0-1.5 [facility]roeReactive Bkzwmmzjasb5674-85-71 19:42:00* Test Item Value Reference Range Interpretation Comments Reactive Lymphocytes (test code = 58351-9) 4 [facility]roeHypochromasia2019-09-04 19:42:00* Test Item Value Reference Range Interpretation Comments Hypochromasia (test code = 728-6) [facility] %2018-12-19 19:42:00* Test Item Value Reference Range Interpretation Comments Band Neutrophils % (test code = 764-1) 1 [facility]Basophils % (Manual)2018-12-19 19:42:00* Test Item Value Reference Range Interpretation Comments Basophils % (Manual) (test code = 30823-8) 1 0-1.5 [facility]Rek[facility] Lgxctpkbrbq5485-97-42 19:42:00* Test Item Value Reference Range Interpretation Comments Reactive Lymphocytes (test code = 17110-8) 4 [facility] 19:42:00* Test Item Value Reference Range Interpretation Comments Hypochromasia (test code = 728-6) [facility] %2018-12-19 19:42:00* Test Item Value Reference Range Interpretation Comments Band Neutrophils % (test code = 764-1) 1 [facility]Basophils % (Manual)2018-12-19 19:42:00* Test Item Value Reference Range Interpretation Comments Basophils % (Manual) (test code = 20954-1) 1 0-1.5 [facility]roeReactive Jehxghyenqb0139-21-09 19:42:00* Test Item Value Reference Range Interpretation Comments Reactive Lymphocytes (test code = 09124-2) 4 [facility]roeHypochromasia2019-09-04 19:42:00* Test Item Value Reference Range Interpretation Comments Hypochromasia (test code = 728-6) SLIG [facility]roeBand Neutrophils %2018-12-19 19:42:00* Test Item Value Reference Range Interpretation Comments Band Neutrophils % (test code = 764-1) 1 [facility]roeBasophils % (Manual)2018-12-19 19:42:00* Test Item Value Reference Range Interpretation Comments Basophils % (Manual) (test code = 09006-6) 1 0-1.5 [facility] ConroeReactive Urfgzdomhcl4157-31-67 19:42:00* Test Item Value Reference Range Interpretation Comments Reactive Lymphocytes (test code = 89885-5) 4 [facility]roeBand Neutrophils %2018-12-19 19:42:00* Test Item Value Reference Range Interpretation Comments Band Neutrophils % (test code = 764-1) 1 [facility]roeBasophils % (Manual)2018-12-19 19:42:00* Test Item Value Reference Range Interpretation Comments Basophils % (Manual) (test code = 07029-1) 1 0-1.5 [facility]roeReactive Vfxldpsxkka5903-62-49 19:42:00* Test Item Value Reference Range Interpretation Comments Reactive Lymphocytes (test code = 05003-3) 4 [facility] ConroeLactic Acid Mgncq5115-95-60 14:20:00* Test Item Value Reference Range Interpretation Comments Lactic Acid Level (test code = Lactic Acid Level) 16.5 4.5- 19.8 [facility] ConroeLactic Acid Vykil1568-63-85 14:20:00* Test Item Value Reference Range Interpretation Comments Lactic Acid Level (test code = Lactic Acid Level) 16.5 4.5- 19.8 [facility] ConroeLactic Acid Diyfp6242-22-69 14:20:00* Test Item Value Reference Range Interpretation Comments Lactic Acid Level (test code = Lactic Acid Level) 16.5 4.5- 19.8 [facility] ConroeLactic Acid Zigrn2913-77-81 14:20:00* Test Item Value Reference Range Interpretation Comments Lactic Acid Level (test code = Lactic Acid Level) 16.5 4.5- 19.8 [facility] ConroeLactic Acid Csqcf4131-33-18 14:20:00* Test Item Value Reference Range Interpretation Comments Lactic Acid Level (test code = Lactic Acid Level) 16.5 4.5- 19.8 [facility] ConroeLamoic Acid Ybgln6680-18-42 14:20:00* Test Item Value Reference Range Interpretation Comments Lactic Acid Level (test code = Lactic Acid Level) 16.5 4.5- 19.8 [facility] ConroeLamoic Acid Bswxl4705-29-82 14:20:00* Test Item Value Reference Range Interpretation Comments Lactic Acid Level (test code = Lactic Acid Level) 16.5 4.5- 19.8 [facility]roeCT ABDOMEN/PELVIS [id number] 12:00:00 [facility] [address] [place] [address] Patient Name: CARLITO ROCK MR #: [id number] : [id number] Age/Sex: 78/M Req #: [id number] Adm Physician: LEOLA PONCE MD Ordered by: SALLIE ANDRE MD, MD Report #: [id number] Location: [facility] Room[place]Bed: [place] [address] Procedure: 0904-[address]/CT ABDOMEN/PELVIS W Exam [...] 12/19/18 1208 COPY TO: SALLIE ANDRE Magnesium Pllyl9486-77-73 11:09:00* Test Item Value Reference Range Interpretation Comments Magnesium Level (test code = 54646-5) 1.7 1.3-2.1 [facility]2019-09-04 11:09:00* Test Item Value Reference Range Interpretation Comments Magnesium Level (test code = 13519-2) 1.7 1.3-2.1 [facility]2019-09-04 11:09:00* Test Item Value Reference Range Interpretation Comments Magnesium Level (test code = 72861-3) 1.7 1.3-2.1 [facility]2019-09-04 11:09:00* Test Item Value Reference Range Interpretation Comments Magnesium Level (test code = 35440-4) 1.7 1.3-2.1 [facility]2019-09-04 11:09:00* Test Item Value Reference Range Interpretation Comments Magnesium Level (test code = 15966-9) 1.7 1.3-2.1 [facility]2019-09-04 11:09:00* Test Item Value Reference Range Interpretation Comments Magnesium Level (test code = 16764-1) 1.7 1.3-2.1 [facility]2019-09-04 11:09:00* Test Item Value Reference Range Interpretation Comments Magnesium Level (test code = 84430-0) 1.7 1.3-2.1 [facility]roeB-Type Natriuretic Nlltyrk9821-06-16 10:56:00* Test Item Value Reference Range Interpretation Comments B-Type Natriuretic Peptide (test code = 47378-0) 16.0 0-100 [facility]roeB-Type Natriuretic Hmmiqyu2907-22-88 10:56:00* Test Item Value Reference Range Interpretation Comments B-Type Natriuretic Peptide (test code = 67215-3) 16.0 0-100 [facility] [id number] 09:59:00* Test Item Value Reference Range Interpretation Comments Urine WBC (test code = 5821-4) 6-10 0-5 H [facility] VJJ3742-67-40 09:59:00* Test Item Value Reference Range Interpretation Comments Urine RBC (test code = 59832-7) 0-5 0-5 [facility] Uuwjdawi1847-99-94 09:59:00* Test Item Value Reference Range Interpretation Comments Urine Bacteria (test code = 20764-2) MODERATE NONE [facility] Epithelial Ztcyt9648-99-76 09:59:00 * Test Item Value Reference Range Interpretation Comments Urine Epithelial Cells (test code = 30399-8) MODERATE NONE [facility] Lkkyb5143-19-92 09:59:00* Test Item Value Reference Range Interpretation Comments Urine Mucus (test code = 8247-9) MANY RARE H [facility] [id number] 09:59:00* Test Item Value Reference Range Interpretation Comments Urine WBC (test code = 5821-4) 6-10 0-5 [facility] OQO8989-98-90 09:59:00* Test Item Value Reference Range Interpretation Comments Urine RBC (test code = 14182-4) 0-5 0-5 [facility] Umdxiywo9699-30-11 09:59:00* Test Item Value Reference Range Interpretation Comments Urine Bacteria (test code = 69219-5) MODERATE NONE H [facility]roeUrine Epithelial Rgfye5718-27-08 09:59:00 * Test Item Value Reference Range Interpretation Comments Urine Epithelial Cells (test code = 48273-1) MODERATE NONE [facility] Mvifv2701-61-46 09:59:00* Test Item Value Reference Range Interpretation Comments Urine Mucus (test code = 8247-9) MANY RARE H [facility] FHT0768-94-87 09:59:00* Test Item Value Reference Range Interpretation Comments Urine WBC (test code = 5821-4) 6-10 0-5 [facility] BFK7171-29-23 09:59:00* Test Item Value Reference Range Interpretation Comments Urine RBC (test code = 18585-3) 0-5 0-5 [facility] Mgfwwppd2037-88-28 09:59:00* Test Item Value Reference Range Interpretation Comments Urine Bacteria (test code = 91364-3) MODERATE NONE [facility] Epithelial Tvmaw8866-15-09 09:59:00 * Test Item Value Reference Range Interpretation Comments Urine Epithelial Cells (test code = 17932-9) MODERATE NONE [facility] Sjvej2722-95-69 09:59:00* Test Item Value Reference Range Interpretation Comments Urine Mucus (test code = 8247-9) MANY RARE H [facility] [id number] 09:59:00* Test Item Value Reference Range Interpretation Comments Urine WBC (test code = 5821-4) 6-10 0-5 H [facility] [id number] 09:59:00* Test Item Value Reference Range Interpretation Comments Urine RBC (test code = 05260-0) 0-5 0-5 [facility] Fmscywco2843-55-84 09:59:00* Test Item Value Reference Range Interpretation Comments Urine Bacteria (test code = 64640-0) MODERATE NONE H [facility] Epithelial Crqmo1099-48-19 09:59:00 * Test Item Value Reference Range Interpretation Comments Urine Epithelial Cells (test code = 78260-3) MODERATE NONE [facility] Noyof1965-45-64 09:59:00* Test Item Value Reference Range Interpretation Comments Urine Mucus (test code = 8247-9) MANY RARE H [facility] EVA0563-60-17 09:59:00* Test Item Value Reference Range Interpretation Comments Urine WBC (test code = 5821-4) 6-10 0-5 H [facility] MIS5134-75-86 09:59:00* Test Item Value Reference Range Interpretation Comments Urine RBC (test code = 79962-5) 0-5 0-5 [facility] Zbgiwetj4021-10-53 09:59:00* Test Item Value Reference Range Interpretation Comments Urine Bacteria (test code = 24288-2) MODERATE NONE [facility] Oaova8900-55-93 09:59:00 * Test Item Value Reference Range Interpretation Comments Urine Epithelial Cells (test code = 04295-2) MODERATE NONE [facility] Ixfkz9410-96-01 09:59:00* Test Item Value Reference Range Interpretation Comments Urine Mucus (test code = 8247-9) MANY RARE H [facility] ZMO4993-92-78 09:59:00* Test Item Value Reference Range Interpretation Comments Urine WBC (test code = 5821-4) 6-10 0-5 H [facility] COU2831-01-36 09:59:00* Test Item Value Reference Range Interpretation Comments Urine RBC (test code = 14634-0) 0-5 0-5 [facility] Wutztekp6340-24-60 09:59:00* Test Item Value Reference Range Interpretation Comments Urine Bacteria (test code = 74232-3) MODERATE NONE [facility] Jvtyi9142-63-11 09:59:00 * Test Item Value Reference Range Interpretation Comments Urine Epithelial Cells (test code = 97332-7) MODERATE NONE [facility] Rxyvy3033-46-08 09:59:00* Test Item Value Reference Range Interpretation Comments Urine Mucus (test code = 8247-9) MANY RARE H [facility] NLW6654-34-90 09:59:00* Test Item Value Reference Range Interpretation Comments Urine WBC (test code = 5821-4) 6-10 0-5 H [facility] AOC1720-60-53 09:59:00* Test Item Value Reference Range Interpretation Comments Urine RBC (test code = 20685-7) 0-5 0-5 [facility] Vienvsps4838-46-92 09:59:00* Test Item Value Reference Range Interpretation Comments Urine Bacteria (test code = 32969-0) MODERATE NONE [facility] Ep[facility]helial Qbruv9065-26-21 09:59:00 * Test Item Value Reference Range Interpretation Comments Urine Epithelial Cells (test code = 45468-2) MODERATE NONE [facility] Egnza2872-78-96 09:59:00* Test Item Value Reference Range Interpretation Comments Urine Mucus (test code = 8247-9) MANY RARE H [facility] Mrpaw7887-90-36 09:49:00* Test Item Value Reference Range Interpretation Comments Urine Color (test code = 5778-6) [facility] Jpjmdhv5396-03-05 09:49:00* Test Item Value Reference Range Interpretation Comments Urine Clarity (test code = 40600-6) SL CLOUDY CLEAR [facility] Specific Lucjmqs5992-11-48 09:49:00 * Test Item Value Reference Range Interpretation Comments Urine Specific [place] (test code = 5811-5) >=1.030 1.010-1.02 5 [facility] fG4044-90-67 09:49:00* Test Item Value Reference Range Interpretation Comments Urine pH (test code = 12281-2) 6 5-7 [facility] Leukocyte Xdfewblr8649-95-14 09:49:00* Test Item Value Reference Range Interpretation Comments Urine Leukocyte Esterase (test code = 12415-8) NEGATIVE NEGATIV E [facility] Mxndnbm8040-83-64 09:49:00* Test Item Value Reference Range Interpretation Comments Urine Nitrite (test code = 97356-4) NEGATIVE NEGATIVE [facility] Zwjcark9126-51-85 09:49:00* Test Item Value Reference Range Interpretation Comments Urine Protein (test code = 73740-0) 1+ NEGATIVE H [facility] Glucose (UA)2018-12-19 09:49:00* Test Item Value Reference Range Interpretation Comments Urine Glucose (UA) (test code = 41326-2) NEGATIVE NEGATIVE [facility] Euosyor7284-44-08 09:49:00* Test Item Value Reference Range Interpretation Comments Urine Ketones (test code = 25335-7) 1+ NEGATIVE H [facility] Wsopvevrdhtg1882-33-29 09:49:00* Test Item Value Reference Range Interpretation Comments Urine Urobilinogen (test code = 95066-2) 0.2 0.2-1 [facility] Edtttgqhz9436-05-10 09:49:00* Test Item Value Reference Range Interpretation Comments Urine Bilirubin (test code = 1977-8) NEGATIVE NEGATIVE [facility] Umyzo7415-83-75 09:49:00* Test Item Value Reference Range Interpretation Comments Urine Blood (test code = 29405-2) NEGATIVE NEGATIVE [facility] Cmeib2553-44-65 09:49:00* Test Item Value Reference Range Interpretation Comments Urine Color (test code = 5778-6) ORANGE YELLOW H [facility] Mvubhse6404-37-70 09:49:00* Test Item Value Reference Range Interpretation Comments Urine Clarity (test code = 33582-7) SL CLOUDY CLEAR [facility] Specific Bigkqnz2937-54-80 09:49:00 * Test Item Value Reference Range Interpretation Comments Urine Specific [place] (test code = 5811-5) >=1.030 1.010-1.02 5 [facility] pZ6011-92-47 09:49:00* Test Item Value Reference Range Interpretation Comments Urine pH (test code = 38268-9) 6 5-7 [facility] Leukocyte Zevhjdml8202-40-23 09:49:00* Test Item Value Reference Range Interpretation Comments Urine Leukocyte Esterase (test code = 47641-8) NEGATIVE NEGATIV E [facility] Mlrjney0914-86-83 09:49:00* Test Item Value Reference Range Interpretation Comments Urine Nitrite (test code = 40334-6) NEGATIVE NEGATIVE [facility] Qzbkxsb1521-30-82 09:49:00* Test Item Value Reference Range Interpretation Comments Urine Protein (test code = 87283-5) 1+ NEGATIVE H [facility] Glucose (UA)2018-12-19 09:49:00* Test Item Value Reference Range Interpretation Comments Urine Glucose (UA) (test code = 33490-5) NEGATIVE NEGATIVE [facility] Erxhcro7052-70-07 09:49:00* Test Item Value Reference Range Interpretation Comments Urine Ketones (test code = 39593-0) 1+ NEGATIVE H [facility] Jaedgvtukbuo7325-09-72 09:49:00* Test Item Value Reference Range Interpretation Comments Urine Urobilinogen (test code = 05676-4) 0.2 0.2-1 [facility] Wwnpofhxu5237-30-78 09:49:00* Test Item Value Reference Range Interpretation Comments Urine Bilirubin (test code = 1977-8) NEGATIVE NEGATIVE [facility] Ejjsh7109-15-22 09:49:00* Test Item Value Reference Range Interpretation Comments Urine Blood (test code = 70921-1) NEGATIVE NEGATIVE [facility] Yrnta7164-65-15 09:49:00* Test Item Value Reference Range Interpretation Comments Urine Color (test code = 5778-6) ORANGE YELLOW H [facility] Hbwqnbc2641-33-71 09:49:00* Test Item Value Reference Range Interpretation Comments Urine Clarity (test code = 63466-9) SL CLOUDY CLEAR H [facility] Specific Mmpgnvq1093-96-52 09:49:00 * Test Item Value Reference Range Interpretation Comments Urine Specific [place] (test code = 5811-5) >=1.030 1.010-1.02 5 [facility] bW4786-65-09 09:49:00* Test Item Value Reference Range Interpretation Comments Urine pH (test code = 49817-0) 6 5-7 [facility] Leukocyte Lplrdxig9211-31-16 09:49:00* Test Item Value Reference Range Interpretation Comments Urine Leukocyte Esterase (test code = 31562-3) NEGATIVE NEGATIV E [facility] Enshsuz2943-09-26 09:49:00* Test Item Value Reference Range Interpretation Comments Urine Nitrite (test code = 04665-4) NEGATIVE NEGATIVE [facility] Lexyhon2719-36-36 09:49:00* Test Item Value Reference Range Interpretation Comments Urine Protein (test code = 91764-1) 1+ NEGATIVE H [facility] Glucose (UA)2018-12-19 09:49:00* Test Item Value Reference Range Interpretation Comments Urine Glucose (UA) (test code = 37036-1) NEGATIVE NEGATIVE [facility] Vuptrve9548-15-51 09:49:00* Test Item Value Reference Range Interpretation Comments Urine Ketones (test code = 83472-8) 1+ NEGATIVE H [facility] Nlapxkvaakik8178-96-31 09:49:00* Test Item Value Reference Range Interpretation Comments Urine Urobilinogen (test code = 61512-4) 0.2 0.2-1 [facility] Xepmmjxbs0008-40-67 09:49:00* Test Item Value Reference Range Interpretation Comments Urine Bilirubin (test code = 1977-8) NEGATIVE NEGATIVE [facility] Cscxv2156-97-43 09:49:00* Test Item Value Reference Range Interpretation Comments Urine Blood (test code = 73621-5) NEGATIVE NEGATIVE [facility] Kzfve2833-91-81 09:49:00* Test Item Value Reference Range Interpretation Comments Urine Color (test code = 5778-6) ORANGE YELLOW H [facility] Junpkyy2503-01-75 09:49:00* Test Item Value Reference Range Interpretation Comments Urine Clarity (test code = 55494-8) SL CLOUDY CLEAR H [facility] Specific Gvnlysk5054-50-59 09:49:00 * Test Item Value Reference Range Interpretation Comments Urine Specific [place] (test code = 5811-5) >=1.030 1.010-1.02 5 [facility] mA5264-73-11 09:49:00* Test Item Value Reference Range Interpretation Comments Urine pH (test code = 00828-5) 6 5-7 [facility] Leukocyte Phavrbbu3880-73-53 09:49:00* Test Item Value Reference Range Interpretation Comments Urine Leukocyte Esterase (test code = 75169-1) NEGATIVE NEGATIV E [facility] Cwsopzc3563-42-31 09:49:00* Test Item Value Reference Range Interpretation Comments Urine Nitrite (test code = 30408-8) NEGATIVE NEGATIVE [facility] Zqyqqqp0067-22-79 09:49:00* Test Item Value Reference Range Interpretation Comments Urine Protein (test code = 59732-6) 1+ NEGATIVE H [facility] Glucose (UA)2018-12-19 09:49:00* Test Item Value Reference Range Interpretation Comments Urine Glucose (UA) (test code = 37982-8) NEGATIVE NEGATIVE [facility] Doixdzr8458-00-40 09:49:00* Test Item Value Reference Range Interpretation Comments Urine Ketones (test code = 03888-9) 1+ NEGATIVE H [facility] Abogzwhfdyfu1931-65-48 09:49:00* Test Item Value Reference Range Interpretation Comments Urine Urobilinogen (test code = 33173-5) 0.2 0.2-1 [facility] Umgtuurio8747-56-02 09:49:00* Test Item Value Reference Range Interpretation Comments Urine Bilirubin (test code = 1977-8) NEGATIVE NEGATIVE [facility] Ifyza5752-33-71 09:49:00* Test Item Value Reference Range Interpretation Comments Urine Blood (test code = 55446-1) NEGATIVE NEGATIVE [facility] Aewfq1740-81-77 09:49:00* Test Item Value Reference Range Interpretation Comments Urine Color (test code = 5778-6) ORANGE YELLOW H [facility] Muatehv0013-64-44 09:49:00* Test Item Value Reference Range Interpretation Comments Urine Clarity (test code = 80048-7) SL CLOUDY CLEAR H [facility] Specific Qcktufe3726-12-49 09:49:00 * Test Item Value Reference Range Interpretation Comments Urine Specific [place] (test code = 5811-5) >=1.030 1.010-1.02 5 [facility] mE6774-76-22 09:49:00* Test Item Value Reference Range Interpretation Comments Urine pH (test code = 03476-9) 6 5-7 [facility] Leukocyte Tgmfmmyk1570-45-09 09:49:00* Test Item Value Reference Range Interpretation Comments Urine Leukocyte Esterase (test code = 89852-1) NEGATIVE NEGATIV E [facility] Ctibzgp2733-92-79 09:49:00* Test Item Value Reference Range Interpretation Comments Urine Nitrite (test code = 33964-4) NEGATIVE NEGATIVE [facility] Pvgdtja3889-32-48 09:49:00* Test Item Value Reference Range Interpretation Comments Urine Protein (test code = 44067-3) 1+ NEGATIVE H [facility] Glucose (UA)2018-12-19 09:49:00* Test Item Value Reference Range Interpretation Comments Urine Glucose (UA) (test code = 91157-8) NEGATIVE NEGATIVE [facility] Ibsbfwe4251-05-99 09:49:00* Test Item Value Reference Range Interpretation Comments Urine Ketones (test code = 71439-1) 1+ NEGATIVE H [facility] Wuzecsthiley1569-34-71 09:49:00* Test Item Value Reference Range Interpretation Comments Urine Urobilinogen (test code = 01312-9) 0.2 0.2-1 [facility] Cauposibz3770-17-67 09:49:00* Test Item Value Reference Range Interpretation Comments Urine Bilirubin (test code = 1977-8) NEGATIVE NEGATIVE [facility] Zumtq5003-43-07 09:49:00* Test Item Value Reference Range Interpretation Comments Urine Blood (test code = 14804-1) NEGATIVE NEGATIVE [facility] Lxekb6893-45-15 09:49:00* Test Item Value Reference Range Interpretation Comments Urine Color (test code = 5778-6) ORANGE YELLOW H [facility] Wqkdaph8842-52-29 09:49:00* Test Item Value Reference Range Interpretation Comments Urine Clarity (test code = 85893-7) SL CLOUDY CLEAR H [facility] Specific Zzmpdjw8731-05-03 09:49:00 * Test Item Value Reference Range Interpretation Comments Urine Specific [place] (test code = 5811-5) >=1.030 1.010-1.02 5 [facility] gO2532-70-26 09:49:00* Test Item Value Reference Range Interpretation Comments Urine pH (test code = 70693-9) 6 5-7 [facility] Leukocyte Iktifwiw1290-45-10 09:49:00* Test Item Value Reference Range Interpretation Comments Urine Leukocyte Esterase (test code = 77037-4) NEGATIVE NEGATIV E [facility] Mlelexo6928-17-41 09:49:00* Test Item Value Reference Range Interpretation Comments Urine Nitrite (test code = 67452-2) NEGATIVE NEGATIVE [facility] Acxfjuh2510-13-14 09:49:00* Test Item Value Reference Range Interpretation Comments Urine Protein (test code = 65799-9) 1+ NEGATIVE H [facility] Glucose (UA)2018-12-19 09:49:00* Test Item Value Reference Range Interpretation Comments Urine Glucose (UA) (test code = 97506-5) NEGATIVE NEGATIVE [facility] Rfjwahx9413-95-76 09:49:00* Test Item Value Reference Range Interpretation Comments Urine Ketones (test code = 21954-3) 1+ NEGATIVE H [facility] Hlwaslpyfaun0234-44-44 09:49:00* Test Item Value Reference Range Interpretation Comments Urine Urobilinogen (test code = 02038-4) 0.2 0.2-1 [facility] Bjgbduxtc8559-22-82 09:49:00* Test Item Value Reference Range Interpretation Comments Urine Bilirubin (test code = 1977-8) NEGATIVE NEGATIVE [facility] Zyzfy6455-03-59 09:49:00* Test Item Value Reference Range Interpretation Comments Urine Blood (test code = 97745-4) NEGATIVE NEGATIVE [facility] Xqkly8161-48-18 09:49:00* Test Item Value Reference Range Interpretation Comments Urine Color (test code = 5778-6) ORANGE YELLOW H [facility] Iedyqum2157-26-24 09:49:00* Test Item Value Reference Range Interpretation Comments Urine Clarity (test code = 74594-3) SL CLOUDY CLEAR H [facility] Specific Gxllgmd5458-32-84 09:49:00 * Test Item Value Reference Range Interpretation Comments Urine Specific [place] (test code = 5811-5) >=1.030 1.010-1.02 5 [facility] aU3479-17-75 09:49:00* Test Item Value Reference Range Interpretation Comments Urine pH (test code = 29925-6) 6 5-7 [facility] Leukocyte Dwbsqxao1585-66-61 09:49:00* Test Item Value Reference Range Interpretation Comments Urine Leukocyte Esterase (test code = 69470-6) NEGATIVE NEGATIV E [facility] Dyffskh1826-95-63 09:49:00* Test Item Value Reference Range Interpretation Comments Urine Nitrite (test code = 54261-3) NEGATIVE NEGATIVE [facility] Gsuehal5283-85-94 09:49:00* Test Item Value Reference Range Interpretation Comments Urine Protein (test code = 52804-1) 1+ NEGATIVE H [facility] Glucose (UA)2018-12-19 09:49:00* Test Item Value Reference Range Interpretation Comments Urine Glucose (UA) (test code = 85288-0) NEGATIVE NEGATIVE [facility] Wtqhkcu6665-84-27 09:49:00* Test Item Value Reference Range Interpretation Comments Urine Ketones (test code = 06488-9) 1+ NEGATIVE H [facility] Cklzqffupzpk2057-17-52 09:49:00* Test Item Value Reference Range Interpretation Comments Urine Urobilinogen (test code = 87436-5) 0.2 0.2-1 [facility] Xbnrroiae5845-08-01 09:49:00* Test Item Value Reference Range Interpretation Comments Urine Bilirubin (test code = 1977-8) NEGATIVE NEGATIVE [facility] Cwvea3661-96-66 09:49:00* Test Item Value Reference Range Interpretation Comments Urine Blood (test code = 77389-7) [facility]GATIVE [facility]GAT[facility] 09:47:00* Test Item Value Reference Range Interpretation Comments Ammonia (test code = 13399-9) 112 -123 [facility]2019-09-04 09:47:00* Test Item Value Reference Range Interpretation Comments Ammonia (test code = 16317-2) 112 -123 [facility]2019-09-04 09:47:00* Test Item Value Reference Range Interpretation Comments Ammonia (test code = 46250-0) 112 123 [facility]2019-09-04 09:47:00* Test Item Value Reference Range Interpretation Comments Ammonia (test code = 49606-0) 112 123 [facility]2019-09-04 09:47:00* Test Item Value Reference Range Interpretation Comments Ammonia (test code = 87480-5) 112 123 [facility]2018-12-19 09:09:00 [facility] [address] [place] [address] Patient Name: CARLITO ROCK MR #: [id number] : 1940 Age/Sex: 78/M Req #: [id number] Adm Physician: Ordered by: THAI BOWSER, SALLIE BOWSER Report #: [id number] Location: ER Room/Bed: Procedure: 4 DX/CHEST SINGLE [...] MD 9 COPY TO: SALLIE ANDRE Prothrombin Oitf1100-24-21 09:08:00* Test Item Value Reference Range Interpretation Comments Prothrombin Time (test code = 5902-2) 15.0 11.9-14.5 H [facility]Prothromb Time International Ratio 2018-12-19 09:08:00* Test Item Value Reference Range Interpretation Comments Prothromb Time International Ratio (test code = 6301-6) 1.13 Oral Anticoagulant Therapy INR Values:1. Low Intensity Therapy 1.5 - 2.02 . Moderate Intensity Therapy 2.0 - 3.03. High Intensity Therapy(1) 2.5 - 3. 54. High Intensity Therapy(2) 3.0 - 4.05. Panic Value INR > 5.0 [facility] Partial Thromboplast Time 2018-12-19 09:08:00* Test Item Value Reference Range Interpretation Comments Activated Partial Thromboplast Time (test code = 41583-2) 37.2 23.8-35.5 H [facility]roeProthrombin Ivje7021-83-24 09:08:00* Test Item Value Reference Range Interpretation Comments Prothrombin Time (test code = 5902-2) 15.0 11.9-14.5 H [facility]roeProthromb Time International Ratio 2018-12-19 09:08:00* Test Item Value Reference Range Interpretation Comments Prothromb Time International Ratio (test code = 6301-6) 1.13 Oral Anticoagulant Therapy INR Values:1. Low Intensity Therapy 1.5 - 2.02 . Moderate Intensity Therapy 2.0 - 3.03. High Intensity Therapy(1) 2.5 - 3. 54. High Intensity Therapy(2) 3.0 - 4.05. Panic Value INR > 5.0 [facility] Partial Thromboplast Time 2018-12-19 09:08:00* Test Item Value Reference Range Interpretation Comments Activated Partial Thromboplast Time (test code = 55323-6) 37.2 23.8-35.5 H [facility]roeBedside Ovecvxl4980-44-27 08:14:00* Test Item Value Reference Range Interpretation Comments Bedside Glucose (test code = 86628-5) 136 70-120 H Meter ID: [id number] [facility] NorthwestDifferential Total Cells Xlvlpvr7542-33-11 07:52:00* Test Item Value Reference Range Interpretation Comments Differential Total Cells Counted (test code = Differbipin tial Total Cells Counted) 100 [facility]roeNeutrophils % (Manual)2018-12-08 07:52:00 * Test Item Value Reference Range Interpretation Comments Neutrophils % (Manual) (test code = 42487-1) 46 40-74 [facility]roeLymphocytes % (Manual)2018-12-08 07:52:00 * Test Item Value Reference Range Interpretation Comments Lymphocytes % (Manual) (test code = 737-7) 34 19-48 [facility]roe[facility]ocytes % (Manual)2018-12-08 07:52:00* Test Item Value Reference Range Interpretation Comments Monocytes % (Manual) (test code = 744-3) 10 3.4-9.0 H [facility]roeEosinophils % (Manual)2018-12-08 07:52:00 * Test Item Value Reference Range Interpretation Comments Eosinophils % (Manual) (test code = 714-6) 10 0-7 H [facility] ConroePlatelet Mkrtszxo1443-22-83 07:52:00* Test Item Value Reference Range Interpretation Comments Platelet Estimate (test code = 11647-8) ADEQUATE [facility] ConroePlatelet Morphology Enggdrx8632-04-21 07:52:00* Test Item Value Reference Range Interpretation Comments Platelet Morphology Comment (test code = 12045-9) NORMAL [facility]roeAnisocytosis2019-08-24 07:52:00* Test Item Value Reference Range Interpretation Comments Anisocytosis (test code = 702-1) SLIGHT [facility]roeMicrocytosis2019-08-24 07:52:00* Test Item Value Reference Range Interpretation Comments Microcytosis (test code = 741-9) SLIGHT [facility]roeMacrocytosis2019-08-24 07:52:00* Test Item Value Reference Range Interpretation Comments Macrocytosis (test code = 738-5) SLIGHT [facility]roeRed Cell Morphology Zljqqnc8274-26-46 07:52:00* Test Item Value Reference Range Interpretation Comments Red Cell Morphology Comment (test code = 6742-1) NORMAL [facility]roeMicrocytosis2019-08-24 07:52:00* Test Item Value Reference Range Interpretation Comments Microcytosis (test code = 741-9) SLIGHT [facility]roeMacrocytosis2019-08-24 07:52:00* Test Item Value Reference Range Interpretation Comments Macrocytosis (test code = 738-5) SLIGHT [facility]roeMicrocytosis2019-08-24 07:52:00* Test Item Value Reference Range Interpretation Comments Microcytosis (test code = 741-9) SLIGHT [facility]roeMacrocytosis2019-08-24 07:52:00* Test Item Value Reference Range Interpretation Comments Macrocytosis (test code = 738-5) SLIGHT [facility]Microcytosis2019-08-24 07:52:00* Test Item Value Reference Range Interpretation Comments Microcytosis (test code = 741-9) SLIGHT [facility]roeMacrocytosis2019-08-24 07:52:00* Test Item Value Reference Range Interpretation Comments Macrocytosis (test code = 738-5) SLIGHT [facility]roeMicrocytosis2019-08-24 07:52:00* Test Item Value Reference Range Interpretation Comments Microcytosis (test code = 741-9) [facility] 07:52[facility]* Test Item Value Reference Range Interpretation Comments Macrocytosis (test code = 738-5) SLIGHT [facility]2019-08-24 07:52:00* Test Item Value Reference Range Interpretation Comments Microcytosis (test code = 741-9) SLIGHT [facility]2019-08-24 07:52:00* Test Item Value Reference Range Interpretation Comments Macrocytosis (test code = 738-5) SLIGHT [facility]2019-08-24 07:52:00* Test Item Value Reference Range Interpretation Comments Microcytosis (test code = 741-9) [facility]* Test Item Value Reference Range Interpretation Comments Macrocytosis (test code = 738-5) [facility] Test Item Value Reference Range Interpretation Comments Microcytosis (test code = 741-9) SLIGHT [facility]2019-08-24 07:52:00* Test Item Value Reference Range Interpretation Comments Macrocytosis (test code = 738-5) [facility]IGHT [facility] 05:42:00* Test Item Value Reference Range Interpretation Comments Ammonia (test code = 09590-9) 106 31-123 [facility] Blood Lfyec3547-54-03 05:37:00* Test Item Value Reference Range Interpretation Comments White Blood Count (test code = 6690-2) 11.02 4.8-10.8 H [facility]Red Blood Zltie5844-77-78 05:37:00* Test Item Value Reference Range Interpretation Comments Red Blood Count (test code = 789-8) 3.59 4.3-5.7 L [facility]2019-08-24 05:37:00* Test Item Value Reference Range Interpretation Comments Hemoglobin (test code = 12097-9) 7.8 14.0-18.0 L [facility]Hematocrit2019-08-24 05:37:00* Test Item Value Reference Range Interpretation Comments Hematocrit (test code = 4544-3) 27.0 38.2-49.6 L [facility]roeMean Corpuscular Ccxseu4993-40-55 05:37:00* Test Item Value Reference Range Interpretation Comments Mean Corpuscular Volume (test code = 787-2) 75.2 81-99 L [facility]Mean Corpuscular Vjqmpicvbn4800-36-07 05:37:00* Test Item Value Reference Range Interpretation Comments Mean Corpuscular Hemoglobin (test code = 785-6) 21.7 28-32 L [facility]Mean Corpuscular Hemoglobin Concent 2018-12-08 05:37:00* Test Item Value Reference Range Interpretation Comments Mean Corpuscular Hemoglobin Concent (test code = 786-4) 28.9 31-35 L [facility]roeRed Cell Distribution Euypm1372-52-16 05:37:00* Test Item Value Reference Range Interpretation Comments Red Cell Distribution Width (test code = 39682-1) 19.3 11.7 -14.4 H [facility]roePlatelet Xveea9705-44-47 05:37:00* Test Item Value Reference Range Interpretation Comments Platelet Count (test code = 777-3) 183 140-360 [facility]roeNeutrophils (%) (Auto)2018-12-08 05:37:00 * Test Item Value Reference Range Interpretation Comments Neutrophils (%) (Auto) (test code = 21821-1) 34.0 38.7-80.0 L [facility]roeLymphocytes (%) (Auto)2018-12-08 05:37:00 * Test Item Value Reference Range Interpretation Comments Lymphocytes (%) (Auto) (test code = 736-9) 44.9 18.0-39.1 H [facility]roeMonocytes (%) (Auto)2018-12-08 05:37:00* Test Item Value Reference Range Interpretation Comments Monocytes (%) (Auto) (test code = 5905-5) 5.8 4.4-11.3 [facility]osinophils (%) (Auto)2018-12-08 05:37:00 * Test Item Value Reference Range Interpretation Comments Eosinophils (%) (Auto) (test code = 713-8) 14.2 0.0-6.0 H [facility]roeBasophils (%) (Auto)2018-12-08 05:37:00* Test Item Value Reference Range Interpretation Comments Basophils (%) (Auto) (test code = 706-2) 0.3 0.0-1.0 [facility]roeIM GRANULOCYTES %2018-12-08 05:37:00* Test Item Value Reference Range Interpretation Comments IM GRANULOCYTES % (test code = IM GRANULOCYTES %) 0.8 0.0- 1.0 [facility]roeNeutrophils # (Auto)2018-12-08 05:37:00* Test Item Value Reference Range Interpretation Comments Neutrophils # (Auto) (test code = 751-8) 3.8 2.1-6.9 [facility]roeLymphocytes # (Auto)2018-12-08 05:37:00* Test Item Value Reference Range Interpretation Comments Lymphocytes # (Auto) (test code = 56553-3) 5.0 1.0-3.2 H [facility]roeMonocytes # (Auto)2018-12-08 05:37:00* Test Item Value Reference Range Interpretation Comments Monocytes # (Auto) (test code = 742-7) 0.6 0.2-0.8 [facility]Eosinophils # (Auto)2018-12-08 05:37:00* Test Item Value Reference Range Interpretation Comments Eosinophils # (Auto) (test code = 711-2) 1.6 0.0-0.4 H [facility]roeBasophils # (Auto)2018-12-08 05:37:00* Test Item Value Reference Range Interpretation Comments Basophils # (Auto) (test code = 704-7) 0.0 0.0-0.1 [facility]roeAbsolute Immature Granulocyte (auto 2018-12-08 05:37:00* Test Item Value Reference Range Interpretation Comments Absolute Immature Granulocyte (auto (anurag t code = Absolute Immature Granulocyte (auto) 0.09 0-0.[address] [facility] Sksbq6763-17-04 08:13:00* Test Item Value Reference Range Interpretation Comments Sodium Level (test code = 2951-2) 141 136-145 [facility]roePotassium Mqmku7532-70-18 08:13:00* Test Item Value Reference Range Interpretation Comments Potassium Level (test code = 2823-3) 3.6 3.5-5.1 [facility]roeChloride Cxfud6749-73-00 08:13:00* Test Item Value Reference Range Interpretation Comments Chloride Level (test code = 2075-0) 108 98-107 H [facility] ConroeCarbon Dioxide Klabv3057-68-90 08:13:00* Test Item Value Reference Range Interpretation Comments Carbon Dioxide Level (test code = 2028-9) 25 22-29 [facility] ConroeAnion Vuc3773-22-07 08:13:00* Test Item Value Reference Range Interpretation Comments Anion Gap (test code = 25098-7) 11.6 8-16 [facility]roeBlood Urea Jrvwbffi3826-02-99 08:13:00* Test Item Value Reference Range Interpretation Comments Blood Urea Nitrogen (test code = 3094-0) 5 7-26 L [facility]roeCreatinine2019-08-23 08:13:00* Test Item Value Reference Range Interpretation Comments Creatinine (test code = 2160-0) 0.78 0.72-1.25 [facility]roeBUN/Creatinine Bghrl7405-76-21 08:13:00* Test Item Value Reference Range Interpretation Comments BUN/Creatinine Ratio (test code = 3097-3) 6 6-25 [facility] ConroeEstimat Glomerular Filtration Rate 2018-12-07 08:13:00* Test Item Value Reference Range Interpretation Comments Estimat Glomerular Filtration Rate (test code = 664841863) > 60 >60 Ranges were taken from the National Kidney Disease Education Program and the [facility] Foundation literature.Reference ranges:60 or greater: Hisxek05-46 ( for 3 consecutive months): Chronic kidney disease 15 or less: Kidney failureHCA [facility] Healthcare ConroeGlucose Cybmh4221-91-58 08:13:00* Test Item Value Reference Range Interpretation Comments Glucose Level (test code = GVZ0532) 100 74-118 [facility]roeCalcium Uruuh5361-35-13 08:13:00* Test Item Value Reference Range Interpretation Comments Calcium Level (test code = 15888-2) 8.5 8.4-10.2 [facility] ConroeTotal Toltmbpsz3586-38-15 08:13:00* Test Item Value Reference Range Interpretation Comments Total Bilirubin (test code = 1975-2) 0.6 0.2-1.2 [facility] ConroeAspartate Amino Transf (AST/SGOT) 2018-12-07 08:13:00* Test Item Value Reference Range Interpretation Comments Aspartate Amino Transf (AST/SGOT) (test code = Aspartate Amino Transf (AST/SGOT)) 27 5-34 [facility] ConroeAlanine Aminotransferase (ALT/SGPT) 2018-12-07 08:13:00* Test Item Value Reference Range Interpretation Comments Alanine Aminotransferase (ALT/SGPT) (test code = 1742-6) 17 0-55 [facility] ConroeTotal Xjigojg6711-69-01 08:13:00* Test Item Value Reference Range Interpretation Comments Total Protein (test code = 2885-2) 5.3 6.5-8.1 L [facility] ConroeAlbumin2019-08-23 08:13:00* Test Item Value Reference Range Interpretation Comments Albumin (test code = 1751-7) 2.9 3.5-5.0 L [facility] ConroeGlobulin2019-08-23 08:13:00* Test Item Value Reference Range Interpretation Comments Globulin (test code = 37935-5) 2.4 2.3-3.5 [facility]roeAlbumin/Globulin Qtcue6816-11-49 08:13:00 * Test Item Value Reference Range Interpretation Comments Albumin/Globulin Ratio (test code = 1759-0) 1.2 0.8-2.0 [facility] ConroeAlkaline Rvdhessnznc1053-04-66 08:13:00* Test Item Value Reference Range Interpretation Comments Alkaline Phosphatase (test code = 6768-6) 80 40-150 [facility] ConroeUrine BNQ0555-17-82 14:36:00* Test Item Value Reference Range Interpretation Comments Urine WBC (test code = 5821-4) NONE 0-5 [facility] ConroeUrine VYK4251-82-13 14:36:00* Test Item Value Reference Range Interpretation Comments Urine RBC (test code = 36603-9) NONE 0-5 [facility]roeUrine Jzfxlyzb3824-54-46 14:36:00* Test Item Value Reference Range Interpretation Comments Urine Bacteria (test code = 56769-8) MODERATE NONE H [facility] ConroeUrine Epithelial Agrml2963-98-82 14:36:00 * Test Item Value Reference Range Interpretation Comments Urine Epithelial Cells (test code = 28313-3) FEW NONE [facility] ConroeUrine Tuvmw6104-83-96 14:36:00* Test Item Value Reference Range Interpretation Comments Urine Mucus (test code = 8247-9) MODERATE RARE H [facility] ConroeUrine Wbywh8210-50-18 14:25:00* Test Item Value Reference Range Interpretation Comments Urine Color (test code = 5778-6) YELLOW YELLOW [facility] ConroeUrine Xgjqvmq1098-41-56 14:25:00* Test Item Value Reference Range Interpretation Comments Urine Clarity (test code = 41232-0) SL CLOUDY CLEAR H [facility] ConroeUrine Specific Qpojsoc7942-96-81 14:25:00 * Test Item Value Reference Range Interpretation Comments Urine Specific [place] (test code = 5811-5) 1.025 1.010-1.02 5 [facility] ConroeUrine nC3923-31-49 14:25:00* Test Item Value Reference Range Interpretation Comments Urine pH (test code = 65812-6) 6 5-7 [facility]roeUrine Leukocyte Evybxyxy2101-91-94 14:25:00* Test Item Value Reference Range Interpretation Comments Urine Leukocyte Esterase (test code = 10888-2) NEGATIVE NEGATIV E [facility] ConroeUrine Etdevri8888-66-39 14:25:00* Test Item Value Reference Range Interpretation Comments Urine Nitrite (test code = 97323-7) NEGATIVE NEGATIVE [facility]roeUrine Avbaxxc3638-98-45 14:25:00* Test Item Value Reference Range Interpretation Comments Urine Protein (test code = 23759-0) NEGATIVE NEGATIVE [facility]roeUrine Glucose (UA)2018-12-06 14:25:00* Test Item Value Reference Range Interpretation Comments Urine Glucose (UA) (test code = 40819-6) 3+ NEGATIVE [facility]roeUrine Hrczgkd3033-43-96 14:25:00* Test Item Value Reference Range Interpretation Comments Urine Ketones (test code = 44553-3) NEGATIVE NEGATIVE [facility]roeUrine Urnurfknbgzr1539-85-90 14:25:00* Test Item Value Reference Range Interpretation Comments Urine Urobilinogen (test code = 56600-5) 0.2 0.2-1 [facility] ConroeUrine Irssqqdal1293-95-96 14:25:00* Test Item Value Reference Range Interpretation Comments Urine Bilirubin (test code = 1977-8) NEGATIVE NEGATIVE [facility] ConroeUrine Pwwmy2026-69-60 14:25:00* Test Item Value Reference Range Interpretation Comments Urine Blood (test code = 75353-7) NEGATIVE NEGATIVE [facility] Occult Xvcaw6311-68-03 10:48:00* Test Item Value Reference Range Interpretation Comments Stool Occult Blood (test code = 2335-8) NEGATIVE NEGATIVE [facility] Occult Rewnp4943-54-21 10:48:00* Test Item Value Reference Range Interpretation Comments Stool Occult Blood (test code = 2335-8) NEGATIVE NEGATIVE [facility] Occult Ubkvu7188-91-99 10:48:00* Test Item Value Reference Range Interpretation Comments Stool Occult Blood (test code = 2335-8) NEGATIVE NEGATIVE [facility] Occult Ogrlk0099-04-53 10:48:00* Test Item Value Reference Range Interpretation Comments Stool Occult Blood (test code = 2335-8) NEGATIVE NEGATIVE [facility] Occult Aonir0216-25-58 10:48:00* Test Item Value Reference Range Interpretation Comments Stool Occult Blood (test code = 2335-8) NEGATIVE NEGATIVE [facility] Occult Ygqye2849-79-29 10:48:00* Test Item Value Reference Range Interpretation Comments Stool Occult Blood (test code = 2335-8) NEGATIVE NEGATIVE [facility] Occult Hskvm5303-12-93 10:48:00* Test Item Value Reference Range Interpretation Comments Stool Occult Blood (test code = 2335-8) NEGATIVE NEGATIVE [facility] Occult Jpmud7338-74-38 10:48:00* Test Item Value Reference Range Interpretation Comments Stool Occult Blood (test code = 2335-8) NEGATIVE NEGATIVE [facility] ConroeCT ABDOMEN/PELVIS C2928-27-62 01:19:00 [facility] [address] [place] [address] Patient Name: CARLITO ROCK MR #: [id number] : 9[birth year] Age/Sex: 78/M Req #: [id number] [facility] Physician: LEOLA PONCE MD Ordered by: JUAN RUIZ MD Report #: [id number] Location: [facility] Room/Bed: [place] [address] Procedure: [id number] CT/ CT ABDOMEN/PELVIS W Exam Date: Exam [...] on 12/06/18128 COPY TO: JUAN RUIZ MD Nnobeodrohpjr9030-38-09 20:32:00* Test Item Value Reference Range Interpretation Comments Hypochromasia (test code = 728-6) MODERATE [facility]2019-08-21 20:32:00* Test Item Value Reference Range Interpretation Comments Dohle Bodies (test code = 7792-5) FEW [facility]2019-08-21 20:32:00* Test Item Value Reference Range Interpretation Comments Dohle Bodies (test code = 7792-5) FEW [facility]2019-08-21 20:32:00* Test Item Value Reference Range Interpretation Comments Dohle Bodies (test code = 7792-5) FEW [facility]2019-08-21 20:32:00* Test Item Value Reference Range Interpretation Comments Dohle Bodies (test code = 7792-5) FEW [facility]2019-08-21 20:32:00* Test Item Value Reference Range Interpretation Comments Dohle Bodies (test code = 7792-5) FEW [facility]2019-08-21 20:32:00* Test Item Value Reference Range Interpretation Comments Dohle Bodies (test code = 7792-5) FEW [facility]2019-08-21 20:32:00* Test Item Value Reference Range Interpretation Comments Dohle Bodies (test code = 7792-5) FEW [facility]2019-08-21 20:32:00* Test Item Value Reference Range Interpretation Comments Dohle Bodies (test code = 7792-5) FEW [facility]roeIron Madkp2551-30-89 18:07:00* Test Item Value Reference Range Interpretation Comments Iron Level (test code = 2498-4) 28 65-175 L [facility] Iron Binding Jeyzewix3331-72-85 18:07:00* Test Item Value Reference Range Interpretation Comments Total Iron Binding Capacity (test code = 2500-7) 587 261-4 78 H [facility] ConroePercent Iron Gvsfvkpkga3539-93-31 18:07:00* Test Item Value Reference Range Interpretation Comments Percent Iron Saturation (test code = 2502-3) 5 15-50 L [facility] ConroeTransferrin2019-08-21 18:07:00* Test Item Value Reference Range Interpretation Comments Transferrin (test code = 3034-6) 419 174-364 H [facility]2019-08-21 18:07:00* Test Item Value Reference Range Interpretation Comments Iron Level (test code = 2498-4) 28 65-175 L [facility] Iron Binding Tauctgkj5798-35-82 18:07:00* Test Item Value Reference Range Interpretation Comments Total Iron Binding Capacity (test code = 2500-7) 587 261-4 78 [facility] Iron Wuwjyhkoii6846-73-22 18:07:00* Test Item Value Reference Range Interpretation Comments Percent Iron Saturation (test code = 2502-3) 5 15-50 L [facility] ConroeTransferrin2019-08-21 18:07:00* Test Item Value Reference Range Interpretation Comments Transferrin (test code = 3034-6) 419 174-364 H [facility]2019-08-21 18:07:00* Test Item Value Reference Range Interpretation Comments Iron Level (test code = 2498-4) 28 65-175 L [facility] Iron Binding Uiqityre0759-08-06 18:07:00* Test Item Value Reference Range Interpretation Comments Total Iron Binding Capacity (test code = 2500-7) 587 261-4 78 H [facility]roePercent Iron Kshcptljmk6585-37-45 18:07:00* Test Item Value Reference Range Interpretation Comments Percent Iron Saturation (test code = 2502-3) 5 15-50 L [facility]2019-08-21 18:07:00* Test Item Value Reference Range Interpretation Comments Transferrin (test code = 3034-6) 419 174-364 H [facility]2019-08-21 18:07:00* Test Item Value Reference Range Interpretation Comments Iron Level (test code = 2498-4) 28 65-175 L [facility] Iron Binding Clxmnavp3897-10-05 18:07:00* Test Item Value Reference Range Interpretation Comments Total Iron Binding Capacity (test code = 2500-7) 587 261-4 78 H [facility] Iron Gwwshxpays1519-95-19 18:07:00* Test Item Value Reference Range Interpretation Comments Percent Iron Saturation (test code = 2502-3) 5 15-50 L [facility]2019-08-21 18:07:00* Test Item Value Reference Range Interpretation Comments Transferrin (test code = 3034-6) 419 174-364 H [facility]2019-08-21 18:07:00* Test Item Value Reference Range Interpretation Comments Iron Level (test code = 2498-4) 28 65-175 L [facility] Iron Binding Oxactolp1336-59-21 18:07:00* Test Item Value Reference Range Interpretation Comments Total Iron Binding Capacity (test code = 2500-7) 587 261-4 78 [facility] Iron Wtjafnrzut2140-81-62 18:07:00* Test Item Value Reference Range Interpretation Comments Percent Iron Saturation (test code = 2502-3) 5 15-50 L [facility]roeTransferrin2019-08-21 18:07:00* Test Item Value Reference Range Interpretation Comments Transferrin (test code = 3034-6) 419 174-364 H [facility]2019-08-21 18:07:00* Test Item Value Reference Range Interpretation Comments Iron Level (test code = 2498-4) 28 65-175 L [facility] Iron Binding Vecddqwk6829-25-50 18:07:00* Test Item Value Reference Range Interpretation Comments Total Iron Binding Capacity (test code = 2500-7) 587 261-4 78 H [facility]roePercent Iron Twonleezls5179-39-05 18:07:00* Test Item Value Reference Range Interpretation Comments Percent Iron Saturation (test code = 2502-3) 5 15-50 L [facility] ConroeTransferrin2019-08-21 18:07:00* Test Item Value Reference Range Interpretation Comments Transferrin (test code = 3034-6) 419 174-364 H [facility] ConroeBASIC METABOLIC ZKTOM7587-44-21 12:59:00 * Test Item Value Reference Range [...] CA) 8.8 mg/dL 8.5-10.1 N HEPATIC FUNCTION CFTKW0059-05-28 12:59:00* Test Item Value Reference Range Interpretation [...] reference range due to change in reagent. YTDQSEIY-B7960-11-20 12:59:00* Test Item Value Reference Range Interpretation Comments TROPONIN-I (test code = TROPI) <0.015 ng/mL 0-0.045 N ECUVECN7717-00-36 12:55:00* Test Item Value Reference Range Interpretation Comments AMMONIA (test code = AMM) 21 umol/L 11-32 N BASIC METABOLIC BXVVX2069-79-02 12:48:00* Test Item Value Reference Range Interpretation [...] code = CA) mg/dL 8.5-10.1 HEPATIC FUNCTION CCRQJ1544-02-18 12:48:00* Test Item Value Reference Range Interpretation [...] TOTAL (test code = ALKP) IUnit/L 45-117 NBPGDEGO-B1965-00-20 12:48:00* Test Item Value Reference Range Interpretation Comments TROPONIN-I (test code = TROPI) ng/mL 0-0.045 CBC W/O IDIQ4869-66-86 12:46:00* Test Item Value Reference Range Interpretation [...] fL 6.7-11.0 N - XR CHEST 1 A6117-21-26 11:02:00 FAX: Giuliana Ames [phone] [place]: B St: [facility] FAX: Mulugeta Hadley DO Name: CARLITO RCOK JR [facility] : 1940 Age/S: 78/M Marissa Carter [facility] Unit #: [id number] Loc: [place] [address] Phys: Mulugeta Hadley DO Acct: [id number] Dis Date: Status: REG ER PHONE #: [phone] Exam Date: 12/04/2018 1051 FAX #: [phone] Reason: Altered Mental Status EXAMS: CPT CODE: [id number] XR CHEST 1 V 67727 HISTORY: Confusion. COMPARISON: X-ray from March 15, 2005. No acute infiltrates, effusion or congestion is noted. Hyperinflation. The cardiac and mediastinal silhouette are within normal limits. IMPRESSION: No acute infiltrates, effusion or congestion. at 1102 Reported and signed by: Alphonso Gonzalez M.D. CC: Giuliana Miguel MD; Mulugeta Hadley DO Technologist: HENRY CASTILLO JR Trnscrd Date/Time/By: 12/04/2018 (2135) : By: [email or web address] Orig Print D/T: S: 12/04/2018 (4214) PAGE 1 Signed Report URINALYSIS TPTHIAHH3950-36-93 11:01:00* Test Item Value Reference Range Interpretation [...] #/LPF FEW Urine Source? Clean CatchCTA ABD/PEL/RUN LQZ5570-86-37 07:45:00 [place] [address] Patient Name: CARLITO ROCK MR #: [id number] : 1940 Age/Sex: 77/M Req #: [id number] Adm Physician: Ordered by: LEOLA PONCE MD Report #: [id number] Location: CT Room/Bed: Procedure: [id number] CT/CTA ABD/PEL/RUN OFF Exam Date: 10/30/17 Exam [...] celiac, S MA, and JASMIN. 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 Patent nevin [...] LEOLA PONCE MD MRI SHOULDER LEFT WO [place] [address] Patient Name: CARLITO ROCK MR #: [id number] : 1940 Age/Sex: 76/M Req #: [id number] Adm Physician : Ordered by: REDDY HERRERA MD Report #: [id number] Location: M [place] Room/Bed: Procedure: [id number] MRI/MRI SHOULDER L EFT WO Exam Date: [...] TO: REDDY HERRERA MD SHOULDER LEFT COMPLETE [place] [address] Patient Name: CARLITO ROCK MR #: [id number] : 1940 Age/Sex: 76/M Req #: [id number] Adm Physician: Ordered by: REDDY HERRERA MD Report #: [id number] Location: [facility] Room/Bed: Procedure: [id number] DX/SHOULDER LEFT C OMPLETE Exam Date: 01/20/17 Exam Time: 1210 RE PORT STATUS: Signed PROCEDURE: SHOULDER LEFT COMPLETE TECHNIQUE: 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
[2020-02-01] MEDS ORDERED: SODIUM CHLORIDE 0.9% 1000ML 1,000 ML ONE (14:08)
[2020-02-01] MEDS: SODIUM CHLORIDE 0.9% 1000ML 1,000 ML IV SCH ×2 (14:13→22:36)
[2020-02-01] MEDS ORDERED: SODIUM CHLORIDE 0.9% 250ML 250 ML ONE (15:40)
--- NOTE | 2020-02-01 19:33 | NUR ---
PATIENT RESTING IN BED, NO SIGNS OF DISTRESS NOTED. RECEIVING SECOND UNIT OF BLOOD, VITALS ARE STABLE, BED ALARM IS ON, CALL LIGHT IS WITHIN EASY REACH, WILL CONTINUE TO MONITOR.
[2020-02-01] MEDS ORDERED: ASPIRIN81 MG PO (20:14)
[2020-02-01] MEDS ORDERED: DEXTROSE 50% SYRINGE 50 ML IV PRN (22:00)
[2020-02-01] MEDS: INSULIN LISPRO 100 UNIT/1 ML 3ML VIAL SQ SCH (22:25)
--- NOTE | 2020-02-01 22:30 | NUR ---
PATIENT FINISHED WITH SECOND UNIT OF BLOOD. ALL VITALS ARE STABLE NO SIGNS OF DISTRESS, WILL CONTINUE TO MONITOR.
[2020-02-01] MEDS ORDERED: SIMVASTATIN40 MG PO (23:02)
[2020-02-02] VITALS (9 sets, daily range): BP systolic 122–170; BP diastolic 42–63
[2020-02-02 06:49] LABS: BASOPHILS # (AUTO) 0.1 (0.0-0.1); BASOPHILS % 0.9 % (0.0-1.0); EOSINOPHILS # (AUTO) 0.9 (0.0-0.4); EOSINOPHILS % 14.5 % (0.0-6.0); HEMATOCRIT 24.5 % (38.2-49.6); HEMOGLOBIN 7.6 g/dL (14.0-18.0); LYMPHOCYTES # (AUTO) 3.3 (1.0-3.2); LYMPHOCYTES % 52.4 % (18.0-39.1); MEAN CORPUSCULAR HEMOGLOBIN 25.9 pg (28-32); MEAN CORPUSCULAR VOLUME 83.6 fL (81-99); MONOCYTES # (AUTO) 0.4 (0.2-0.8); MONOCYTES % 6.6 % (4.4-11.3); NEUTROPHILS # (AUTO) 1.6 (2.1-6.9); NEUTROPHILS % 25.4 % (38.7-80.0); PLATELET COUNT 131 x10e3/uL (140-360); RED BLOOD COUNT 2.93 x10e6/uL (4.3-5.7)
[2020-02-02 07:02] LABS: ALANINE AMINOTRANSFERASE 28 IU/L (0-55); ALBUMIN 2.9 g/dL (3.5-5.0); ALBUMIN/GLOBULIN RATIO 1.3 (0.8-2.0); ALKALINE PHOSPHATASE 93 IU/L (40-150); ANION GAP 11.7 mmol/L (8-16); BLOOD UREA NITROGEN 9 mg/dL (7-26); BUN/CREATININE RATIO 11 (6-25); CALCIUM 7.9 mg/dL (8.4-10.2); CARBON DIOXIDE 24 mmol/L (22-29); CHLORIDE 109 mmol/L (98-107); CREATININE, SERUM 0.81 mg/dL (0.72-1.25); EST GLOMERULAR FILTRATION RATE > 60 ML/MIN (60-); GLUCOSE 103 mg/dL (74-118); POTASSIUM 3.7 mmol/L (3.5-5.1); SODIUM 141 mmol/L (136-145)
[2020-02-02] MEDS: INSULIN LISPRO 100 UNIT/1 ML 3ML VIAL SQ SCH ×4 (07:30→20:20)
[2020-02-02] MEDS: METFORMIN HCL 500 MG TAB PO SCH ×2 (08:00→17:02)
[2020-02-02 08:37] LABS: % IRON SATURATION 33 % (15-50); IRON 180 ug/dL (65-175); TOTAL IRON BINDING CAPACITY 540 ug/dL (261-478); TRANSFERRIN 386 mg/dL (174-364)
[2020-02-02] MEDS ORDERED: CLOPIDOGREL BISULFATE 75 MG TAB PO SCH (09:00)
[2020-02-02] MEDS ORDERED: SIMVASTATIN 40 MG TAB PO SCH (09:00)
[2020-02-02] MEDS ORDERED: ASPIRIN 81 MG CHEW TAB PO SCH (09:00)
[2020-02-02] MEDS ORDERED: IRON SUCROSE 100 MG in SODIUM CHLORIDE 0.9% 100 ML 100 ML IV SCH (10:00)
--- NOTE | 2020-02-02 10:11 | History and Physical ---
CHIEF COMPLAINT: The patient came in with symptomatic anemia. HISTORY OF PRESENT ILLNESS: This is . Harpreet Joseph, who came in and saw me on Monday, was extremely weak, and tired with a history of anemia. The patient's CBC was repeated. The patient's hemoglobin of 6.1 on arrival to the ER, which the patient was sent. His hemoglobin was 5.8. The patient was transfused 2 units of PRBCs yesterday and kept in the unit. The patient has a history of cirrhosis of the liver and also history of GI bleed in the past. Currently, the patient was symptomatic with extreme weakness and also difficulty in ambulation. The patient also had shortness of breath on exertion. PAST MEDICAL HISTORY: 1. History of CVA recently with left-sided hemiparesis. 2. History of uncontrolled diabetes mellitus. 3. History of hyperlipidemia. 4. History of depression. 5. History of cirrhosis of the liver. 6. History of hepatic encephalopathy. PAST SURGICAL HISTORY: History of cataract surgery and otherwise noncontributory. SOCIAL HISTORY: Positive for drinking, still drinks about 2-3 beers a day. No IV drug abuse. History of smoking in the past. Currently, nonsmoker. ALLERGIES: NO DRUG ALLERGIES. FAMILY HISTORY: 1. Positive for CAD, congestive heart failure and myocardial infarction, and Alzheimer's in both parents. 2. History of COPD with a brother. REVIEW OF SYSTEMS: Negative for chest pain. Positive for shortness of breath. Negative for nausea, vomiting, or diarrhea. No constipation. No rectal bleeding. No hematochezia. No hematemesis. Positive for extreme fatigue and tiredness and no rectal bleeding. No diplopia. No blurry vision. Positive for left-sided weakness, which is residual secondary to stroke. PHYSICAL EXAMINATION: VITAL SIGNS: Temperature 98.1 on arrival, pulse of 82, respirations of 18, blood pressure is 125/58 with a pulse oximetry of 98%. HEENT: Normocephalic and atraumatic. Pupils positive for pallor. CVS: S1 and S2 normal. Regular rate and rhythm. Ejection systolic murmur present. ABDOMEN: Soft, nontender, and nondistended. EXTREMITIES: No clubbing, no cyanosis. Positive for trace edema. LABORATORY VALUES: White count is 4.70 initially, hemoglobin 5.3 with hematocrit of 18.1, MCV 85, MCH 25, RDW is 14.8. Today's hemoglobin is 7.6 and hematocrit 24.6. Chemistry, shows sodium 141, potassium of 4.7, BUN of 12, creatinine 0.99, glucose 220. Troponin was 0.005. SEROLOGY: Coronavirus is pending. IMAGING STUDIES: None done. ASSESSMENT AND PLAN: 1. This is Mr. Harpreet Joseph with symptomatic anemia, possibly blood loss. Consult with Dr. Mccall will be done. Transfuse 2 units of PRBCs. The patient's hemoglobin is up to 7.5. We are going to check an iron level and transfuse IV Venofer if needed. 2. Cirrhosis of the liver, check ammonia levels. 3. History of diabetes mellitus, continue with current medication and also insulin sliding scale. 4. History of depression, we will continue Venlafaxine and will hold back on clopidogrel or Plavix secondary to GI loss. Further recommendation per clinical course. We will continue to monitor the patient. The patient also will be on pantoprazole. MD JC Hameed/MODL /[id number]
[2020-02-02] MEDS: VENLAFAXINE HCL 75 MG TAB PO SCH (11:32)
[2020-02-02] MEDS ORDERED: SODIUM CHLORIDE 0.9% 1000ML 1,000 ML ONE (14:06)
[2020-02-02] MEDS: SODIUM CHLORIDE 0.9% 1000ML 1,000 ML IV SCH (14:40)
[2020-02-02] MEDS: PANTOPRAZOLE SOD 40 MG TABEC PO SCH (17:02)
[2020-02-02] MEDS: SIMVASTATIN 40 MG TAB PO SCH (20:20)
[2020-02-03] VITALS (13 sets, daily range): BP systolic 129–156; BP diastolic 52–62
[2020-02-03] MEDS: SODIUM CHLORIDE 0.9% 1000ML 1,000 ML IV SCH ×2 (03:18→17:47)
[2020-02-03] MEDS ORDERED: SODIUM CHLORIDE 0.9% 1000ML 1,000 ML ONE (03:23)
--- NOTE | 2020-02-03 07:20 | Progress Note ---
DATE: SUBJECTIVE: This 79-year-old male who came in with acute blood loss anemia. The patient is currently sleeping. No overnight problems noted, but hemoglobin did go up to 7.8. No chest pain. No shortness of breath. OBJECTIVE: VITAL SIGNS: As per nursing, the patient's vital signs, temperature is 97.9, pulse of 82, respirations of 18, blood pressure is 129/53, pulse oximetry of 97%. HEENT: Normocephalic and atraumatic. Pupils are reactive. CVS: S1 and S2 normal. Regular rate and rhythm. ABDOMEN: Soft, nontender, nondistended. EXTREMITIES: No clubbing, no cyanosis, no edema. LABORATORY VALUES: Hemoglobin is 7.6 and hematocrit is 24.5. Chemistries yesterday, sodium 141, potassium 3.7, BUN of 9, creatinine 0.81. Iron was high, TIBC 540. Percentage saturation 33 and transferrin is 386 secondary to cirrhosis. Total bilirubin is 1.9. ASSESSMENT AND PLAN: 1. This is Mr. Harpreet Joseph 79-year-old male with blood loss anemia and iron deficiency. Continue with iron. 2. EGD scheduled for today, the patient is n.p.o. 3. History of diabetes mellitus, continue insulin and insulin sliding scale. 4. History of depression, continue with Venlafaxine. Clopidogrel and aspirin are on hold. We will continue to monitor the patient. Further recommendation per clinical course. MD JC Hameed/MODL /[id number]
[2020-02-03 07:22] LABS: HEMATOCRIT 25.1 % (38.2-49.6); HEMOGLOBIN 7.7 g/dL (14.0-18.0)
[2020-02-03] MEDS: INSULIN LISPRO 100 UNIT/1 ML 3ML VIAL SQ SCH ×4 (07:30→21:00)
[2020-02-03] MEDS: PANTOPRAZOLE SOD 40 MG TABEC PO SCH ×3 (07:30→17:36)
[2020-02-03] MEDS: METFORMIN HCL 500 MG TAB PO SCH ×2 (08:00→17:00)
[2020-02-03] MEDS: VENLAFAXINE HCL 75 MG TAB PO SCH (09:00)
--- NOTE | 2020-02-03 12:29 | NUR ---
Left unit for egd
[2020-02-03] MEDS ORDERED: FENTANYL CITRATE/PF 100MCG/2 ML INJ ONE (12:45)
[2020-02-03] MEDS ORDERED: LIDOCAINE HCL 2% LOCAL INJ 5 ML SDV VIAL INJ ONE (13:01)
[2020-02-03] MEDS ORDERED: PROPOFOL IV EMULSION 10 MG/ML 20 ML VIAL ONE (13:01)
[2020-02-03] MEDS ORDERED: BISACODYL 5 MG TAB EC PO ONE (13:55)
[2020-02-03] MEDS ORDERED: PEG (High)/E-LYTE SOLN 4,000 ML BTL PO ONE (13:55)
--- NOTE | 2020-02-03 17:06 | NUR ---
Nutrition Screen Note RD Recommendation for Physician: -Recommend advancing diet when medically appropriate Plan of Care: RD following, monitoring for tolerance and adequacy Nutrition reason for involvement: Nutrition Risk Trigger Primary Diagnose(s): anemia PMH: CVA recently with left-sided hemiparesis, uncontrolled diabetes mellitus, hyperlipidemia., depression, cirrhosis of the liver, hepatic encephalopathy. Ht: 70 in Wt:179 lb BMI: 25.7 kg/m2 IBW:[address] Assessment: (02/03/20) Chart reviewed. Labs and meds reviewed. Pt is a 79 year old male admitted with anemia. Pt had an EGD with biopsy today and is currently on a clear liquid diet. Pt reports he usually eats most of his meals. No weight loss reported and pt stated he usually weighs 180 lbs. No chewing/swallowing issues. Will continue to monitor. Current Diet: clear liquids Malnutrition Evaluation (02/03/20) The patient does not meet criteria for a specified degree of malnutrition at this time. Will re-evaluate at follow-up as appropriate. Diet Education Needs Assessment: Pt declined the need for diet education Nutrition Care Level: low Signed: Annie Yusuf, RD, LD
[2020-02-03] MEDS: SIMVASTATIN 40 MG TAB PO SCH (21:00)
[2020-02-04] VITALS: BP 160/57
[2020-02-04 04:00] VITALS: BP 128/41
[2020-02-04] MEDS: SODIUM CHLORIDE 0.9% 1000ML 1,000 ML IV SCH (05:29)
[2020-02-04 06:02] LABS: BASOPHILS # (AUTO) 0.1 (0.0-0.1); BASOPHILS % 1.1 % (0.0-1.0); EOSINOPHILS % 13.6 % (0.0-6.0); HEMATOCRIT 26.4 % (38.2-49.6); LYMPHOCYTES # (AUTO) 3.4 (1.0-3.2); LYMPHOCYTES % 46.8 % (18.0-39.1); MEAN CORPUSCULAR HEMOGLOBIN 26.4 pg (28-32); MEAN CORPUSCULAR HGB CONC 30.3 g/dL (31-35); MEAN CORPUSCULAR VOLUME 87.1 fL (81-99); MONOCYTES # (AUTO) 0.5 (0.2-0.8); NEUTROPHILS # (AUTO) 2.3 (2.1-6.9); NEUTROPHILS % 31.4 % (38.7-80.0); PLATELET COUNT 136 x10e3/uL (140-360); RED BLOOD COUNT 3.03 x10e6/uL (4.3-5.7); RED CELL DISTRIBUTION WIDTH 14.6 % (11.7-14.4)
[2020-02-04] MEDS ORDERED: SIMETHICONE 40 MG/0.6 ML BTL ONE (06:15)
[2020-02-04 06:36] LABS: ALANINE AMINOTRANSFERASE 30 IU/L (0-55); ALBUMIN/GLOBULIN RATIO 1.3 (0.8-2.0); ALKALINE PHOSPHATASE 91 IU/L (40-150); ANION GAP 12.6 mmol/L (8-16); BLOOD UREA NITROGEN 7 mg/dL (7-26); BUN/CREATININE RATIO 8 (6-25); CALCIUM 8.4 mg/dL (8.4-10.2); CARBON DIOXIDE 23 mmol/L (22-29); CHLORIDE 111 mmol/L (98-107); CREATININE, SERUM 0.87 mg/dL (0.72-1.25); EST GLOMERULAR FILTRATION RATE > 60 ML/MIN (60-); GLUCOSE 109 mg/dL (74-118); POTASSIUM 3.6 mmol/L (3.5-5.1); SODIUM 143 mmol/L (136-145)
[2020-02-04] MEDS: INSULIN LISPRO 100 UNIT/1 ML 3ML VIAL SQ SCH (07:30)
--- NOTE | 2020-02-04 07:36 | Progress Note ---
DATE: SUBJECTIVE: The patient is a 79-year-old male, who comes in with hypertension and also with blood loss anemia. The patient had EGD yesterday. No bleeding diathesis was found. The patient is scheduled for a colonoscopy today. Stable today. No complaints. Still weak, but better. OBJECTIVE: VITAL SIGNS: Temperature is 98.2, pulse of 80, respirations of 20, blood pressure is 128/41. HEENT: Normocephalic and atraumatic. Pupils are reactive. CVS: S1 and S2 are normal. Regular rate and rhythm. ABDOMEN: Soft, nontender. EXTREMITIES: No clubbing. No cyanosis. No edema. Baseline decrease in strength of the left lower extremities. LABORATORY VALUES: Hemoglobin is 8 and hematocrit 26.4, which is an uptake. Chemistries; sodium of 143, potassium 3.6, glucose has been running in the 130s to 190s. Albumin is low at 3.0. Serology; coronavirus is not detected. ASSESSMENT: Mr. Harpreet Joseph with: 1. Acute blood loss anemia. The patient's Plavix and aspirin has been on hold. 2. Hypertension. 3. History of cerebrovascular accident. 4. Hyperlipidemia. 5. Diabetes mellitus. PLAN: Continue to monitor the patient and after the colonoscopy, the patient can be discharged home. If there are findings, we will discuss it with the patient at that time. For further information on clinical course, we will continue to monitor the patient. We will talk to Dr. Mccall, who has done the colonoscopy prior to discharge and formulate the plan for this gentleman. MD DONTRELL HameedJ/MODL /[id number]
[2020-02-04 07:51] VITALS: BP 148/59
[2020-02-04 07:54] VITALS: BP 148/59
[2020-02-04] MEDS: METFORMIN HCL 500 MG TAB PO SCH (08:17)
[2020-02-04] MEDS: PANTOPRAZOLE SOD 40 MG TABEC PO SCH (08:17)
[2020-02-04] MEDS: VENLAFAXINE HCL 75 MG TAB PO SCH (08:17)
--- NOTE | 2020-02-04 10:33 | NUR ---
PATIENT ARRIVE BACK TO THE UNIT @0745 FROM THE OR VIA STRETCHER. VITAL SIGNS STABLE. PATIENT IN STABLE CONDITION, NO S/S OF DISTRESS NOTED. RESPIRATIONS EVEN AND NONLABORED. PATIENT ABLE TO VOICE NEEDS. TELEMETRY APPLIED. IV FLUID INFUSING, SITE ASYMPTOMATIC AND PATENT, TRANSPARENT DRESSING C/D/I. BED IN LOWEST POSITION AND LOCKED, SIDE RAILS X 2, NONSKID SOCKS APPLIED. CALL LIGHT WITHIN REACH.
--- NOTE | 2020-02-04 11:33 | NUR ---
PATIENT DISCHARGED HOME. PATIENT OFF THE UNIT @ 1055 VIA WHEELCHAIR ACCOMPANIED TO THE LOBBY BY PCT. PATIENT IN STABLE CONDITION, NO S/S OF DISTRESS NOTED. NO PAIN VOICED. IV ACCESS REMOVED WITH TIP INTACT. ALL PERSONAL ITEMS TAKEN WITH THE PATIENT. DISCHARGE TEACHING AND INSTRUCTION GIVEN TO THE PATIENT. PATIENT VERBALIZED UNDERSTANDING. DISCHARGE PAPERWORK GIVEN TO THE PATIENT.
[2020-02-04] MEDS ORDERED: PROPOFOL IV EMULSION 10 MG/ML 20 ML VIAL ONE (12:09)
[2020-02-04] MEDS ORDERED: FENTANYL CITRATE/PF 100MCG/2 ML INJ ONE (12:55)
== END 2020-02-04 10:55 | disposition home or self-care (01) ==
LOC: ER 12:00 → ERHOLD 12:04 → ER 12:53 → MED/SURG3 13:10
PROVIDERS: ADMIT Family Medicine; ATTEND Family Medicine
DX: K31.811 Angiodysplasia of stomach and duodenum with bleeding (principal); D62 Acute posthemorrhagic anemia; K29.70 Gastritis, unspecified, without bleeding; K44.9 Diaphragmatic hernia without obstruction or gangrene; I69.354 Hemiplegia and hemiparesis following cerebral infarction affecting left non-dominant side; I10 Essential (primary) hypertension; E11.9 Type 2 diabetes mellitus without complications; E78.5 Hyperlipidemia, unspecified; K74.60 Unspecified cirrhosis of liver; F32.9 Major depressive disorder, single episode, unspecified; Z87.891 Personal history of nicotine dependence; F10.10 Alcohol abuse, uncomplicated; Z82.49 Family history of ischemic heart disease and other diseases of the circulatory system; Z82.5 Family history of asthma and other chronic lower respiratory diseases; Z79.4 Long term (current) use of insulin; Z11.59 Encounter for screening for other viral diseases
CPT/HCPCS: 36415 ×4; 36430; 43239; 45378; 80053 ×3; 82550; 82553; 82948 ×4; 83540; 84466; 84484; 85014; 85018; 85025 ×3; 85610; 85730; 86850; 86900; 86920; 88305; 88312; 93005; 99284; C9113; G0378 ×4; J1756; J2001; J2704 ×2; J3010 ×2; J7030 ×3; J7050; P9016; S0164 ×3; U0002; J2405

== ENCOUNTER 2020-06-15 09:00 | Emergency (ER) | payer MEDICARE ==
[~2020-06-15] VITALS: Ht 330.2 cm; Wt 81.2 kg
[~2020-06-15 09:00] MED LIST changes: +ASPIRIN81 MG PO
[2020-06-15] MEDS ORDERED: SODIUM CHLORIDE 0.9% 500ML 500 ML IV ONE (09:45)
[2020-06-15 10:32] LABS: CLARITY,URINE CLOUDY (CLEAR); COLOR,URINE YELLOW (YELLOW)
[2020-06-15 10:33] LABS: KETONES,URINE 1+ (NEGATIVE); LEUKOCYTE ESTERASE ,URINE LARGE (NEGATIVE); NITRITE,URINE POSITIVE (NEGATIVE); PROTEIN,URINE DIPSTICK >=300 (NEGATIVE)
[2020-06-15 10:48] LABS: RBC,URINE >50 /HPF (0-5); WBC,URINE (MAN) 21-50 /HPF (0-5)
[2020-06-15 10:49] LABS: BACTERIA,URINE MODERATE /HPF
[2020-06-15 11:50] LABS: BASOPHILS # (AUTO) 0.1 (0.0-0.1); BASOPHILS % 0.6 % (0.0-1.0); EOSINOPHILS # (AUTO) 0.6 (0.0-0.4); EOSINOPHILS % 4.7 % (0.0-6.0); HEMATOCRIT 32.8 % (38.2-49.6); HEMOGLOBIN 10.4 g/dL (14.0-18.0); LYMPHOCYTES # (AUTO) 3.9 (1.0-3.2); LYMPHOCYTES % 31.4 % (18.0-39.1); MEAN CORPUSCULAR HEMOGLOBIN 28.3 pg (28-32); MEAN CORPUSCULAR HGB CONC 31.7 g/dL (31-35); MEAN CORPUSCULAR VOLUME 89.1 fL (81-99); MONOCYTES % 8.4 % (4.4-11.3); NEUTROPHILS # (AUTO) 6.7 (2.1-6.9); NEUTROPHILS % 54.4 % (38.7-80.0); PLATELET COUNT 132 x10e3/uL (140-360); RED BLOOD COUNT 3.68 x10e6/uL (4.3-5.7); RED CELL DISTRIBUTION WIDTH 22.8 % (11.7-14.4)
[2020-06-15] MEDS ORDERED: CEFTRIAXONE SOD 1 GM in SODIUM CHLORIDE 0.9% 50ML 50 ML IV ONE (12:30)
[2020-06-15 12:33] LABS: INR 0.99; PROTHROMBIN TIME 13.7 seconds (11.9-14.5)
[2020-06-15 12:41] LABS: ALANINE AMINOTRANSFERASE 56 IU/L (0-55); ALBUMIN 3.1 g/dL (3.5-5.0); ALBUMIN/GLOBULIN RATIO 1.3 (0.8-2.0); ALKALINE PHOSPHATASE 116 IU/L (40-150); ANION GAP 11.1 mmol/L (8-16); BLOOD UREA NITROGEN 11 mg/dL (7-26); BUN/CREATININE RATIO 12 (6-25); CALCIUM 8.5 mg/dL (8.4-10.2); CARBON DIOXIDE 25 mmol/L (22-29); CHLORIDE 104 mmol/L (98-107); CREATININE, SERUM 0.91 mg/dL (0.72-1.25); EST GLOMERULAR FILTRATION RATE > 60 ML/MIN (60-); GLUCOSE 284 mg/dL (74-118); POTASSIUM 4.1 mmol/L (3.5-5.1); SODIUM 136 mmol/L (136-145)
[2020-06-15] MEDS ORDERED: IOPAMIDOL 370 MG/ML 200 ML INFUS..BTL INJ ONE (12:53)
[2020-06-15] MEDS ORDERED: SODIUM CHLORIDE 0.9% 250ML 250 ML ONE (12:54)
== END 2020-06-15 15:50 | disposition home or self-care (01) ==
LOC: ER 09:10
DX: N39.0 Urinary tract infection, site not specified (principal); R31.9 Hematuria, unspecified; E11.65 Type 2 diabetes mellitus with hyperglycemia; I10 Essential (primary) hypertension; K76.9 Liver disease, unspecified
CPT/HCPCS: 36415; 74178; 80053; 81001; 85025; 85610; 85730; 87086; 87186; 99284; J0696; J7040; J7050; Q9967

== ENCOUNTER 2020-09-07 14:27 | Inpatient (IN) | payer MEDICARE ==
[~2020-09-07] VITALS: Ht 177.8 cm; Wt 81.2 kg
[2020-09-07] MEDS ORDERED: SODIUM CHLORIDE 0.9% 1000ML 1,000 ML IV STA (14:47)
[2020-09-07 15:01] LABS: BASOPHILS % 0.5 % (0.0-1.0); EOSINOPHILS # (AUTO) 0.3 (0.0-0.4); EOSINOPHILS % 4.3 % (0.0-6.0); HEMATOCRIT 36.4 % (38.2-49.6); HEMOGLOBIN 12.2 g/dL (14.0-18.0); LYMPHOCYTES # (AUTO) 2.3 (1.0-3.2); MEAN CORPUSCULAR HEMOGLOBIN 32.5 pg (28-32); MEAN CORPUSCULAR HGB CONC 33.5 g/dL (31-35); MEAN CORPUSCULAR VOLUME 97.1 fL (81-99); MONOCYTES # (AUTO) 0.7 (0.2-0.8); MONOCYTES % 11.2 % (4.4-11.3); NEUTROPHILS # (AUTO) 2.8 (2.1-6.9); NEUTROPHILS % 45.8 % (38.7-80.0); PLATELET COUNT 107 x10e3/uL (140-360); RED BLOOD COUNT 3.75 x10e6/uL (4.3-5.7); RED CELL DISTRIBUTION WIDTH 15.5 % (11.7-14.4)
[2020-09-07 15:04] LABS: INR 0.93; PROTHROMBIN TIME 13.1 seconds (11.9-14.5)
[2020-09-07 15:05] LABS: PARTIAL THROMBOPLASTIN TIME 30.6 seconds (23.8-35.5)
[2020-09-07 15:14] LABS: ALANINE AMINOTRANSFERASE 90 IU/L (0-55); ALBUMIN/GLOBULIN RATIO 1.1 (0.8-2.0); ALKALINE PHOSPHATASE 145 IU/L (40-150); ANION GAP 13.4 mmol/L (8-16); BLOOD UREA NITROGEN 17 mg/dL (7-26); BUN/CREATININE RATIO 19 (6-25); CALCIUM 9.4 mg/dL (8.4-10.2); CARBON DIOXIDE 25 mmol/L (22-29); CHLORIDE 103 mmol/L (98-107); CREATINE KINASE 48 IU/L (30-200); CREATININE, SERUM 0.89 mg/dL (0.72-1.25); EST GLOMERULAR FILTRATION RATE > 60 ML/MIN (60-); GLUCOSE 172 mg/dL (74-118); MAGNESIUM 1.7 MG/DL (1.3-2.1); POTASSIUM 4.4 mmol/L (3.5-5.1); SODIUM 137 mmol/L (136-145)
[2020-09-07] MEDS: PIPERACILLIN/TAZOBAC 3.375 GM in SODIUM CHLORIDE 0.9% 50ML 50 ML IV SCH ×2 (15:57→22:00)
[2020-09-07] MEDS ORDERED: MORPHINE SULFATE INJ 2 MG/ML SYR IV PRN (16:15)
[2020-09-07] MEDS ORDERED: ONDANSETRON HCL INJ 2MG/ML 2ML 2 MG/ML VIAL IV PRN (16:15)
[2020-09-07] MEDS: SODIUM CHLORIDE 0.9% 1000ML 1,000 ML IV SCH (16:27)
[2020-09-07] MEDS ORDERED: MORPHINE SULFATE INJ 4 MG/ML INJ 1ML IV PRN (16:30)
[2020-09-07] MEDS ORDERED: DEXTROSE 50% SYRINGE 50 ML IV PRN (16:30)
[2020-09-07] MEDS ORDERED: VANCOMYCIN 750MG/NS 150ML IVPB 150 ML IV SCH (17:00)
[2020-09-07] MEDS: INSULIN LISPRO 100 UNIT/1 ML 3ML VIAL SQ SCH ×2 (17:58→21:00)
[2020-09-07 20:15] VITALS: BP 190/88
[2020-09-07] MEDS: INSULIN GLARGINE 100 UNITS/ML VIAL SQ SCH (21:00)
[2020-09-07] MEDS: SIMVASTATIN 40 MG TAB PO SCH (21:00)
[2020-09-08] VITALS (9 sets, daily range): BP systolic 113–147; BP diastolic 45–66
[2020-09-08] MEDS: PIPERACILLIN/TAZOBAC 3.375 GM in SODIUM CHLORIDE 0.9% 50ML 50 ML IV SCH ×4 (04:01→21:02)
[2020-09-08 05:27] LABS: BASOPHILS % 0.5 % (0.0-1.0); EOSINOPHILS # (AUTO) 0.3 (0.0-0.4); EOSINOPHILS % 5.6 % (0.0-6.0); HEMATOCRIT 33.7 % (38.2-49.6); HEMOGLOBIN 11.5 g/dL (14.0-18.0); LYMPHOCYTES # (AUTO) 2.3 (1.0-3.2); LYMPHOCYTES % 40.8 % (18.0-39.1); MEAN CORPUSCULAR HEMOGLOBIN 32.6 pg (28-32); MEAN CORPUSCULAR HGB CONC 34.1 g/dL (31-35); MEAN CORPUSCULAR VOLUME 95.5 fL (81-99); MONOCYTES # (AUTO) 0.6 (0.2-0.8); MONOCYTES % 11.3 % (4.4-11.3); NEUTROPHILS # (AUTO) 2.3 (2.1-6.9); NEUTROPHILS % 41.6 % (38.7-80.0); PLATELET COUNT 98 x10e3/uL (140-360); RED BLOOD COUNT 3.53 x10e6/uL (4.3-5.7); RED CELL DISTRIBUTION WIDTH 15.3 % (11.7-14.4)
[2020-09-08 06:01] LABS: ALANINE AMINOTRANSFERASE 76 IU/L (0-55); ALBUMIN 2.8 g/dL (3.5-5.0); ALBUMIN/GLOBULIN RATIO 1.1 (0.8-2.0); ALKALINE PHOSPHATASE 150 IU/L (40-150); ANION GAP 11.1 mmol/L (8-16); BLOOD UREA NITROGEN 13 mg/dL (7-26); BUN/CREATININE RATIO 16 (6-25); CARBON DIOXIDE 26 mmol/L (22-29); CHLORIDE 106 mmol/L (98-107); CREATININE, SERUM 0.83 mg/dL (0.72-1.25); EST GLOMERULAR FILTRATION RATE > 60 ML/MIN (60-); GLUCOSE 185 mg/dL (74-118); POTASSIUM 4.1 mmol/L (3.5-5.1); SODIUM 139 mmol/L (136-145)
[2020-09-08] MEDS: SODIUM CHLORIDE 0.9% 1000ML 1,000 ML IV SCH (06:20)
[2020-09-08] MEDS: VANCOMYCIN 750MG/NS 150ML IVPB 150 ML IV SCH ×2 (07:45→19:07)
[2020-09-08] MEDS: METFORMIN HCL 500 MG TAB PO SCH ×2 (08:29→16:55)
[2020-09-08] MEDS: VENLAFAXINE HCL 75 MG TAB PO SCH (08:29)
[2020-09-08] MEDS: INSULIN LISPRO 100 UNIT/1 ML 3ML VIAL SQ SCH ×4 (08:30→20:50)
[2020-09-08] MEDS: INSULIN GLARGINE 100 UNITS/ML VIAL SQ SCH (20:50)
[2020-09-08] MEDS: SIMVASTATIN 40 MG TAB PO SCH (21:00)
[2020-09-09] VITALS (8 sets, daily range): BP systolic 127–148; BP diastolic 53–79
[2020-09-09] MEDS: PIPERACILLIN/TAZOBAC 3.375 GM in SODIUM CHLORIDE 0.9% 50ML 50 ML IV SCH ×4 (03:21→21:17)
[2020-09-09] MEDS: VANCOMYCIN 750MG/NS 150ML IVPB 150 ML IV SCH (05:37)
[2020-09-09] MEDS ORDERED: VANCOMYCIN HCL 1 GM VIAL ONE ×2 (06:30→06:53)
[2020-09-09] MEDS ORDERED: BUPIVACAINE HCL 0.5% INJ 30 ML VIAL INJ ONE (06:30)
[2020-09-09] MEDS: INSULIN LISPRO 100 UNIT/1 ML 3ML VIAL SQ SCH ×4 (07:30→21:00)
[2020-09-09] MEDS: VENLAFAXINE HCL 75 MG TAB PO SCH (08:49)
[2020-09-09] MEDS: METFORMIN HCL 500 MG TAB PO SCH ×2 (08:49→17:26)
[2020-09-09] MEDS ORDERED: FENTANYL CITRATE/PF 100MCG/2 ML INJ ONE (13:13)
[2020-09-09] MEDS ORDERED: LIDOCAINE HCL 2% LOCAL INJ 5 ML SDV VIAL INJ ONE (17:49)
[2020-09-09] MEDS ORDERED: SEVOFLURANE INHAL SOLN 250 ML PEN BTL ONE (17:49)
[2020-09-09] MEDS ORDERED: ONDANSETRON HCL INJ 2MG/ML 2ML 2 MG/ML VIAL ONE (17:49)
[2020-09-09] MEDS ORDERED: PROPOFOL IV EMULSION 10 MG/ML 20 ML VIAL ONE (17:49)
[2020-09-09] MEDS ORDERED: LIDOCAINE HCL 2% JELLY 5 ML TUBE ONE (17:49)
[2020-09-09] MEDS ORDERED: POVIDONE IODINE 0.05% 0.05 % ML PO ONE (17:49)
[2020-09-09] MEDS: VANCOMYCIN 1GM/NS 250 ML 250 ML IV SCH (18:00)
[2020-09-09] MEDS: SIMVASTATIN 40 MG TAB PO SCH (21:00)
[2020-09-09] MEDS: INSULIN GLARGINE 100 UNITS/ML VIAL SQ SCH (21:00)
[2020-09-10] VITALS (7 sets, daily range): BP systolic 126–145; BP diastolic 52–61
[2020-09-10] MEDS: PIPERACILLIN/TAZOBAC 3.375 GM in SODIUM CHLORIDE 0.9% 50ML 50 ML IV SCH ×4 (03:46→22:00)
[2020-09-10] MEDS: VANCOMYCIN 1GM/NS 250 ML 250 ML IV SCH ×2 (05:39→18:00)
[2020-09-10] MEDS: INSULIN LISPRO 100 UNIT/1 ML 3ML VIAL SQ SCH ×4 (07:30→21:00)
[2020-09-10] MEDS: VENLAFAXINE HCL 75 MG TAB PO SCH (09:12)
[2020-09-10] MEDS: METFORMIN HCL 500 MG TAB PO SCH ×2 (09:13→17:34)
[2020-09-10] MEDS ORDERED: ONDANSETRON HCL 4 MG ORAL DISINTEGRATING TAB PO PRN (13:30)
[2020-09-10] MEDS: INSULIN GLARGINE 100 UNITS/ML VIAL SQ SCH (21:00)
[2020-09-10] MEDS: SIMVASTATIN 40 MG TAB PO SCH (21:00)
[2020-09-11] VITALS (7 sets, daily range): BP systolic 126–141; BP diastolic 53–62
[2020-09-11] MEDS: PIPERACILLIN/TAZOBAC 3.375 GM in SODIUM CHLORIDE 0.9% 50ML 50 ML IV SCH ×3 (03:02→16:47)
[2020-09-11] MEDS: VANCOMYCIN 1GM/NS 250 ML 250 ML IV SCH (05:36)
[2020-09-11 06:04] LABS: BASOPHILS # (AUTO) 0.1 (0.0-0.1); EOSINOPHILS # (AUTO) 0.3 (0.0-0.4); EOSINOPHILS % 4.8 % (0.0-6.0); HEMOGLOBIN 10.6 g/dL (14.0-18.0); LYMPHOCYTES # (AUTO) 2.6 (1.0-3.2); LYMPHOCYTES % 44.1 % (18.0-39.1); MEAN CORPUSCULAR HGB CONC 33.1 g/dL (31-35); MEAN CORPUSCULAR VOLUME 96.7 fL (81-99); MONOCYTES # (AUTO) 0.6 (0.2-0.8); MONOCYTES % 9.9 % (4.4-11.3); NEUTROPHILS # (AUTO) 2.3 (2.1-6.9); PLATELET COUNT 89 x10e3/uL (140-360); RED BLOOD COUNT 3.31 x10e6/uL (4.3-5.7); RED CELL DISTRIBUTION WIDTH 15.2 % (11.7-14.4)
[2020-09-11 06:18] LABS: ANION GAP 11.9 mmol/L (8-16); BLOOD UREA NITROGEN 14 mg/dL (7-26); BUN/CREATININE RATIO 18 (6-25); CARBON DIOXIDE 23 mmol/L (22-29); CHLORIDE 108 mmol/L (98-107); CREATININE, SERUM 0.79 mg/dL (0.72-1.25); EST GLOMERULAR FILTRATION RATE > 60 ML/MIN (60-); GLUCOSE 112 mg/dL (74-118); POTASSIUM 3.9 mmol/L (3.5-5.1); SODIUM 139 mmol/L (136-145)
[2020-09-11] MEDS: INSULIN LISPRO 100 UNIT/1 ML 3ML VIAL SQ SCH ×3 (07:30→16:56)
[2020-09-11] MEDS: METFORMIN HCL 500 MG TAB PO SCH ×2 (08:00→16:51)
[2020-09-11] MEDS: VENLAFAXINE HCL 75 MG TAB PO SCH (09:04)
[2020-09-11] MEDS ORDERED: CEFTRIAXONE SOD 2 GM/100 ML ML IV ONE (11:45)
[2020-09-11] MEDS ORDERED: CEFTRIAXONE SOD 2 GM 100 ML IV ONE (12:00)
== END 2020-09-11 18:23 | disposition home health service (06) | DRG 464 ==
LOC: ER 14:59 → ERHOLD 16:28 → MED/SURG3 20:27
PROVIDERS: ADMIT Family Medicine; ATTEND Family Medicine
PROC: 0JBR0ZZ Excision of Left Foot Subcutaneous Tissue and Fascia, Open Approach (ICD-10-PCS; principal; 2020-09-07)
PROC: 0QH Lower Bones, Insertion (ICD-10-PCS; 2020-09-07)
PROC: 02HV33Z Insertion of Infusion Device into Superior Vena Cava, Percutaneous Approach (ICD-10-PCS; 2020-09-10)
CPT/HCPCS: 36415; 36569; 71045; 80048; 80053; 80202; 82550; 82553; 82948; 83605; 83735; 84484; 85025; 85610; 85651; 85730; 87040; 87071; 87205; 93005; 93925; 97139; 99251; 99284; C1713; J0696; J1815; J2001; J2405; J2543; J3010; J3370; J7030; U0002

== ENCOUNTER → 2021-07-07 | Day surgery (SDC) | payer MEDICARE ==
[2021-07-05 13:23] LABS: BASOPHILS # (AUTO) 0.1 (0.0-0.1); BASOPHILS % 1.3 % (0.0-1.0); EOSINOPHILS # (AUTO) 0.4 (0.0-0.4); EOSINOPHILS % 6.8 % (0.0-6.0); HEMATOCRIT 28.9 % (38.2-49.6); HEMOGLOBIN 8.9 g/dL (14.0-18.0); LYMPHOCYTES # (AUTO) 3.1 (1.0-3.2); LYMPHOCYTES % 50.3 % (18.0-39.1); MEAN CORPUSCULAR HEMOGLOBIN 26.9 pg (28-32); MEAN CORPUSCULAR HGB CONC 30.8 g/dL (31-35); MEAN CORPUSCULAR VOLUME 87.3 fL (81-99); MONOCYTES # (AUTO) 0.7 (0.2-0.8); MONOCYTES % 11.4 % (4.4-11.3); NEUTROPHILS # (AUTO) 1.8 (2.1-6.9); PLATELET COUNT 137 x10e3/uL (140-360); RED BLOOD COUNT 3.31 x10e6/uL (4.3-5.7); RED CELL DISTRIBUTION WIDTH 14.6 % (11.7-14.4)
[2021-07-05 13:38] LABS: INR 1.07; PROTHROMBIN TIME 14.9 seconds (11.9-14.5)
[2021-07-05 13:39] LABS: PARTIAL THROMBOPLASTIN TIME 30.5 seconds (23.8-35.5)
[2021-07-05 13:45] LABS: ALBUMIN 2.9 g/dL (3.5-5.0); ANION GAP 11.1 mmol/L (8-16); CALCIUM 8.5 mg/dL (8.4-10.2); CREATININE, SERUM 1.06 mg/dL (0.72-1.25); POTASSIUM 4.1 mmol/L (3.5-5.1)
[~2021-07-07] MED LIST changes: +IRON; +POVIDONE IODINE 0.05% 0.05 % ML PO ONE; +PROPOFOL IV EMULSION 10 MG/ML 20 ML VIAL ONE; +TEMAZEPAM15 MG PO
[2021-07-07 12:43] VITALS: BP 162/76
== END | disposition home or self-care (01) ==
LOC: OR 09:48
PROVIDERS: ATTEND Internal Medicine Gastroenterology
DX: D50.0 Iron deficiency anemia secondary to blood loss (chronic) (principal); K74.60 Unspecified cirrhosis of liver; I85.10 Secondary esophageal varices without bleeding; K29.00 Acute gastritis without bleeding; K44.9 Diaphragmatic hernia without obstruction or gangrene; K55.20 Angiodysplasia of colon without hemorrhage; K76.6 Portal hypertension; K31.89 Other diseases of stomach and duodenum; K59.1 Functional diarrhea; Q27.33 Arteriovenous malformation of digestive system vessel; K57.30 Diverticulosis of large intestine without perforation or abscess without bleeding; K64.8 Other hemorrhoids; E11.9 Type 2 diabetes mellitus without complications; I10 Essential (primary) hypertension; Z01.810 Encounter for preprocedural cardiovascular examination; Z01.812 Encounter for preprocedural laboratory examination; Z20.822 Contact with and (suspected) exposure to COVID-19; Z79.4 Long term (current) use of insulin; Z79.899 Other long term (current) drug therapy
CPT/HCPCS: 36415 ×2; 43239; 43244; 45378; 80053; 82948; 85025; 85610; 85730; 93005; J2704; U0002

== ENCOUNTER → 2021-10-13 | Day surgery (SDC) | payer MEDICARE ==
[2021-10-11 09:53] LABS: BASOPHILS # (AUTO) 0.1 (0.0-0.1); BASOPHILS % 1.5 % (0.0-1.0); EOSINOPHILS # (AUTO) 0.4 (0.0-0.4); EOSINOPHILS % 6.1 % (0.0-6.0); HEMATOCRIT 27.9 % (38.2-49.6); LYMPHOCYTES # (AUTO) 3.9 (1.0-3.2); LYMPHOCYTES % 54.5 % (18.0-39.1); MEAN CORPUSCULAR HEMOGLOBIN 22.5 pg (28-32); MEAN CORPUSCULAR HGB CONC 28.7 g/dL (31-35); MEAN CORPUSCULAR VOLUME 78.6 fL (81-99); MONOCYTES # (AUTO) 0.5 (0.2-0.8); MONOCYTES % 6.6 % (4.4-11.3); NEUTROPHILS # (AUTO) 2.2 (2.1-6.9); NEUTROPHILS % 31.3 % (38.7-80.0); PLATELET COUNT 162 x10e3/uL (140-360); RED BLOOD COUNT 3.55 x10e6/uL (4.3-5.7); RED CELL DISTRIBUTION WIDTH 17.6 % (11.7-14.4)
[2021-10-11 10:13] LABS: INR 1.04; PROTHROMBIN TIME 14.5 seconds (11.9-14.5)
[2021-10-11 10:17] LABS: ANION GAP 13.3 mmol/L (8-16); CALCIUM 8.8 mg/dL (8.4-10.2); CREATININE, SERUM 1.13 mg/dL (0.72-1.25); POTASSIUM 4.3 mmol/L (3.5-5.1)
[2021-10-11 10:25] LABS: PARTIAL THROMBOPLASTIN TIME 30.6 seconds (23.8-35.5)
[2021-10-11 10:36] LABS: EOSINOPHILS % (MANUAL) 8 % (0-7); LYMPHOCYTES % (MANUAL) 54 % (19-48); MONOCYTES % (MANUAL) 3 % (3.4-9.0); NEUTROPHILS % (MANUAL) 35 % (40-74)
[2021-10-11 10:37] LABS: ANISOCYTOSIS SLIGHT; HYPOCHROMASIA SLIGHT; OVALOCYTES FEW; PLATELET ESTIMATE ADEQUATE; PLATELET MORPHOLOGY COMMENT NORMAL; RBC MORPHOLOGY COMMENT NORMAL
[~2021-10-13] MED LIST changes: +CIPRO250 MG PO; +FUROSEMIDE40 MG PO; +INSULIN REGULAR, HUMAN 100 UNIT/1 ML ONE; +SPIRONOLACTONE25 MG PO
[2021-10-13 12:45] VITALS: BP 128/65
== END | disposition home or self-care (01) ==
LOC: OR 09:14
PROVIDERS: ATTEND Internal Medicine Gastroenterology
DX: K55.20 Angiodysplasia of colon without hemorrhage (principal); I85.01 Esophageal varices with bleeding; K29.00 Acute gastritis without bleeding; D50.0 Iron deficiency anemia secondary to blood loss (chronic); K70.30 Alcoholic cirrhosis of liver without ascites; K44.9 Diaphragmatic hernia without obstruction or gangrene; K57.30 Diverticulosis of large intestine without perforation or abscess without bleeding; I10 Essential (primary) hypertension; Z68.24 Body mass index [BMI] 24.0-24.9, adult; Z86.010 Personal history of colon polyps; E11.9 Type 2 diabetes mellitus without complications; Z86.73 Personal history of transient ischemic attack (TIA), and cerebral infarction without residual deficits; Z01.810 Encounter for preprocedural cardiovascular examination; Z01.812 Encounter for preprocedural laboratory examination; Z20.822 Contact with and (suspected) exposure to COVID-19; Z79.4 Long term (current) use of insulin
CPT/HCPCS: 0223U; 36415 ×2; 43239; 80053; 82948; 85025; 85610; 85730; 93005; J2704; J1817